=== PATIENT | female | born 1960 | race Caucasian/White ===

== ENCOUNTER → 2016-07-03 | Outpatient (REF) | payer OTHER ==
[~2016-07-03] MED LIST: /ADVA50050; /ADVA50050 IN; /ESOM40CA; /ESOM40CA OR; /ESOM40CA PO; /IPRAINH IN; /LAMO10TA PO; /METO25TAB PO; /MOM400 PO; /TIOT18INH; /TIOT18INH INH; /TRAZ15TA PO; /WARF2TA PO; /WARF3TA PO; /WARF5TA PO; ACET65TA; ACET65TA OR; ADV250INH INH; ADV500INH INH; ALBU17IN INH; ALBU17IN2 INH; ALBU83IN IN; ALBUTEROL INHL INH; ALBUTEROL LIQ INH; ALDA25TA2 PO; ANTIBIOTIC PO; APRESOLINE PO; ASPI81CH PO; ASPI81TA7 PO; ASPI81TA85 PO; ATIV1TAB10 PO; ATIV1TAB2 OR; ATIV1TAB2 PO; ATIV1TAB7 PO; ATROVENT0.02% INH; BABY81CH OR; BACITAB PO; BACITAB3 PO; BISAC5TA PO; CALC12502 PO; CARA1TAB2 PO; CEFT500T; CHOLPOW39 PO; CLAR10CA3 PO; CLEO150C PO; CLON0.5T; CLON1TAB OR; CLONAZAPAM PO; COLA100C PO; COLA100C2; COLA100C2 OR; COMBVENT; CORTOTSO AS; COUM2.5T11 PO; CYCL10TA PO; DOCU10ELUD PO; DOXY100T IV; DOXY100T OR; DOXY150C PO; DOXY75CA3 PO; DRIS1CAP PO; DULC5TAB PO; DUONSOL IN; DUONSOL NEB; Drisdol PO; EFFE150C; EFFE150C OR; EFFEXOR PO; EYEDRO OU; FERR325T3 PO; FLEXERIL PO; FLOVENT INH; FLUO20CA8 PO; FOLI1TAB OR; FOLI1TAB PO; FOSI10TA2; FOSI10TA2 PO; FOSI20TA2 OR; FURO40TA2 PO; HYDR25TA6; HYDR25TA6 OR; INVA1INJ IV; LAMI1TAB7 PO; LAMI25TA PO; LAMO10TA PO; LASI40TA OR; LASI40TA PO; LASI80TA PO; LEVA12INH INH; LEVA750T PO; LISI40TA OR; LOPR50TA PO; LORA10TA2 PO; LORA1TAB PO; LORA2TA PO; LYRI75CA OR; MAALOX PO; MAG OX PO; MAGN64TASA PO; META28.35 PO; METAPKT PO; METO12TA PO; METO25TA2 PO; METO25TA74 PO; MICRO K EXTENCAPS PO; MIRA3350 PO; MOM30SS PO; MONOPRIL PO; MYCOSTATIN SS; MYLI40DR PO; Metoprolol PO; NEUR300C; NEUR300C OR; NICO21DI4; NICO21DI4 TD; NITR4TASL SL; NYST1000 MT; NYST1000 PO; NYST1000 SS; NYSTATIN ORAL; NYSTATIN ORAL PO; NYSTATIN ORAL SS; NYSTATIN S PO; OCEAN NASAL SPRAY; OCEASPR; OXYGEN; OXYGEN INH; Oxygen; PAME50CA OR; PAXI20TA OR; PAXI20TA3 PO; PERC5TAB6 PO; PERC5TAB8 OR; PERC7.5T12 PO; PERC7.5T8 OR; PERC7.5T8 PO; PERCOCET PO; POTA10CA32 PO; PRED10TA PO; PRED10TA2; PRED10TA2 OR; PRED10TA2 PO; PRED1TA; PRED1TAB32 PO; PRED20TA OR; PRED20TA PO; PRED20TAB PO; PRED50TA OR; PRED50TA PO; PRED5SOL2 PO; PRED5TAB PO; PRIL40CA PO; PRINZIDE PO; PROZ40CA PO; PULM0.5S INH; RYZOLT PO; SALMDISK INH; SENN8.6T5; SENO8.6T9 PO; SIME40DR2 PO; SIMV20TA2; SIMV20TA2 OR; SIMV20TA2 PO; SING10TA31; SING10TA31 OR; SOLUMEDROL IV; SPIR1CAP INH; SPIR25TA2 PO; SPIRIVA HANDIHALER INH; SYMB80AE IN; TESS100C OR; TESS100C PO; THEO300C; THEO300C OR; THEO300C PO; THEODUR; TIOT18INH INH; TOPI100T OR; TOPR25TA PO; TRAM50TA2; TRAM50TA2 OR; TRAZ100T OR; TRAZ150T OR; TRAZ150T14 PO; TRAZ50TA; TRAZADONE OR; TRILIPIX PO; TUMS1000 PO; TYLE325T5 PO; ULTRTA PO; VENL37.5 OR; VENTAER INH; VIBR100C PO; VIT D PO; VITA100T PO; VITA200015 PO; VITA200016 PO; VITA20008 PO; VITA25003 PO; VITAMIN D50000 UNT PO; WARF-23 PO; WARF05TA PO; XANA0.5T; XANA0.5T OR; XOPE0.632 IN; XOPE1.252; XOPE1.252 IN; XOPE1.252 INH; ZANT300T PO; ZEST20TA4 OR; ZITH250T PO; ZITH500T; ZITH500T OR; ZITHTAB OR; ZOCO20TA PO; ZOFR20TA PO; [UNRECOGNIZED DRUG - CODE] PO; [UNRECOGNIZED DRUG - OTHER] NEB; [UNRECOGNIZED DRUG - OTHER] PO; [UNRECOGNIZED DRUG - OTHER] PO; [UNRECOGNIZED DRUG - OTHER] PO; [UNRECOGNIZED DRUG - OTHER] PO; lisinopril/hctz; paxil PO; potassium PO; robitussin PO
[2016-07-03 16:17] LABS: CALCIUM LEVEL 9.7 MG/DL (8.5-10.1); CREATININE FOR GFR 1.14 MG/DL (0.55-1.02); GLOMERULAR FILTRATION RATE 52.1 (>51); POTASSIUM SERUM 3.8 MEQ/L (3.5-5.1)
== END ==
LOC: M SFHCPLAZ 13:53
PROVIDERS: ATTEND Family Medicine
DX: E55.9 Vitamin D deficiency, unspecified (principal); I50.30 Unspecified diastolic (congestive) heart failure

== ENCOUNTER 2016-07-04 13:38 | Emergency (ER) | payer OTHER ==
[2016-07-04] MEDS ORDERED: IPRATROPIUM 0.5MG/ALBUTEROL 2.5MG INH SOL UD 3ML (DUONEB)(J7620) As Ordered ONE (14:57)
[2016-07-04 15:19] LABS: ABG BASE EXCESS 7.5 (-2.0-2.0); ABG DEVICE NASAL CANN; ABG STANDARD HCO3 31.4 MEQ/L (22.0-26.0); ABG pH (ARTERIAL) 7.365 UNITS (7.350-7.450)
[2016-07-04 15:22] LABS: ABG PARTIAL PRESSURE O2 122.7 mmHg (75.0-100.0)
[2016-07-04 15:25] LABS: ABG PARTIAL PRESSURE CO2 55.4 mmHg (35.0-45.0)
[2016-07-04 15:35] LABS: CALCIUM LEVEL 9.8 MG/DL (8.5-10.1); CREATININE FOR GFR 1.05 MG/DL (0.55-1.02); GLOMERULAR FILTRATION RATE 57.3 (>51); POTASSIUM SERUM 3.8 MEQ/L (3.5-5.1)
[2016-07-04 15:36] LABS: BASO % 0.4 % (0.0-1.0); EOS # 0.2 K/mm3 (0.0-0.50); EOS % 3.4 % (0.0-3.0); LARGE UNSTAINED CELL # 0.1 K/mm3 (0.0-0.4); LARGE UNSTAINED CELL % 2.1 % (0.0-4.0); LYMPH # 1.2 K/mm3 (1.5-4.5); LYMPH % 23.4 % (24.0-44.0); MEAN CORPUSCULAR HGB CONC 33.7 g/dl (32.0-36.5); MEAN CORPUSCULAR VOLUME 91.9 fl (80.0-96.0); MONO # 0.3 K/mm3 (0.0-0.8); MONO % 6.6 % (0.0-5.0); NEUTROPHILS # 3.1 K/mm3 (1.8-7.7); NEUTROPHILS % 64.1 % (36.0-66.0); PLATELET COUNT, AUTOMATED 218 k/mm3 (150-450); RED CELL DISTRIBUTION WIDTH 12.5 % (11.5-14.5); WHITE BLOOD COUNT 4.9 K/mm3 (4.0-10.0)
--- NOTE | 2016-07-04 15:57 | REP ---
Chest x-ray: Two views. History: Shortness of breath. Comparison chest x-ray is June 14, 2016. Findings: The lungs are symmetrically aerated and clear. Pleural angles are sharp. Heart size is normal. Pulmonary vasculature is not increased. Oxygen tubing and EKG monitoring electrodes overlie the chest. There is moderate wedging in one of the mid-thoracic vertebrae consistent with an osteoporotic wedge compression fracture deformity. This is unchanged when compared with the December 22, 2014 prior chest x-ray. Impression: No active disease. Old wedge compression fracture deformity in the mid T-spine. Signed by Braden Garrett MD 07/04/2016 04:27 P
--- NOTE | 2016-07-04 19:23 | EDDOCDS ---
Nurse's Notes [facility] Name: Katrin Alfred Age: 56 yrs Sex: Female : 1960 Arrival Date: 07/04/2016 Time: 13:38 Bed 19 Private MD: Shailesh Chu Diagnosis: Chronic obstructive pulmonary disease with (acute) exacerbation-resolved Presentation: 07/04 13:56 Presenting complaint: Patient states: SOB since leaving doctors office yesterday, cough [facility] with yellow sputum, cold symptoms. Adult Sepsis Screening: The patient does not have new or worsening altered mentation. Patient has a respiratory rate of greater than or equal to 22 (1 point). Systolic blood pressure is greater than 100. Patient has a qSOFA score of 1- Negative Sepsis Screen. Suicide/Homicide risk assessment- the patient denies having any suicidal and/or homicidal ideations and does not present with any other emotional, behavioral or mental health complaints. 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 Transition of care: patient was not received from another setting of care. Care prior to arrival: Medications administered prior to arrival: Duoneb Saline lock initiated. 13:56 Acuity: TAMIA Level 3 [facility] 13:56 Method Of Arrival: Ambulance [facility] Triage Assessment: 14:00 General: Appears in no apparent distress, Behavior is cooperative. Pain: Denies pain. [facility] HIV screening NA for this visit Offered previously. The patient is triaged at the bedside. See Assessment in Nurses Notes section of ED record. Neurological: Level of Consciousness is awake, alert, Oriented to person, place, time. Respiratory: Onset: The symptoms/episode began/occurred yesterday, Airway is patent Respiratory effort is even, unlabored, Respiratory pattern is regular, Breath sounds are diminished Breath sounds with wheezes. Derm: Skin is pink, warm & dry. Historical: - Allergies: Cephalexin; CLAVULANIC ACID; Erythromycin; iopamidol; Methylprednisolone; Morphine; moxifloxacin; PENICILLINS; QUINOLONES; SULFA (SULFONAMIDES); Ciprofloxacin; Augmentin; - Home Meds: 1. Albuterol Inhl as needed 2. aspirin 81 mg Oral tab 1 tab once daily 3. benzonatate 100 mg oral cap 1 cap as needed 4. bisacodyl 5 mg Oral tab 2 tabs once daily 5. budesonide oral once daily 6. ferrous sulfate 325 mg (65 mg iron) Oral TbEC 7. fluoxetine 40 mg Oral cap 1 cap once daily 8. furosemide 40 mg Oral tab 1 tab 2 times per day 9. lamotrigine 100 mg Oral tab 1 tab once daily 10. loratadine 10 mg Oral TbDL 1 tab once daily 11. lorazepam 0.5 mg Oral tab as needed 12. Miralax 17 gram/dose Oral powd once daily 13. omeprazole 40 mg Oral cpDR 1 cap once daily 14. ondansetron HCl 4 mg Oral tab every 6 hours 15. Percocet 5-325 mg Oral tab as needed 16. simethicone 40 mg/0.6 mL Oral drps as needed 17. simvastatin 20 mg Oral tab 1 tab once daily 18. Spiriva with HandiHaler 18 mcg Inhl CpDv 1 cap once daily 19. spironolactone 25 mg Oral tab once daily 20. trazodone 150 mg Oral tab nightly 21. warfarin 2.5 mg Oral tab 1 tab once daily 22. O2 2L NC - PMHx: Anxiety; Asthma; CHF; COPD; Depression; DVT; GERD; Hypercholesterolemia; Hypertension; - PSHx: Bladder suspension; Cataract Surgery- Bilateral; Tonsillectomy; Hysterectomy; - The history from nurses notes was reviewed: and I agree with what is documented. - Social history: Smoking status: Patient states former smoker of tobacco. No barriers to communication noted. - Family history: Not pertinent. - : The pt / caregiver states he / she is on anticoagulants: coumadin. Home medication list is obtained from the patient. - Hospitalizations: : The patient was recently seen at [facility], and discharged 2 month(s) ago. - Exposure Risk Screening:: None identified. - Immunization history:: All immunizations up-to-date. - Social history:: the patient smokes cigarettes the patient does not drink alcohol. Screenin:40 Infection Control. lbd 14:20 Screening information is obtained from the patient. Fall risk: No risks identified. [facility] Assistance ADL's: requires no assistance with activities of daily living. Abuse/DV Screen: The patient / caregiver reports he/she is: not in a situation that causes fear, pain or injury. Nutritional screening: No deficits noted. Advance Directives: There is no active DNR order. home support is adequate. Assessment: 14:03 General: see bedside triage assessment. Cardiovascular: Chest pain is denied. [facility] Respiratory: Airway is patent Respiratory effort is even, unlabored, Breath sounds are diminished Breath sounds with wheezes. 15:30 General: appears comfortable, breathing easier after respiratory treatments, denies [facility] needs at present. 16:36 General: Appears in no apparent distress, comfortable, Behavior is appropriate for age, cjh cooperative, no changes from previous, appears comfortable, denies needs at present. 17:43 General: Appears in no apparent distress, comfortable, Behavior is cooperative, reports cj increased pain in neck and back due to chronic issues and requesting pain meds which she states she would normally take at home, provider informed. No other problems or complaints voiced, patient states "I want to go home". 18:28 General: no new problems or complaints, awaiting medicaid transportation, called and [facility] arranged. reviewed discharge instructions, denies problems or complaints. Vital Signs: 14:00 BP 125 / 71; Pulse 103; Resp 22; Temp 100.4(TE); Pulse Ox 99% 2 lpm ; Weight 104.3 kg; [facility] Height 5 ft. 2 in. (157.48 cm); Pain 0/10; 14:20 BP 139 / 94 (auto/); [facility] 14:20 Pulse 96 MON; Pulse Ox 100% ; [facility] 15:22 BP 131 / 77 (auto/); [facility] 15:24 Pulse 102 MON; Pulse Ox 91% ; [facility] 16:51 Pulse 116 MON; Pulse Ox 97% ; [facility] 16:51 BP 142 / 93 (auto/); [facility] 17:36 Pulse 102 MON; Pulse Ox 95% ; [facility] 17:36 BP 142 / 98 (auto/); [facility] 17:47 BP 142 / 98; Pulse 103; Resp 18; Temp 97.3; Pulse Ox 95% ; Pain 7/10; h 18:09 Temp 97.8(O); ar3 14:00 Body Mass Index 42.06 (104.30 kg, 157.48 cm) [facility] Vitals: 14:00 Log In Time N/A - ambulance arrival. [facility] ED Course: 13:39 Patient visited by Renata Camacho, Medical Chemist. lbd 13:39 Shailesh Chu DO is Private Physician. lbd 13:39 Patient moved to Waiting lbd 13:39 Patient moved to 19 lbd 13:55 Diego Ramos MD is Attending Physician. pc 13:58 Triage Initiated cjh 14:20 Patient visited by Radha Melara PCA. ct3 14:20 The patient / caregiver is instructed regarding the plan of care and ED course. cjh 14:20 Maintain field IV. Gauge & site: left hand 22 guage. No procedures done that require [facility] assistance. 14:44 Patient visited by Diego Ramos MD. pc 14:53 EKG done. (by ED staff). Reviewed by Diego Ramos MD. ar3 14:54 Patient visited by Deysi Garcia PCA. ar3 15:04 CBC with Diff Sent. kcs 15:04 Basic Metabolic Profile Sent. kcs 15:04 B-Type Natiuretic Peptide Sent. kcs 15:05 -Blood Culture Sent. kcs 15:10 -Arterial Blood Gas Sent. sd7 15:23 Assisted to bedside commode. ar3 15:24 Patient visited by Deysi Garcia PCA. ar3 15:59 [facility] Payment Agreement was scanned into De[employer] and attached to record. gjb 16:28 Patient visited by Radha Melara PCA. ct3 16:33 Chest, 2 View (pa\\E\\lat) Returned. EDMS 16:51 Patient visited by Maggie Cordova. dem1 16:51 Assisted to bedside commode. dem1 17:27 Chest, 2 View (pa\\E\\lat) Returned. EDMS 17:43 [facility] is Referral Physician. pc 18:10 Patient visited by Deysi Garcia PCA. ar3 18:28 Discontinued lock intact, bleeding controlled, pressure dressing applied, No [facility] redness/swelling at site. Administered Medications: 15:05 Drug: Albuterol-Ipratropium 1 neb [ipratropium-albuterol 0.5 mg-3 mg(2.5 mg base)/3 mL sd7 nebulization soln (1 neb)] Route: Nebulizer; 15:14 Follow up: Response: Nebulizer completed sd7 15:35 Drug: Albuterol-Ipratropium 1 neb [ipratropium-albuterol 0.5 mg-3 mg(2.5 mg base)/3 mL sd7 nebulization soln (1 neb)] Route: Nebulizer; 15:45 Follow up: Response: Nebulizer completed sd7 16:15 Drug: Albuterol-Ipratropium 1 neb [ipratropium-albuterol 0.5 mg-3 mg(2.5 mg base)/3 mL sd7 nebulization soln (1 neb)] Route: Nebulizer; 16:25 Follow up: Response: Nebulizer completed sd7 RT: 15:00 ABG's drawn from right radial artery allens test done and positive pressure held for 5 sd7 minutes no bleeding noted pressure bandage applied specimen sent pt. tolerated well. 15:05 Initial Med Neb Given as ordered Patient was instructed and evaluated on procedure sd7 Patient tolerated procedure well without adverse effect. Respiratory: Breath sounds are diminished bilaterally. 15:35 Subsequent Med Neb Given as ordered Patient tolerated procedure well without adverse sd7 effect. Respiratory: Breath sounds are diminished bilaterally. 16:15 Subsequent Med Neb Given as ordered Patient tolerated procedure well without adverse sd7 effect. Respiratory: Breath sounds are diminished bilaterally. Order Results: Lab Order: -Arterial Blood Gas; SPEC'M 07/04/16 14:59 Test: ABG pH (ARTERIAL); Value: 7.365; Range: 7.350-7.450; Units: UNITS; Status: F Test: ABG PARTIAL PRESSURE CO2; Value: 55.4; Range: 35.0-45.0; Abnormal: Above high normal; Units: mmHg; Status: F Test: ABG PARTIAL PRESSURE O2; Value: 122.7; Range: 75.0-100.0; Abnormal: Above high normal; Units: mmHg; Status: F Test: ABG TOTAL CO2; Value: 37.0; Range: 22.0-29.0; Abnormal: Above high normal; Units: MEQ/L; Status: F Test: ABG HCO3; Value: 35.0; Range: 22.0-26.0; Abnormal: Above high normal; Units: MEQ/L; Status: F Test: ABG BASE EXCESS; Value: 7.5; Range: -2.0-2.0; Abnormal: Above high normal; Status: F Test: ABG STANDARD HCO3; Value: 31.4; Range: 22.0-26.0; Abnormal: Above high normal; Units: MEQ/L; Status: F Test: ABG O2 SATURATION; Value: 98.8; Range: 95.0-99.0; Units: %; Status: F Test: ABG DEVICE; Value: NASAL PHANI; Status: F Lab Order: B-Type Natiuretic Peptide; SPEC'M 07/04/16 15:06 Test: BRAIN NATRIURETIC PEPTIDE; Value: < 5.0; Range: <100; Units: PG/ML; Status: F Lab Order: Basic Metabolic Profile; SPEC'07/04/16 15:06 Test: GLUCOSE, FASTING; Value: 98; Range: 70-105; Units: MG/DL; Status: F Test: BLOOD UREA NITROGEN; Value: 13; Range: 7-18; Units: MG/DL; Status: F Test: CREATININE FOR GFR; Value: 1.05; Range: 0.55-1.02; Abnormal: Above high normal; Units: MG/DL; Status: F Test: GLOMERULAR FILTRATION RATE; Value: 57.3; Range: >51; Status: F Test: SODIUM LEVEL; Value: 139; Range: 136-145; Units: MEQ/L; Status: F Test: POTASSIUM SERUM; Value: 3.8; Range: 3.5-5.1; Units: MEQ/L; Status: F Test: CHLORIDE LEVEL; Value: 97; Range: 98-107; Abnormal: Below low normal; Units: MEQ/L; Status: F Test: CARBON DIOXIDE LEVEL; Value: 35; Range: 21-32; Abnormal: Above high normal; Units: MEQ/L; Status: F Test: ANION GAP; Value: 7; Range: 8-16; Abnormal: Below low normal; Units: MEQ/L; Status: F Test: CALCIUM LEVEL; Value: 9.8; Range: 8.5-10.1; Units: MG/DL; Status: F Test Note: ; Units are mL/min/1.73 m2 Chronic Kidney Disease Staging per NKF: Stage I & II GFR >=60 Normal to Mildly Decreased Stage III GFR 30-59 Moderately Decreased Stage IV GFR 15-29 Severely Decreased Stage V GFR <15 Very Little GFR Left ESRD GFR <15 on SET UP OPERATOR TOOL Lab Order: CBC with Diff; SPEC'M 07/04/16 15:06 Test: WHITE BLOOD COUNT; Value: 4.9; Range: 4.0-10.0; Units: K/mm3; Status: F Test: RED BLOOD COUNT; Value: 4.31; Range: 4.00-5.40; Units: M/mm3; Status: F Test: HEMOGLOBIN; Value: 13.4; Range: 12.0-16.0; Units: g/dl; Status: F Test: HEMATOCRIT; Value: 39.6; Range: 36.0-47.0; Units: %; Status: F Test: MEAN CORPUSCULAR VOLUME; Value: 91.9; Range: 80.0-96.0; Units: fl; Status: F Test: MEAN CORPUSCULAR HEMOGLOBIN; Value: 31.0; Range: 27.0-33.0; Units: pg; Status: F Test: MEAN CORPUSCULAR HGB CONC; Value: 33.7; Range: 32.0-36.5; Units: g/dl; Status: F Test: RED CELL DISTRIBUTION WIDTH; Value: 12.5; Range: 11.5-14.5; Units: %; Status: F Test: PLATELET COUNT, AUTOMATED; Value: 218; Range: 150-450; Units: k/mm3; Status: F Test: NEUTROPHILS %; Value: 64.1; Range: 36.0-66.0; Units: %; Status: F Test: LYMPH %; Value: 23.4; Range: 24.0-44.0; Abnormal: Below low normal; Units: %; Status: F Test: MONO %; Value: 6.6; Range: 0.0-5.0; Abnormal: Above high normal; Units: %; Status: F Test: EOS %; Value: 3.4; Range: 0.0-3.0; Abnormal: Above high normal; Units: %; Status: F Test: BASO %; Value: 0.4; Range: 0.0-1.0; Units: %; Status: F Test: LARGE UNSTAINED CELL %; Value: 2.1; Range: 0.0-4.0; Units: %; Status: F Test: NEUTROPHILS #; Value: 3.1; Range: 1.8-7.7; Units: K/mm3; Status: F Test: LYMPH #; Value: 1.2; Range: 1.5-4.5; Abnormal: Below low normal; Units: K/mm3; Status: F Test: MONO #; Value: 0.3; Range: 0.0-0.8; Units: K/mm3; Status: F Test: EOS #; Value: 0.2; Range: 0.0-0.50; Units: K/mm3; Status: F Test: BASO #; Value: 0.0; Range: 0.0-0.2; Units: K/mm3; Status: F Test: LARGE UNSTAINED CELL #; Value: 0.1; Range: 0.0-0.4; Units: K/mm3; Status: F Radiology Order: Chest, 2 View (pa\\E\\lat) Test: Chest, 2 View (pa\\E\\lat) REASON FOR EXAMINATION: Shortness of Breath; Chest x-ray: Two views.; ; History: Shortness of breath.; ; Comparison chest x-ray is June 14, 2016.; ; Findings: The lungs are symmetrically aerated and clear. Pleural angles are; sharp. Heart size is normal. Pulmonary vasculature is not increased. Oxygen; tubing and EKG monitoring electrodes overlie the chest. There is moderate; wedging in one of the mid-thoracic vertebrae consistent with an osteoporotic; wedge compression fracture deformity. This is unchanged when compared with the; December 22, 2014 prior chest x-ray.; ; Impression:; ; No active disease. Old wedge compression fracture deformity in the mid T-spine.; ; ; Signed by; Braden Garrett MD 07/04/2016 04:27 P; Outcome: 17:43 Discharge ordered by Provider. 18:28 Discharge Assessment: Patient awake, alert and oriented x 3. No cognitive and/or h functional deficits noted. Patient verbalized understanding of disposition instructions. patient administered narcotics - no. The following High Risk Discharge criteria are identified: None. Discharged to home via [facility]. Condition: good Condition: stable Condition: improved. Discharge instructions given to patient, Instructed on discharge instructions, follow up and referral plans. medication usage, Demonstrated understanding of instructions, medications, Pt was receptive of discharge instructions/ teaching. Prescriptions given X 2. No special radiology studies were completed. Property :Personal belongings accompany Pt. 19:22 Patient left the ED. ar3 Signatures: [facility] Diego Ramos MD MD pc Sleeman, Kacey, RN RN Renata Silva, Medical Chemist Unit lbd Jose, Deysi, ARCHIVIST POLITICAL HISTORY ARCHIVIST POLITICAL HISTORY ar3 Melara, Radha, ARCHIVIST POLITICAL HISTORY ARCHIVIST POLITICAL HISTORY ct3 Art, Maggie dem1 Marianne Stevens RN RN [facility] Guille,Mariama,RT RT sd7 Leda Argueta MTDD
--- NOTE | 2016-07-04 19:23 | EDDOCDS ---
Physician Documentation [facility] Name: Katrin Alfred Age: 56 yrs Sex: Female : 1960 Arrival Date: 07/04/2016 Time: 13:38 Bed 19 Private MD: Shailesh Chu Disposition: 07/04 17:41 Critical Care: Critical care not applicable. pc Disposition: 07/04/16 17:43 Discharged to Home/Self Care. Impression: Chronic obstructive pulmonary disease with (acute) exacerbation - resolved. - Condition is Stable. - Discharge Instructions: Chronic Obstructive Pulmonary Disease. - Prescriptions for Doxycycline Monohydrate 100 mg Oral Tablet - take 1 tablet by ORAL route every 12 hours for 10 days; 20 tablet. Prednisone 20 mg Oral Tablet - take 1 tablet by ORAL route as directed Day 1-3: 3 po, day 4-7: 2 po, day 8-10: 1 po; 20 tablet. - Medication Reconciliation, Local Pharmacy Hours form. - [facility]; When: Call to arrange an appointment; Reason: Continuance of care. - Problem is an acute exacerbation. - Symptoms have improved. HPI: 15:29 This 56 yrs old Female presents to ER via Ambulance with complaints of pc Breathing Difficulty. 15:29 The history is obtained from the patient. The patient presents with shortness of pc breath, with a prior history of COPD, congestive heart failure. The symptoms began gradually yesterday, and became worse today. The symptoms are continuous. There were no precipitating events that led to the current complaints. The patient has shortness of breath at rest, with light activity. At their worst, the symptoms were moderate. In the emergency department, the symptoms are mild. The patient's shortness of breath is aggravated by exertion, coughing, is alleviated by nothing. The patient has experienced similar episodes in the past, chronically. The patient has been recently seen at the [facility]. Historical: - Allergies: Cephalexin; CLAVULANIC ACID; Erythromycin; iopamidol; Methylprednisolone; Morphine; moxifloxacin; PENICILLINS; QUINOLONES; SULFA (SULFONAMIDES); Ciprofloxacin; Augmentin; - Home Meds: 1. Albuterol Inhl as needed 2. aspirin 81 mg Oral tab 1 tab once daily 3. benzonatate 100 mg oral cap 1 cap as needed 4. bisacodyl 5 mg Oral tab 2 tabs once daily 5. budesonide oral once daily 6. ferrous sulfate 325 mg (65 mg iron) Oral TbEC 7. fluoxetine 40 mg Oral cap 1 cap once daily 8. furosemide 40 mg Oral tab 1 tab 2 times per day 9. lamotrigine 100 mg Oral tab 1 tab once daily 10. loratadine 10 mg Oral TbDL 1 tab once daily 11. lorazepam 0.5 mg Oral tab as needed 12. Miralax 17 gram/dose Oral powd once daily 13. omeprazole 40 mg Oral cpDR 1 cap once daily 14. ondansetron HCl 4 mg Oral tab every 6 hours 15. Percocet 5-325 mg Oral tab as needed 16. simethicone 40 mg/0.6 mL Oral drps as needed 17. simvastatin 20 mg Oral tab 1 tab once daily 18. Spiriva with HandiHaler 18 mcg Inhl CpDv 1 cap once daily 19. spironolactone 25 mg Oral tab once daily 20. trazodone 150 mg Oral tab nightly 21. warfarin 2.5 mg Oral tab 1 tab once daily 22. O2 2L NC - PMHx: Anxiety; Asthma; CHF; COPD; Depression; DVT; GERD; Hypercholesterolemia; Hypertension; - PSHx: Bladder suspension; Cataract Surgery- Bilateral; Tonsillectomy; Hysterectomy; - The history from nurses notes was reviewed: and I agree with what is documented. - Social history: Smoking status: Patient states former smoker of tobacco. No barriers to communication noted. - Family history: Not pertinent. - : The pt / caregiver states he / she is on anticoagulants: coumadin. Home medication list is obtained from the patient. - Hospitalizations: : The patient was recently seen at [facility], and discharged 2 month(s) ago. - Exposure Risk Screening:: None identified. - Immunization history:: All immunizations up-to-date. - Social history:: the patient smokes cigarettes the patient does not drink alcohol. ROS: 15:29 All systems are negative except as listed. The gastrointestinal and genitourinary pc components are also addressed in the HPI. Exam: 15:29 General Appearance: no acute distress, alert, anxious. pc 15:29 EENT: normal eye inspection, ears, nose and throat normal, pharynx normal, mucous membranes moist 15:29 Neck: normal inspection. 15:29 Respiratory: no respiratory distress, no pleuritic chest pain, speaks in full sentences, auscultation reveals wheezes, diffusely. 15:29 Cardiovascular: normal heart rate, normal rhythm, no jugular venous distension appreciated, no murmurs, no gallop, no friction rub, peripheral pulses full and equal bilaterally. 15:29 Abdomen: non-tender, non-distended, no organomegaly. 15:29 Skin: normal color, warm, dry. 15:29 Extremities: non-tender, normal range of motion of all joints. 15:29 Neuro: alert, oriented to person, place and time, cranial nerves normal as tested, no motor deficits, no sensory deficits. 15:29 Psych: normal mood, affect is appropriate. Vital Signs: 14:00 BP 125 / 71; Pulse 103; Resp 22; Temp 100.4(TE); Pulse Ox 99% 2 lpm ; Weight 104.3 kg / cjh 229.94 lbs; Height 5 ft. 2 in. (157.48 cm); Pain 0/10; 14:20 BP 139 / 94 (auto/); cjh 14:20 Pulse 96 MON; Pulse Ox 100% ; cjh 15:22 BP 131 / 77 (auto/); cjh 15:24 Pulse 102 MON; Pulse Ox 91% ; cjh 16:51 Pulse 116 MON; Pulse Ox 97% ; cjh 16:51 BP 142 / 93 (auto/); cjh 17:36 Pulse 102 MON; Pulse Ox 95% ; cjh 17:36 BP 142 / 98 (auto/); cjh 17:47 BP 142 / 98; Pulse 103; Resp 18; Temp 97.3; Pulse Ox 95% ; Pain 7/10; cjh 18:09 Temp 97.8(O); ar3 14:00 Body Mass Index 42.06 (104.30 kg, 157.48 cm) [facility] MDM: 14:45 -Blood Culture (Adults Only), peripheral from different site, or from device/port/PICC pc etc. if present ordered. 14:45 Paint Technician/Pulse Ox/q 15 min VS ordered. pc 14:45 IV Saline Lock ordered. pc 14:45 Rhythm Strip to chart ordered. pc 14:45 Albuterol-Ipratropium 1 neb Nebulizer every 20 minutes x3 ordered. pc 14:45 Call Respiratory ordered. pc 14:46 -Arterial Blood Gas Ordered. EDMS 14:46 B-Type Natiuretic Peptide Ordered. EDMS 14:46 Basic Metabolic Profile Ordered. EDMS 14:46 CBC with Diff Ordered. EDMS 14:46 -Blood Culture Ordered. EDMS 14:47 Call Respiratory complete. kcs 14:47 Chest, 2 View (pa\E\lat) Ordered. EDMS 14:48 ECG WITH READING ER PHYS+CARDIAG ordered. EDMS 14:54 -Blood Culture (Adults Only), peripheral from different site, or from device/port/PICC lbd etc. if present complete. 14:57 BLOOD CULTURES Ordered. EDMS 15:29 Differential diagnosis: CHF, Chronic Obstructive Pulmonary Disease pneumonia. Plan: pc labs, EKG, CXR, nebs. Test interpretation: EKG. 15:39 Financial registration complete. [facility] [place] 15:59 [facility] Payment Agreement was scanned into [employer] and attached to record. gjb 17:14 -Arterial Blood Gas Reviewed. pc 17:14 Basic Metabolic Profile Reviewed. pc 17:14 CBC with Diff Reviewed. pc 17:14 B-Type Natiuretic Peptide Reviewed. pc 17:14 Chest, 2 View (pa\E\lat) Reviewed. pc 17:16 Repeat Temperature - Oral: Inform provider of result ordered. pc 17:41 Antibiotic administration: Not indicated, the patient does not have an appreciated pc infiltrate. Data reviewed: old medical records, vital signs, nurses notes, lab test results, all radiology studies and available results. Data reviewed: EKG(s). Test interpretation: LAB - all labs as ordered have been reviewed, interpreted and considered in the overall management of the clinical presentation; X-RAY -. The patient has been re-examined and re-evaluated. The patient's symptoms have markedly improved after treatment. Disposition: The historical points, examination findings, and any diagnostic results supporting the provided diagnosis, were discussed with the patient or legal guardian. The need for outpatient follow up with the provider listed on their discharge instructions was discussed. They were encouraged to return to [facility], or the nearest ED, if symptoms worsen/persist, or for any other questions/concerns. EC:29 Rate is 90 beats/min. Rhythm is regular, Normal Sinus Rhythm. QRS [place] is Normal. [place] pc interval is normal. QRS interval is normal. QT interval is normal. No Q waves. T waves are Normal. No ST changes noted. Clinical impression: Normal Sinus Rhythm. Administered Medications: 15:05 Drug: Albuterol-Ipratropium 1 neb [ipratropium-albuterol 0.5 mg-3 mg(2.5 mg base)/3 mL sd7 nebulization soln (1 neb)] Route: Nebulizer; 15:14 Follow up: Response: Nebulizer completed 15:35 Drug: Albuterol-Ipratropium 1 neb [ipratropium-albuterol 0.5 mg-3 mg(2.5 mg base)/3 mL sd7 nebulization soln (1 neb)] Route: Nebulizer; 15:45 Follow up: Response: Nebulizer completed 16:15 Drug: Albuterol-Ipratropium 1 neb [ipratropium-albuterol 0.5 mg-3 mg(2.5 mg base)/3 mL sd7 nebulization soln (1 neb)] Route: Nebulizer; 16:25 Follow up: Response: Nebulizer completed Signatures: Dispatcher [employer] EDMS Diego Ramos MD MD pc Sleeman, Kacey RN RN Renata Silva, Financial Coordinator Unit lbd Deysi Garcia, FLOATLIGHT LOADING SUPERVISOR FLOATLIGHT LOADING SUPERVISOR ar3 Marianne Stevens RN RN cjh Beck, Gabriela gjb Woodhouse, Samantha RT 7 The chart was reviewed and I authenticate all verbal orders and agree with the evaluation and treatment provided.Corrections: (The following items were deleted from the chart) 17:18 17:16 Ambulate Patient wt Pulse Oximetry ordered. [facility] Attachments: 15:59 [facility] [place] Agreement gjkinga MTDD
--- NOTE | 2016-07-05 08:01 | ECGEPIP ---
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
--- NOTE | 2016-07-06 20:23 | EDDOCDS ---
Physician Documentation [facility] Name: Katrin Alfred Age: 56 yrs Sex: Female : 1960 Arrival Date: 07/04/2016 Time: 13:38 Bed 19 Private MD: Shailesh Chu Disposition: 07/04 17:41 Critical Care: Critical care not applicable. pc Disposition: 07/04/16 17:43 Discharged to Home/Self Care. Impression: Chronic obstructive pulmonary disease with (acute) exacerbation - resolved. - Condition is Stable. - Discharge Instructions: Chronic Obstructive Pulmonary Disease. - Prescriptions for Doxycycline Monohydrate 100 mg Oral Tablet - take 1 tablet by ORAL route every 12 hours for 10 days; 20 tablet. Prednisone 20 mg Oral Tablet - take 1 tablet by ORAL route as directed Day 1-3: 3 po, day 4-7: 2 po, day 8-10: 1 po; 20 tablet. - Medication Reconciliation, Local Pharmacy Hours form. - [facility]; When: Call to arrange an appointment; Reason: Continuance of care. - Problem is an acute exacerbation. - Symptoms have improved. HPI: 15:29 This 56 yrs old Female presents to ER via Ambulance with complaints of pc Breathing Difficulty. 15:29 The history is obtained from the patient. The patient presents with shortness of pc breath, with a prior history of COPD, congestive heart failure. The symptoms began gradually yesterday, and became worse today. The symptoms are continuous. There were no precipitating events that led to the current complaints. The patient has shortness of breath at rest, with light activity. At their worst, the symptoms were moderate. In the emergency department, the symptoms are mild. The patient's shortness of breath is aggravated by exertion, coughing, is alleviated by nothing. The patient has experienced similar episodes in the past, chronically. The patient has been recently seen at the [facility]. Historical: - Allergies: Cephalexin; CLAVULANIC ACID; Erythromycin; iopamidol; Methylprednisolone; Morphine; moxifloxacin; PENICILLINS; QUINOLONES; SULFA (SULFONAMIDES); Ciprofloxacin; Augmentin; - Home Meds: 1. Albuterol Inhl as needed 2. aspirin 81 mg Oral tab 1 tab once daily 3. benzonatate 100 mg oral cap 1 cap as needed 4. bisacodyl 5 mg Oral tab 2 tabs once daily 5. budesonide oral once daily 6. ferrous sulfate 325 mg (65 mg iron) Oral TbEC 7. fluoxetine 40 mg Oral cap 1 cap once daily 8. furosemide 40 mg Oral tab 1 tab 2 times per day 9. lamotrigine 100 mg Oral tab 1 tab once daily 10. loratadine 10 mg Oral TbDL 1 tab once daily 11. lorazepam 0.5 mg Oral tab as needed 12. Miralax 17 gram/dose Oral powd once daily 13. omeprazole 40 mg Oral cpDR 1 cap once daily 14. ondansetron HCl 4 mg Oral tab every 6 hours 15. Percocet 5-325 mg Oral tab as needed 16. simethicone 40 mg/0.6 mL Oral drps as needed 17. simvastatin 20 mg Oral tab 1 tab once daily 18. Spiriva with HandiHaler 18 mcg Inhl CpDv 1 cap once daily 19. spironolactone 25 mg Oral tab once daily 20. trazodone 150 mg Oral tab nightly 21. warfarin 2.5 mg Oral tab 1 tab once daily 22. O2 2L NC - PMHx: Anxiety; Asthma; CHF; COPD; Depression; DVT; GERD; Hypercholesterolemia; Hypertension; - PSHx: Bladder suspension; Cataract Surgery- Bilateral; Tonsillectomy; Hysterectomy; - The history from nurses notes was reviewed: and I agree with what is documented. - Social history: Smoking status: Patient states former smoker of tobacco. No barriers to communication noted. - Family history: Not pertinent. - : The pt / caregiver states he / she is on anticoagulants: coumadin. Home medication list is obtained from the patient. - Hospitalizations: : The patient was recently seen at [facility], and discharged 2 month(s) ago. - Exposure Risk Screening:: None identified. - Immunization history:: All immunizations up-to-date. - Social history:: the patient smokes cigarettes the patient does not drink alcohol. ROS: 15:29 All systems are negative except as listed. The gastrointestinal and genitourinary pc components are also addressed in the HPI. Exam: 15:29 General Appearance: no acute distress, alert, anxious. pc 15:29 EENT: normal eye inspection, ears, nose and throat normal, pharynx normal, mucous membranes moist 15:29 Neck: normal inspection. 15:29 Respiratory: no respiratory distress, no pleuritic chest pain, speaks in full sentences, auscultation reveals wheezes, diffusely. 15:29 Cardiovascular: normal heart rate, normal rhythm, no jugular venous distension appreciated, no murmurs, no gallop, no friction rub, peripheral pulses full and equal bilaterally. 15:29 Abdomen: non-tender, non-distended, no organomegaly. 15:29 Skin: normal color, warm, dry. 15:29 Extremities: non-tender, normal range of motion of all joints. 15:29 Neuro: alert, oriented to person, place and time, cranial nerves normal as tested, no motor deficits, no sensory deficits. 15:29 Psych: normal mood, affect is appropriate. Vital Signs: 14:00 BP 125 / 71; Pulse 103; Resp 22; Temp 100.4(TE); Pulse Ox 99% 2 lpm ; Weight 104.3 kg / cjh 229.94 lbs; Height 5 ft. 2 in. (157.48 cm); Pain 0/10; 14:20 BP 139 / 94 (auto/); cjh 14:20 Pulse 96 MON; Pulse Ox 100% ; cjh 15:22 BP 131 / 77 (auto/); cjh 15:24 Pulse 102 MON; Pulse Ox 91% ; cjh 16:51 Pulse 116 MON; Pulse Ox 97% ; cjh 16:51 BP 142 / 93 (auto/); cjh 17:36 Pulse 102 MON; Pulse Ox 95% ; cjh 17:36 BP 142 / 98 (auto/); cjh 17:47 BP 142 / 98; Pulse 103; Resp 18; Temp 97.3; Pulse Ox 95% ; Pain 7/10; cjh 18:09 Temp 97.8(O); ar3 14:00 Body Mass Index 42.06 (104.30 kg, 157.48 cm) [facility] MDM: 14:45 -Blood Culture (Adults Only), peripheral from different site, or from device/port/PICC pc etc. if present ordered. 14:45 Filling Technician/Pulse Ox/q 15 min VS ordered. pc 14:45 IV Saline Lock ordered. pc 14:45 Rhythm Strip to chart ordered. pc 14:45 Albuterol-Ipratropium 1 neb Nebulizer every 20 minutes x3 ordered. pc 14:45 Call Respiratory ordered. pc 14:46 -Arterial Blood Gas Ordered. EDMS 14:46 B-Type Natiuretic Peptide Ordered. EDMS 14:46 Basic Metabolic Profile Ordered. EDMS 14:46 CBC with Diff Ordered. EDMS 14:46 -Blood Culture Ordered. EDMS 14:47 Call Respiratory complete. kcs 14:47 Chest, 2 View (pa\E\lat) Ordered. EDMS 14:48 ECG WITH READING ER PHYS+CARDIAG ordered. EDMS 14:54 -Blood Culture (Adults Only), peripheral from different site, or from device/port/PICC lbd etc. if present complete. 14:57 BLOOD CULTURES Ordered. EDMS 15:29 Differential diagnosis: CHF, Chronic Obstructive Pulmonary Disease pneumonia. Plan: pc labs, EKG, CXR, nebs. Test interpretation: EKG. 15:39 Financial registration complete. [facility] 15:59 [facility] Payment Agreement was scanned into [employer] and attached to record. gjb 17:14 -Arterial Blood Gas Reviewed. pc 17:14 Basic Metabolic Profile Reviewed. pc 17:14 CBC with Diff Reviewed. pc 17:14 B-Type Natiuretic Peptide Reviewed. pc 17:14 Chest, 2 View (pa\E\lat) Reviewed. pc 17:16 Repeat Temperature - Oral: Inform provider of result ordered. pc 17:41 Antibiotic administration: Not indicated, the patient does not have an appreciated pc infiltrate. Data reviewed: old medical records, vital signs, nurses notes, lab test results, all radiology studies and available results. Data reviewed: EKG(s). Test interpretation: LAB - all labs as ordered have been reviewed, interpreted and considered in the overall management of the clinical presentation; X-RAY -. The patient has been re-examined and re-evaluated. The patient's symptoms have markedly improved after treatment. Disposition: The historical points, examination findings, and any diagnostic results supporting the provided diagnosis, were discussed with the patient or legal guardian. The need for outpatient follow up with the provider listed on their discharge instructions was discussed. They were encouraged to return to [facility], or the nearest ED, if symptoms worsen/persist, or for any other questions/concerns. 07/05 09:27 ECG/EKG was scanned into [employer] and attached to record. gb EC/17 15:29 Rate is 90 beats/min. Rhythm is regular, Normal Sinus Rhythm. QRS [place] is Normal. [place] pc interval is normal. QRS interval is normal. QT interval is normal. No Q waves. T waves are Normal. No ST changes noted. Clinical impression: Normal Sinus Rhythm. Administered Medications: 15:05 Drug: Albuterol-Ipratropium 1 neb [ipratropium-albuterol 0.5 mg-3 mg(2.5 mg base)/3 mL sd7 nebulization soln (1 neb)] Route: Nebulizer; 15:14 Follow up: Response: Nebulizer completed 15:35 Drug: Albuterol-Ipratropium 1 neb [ipratropium-albuterol 0.5 mg-3 mg(2.5 mg base)/3 mL sd7 nebulization soln (1 neb)] Route: Nebulizer; 15:45 Follow up: Response: Nebulizer completed 16:15 Drug: Albuterol-Ipratropium 1 neb [ipratropium-albuterol 0.5 mg-3 mg(2.5 mg base)/3 mL sd7 nebulization soln (1 neb)] Route: Nebulizer; 16:25 Follow up: Response: Nebulizer completed Signatures: Dispatcher [employer] EDMS Diego Ramos MD MD pc Sleeman, Kacey, RN RN Renata Silva, Environmental Field Technician Unit lbd Ankita Blackman, Reg Reg gb Deysi Garcia, MEDICAL OFFICER PSYCHIATRY MEDICAL OFFICER PSYCHIATRY ar3 Marianne Stevens RN RN [facility] Leda Argueta [facility] Mariama Han RT The chart was reviewed and I authenticate all verbal orders and agree with the evaluation and treatment provided.Corrections: (The following items were deleted from the chart) 17:18 17:16 Ambulate Patient [facility] Pulse Oximetry ordered. [facility] Attachments: 15:59 [facility] [place] Payment Agreement gj 07/05 09:27 ECG/EKG Chart Complete MTDD
--- NOTE | 2016-07-06 20:23 | EDDOCDS ---
Physician Documentation [facility] Name: Katrin Alfred Age: 56 yrs Sex: Female : 1960 Arrival Date: 07/04/2016 Time: 13:38 Bed 19 Private MD: Shailesh Chu Disposition: 07/04 17:41 Critical Care: Critical care not applicable. pc Disposition: 07/04/16 17:43 Discharged to Home/Self Care. Impression: Chronic obstructive pulmonary disease with (acute) exacerbation - resolved. - Condition is Stable. - Discharge Instructions: Chronic Obstructive Pulmonary Disease. - Prescriptions for Doxycycline Monohydrate 100 mg Oral Tablet - take 1 tablet by ORAL route every 12 hours for 10 days; 20 tablet. Prednisone 20 mg Oral Tablet - take 1 tablet by ORAL route as directed Day 1-3: 3 po, day 4-7: 2 po, day 8-10: 1 po; 20 tablet. - Medication Reconciliation, Local Pharmacy Hours form. - [facility]; When: Call to arrange an appointment; Reason: Continuance of care. - Problem is an acute exacerbation. - Symptoms have improved. HPI: 15:29 This 56 yrs old Female presents to ER via Ambulance with complaints of pc Breathing Difficulty. 15:29 The history is obtained from the patient. The patient presents with shortness of pc breath, with a prior history of COPD, congestive heart failure. The symptoms began gradually yesterday, and became worse today. The symptoms are continuous. There were no precipitating events that led to the current complaints. The patient has shortness of breath at rest, with light activity. At their worst, the symptoms were moderate. In the emergency department, the symptoms are mild. The patient's shortness of breath is aggravated by exertion, coughing, is alleviated by nothing. The patient has experienced similar episodes in the past, chronically. The patient has been recently seen at the [facility]. Historical: - Allergies: Cephalexin; CLAVULANIC ACID; Erythromycin; iopamidol; Methylprednisolone; Morphine; moxifloxacin; PENICILLINS; QUINOLONES; SULFA (SULFONAMIDES); Ciprofloxacin; Augmentin; - Home Meds: 1. Albuterol Inhl as needed 2. aspirin 81 mg Oral tab 1 tab once daily 3. benzonatate 100 mg oral cap 1 cap as needed 4. bisacodyl 5 mg Oral tab 2 tabs once daily 5. budesonide oral once daily 6. ferrous sulfate 325 mg (65 mg iron) Oral TbEC 7. fluoxetine 40 mg Oral cap 1 cap once daily 8. furosemide 40 mg Oral tab 1 tab 2 times per day 9. lamotrigine 100 mg Oral tab 1 tab once daily 10. loratadine 10 mg Oral TbDL 1 tab once daily 11. lorazepam 0.5 mg Oral tab as needed 12. Miralax 17 gram/dose Oral powd once daily 13. omeprazole 40 mg Oral cpDR 1 cap once daily 14. ondansetron HCl 4 mg Oral tab every 6 hours 15. Percocet 5-325 mg Oral tab as needed 16. simethicone 40 mg/0.6 mL Oral drps as needed 17. simvastatin 20 mg Oral tab 1 tab once daily 18. Spiriva with HandiHaler 18 mcg Inhl CpDv 1 cap once daily 19. spironolactone 25 mg Oral tab once daily 20. trazodone 150 mg Oral tab nightly 21. warfarin 2.5 mg Oral tab 1 tab once daily 22. O2 2L NC - PMHx: Anxiety; Asthma; CHF; COPD; Depression; DVT; GERD; Hypercholesterolemia; Hypertension; - PSHx: Bladder suspension; Cataract Surgery- Bilateral; Tonsillectomy; Hysterectomy; - The history from nurses notes was reviewed: and I agree with what is documented. - Social history: Smoking status: Patient states former smoker of tobacco. No barriers to communication noted. - Family history: Not pertinent. - : The pt / caregiver states he / she is on anticoagulants: coumadin. Home medication list is obtained from the patient. - Hospitalizations: : The patient was recently seen at [facility], and discharged 2 month(s) ago. - Exposure Risk Screening:: None identified. - Immunization history:: All immunizations up-to-date. - Social history:: the patient smokes cigarettes the patient does not drink alcohol. ROS: 15:29 All systems are negative except as listed. The gastrointestinal and genitourinary pc components are also addressed in the HPI. Exam: 15:29 General Appearance: no acute distress, alert, anxious. pc 15:29 EENT: normal eye inspection, ears, nose and throat normal, pharynx normal, mucous membranes moist 15:29 Neck: normal inspection. 15:29 Respiratory: no respiratory distress, no pleuritic chest pain, speaks in full sentences, auscultation reveals wheezes, diffusely. 15:29 Cardiovascular: normal heart rate, normal rhythm, no jugular venous distension appreciated, no murmurs, no gallop, no friction rub, peripheral pulses full and equal bilaterally. 15:29 Abdomen: non-tender, non-distended, no organomegaly. 15:29 Skin: normal color, warm, dry. 15:29 Extremities: non-tender, normal range of motion of all joints. 15:29 Neuro: alert, oriented to person, place and time, cranial nerves normal as tested, no motor deficits, no sensory deficits. 15:29 Psych: normal mood, affect is appropriate. Vital Signs: 14:00 BP 125 / 71; Pulse 103; Resp 22; Temp 100.4(TE); Pulse Ox 99% 2 lpm ; Weight 104.3 kg / cjh 229.94 lbs; Height 5 ft. 2 in. (157.48 cm); Pain 0/10; 14:20 BP 139 / 94 (auto/); cjh 14:20 Pulse 96 MON; Pulse Ox 100% ; cjh 15:22 BP 131 / 77 (auto/); cjh 15:24 Pulse 102 MON; Pulse Ox 91% ; cjh 16:51 Pulse 116 MON; Pulse Ox 97% ; cjh 16:51 BP 142 / 93 (auto/); cjh 17:36 Pulse 102 MON; Pulse Ox 95% ; cjh 17:36 BP 142 / 98 (auto/); cjh 17:47 BP 142 / 98; Pulse 103; Resp 18; Temp 97.3; Pulse Ox 95% ; Pain 7/10; cjh 18:09 Temp 97.8(O); ar3 14:00 Body Mass Index 42.06 (104.30 kg, 157.48 cm) [facility] MDM: 14:45 -Blood Culture (Adults Only), peripheral from different site, or from device/port/PICC pc etc. if present ordered. 14:45 New Business Clerk/Pulse Ox/q 15 min VS ordered. pc 14:45 IV Saline Lock ordered. pc 14:45 Rhythm Strip to chart ordered. pc 14:45 Albuterol-Ipratropium 1 neb Nebulizer every 20 minutes x3 ordered. pc 14:45 Call Respiratory ordered. pc 14:46 -Arterial Blood Gas Ordered. EDMS 14:46 B-Type Natiuretic Peptide Ordered. EDMS 14:46 Basic Metabolic Profile Ordered. EDMS 14:46 CBC with Diff Ordered. EDMS 14:46 -Blood Culture Ordered. EDMS 14:47 Call Respiratory complete. kcs 14:47 Chest, 2 View (pa\E\lat) Ordered. EDMS 14:48 ECG WITH READING ER PHYS+CARDIAG ordered. EDMS 14:54 -Blood Culture (Adults Only), peripheral from different site, or from device/port/PICC lbd etc. if present complete. 14:57 BLOOD CULTURES Ordered. EDMS 15:29 Differential diagnosis: CHF, Chronic Obstructive Pulmonary Disease pneumonia. Plan: pc labs, EKG, CXR, nebs. Test interpretation: EKG. 15:39 Financial registration complete. [facility] 15:59 [facility] Payment Agreement was scanned into Mimvi and attached to record. gjb 17:14 -Arterial Blood Gas Reviewed. pc 17:14 Basic Metabolic Profile Reviewed. pc 17:14 CBC with Diff Reviewed. pc 17:14 B-Type Natiuretic Peptide Reviewed. pc 17:14 Chest, 2 View (pa\E\lat) Reviewed. pc 17:16 Repeat Temperature - Oral: Inform provider of result ordered. pc 17:41 Antibiotic administration: Not indicated, the patient does not have an appreciated pc infiltrate. Data reviewed: old medical records, vital signs, nurses notes, lab test results, all radiology studies and available results. Data reviewed: EKG(s). Test interpretation: LAB - all labs as ordered have been reviewed, interpreted and considered in the overall management of the clinical presentation; X-RAY -. The patient has been re-examined and re-evaluated. The patient's symptoms have markedly improved after treatment. Disposition: The historical points, examination findings, and any diagnostic results supporting the provided diagnosis, were discussed with the patient or legal guardian. The need for outpatient follow up with the provider listed on their discharge instructions was discussed. They were encouraged to return to [facility], or the nearest ED, if symptoms worsen/persist, or for any other questions/concerns. 07/05 09:27 ECG/EKG was scanned into Mimvi and attached to record. gb EC/17 15:29 Rate is 90 beats/min. Rhythm is regular, Normal Sinus Rhythm. QRS [place] is Normal. [place] pc interval is normal. QRS interval is normal. QT interval is normal. No Q waves. T waves are Normal. No ST changes noted. Clinical impression: Normal Sinus Rhythm. Administered Medications: 15:05 Drug: Albuterol-Ipratropium 1 neb [ipratropium-albuterol 0.5 mg-3 mg(2.5 mg base)/3 mL sd7 nebulization soln (1 neb)] Route: Nebulizer; 15:14 Follow up: Response: Nebulizer completed 15:35 Drug: Albuterol-Ipratropium 1 neb [ipratropium-albuterol 0.5 mg-3 mg(2.5 mg base)/3 mL sd7 nebulization soln (1 neb)] Route: Nebulizer; 15:45 Follow up: Response: Nebulizer completed 16:15 Drug: Albuterol-Ipratropium 1 neb [ipratropium-albuterol 0.5 mg-3 mg(2.5 mg base)/3 mL sd7 nebulization soln (1 neb)] Route: Nebulizer; 16:25 Follow up: Response: Nebulizer completed Signatures: Dispatcher [employer] EDMS Diego Ramos MD MD pc Sleeman, Kacey, RN RN Renata Silva, Oncology Admin Unit lbd Ankita Blackman, Reg Reg gb Deysi Garcia, INVENTORY AUDIT CLERK INVENTORY AUDIT CLERK ar3 Marianne Stevens RN RN [facility] Leda Argueta [facility] Mariama Han RT The chart was reviewed and I authenticate all verbal orders and agree with the evaluation and treatment provided.Corrections: (The following items were deleted from the chart) 17:18 17:16 Ambulate Patient [facility] Pulse Oximetry ordered. [facility] Attachments: 15:59 [facility] Payment Agreement gj 07/05 09:27 ECG/EKG Chart Complete MTDD
--- NOTE | 2016-07-06 20:23 | EDDOCDS ---
Nurse's Notes [facility] Name: Katrin Alfred Age: 56 yrs Sex: Female : 1960 Arrival Date: 07/04/2016 Time: 13:38 Bed 19 Private MD: Shailesh Chu Diagnosis: Chronic obstructive pulmonary disease with (acute) exacerbation-resolved Presentation: 07/04 13:56 Presenting complaint: Patient states: SOB since leaving doctors office yesterday, cough [facility] with yellow sputum, cold symptoms. Adult Sepsis Screening: The patient does not have new or worsening altered mentation. Patient has a respiratory rate of greater than or equal to 22 (1 point). Systolic blood pressure is greater than 100. Patient has a qSOFA score of 1- Negative Sepsis Screen. Suicide/Homicide risk assessment- the patient denies having any suicidal and/or homicidal ideations and does not present with any other emotional, behavioral or mental health complaints. Status: Patient is not a services host or dependent. Transition of care: patient was not received from another setting of care. Care prior to arrival: Medications administered prior to arrival: Duoneb Saline lock initiated. 13:56 Acuity: TAMIA Level 3 [facility] 13:56 Method Of Arrival: Ambulance [facility] Triage Assessment: 14:00 General: Appears in no apparent distress, Behavior is cooperative. Pain: Denies pain. [facility] HIV screening NA for this visit Offered previously. The patient is triaged at the bedside. See Assessment in Nurses Notes section of ED record. Neurological: Level of Consciousness is awake, alert, Oriented to person, place, time. Respiratory: Onset: The symptoms/episode began/occurred yesterday, Airway is patent Respiratory effort is even, unlabored, Respiratory pattern is regular, Breath sounds are diminished Breath sounds with wheezes. Derm: Skin is pink, warm & dry. Historical: - Allergies: Cephalexin; CLAVULANIC ACID; Erythromycin; iopamidol; Methylprednisolone; Morphine; moxifloxacin; PENICILLINS; QUINOLONES; SULFA (SULFONAMIDES); Ciprofloxacin; Augmentin; - Home Meds: 1. Albuterol Inhl as needed 2. aspirin 81 mg Oral tab 1 tab once daily 3. benzonatate 100 mg oral cap 1 cap as needed 4. bisacodyl 5 mg Oral tab 2 tabs once daily 5. budesonide oral once daily 6. ferrous sulfate 325 mg (65 mg iron) Oral TbEC 7. fluoxetine 40 mg Oral cap 1 cap once daily 8. furosemide 40 mg Oral tab 1 tab 2 times per day 9. lamotrigine 100 mg Oral tab 1 tab once daily 10. loratadine 10 mg Oral TbDL 1 tab once daily 11. lorazepam 0.5 mg Oral tab as needed 12. Miralax 17 gram/dose Oral powd once daily 13. omeprazole 40 mg Oral cpDR 1 cap once daily 14. ondansetron HCl 4 mg Oral tab every 6 hours 15. Percocet 5-325 mg Oral tab as needed 16. simethicone 40 mg/0.6 mL Oral drps as needed 17. simvastatin 20 mg Oral tab 1 tab once daily 18. Spiriva with HandiHaler 18 mcg Inhl CpDv 1 cap once daily 19. spironolactone 25 mg Oral tab once daily 20. trazodone 150 mg Oral tab nightly 21. warfarin 2.5 mg Oral tab 1 tab once daily 22. O2 2L NC - PMHx: Anxiety; Asthma; CHF; COPD; Depression; DVT; GERD; Hypercholesterolemia; Hypertension; - PSHx: Bladder suspension; Cataract Surgery- Bilateral; Tonsillectomy; Hysterectomy; - The history from nurses notes was reviewed: and I agree with what is documented. - Social history: Smoking status: Patient states former smoker of tobacco. No barriers to communication noted. - Family history: Not pertinent. - : The pt / caregiver states he / she is on anticoagulants: coumadin. Home medication list is obtained from the patient. - Hospitalizations: : The patient was recently seen at [facility], and discharged 2 month(s) ago. - Exposure Risk Screening:: None identified. - Immunization history:: All immunizations up-to-date. - Social history:: the patient smokes cigarettes the patient does not drink alcohol. Screenin:40 Infection Control. lbd 14:20 Screening information is obtained from the patient. Fall risk: No risks identified. [facility] Assistance ADL's: requires no assistance with activities of daily living. Abuse/DV Screen: The patient / caregiver reports he/she is: not in a situation that causes fear, pain or injury. Nutritional screening: No deficits noted. Advance Directives: There is no active DNR order. home support is adequate. Assessment: 14:03 General: see bedside triage assessment. Cardiovascular: Chest pain is denied. [facility] Respiratory: Airway is patent Respiratory effort is even, unlabored, Breath sounds are diminished Breath sounds with wheezes. 15:30 General: appears comfortable, breathing easier after respiratory treatments, denies [facility] needs at present. 16:36 General: Appears in no apparent distress, comfortable, Behavior is appropriate for age, cjh cooperative, no changes from previous, appears comfortable, denies needs at present. 17:43 General: Appears in no apparent distress, comfortable, Behavior is cooperative, reports cj increased pain in neck and back due to chronic issues and requesting pain meds which she states she would normally take at home, provider informed. No other problems or complaints voiced, patient states "I want to go home". 18:28 General: no new problems or complaints, awaiting medicaid transportation, called and [facility] arranged. reviewed discharge instructions, denies problems or complaints. Vital Signs: 14:00 BP 125 / 71; Pulse 103; Resp 22; Temp 100.4(TE); Pulse Ox 99% 2 lpm ; Weight 104.3 kg; [facility] Height 5 ft. 2 in. (157.48 cm); Pain 0/10; 14:20 BP 139 / 94 (auto/); [facility] 14:20 Pulse 96 MON; Pulse Ox 100% ; [facility] 15:22 BP 131 / 77 (auto/); [facility] 15:24 Pulse 102 MON; Pulse Ox 91% ; [facility] 16:51 Pulse 116 MON; Pulse Ox 97% ; [facility] 16:51 BP 142 / 93 (auto/); [facility] 17:36 Pulse 102 MON; Pulse Ox 95% ; [facility] 17:36 BP 142 / 98 (auto/); [facility] 17:47 BP 142 / 98; Pulse 103; Resp 18; Temp 97.3; Pulse Ox 95% ; Pain 7/10; h 18:09 Temp 97.8(O); ar3 14:00 Body Mass Index 42.06 (104.30 kg, 157.48 cm) [facility] Vitals: 14:00 Log In Time N/A - ambulance arrival. [facility] ED Course: 13:39 Patient visited by Renata Camacho, Ranch Hand Supervisor. lbd 13:39 Shailesh Chu DO is Private Physician. lbd 13:39 Patient moved to Waiting lbd 13:39 Patient moved to 19 lbd 13:55 Diego Ramos MD is Attending Physician. pc 13:58 Triage Initiated cjh 14:20 Patient visited by Radha Melara PCA. ct3 14:20 The patient / caregiver is instructed regarding the plan of care and ED course. cjh 14:20 Maintain field IV. Gauge & site: left hand 22 guage. No procedures done that require [facility] assistance. 14:44 Patient visited by Diego Ramos MD. pc 14:53 EKG done. (by ED staff). Reviewed by Diego Ramos MD. ar3 14:54 Patient visited by Deysi Garcia PCA. ar3 15:04 CBC with Diff Sent. kcs 15:04 Basic Metabolic Profile Sent. kcs 15:04 B-Type Natiuretic Peptide Sent. kcs 15:05 -Blood Culture Sent. kcs 15:10 -Arterial Blood Gas Sent. sd7 15:23 Assisted to bedside commode. ar3 15:24 Patient visited by Deysi Garcia PCA. ar3 15:59 [facility] [facility] [place] was scanned into [employer] and attached to record. gjb 16:28 Patient visited by Radha Melara PCA. ct3 16:33 Chest, 2 View (pa\\E\\lat) Returned. EDMS 16:51 Patient visited by Maggie Cordova. dem1 16:51 Assisted to bedside commode. dem1 17:27 Chest, 2 View (pa\\E\\lat) Returned. EDMS 17:43 [facility] is Referral Physician. pc 18:10 Patient visited by Deysi Garcia PCA. ar3 18:28 Discontinued lock intact, bleeding controlled, pressure dressing applied, No [facility] redness/swelling at site. 07/05 08:22 EKG-ADULT Returned. EDMS 09:27 ECG/EKG was scanned into [employer] and attached to record. gb Administered Medications: 07/04 15:05 Drug: Albuterol-Ipratropium 1 neb [ipratropium-albuterol 0.5 mg-3 mg(2.5 mg base)/3 mL sd7 nebulization soln (1 neb)] Route: Nebulizer; 15:14 Follow up: Response: Nebulizer completed sd7 15:35 Drug: Albuterol-Ipratropium 1 neb [ipratropium-albuterol 0.5 mg-3 mg(2.5 mg base)/3 mL sd7 nebulization soln (1 neb)] Route: Nebulizer; 15:45 Follow up: Response: Nebulizer completed 7 16:15 Drug: Albuterol-Ipratropium 1 neb [ipratropium-albuterol 0.5 mg-3 mg(2.5 mg base)/3 mL sd7 nebulization soln (1 neb)] Route: Nebulizer; 16:25 Follow up: Response: Nebulizer completed 7 RT: 15:00 ABG's drawn from right radial artery allens test done and positive pressure held for 5 sd7 minutes no bleeding noted pressure bandage applied specimen sent pt. tolerated well. 15:05 Initial Med Neb Given as ordered Patient was instructed and evaluated on procedure sd7 Patient tolerated procedure well without adverse effect. Respiratory: Breath sounds are diminished bilaterally. 15:35 Subsequent Med Neb Given as ordered Patient tolerated procedure well without adverse sd7 effect. Respiratory: Breath sounds are diminished bilaterally. 16:15 Subsequent Med Neb Given as ordered Patient tolerated procedure well without adverse sd7 effect. Respiratory: Breath sounds are diminished bilaterally. Order Results: Lab Order: -Arterial Blood Gas; SPEC'M 07/04/16 14:59 Test: ABG pH (ARTERIAL); Value: 7.365; Range: 7.350-7.450; Units: UNITS; Status: F Test: ABG PARTIAL PRESSURE CO2; Value: 55.4; Range: 35.0-45.0; Abnormal: Above high normal; Units: mmHg; Status: F Test: ABG PARTIAL PRESSURE O2; Value: 122.7; Range: 75.0-100.0; Abnormal: Above high normal; Units: mmHg; Status: F Test: ABG TOTAL CO2; Value: 37.0; Range: 22.0-29.0; Abnormal: Above high normal; Units: MEQ/L; Status: F Test: ABG HCO3; Value: 35.0; Range: 22.0-26.0; Abnormal: Above high normal; Units: MEQ/L; Status: F Test: ABG BASE EXCESS; Value: 7.5; Range: -2.0-2.0; Abnormal: Above high normal; Status: F Test: ABG STANDARD HCO3; Value: 31.4; Range: 22.0-26.0; Abnormal: Above high normal; Units: MEQ/L; Status: F Test: ABG O2 SATURATION; Value: 98.8; Range: 95.0-99.0; Units: %; Status: F Test: ABG DEVICE; Value: NASAL PHANI; Status: F Lab Order: -Blood Culture; SPEC'M 07/04/16 15:06 Test: BLOOD CULTURE; Value: No growth after 24 hours . All specimens observed; Status: F Test: BLOOD CULTURE; Value: for 5 days. Results final at that time.; Status: F Test: BLOOD CULTURE; Value: No Growth after 48 hours. All Specimens observed; Status: F Test: BLOOD CULTURE; Value: for 7 days. Results final at that time.; Status: F Lab Order: B-Type Natiuretic Peptide; SPEC'M 07/04/16 15:06 Test: BRAIN NATRIURETIC PEPTIDE; Value: < 5.0; Range: <100; Units: PG/ML; Status: F Lab Order: Basic Metabolic Profile; SPEC'M 07/04/16 15:06 Test: GLUCOSE, FASTING; Value: 98; Range: 70-105; Units: MG/DL; Status: F Test: BLOOD UREA NITROGEN; Value: 13; Range: 7-18; Units: MG/DL; Status: F Test: CREATININE FOR GFR; Value: 1.05; Range: 0.55-1.02; Abnormal: Above high normal; Units: MG/DL; Status: F Test: GLOMERULAR FILTRATION RATE; Value: 57.3; Range: >51; Status: F Test: SODIUM LEVEL; Value: 139; Range: 136-145; Units: MEQ/L; Status: F Test: POTASSIUM SERUM; Value: 3.8; Range: 3.5-5.1; Units: MEQ/L; Status: F Test: CHLORIDE LEVEL; Value: 97; Range: 98-107; Abnormal: Below low normal; Units: MEQ/L; Status: F Test: CARBON DIOXIDE LEVEL; Value: 35; Range: 21-32; Abnormal: Above high normal; Units: MEQ/L; Status: F Test: ANION GAP; Value: 7; Range: 8-16; Abnormal: Below low normal; Units: MEQ/L; Status: F Test: CALCIUM LEVEL; Value: 9.8; Range: 8.5-10.1; Units: MG/DL; Status: F Test Note: ; Units are mL/min/1.73 m2 Chronic Kidney Disease Staging per NKF: Stage I & II GFR >=60 Normal to Mildly Decreased Stage III GFR 30-59 Moderately Decreased Stage IV GFR 15-29 Severely Decreased Stage V GFR <15 Very Little GFR Left ESRD GFR <15 on MACHINE III COREMAKER Lab Order: CBC with Diff; SPEC'M 07/04/16 15:06 Test: WHITE BLOOD COUNT; Value: 4.9; Range: 4.0-10.0; Units: K/mm3; Status: F Test: RED BLOOD COUNT; Value: 4.31; Range: 4.00-5.40; Units: M/mm3; Status: F Test: HEMOGLOBIN; Value: 13.4; Range: 12.0-16.0; Units: g/dl; Status: F Test: HEMATOCRIT; Value: 39.6; Range: 36.0-47.0; Units: %; Status: F Test: MEAN CORPUSCULAR VOLUME; Value: 91.9; Range: 80.0-96.0; Units: fl; Status: F Test: MEAN CORPUSCULAR HEMOGLOBIN; Value: 31.0; Range: 27.0-33.0; Units: pg; Status: F Test: MEAN CORPUSCULAR HGB CONC; Value: 33.7; Range: 32.0-36.5; Units: g/dl; Status: F Test: RED CELL DISTRIBUTION WIDTH; Value: 12.5; Range: 11.5-14.5; Units: %; Status: F Test: PLATELET COUNT, AUTOMATED; Value: 218; Range: 150-450; Units: k/mm3; Status: F Test: NEUTROPHILS %; Value: 64.1; Range: 36.0-66.0; Units: %; Status: F Test: LYMPH %; Value: 23.4; Range: 24.0-44.0; Abnormal: Below low normal; Units: %; Status: F Test: MONO %; Value: 6.6; Range: 0.0-5.0; Abnormal: Above high normal; Units: %; Status: F Test: EOS %; Value: 3.4; Range: 0.0-3.0; Abnormal: Above high normal; Units: %; Status: F Test: BASO %; Value: 0.4; Range: 0.0-1.0; Units: %; Status: F Test: LARGE UNSTAINED CELL %; Value: 2.1; Range: 0.0-4.0; Units: %; Status: F Test: NEUTROPHILS #; Value: 3.1; Range: 1.8-7.7; Units: K/mm3; Status: F Test: LYMPH #; Value: 1.2; Range: 1.5-4.5; Abnormal: Below low normal; Units: K/mm3; Status: F Test: MONO #; Value: 0.3; Range: 0.0-0.8; Units: K/mm3; Status: F Test: EOS #; Value: 0.2; Range: 0.0-0.50; Units: K/mm3; Status: F Test: BASO #; Value: 0.0; Range: 0.0-0.2; Units: K/mm3; Status: F Test: LARGE UNSTAINED CELL #; Value: 0.1; Range: 0.0-0.4; Units: K/mm3; Status: F Lab Order: BLOOD CULTURES; SPEC'M 07/04/16 16:13 Test: BLOOD CULTURE; Value: No growth after 24 hours . All specimens observed; Status: F Test: BLOOD CULTURE; Value: for 5 days. Results final at that time.; Status: F Test: BLOOD CULTURE; Value: No Growth after 48 hours. All Specimens observed; Status: F Test: BLOOD CULTURE; Value: for 7 days. Results final at that time.; Status: F Radiology Order: Chest, 2 View (pa\\E\\lat) Test: Chest, 2 View (pa\\E\\lat) REASON FOR EXAMINATION: Shortness of Breath; Chest x-ray: Two views.; ; History: Shortness of breath.; ; Comparison chest x-ray is June 14, 2016.; ; Findings: The lungs are symmetrically aerated and clear. Pleural angles are; sharp. Heart size is normal. Pulmonary vasculature is not increased. Oxygen; tubing and EKG monitoring electrodes overlie the chest. There is moderate; wedging in one of the mid-thoracic vertebrae consistent with an osteoporotic; wedge compression fracture deformity. This is unchanged when compared with the; December 22, 2014 prior chest x-ray.; ; Impression:; ; No active disease. Old wedge compression fracture deformity in the mid T-spine.; ; ; Signed by; Braden Garrett MD 07/04/2016 04:27 P; Radiology Order: EKG-ADULT Test: EKG-ADULT REASON FOR EXAMINATION: Shortness of Breath; Stationary ECG Study; [facility] - ED; ; Test Date: 2016-07-04; Pat Name: KATRIN ALFRED Department:; Room: -; Gender: F Kiln Packer: rani; : 1960 Requested By: Diego Marin; Order Number: [id number] Reading MD: Greta Aponte; Measurements; Intervals [facility]; Rate: 90 P: 47; MS: 184 QRS: 35; QRSD: 98 T: 43; QT: 358; QTc: 440; Interpretive Statements; SINUS RHYTHM; BASELINE ARTIFACT LIMITS INTERPRETATION; Electronically Signed On 07-05-2016 8:00:38 EST by Greta Aponte; Outcome: 17:43 Discharge ordered by Provider. pc 18:28 Discharge Assessment: Patient awake, alert and oriented x 3. No cognitive and/or [facility] functional deficits noted. Patient verbalized understanding of disposition instructions. patient administered narcotics - no. The following High Risk Discharge criteria are identified: None. Discharged to home via [facility]. Condition: good Condition: stable Condition: improved. Discharge instructions given to patient, Instructed on discharge instructions, follow up and referral plans. medication usage, Demonstrated understanding of instructions, medications, Pt was receptive of discharge instructions/ teaching. Prescriptions given X 2. No special radiology studies were completed. Property :Personal belongings accompany Pt. 19:22 Patient left the ED. ar3 Signatures: Dispatcher [employer] EDMS Diego Ramos MD MD pc Sleeman, Kacey, RN RN Renata Silva, Ranch Hand Supervisor Unit lbd Ankita Blackman, Reg Reg gb Jose, Deysi, MACHINE CEMENTER MACHINE CEMENTER ar3 Radha Melara, MACHINE CEMENTER MACHINE CEMENTER ct3 Maggie Cordova dem1 Marianne Stevens RN RN [facility] Mariama Han,RT RT sd7 Leda Arguetab Chart Complete MTDD
== END 2016-07-04 19:22 | disposition home or self-care (01) ==
LOC: M ED 13:38
DX: J44.1 Chronic obstructive pulmonary disease with (acute) exacerbation (principal); F41.9 Anxiety disorder, unspecified; J45.909 Unspecified asthma, uncomplicated; I50.9 Heart failure, unspecified; F32.9 Major depressive disorder, single episode, unspecified; K21.9 Gastro-esophageal reflux disease without esophagitis; E78.00 Pure hypercholesterolemia, unspecified; I10 Essential (primary) hypertension; I82.90 Acute embolism and thrombosis of unspecified vein; Z87.891 Personal history of nicotine dependence; Z79.01 Long term (current) use of anticoagulants; Z79.82 Long term (current) use of aspirin; Z79.899 Other long term (current) drug therapy; Z88.0 Allergy status to penicillin; Z88.2 Allergy status to sulfonamides; Z88.1 Allergy status to other antibiotic agents; Z88.5 Allergy status to narcotic agent; Z88.8 Allergy status to other drugs, medicaments and biological substances

== ENCOUNTER 2016-07-10 09:57 | Inpatient (IN) | payer OTHER ==
[~2016-07-10] VITALS: Ht 167.6 cm; Wt 104.8 kg
[2016-07-10] MEDS: predniSONE 10 MG TAB PO SCH (09:00)
[2016-07-10] MEDS ORDERED: methylPREDNISolone INJ 125 MG/2 ML VIAL (J2930) As Ordered ONE (10:24)
[2016-07-10] MEDS ORDERED: IPRATROPIUM 0.5MG/ALBUTEROL 2.5MG INH SOL UD 3ML (DUONEB)(J7620) As Ordered ONE (10:28)
[2016-07-10] MEDS ORDERED: ALBUTEROL SULFATE 2.5 MG/0.5 ML INH NEB SOLN As Ordered ONE (10:28)
--- NOTE | 2016-07-10 10:46 | REP ---
Portable chest x-ray: Sitting AP view. History: Shortness of breath. Comparison chest x-ray is from July 04, 2016. Findings: The left hemidiaphragm is slightly elevated. Heart is not enlarged. The lungs are well inflated and clear. Pulmonary vasculature is not increased. Impression: No active disease. Signed by Braden Garrett MD 07/10/2016 01:41 P
[2016-07-10 11:03] LABS: ABG BASE EXCESS 10.3 (-2.0-2.0); ABG DEVICE NASAL CANN; ABG HCO3 36.9 MEQ/L (22.0-26.0); ABG PARTIAL PRESSURE CO2 57.3 mmHg (35.0-45.0); ABG PARTIAL PRESSURE O2 234.3 mmHg (75.0-100.0); ABG STANDARD HCO3 34.1 MEQ/L (22.0-26.0); ABG TOTAL CO2 38.7 MEQ/L (22.0-29.0); ABG pH (ARTERIAL) 7.427 UNITS (7.350-7.450)
[2016-07-10 11:33] LABS: BASO % 0.3 % (0.0-1.0); EOS % 0.2 % (0.0-3.0); LARGE UNSTAINED CELL # 0.1 K/mm3 (0.0-0.4); LARGE UNSTAINED CELL % 1.1 % (0.0-4.0); LYMPH # 1.4 K/mm3 (1.5-4.5); LYMPH % 15.1 % (24.0-44.0); MEAN CORPUSCULAR HEMOGLOBIN 30.3 pg (27.0-33.0); MEAN CORPUSCULAR HGB CONC 33.2 g/dl (32.0-36.5); MEAN CORPUSCULAR VOLUME 91.3 fl (80.0-96.0); MONO # 0.2 K/mm3 (0.0-0.8); MONO % 2.6 % (0.0-5.0); NEUTROPHILS # 7.4 K/mm3 (1.8-7.7); NEUTROPHILS % 80.8 % (36.0-66.0); PLATELET COUNT, AUTOMATED 227 k/mm3 (150-450); RED CELL DISTRIBUTION WIDTH 12.6 % (11.5-14.5); WHITE BLOOD COUNT 9.1 K/mm3 (4.0-10.0)
[2016-07-10 11:40] LABS: INR 2.75
[2016-07-10 11:48] LABS: ANION GAP 7 MEQ/L (8-16); BLOOD UREA NITROGEN 20 MG/DL (7-18); CALCIUM LEVEL 9.6 MG/DL (8.5-10.1); CARBON DIOXIDE LEVEL 36 MEQ/L (21-32); CHLORIDE LEVEL 94 MEQ/L (98-107); CREATININE FOR GFR 1.27 MG/DL (0.55-1.02); GLUCOSE, FASTING 104 MG/DL (70-105); POTASSIUM SERUM 3.6 MEQ/L (3.5-5.1); SODIUM LEVEL 137 MEQ/L (136-145)
[2016-07-10] MEDS ORDERED: IPRASOL4 INH (12:34)
[2016-07-10] MEDS ORDERED: LAMO150T PO (12:34)
[2016-07-10] MEDS ORDERED: OMEP40CA2 PO (12:34)
[2016-07-10] MEDS ORDERED: POTA1TAB14 PO (12:34)
[2016-07-10] MEDS ORDERED: ALPR1TAB3 PO (12:34)
[2016-07-10] MEDS ORDERED: VITA200038 PO (12:34)
[2016-07-10] MEDS ORDERED: ASMA1AER3 INH (12:34)
[2016-07-10] MEDS ORDERED: SENN1TAB4 PO (12:34)
[2016-07-10] MEDS ORDERED: WARF4TAB51 PO (12:34)
[2016-07-10] MEDS ORDERED: NITR4TASL SL (12:34)
[2016-07-10] MEDS ORDERED: ALBU17IN INH (12:36)
[2016-07-10] MEDS ORDERED: ACETAMINOPHEN TAB 650MG DOSE (2X325MG) PO PRN (12:45)
[2016-07-10] MEDS ORDERED: NITROGLYCERIN 0.4 MG SUBL TABLET SL PRN (13:00)
[2016-07-10] MEDS ORDERED: MIRALAX *UNIT DOSE* 17GM PACKET PO PRN (13:00)
[2016-07-10] MEDS ORDERED: DOXY100C PO (13:13)
[2016-07-10] MEDS ORDERED: PRED20TA PO (13:13)
--- NOTE | 2016-07-10 14:36 | EDDOCDS ---
Physician Documentation [facility] Name: Katrin Alfred Age: 56 yrs Sex: Female : 1960 Arrival Date: 07/10/2016 Time: 09:57 Bed 15 Private MD: Disposition: 07/10 12:11 Critical Care:. ml Disposition: 07/10/16 12:10 Hospitalization ordered by Armida Crane for Inpatient Admission. Preliminary diagnosis are Chronic obstructive pulmonary disease with (acute) exacerbation, Chronic obstructive pulmonary disease with acute lower respiratory infection, Dyspnea. - Bed requested for 4 [place]. - Status is Inpatient Admission. ms18 - Condition is Stable. - Problem is new. - Symptoms are unchanged. Historical: - Allergies: Augmentin; Cephalexin; Ciprofloxacin; CLAVULANIC ACID; Erythromycin; iopamidol; Methylprednisolone; Morphine; moxifloxacin; PENICILLINS; QUINOLONES; SULFA (SULFONAMIDES); Doxycycline; - Home Meds: 1. Albuterol Inhl as needed 2. aspirin 81 mg Oral tab 1 tab once daily 3. benzonatate 100 mg oral cap 1 cap as needed 4. bisacodyl 5 mg Oral tab 2 tabs once daily 5. budesonide oral once daily 6. ferrous sulfate 325 mg (65 mg iron) Oral TbEC 7. fluoxetine 40 mg Oral cap 1 cap once daily 8. furosemide 40 mg Oral tab 1 tab 2 times per day 9. lamotrigine 100 mg Oral tab 1 tab once daily 10. loratadine 10 mg Oral TbDL 1 tab once daily 11. lorazepam 0.5 mg Oral tab as needed 12. Miralax 17 gram/dose Oral powd once daily 13. O2 2L NC 14. omeprazole 40 mg Oral cpDR 1 cap once daily 15. ondansetron HCl 4 mg Oral tab every 6 hours 16. Percocet 5-325 mg Oral tab as needed 17. simethicone 40 mg/0.6 mL Oral drps as needed 18. simvastatin 20 mg Oral tab 1 tab once daily 19. Spiriva with HandiHaler 18 mcg Inhl CpDv 1 cap once daily 20. spironolactone 25 mg Oral tab once daily 21. trazodone 150 mg Oral tab nightly 22. warfarin 2.5 mg Oral tab 1 tab once daily 23. doxycycline hyclate 100 mg Oral cap 1 cap every 12 hours 24. prednisone 20 mg oral tab taper ing dose - started 07/04 - PMHx: Anxiety; Asthma; CHF; COPD; Depression; DVT; GERD; Hypercholesterolemia; Hypertension; - PSHx: Bladder suspension; Cataract Surgery- Bilateral; Tonsillectomy; Hysterectomy; - Social history: Smoking status: Patient states former smoker of tobacco. No barriers to communication noted, The patient speaks fluent Turkmen. - Family history: Not pertinent. - : The pt / caregiver states he / she is on anticoagulants: coumadin. Home medication list is obtained from [employer] import data. - Exposure Risk Screening:: None identified. Vital Signs: 10:14 BP 115 / 79; Pulse 99; Resp 22; Temp 98.6(TE); Pulse Ox 93% on 2 lpm NC; Pain 0/10; kcs 10:14 Weight 105.69 kg / 233.01 lbs (R); Height 67 in. (170.18 cm) (R); kcs 10:40 BP 132 / 73 (auto/); js13 10:40 Pulse 72 MON; Resp 20; Pulse Ox 94% on 2 lpm NC; js13 11:40 BP 131 / 90 (auto/); ms18 11:43 Pulse 74 MON; Pulse Ox 96% ; ms18 13:33 Pulse 84 MON; Pulse Ox 95% ; ms18 13:40 BP 122 / 91 (auto/); ms18 14:09 BP 161 / 56; Pulse 100; Resp 18; Temp 98; Pulse Ox 97% on 2 lpm NC; Pain 0/10; ms18 10:14 Body Mass Index 36.49 (105.69 kg, 170.18 cm) kcs MDM: 10:16 IV Saline Lock ordered. ml 10:16 Map Drafter/Pulse Ox/q 15 min VS ordered. ml 10:16 Rhythm Strip to chart ordered. ml 10:16 Call Respiratory ordered. ml 10:16 -Blood Culture (Adults Only), peripheral from different site, or from device/port/PICC ml etc. if present ordered. 10:17 ECG WITH READING ER PHYS+CARDIAG ordered. EDMS 10:18 CBC with Diff Ordered. EDMS 10:18 MED Profile Ordered. EDMS 10:18 CIP Ordered. EDMS 10:18 Troponin Ordered. EDMS 10:18 BNP Ordered. EDMS 10:18 -Arterial Blood Gas Ordered. EDMS 10:18 Lactic Acid (Cochran tube on ice) Ordered. EDMS 10:18 PT/INR Ordered. EDMS 10:18 PTT Ordered. EDMS 10:18 -Blood Culture Ordered. EDMS 10:18 Chest, 1 View Ordered. EDMS 10:19 -Blood Culture (Adults Only), peripheral from different site, or from device/port/PICC deg etc. if present complete. 10:20 Albuterol 5 mg Nebulizer once ordered. ml 10:20 Albuterol-Ipratropium 3 ml Inhalation once ordered. ml 10:20 Call Respiratory ordered. ml 10:20 Solu-MEDROL 125 mg IVP once ordered. ml 10:21 BLOOD CULTURES Ordered. EDMS 10:21 Call Respiratory complete. ml6 10:22 Call Respiratory complete. deg 11:15 BED REQUEST+ADM ordered. EDMS 11:26 Obtain sample by nasopharyngeal swab ordered. ml 11:27 -Influenza A&B Rapid Antigen - Nose Ordered. EDMS 11:57 [facility] Payment Agreement was scanned into [employer] and attached to record. lg 11:57 Financial registration complete. lg 12:10 CBC with Diff Reviewed. ml 12:10 MED Profile Reviewed. ml 12:10 -Arterial Blood Gas Reviewed. ml 12:10 PT/INR Reviewed. ml 12:10 CIP Reviewed. ml 12:10 Troponin Reviewed. ml 12:10 Lactic Acid (Cochran tube on ice) Reviewed. ml 12:10 PTT Reviewed. ml 12:10 Chest, 1 View Reviewed. ml 12:34 BNP Reviewed. ml 12:34 -Influenza A&B Rapid Antigen - Nose Reviewed. ml 12:48 Admission / Observation Status ordered. EDMS 12:48 2 GRAM SODIUM DIET ordered. EDMS Administered Medications: 10:45 Drug: Albuterol 5 mg [albuterol sulfate 2.5 mg/0.5 mL solution for nebulization (1 mL)] cs15 Route: Nebulizer; 14:14 Follow up: Response: No Adverse Reaction ms18 10:45 Drug: Albuterol-Ipratropium 3 ml [ipratropium-albuterol 0.5 mg-3 mg(2.5 mg base)/3 mL cs15 nebulization soln (3 mL)] Route: Inhalation; 11:14 Not Given (Patient Refused): Solu-MEDROL 125 mg IVP once js13 Critical Care Time: 12:11 Critical care time: Bedside Care: 90 minutes, Consultation: 10 minutes. Total time: 100 ml minutes Signatures: Dispatcher [employer] EDMS Burton Chopra MD MD ml Teresa Urbina, RN RN kcs Rosa Lan, Automotive Vehicle Inspector Unit deg Norma Haque, Reg Reg lg Amaury Brasher RN RN ml6 Ashwini CastellanosRN RN js13 Lilly Cruz RN RN ms18 Kishore Sylvester RN RN [place] Ant Gomez RT cs15 The chart was reviewed and I authenticate all verbal orders and agree with the evaluation and treatment provided.Attachments: 11:57 [facility] Payment Agreement lg MTDD
--- NOTE | 2016-07-10 14:36 | EDDOCDS ---
Nurse's Notes [facility] Name: Katrin Alfred Age: 56 yrs Sex: Female : 1960 Arrival Date: 07/10/2016 Time: 09:57 Bed 15 Private MD: Diagnosis: Chronic obstructive pulmonary disease with (acute) exacerbation;Chronic obstructive pulmonary disease with acute lower respiratory infection;Dyspnea Presentation: 07/10 10:01 Presenting complaint: Patient states: here for shortness of breath - seen here a few kcs days ago for the same. Adult Sepsis Screening: The patient does not have new or worsening altered mentation. Patient's respiratory rate is less than 22. Systolic blood pressure is greater than 100. Patient has a qSOFA score of 0- Negative Sepsis Screen. Suicide/Homicide risk assessment- the patient denies having any suicidal and/or homicidal ideations and does not present with any other emotional, behavioral or mental health complaints. Status: Patient is not a therapeutic activities services worker or dependent. Transition of care: patient was not received from another setting of care. 10:01 Acuity: TAMIA Level 3 kcs 10:01 Method Of Arrival: Ambulance kcs Triage Assessment: 10:14 General: Appears comfortable, well developed, well nourished, well groomed, Behavior is kcs cooperative, pleasant. Pain: Denies pain. HIV screening NA for this visit Offered previously. The patient is triaged at the bedside. See Assessment in Nurses Notes section of ED record. Neurological: Level of Consciousness is awake, alert. Respiratory: Airway is patent Respiratory effort is even, labored, Respiratory pattern is regular, symmetrical, harsh, congested cough. Derm: Skin is intact, is healthy with good turgor, Skin is dry, Skin is normal. 14:29 Respiratory: Onset: The symptoms/episode began/occurred . ms18 Historical: - Allergies: Augmentin; Cephalexin; Ciprofloxacin; CLAVULANIC ACID; Erythromycin; iopamidol; Methylprednisolone; Morphine; moxifloxacin; PENICILLINS; QUINOLONES; SULFA (SULFONAMIDES); Doxycycline; - Home Meds: 1. Albuterol Inhl as needed 2. aspirin 81 mg Oral tab 1 tab once daily 3. benzonatate 100 mg oral cap 1 cap as needed 4. bisacodyl 5 mg Oral tab 2 tabs once daily 5. budesonide oral once daily 6. ferrous sulfate 325 mg (65 mg iron) Oral TbEC 7. fluoxetine 40 mg Oral cap 1 cap once daily 8. furosemide 40 mg Oral tab 1 tab 2 times per day 9. lamotrigine 100 mg Oral tab 1 tab once daily 10. loratadine 10 mg Oral TbDL 1 tab once daily 11. lorazepam 0.5 mg Oral tab as needed 12. Miralax 17 gram/dose Oral powd once daily 13. O2 2L NC 14. omeprazole 40 mg Oral cpDR 1 cap once daily 15. ondansetron HCl 4 mg Oral tab every 6 hours 16. Percocet 5-325 mg Oral tab as needed 17. simethicone 40 mg/0.6 mL Oral drps as needed 18. simvastatin 20 mg Oral tab 1 tab once daily 19. Spiriva with HandiHaler 18 mcg Inhl CpDv 1 cap once daily 20. spironolactone 25 mg Oral tab once daily 21. trazodone 150 mg Oral tab nightly 22. warfarin 2.5 mg Oral tab 1 tab once daily 23. doxycycline hyclate 100 mg Oral cap 1 cap every 12 hours 24. prednisone 20 mg oral tab taper ing dose - started 07/04 - PMHx: Anxiety; Asthma; CHF; COPD; Depression; DVT; GERD; Hypercholesterolemia; Hypertension; - PSHx: Bladder suspension; Cataract Surgery- Bilateral; Tonsillectomy; Hysterectomy; - Social history: Smoking status: Patient states former smoker of tobacco. No barriers to communication noted, The patient speaks fluent Romanian. - Family history: Not pertinent. - : The pt / caregiver states he / she is on anticoagulants: coumadin. Home medication list is obtained from [employer] import data. - Exposure Risk Screening:: None identified. Screenin:43 Screening information is obtained from the patient. Fall risk: At risk due to age. ms18 Assistance ADL's: requires no assistance with activities of daily living. Abuse/DV Screen: The patient / caregiver reports he/she is: not in a situation that causes fear, pain or injury. Nutritional screening: No deficits noted. Advance Directives: There is no living will. home support is adequate. Assessment: 10:44 General: Appears in no apparent distress, Behavior is appropriate for age, cooperative. js13 Pain: Denies pain. Neurological: Level of Consciousness is awake, alert. Cardiovascular: Rhythm is sinus rhythm Chest pain is denied. Respiratory: Airway is patent Respiratory effort is even, unlabored, Respiratory pattern is regular, symmetrical, Breath sounds are diminished Breath sounds with wheezes. Respiratory: Reports cough that is non-productive, persistent. Derm: Skin is pink, warm & dry. 11:47 General: Appears in no apparent distress, comfortable, obese, Behavior is appropriate ms18 for age, cooperative, pleasant. Pain: Denies pain. Neurological: Level of Consciousness is awake, alert, obeys commands, Oriented to person, place, time. Respiratory: Airway is patent Respiratory effort is even, unlabored, Respiratory pattern is regular, symmetrical. Derm: Skin is pink, warm & dry. 12:54 General: Appears in no apparent distress, comfortable, Behavior is appropriate for age, ms18 cooperative. General: Pt in no acute distress. Will continue to monitor pt. Neurological: No deficits noted. Respiratory: Airway is patent Respiratory effort is even, unlabored. Derm: Skin is pink, warm & dry. 13:48 General: Appears in no apparent distress, comfortable, Behavior is appropriate for age, ms18 cooperative. Pain: Denies pain. Neurological: No deficits noted. Respiratory: Airway is patent Respiratory effort is even, unlabored, Respiratory pattern is regular, symmetrical. Derm: Skin is pink, warm & dry. 14:27 General: Appears in no apparent distress, comfortable, Behavior is appropriate for age, ms18 cooperative. Pain: Denies pain. Neurological: No deficits noted. Respiratory: Airway is patent Respiratory effort is even, unlabored, Respiratory pattern is regular, symmetrical. GI: Abdomen is non- distended. Derm: Skin is pink, warm & dry. Vital Signs: 10:14 BP 115 / 79; Pulse 99; Resp 22; Temp 98.6(TE); Pulse Ox 93% on 2 lpm NC; Pain 0/10; kcs 10:14 Weight 105.69 kg (R); Height 67 in. (170.18 cm) (R); kcs 10:40 BP 132 / 73 (auto/); js13 10:40 Pulse 72 MON; Resp 20; Pulse Ox 94% on 2 lpm NC; js13 11:40 BP 131 / 90 (auto/); ms18 11:43 Pulse 74 MON; Pulse Ox 96% ; ms18 13:33 Pulse 84 MON; Pulse Ox 95% ; ms18 13:40 BP 122 / 91 (auto/); ms18 14:09 BP 161 / 56; Pulse 100; Resp 18; Temp 98; Pulse Ox 97% on 2 lpm NC; Pain 0/10; ms18 10:14 Body Mass Index 36.49 (105.69 kg, 170.18 cm) [facility] Vitals: 10:14 Log In Time N/A - ambulance arrival. [facility] ED Course: 09:58 Patient visited by Rosa Lan, Husbandry Technician. deg 09:58 Patient moved to Waiting deg 09:58 Patient moved to 15 deg 10:03 Triage Initiated kcs 10:10 Burton Chopra MD is Attending Physician. ml 10:10 Patient visited by Burton Chopra MD. ml 10:28 EKG done. (by ED staff). Reviewed by Burton Chopra MD. ct3 10:33 Patient visited by Radha Melara PCA. ct3 10:47 Chest, 1 View Returned. EDMS 10:56 Patient visited by Best Morrison PCA. jlf 11:00 -Arterial Blood Gas Sent. cs15 11:39 Patient visited by Best Morrison PCA. jlf 11:43 The patient / caregiver is instructed regarding the plan of care and ED course. Patient ms18 has correct armband on for positive identification. Placed in gown. desk monitor on. Pulse ox on. NIBP on. Property :Personal belongings accompany Pt. 11:43 Inserted saline lock: 20 gauge in right forearm The patient tolerated the procedure ms18 well. Pt was a hard stick and was stuck several times by EMS and ED staff. 11:47 Patient visited by Lilly Cruz RN. ms18 11:56 Patient name changed from Katrin\S\Ema\S\Crosbie\S\ to Katrin\S\M\S\Crosbie. EDMS 11:57 [facility] Payment Agreement was scanned into [employer] and attached to record. lg 12:10 Armida Crane is Hospitalizing Provider. ml 12:59 Lilly Cruz,RN is Primary Nurse. ms18 13:48 Patient visited by Lilly Cruz RN. ms18 14:07 Chest, 1 View Returned. EDMS 14:27 Patient visited by Lilly Cruz RN. ms18 14:27 No procedures done that require assistance. ms18 Administered Medications: 10:45 Drug: Albuterol 5 mg [albuterol sulfate 2.5 mg/0.5 mL solution for nebulization (1 mL)] cs15 Route: Nebulizer; 14:14 Follow up: Response: No Adverse Reaction ms18 10:45 Drug: Albuterol-Ipratropium 3 ml [ipratropium-albuterol 0.5 mg-3 mg(2.5 mg base)/3 mL cs15 nebulization soln (3 mL)] Route: Inhalation; 11:14 Not Given (Patient Refused): Solu-MEDROL 125 mg IVP once js13 RT: 11:00 ABG's drawn from left radial artery allens test done and positive pressure held for 5 cs15 minutes no bleeding noted pressure bandage applied specimen sent pt. tolerated well. Initial Med Neb Given as ordered. O2 via nasal cannula \T\ 2L/min. Respiratory: Respiratory effort is labored, Respiratory pattern is regular Breath sounds with crackles bilaterally. Breath sounds with wheezes bilaterally. at expiration Order Results: Lab Order: CBC with Diff; SPEC'M 07/10/16 11:09 Test: WHITE BLOOD COUNT; Value: 9.1; Range: 4.0-10.0; Units: K/mm3; Status: F Test: RED BLOOD COUNT; Value: 4.53; Range: 4.00-5.40; Units: M/mm3; Status: F Test: HEMOGLOBIN; Value: 13.7; Range: 12.0-16.0; Units: g/dl; Status: F Test: HEMATOCRIT; Value: 41.4; Range: 36.0-47.0; Units: %; Status: F Test: MEAN CORPUSCULAR VOLUME; Value: 91.3; Range: 80.0-96.0; Units: fl; Status: F Test: MEAN CORPUSCULAR HEMOGLOBIN; Value: 30.3; Range: 27.0-33.0; Units: pg; Status: F Test: MEAN CORPUSCULAR HGB CONC; Value: 33.2; Range: 32.0-36.5; Units: g/dl; Status: F Test: RED CELL DISTRIBUTION WIDTH; Value: 12.6; Range: 11.5-14.5; Units: %; Status: F Test: PLATELET COUNT, AUTOMATED; Value: 227; Range: 150-450; Units: k/mm3; Status: F Test: NEUTROPHILS %; Value: 80.8; Range: 36.0-66.0; Abnormal: Above high normal; Units: %; Status: F Test: LYMPH %; Value: 15.1; Range: 24.0-44.0; Abnormal: Below low normal; Units: %; Status: F Test: MONO %; Value: 2.6; Range: 0.0-5.0; Units: %; Status: F Test: EOS %; Value: 0.2; Range: 0.0-3.0; Units: %; Status: F Test: BASO %; Value: 0.3; Range: 0.0-1.0; Units: %; Status: F Test: LARGE UNSTAINED CELL %; Value: 1.1; Range: 0.0-4.0; Units: %; Status: F Test: NEUTROPHILS #; Value: 7.4; Range: 1.8-7.7; Units: K/mm3; Status: F Test: LYMPH #; Value: 1.4; Range: 1.5-4.5; Abnormal: Below low normal; Units: K/mm3; Status: F Test: MONO #; Value: 0.2; Range: 0.0-0.8; Units: K/mm3; Status: F Test: EOS #; Value: 0.0; Range: 0.0-0.50; Units: K/mm3; Status: F Test: BASO #; Value: 0.0; Range: 0.0-0.2; Units: K/mm3; Status: F Test: LARGE UNSTAINED CELL #; Value: 0.1; Range: 0.0-0.4; Units: K/mm3; Status: F Lab Order: MED Profile; SPEC'M 07/10/16 11:09 Test: GLUCOSE, FASTING; Value: 104; Range: 70-105; Units: MG/DL; Status: F Test: BLOOD UREA NITROGEN; Value: 20; Range: 7-18; Abnormal: Above high normal; Units: MG/DL; Status: F Test: CREATININE FOR GFR; Value: 1.27; Range: 0.55-1.02; Abnormal: Above high normal; Units: MG/DL; Status: F Test: GLOMERULAR FILTRATION RATE; Value: 46.0; Range: >51; Abnormal: Below low normal; Status: F Test: SODIUM LEVEL; Value: 137; Range: 136-145; Units: MEQ/L; Status: F Test: POTASSIUM SERUM; Value: 3.6; Range: 3.5-5.1; Units: MEQ/L; Status: F Test: CHLORIDE LEVEL; Value: 94; Range: 98-107; Abnormal: Below low normal; Units: MEQ/L; Status: F Test: CARBON DIOXIDE LEVEL; Value: 36; Range: 21-32; Abnormal: Above high normal; Units: MEQ/L; Status: F Test: ANION GAP; Value: 7; Range: 8-16; Abnormal: Below low normal; Units: MEQ/L; Status: F Test: CALCIUM LEVEL; Value: 9.6; Range: 8.5-10.1; Units: MG/DL; Status: F Test Note: ; Units are mL/min/1.73 m2 Chronic Kidney Disease Staging per NKF: Stage I & II GFR >=60 Normal to Mildly Decreased Stage III GFR 30-59 Moderately Decreased Stage IV GFR 15-29 Severely Decreased Stage V GFR <15 Very Little GFR Left ESRD GFR <15 on VP TREASURER Lab Order: CIP; SPEC'M 07/10/16 11:09 Test: CPK CREATINE PHOSPHOKINASE; Value: 42; Range: 26-192; Units: U/L; Status: F Test: CK-MB VALUE MASS; Value: 1.0; Range: 0.0-3.6; Units: NG/ML; Status: F Test: MB/CK RELATIVE INDEX; Value: 2.38; Range: < OR =4; Status: F Test Note: ; DIAGNOSIS CRITERIA MMB ng/ml Relative Index (RI) NON-AMI < or = 5 N/A COCHRAN ZONE > 5 < or = 4 AMI > 5 > 4 Lab Order: Troponin; SPEC'M 07/10/16 11:09 Test: TROPONIN I; Value: < 0.02; Range: < 0.10; Units: NG/ML; Status: F Test Note: ; Troponin I Reference Interval for CDB [employer] LOCI: 99th Percentile= 0.00-0.045 ng/ml Risk Stratification: <= 0.10 ng/ml Decreased Risk for Adverse Clinical Events. 0.10-1.50 ng/ml Increased Risk for Adverse Clinical Events. Evaluation of additional criterion and/or repeat testing in 2-6 hours is suggested to rule out myocardial damage. >= 1.50 ng/ml Indicative of Myocardial Injury. Lab Order: BNP; SPEC07/10/16 11:09 Test: BRAIN NATRIURETIC PEPTIDE; Value: 10.3; Range: <100; Units: PG/ML; Status: F Lab Order: -Arterial Blood Gas; 07/10/16 10:58 Test: ABG pH (ARTERIAL); Value: 7.427; Range: 7.350-7.450; Units: UNITS; Status: F Test: ABG PARTIAL PRESSURE CO2; Value: 57.3; Range: 35.0-45.0; Abnormal: Above high normal; Units: mmHg; Status: F Test: ABG PARTIAL PRESSURE O2; Value: 234.3; Range: 75.0-100.0; Abnormal: Above high normal; Units: mmHg; Status: F Test: ABG TOTAL CO2; Value: 38.7; Range: 22.0-29.0; Abnormal: Above high normal; Units: MEQ/L; Status: F Test: ABG HCO3; Value: 36.9; Range: 22.0-26.0; Abnormal: Above high normal; Units: MEQ/L; Status: F Test: ABG BASE EXCESS; Value: 10.3; Range: -2.0-2.0; Abnormal: Above high normal; Status: F Test: ABG STANDARD HCO3; Value: 34.1; Range: 22.0-26.0; Abnormal: Above high normal; Units: MEQ/L; Status: F Test: ABG O2 SATURATION; Value: 99.8; Range: 95.0-99.0; Abnormal: Above high normal; Units: %; Status: F Test: ABG DEVICE; Value: NASAL PHANI; Status: F Lab Order: Lactic Acid (Cochran tube on ice); 07/10/16 11:09 Test: LACTIC ACID LEVEL, LACTATE; Value: 1.5; Range: 0.4-2.0; Units: MMOL/L; Status: F Lab Order: PT/INR; 07/10/16 11:09 Test: PROTHROMBIN TIME; Value: 29.1; Range: 12.3-14.5; Abnormal: Above high normal; Units: SECONDS; Status: F Test: INR; Value: 2.75; Status: F Test Note: ; THERAPUTIC HUMAN INR VALUES INDICATIONS NORMAL RANGES PROPHYLAXIS/TREATMENT OF: VENOUS THROMBOSIS 2.0-3.0 PULMONARY EMBOLISM 2.0-3.0 PREVENTION OF SYSTEMIC EMBOLISM FROM: TISSUE HEART VALVES 2.0-3.0 ACUTE MYOCARDIAL INFARCTION 2.0-3.0 VALVULAR HEART DISEASE 2.0-3.0 ATRIAL FIBRILLATION 2.0-3.0 MECHANICAL VALVES(HIGH RISK) 2.5-3.5 RECURRENT MYOCARDIAL INFARCTION 2.5-3.5 Lab Order: PTT; SPEC'M 07/10/16 11:09 Test: PARTIAL THROMBOPLASTIN TIME; Value: 36.8; Range: 26.6-37.1; Units: SECONDS; Status: F Lab Order: -Influenza A&B Rapid Antigen - Nose; SPEC'M 07/10/16 11:56 Test: INFLUENZA A RAPID SCR by ICA; Value: INFLUENZA A RESULTS NEGATIVE; Status: F Test: INFLUENZA A RAPID SCR by ICA; Value: Comments:; Status: F Test: INFLUENZA B RAPID SCR by ICA; Value: INFLUENZA B RESULTS NEGATIVE; Status: F Test Note: ; The Influenza test is a direct rapid immunoassay for the qualitative detection of Influenza viral antigen. Cell culture (Viral Culture) testing should be considered to confirm NEGATIVE results and to assist in detecting other viruses that can provide similar clinical symptoms. Please contact the lab within 24 hours ([phone]) if confirmatory testing is desired. Radiology Order: Chest, 1 View Test: Chest, 1 View REASON FOR EXAMINATION: sob; Portable chest x-ray: Sitting AP view.; ; History: Shortness of breath.; ; Comparison chest x-ray is from July 04, 2016.; ; Findings: The left hemidiaphragm is slightly elevated. Heart is not enlarged.; The lungs are well inflated and clear. Pulmonary vasculature is not increased.; ; Impression:; ; No active disease.; ; ; Signed by; Braden Garrett MD 07/10/2016 01:41 P; Outcome: 12:10 Decision to Hospitalize by Provider. 14:27 Discharge Assessment: Patient awake, alert and oriented x 3. No cognitive and/or ms18 functional deficits noted. Patient verbalized understanding of disposition instructions. patient administered narcotics - no. The following High Risk Discharge criteria are identified: None. Admitted to Med/Surg accompanied by tech, via stretcher, with oxygen, with chart. Condition: good Condition: stable. No special radiology studies were completed. 14:34 Patient left the ED. ms18 Signatures: Dispatcher [employer] EDMS Burton Chopra MD MD ml Sleeman, Kacey, RN RN kcs Rosa Lan, Husbandry Technician Unit deg Norma Haque, Reg Reg lg Radha Melara, [employer] CAKE DESIGNER [employer] CAKE DESIGNER ct3 Ashwini Castellanos,RN RN js13 Best Morrison, [employer] DESIGNER [employer] DESIGNER linf Lilly Cruz,BRYNN RN ms18 Ant Gomez,RT RT cs15 MTDD
[2016-07-10 14:40] VITALS: BP 138/83
[2016-07-10] MEDS: IPRATROPIUM 0.5MG/ALBUTEROL 2.5MG INH SOL UD 3ML (DUONEB)(J7620) NEB PRN ×2 (15:24→23:29)
[2016-07-10] MEDS: WARFARIN SOD 2 MG TAB PO SCH (15:25)
[2016-07-10] MEDS: VITAMIN D 1,000 INTERNATIONAL UNITS TABLET PO SCH (15:25)
[2016-07-10] MEDS: ASPIRIN 81 MG CHEW TABLET PO SCH (15:25)
[2016-07-10] MEDS: OMEPRAZOLE 20 MG CAP PO SCH (15:25)
[2016-07-10] MEDS: FUROSEMIDE 40 MG TAB PO SCH (15:26)
[2016-07-10] MEDS: SPIRONOLACTONE 25 MG TAB PO SCH (15:26)
[2016-07-10] MEDS: PERCOCET 5MG/325MG TAB PO PRN (15:26)
[2016-07-10] MEDS: POTASSIUM CHLORIDE 10 MEQ SR TABLET PO SCH (15:26)
--- NOTE | 2016-07-10 15:58 | HPE ---
DATE OF ADMISSION: 07/10/2016 REASON FOR ADMISSION: Shortness of breath, chronic obstructive pulmonary disease (COPD) exacerbation. HISTORY OF PRESENT ILLNESS: The patient is a 56-year-old female with a past medical history significant for chronic obstructive pulmonary disease (COPD), normally on two liters of oxygen continuously, who presented to the emergency room stating that she has been feeling short of breath since last Sunday. She presented to the emergency room at that time where she was given doxycycline and prednisone. She felt better shortly after discharge from the emergency room and then two days ago started to get short of breath again. She presented to the emergency room today with similar symptoms. She denies any fevers or chills. Denies any chest pain. She stated she has been having a cough and shortness of breath. No nausea or vomiting. She has had increased wheezes. In the emergency room, the patient was found to be saturating 93% on two liters but had diffuse wheezes. She was given one breathing treatment and stated it make her feel better. The hospitalist was called for the admission. REVIEW OF SYSTEMS: 12-point review of systems was obtained. All which was negative except for those mentioned above. PAST MEDICAL HISTORY: Significant for: 1. Chronic obstructive pulmonary disease (COPD), on oxygen. 2. Congestive heart failure. 3. Asthma. 4. Anxiety. 5. Depression. 6. History of deep vein thrombosis (DVT). 7. Gastroesophageal reflux disease (GERD). 8. Hyperlipidemia. PAST SURGICAL HISTORY: Significant for: 1. Bladder suspension. 2. Bilateral cataract. 3. Tonsillectomy. 4. Hysterectomy. 5. Right hip replacement. ALLERGIES: AUGMENTIN, CEPHALEXIN, CIPROFLOXACIN, LEVULINIC ACID, ERYTHROMYCIN, SOLU-MEDROL, MORPHINE, MOXIFLOXACIN, PENICILLIN, and SULFA. HOME MEDICATIONS: Include: - Ventolin two puffs inhaled every four hours as needed for shortness of breath - albuterol ipratropium inhaled every four hours as need for shortness of breath - alprazolam 1 mg by mouth twice a day - aspirin 81 mg by mouth daily - vitamin D3 2000 units by mouth daily - doxycycline 100 mg by mouth twice a day - Lasix 40 mg by mouth twice a day - lamotrigine 150 mg by mouth daily - nitroglycerin 0.4 mg sublingually every five minutes as needed for chest pain - omeprazole 40 mg by mouth daily - Percocet 5/325 mg every six hours as needed for 6 pain - MiraLax as needed for constipation - potassium chloride 40 mEq by mouth daily - prednisone 20 mg by mouth daily - senna two tablets by mouth at bedtime - Zocor 20 mg at bedtime - spironolactone 25 mg by mouth twice a day - trazodone 150 mg by mouth at bedtime - Coumadin 2 mg by mouth daily SOCIAL HISTORY: The patient had history of tobacco use, quit six years ago, used to smoke two packs per day for 40 years. No alcohol use. Lives at home alone. Walks with a walker. FAMILY HISTORY: Noncontributory. PHYSICAL EXAMINATION: VITAL SIGNS: Blood pressure 115/79, pulse 99, respiratory rate 22, temperature 98.6, pulse oximetry 93% on two liters. HEENT: Pupils are equal, round, and react to light and accommodation. NECK: Supple. No jugular venous distention (JVD). LUNGS: Diffuse wheezes in all lung white. ABDOMEN: Soft, nontender, nondistended. EXTREMITIES: No clubbing, cyanosis or edema. NEUROLOGIC: Cranial nerves II-XII grossly intact. LABORATORY FINDINGS: WBC is 9.1, hemoglobin 13.7, hematocrit 41.4, platelet count 227. Sodium 137, potassium 3.6, chloride 94, BUN 20, creatinine 1.27, lactic acid 1.5, troponin less than 0.02, BNP 10.3. INR 2.75. Chest x-ray shows no active disease. ASSESSMENT AND PLAN: 1. Chronic obstructive pulmonary disease (COPD) exacerbation. We will continue the patient on DuoNebs. We will start the patient on prednisone 30 mg by mouth daily. Continue to monitor. Continue oxygen to keep saturation between 88% and 92%. We will admit the patient for observation overnight. If symptoms improve by tomorrow, the patient will likely be able to be discharged home. 2. History of congestive heart failure. We will continue the patient's home medications, Lasix and spironolactone. 3. History of deep vein thrombosis (DVT). We will continue Coumadin home dose. International normalized ratio (INR) is current therapeutic. We will repeat in the morning. 4. History of gastroesophageal reflux disease (GERD). Continue the patient's home omeprazole 40 mg daily. 5. Hyperlipidemia. Continue the patient's simvastatin 20 mg by mouth daily. 6. DVT prophylaxis. The patient is currently on Coumadin.
--- NOTE | 2016-07-10 17:32 | ECGEPIP ---
Stationary ECG Study [facility] - ED Test Date: 2016-07-10 Pat Name: JULITO PUENTE Department: Room: - Gender: F [employer] Former: ct : 1960 Requested By: Burton Chopra Order Number: [id number] Reading MD: Diego Ramos Measurements Intervals [place] Rate: 99 P: 78 SC: 179 QRS: 49 QRSD: 98 T: 80 QT: 339 QTc: 436 Interpretive Statements SINUS RHYTHM NONSPECIFIC T-WAVE ABNORMALITY BASELINE ARTIFACT AFFECTS INTERPRETATION Electronically Signed On 07-10-2016 17:32:20 EST by Diego Ramos
[2016-07-10] MEDS: IPRATROPIUM 0.5MG/ALBUTEROL 2.5MG INH SOL UD 3ML (DUONEB)(J7620) NEB SCH (19:13)
[2016-07-10] MEDS: SENNA 8.6 MG TAB (SENOKOT) PO SCH (20:44)
[2016-07-10] MEDS: SIMVASTATIN 20 MG TAB PO SCH (20:44)
[2016-07-10] MEDS: ALPRAZolam 0.5 MG TAB PO SCH (20:44)
[2016-07-10] MEDS ORDERED: FUROSEMIDE 40 MG TAB PO SCH (21:00)
[2016-07-10] MEDS ORDERED: SPIRONOLACTONE 25 MG TAB PO SCH (21:00)
[2016-07-10 22:00] VITALS: BP 121/73
[2016-07-10] MEDS: traZODone 50 MG TAB PO SCH (22:13)
[2016-07-11] MEDS: PERCOCET 5MG/325MG TAB PO PRN ×4 (00:30→21:56)
[2016-07-11] MEDS: IPRATROPIUM 0.5MG/ALBUTEROL 2.5MG INH SOL UD 3ML (DUONEB)(J7620) NEB SCH ×4 (02:00→19:52)
[2016-07-11] MEDS: IPRATROPIUM 0.5MG/ALBUTEROL 2.5MG INH SOL UD 3ML (DUONEB)(J7620) NEB PRN ×2 (03:19→17:21)
[2016-07-11 06:00] VITALS: BP 130/79
[2016-07-11 07:01] LABS: BASO % 0.2 % (0.0-1.0); EOS % 0.1 % (0.0-3.0); LARGE UNSTAINED CELL # 0.1 K/mm3 (0.0-0.4); LARGE UNSTAINED CELL % 1.2 % (0.0-4.0); LYMPH # 1.3 K/mm3 (1.5-4.5); LYMPH % 18.2 % (24.0-44.0); MEAN CORPUSCULAR HEMOGLOBIN 30.5 pg (27.0-33.0); MEAN CORPUSCULAR HGB CONC 33.5 g/dl (32.0-36.5); MEAN CORPUSCULAR VOLUME 91.2 fl (80.0-96.0); MONO # 0.3 K/mm3 (0.0-0.8); MONO % 4.7 % (0.0-5.0); NEUTROPHILS # 5.2 K/mm3 (1.8-7.7); NEUTROPHILS % 75.7 % (36.0-66.0); PLATELET COUNT, AUTOMATED 243 k/mm3 (150-450); RED CELL DISTRIBUTION WIDTH 12.7 % (11.5-14.5); WHITE BLOOD COUNT 6.9 K/mm3 (4.0-10.0)
[2016-07-11 07:07] LABS: INR 2.83
[2016-07-11 07:30] LABS: ALBUMIN 3.4 GM/DL (3.2-5.2); ALBUMIN/GLOBULIN RATIO 0.77 (1.00-1.93); BILIRUBIN,TOTAL 0.2 MG/DL (0.2-1.0); CALCIUM LEVEL 9.6 MG/DL (8.5-10.1); CREATININE FOR GFR 1.25 MG/DL (0.55-1.02); GLOMERULAR FILTRATION RATE 46.9 (>51); MAGNESIUM LEVEL 2.4 MG/DL (1.8-2.4); TOTAL PROTEIN 7.8 GM/DL (6.4-8.2)
[2016-07-11] MEDS: BUDESONIDE 0.5 MG/2 ML INHALATION SUSPENSION INH SCH ×2 (08:00→19:52)
[2016-07-11] MEDS: OMEPRAZOLE 20 MG CAP PO SCH (08:35)
[2016-07-11] MEDS: VITAMIN D 1,000 INTERNATIONAL UNITS TABLET PO SCH (08:35)
[2016-07-11] MEDS: POTASSIUM CHLORIDE 10 MEQ SR TABLET PO SCH (08:35)
[2016-07-11] MEDS: SPIRONOLACTONE 25 MG TAB PO SCH ×2 (08:36→16:41)
[2016-07-11] MEDS: ALPRAZolam 0.5 MG TAB PO SCH ×2 (08:36→21:55)
[2016-07-11] MEDS: ASPIRIN 81 MG CHEW TABLET PO SCH (08:36)
[2016-07-11] MEDS: FUROSEMIDE 40 MG TAB PO SCH ×2 (08:36→16:41)
[2016-07-11] MEDS: predniSONE 10 MG TAB PO SCH (08:36)
[2016-07-11 08:37] VITALS: BP 134/71
--- NOTE | 2016-07-11 11:07 | IPNPDOC ---
Assessment/Plan Date Seen The patient was seen on 07/11/16. Problems Problems: (1) COPD exacerbation Onset Date: 01/11/2014 Status: Acute Problem Text: will continue with nebulizations and prednisone. will add budesonide nebulizations. (2) Chronic respiratory failure with hypoxia and hypercapnia Status: Acute Problem Text: acute on chronic respiratory failure now improved. (3) Diastolic CHF, chronic Status: Chronic Response to Treatment: Stable Problem Text: continue lasix and spironolactone. (4) DVT (deep venous thrombosis) Status: Chronic Problem Text: continue coumadin , inr therapeutic. (5) HTN (hypertension) Status: Chronic (6) Morbid obesity with BMI of 45.0-49.9, adult Status: Chronic (7) GERD (gastroesophageal reflux disease) Status: Chronic (8) Anxiety Status: Chronic (9) Lung nodule Status: Chronic (10) Hypercholesteremia Status: Chronic Plan / VTE VTE Prophylaxis Ordered?: Yes Subjective Review of Systems CC/HPI The patient is a 56-year-old female admitted with a reason for visit of Copd Exacerbation. Events since last encounter breathing a little better but still not back to baseline, still feels very tight , cough better today. no fever or chills, no abdominal pain nausea or vomiting or diarrhea. Objective Physical Examination General Exam: Positive: Alert, No Acute Distress Eye Exam: Positive: Conjunctiva & lids normal, EOMI, PERRLA, Negative: Sclera icteric ENT Exam: Positive: Atraumatic, Mucous membr. moist/pink, Pharynx Normal Neck Exam: Positive: Supple, Negative: JVD, thyromegaly Chest Exam: Positive: Diminished, Rhonchi, Wheezing Heart Exam: Positive: Normal S1, Normal S2, Rate Normal, Regular Rhythm, Negative: Murmurs, Rubs Abdomen Exam: Positive: Normal bowel sounds, Soft, Negative: Hepatospenomegaly, Tenderness Extremity Exam: Positive: Normal pulses, Negative: Clubbing, Cyanosis, Edema Vital Signs/I&O Vital Signs Date Time Temp Pulse Resp B/P Pulse Ox O2 Delivery O2 Flow Rate FiO2 07/11/16 08:37 87 134/71 07/11/16 07:07 18 07/11/16 06:00 96.4 98 Nasal Cannula 2.0 I&O- Last 24 Hours up to 6 AM 07/11/16 05:59 Intake Total 720 ml Output Total 500 ml Balance 220 ml Laboratory Data Labs 24H Laboratory Tests 2 07/10/16 11:09: Activated Partial Thromboplast Time 36.8, Anion Gap 7L, B-Type Natriuretic Peptide 10.3, White Blood Count 9.1, Red Blood Count 4.53, Hemoglobin 13.7, Hematocrit 41.4, Mean Corpuscular Volume 91.3, Mean Corpuscular Hemoglobin 30.3 , Mean Corpuscular Hemoglobin Concent 33.2, Red Cell Distribution Width 12.6, Platelet Count 227, Neutrophils (%) (Auto) 80.8H, Lymphocytes (%) (Auto) 15.1L, Monocytes (%) (Auto) 2.6, Eosinophils (%) (Auto) 0.2, Basophils (%) (Auto) 0.3, Neutrophils # (Auto) 7.4, Lymphocytes # (Auto) 1.4L, Monocytes # (Auto) 0.2, Eosinophils # (Auto) 0.0, Basophils # (Auto) 0.0, Blood Urea Nitrogen 20H, Creatinine 1.27H, Sodium Level 137, Potassium Level 3.6, Chloride Level 94L, Carbon Dioxide Level 36H, Calcium Level 9.6, Total Creatine Kinase 42, Creatine Kinase MB 1.0, Creatine Kinase MB Relative Index 2.38, Glomerular Filtration Rate 46.0L, Lactic Acid Level 1.5, Large Unclassified Cells # 0.1, Large Unclassified Cells % 1.1, Prothromb Time International Ratio 2.75, Prothrombin Time 29.1H, Troponin I < 0.02 07/11/16 06:38: Anion Gap 10, White Blood Count 6.9, Red Blood Count 4.48, Hemoglobin 13.7, Hematocrit 40.8, Mean Corpuscular Volume 91.2, Mean Corpuscular Hemoglobin 30.5 , Mean Corpuscular Hemoglobin Concent 33.5, Red Cell Distribution Width 12.7, Platelet Count 243, Neutrophils (%) (Auto) 75.7H, Lymphocytes (%) (Auto) 18.2L, Monocytes (%) (Auto) 4.7, Eosinophils (%) (Auto) 0.1, Basophils (%) (Auto) 0.2, Neutrophils # (Auto) 5.2, Lymphocytes # (Auto) 1.3L, Monocytes # (Auto) 0.3, Eosinophils # (Auto) 0.0, Basophils # (Auto) 0.0, Blood Urea Nitrogen 23H, Creatinine 1.25H, Sodium Level 137, Potassium Level 4.0, Chloride Level 97L, Carbon Dioxide Level 30, Calcium Level 9.6, Glomerular Filtration Rate 46.9L, Large Unclassified Cells # 0.1, Large Unclassified Cells % 1.2, Prothromb Time International Ratio 2.83, Prothrombin Time 29.8H, Aspartate Amino Transf (AST/ SGOT) 16, Alanine Aminotransferase (ALT/SGPT) 22, Alkaline Phosphatase 103, Total Bilirubin 0.2, Total Protein 7.8, Albumin 3.4, Albumin/Globulin Ratio 0.77L, Magnesium Level 2.4 CBC/BMP Laboratory Tests 07/10/16 11:09 Calcium Level 9.6, Total Creatine Kinase 42, Red Blood Count 4.53, Mean Corpuscular Volume 91.3, Mean Corpuscular Hemoglobin 30.3, Mean Corpuscular Hemoglobin Concent 33.2, Red Cell Distribution Width 12.6, Neutrophils (%) (Auto ) 80.8 H, Lymphocytes (%) (Auto) 15.1 L, Monocytes (%) (Auto) 2.6, Eosinophils ( %) (Auto) 0.2, Basophils (%) (Auto) 0.3, Neutrophils # (Auto) 7.4, Lymphocytes # (Auto) 1.4 L, Monocytes # (Auto) 0.2, Eosinophils # (Auto) 0.0, Basophils # ( Auto) 0.0 07/11/16 06:38 Calcium Level 9.6, Red Blood Count 4.48, Mean Corpuscular Volume 91.2, Mean Corpuscular Hemoglobin 30.5, Mean Corpuscular Hemoglobin Concent 33.5, Red Cell Distribution Width 12.7, Neutrophils (%) (Auto) 75.7 H, Lymphocytes (%) (Auto) 18.2 L, Monocytes (%) (Auto) 4.7, Eosinophils (%) (Auto) 0.1, Basophils (%) ( Auto) 0.2, Neutrophils # (Auto) 5.2, Lymphocytes # (Auto) 1.3 L, Monocytes # ( Auto) 0.3, Eosinophils # (Auto) 0.0, Basophils # (Auto) 0.0, Aspartate Amino Transf (AST/SGOT) 16, Alanine Aminotransferase (ALT/SGPT) 22, Alkaline Phosphatase 103, Total Bilirubin 0.2, Total Protein 7.8, Albumin 3.4 Microbiology Microbiology 07/10/16 Blood Culture, Received Pending 07/10/16 Blood Culture, Received Pending 07/10/16 Influenza Virus Type A Antigen - Final, Complete 07/10/16 Influenza Virus Type B Antigen - Final, Complete EILEEN DONOVAN MD Jul 11, 2016 11:07
[2016-07-11 14:00] VITALS: BP 131/56
[2016-07-11] MEDS: WARFARIN SOD 2 MG TAB PO SCH (16:41)
[2016-07-11] MEDS: SENNA 8.6 MG TAB (SENOKOT) PO SCH (21:55)
[2016-07-11] MEDS: traZODone 50 MG TAB PO SCH (21:55)
[2016-07-11] MEDS: SIMVASTATIN 20 MG TAB PO SCH (21:55)
[2016-07-11 22:00] VITALS: BP 116/68
[2016-07-12] MEDS: IPRATROPIUM 0.5MG/ALBUTEROL 2.5MG INH SOL UD 3ML (DUONEB)(J7620) NEB SCH ×4 (02:03→19:45)
[2016-07-12] MEDS: PERCOCET 5MG/325MG TAB PO PRN ×3 (04:39→17:39)
[2016-07-12 06:00] VITALS: BP 140/79
[2016-07-12 07:04] LABS: BASO % 0.1 % (0.0-1.0); EOS % 0.2 % (0.0-3.0); LARGE UNSTAINED CELL # 0.2 K/mm3 (0.0-0.4); LARGE UNSTAINED CELL % 1.7 % (0.0-4.0); LYMPH % 31.4 % (24.0-44.0); MEAN CORPUSCULAR HEMOGLOBIN 29.6 pg (27.0-33.0); MEAN CORPUSCULAR HGB CONC 32.3 g/dl (32.0-36.5); MEAN CORPUSCULAR VOLUME 91.6 fl (80.0-96.0); MONO # 0.6 K/mm3 (0.0-0.8); MONO % 5.9 % (0.0-5.0); NEUTROPHILS # 5.8 K/mm3 (1.8-7.7); NEUTROPHILS % 60.7 % (36.0-66.0); PLATELET COUNT, AUTOMATED 241 k/mm3 (150-450); RED CELL DISTRIBUTION WIDTH 12.6 % (11.5-14.5); WHITE BLOOD COUNT 9.6 K/mm3 (4.0-10.0)
[2016-07-12 07:25] LABS: ALBUMIN 3.4 GM/DL (3.2-5.2); ALBUMIN/GLOBULIN RATIO 0.83 (1.00-1.93); BILIRUBIN,TOTAL 0.2 MG/DL (0.2-1.0); CALCIUM LEVEL 9.5 MG/DL (8.5-10.1); CREATININE FOR GFR 1.29 MG/DL (0.55-1.02); GLOMERULAR FILTRATION RATE 45.2 (>51); MAGNESIUM LEVEL 2.3 MG/DL (1.8-2.4); POTASSIUM SERUM 3.9 MEQ/L (3.5-5.1); TOTAL PROTEIN 7.5 GM/DL (6.4-8.2)
[2016-07-12 07:29] LABS: INR 3.39
[2016-07-12] MEDS: predniSONE 10 MG TAB PO SCH (08:08)
[2016-07-12] MEDS: ALPRAZolam 0.5 MG TAB PO SCH ×2 (08:08→20:28)
[2016-07-12] MEDS: OMEPRAZOLE 20 MG CAP PO SCH (08:08)
[2016-07-12] MEDS: VITAMIN D 1,000 INTERNATIONAL UNITS TABLET PO SCH (08:08)
[2016-07-12] MEDS: ASPIRIN 81 MG CHEW TABLET PO SCH (08:08)
[2016-07-12] MEDS: POTASSIUM CHLORIDE 10 MEQ SR TABLET PO SCH (08:08)
[2016-07-12 08:09] VITALS: BP 136/81
[2016-07-12] MEDS: FUROSEMIDE 40 MG TAB PO SCH ×2 (08:09→17:38)
[2016-07-12] MEDS: SPIRONOLACTONE 25 MG TAB PO SCH ×2 (08:09→17:38)
[2016-07-12] MEDS: BUDESONIDE 0.5 MG/2 ML INHALATION SUSPENSION INH SCH ×2 (08:37→19:45)
--- NOTE | 2016-07-12 08:49 | IPNPDOC ---
Assessment/Plan Date Seen The patient was seen on 07/12/16. Problems Problems: (1) COPD exacerbation Onset Date: 01/11/2014 Status: Acute Problem Text: will continue with nebulizations and prednisone. will add budesonide nebulizations. (2) Chronic respiratory failure with hypoxia and hypercapnia Status: Acute Problem Text: acute on chronic respiratory failure now improving (3) Diastolic CHF, chronic Status: Chronic Response to Treatment: Stable Problem Text: continue lasix and spironolactone. (4) DVT (deep venous thrombosis) Status: Chronic Problem Text: continue coumadin (5) HTN (hypertension) Status: Chronic (6) Morbid obesity with BMI of 45.0-49.9, adult Status: Chronic (7) GERD (gastroesophageal reflux disease) Status: Chronic (8) Anxiety Status: Chronic (9) Lung nodule Status: Chronic (10) Hypercholesteremia Status: Chronic Plan / VTE VTE Prophylaxis Ordered?: Yes Subjective Review of Systems CC/HPI The patient is a 56-year-old female admitted with a reason for visit of Copd Exacerbation. Events since last encounter continues to have severe bouts of coughing , still feels tight and sob not back to baseline yet, no fever or chills, no abdominal pain , nausea or vomiting. Objective Physical Examination General Exam: Positive: Alert, No Acute Distress Eye Exam: Positive: Conjunctiva & lids normal, EOMI, PERRLA, Negative: Sclera icteric ENT Exam: Positive: Atraumatic, Mucous membr. moist/pink, Pharynx Normal Neck Exam: Positive: Supple, Negative: JVD, thyromegaly Chest Exam: Positive: Diminished, Rhonchi, Wheezing Heart Exam: Positive: Normal S1, Normal S2, Rate Normal, Regular Rhythm, Negative: Murmurs, Rubs Abdomen Exam: Positive: Normal bowel sounds, Soft, Negative: Hepatospenomegaly, Tenderness Extremity Exam: Positive: Normal pulses, Negative: Clubbing, Cyanosis, Edema Vital Signs/I&O Vital Signs Date Time Temp Pulse Resp B/P Pulse Ox O2 Delivery O2 Flow Rate FiO2 07/12/16 08:09 89 136/81 07/12/16 06:00 97.0 20 98 Nasal Cannula 2.0 I&O- Last 24 Hours up to 6 AM 07/12/16 06:00 Intake Total 2200 ml Output Total 1450 ml Balance 750 ml Laboratory Data Labs 24H Laboratory Tests 2 07/12/16 06:47: Blood Urea Nitrogen 25H, Creatinine 1.29H, Sodium Level 136, Potassium Level 3.9 , Chloride Level 95L, Carbon Dioxide Level 36H, Calcium Level 9.5, Aspartate Amino Transf (AST/SGOT) 18, Alanine Aminotransferase (ALT/SGPT) 22, Alkaline Phosphatase 94, Total Bilirubin 0.2, Total Protein 7.5, Albumin 3.4, Albumin/ Globulin Ratio 0.83L, Anion Gap 5L, White Blood Count 9.6, Red Blood Count 4.48 , Hemoglobin 13.3, Hematocrit 41.1, Mean Corpuscular Volume 91.6, Mean Corpuscular Hemoglobin 29.6, Mean Corpuscular Hemoglobin Concent 32.3, Red Cell Distribution Width 12.6, Platelet Count 241, Neutrophils (%) (Auto) 60.7, Lymphocytes (%) (Auto) 31.4, Monocytes (%) (Auto) 5.9H, Eosinophils (%) (Auto) 0.2, Basophils (%) (Auto) 0.1, Neutrophils # (Auto) 5.8, Lymphocytes # (Auto) 3.0, Monocytes # (Auto) 0.6, Eosinophils # (Auto) 0.0, Basophils # (Auto) 0.0, Glomerular Filtration Rate 45.2L, Large Unclassified Cells # 0.2, Large Unclassified Cells % 1.7, Magnesium Level 2.3, Prothromb Time International Ratio 3.39, Prothrombin Time 34.3H CBC/BMP Laboratory Tests 07/12/16 06:47 Calcium Level 9.5, Aspartate Amino Transf (AST/SGOT) 18, Alanine Aminotransferase (ALT/SGPT) 22, Alkaline Phosphatase 94, Total Bilirubin 0.2, Total Protein 7.5, Albumin 3.4, Red Blood Count 4.48, Mean Corpuscular Volume 91.6, Mean Corpuscular Hemoglobin 29.6, Mean Corpuscular Hemoglobin Concent 32.3 , Red Cell Distribution Width 12.6, Neutrophils (%) (Auto) 60.7, Lymphocytes (% ) (Auto) 31.4, Monocytes (%) (Auto) 5.9 H, Eosinophils (%) (Auto) 0.2, Basophils (%) (Auto) 0.1, Neutrophils # (Auto) 5.8, Lymphocytes # (Auto) 3.0, Monocytes # (Auto) 0.6, Eosinophils # (Auto) 0.0, Basophils # (Auto) 0.0 Microbiology Microbiology 07/10/16 Blood Culture - Preliminary, Resulted No growth after 24 hours . All specim... 07/10/16 Blood Culture - Preliminary, Resulted No growth after 24 hours . All specim... 07/10/16 Influenza Virus Type A Antigen - Final, Complete 07/10/16 Influenza Virus Type B Antigen - Final, Complete EILEEN DONOVAN MD Jul 12, 2016 08:49
[2016-07-12] MEDS: FORMOTEROL FUMARATE 20 MCG/2 ML INHALATION SOLUTION (PERFOROMIST) INH SCH ×2 (10:06→19:45)
[2016-07-12] MEDS: guaiFENesin ER 600 MG TAB PO SCH ×2 (10:30→20:28)
[2016-07-12 14:00] VITALS: BP 116/68
[2016-07-12] MEDS: IPRATROPIUM 0.5MG/ALBUTEROL 2.5MG INH SOL UD 3ML (DUONEB)(J7620) NEB PRN ×2 (14:26→17:06)
--- NOTE | 2016-07-12 15:35 | EDDOCDS ---
Physician Documentation [facility] Name: Katrin Alfred Age: 56 yrs Sex: Female : 1960 Arrival Date: 07/10/2016 Time: 09:57 Bed 15 Private MD: Disposition: 07/10 12:11 Critical Care:. ml Disposition: 07/10/16 12:10 Hospitalization ordered by Armida Crane for Inpatient Admission. Preliminary diagnosis are Chronic obstructive pulmonary disease with (acute) exacerbation, Chronic obstructive pulmonary disease with acute lower respiratory infection, Dyspnea. - Bed requested for 4 [place]. - Status is Inpatient Admission. ms18 - Condition is Stable. - Problem is new. - Symptoms are unchanged. Historical: - Allergies: Augmentin; Cephalexin; Ciprofloxacin; CLAVULANIC ACID; Erythromycin; iopamidol; Methylprednisolone; Morphine; moxifloxacin; PENICILLINS; QUINOLONES; SULFA (SULFONAMIDES); Doxycycline; - Home Meds: 1. Albuterol Inhl as needed 2. aspirin 81 mg Oral tab 1 tab once daily 3. benzonatate 100 mg oral cap 1 cap as needed 4. bisacodyl 5 mg Oral tab 2 tabs once daily 5. budesonide oral once daily 6. ferrous sulfate 325 mg (65 mg iron) Oral TbEC 7. fluoxetine 40 mg Oral cap 1 cap once daily 8. furosemide 40 mg Oral tab 1 tab 2 times per day 9. lamotrigine 100 mg Oral tab 1 tab once daily 10. loratadine 10 mg Oral TbDL 1 tab once daily 11. lorazepam 0.5 mg Oral tab as needed 12. Miralax 17 gram/dose Oral powd once daily 13. O2 2L NC 14. omeprazole 40 mg Oral cpDR 1 cap once daily 15. ondansetron HCl 4 mg Oral tab every 6 hours 16. Percocet 5-325 mg Oral tab as needed 17. simethicone 40 mg/0.6 mL Oral drps as needed 18. simvastatin 20 mg Oral tab 1 tab once daily 19. Spiriva with HandiHaler 18 mcg Inhl CpDv 1 cap once daily 20. spironolactone 25 mg Oral tab once daily 21. trazodone 150 mg Oral tab nightly 22. warfarin 2.5 mg Oral tab 1 tab once daily 23. doxycycline hyclate 100 mg Oral cap 1 cap every 12 hours 24. prednisone 20 mg oral tab taper ing dose - started 07/04 - PMHx: Anxiety; Asthma; CHF; COPD; Depression; DVT; GERD; Hypercholesterolemia; Hypertension; - PSHx: Bladder suspension; Cataract Surgery- Bilateral; Tonsillectomy; Hysterectomy; - Social history: Smoking status: Patient states former smoker of tobacco. No barriers to communication noted, The patient speaks fluent Chinese. - Family history: Not pertinent. - : The pt / caregiver states he / she is on anticoagulants: coumadin. Home medication list is obtained from [employer] import data. - Exposure Risk Screening:: None identified. Vital Signs: 10:14 BP 115 / 79; Pulse 99; Resp 22; Temp 98.6(TE); Pulse Ox 93% on 2 lpm NC; Pain 0/10; kcs 10:14 Weight 105.69 kg / 233.01 lbs (R); Height 67 in. (170.18 cm) (R); kcs 10:40 BP 132 / 73 (auto/); js13 10:40 Pulse 72 MON; Resp 20; Pulse Ox 94% on 2 lpm NC; js13 11:40 BP 131 / 90 (auto/); ms18 11:43 Pulse 74 MON; Pulse Ox 96% ; ms18 13:33 Pulse 84 MON; Pulse Ox 95% ; ms18 13:40 BP 122 / 91 (auto/); ms18 14:09 BP 161 / 56; Pulse 100; Resp 18; Temp 98; Pulse Ox 97% on 2 lpm NC; Pain 0/10; ms18 10:14 Body Mass Index 36.49 (105.69 kg, 170.18 cm) kcs MDM: 10:16 IV Saline Lock ordered. ml 10:16 Skin Drier/Pulse Ox/q 15 min VS ordered. ml 10:16 Rhythm Strip to chart ordered. ml 10:16 Call Respiratory ordered. ml 10:16 -Blood Culture (Adults Only), peripheral from different site, or from device/port/PICC ml etc. if present ordered. 10:17 ECG WITH READING ER PHYS+CARDIAG ordered. EDMS 10:18 CBC with Diff Ordered. EDMS 10:18 MED Profile Ordered. EDMS 10:18 CIP Ordered. EDMS 10:18 Troponin Ordered. EDMS 10:18 BNP Ordered. EDMS 10:18 -Arterial Blood Gas Ordered. EDMS 10:18 Lactic Acid (Cochran tube on ice) Ordered. EDMS 10:18 PT/INR Ordered. EDMS 10:18 PTT Ordered. EDMS 10:18 -Blood Culture Ordered. EDMS 10:18 Chest, 1 View Ordered. EDMS 10:19 -Blood Culture (Adults Only), peripheral from different site, or from device/port/PICC deg etc. if present complete. 10:20 Albuterol 5 mg Nebulizer once ordered. ml 10:20 Albuterol-Ipratropium 3 ml Inhalation once ordered. ml 10:20 Call Respiratory ordered. ml 10:20 Solu-MEDROL 125 mg IVP once ordered. ml 10:21 BLOOD CULTURES Ordered. EDMS 10:21 Call Respiratory complete. ml6 10:22 Call Respiratory complete. deg 11:15 BED REQUEST+ADM ordered. EDMS 11:26 Obtain sample by nasopharyngeal swab ordered. ml 11:27 -Influenza A&B Rapid Antigen - Nose Ordered. EDMS 11:57 [facility] Payment Agreement was scanned into [employer] and attached to record. lg 11:57 Financial registration complete. lg 12:10 CBC with Diff Reviewed. ml 12:10 MED Profile Reviewed. ml 12:10 -Arterial Blood Gas Reviewed. ml 12:10 PT/INR Reviewed. ml 12:10 CIP Reviewed. ml 12:10 Troponin Reviewed. ml 12:10 Lactic Acid (Cochran tube on ice) Reviewed. ml 12:10 PTT Reviewed. ml 12:10 Chest, 1 View Reviewed. ml 12:34 BNP Reviewed. ml 12:34 -Influenza A&B Rapid Antigen - Nose Reviewed. ml 12:48 Admission / Observation Status ordered. EDMS 12:48 2 GRAM SODIUM DIET ordered. EDMS 07/11 10:00 T-Sheet-- Draft Copy was scanned into [employer] and attached to record. gb 10:00 ECG/EKG was scanned into [employer] and attached to record. gb 10:00 Radiology Report was scanned into [employer] and attached to record. gb Administered Medications: 07/10 10:45 Drug: Albuterol 5 mg [albuterol sulfate 2.5 mg/0.5 mL solution for nebulization (1 mL)] cs15 Route: Nebulizer; 14:14 Follow up: Response: No Adverse Reaction ms18 10:45 Drug: Albuterol-Ipratropium 3 ml [ipratropium-albuterol 0.5 mg-3 mg(2.5 mg base)/3 mL cs15 nebulization soln (3 mL)] Route: Inhalation; 11:14 Not Given (Patient Refused): Solu-MEDROL 125 mg IVP once js13 Critical Care Time: 12:11 Critical care time: Bedside Care: 90 minutes, Consultation: 10 minutes. Total time: 100 ml minutes Signatures: Dispatcher [employer] EDMS Burton Chopra MD MD ml Teresa Urbina, RN RN kcs Rosa Lan, Search Analyst Unit deg Hiral, Ankita, Reg Reg gb Norma Haque, Reg Reg lg Amaury Brasher, RN RN ml6 Ashwini CastellanosRN RN js13 Lilly CruzRN RN ms18 Kishore Sylvester, RN RN [facility] Ant Gomez RT cs15 The chart was reviewed and I authenticate all verbal orders and agree with the evaluation and treatment provided.Attachments: 11:57 [facility] Payment Agreement 07/11 10:00 T-Sheet-- Draft Copy gb 10:00 ECG/EKG Chart Complete MTDD
--- NOTE | 2016-07-12 15:35 | EDDOCDS ---
Nurse's Notes [facility] Name: Katrin Alfred Age: 56 yrs Sex: Female : 1960 Arrival Date: 07/10/2016 Time: 09:57 Bed 15 Private MD: Diagnosis: Chronic obstructive pulmonary disease with (acute) exacerbation;Chronic obstructive pulmonary disease with acute lower respiratory infection;Dyspnea Presentation: 07/10 10:01 Presenting complaint: Patient states: here for shortness of breath - seen here a few kcs days ago for the same. Adult Sepsis Screening: The patient does not have new or worsening altered mentation. Patient's respiratory rate is less than 22. Systolic blood pressure is greater than 100. Patient has a qSOFA score of 0- Negative Sepsis Screen. Suicide/Homicide risk assessment- the patient denies having any suicidal and/or homicidal ideations and does not present with any other emotional, behavioral or mental health complaints. Status: Patient is not a veterans service officer or dependent. Transition of care: patient was not received from another setting of care. 10:01 Acuity: TAMIA Level 3 kcs 10:01 Method Of Arrival: Ambulance kcs Triage Assessment: 10:14 General: Appears comfortable, well developed, well nourished, well groomed, Behavior is kcs cooperative, pleasant. Pain: Denies pain. HIV screening NA for this visit Offered previously. The patient is triaged at the bedside. See Assessment in Nurses Notes section of ED record. Neurological: Level of Consciousness is awake, alert. Respiratory: Airway is patent Respiratory effort is even, labored, Respiratory pattern is regular, symmetrical, harsh, congested cough. Derm: Skin is intact, is healthy with good turgor, Skin is dry, Skin is normal. 14:29 Respiratory: Onset: The symptoms/episode began/occurred . ms18 Historical: - Allergies: Augmentin; Cephalexin; Ciprofloxacin; CLAVULANIC ACID; Erythromycin; iopamidol; Methylprednisolone; Morphine; moxifloxacin; PENICILLINS; QUINOLONES; SULFA (SULFONAMIDES); Doxycycline; - Home Meds: 1. Albuterol Inhl as needed 2. aspirin 81 mg Oral tab 1 tab once daily 3. benzonatate 100 mg oral cap 1 cap as needed 4. bisacodyl 5 mg Oral tab 2 tabs once daily 5. budesonide oral once daily 6. ferrous sulfate 325 mg (65 mg iron) Oral TbEC 7. fluoxetine 40 mg Oral cap 1 cap once daily 8. furosemide 40 mg Oral tab 1 tab 2 times per day 9. lamotrigine 100 mg Oral tab 1 tab once daily 10. loratadine 10 mg Oral TbDL 1 tab once daily 11. lorazepam 0.5 mg Oral tab as needed 12. Miralax 17 gram/dose Oral powd once daily 13. O2 2L NC 14. omeprazole 40 mg Oral cpDR 1 cap once daily 15. ondansetron HCl 4 mg Oral tab every 6 hours 16. Percocet 5-325 mg Oral tab as needed 17. simethicone 40 mg/0.6 mL Oral drps as needed 18. simvastatin 20 mg Oral tab 1 tab once daily 19. Spiriva with HandiHaler 18 mcg Inhl CpDv 1 cap once daily 20. spironolactone 25 mg Oral tab once daily 21. trazodone 150 mg Oral tab nightly 22. warfarin 2.5 mg Oral tab 1 tab once daily 23. doxycycline hyclate 100 mg Oral cap 1 cap every 12 hours 24. prednisone 20 mg oral tab taper ing dose - started 07/04 - PMHx: Anxiety; Asthma; CHF; COPD; Depression; DVT; GERD; Hypercholesterolemia; Hypertension; - PSHx: Bladder suspension; Cataract Surgery- Bilateral; Tonsillectomy; Hysterectomy; - Social history: Smoking status: Patient states former smoker of tobacco. No barriers to communication noted, The patient speaks fluent Irish. - Family history: Not pertinent. - : The pt / caregiver states he / she is on anticoagulants: coumadin. Home medication list is obtained from [employer] import data. - Exposure Risk Screening:: None identified. Screenin:43 Screening information is obtained from the patient. Fall risk: At risk due to age. ms18 Assistance ADL's: requires no assistance with activities of daily living. Abuse/DV Screen: The patient / caregiver reports he/she is: not in a situation that causes fear, pain or injury. Nutritional screening: No deficits noted. Advance Directives: There is no living will. home support is adequate. Assessment: 10:44 General: Appears in no apparent distress, Behavior is appropriate for age, cooperative. js13 Pain: Denies pain. Neurological: Level of Consciousness is awake, alert. Cardiovascular: Rhythm is sinus rhythm Chest pain is denied. Respiratory: Airway is patent Respiratory effort is even, unlabored, Respiratory pattern is regular, symmetrical, Breath sounds are diminished Breath sounds with wheezes. Respiratory: Reports cough that is non-productive, persistent. Derm: Skin is pink, warm & dry. 11:47 General: Appears in no apparent distress, comfortable, obese, Behavior is appropriate ms18 for age, cooperative, pleasant. Pain: Denies pain. Neurological: Level of Consciousness is awake, alert, obeys commands, Oriented to person, place, time. Respiratory: Airway is patent Respiratory effort is even, unlabored, Respiratory pattern is regular, symmetrical. Derm: Skin is pink, warm & dry. 12:54 General: Appears in no apparent distress, comfortable, Behavior is appropriate for age, ms18 cooperative. General: Pt in no acute distress. Will continue to monitor pt. Neurological: No deficits noted. Respiratory: Airway is patent Respiratory effort is even, unlabored. Derm: Skin is pink, warm & dry. 13:48 General: Appears in no apparent distress, comfortable, Behavior is appropriate for age, ms18 cooperative. Pain: Denies pain. Neurological: No deficits noted. Respiratory: Airway is patent Respiratory effort is even, unlabored, Respiratory pattern is regular, symmetrical. Derm: Skin is pink, warm & dry. 14:27 General: Appears in no apparent distress, comfortable, Behavior is appropriate for age, ms18 cooperative. Pain: Denies pain. Neurological: No deficits noted. Respiratory: Airway is patent Respiratory effort is even, unlabored, Respiratory pattern is regular, symmetrical. GI: Abdomen is non- distended. Derm: Skin is pink, warm & dry. Vital Signs: 10:14 BP 115 / 79; Pulse 99; Resp 22; Temp 98.6(TE); Pulse Ox 93% on 2 lpm NC; Pain 0/10; kcs 10:14 Weight 105.69 kg (R); Height 67 in. (170.18 cm) (R); kcs 10:40 BP 132 / 73 (auto/); js13 10:40 Pulse 72 MON; Resp 20; Pulse Ox 94% on 2 lpm NC; js13 11:40 BP 131 / 90 (auto/); ms18 11:43 Pulse 74 MON; Pulse Ox 96% ; ms18 13:33 Pulse 84 MON; Pulse Ox 95% ; ms18 13:40 BP 122 / 91 (auto/); ms18 14:09 BP 161 / 56; Pulse 100; Resp 18; Temp 98; Pulse Ox 97% on 2 lpm NC; Pain 0/10; ms18 10:14 Body Mass Index 36.49 (105.69 kg, 170.18 cm) [facility] Vitals: 10:14 Log In Time N/A - ambulance arrival. [facility] ED Course: 09:58 Patient visited by Rosa Lan, Eddy Current Inspector. deg 09:58 Patient moved to Waiting deg 09:58 Patient moved to 15 deg 10:03 Triage Initiated kcs 10:10 Burton Chopra MD is Attending Physician. ml 10:10 Patient visited by Burton Chopra MD. ml 10:28 EKG done. (by ED staff). Reviewed by Burton Chopra MD. ct3 10:33 Patient visited by Radha Melara PCA. ct3 10:47 Chest, 1 View Returned. EDMS 10:56 Patient visited by Best Morrison PCA. jlf 11:00 -Arterial Blood Gas Sent. cs15 11:39 Patient visited by Best Morrison PCA. jlf 11:43 The patient / caregiver is instructed regarding the plan of care and ED course. Patient ms18 has correct armband on for positive identification. Placed in gown. tire man on. Pulse ox on. NIBP on. Property :Personal belongings accompany Pt. 11:43 Inserted saline lock: 20 gauge in right forearm The patient tolerated the procedure ms18 well. Pt was a hard stick and was stuck several times by EMS and ED staff. 11:47 Patient visited by Lilly Cruz RN. ms18 11:56 Patient name changed from Katrin\S\Ema\S\Crosbie\S\ to Katrin\S\M\S\Crosbie. EDMS 11:57 [facility] Payment Agreement was scanned into [employer] and attached to record. lg 12:10 Armida Crane is Hospitalizing Provider. ml 12:59 Lilly Cruz,RN is Primary Nurse. ms18 13:48 Patient visited by Lilly Cruz RN. ms18 14:07 Chest, 1 View Returned. EDMS 14:27 Patient visited by Lilly Cruz RN. ms18 14:27 No procedures done that require assistance. ms18 01/24 10:00 T-Sheet-- Draft Copy was scanned into [employer] and attached to record. gb 10:00 ECG/EKG was scanned into [employer] and attached to record. gb 10:00 Radiology Report was scanned into [employer] and attached to record. gb Administered Medications: 07/10 10:45 Drug: Albuterol 5 mg [albuterol sulfate 2.5 mg/0.5 mL solution for nebulization (1 mL)] cs15 Route: Nebulizer; 14:14 Follow up: Response: No Adverse Reaction ms18 10:45 Drug: Albuterol-Ipratropium 3 ml [ipratropium-albuterol 0.5 mg-3 mg(2.5 mg base)/3 mL cs15 nebulization soln (3 mL)] Route: Inhalation; 11:14 Not Given (Patient Refused): Solu-MEDROL 125 mg IVP once js13 RT: 11:00 ABG's drawn from left radial artery allens test done and positive pressure held for 5 cs15 minutes no bleeding noted pressure bandage applied specimen sent pt. tolerated well. Initial Med Neb Given as ordered. O2 via nasal cannula \T\ 2L/min. Respiratory: Respiratory effort is labored, Respiratory pattern is regular Breath sounds with crackles bilaterally. Breath sounds with wheezes bilaterally. at expiration Order Results: Lab Order: CBC with Diff; SPEC'M 07/10/16 11:09 Test: WHITE BLOOD COUNT; Value: 9.1; Range: 4.0-10.0; Units: K/mm3; Status: F Test: RED BLOOD COUNT; Value: 4.53; Range: 4.00-5.40; Units: M/mm3; Status: F Test: HEMOGLOBIN; Value: 13.7; Range: 12.0-16.0; Units: g/dl; Status: F Test: HEMATOCRIT; Value: 41.4; Range: 36.0-47.0; Units: %; Status: F Test: MEAN CORPUSCULAR VOLUME; Value: 91.3; Range: 80.0-96.0; Units: fl; Status: F Test: MEAN CORPUSCULAR HEMOGLOBIN; Value: 30.3; Range: 27.0-33.0; Units: pg; Status: F Test: MEAN CORPUSCULAR HGB CONC; Value: 33.2; Range: 32.0-36.5; Units: g/dl; Status: F Test: RED CELL DISTRIBUTION WIDTH; Value: 12.6; Range: 11.5-14.5; Units: %; Status: F Test: PLATELET COUNT, AUTOMATED; Value: 227; Range: 150-450; Units: k/mm3; Status: F Test: NEUTROPHILS %; Value: 80.8; Range: 36.0-66.0; Abnormal: Above high normal; Units: %; Status: F Test: LYMPH %; Value: 15.1; Range: 24.0-44.0; Abnormal: Below low normal; Units: %; Status: F Test: MONO %; Value: 2.6; Range: 0.0-5.0; Units: %; Status: F Test: EOS %; Value: 0.2; Range: 0.0-3.0; Units: %; Status: F Test: BASO %; Value: 0.3; Range: 0.0-1.0; Units: %; Status: F Test: LARGE UNSTAINED CELL %; Value: 1.1; Range: 0.0-4.0; Units: %; Status: F Test: NEUTROPHILS #; Value: 7.4; Range: 1.8-7.7; Units: K/mm3; Status: F Test: LYMPH #; Value: 1.4; Range: 1.5-4.5; Abnormal: Below low normal; Units: K/mm3; Status: F Test: MONO #; Value: 0.2; Range: 0.0-0.8; Units: K/mm3; Status: F Test: EOS #; Value: 0.0; Range: 0.0-0.50; Units: K/mm3; Status: F Test: BASO #; Value: 0.0; Range: 0.0-0.2; Units: K/mm3; Status: F Test: LARGE UNSTAINED CELL #; Value: 0.1; Range: 0.0-0.4; Units: K/mm3; Status: F Lab Order: MED Profile; SPEC'M 07/10/16 11:09 Test: GLUCOSE, FASTING; Value: 104; Range: 70-105; Units: MG/DL; Status: F Test: BLOOD UREA NITROGEN; Value: 20; Range: 7-18; Abnormal: Above high normal; Units: MG/DL; Status: F Test: CREATININE FOR GFR; Value: 1.27; Range: 0.55-1.02; Abnormal: Above high normal; Units: MG/DL; Status: F Test: GLOMERULAR FILTRATION RATE; Value: 46.0; Range: >51; Abnormal: Below low normal; Status: F Test: SODIUM LEVEL; Value: 137; Range: 136-145; Units: MEQ/L; Status: F Test: POTASSIUM SERUM; Value: 3.6; Range: 3.5-5.1; Units: MEQ/L; Status: F Test: CHLORIDE LEVEL; Value: 94; Range: 98-107; Abnormal: Below low normal; Units: MEQ/L; Status: F Test: CARBON DIOXIDE LEVEL; Value: 36; Range: 21-32; Abnormal: Above high normal; Units: MEQ/L; Status: F Test: ANION GAP; Value: 7; Range: 8-16; Abnormal: Below low normal; Units: MEQ/L; Status: F Test: CALCIUM LEVEL; Value: 9.6; Range: 8.5-10.1; Units: MG/DL; Status: F Test Note: ; Units are mL/min/1.73 m2 Chronic Kidney Disease Staging per NKF: Stage I & II GFR >=60 Normal to Mildly Decreased Stage III GFR 30-59 Moderately Decreased Stage IV GFR 15-29 Severely Decreased Stage V GFR <15 Very Little GFR Left ESRD GFR <15 on TELEVISION CABLE INSTALLER Lab Order: CIP; SPEC'M 07/10/16 11:09 Test: CPK CREATINE PHOSPHOKINASE; Value: 42; Range: 26-192; Units: U/L; Status: F Test: CK-MB VALUE MASS; Value: 1.0; Range: 0.0-3.6; Units: NG/ML; Status: F Test: MB/CK RELATIVE INDEX; Value: 2.38; Range: < OR =4; Status: F Test Note: ; DIAGNOSIS CRITERIA MMB ng/ml Relative Index (RI) NON-AMI < or = 5 N/A [place]AN ZONE > 5 < or = 4 AMI > 5 > 4 Lab Order: Troponin; SPEC'M 07/10/16 11:09 Test: TROPONIN I; Value: < 0.02; Range: < 0.10; Units: NG/ML; Status: F Test Note: ; Troponin I Reference Interval for Siemens [place] LOCI: 99th Percentile= 0.00-0.045 ng/ml Risk Stratification: <= 0.10 ng/ml Decreased Risk for Adverse Clinical Events. 0.10-1.50 ng/ml Increased Risk for Adverse Clinical Events. Evaluation of additional criterion and/or repeat testing in 2-6 hours is suggested to rule out myocardial damage. >= 1.50 ng/ml Indicative of Myocardial Injury. Lab Order: BNP; SPEC'M 07/10/16 11:09 Test: BRAIN NATRIURETIC PEPTIDE; Value: 10.3; Range: <100; Units: PG/ML; Status: F Lab Order: -Arterial Blood Gas; [facility]' 07/10/16 10:58 Test: ABG pH (ARTERIAL); Value: 7.427; Range: 7.350-7.450; Units: UNITS; Status: F Test: ABG PARTIAL PRESSURE CO2; Value: 57.3; Range: 35.0-45.0; Abnormal: Above high normal; Units: mmHg; Status: F Test: ABG PARTIAL PRESSURE O2; Value: 234.3; Range: 75.0-100.0; Abnormal: Above high normal; Units: mmHg; Status: F Test: ABG TOTAL CO2; Value: 38.7; Range: 22.0-29.0; Abnormal: Above high normal; Units: MEQ/L; Status: F Test: ABG HCO3; Value: 36.9; Range: 22.0-26.0; Abnormal: Above high normal; Units: MEQ/L; Status: F Test: ABG BASE EXCESS; Value: 10.3; Range: -2.0-2.0; Abnormal: Above high normal; Status: F Test: ABG STANDARD HCO3; Value: 34.1; Range: 22.0-26.0; Abnormal: Above high normal; Units: MEQ/L; Status: F Test: ABG O2 SATURATION; Value: 99.8; Range: 95.0-99.0; Abnormal: Above high normal; Units: %; Status: F Test: ABG DEVICE; Value: NASAL PHANI; Status: F Lab Order: Lactic Acid (Cochran tube on ice); SPEC'M 07/10/16 11:09 Test: LACTIC ACID LEVEL, LACTATE; Value: 1.5; Range: 0.4-2.0; Units: MMOL/L; Status: F Lab Order: PT/INR; SPEC'M 07/10/16 11:09 Test: PROTHROMBIN TIME; Value: 29.1; Range: 12.3-14.5; Abnormal: Above high normal; Units: SECONDS; Status: F Test: INR; Value: 2.75; Status: F Test Note: ; THERAPUTIC HUMAN INR VALUES INDICATIONS NORMAL RANGES PROPHYLAXIS/TREATMENT OF: VENOUS THROMBOSIS 2.0-3.0 PULMONARY EMBOLISM 2.0-3.0 PREVENTION OF SYSTEMIC EMBOLISM FROM: TISSUE HEART VALVES 2.0-3.0 ACUTE MYOCARDIAL INFARCTION 2.0-3.0 VALVULAR HEART DISEASE 2.0-3.0 ATRIAL FIBRILLATION 2.0-3.0 MECHANICAL VALVES(HIGH RISK) 2.5-3.5 RECURRENT MYOCARDIAL INFARCTION 2.5-3.5 Lab Order: PTT; SPEC'M 07/10/16 11:09 Test: PARTIAL THROMBOPLASTIN TIME; Value: 36.8; Range: 26.6-37.1; Units: SECONDS; Status: F Lab Order: -Influenza A&B Rapid Antigen - Nose; SPEC'M 07/10/16 11:56 Test: INFLUENZA A RAPID SCR by ICA; Value: INFLUENZA A RESULTS NEGATIVE; Status: F Test: INFLUENZA A RAPID SCR by ICA; Value: Comments:; Status: F Test: INFLUENZA B RAPID SCR by ICA; Value: INFLUENZA B RESULTS NEGATIVE; Status: F Test Note: ; The Influenza test is a direct rapid immunoassay for the qualitative detection of Influenza viral antigen. Cell culture (Viral Culture) testing should be considered to confirm NEGATIVE results and to assist in detecting other viruses that can provide similar clinical symptoms. Please contact the lab within 24 hours ([phone]) if confirmatory testing is desired. Radiology Order: Chest, 1 View Test: Chest, 1 View REASON FOR EXAMINATION: sob; Portable chest x-ray: Sitting AP view.; ; History: Shortness of breath.; ; Comparison chest x-ray is from July 04, 2016.; ; Findings: The left hemidiaphragm is slightly elevated. Heart is not enlarged.; The lungs are well inflated and clear. Pulmonary vasculature is not increased.; ; Impression:; ; No active disease.; ; ; Signed by; Braden Garrett MD 07/10/2016 01:41 P; Outcome: 12:10 Decision to Hospitalize by Provider. 14:27 Discharge Assessment: Patient awake, alert and oriented x 3. No cognitive and/or ms18 functional deficits noted. Patient verbalized understanding of disposition instructions. patient administered narcotics - no. The following High Risk Discharge criteria are identified: None. Admitted to Med/Surg accompanied by tech, via stretcher, with oxygen, with chart. Condition: good Condition: stable. No special radiology studies were completed. 14:34 Patient left the ED. ms18 Signatures: Dispatcher [employer] EDMS Burton Chopra MD MD ml Sleeman, Kacey, RN RN kcs Rosa Lan, Eddy Current Inspector Unit deg Hiral, Ankita, Reg Reg gb Ganter, LoriLee, Reg Reg lg Melara, Radha, TEACHER TUTOR TEACHER TUTOR ct3 Ashwini Castellanos,RN RN js13 Best Morrison, TEACHER TUTOR TEACHER TUTOR jlf Lilly Cruz,BRYNN RN ms18 Ant Gomez,RT RT cs15 Chart Complete MTDD
--- NOTE | 2016-07-12 15:35 | EDDOCDS ---
Physician Documentation [facility] Name: Katrin Alfred Age: 56 yrs Sex: Female : 1960 Arrival Date: 07/10/2016 Time: 09:57 Bed 15 Private MD: Disposition: 07/10 12:11 Critical Care:. ml Disposition: 07/10/16 12:10 Hospitalization ordered by Armida Crane for Inpatient Admission. Preliminary diagnosis are Chronic obstructive pulmonary disease with (acute) exacerbation, Chronic obstructive pulmonary disease with acute lower respiratory infection, Dyspnea. - Bed requested for 4 Flynn. - Status is Inpatient Admission. ms18 - Condition is Stable. - Problem is new. - Symptoms are unchanged. Historical: - Allergies: Augmentin; Cephalexin; Ciprofloxacin; CLAVULANIC ACID; Erythromycin; iopamidol; Methylprednisolone; Morphine; moxifloxacin; PENICILLINS; QUINOLONES; SULFA (SULFONAMIDES); Doxycycline; - Home Meds: 1. Albuterol Inhl as needed 2. aspirin 81 mg Oral tab 1 tab once daily 3. benzonatate 100 mg oral cap 1 cap as needed 4. bisacodyl 5 mg Oral tab 2 tabs once daily 5. budesonide oral once daily 6. ferrous sulfate 325 mg (65 mg iron) Oral TbEC 7. fluoxetine 40 mg Oral cap 1 cap once daily 8. furosemide 40 mg Oral tab 1 tab 2 times per day 9. lamotrigine 100 mg Oral tab 1 tab once daily 10. loratadine 10 mg Oral TbDL 1 tab once daily 11. lorazepam 0.5 mg Oral tab as needed 12. Miralax 17 gram/dose Oral powd once daily 13. O2 2L NC 14. omeprazole 40 mg Oral cpDR 1 cap once daily 15. ondansetron HCl 4 mg Oral tab every 6 hours 16. Percocet 5-325 mg Oral tab as needed 17. simethicone 40 mg/0.6 mL Oral drps as needed 18. simvastatin 20 mg Oral tab 1 tab once daily 19. Spiriva with HandiHaler 18 mcg Inhl CpDv 1 cap once daily 20. spironolactone 25 mg Oral tab once daily 21. trazodone 150 mg Oral tab nightly 22. warfarin 2.5 mg Oral tab 1 tab once daily 23. doxycycline hyclate 100 mg Oral cap 1 cap every 12 hours 24. prednisone 20 mg oral tab taper ing dose - started 07/04 - PMHx: Anxiety; Asthma; CHF; COPD; Depression; DVT; GERD; Hypercholesterolemia; Hypertension; - PSHx: Bladder suspension; Cataract Surgery- Bilateral; Tonsillectomy; Hysterectomy; - Social history: Smoking status: Patient states former smoker of tobacco. No barriers to communication noted, The patient speaks fluent Irish. - Family history: Not pertinent. - : The pt / caregiver states he / she is on anticoagulants: coumadin. Home medication list is obtained from [employer] import data. - Exposure Risk Screening:: None identified. Vital Signs: 10:14 BP 115 / 79; Pulse 99; Resp 22; Temp 98.6(TE); Pulse Ox 93% on 2 lpm NC; Pain 0/10; kcs 10:14 Weight 105.69 kg / 233.01 lbs (R); Height 67 in. (170.18 cm) (R); kcs 10:40 BP 132 / 73 (auto/); js13 10:40 Pulse 72 MON; Resp 20; Pulse Ox 94% on 2 lpm NC; js13 11:40 BP 131 / 90 (auto/); ms18 11:43 Pulse 74 MON; Pulse Ox 96% ; ms18 13:33 Pulse 84 MON; Pulse Ox 95% ; ms18 13:40 BP 122 / 91 (auto/); ms18 14:09 BP 161 / 56; Pulse 100; Resp 18; Temp 98; Pulse Ox 97% on 2 lpm NC; Pain 0/10; ms18 10:14 Body Mass Index 36.49 (105.69 kg, 170.18 cm) kcs MDM: 10:16 IV Saline Lock ordered. ml 10:16 Screwdown Operator/Pulse Ox/q 15 min VS ordered. ml 10:16 Rhythm Strip to chart ordered. ml 10:16 Call Respiratory ordered. ml 10:16 -Blood Culture (Adults Only), peripheral from different site, or from device/port/PICC ml etc. if present ordered. 10:17 ECG WITH READING ER PHYS+CARDIAG ordered. EDMS 10:18 CBC with Diff Ordered. EDMS 10:18 MED Profile Ordered. EDMS 10:18 CIP Ordered. EDMS 10:18 Troponin Ordered. EDMS 10:18 BNP Ordered. EDMS 10:18 -Arterial Blood Gas Ordered. EDMS 10:18 Lactic Acid (Cochran tube on ice) Ordered. EDMS 10:18 PT/INR Ordered. EDMS 10:18 PTT Ordered. EDMS 10:18 -Blood Culture Ordered. EDMS 10:18 Chest, 1 View Ordered. EDMS 10:19 -Blood Culture (Adults Only), peripheral from different site, or from device/port/PICC deg etc. if present complete. 10:20 Albuterol 5 mg Nebulizer once ordered. ml 10:20 Albuterol-Ipratropium 3 ml Inhalation once ordered. ml 10:20 Call Respiratory ordered. ml 10:20 Solu-MEDROL 125 mg IVP once ordered. ml 10:21 BLOOD CULTURES Ordered. EDMS 10:21 Call Respiratory complete. ml6 10:22 Call Respiratory complete. deg 11:15 BED REQUEST+ADM ordered. EDMS 11:26 Obtain sample by nasopharyngeal swab ordered. ml 11:27 -Influenza A&B Rapid Antigen - Nose Ordered. EDMS 11:57 [facility] Payment Agreement was scanned into [employer] and attached to record. lg 11:57 Financial registration complete. lg 12:10 CBC with Diff Reviewed. ml 12:10 MED Profile Reviewed. ml 12:10 -Arterial Blood Gas Reviewed. ml 12:10 PT/INR Reviewed. ml 12:10 CIP Reviewed. ml 12:10 Troponin Reviewed. ml 12:10 Lactic Acid (Cochran tube on ice) Reviewed. ml 12:10 PTT Reviewed. ml 12:10 Chest, 1 View Reviewed. ml 12:34 BNP Reviewed. ml 12:34 -Influenza A&B Rapid Antigen - Nose Reviewed. ml 12:48 Admission / Observation Status ordered. EDMS 12:48 2 GRAM SODIUM DIET ordered. EDMS 07/11 10:00 T-Sheet-- Draft Copy was scanned into [employer] and attached to record. gb 10:00 ECG/EKG was scanned into [employer] and attached to record. gb 10:00 Radiology Report was scanned into [employer] and attached to record. gb Administered Medications: 07/10 10:45 Drug: Albuterol 5 mg [albuterol sulfate 2.5 mg/0.5 mL solution for nebulization (1 mL)] cs15 Route: Nebulizer; 14:14 Follow up: Response: No Adverse Reaction ms18 10:45 Drug: Albuterol-Ipratropium 3 ml [ipratropium-albuterol 0.5 mg-3 mg(2.5 mg base)/3 mL cs15 nebulization soln (3 mL)] Route: Inhalation; 11:14 Not Given (Patient Refused): Solu-MEDROL 125 mg IVP once js13 Critical Care Time: 12:11 Critical care time: Bedside Care: 90 minutes, Consultation: 10 minutes. Total time: 100 ml minutes Signatures: Dispatcher [employer] EDMS Burton Chopra MD MD ml Teresa Urbina, RN RN kcs Rosa Lan, Computer Network Specialist Unit deg Hiral, Ankita, Reg Reg gb Norma Haque, Reg Reg lg Amaury Brasher, RN RN ml6 Ashwini CastellanosRN RN js13 Lilly CruzRN RN ms18 Kishore Sylvester, RN RN [facility] Ant Gomez RT cs15 The chart was reviewed and I authenticate all verbal orders and agree with the evaluation and treatment provided.Attachments: 11:57 [facility] Payment Agreement 07/11 10:00 T-Sheet-- Draft Copy gb 10:00 ECG/EKG Chart Complete MTDD
[2016-07-12] MEDS: SENNA 8.6 MG TAB (SENOKOT) PO SCH (20:28)
[2016-07-12] MEDS: SIMVASTATIN 20 MG TAB PO SCH (20:28)
[2016-07-12 22:00] VITALS: BP_SYST 112; BP_SYST 113; BP_DIAS 60; BP_DIAS 61
[2016-07-12] MEDS: traZODone 50 MG TAB PO SCH (22:07)
[2016-07-13] MEDS: IPRATROPIUM 0.5MG/ALBUTEROL 2.5MG INH SOL UD 3ML (DUONEB)(J7620) NEB SCH ×4 (00:20→19:53)
[2016-07-13] MEDS: PERCOCET 5MG/325MG TAB PO PRN ×4 (04:26→23:02)
[2016-07-13 06:00] VITALS: BP 120/76
[2016-07-13 06:36] LABS: BASO # 0.1 K/mm3 (0.0-0.2); BASO % 1.2 % (0.0-1.0); EOS % 0.3 % (0.0-3.0); LARGE UNSTAINED CELL # 0.1 K/mm3 (0.0-0.4); LARGE UNSTAINED CELL % 1.2 % (0.0-4.0); LYMPH # 3.7 K/mm3 (1.5-4.5); LYMPH % 33.5 % (24.0-44.0); MEAN CORPUSCULAR HEMOGLOBIN 29.8 pg (27.0-33.0); MEAN CORPUSCULAR HGB CONC 31.9 g/dl (32.0-36.5); MEAN CORPUSCULAR VOLUME 93.3 fl (80.0-96.0); MONO # 0.7 K/mm3 (0.0-0.8); MONO % 6.5 % (0.0-5.0); NEUTROPHILS # 6.2 K/mm3 (1.8-7.7); NEUTROPHILS % 57.2 % (36.0-66.0); PLATELET COUNT, AUTOMATED 226 k/mm3 (150-450); RED CELL DISTRIBUTION WIDTH 13.6 % (11.5-14.5); WHITE BLOOD COUNT 10.8 K/mm3 (4.0-10.0)
[2016-07-13 06:37] LABS: INR 2.78
[2016-07-13 06:49] LABS: ALBUMIN 3.4 GM/DL (3.2-5.2); ALBUMIN/GLOBULIN RATIO 0.83 (1.00-1.93); BILIRUBIN,TOTAL 0.4 MG/DL (0.2-1.0); CALCIUM LEVEL 9.2 MG/DL (8.5-10.1); CREATININE FOR GFR 1.2 MG/DL (0.55-1.02); GLOMERULAR FILTRATION RATE 49.1 (>51); MAGNESIUM LEVEL 2.3 MG/DL (1.8-2.4); POTASSIUM SERUM 3.6 MEQ/L (3.5-5.1); TOTAL PROTEIN 7.5 GM/DL (6.4-8.2)
[2016-07-13] MEDS: BUDESONIDE 0.5 MG/2 ML INHALATION SUSPENSION INH SCH ×2 (07:19→19:53)
[2016-07-13] MEDS: FORMOTEROL FUMARATE 20 MCG/2 ML INHALATION SOLUTION (PERFOROMIST) INH SCH ×2 (07:19→19:53)
[2016-07-13] MEDS: POTASSIUM CHLORIDE 10 MEQ SR TABLET PO SCH (09:40)
[2016-07-13] MEDS: FUROSEMIDE 40 MG TAB PO SCH ×2 (09:40→16:59)
[2016-07-13] MEDS: ALPRAZolam 0.5 MG TAB PO SCH ×2 (09:41→21:30)
[2016-07-13] MEDS: VITAMIN D 1,000 INTERNATIONAL UNITS TABLET PO SCH (09:41)
[2016-07-13] MEDS: SPIRONOLACTONE 25 MG TAB PO SCH ×2 (09:41→16:59)
[2016-07-13] MEDS: predniSONE 10 MG TAB PO SCH (09:41)
[2016-07-13] MEDS: guaiFENesin ER 600 MG TAB PO SCH ×2 (09:41→21:30)
[2016-07-13] MEDS: ASPIRIN 81 MG CHEW TABLET PO SCH (09:41)
[2016-07-13] MEDS: OMEPRAZOLE 20 MG CAP PO SCH (09:41)
--- NOTE | 2016-07-13 10:19 | IPNPDOC ---
Assessment/Plan Date Seen The patient was seen on 07/13/16. Problems Problems: (1) COPD exacerbation Onset Date: 01/11/2014 Status: Acute Problem Text: will continue with nebulizations and prednisone. will add budesonide nebulizations. (2) Chronic respiratory failure with hypoxia and hypercapnia Status: Chronic Problem Text: chronic respiratory failure with hypoxia and hypercarbia. continue home oxygen (3) Diastolic CHF, chronic Status: Chronic Response to Treatment: Stable Problem Text: continue lasix and spironolactone. (4) DVT (deep venous thrombosis) Status: Chronic Problem Text: continue coumadin (5) HTN (hypertension) Status: Chronic (6) Morbid obesity with BMI of 45.0-49.9, adult Status: Chronic (7) GERD (gastroesophageal reflux disease) Status: Chronic (8) Anxiety Status: Chronic (9) Lung nodule Status: Chronic (10) Hypercholesteremia Status: Chronic Plan / VTE VTE Prophylaxis Ordered?: Yes Subjective Review of Systems CC/HPI The patient is a 56-year-old female admitted with a reason for visit of Copd Exacerbation. Events since last encounter feeling better, cough is improving, chest tightness and sob getting better, no nausea or vomiting or diarrhea. Objective Physical Examination General Exam: Positive: Alert, No Acute Distress Eye Exam: Positive: Conjunctiva & lids normal, EOMI, PERRLA, Negative: Sclera icteric ENT Exam: Positive: Atraumatic, Mucous membr. moist/pink, Pharynx Normal Neck Exam: Positive: Supple, Negative: JVD, thyromegaly Chest Exam: Positive: Diminished, Rhonchi, Wheezing Heart Exam: Positive: Normal S1, Normal S2, Rate Normal, Regular Rhythm, Negative: Murmurs, Rubs Abdomen Exam: Positive: Normal bowel sounds, Soft, Negative: Hepatospenomegaly, Tenderness Extremity Exam: Positive: Normal pulses, Negative: Clubbing, Cyanosis, Edema Vital Signs/I&O Vital Signs Date Time Temp Pulse Resp B/P Pulse Ox O2 Delivery O2 Flow Rate FiO2 07/13/16 06:00 97.2 86 20 120/76 98 Nasal Cannula 2.0 I&O- Last 24 Hours up to 6 AM 07/13/16 06:00 Intake Total 1660 ml Output Total 1100 ml Balance 560 ml Laboratory Data Labs 24H Laboratory Tests 2 07/13/16 06:00: Blood Urea Nitrogen 25H, Creatinine 1.20H, Sodium Level 135L, Potassium Level 3.6, Chloride Level 93L, Carbon Dioxide Level 35H, Calcium Level 9.2, Aspartate Amino Transf (AST/SGOT) 19, Alanine Aminotransferase (ALT/SGPT) 23, Alkaline Phosphatase 85, Total Bilirubin 0.4#, Total Protein 7.5, Albumin 3.4, Albumin/ Globulin Ratio 0.83L, Anion Gap 7L, White Blood Count 10.8H, Red Blood Count 4.50, Hemoglobin 13.4, Hematocrit 42.0, Mean Corpuscular Volume 93.3, Mean Corpuscular Hemoglobin 29.8, Mean Corpuscular Hemoglobin Concent 31.9L, Red Cell Distribution Width 13.6, Platelet Count 226, Neutrophils (%) (Auto) 57.2, Lymphocytes (%) (Auto) 33.5, Monocytes (%) (Auto) 6.5H, Eosinophils (%) (Auto) 0.3, Basophils (%) (Auto) 1.2H, Neutrophils # (Auto) 6.2, Lymphocytes # (Auto) 3.7, Monocytes # (Auto) 0.7, Eosinophils # (Auto) 0.0, Basophils # (Auto) 0.1, Glomerular Filtration Rate 49.1L, Large Unclassified Cells # 0.1, Large Unclassified Cells % 1.2, Magnesium Level 2.3, Prothromb Time International Ratio 2.78, Prothrombin Time 29.4H CBC/BMP Laboratory Tests 07/13/16 06:00 Calcium Level 9.2, Aspartate Amino Transf (AST/SGOT) 19, Alanine Aminotransferase (ALT/SGPT) 23, Alkaline Phosphatase 85, Total Bilirubin 0.4 #, Total Protein 7.5, Albumin 3.4, Red Blood Count 4.50, Mean Corpuscular Volume 93.3, Mean Corpuscular Hemoglobin 29.8, Mean Corpuscular Hemoglobin Concent 31.9 L, Red Cell Distribution Width 13.6, Neutrophils (%) (Auto) 57.2, Lymphocytes (%) (Auto) 33.5, Monocytes (%) (Auto) 6.5 H, Eosinophils (%) (Auto) 0.3, Basophils (%) (Auto) 1.2 H, Neutrophils # (Auto) 6.2, Lymphocytes # (Auto) 3.7, Monocytes # (Auto) 0.7, Eosinophils # (Auto) 0.0, Basophils # (Auto) 0.1 Microbiology Microbiology 07/10/16 Blood Culture - Preliminary, Resulted No Growth after 48 hours. All Specime... 07/10/16 Blood Culture - Preliminary, Resulted No Growth after 48 hours. All Specime... 07/10/16 Influenza Virus Type A Antigen - Final, Complete 07/10/16 Influenza Virus Type B Antigen - Final, Complete EILEEN DONOVAN MD Jul 13, 2016 10:19
[2016-07-13] MEDS: IPRATROPIUM 0.5MG/ALBUTEROL 2.5MG INH SOL UD 3ML (DUONEB)(J7620) NEB PRN ×2 (10:30→17:28)
[2016-07-13 14:00] VITALS: BP 133/58
[2016-07-13] MEDS: SENNA 8.6 MG TAB (SENOKOT) PO SCH (21:30)
[2016-07-13] MEDS: traZODone 50 MG TAB PO SCH (21:30)
[2016-07-13] MEDS: SIMVASTATIN 20 MG TAB PO SCH (21:30)
[2016-07-13 22:00] VITALS: BP 129/80
[2016-07-14] MEDS: IPRATROPIUM 0.5MG/ALBUTEROL 2.5MG INH SOL UD 3ML (DUONEB)(J7620) NEB SCH ×2 (01:48→08:00)
[2016-07-14] MEDS: PERCOCET 5MG/325MG TAB PO PRN ×2 (05:43→11:22)
[2016-07-14 06:00] VITALS: BP 155/71
[2016-07-14 06:40] LABS: BASO # 0.1 K/mm3 (0.0-0.2); BASO % 0.7 % (0.0-1.0); EOS % 0.5 % (0.0-3.0); LARGE UNSTAINED CELL # 0.2 K/mm3 (0.0-0.4); LARGE UNSTAINED CELL % 1.6 % (0.0-4.0); LYMPH # 3.3 K/mm3 (1.5-4.5); LYMPH % 27.3 % (24.0-44.0); MEAN CORPUSCULAR HEMOGLOBIN 30.1 pg (27.0-33.0); MEAN CORPUSCULAR HGB CONC 33.4 g/dl (32.0-36.5); MEAN CORPUSCULAR VOLUME 90.1 fl (80.0-96.0); MONO # 0.8 K/mm3 (0.0-0.8); MONO % 6.6 % (0.0-5.0); NEUTROPHILS # 7.2 K/mm3 (1.8-7.7); NEUTROPHILS % 63.3 % (36.0-66.0); PLATELET COUNT, AUTOMATED 256 k/mm3 (150-450); RED CELL DISTRIBUTION WIDTH 13.6 % (11.5-14.5); WHITE BLOOD COUNT 11.4 K/mm3 (4.0-10.0)
[2016-07-14 07:01] LABS: ALBUMIN 3.4 GM/DL (3.2-5.2); ALBUMIN/GLOBULIN RATIO 0.83 (1.00-1.93); BILIRUBIN,TOTAL 0.4 MG/DL (0.2-1.0); CALCIUM LEVEL 9.2 MG/DL (8.5-10.1); CREATININE FOR GFR 1.15 MG/DL (0.55-1.02); GLOMERULAR FILTRATION RATE 51.6 (>51); MAGNESIUM LEVEL 2.4 MG/DL (1.8-2.4); POTASSIUM SERUM 3.9 MEQ/L (3.5-5.1); TOTAL PROTEIN 7.5 GM/DL (6.4-8.2)
[2016-07-14] MEDS: BUDESONIDE 0.5 MG/2 ML INHALATION SUSPENSION INH SCH (08:11)
[2016-07-14] MEDS: FORMOTEROL FUMARATE 20 MCG/2 ML INHALATION SOLUTION (PERFOROMIST) INH SCH (08:11)
[2016-07-14] MEDS: predniSONE 10 MG TAB PO SCH (08:55)
[2016-07-14] MEDS: FUROSEMIDE 40 MG TAB PO SCH (08:55)
[2016-07-14] MEDS: VITAMIN D 1,000 INTERNATIONAL UNITS TABLET PO SCH (08:55)
[2016-07-14] MEDS: guaiFENesin ER 600 MG TAB PO SCH (08:55)
[2016-07-14] MEDS: SPIRONOLACTONE 25 MG TAB PO SCH (08:55)
[2016-07-14] MEDS: OMEPRAZOLE 20 MG CAP PO SCH (08:55)
[2016-07-14] MEDS: ASPIRIN 81 MG CHEW TABLET PO SCH (08:55)
[2016-07-14] MEDS: ALPRAZolam 0.5 MG TAB PO SCH (08:55)
[2016-07-14] MEDS: POTASSIUM CHLORIDE 10 MEQ SR TABLET PO SCH (08:55)
[2016-07-14] MEDS ORDERED: PRED10TA FT (10:14)
[2016-07-14] MEDS ORDERED: MUCI600T34 PO (10:14)
--- NOTE | 2016-07-14 16:38 | DSES ---
DATE OF ADMISSION: 07/10/2016 DATE OF DISCHARGE: 07/14/2016 PRIMARY CARE PROVIDER: Dr. Chu DISCHARGE DIAGNOSES: 1. Chronic obstructive pulmonary disease exacerbation. 2. Chronic respiratory failure with hypoxia and hypercapnia. 3. Chronic diastolic congestive heart failure. 4. History of deep vein thrombosis, on Coumadin. 5. Hypertension. 6. Morbid obesity. 7. Gastroesophageal reflux disease. 8. Anxiety. 9. Hypercholesterolemia. 10. Lung nodule, being followed up as an outpatient. DISCHARGE MEDICATIONS: - Mucinex 600 mg tablet by mouth twice a day - prednisone 10 mg tablet tapering course - albuterol sulfate two puff inhalation every 4 hours as needed shortness of breath - albuterol ipratropium nebulizer solution, one solution four times a day - alprazolam 1 mg by mouth twice a day - aspirin 81 mg daily - cholecalciferol 2000 units by mouth daily - Lasix 40 mg by mouth twice a day - Lamotrigine 150 mg by mouth daily - mometasone inhaler 200 mcg inhalation at bedtime - nitroglycerine 0.4 mg sublingual as needed - omeprazole 40 mg by mouth daily - oxycodone/acetaminophen 5/325 mg one tablet by mouth every 6 hours as needed pain - MiraLax one such as needed daily - potassium chloride 40 mEq by mouth daily - senna two tablets by mouth at bedtime - simvastatin 20 mg at bedtime - spironolactone 25 mg by mouth twice a day - trazodone 150 mg at bedtime - Coumadin 2 mg at bedtime HOSPITAL COURSE: This is a 56-year-old female who presented to the hospital with 1-week history of increasing shortness of breath. During that time, he had come to the emergency room and was given doxycycline and prednisone. She felt a little better after that, however, 2 days ago again started having shortness of breath, hacking cough with severe bouts, and she would become extremely short of breath. She was found to have chronic obstructive pulmonary disease (COPD) exacerbation and was admitted for that. Patient was treated with nebulizers, high-dose IV prednisone, followed by oral prednisone. She was also started on cough syrup and Mucinex for persistent cough. She was also put on budesonide and Perforomist nebulizer solution, which seem to have helped. Patient's symptoms improved, and on the day of discharge patient was functioning at her baseline, stable vital signs. PHYSICAL EXAMINATION: VITAL SIGNS: Temperature 96.4, pulse 85, respiratory rate 18, blood pressure 155/71, pulse oximetry 98% with 2 liters nasal cannula. GENERAL: Patient awake, alert, oriented times three. Lying down in bed in no acute distress. HEENT: Normocephalic, atraumatic. Moist mucous membranes. Anicteric eyes. CHEST: There is diffuse mild wheezing present. Good air entry. CARDIOVASCULAR: S1, S2, regular. No rub, murmur, or gallop. ABDOMEN: Obese, soft, nontender. Bowel sounds present. EXTREMITIES: No edema. LABORATORY DATA: WBC 11.4, hemoglobin 13.5, platelets 256. Sodium 136, potassium 3.9, chloride 94, bicarbonate 34, BUN 27, creatinine 1.1. Liver function tests are normal. Blood gas was 7.42 pH, pCO2 of 57, pO2 of 34. INR was 2.78. DISPOSITION: Patient is discharged home is a stable condition. DISCHARGE INSTRUCTIONS: Patient to followup with primary care provider in 1 week. Regular diet. Activity as tolerated.
== END 2016-07-14 11:25 | disposition home health service (06) | DRG 140 ==
LOC: M ED 09:57 → OBSVTOIN 12:41 → M ED INP 12:41 → M MSPAV 14:41 → OBSVTOIN 07-12 09:34 → INTOOBSV 07-12 09:34
PROVIDERS: ADMIT Internal Medicine; ATTEND Internal Medicine Nephrology
DX: J44.1 Chronic obstructive pulmonary disease with (acute) exacerbation (principal); J96.21 Acute and chronic respiratory failure with hypoxia; I50.32 Chronic diastolic (congestive) heart failure; J96.22 Acute and chronic respiratory failure with hypercapnia; Z99.81 Dependence on supplemental oxygen; E66.01 Morbid (severe) obesity due to excess calories; Z68.42 Body mass index [BMI] 45.0-49.9, adult; R91.1 Solitary pulmonary nodule; F41.9 Anxiety disorder, unspecified; E78.00 Pure hypercholesterolemia, unspecified; F32.9 Major depressive disorder, single episode, unspecified; K21.9 Gastro-esophageal reflux disease without esophagitis; E78.5 Hyperlipidemia, unspecified; Z96.641 Presence of right artificial hip joint; Z90.710 Acquired absence of both cervix and uterus; Z88.0 Allergy status to penicillin; Z88.1 Allergy status to other antibiotic agents; Z88.6 Allergy status to analgesic agent; Z88.2 Allergy status to sulfonamides; Z88.8 Allergy status to other drugs, medicaments and biological substances; Z79.82 Long term (current) use of aspirin; Z79.52 Long term (current) use of systemic steroids; Z79.899 Other long term (current) drug therapy; Z79.01 Long term (current) use of anticoagulants

== ENCOUNTER → 2016-07-28 | Outpatient (REF) | payer OTHER ==
[~2016-07-28] MED LIST changes: +ALPR1TAB3 PO; +ASMA1AER3 INH; +DOXY100C PO; +IPRASOL4 INH; +LAMO150T PO; +MUCI600T34 PO; +OMEP40CA2 PO; +POTA1TAB14 PO; +PRED10TA FT; +SENN1TAB4 PO; +VITA200038 PO; +WARF4TAB51 PO
== END ==
LOC: M LAB REF 12:03
PROVIDERS: ATTEND Internal Medicine Cardiovascular Disease
DX: R06.2 Wheezing (principal)

== ENCOUNTER 2016-08-11 15:23 | Emergency (ER) | payer MEDICAID, OTHER ==
[2016-08-11] MEDS ORDERED: IPRATROPIUM 0.5MG/ALBUTEROL 2.5MG INH SOL UD 3ML (DUONEB)(J7620) As Ordered ONE (15:43)
[2016-08-11 15:58] LABS: ABG BASE EXCESS 5.1 (-2.0-2.0); ABG DEVICE NASAL CANN; ABG HCO3 30.7 MEQ/L (22.0-26.0); ABG PARTIAL PRESSURE CO2 49.9 mmHg (35.0-45.0); ABG TOTAL CO2 32.2 MEQ/L (22.0-29.0); ABG pH (ARTERIAL) 7.407 UNITS (7.350-7.450)
[2016-08-11 16:39] LABS: BASO % 0.7 % (0.0-1.0); EOS # 0.2 K/mm3 (0.0-0.50); EOS % 3.1 % (0.0-3.0); LARGE UNSTAINED CELL # 0.1 K/mm3 (0.0-0.4); LYMPH # 1.9 K/mm3 (1.5-4.5); LYMPH % 26.7 % (24.0-44.0); MEAN CORPUSCULAR HEMOGLOBIN 29.8 pg (27.0-33.0); MEAN CORPUSCULAR HGB CONC 31.5 g/dl (32.0-36.5); MEAN CORPUSCULAR VOLUME 94.8 fl (80.0-96.0); MONO # 0.3 K/mm3 (0.0-0.8); MONO % 4.5 % (0.0-5.0); NEUTROPHILS # 4.3 K/mm3 (1.8-7.7); NEUTROPHILS % 64.1 % (36.0-66.0); PLATELET COUNT, AUTOMATED 387 k/mm3 (150-450); RED CELL DISTRIBUTION WIDTH 13.2 % (11.5-14.5); WHITE BLOOD COUNT 6.8 K/mm3 (4.0-10.0)
[2016-08-11 17:01] LABS: ANION GAP 7 MEQ/L (8-16); BLOOD UREA NITROGEN 8 MG/DL (7-18); CALCIUM LEVEL 7.9 MG/DL (8.5-10.1); CARBON DIOXIDE LEVEL 29 MEQ/L (21-32); CHLORIDE LEVEL 107 MEQ/L (98-107); GLOMERULAR FILTRATION RATE > 60.0 (>51); GLUCOSE, FASTING 90 MG/DL (70-105); POTASSIUM SERUM 3.9 MEQ/L (3.5-5.1); SODIUM LEVEL 143 MEQ/L (136-145)
--- NOTE | 2016-08-11 17:06 | REP ---
Clinical: Cough. Technique: AP and lateral views. Comparison: 07/10/2016. Findings: Mediastinum and cardiac silhouette are normal. Lateral chest x-ray demonstrates blunting to the left posterior costophrenic angle suggesting small left lower lobe atelectasis/pleural reaction. No pneumothorax. Skeletal structures intact. Impression: Small left lower lobe atelectasis/pleural reaction. Signed by Lee Wolf MD 08/11/2016 04:51 P
--- NOTE | 2016-08-11 18:02 | EDDOCDS ---
Physician Documentation [facility] Name: Katrin Alfred Age: 56 yrs Sex: Female : 1960 Arrival Date: 08/11/2016 Time: 15:23 Bed 17 Private MD: Shailesh Chu Disposition: 08/11 17:20 Critical Care: Critical care not applicable. pc Disposition: 08/11/16 17:22 Discharged to Home/Self Care. Impression: Chronic obstructive pulmonary disease with (acute) exacerbation. - Condition is Stable. - Discharge Instructions: Chronic Obstructive Pulmonary Disease. - Medication Reconciliation, Local Pharmacy Hours form. - [facility]; When: Call to arrange an appointment; Reason: Continuance of care. - Problem is an acute exacerbation. - Symptoms have improved. HPI: 15:39 This 56 yrs old Female presents to ER via Ambulance with complaints of pc Breathing Difficulty. 15:39 The history is obtained from the patient, EMS providers. The patient presents with pc shortness of breath, with a prior history of COPD. The symptoms began gradually yesterday. The symptoms are continuous, and are unchanged since they started. There were no precipitating events that led to the current complaints. The patient has shortness of breath at rest, with light activity. At their worst, the symptoms were moderate. In the emergency department, the symptoms are mild. The patient's shortness of breath is aggravated by coughing, is alleviated by nebulizer treatment. The patient's dyspnea was accompanied with cough, productive, of yellow sputum. The patient has experienced similar episodes in the past, chronically. The patient has been recently been admitted at [facility], was discharged last month, for similar complaints. Historical: - Allergies: Augmentin (Hives); Cephalexin (Hives); Ciprofloxacin (Hives); CLAVULANIC ACID (Hives); Erythromycin (Hives); iopamidol (Hives); Methylprednisolone (Hives); Morphine (Hives); moxifloxacin (Hives); PENICILLINS (Hives); QUINOLONES (Hives); SULFA (SULFONAMIDES) (Hives); - Home Meds: 1. Albuterol Inhl 2 puffs as needed (Last dose: 08/11/2016 07:00) 2. aspirin 81 mg Oral tab 1 tab once daily (Last dose: 08/11/2016 07:00) 3. fluoxetine 40 mg Oral cap 1 cap once daily HOLDING FOR FIVE DAYS (Last dose: 08/09/2016) 4. furosemide 40 mg Oral tab 1 tab 2 times per day being held for five days (Last dose: 08/09/2016 07:00) 5. lamotrigine 100 mg Oral tab 1 tab once daily (Last dose: 08/11/2016 07:00) 6. loratadine 10 mg Oral TbDL 1 tab once daily (Last dose: 08/11/2016 07:00) 7. O2 2L NC (Last dose: 08/11/2016 15:00) 8. omeprazole 40 mg Oral cpDR 1 cap once daily (Last dose: 08/11/2016 07:00) 9. Percocet 5-325 mg Oral tab as needed (Last dose: 08/11/2016 12:00) 10. simvastatin 20 mg Oral tab 1 tab once daily (Last dose: 08/11/2016 07:00) 11. spironolactone 25 mg Oral tab once daily (Last dose: 08/11/2016 07:00) 12. trazodone 150 mg Oral tab nightly (Last dose: 08/10/2016 21:00) 13. warfarin 2 mg oral tab (Last dose: 08/11/2016 15:00) - PMHx: Anxiety; Asthma; CHF; COPD; Depression; DVT; GERD; Hypercholesterolemia; - PSHx: Bladder suspension; Cataract Surgery- Bilateral; Tonsillectomy; Hysterectomy; Hip Arthroplasty, Right; right foot blood clot removal; - The history from nurses notes was reviewed: but there are no nursing notes, or only partial notes available at the time of my charting. - Social history: Smoking status: Patient states former smoker of tobacco. No barriers to communication noted, The patient speaks fluent Vietnamese. - Hospitalizations: : The patient was recently seen at [facility], and discharged 4 week(s) ago. - : The pt / caregiver states he / she is on anticoagulants: coumadin. Home medication list is obtained from the patient. - Immunization history:: All immunizations up-to-date. - Exposure Risk Screening:: None identified. - Family history: Not pertinent. - Social history:: the patient is a former smoker, the patient does not drink alcohol. ROS: 15:39 All systems are negative except as listed. The gastrointestinal and genitourinary pc components are also addressed in the HPI. Exam: 15:39 General Appearance: alert, the patient is in mild distress, anxious. pc 15:39 EENT: normal eye inspection, ears, nose and throat normal, pharynx normal, mucous membranes moist 15:39 Neck: normal inspection. 15:39 Respiratory: no pleuritic chest pain, speaks in full sentences, the patient is in mild respiratory distress, auscultation reveals wheezes, diffusely, decreased air entry noted left posterior lower lobe and right posterior lower lobe. 15:39 Cardiovascular: normal heart rate, normal rhythm, no jugular venous distension appreciated, no murmurs, no gallop, no friction rub, peripheral pulses full and equal bilaterally. 15:39 Abdomen: non-tender, non-distended, no organomegaly. 15:39 Skin: normal color, warm, dry. 15:39 Extremities: non-tender, normal range of motion of all joints, no pedal edema. 15:39 Neuro: alert, oriented to person, place and time, cranial nerves normal as tested, no motor deficits, no sensory deficits. 15:39 Psych: normal mood. Vital Signs: 15:36 BP 106 / 70; Pulse 100; Resp 20; Temp 99.3(TE); Pulse Ox 98% on 2 lpm NC; Weight 104.78 ja5 kg / 231 lbs; Height 5 ft. 6 in. (167.64 cm); Pain 0/10; 16:15 Pulse 96 MON; Pulse Ox 96% ; ja5 16:38 Pulse 92 MON; Pulse Ox 98% ; ja5 16:40 Pulse 92 MON; Pulse Ox 96% ; ja5 17:20 Pulse 90 MON; Pulse Ox 99% ; ja5 17:45 BP 110 / 66; Pulse 86; Resp 16 S; Temp 97.6(A); Pulse Ox 96% on 2 lpm NC; Pain 0/10; ja5 15:36 Body Mass Index 37.28 (104.78 kg, 167.64 cm) ja5 MDM: 15:36 -Blood Culture (Adults Only), peripheral from different site, or from device/port/PICC pc etc. if present ordered. 15:36 Call Respiratory ordered. pc 15:36 Electrical And Instrument Engineer/Pulse Ox/q 15 min VS ordered. pc 15:36 IV Saline Lock ordered. pc 15:36 Rhythm Strip to chart ordered. pc 15:36 Oxygen (enter rate/delivery method/parameters) ordered. pc 15:37 -Arterial Blood Gas Ordered. EDMS 15:37 B-Type Natiuretic Peptide Ordered. EDMS 15:38 Basic Metabolic Profile Ordered. EDMS 15:38 CBC with Diff Ordered. EDMS 15:38 -Blood Culture Ordered. EDMS 15:38 Chest, 2 View (pa\E\lat) Ordered. EDMS 15:38 ECG WITH READING ER PHYS+CARDIAG ordered. EDMS 15:39 Differential diagnosis: Chronic Obstructive Pulmonary Disease pneumonia. Plan: labs, pc meds, nebs, CXR, EKG. 15:40 Call Respiratory complete. [id number] 15:42 -Blood Culture (Adults Only), peripheral from different site, or from device/port/PICC lbd etc. if present complete. 15:43 BLOOD CULTURES Ordered. EDMS 16:08 -Arterial Blood Gas Reviewed. pc 16:14 Test interpretation: EKG. pc 16:33 Financial registration complete. kf3 17:19 [facility] Payment Agreement was scanned into [employer] and attached to record. kf3 17:19 Basic Metabolic Profile Reviewed. pc 17:19 CBC with Diff Reviewed. pc 17:19 B-Type Natiuretic Peptide Reviewed. pc 17:20 Antibiotic administration: Not indicated, the patient does not have an appreciated pc infiltrate. Data reviewed: old medical records, vital signs, nurses notes, EKG(s), lab test results, all radiology studies and available results. Test interpretation: LAB - all labs as ordered have been reviewed, interpreted and considered in the overall management of the clinical presentation; X-RAY - interpreted by Radiologist and personally reviewed, 2 view chest, LLL atelectasis. The patient has been re-examined and re-evaluated. The patient's symptoms have mildly improved after treatment, but she has refused all nebs and meds. Physician consultation: Dr. Shailesh Chu DO regarding patient's condition, and will see patient in ED. Disposition: The historical points, examination findings, and any diagnostic results supporting the provided diagnosis, were discussed with the patient or legal guardian. The need for outpatient follow up with the provider listed on their discharge instructions was discussed. They were encouraged to return to [facility], or the nearest ED, if symptoms worsen/persist, or for any other questions/concerns. EC:14 Rate is 97 beats/min. Rhythm is regular, Normal Sinus Rhythm. QRS [place] is Normal. [place] pc interval is normal. QRS interval is normal. QT interval is normal. No Q waves. T waves are Normal. No ST changes noted. Clinical impression: Normal Sinus Rhythm. Administered Medications: 15:48 CANCELLED (Patient Refused): Solu-MEDROL 125 mg IVP once pc 16:34 CANCELLED (Patient Refused): Albuterol-Ipratropium 1 neb Nebulizer every 20 minutes x3 pc Signatures: Dispatcher [employer] EDMS Diego Ramos MD MD pc Daly, Linda, Paralegal Legal Secretary Unit lbd Sumit Hernandez, Reg Reg kf3 Ashwini Reyes RN RN [id number] Lisha Lopez RN RN ja5 The chart was reviewed and I authenticate all verbal orders and agree with the evaluation and treatment provided.Corrections: (The following items were deleted from the chart) 15:48 15:36 Solu-MEDROL 125 mg IVP once ordered. pc pc 16:34 15:36 Albuterol-Ipratropium 1 neb Nebulizer every 20 minutes x3 ordered. pc pc Attachments: 17:19 [facility] Payment Agreement [email or web address]
--- NOTE | 2016-08-11 18:02 | EDDOCDS ---
Nurse's Notes [facility] Name: Katrin Alfred Age: 56 yrs Sex: Female : 1960 Arrival Date: 08/11/2016 Time: 15:23 Bed 17 Private MD: Shailesh Chu Diagnosis: Chronic obstructive pulmonary disease with (acute) exacerbation Presentation: 08/11 15:29 Presenting complaint: EMS states: Patient having difficulty breathing upon arrival, ja5 wheezing, edema to lower extremities. Patient states nausea and feeling lightheaded for three days. 20g left hand. Adult Sepsis Screening: The patient does not have new or worsening altered mentation. Patient's respiratory rate is less than 22. Systolic blood pressure is greater than 100. Patient has a qSOFA score of 0- Negative Sepsis Screen. Suicide/Homicide risk assessment- the patient denies having any suicidal and/or homicidal ideations and does not present with any other emotional, behavioral or mental health complaints. Status: Patient is not a auto service representative or dependent. Transition of care: patient was not received from another setting of care. 15:29 Acuity: TAMIA Level 3 ja5 15:29 Method Of Arrival: Ambulance ja5 Triage Assessment: 15:49 General: Appears uncomfortable. Pain: Denies pain. HIV screening NA for this visit ja5 Offered previously. Respiratory: Onset: The symptoms/episode began/occurred always short of breath. Historical: - Allergies: Augmentin (Hives); Cephalexin (Hives); Ciprofloxacin (Hives); CLAVULANIC ACID (Hives); Erythromycin (Hives); iopamidol (Hives); Methylprednisolone (Hives); Morphine (Hives); moxifloxacin (Hives); PENICILLINS (Hives); QUINOLONES (Hives); SULFA (SULFONAMIDES) (Hives); - Home Meds: 1. Albuterol Inhl 2 puffs as needed (Last dose: 08/11/2016 07:00) 2. aspirin 81 mg Oral tab 1 tab once daily (Last dose: 08/11/2016 07:00) 3. fluoxetine 40 mg Oral cap 1 cap once daily HOLDING FOR FIVE DAYS (Last dose: 08/09/2016) 4. furosemide 40 mg Oral tab 1 tab 2 times per day being held for five days (Last dose: 08/09/2016 07:00) 5. lamotrigine 100 mg Oral tab 1 tab once daily (Last dose: 08/11/2016 07:00) 6. loratadine 10 mg Oral TbDL 1 tab once daily (Last dose: 08/11/2016 07:00) 7. O2 2L NC (Last dose: 08/11/2016 15:00) 8. omeprazole 40 mg Oral cpDR 1 cap once daily (Last dose: 08/11/2016 07:00) 9. Percocet 5-325 mg Oral tab as needed (Last dose: 08/11/2016 12:00) 10. simvastatin 20 mg Oral tab 1 tab once daily (Last dose: 08/11/2016 07:00) 11. spironolactone 25 mg Oral tab once daily (Last dose: 08/11/2016 07:00) 12. trazodone 150 mg Oral tab nightly (Last dose: 08/10/2016 21:00) 13. warfarin 2 mg oral tab (Last dose: 08/11/2016 15:00) - PMHx: Anxiety; Asthma; CHF; COPD; Depression; DVT; GERD; Hypercholesterolemia; - PSHx: Bladder suspension; Cataract Surgery- Bilateral; Tonsillectomy; Hysterectomy; Hip Arthroplasty, Right; right foot blood clot removal; - The history from nurses notes was reviewed: but there are no nursing notes, or only partial notes available at the time of my charting. - Social history: Smoking status: Patient states former smoker of tobacco. No barriers to communication noted, The patient speaks fluent Upper Sorbian. - Hospitalizations: : The patient was recently seen at [facility], and discharged 4 week(s) ago. - : The pt / caregiver states he / she is on anticoagulants: coumadin. Home medication list is obtained from the patient. - Immunization history:: All immunizations up-to-date. - Exposure Risk Screening:: None identified. - Family history: Not pertinent. - Social history:: the patient is a former smoker, the patient does not drink alcohol. Screenin:26 Infection Control. lbd 15:52 Screening information is obtained from the patient. Fall risk: At risk due to prior ja5 history of falls. Assistance ADL's: Requires assistance with meal preparation, this assistance is provided by Home Health Aides, bathing, assistance is provided by Home Health Aides, housework, assistance is provided by Home Health Aides. Abuse/DV Screen: The patient / caregiver reports he/she is: not in a situation that causes fear, pain or injury. Nutritional screening: On no prescribed diet. Advance Directives: Currently, there is no health care proxy. There is no active DNR order. There is no living will. There is no Power of Senior Controls Analyst. home support is adequate. Assessment: 15:54 General: Appears uncomfortable, Behavior is appropriate for age, cooperative. ja5 Neurological: Level of Consciousness is awake, alert, Oriented to person, place, time. Cardiovascular: Capillary refill < 3 seconds Heart tones S1 S2 present. Respiratory: Airway is patent Respiratory effort is even, unlabored, Breath sounds are diminished in right posterior upper lobe, right posterior middle lobe and right posterior lower lobe Breath sounds with wheezes expiratory in left posterior upper lobe and left posterior lower lobe. Derm: Skin is pink, warm & dry. 17:41 General: Appears in no apparent distress, Behavior is appropriate for age, cooperative. ja5 Neurological: Level of Consciousness is awake, alert, Oriented to person, place, time. Cardiovascular: Capillary refill < 3 seconds. Cardiovascular: Denies lightheadedness. Respiratory: Airway is patent Respiratory effort is even, unlabored. Respiratory: Denies shortness of breath at rest. Derm: Skin is pink, warm & dry. Vital Signs: 15:36 BP 106 / 70; Pulse 100; Resp 20; Temp 99.3(TE); Pulse Ox 98% on 2 lpm NC; Weight 104.78 ja5 kg; Height 5 ft. 6 in. (167.64 cm); Pain 0/10; 16:15 Pulse 96 MON; Pulse Ox 96% ; ja5 16:38 Pulse 92 MON; Pulse Ox 98% ; ja5 16:40 Pulse 92 MON; Pulse Ox 96% ; ja5 17:20 Pulse 90 MON; Pulse Ox 99% ; ja5 17:45 BP 110 / 66; Pulse 86; Resp 16 S; Temp 97.6(A); Pulse Ox 96% on 2 lpm NC; Pain 0/10; ja5 15:36 Body Mass Index 37.28 (104.78 kg, 167.64 cm) 5 Vitals: 15:49 Log In Time: August 11, 2016 at 15:36. 5 ED Course: 15:24 Patient visited by Renata Camacho, Wiring Inspector. lbd 15:24 Patient moved to Waiting lbd 15:24 The patient / caregiver is instructed regarding the plan of care and ED course. ja5 15:25 Shailesh Chu DO is Private Physician. lbd 15:26 Ashwini Reyes, RN is Primary Nurse. lbd 15:26 Lisha Lopez,BRYNN is Primary Nurse. lbd 15:26 Diego Ramos MD is Attending Physician. pc 15:26 Patient moved to 17 lbd 15:35 Patient visited by Diego Ramos MD. pc 15:36 Triage Initiated ja5 15:56 EKG done. (by ED staff). Reviewed by Diego Ramos MD. jrd 16:30 -Blood Culture Sent. jo3 16:30 B-Type Natiuretic Peptide Sent. jo3 16:30 Basic Metabolic Profile Sent. jo3 16:30 CBC with Diff Sent. jo3 16:48 Patient visited by Lisha Lopez RN. ja5 16:48 Maintain field IV. Dressing intact. Good blood return noted. Site clean & dry. Gauge & ja5 site: 20g left hand. 17:13 Patient name changed from Katrin\S\M\S\Crosbie\S\ to Katrin\S\Ema\S\Crosbie. EDMS 17:19 COUNTS INCLUDE 234 BEDS AT THE [facility] Payment Agreement was scanned into [employer] and attached to record. kf3 17:21 [facility] is Referral Physician. pc 17:43 Discontinued lock intact, bleeding controlled, pressure dressing applied, No ja5 redness/swelling at site. 18:00 Chest, 2 View (pa\E\lat) Returned. EDMS 18:00 No procedures done that require assistance. ja5 Administered Medications: 15:48 CANCELLED (Patient Refused): Solu-MEDROL 125 mg IVP once pc 16:34 CANCELLED (Patient Refused): Albuterol-Ipratropium 1 neb Nebulizer every 20 minutes x3 pc Order Results: Lab Order: -Arterial Blood Gas; SPEC'M 08/11/16 15:45 Test: ABG pH (ARTERIAL); Value: 7.407; Range: 7.350-7.450; Units: UNITS; Status: F Test: ABG PARTIAL PRESSURE CO2; Value: 49.9; Range: 35.0-45.0; Abnormal: Above high normal; Units: mmHg; Status: F Test: ABG PARTIAL PRESSURE O2; Value: 80.0; Range: 75.0-100.0; Units: mmHg; Status: F Test: ABG TOTAL CO2; Value: 32.2; Range: 22.0-29.0; Abnormal: Above high normal; Units: MEQ/L; Status: F Test: ABG HCO3; Value: 30.7; Range: 22.0-26.0; Abnormal: Above high normal; Units: MEQ/L; Status: F Test: ABG BASE EXCESS; Value: 5.1; Range: -2.0-2.0; Abnormal: Above high normal; Status: F Test: ABG STANDARD HCO3; Value: 29.0; Range: 22.0-26.0; Abnormal: Above high normal; Units: MEQ/L; Status: F Test: ABG O2 SATURATION; Value: 96.9; Range: 95.0-99.0; Units: %; Status: F Test: ABG DEVICE; Value: NASAL PHANI; Status: F Lab Order: B-Type Natiuretic Peptide; SPEC' 08/11/16 16:27 Test: BRAIN NATRIURETIC PEPTIDE; Value: 32.0; Range: <100; Units: PG/ML; Status: F Lab Order: Basic Metabolic Profile; [facility]' 08/11/16 16:27 Test: GLUCOSE, FASTING; Value: 90; Range: 70-105; Units: MG/DL; Status: F Test: BLOOD UREA NITROGEN; Value: 8; Range: 7-18; Units: MG/DL; Status: F Test: CREATININE FOR GFR; Value: 0.90; Range: 0.55-1.02; Units: MG/DL; Status: F Test: GLOMERULAR FILTRATION RATE; Value: > 60.0; Range: >51; Status: F Test: SODIUM LEVEL; Value: 143; Range: 136-145; Units: MEQ/L; Status: F Test: POTASSIUM SERUM; Value: 3.9; Range: 3.5-5.1; Units: MEQ/L; Status: F Test: CHLORIDE LEVEL; Value: 107; Range: 98-107; Units: MEQ/L; Status: F Test: CARBON DIOXIDE LEVEL; Value: 29; Range: 21-32; Units: MEQ/L; Status: F Test: ANION GAP; Value: 7; Range: 8-16; Abnormal: Below low normal; Units: MEQ/L; Status: F Test: CALCIUM LEVEL; Value: 7.9; Range: 8.5-10.1; Abnormal: Below low normal; Units: MG/DL; Status: F Test Note: ; Units are mL/min/1.73 m2 Chronic Kidney Disease Staging per NKF: Stage I & II GFR >=60 Normal to Mildly Decreased Stage III GFR 30-59 Moderately Decreased Stage IV GFR 15-29 Severely Decreased Stage V GFR <15 Very Little GFR Left ESRD GFR <15 on PLAY WRITER Lab Order: CBC with Diff; SPEC'M 08/11/16 16:27 Test: WHITE BLOOD COUNT; Value: 6.8; Range: 4.0-10.0; Units: K/mm3; Status: F Test: RED BLOOD COUNT; Value: 3.81; Range: 4.00-5.40; Abnormal: Below low normal; Units: M/mm3; Status: F Test: HEMOGLOBIN; Value: 11.4; Range: 12.0-16.0; Abnormal: Below low normal; Units: g/dl; Status: F Test: HEMATOCRIT; Value: 36.1; Range: 36.0-47.0; Units: %; Status: F Test: MEAN CORPUSCULAR VOLUME; Value: 94.8; Range: 80.0-96.0; Units: fl; Status: F Test: MEAN CORPUSCULAR HEMOGLOBIN; Value: 29.8; Range: 27.0-33.0; Units: pg; Status: F Test: MEAN CORPUSCULAR HGB CONC; Value: 31.5; Range: 32.0-36.5; Abnormal: Below low normal; Units: g/dl; Status: F Test: RED CELL DISTRIBUTION WIDTH; Value: 13.2; Range: 11.5-14.5; Units: %; Status: F Test: PLATELET COUNT, AUTOMATED; Value: 387; Range: 150-450; Units: k/mm3; Status: F Test: NEUTROPHILS %; Value: 64.1; Range: 36.0-66.0; Units: %; Status: F Test: LYMPH %; Value: 26.7; Range: 24.0-44.0; Units: %; Status: F Test: MONO %; Value: 4.5; Range: 0.0-5.0; Units: %; Status: F Test: EOS %; Value: 3.1; Range: 0.0-3.0; Abnormal: Above high normal; Units: %; Status: F Test: BASO %; Value: 0.7; Range: 0.0-1.0; Units: %; Status: F Test: LARGE UNSTAINED CELL %; Value: 1.0; Range: 0.0-4.0; Units: %; Status: F Test: NEUTROPHILS #; Value: 4.3; Range: 1.8-7.7; Units: K/mm3; Status: F Test: LYMPH #; Value: 1.9; Range: 1.5-4.5; Units: K/mm3; Status: F Test: MONO #; Value: 0.3; Range: 0.0-0.8; Units: K/mm3; Status: F Test: EOS #; Value: 0.2; Range: 0.0-0.50; Units: K/mm3; Status: F Test: BASO #; Value: 0.0; Range: 0.0-0.2; Units: K/mm3; Status: F Test: LARGE UNSTAINED CELL #; Value: 0.1; Range: 0.0-0.4; Units: K/mm3; Status: F Radiology Order: Chest, 2 View (pa\E\lat) Test: Chest, 2 View (pa\E\lat) REASON FOR EXAMINATION: Cough; Clinical: Cough.; ; Technique: AP and lateral views.; ; Comparison: 07/10/2016.; ; Findings:; Mediastinum and cardiac silhouette are normal. Lateral chest x-ray demonstrates; blunting to the left posterior costophrenic angle suggesting small left lower; lobe atelectasis/pleural reaction. No pneumothorax. Skeletal structures; intact.; ; Impression:; Small left lower lobe atelectasis/pleural reaction.; ; ; Signed by; Lee Wolf MD 08/11/2016 04:51 P; Outcome: 17:22 Discharge ordered by Provider. 17:58 Discharge Assessment: Patient awake, alert and oriented x 3. No cognitive and/or ja5 functional deficits noted. Patient verbalized understanding of disposition instructions. Discharge Assessment:. 17:59 Discharge Assessment: patient administered narcotics - no. The following High Risk ja5 Discharge criteria are identified: None. Discharged to home via ambulance. Condition: stable. Discharge instructions given to patient, Instructed on discharge instructions, follow up and referral plans. Demonstrated understanding of instructions, Pt was receptive of discharge instructions/ teaching. No special radiology studies were completed. Property :Personal belongings accompany Pt. 18:01 Patient left the ED. [email or web address] Signatures: Dispatcher [employer] EDMS Diego Ramos MD MD pc Daly, Linda, Wiring Inspector Unit lbd Ashwini SantiagoRN RN jo3 Sumit Hernandez, Reg Reg kf3 Albert Beard, DEVEN SPA CONSULTANT Lisha Miller,RN RN yudi5 MTDD
--- NOTE | 2016-08-12 07:23 | ECGEPIP ---
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
--- NOTE | 2016-08-13 19:02 | EDDOCDS ---
Nurse's Notes [facility] Name: Katrin Alfred Age: 56 yrs Sex: Female : 1960 Arrival Date: 08/11/2016 Time: 15:23 Bed 17 Private MD: Shailesh Chu Diagnosis: Chronic obstructive pulmonary disease with (acute) exacerbation Presentation: 08/11 15:29 Presenting complaint: EMS states: Patient having difficulty breathing upon arrival, ja5 wheezing, edema to lower extremities. Patient states nausea and feeling lightheaded for three days. 20g left hand. Adult Sepsis Screening: The patient does not have new or worsening altered mentation. Patient's respiratory rate is less than 22. Systolic blood pressure is greater than 100. Patient has a qSOFA score of 0- Negative Sepsis Screen. Suicide/Homicide risk assessment- the patient denies having any suicidal and/or homicidal ideations and does not present with any other emotional, behavioral or mental health complaints. Status: Patient is not a financial services professional or dependent. Transition of care: patient was not received from another setting of care. 15:29 Acuity: TAMIA Level 3 ja5 15:29 Method Of Arrival: Ambulance ja5 Triage Assessment: 15:49 General: Appears uncomfortable. Pain: Denies pain. HIV screening NA for this visit ja5 Offered previously. Respiratory: Onset: The symptoms/episode began/occurred always short of breath. Historical: - Allergies: Augmentin (Hives); Cephalexin (Hives); Ciprofloxacin (Hives); CLAVULANIC ACID (Hives); Erythromycin (Hives); iopamidol (Hives); Methylprednisolone (Hives); Morphine (Hives); moxifloxacin (Hives); PENICILLINS (Hives); QUINOLONES (Hives); SULFA (SULFONAMIDES) (Hives); - Home Meds: 1. Albuterol Inhl 2 puffs as needed (Last dose: 08/11/2016 07:00) 2. aspirin 81 mg Oral tab 1 tab once daily (Last dose: 08/11/2016 07:00) 3. fluoxetine 40 mg Oral cap 1 cap once daily HOLDING FOR FIVE DAYS (Last dose: 08/09/2016) 4. furosemide 40 mg Oral tab 1 tab 2 times per day being held for five days (Last dose: 08/09/2016 07:00) 5. lamotrigine 100 mg Oral tab 1 tab once daily (Last dose: 08/11/2016 07:00) 6. loratadine 10 mg Oral TbDL 1 tab once daily (Last dose: 08/11/2016 07:00) 7. O2 2L NC (Last dose: 08/11/2016 15:00) 8. omeprazole 40 mg Oral cpDR 1 cap once daily (Last dose: 08/11/2016 07:00) 9. Percocet 5-325 mg Oral tab as needed (Last dose: 08/11/2016 12:00) 10. simvastatin 20 mg Oral tab 1 tab once daily (Last dose: 08/11/2016 07:00) 11. spironolactone 25 mg Oral tab once daily (Last dose: 08/11/2016 07:00) 12. trazodone 150 mg Oral tab nightly (Last dose: 08/10/2016 21:00) 13. warfarin 2 mg oral tab (Last dose: 08/11/2016 15:00) - PMHx: Anxiety; Asthma; CHF; COPD; Depression; DVT; GERD; Hypercholesterolemia; - PSHx: Bladder suspension; Cataract Surgery- Bilateral; Tonsillectomy; Hysterectomy; Hip Arthroplasty, Right; right foot blood clot removal; - The history from nurses notes was reviewed: but there are no nursing notes, or only partial notes available at the time of my charting. - Social history: Smoking status: Patient states former smoker of tobacco. No barriers to communication noted, The patient speaks fluent Nepali. - Hospitalizations: : The patient was recently seen at [facility], and discharged 4 week(s) ago. - : The pt / caregiver states he / she is on anticoagulants: coumadin. Home medication list is obtained from the patient. - Immunization history:: All immunizations up-to-date. - Exposure Risk Screening:: None identified. - Family history: Not pertinent. - Social history:: the patient is a former smoker, the patient does not drink alcohol. Screenin:26 Infection Control. lbd 15:52 Screening information is obtained from the patient. Fall risk: At risk due to prior ja5 history of falls. Assistance ADL's: Requires assistance with meal preparation, this assistance is provided by Home Health Aides, bathing, assistance is provided by Home Health Aides, housework, assistance is provided by Home Health Aides. Abuse/DV Screen: The patient / caregiver reports he/she is: not in a situation that causes fear, pain or injury. Nutritional screening: On no prescribed diet. Advance Directives: Currently, there is no health care proxy. There is no active DNR order. There is no living will. There is no Power of Ear Machine Operator. home support is adequate. Assessment: 15:54 General: Appears uncomfortable, Behavior is appropriate for age, cooperative. ja5 Neurological: Level of Consciousness is awake, alert, Oriented to person, place, time. Cardiovascular: Capillary refill < 3 seconds Heart tones S1 S2 present. Respiratory: Airway is patent Respiratory effort is even, unlabored, Breath sounds are diminished in right posterior upper lobe, right posterior middle lobe and right posterior lower lobe Breath sounds with wheezes expiratory in left posterior upper lobe and left posterior lower lobe. Derm: Skin is pink, warm & dry. 17:41 General: Appears in no apparent distress, Behavior is appropriate for age, cooperative. ja5 Neurological: Level of Consciousness is awake, alert, Oriented to person, place, time. Cardiovascular: Capillary refill < 3 seconds. Cardiovascular: Denies lightheadedness. Respiratory: Airway is patent Respiratory effort is even, unlabored. Respiratory: Denies shortness of breath at rest. Derm: Skin is pink, warm & dry. Vital Signs: 15:36 BP 106 / 70; Pulse 100; Resp 20; Temp 99.3(TE); Pulse Ox 98% on 2 lpm NC; Weight 104.78 ja5 kg; Height 5 ft. 6 in. (167.64 cm); Pain 0/10; 16:15 Pulse 96 MON; Pulse Ox 96% ; ja5 16:38 Pulse 92 MON; Pulse Ox 98% ; ja5 16:40 Pulse 92 MON; Pulse Ox 96% ; ja5 17:20 Pulse 90 MON; Pulse Ox 99% ; ja5 17:45 BP 110 / 66; Pulse 86; Resp 16 S; Temp 97.6(A); Pulse Ox 96% on 2 lpm NC; Pain 0/10; ja5 15:36 Body Mass Index 37.28 (104.78 kg, 167.64 cm) 5 Vitals: 15:49 Log In Time: August 11, 2016 at 15:36. 5 ED Course: 15:24 Patient visited by Renata Camacho, Senior Engineering Specialist. lbd 15:24 Patient moved to Waiting lbd 15:24 The patient / caregiver is instructed regarding the plan of care and ED course. ja5 15:25 Shailesh Chu DO is Private Physician. lbd 15:26 Ashwini Reyes, RN is Primary Nurse. lbd 15:26 Lisha Lopez,BRYNN is Primary Nurse. lbd 15:26 Diego Ramos MD is Attending Physician. pc 15:26 Patient moved to 17 lbd 15:35 Patient visited by Diego Ramos MD. pc 15:36 Triage Initiated ja5 15:56 EKG done. (by ED staff). Reviewed by Diego Ramos MD. jrd 16:30 -Blood Culture Sent. jo3 16:30 B-Type Natiuretic Peptide Sent. jo3 16:30 Basic Metabolic Profile Sent. jo3 16:30 CBC with Diff Sent. jo3 16:48 Patient visited by Lisha Lopez RN. ja5 16:48 Maintain field IV. Dressing intact. Good blood return noted. Site clean & dry. Gauge & ja5 site: 20g left hand. 17:13 Patient name changed from Katrin\S\M\S\Crosbie\S\ to Katrin\S\Ema\S\Crosbie. EDMS 17:19 ON LICENSE OF [facility] Payment Agreement was scanned into [employer] and attached to record. kf3 17:21 [facility] is Referral Physician. pc 17:43 Discontinued lock intact, bleeding controlled, pressure dressing applied, No ja5 redness/swelling at site. 18:00 Chest, 2 View (pa\E\lat) Returned. EDMS 18:00 No procedures done that require assistance. ja5 08/12 07:31 EKG-ADULT Returned. EDMS Administered Medications: 08/11 15:48 CANCELLED (Patient Refused): Solu-MEDROL 125 mg IVP once pc 16:34 CANCELLED (Patient Refused): Albuterol-Ipratropium 1 neb Nebulizer every 20 minutes x3 pc Order Results: Lab Order: -Arterial Blood Gas; SPEC'M 08/11/16 15:45 Test: ABG pH (ARTERIAL); Value: 7.407; Range: 7.350-7.450; Units: UNITS; Status: F Test: ABG PARTIAL PRESSURE CO2; Value: 49.9; Range: 35.0-45.0; Abnormal: Above high normal; Units: mmHg; Status: F Test: ABG PARTIAL PRESSURE O2; Value: 80.0; Range: 75.0-100.0; Units: mmHg; Status: F Test: ABG TOTAL CO2; Value: 32.2; Range: 22.0-29.0; Abnormal: Above high normal; Units: MEQ/L; Status: F Test: ABG HCO3; Value: 30.7; Range: 22.0-26.0; Abnormal: Above high normal; Units: MEQ/L; Status: F Test: ABG BASE EXCESS; Value: 5.1; Range: -2.0-2.0; Abnormal: Above high normal; Status: F Test: ABG STANDARD HCO3; Value: 29.0; Range: 22.0-26.0; Abnormal: Above high normal; Units: MEQ/L; Status: F Test: ABG O2 SATURATION; Value: 96.9; Range: 95.0-99.0; Units: %; Status: F Test: ABG DEVICE; Value: NASAL PHANI; Status: F Lab Order: -Blood Culture; SPEC 08/11/16 16: Test: BLOOD CULTURE; Value: No growth after 24 hours . All specimens observed; Status: F Test: BLOOD CULTURE; Value: for 5 days. Results final at that time.; Status: F Test: BLOOD CULTURE; Value: No Growth after 48 hours. All Specimens observed; Status: F Test: BLOOD CULTURE; Value: for 7 days. Results final at that time.; Status: F Lab Order: B-Type Natiuretic Peptide; SPEC' 08/11/16 16: Test: BRAIN NATRIURETIC PEPTIDE; Value: 32.0; Range: <100; Units: PG/ML; Status: F Lab Order: Basic Metabolic Profile; [facility] 08/11/16 16: Test: GLUCOSE, FASTING; Value: 90; Range: 70-105; Units: MG/DL; Status: F Test: BLOOD UREA NITROGEN; Value: 8; Range: 7-18; Units: MG/DL; Status: F Test: CREATININE FOR GFR; Value: 0.90; Range: 0.55-1.02; Units: MG/DL; Status: F Test: GLOMERULAR FILTRATION RATE; Value: > 60.0; Range: >51; Status: F Test: SODIUM LEVEL; Value: 143; Range: 136-145; Units: MEQ/L; Status: F Test: POTASSIUM SERUM; Value: 3.9; Range: 3.5-5.1; Units: MEQ/L; Status: F Test: CHLORIDE LEVEL; Value: 107; Range: 98-107; Units: MEQ/L; Status: F Test: CARBON DIOXIDE LEVEL; Value: 29; Range: 21-32; Units: MEQ/L; Status: F Test: ANION GAP; Value: 7; Range: 8-16; Abnormal: Below low normal; Units: MEQ/L; Status: F Test: CALCIUM LEVEL; Value: 7.9; Range: 8.5-10.1; Abnormal: Below low normal; Units: MG/DL; Status: F Test Note: ; Units are mL/min/1.73 m2 Chronic Kidney Disease Staging per NKF: Stage I & II GFR >=60 Normal to Mildly Decreased Stage III GFR 30-59 Moderately Decreased Stage IV GFR 15-29 Severely Decreased Stage V GFR <15 Very Little GFR Left ESRD GFR <15 on INSURANCE PREMIUM AUDITOR Lab Order: CBC with Diff; SPEC'M 08/11/16 16:27 Test: WHITE BLOOD COUNT; Value: 6.8; Range: 4.0-10.0; Units: K/mm3; Status: F Test: RED BLOOD COUNT; Value: 3.81; Range: 4.00-5.40; Abnormal: Below low normal; Units: M/mm3; Status: F Test: HEMOGLOBIN; Value: 11.4; Range: 12.0-16.0; Abnormal: Below low normal; Units: g/dl; Status: F Test: HEMATOCRIT; Value: 36.1; Range: 36.0-47.0; Units: %; Status: F Test: MEAN CORPUSCULAR VOLUME; Value: 94.8; Range: 80.0-96.0; Units: fl; Status: F Test: MEAN CORPUSCULAR HEMOGLOBIN; Value: 29.8; Range: 27.0-33.0; Units: pg; Status: F Test: MEAN CORPUSCULAR HGB CONC; Value: 31.5; Range: 32.0-36.5; Abnormal: Below low normal; Units: g/dl; Status: F Test: RED CELL DISTRIBUTION WIDTH; Value: 13.2; Range: 11.5-14.5; Units: %; Status: F Test: PLATELET COUNT, AUTOMATED; Value: 387; Range: 150-450; Units: k/mm3; Status: F Test: NEUTROPHILS %; Value: 64.1; Range: 36.0-66.0; Units: %; Status: F Test: LYMPH %; Value: 26.7; Range: 24.0-44.0; Units: %; Status: F Test: MONO %; Value: 4.5; Range: 0.0-5.0; Units: %; Status: F Test: EOS %; Value: 3.1; Range: 0.0-3.0; Abnormal: Above high normal; Units: %; Status: F Test: BASO %; Value: 0.7; Range: 0.0-1.0; Units: %; Status: F Test: LARGE UNSTAINED CELL %; Value: 1.0; Range: 0.0-4.0; Units: %; Status: F Test: NEUTROPHILS #; Value: 4.3; Range: 1.8-7.7; Units: K/mm3; Status: F Test: LYMPH #; Value: 1.9; Range: 1.5-4.5; Units: K/mm3; Status: F Test: MONO #; Value: 0.3; Range: 0.0-0.8; Units: K/mm3; Status: F Test: EOS #; Value: 0.2; Range: 0.0-0.50; Units: K/mm3; Status: F Test: BASO #; Value: 0.0; Range: 0.0-0.2; Units: K/mm3; Status: F Test: LARGE UNSTAINED CELL #; Value: 0.1; Range: 0.0-0.4; Units: K/mm3; Status: F Lab Order: BLOOD CULTURES; SPEC'M 08/11/16 16:53 Test: BLOOD CULTURE; Value: No growth after 24 hours . All specimens observed; Status: F Test: BLOOD CULTURE; Value: for 5 days. Results final at that time.; Status: F Test: BLOOD CULTURE; Value: No Growth after 48 hours. All Specimens observed; Status: F Test: BLOOD CULTURE; Value: for 7 days. Results final at that time.; Status: F Radiology Order: Chest, 2 View (pa\E\lat) Test: Chest, 2 View (pa\E\lat) REASON FOR EXAMINATION: Cough; Clinical: Cough.; ; Technique: AP and lateral views.; ; Comparison: 07/10/2016.; ; Findings:; Mediastinum and cardiac silhouette are normal. Lateral chest x-ray demonstrates; blunting to the left posterior costophrenic angle suggesting small left lower; lobe atelectasis/pleural reaction. No pneumothorax. Skeletal structures; intact.; ; Impression:; Small left lower lobe atelectasis/pleural reaction.; ; ; Signed by; Lee Wolf MD 08/11/2016 04:51 P; Radiology Order: EKG-ADULT Test: EKG-ADULT REASON FOR EXAMINATION: Shortness of Breath; Stationary ECG Study; [facility] - ED; ; Test Date: 2016-08-11; Pat Name: KATRIN ALFRED Department:; Room: -; Gender: F Scrub Technician: mitchell; : 1960 Requested By: Diego Marin; Order Number: [id number] Reading MD: Diego Ramos; Measurements; Intervals Mathews; Rate: 97 P: 58; WA: 186 QRS: 41; QRSD: 93 T: 43; QT: 325; QTc: 413; Interpretive Statements; SINUS RHYTHM; ; Electronically Signed On 08-12-2016 7:23:11 EST by Diego Ramos; Outcome: 17:22 Discharge ordered by Provider. pc 17:58 Discharge Assessment: Patient awake, alert and oriented x 3. No cognitive and/or ja5 functional deficits noted. Patient verbalized understanding of disposition instructions. Discharge Assessment:. 17:59 Discharge Assessment: patient administered narcotics - no. The following High Risk ja5 Discharge criteria are identified: None. Discharged to home via ambulance. Condition: stable. Discharge instructions given to patient, Instructed on discharge instructions, follow up and referral plans. Demonstrated understanding of instructions, Pt was receptive of discharge instructions/ teaching. No special radiology studies were completed. Property :Personal belongings accompany Pt. 18:01 Patient left the ED. ja5 Signatures: Dispatcher [employer] EDMS Diego Ramos MD MD pc Daly, Linda, Senior Engineering Specialist Unit lbd Ashwini Santiago,RN RN harvey3 Sumit Hernandez, Reg Reg kf3 Albert Beard, INSTRUMENT AND CONTROL TECHNICIAN INSTRUMENT AND CONTROL TECHNICIAN jrd Lisha Lopez,BRYNN SWAIN ja5 Chart Complete MTDD
--- NOTE | 2016-08-13 19:02 | EDDOCDS ---
Physician Documentation [facility] Name: Katrin Alfred Age: 56 yrs Sex: Female : 1960 Arrival Date: 08/11/2016 Time: 15:23 Bed 17 Private MD: Shailesh Chu Disposition: 08/11 17:20 Critical Care: Critical care not applicable. pc Disposition: 08/11/16 17:22 Discharged to Home/Self Care. Impression: Chronic obstructive pulmonary disease with (acute) exacerbation. - Condition is Stable. - Discharge Instructions: Chronic Obstructive Pulmonary Disease. - Medication Reconciliation, Local Pharmacy Hours form. - [facility] up: [facility]; When: Call to arrange an appointment; Reason: Continuance of care. - Problem is an acute exacerbation. - Symptoms have improved. HPI: 15:39 This 56 yrs old Female presents to ER via Ambulance with complaints of pc Breathing Difficulty. 15:39 The history is obtained from the patient, EMS providers. The patient presents with pc shortness of breath, with a prior history of COPD. The symptoms began gradually yesterday. The symptoms are continuous, and are unchanged since they started. There were no precipitating events that led to the current complaints. The patient has shortness of breath at rest, with light activity. At their worst, the symptoms were moderate. In the emergency department, the symptoms are mild. The patient's shortness of breath is aggravated by coughing, is alleviated by nebulizer treatment. The patient's dyspnea was accompanied with cough, productive, of yellow sputum. The patient has experienced similar episodes in the past, chronically. The patient has been recently been admitted at [facility], was discharged last month, for similar complaints. Historical: - Allergies: Augmentin (Hives); Cephalexin (Hives); Ciprofloxacin (Hives); CLAVULANIC ACID (Hives); Erythromycin (Hives); iopamidol (Hives); Methylprednisolone (Hives); Morphine (Hives); moxifloxacin (Hives); PENICILLINS (Hives); QUINOLONES (Hives); SULFA (SULFONAMIDES) (Hives); - Home Meds: 1. Albuterol Inhl 2 puffs as needed (Last dose: 08/11/2016 07:00) 2. aspirin 81 mg Oral tab 1 tab once daily (Last dose: 08/11/2016 07:00) 3. fluoxetine 40 mg Oral cap 1 cap once daily HOLDING FOR FIVE DAYS (Last dose: 08/09/2016) 4. furosemide 40 mg Oral tab 1 tab 2 times per day being held for five days (Last dose: 08/09/2016 07:00) 5. lamotrigine 100 mg Oral tab 1 tab once daily (Last dose: 08/11/2016 07:00) 6. loratadine 10 mg Oral TbDL 1 tab once daily (Last dose: 08/11/2016 07:00) 7. O2 2L NC (Last dose: 08/11/2016 15:00) 8. omeprazole 40 mg Oral cpDR 1 cap once daily (Last dose: 08/11/2016 07:00) 9. Percocet 5-325 mg Oral tab as needed (Last dose: 08/11/2016 12:00) 10. simvastatin 20 mg Oral tab 1 tab once daily (Last dose: 08/11/2016 07:00) 11. spironolactone 25 mg Oral tab once daily (Last dose: 08/11/2016 07:00) 12. trazodone 150 mg Oral tab nightly (Last dose: 08/10/2016 21:00) 13. warfarin 2 mg oral tab (Last dose: 08/11/2016 15:00) - PMHx: Anxiety; Asthma; CHF; COPD; Depression; DVT; GERD; Hypercholesterolemia; - PSHx: Bladder suspension; Cataract Surgery- Bilateral; Tonsillectomy; Hysterectomy; Hip Arthroplasty, Right; right foot blood clot removal; - The history from nurses notes was reviewed: but there are no nursing notes, or only partial notes available at the time of my charting. - Social history: Smoking status: Patient states former smoker of tobacco. No barriers to communication noted, The patient speaks fluent Kyrgyz. - Hospitalizations: : The patient was recently seen at [facility], and discharged 4 week(s) ago. - : The pt / caregiver states he / she is on anticoagulants: coumadin. Home medication list is obtained from the patient. - Immunization history:: All immunizations up-to-date. - Exposure Risk Screening:: None identified. - Family history: Not pertinent. - Social history:: the patient is a former smoker, the patient does not drink alcohol. ROS: 15:39 All systems are negative except as listed. The gastrointestinal and genitourinary pc components are also addressed in the HPI. Exam: 15:39 General Appearance: alert, the patient is in mild distress, anxious. pc 15:39 EENT: normal eye inspection, ears, nose and throat normal, pharynx normal, mucous membranes moist 15:39 Neck: normal inspection. 15:39 Respiratory: no pleuritic chest pain, speaks in full sentences, the patient is in mild respiratory distress, auscultation reveals wheezes, diffusely, decreased air entry noted left posterior lower lobe and right posterior lower lobe. 15:39 Cardiovascular: normal heart rate, normal rhythm, no jugular venous distension appreciated, no murmurs, no gallop, no friction rub, peripheral pulses full and equal bilaterally. 15:39 Abdomen: non-tender, non-distended, no organomegaly. 15:39 Skin: normal color, warm, dry. 15:39 Extremities: non-tender, normal range of motion of all joints, no pedal edema. 15:39 Neuro: alert, oriented to person, place and time, cranial nerves normal as tested, no motor deficits, no sensory deficits. 15:39 Psych: normal mood. Vital Signs: 15:36 BP 106 / 70; Pulse 100; Resp 20; Temp 99.3(TE); Pulse Ox 98% on 2 lpm NC; Weight 104.78 ja5 kg / 231 lbs; Height 5 ft. 6 in. (167.64 cm); Pain 0/10; 16:15 Pulse 96 MON; Pulse Ox 96% ; ja5 16:38 Pulse 92 MON; Pulse Ox 98% ; ja5 16:40 Pulse 92 MON; Pulse Ox 96% ; ja5 17:20 Pulse 90 MON; Pulse Ox 99% ; ja5 17:45 BP 110 / 66; Pulse 86; Resp 16 S; Temp 97.6(A); Pulse Ox 96% on 2 lpm NC; Pain 0/10; ja5 15:36 Body Mass Index 37.28 (104.78 kg, 167.64 cm) ja5 MDM: 15:36 -Blood Culture (Adults Only), peripheral from different site, or from device/port/PICC pc etc. if present ordered. 15:36 Call Respiratory ordered. pc 15:36 Student Loan Counselor/Pulse Ox/q 15 min VS ordered. pc 15:36 IV Saline Lock ordered. pc 15:36 Rhythm Strip to chart ordered. pc 15:36 Oxygen (enter rate/delivery method/parameters) ordered. pc 15:37 -Arterial Blood Gas Ordered. EDMS 15:37 B-Type Natiuretic Peptide Ordered. EDMS 15:38 Basic Metabolic Profile Ordered. EDMS 15:38 CBC with Diff Ordered. EDMS 15:38 -Blood Culture Ordered. EDMS 15:38 Chest, 2 View (pa\E\lat) Ordered. EDMS 15:38 ECG WITH READING ER PHYS+CARDIAG ordered. EDMS 15:39 Differential diagnosis: Chronic Obstructive Pulmonary Disease pneumonia. Plan: labs, pc meds, nebs, CXR, EKG. 15:40 Call Respiratory complete. jc4 15:42 -Blood Culture (Adults Only), peripheral from different site, or from device/port/PICC lbd etc. if present complete. 15:43 BLOOD CULTURES Ordered. EDMS 16:08 -Arterial Blood Gas Reviewed. pc 16:14 Test interpretation: EKG. pc 16:33 Financial registration complete. kf3 17:19 [facility] Payment Agreement was scanned into [employer] and attached to record. kf3 17:19 Basic Metabolic Profile Reviewed. pc 17:19 CBC with Diff Reviewed. pc 17:19 B-Type Natiuretic Peptide Reviewed. pc 17:20 Antibiotic administration: Not indicated, the patient does not have an appreciated pc infiltrate. Data reviewed: old medical records, vital signs, nurses notes, EKG(s), lab test results, all radiology studies and available results. Test interpretation: LAB - all labs as ordered have been reviewed, interpreted and considered in the overall management of the clinical presentation; X-RAY - interpreted by Radiologist and personally reviewed, 2 view chest, LLL atelectasis. The patient has been re-examined and re-evaluated. The patient's symptoms have mildly improved after treatment, but she has refused all nebs and meds. Physician consultation: Dr. Shailesh Chu DO regarding patient's condition, and will see patient in ED. Disposition: The historical points, examination findings, and any diagnostic results supporting the provided diagnosis, were discussed with the patient or legal guardian. The need for outpatient follow up with the provider listed on their discharge instructions was discussed. They were encouraged to return to [facility], or the nearest ED, if symptoms worsen/persist, or for any other questions/concerns. EC:14 Rate is 97 beats/min. Rhythm is regular, Normal Sinus Rhythm. QRS Vilas is Normal. LA pc interval is normal. QRS interval is normal. QT interval is normal. No Q waves. T waves are Normal. No ST changes noted. Clinical impression: Normal Sinus Rhythm. Administered Medications: 15:48 CANCELLED (Patient Refused): Solu-MEDROL 125 mg IVP once pc 16:34 CANCELLED (Patient Refused): Albuterol-Ipratropium 1 neb Nebulizer every 20 minutes x3 pc Signatures: Dispatcher [employer] EDMS Diego Ramos MD MD pc Daly, Linda, Art Instructor Unit lbd Sumit Hernandez, Reg Reg kf3 sAhwini Reyes RN RN jc4 Lisha Lopez RN RN ja5 The chart was reviewed and I authenticate all verbal orders and agree with the evaluation and treatment provided.Corrections: (The following items were deleted from the chart) 15:48 15:36 Solu-MEDROL 125 mg IVP once ordered. pc pc 16:34 15:36 Albuterol-Ipratropium 1 neb Nebulizer every 20 minutes x3 ordered. pc pc Attachments: 17:19 [facility] Payment Agreement kf3 Chart Complete MTDD
--- NOTE | 2016-08-13 19:02 | EDDOCDS ---
Physician Documentation [facility] Name: Katrin Alfred Age: 56 yrs Sex: Female : 1960 Arrival Date: 08/11/2016 Time: 15:23 Bed 17 Private MD: Shailesh Chu Disposition: 08/11 17:20 Critical Care: Critical care not applicable. pc Disposition: 08/11/16 17:22 Discharged to Home/Self Care. Impression: Chronic obstructive pulmonary disease with (acute) exacerbation. - Condition is Stable. - Discharge Instructions: Chronic Obstructive Pulmonary Disease. - Medication Reconciliation, Local Pharmacy Hours form. - Follow up: [facility]; When: Call to arrange an appointment; Reason: Continuance of care. - Problem is an acute exacerbation. - Symptoms have improved. HPI: 15:39 This 56 yrs old Female presents to ER via Ambulance with complaints of pc Breathing Difficulty. 15:39 The history is obtained from the patient, EMS providers. The patient presents with pc shortness of breath, with a prior history of COPD. The symptoms began gradually yesterday. The symptoms are continuous, and are unchanged since they started. There were no precipitating events that led to the current complaints. The patient has shortness of breath at rest, with light activity. At their worst, the symptoms were moderate. In the emergency department, the symptoms are mild. The patient's shortness of breath is aggravated by coughing, is alleviated by nebulizer treatment. The patient's dyspnea was accompanied with cough, productive, of yellow sputum. The patient has experienced similar episodes in the past, chronically. The patient has been recently been admitted at [facility], was discharged last month, for similar complaints. Historical: - Allergies: Augmentin (Hives); Cephalexin (Hives); Ciprofloxacin (Hives); CLAVULANIC ACID (Hives); Erythromycin (Hives); iopamidol (Hives); Methylprednisolone (Hives); Morphine (Hives); moxifloxacin (Hives); PENICILLINS (Hives); QUINOLONES (Hives); SULFA (SULFONAMIDES) (Hives); - Home Meds: 1. Albuterol Inhl 2 puffs as needed (Last dose: 08/11/2016 07:00) 2. aspirin 81 mg Oral tab 1 tab once daily (Last dose: 08/11/2016 07:00) 3. fluoxetine 40 mg Oral cap 1 cap once daily HOLDING FOR FIVE DAYS (Last dose: 08/09/2016) 4. furosemide 40 mg Oral tab 1 tab 2 times per day being held for five days (Last dose: 08/09/2016 07:00) 5. lamotrigine 100 mg Oral tab 1 tab once daily (Last dose: 08/11/2016 07:00) 6. loratadine 10 mg Oral TbDL 1 tab once daily (Last dose: 08/11/2016 07:00) 7. O2 2L NC (Last dose: 08/11/2016 15:00) 8. omeprazole 40 mg Oral cpDR 1 cap once daily (Last dose: 08/11/2016 07:00) 9. Percocet 5-325 mg Oral tab as needed (Last dose: 08/11/2016 12:00) 10. simvastatin 20 mg Oral tab 1 tab once daily (Last dose: 08/11/2016 07:00) 11. spironolactone 25 mg Oral tab once daily (Last dose: 08/11/2016 07:00) 12. trazodone 150 mg Oral tab nightly (Last dose: 08/10/2016 21:00) 13. warfarin 2 mg oral tab (Last dose: 08/11/2016 15:00) - PMHx: Anxiety; Asthma; CHF; COPD; Depression; DVT; GERD; Hypercholesterolemia; - PSHx: Bladder suspension; Cataract Surgery- Bilateral; Tonsillectomy; Hysterectomy; Hip Arthroplasty, Right; right foot blood clot removal; - The history from nurses notes was reviewed: but there are no nursing notes, or only partial notes available at the time of my charting. - Social history: Smoking status: Patient states former smoker of tobacco. No barriers to communication noted, The patient speaks fluent Wolof. - Hospitalizations: : The patient was recently seen at [facility], and discharged 4 week(s) ago. - : The pt / caregiver states he / she is on anticoagulants: coumadin. Home medication list is obtained from the patient. - Immunization history:: All immunizations up-to-date. - Exposure Risk Screening:: None identified. - Family history: Not pertinent. - Social history:: the patient is a former smoker, the patient does not drink alcohol. ROS: 15:39 All systems are negative except as listed. The gastrointestinal and genitourinary pc components are also addressed in the HPI. Exam: 15:39 General Appearance: alert, the patient is in mild distress, anxious. pc 15:39 EENT: normal eye inspection, ears, nose and throat normal, pharynx normal, mucous membranes moist 15:39 Neck: normal inspection. 15:39 Respiratory: no pleuritic chest pain, speaks in full sentences, the patient is in mild respiratory distress, auscultation reveals wheezes, diffusely, decreased air entry noted left posterior lower lobe and right posterior lower lobe. 15:39 Cardiovascular: normal heart rate, normal rhythm, no jugular venous distension appreciated, no murmurs, no gallop, no friction rub, peripheral pulses full and equal bilaterally. 15:39 Abdomen: non-tender, non-distended, no organomegaly. 15:39 Skin: normal color, warm, dry. 15:39 Extremities: non-tender, normal range of motion of all joints, no pedal edema. 15:39 Neuro: alert, oriented to person, place and time, cranial nerves normal as tested, no motor deficits, no sensory deficits. 15:39 Psych: normal mood. Vital Signs: 15:36 BP 106 / 70; Pulse 100; Resp 20; Temp 99.3(TE); Pulse Ox 98% on 2 lpm NC; Weight 104.78 ja5 kg / 231 lbs; Height 5 ft. 6 in. (167.64 cm); Pain 0/10; 16:15 Pulse 96 MON; Pulse Ox 96% ; ja5 16:38 Pulse 92 MON; Pulse Ox 98% ; ja5 16:40 Pulse 92 MON; Pulse Ox 96% ; ja5 17:20 Pulse 90 MON; Pulse Ox 99% ; ja5 17:45 BP 110 / 66; Pulse 86; Resp 16 S; Temp 97.6(A); Pulse Ox 96% on 2 lpm NC; Pain 0/10; ja5 15:36 Body Mass Index 37.28 (104.78 kg, 167.64 cm) ja5 MDM: 15:36 -Blood Culture (Adults Only), peripheral from different site, or from device/port/PICC pc etc. if present ordered. 15:36 Call Respiratory ordered. pc 15:36 Veneer Manufacturer/Pulse Ox/q 15 min VS ordered. pc 15:36 IV Saline Lock ordered. pc 15:36 Rhythm Strip to chart ordered. pc 15:36 Oxygen (enter rate/delivery method/parameters) ordered. pc 15:37 -Arterial Blood Gas Ordered. EDMS 15:37 B-Type Natiuretic Peptide Ordered. EDMS 15:38 Basic Metabolic Profile Ordered. EDMS 15:38 CBC with Diff Ordered. EDMS 15:38 -Blood Culture Ordered. EDMS 15:38 Chest, 2 View (pa\E\lat) Ordered. EDMS 15:38 ECG WITH READING ER PHYS+CARDIAG ordered. EDMS 15:39 Differential diagnosis: Chronic Obstructive Pulmonary Disease pneumonia. Plan: labs, pc meds, nebs, CXR, EKG. 15:40 Call Respiratory complete. jc4 15:42 -Blood Culture (Adults Only), peripheral from different site, or from device/port/PICC lbd etc. if present complete. 15:43 BLOOD CULTURES Ordered. EDMS 16:08 -Arterial Blood Gas Reviewed. pc 16:14 Test interpretation: EKG. pc 16:33 Financial registration complete. kf3 17:19 [facility] Payment Agreement was scanned into [employer] and attached to record. kf3 17:19 Basic Metabolic Profile Reviewed. pc 17:19 CBC with Diff Reviewed. pc 17:19 B-Type Natiuretic Peptide Reviewed. pc 17:20 Antibiotic administration: Not indicated, the patient does not have an appreciated pc infiltrate. Data reviewed: old medical records, vital signs, nurses notes, EKG(s), lab test results, all radiology studies and available results. Test interpretation: LAB - all labs as ordered have been reviewed, interpreted and considered in the overall management of the clinical presentation; X-RAY - interpreted by Radiologist and personally reviewed, 2 view chest, LLL atelectasis. The patient has been re-examined and re-evaluated. The patient's symptoms have mildly improved after treatment, but she has refused all nebs and meds. Physician consultation: Dr. Shailesh Chu DO regarding patient's condition, and will see patient in ED. Disposition: The historical points, examination findings, and any diagnostic results supporting the provided diagnosis, were discussed with the patient or legal guardian. The need for outpatient follow up with the provider listed on their discharge instructions was discussed. They were encouraged to return to [facility], or the nearest ED, if symptoms worsen/persist, or for any other questions/concerns. EC:14 Rate is 97 beats/min. Rhythm is regular, Normal Sinus Rhythm. QRS [place] is Normal. [place] pc interval is normal. QRS interval is normal. QT interval is normal. No Q waves. T waves are Normal. No ST changes noted. Clinical impression: Normal Sinus Rhythm. Administered Medications: 15:48 CANCELLED (Patient Refused): Solu-MEDROL 125 mg IVP once pc 16:34 CANCELLED (Patient Refused): Albuterol-Ipratropium 1 neb Nebulizer every 20 minutes x3 pc Signatures: Dispatcher [employer] EDMS Diego Ramos MD MD pc Daly, Linda, Wall Covering Installer Unit lbd Sumit Hernandez, Reg Reg kf3 Ashwini Reyes RN RN jc4 Lisha Lopez RN RN ja5 The chart was reviewed and I authenticate all verbal orders and agree with the evaluation and treatment provided.Corrections: (The following items were deleted from the chart) 15:48 15:36 Solu-MEDROL 125 mg IVP once ordered. pc pc 16:34 15:36 Albuterol-Ipratropium 1 neb Nebulizer every 20 minutes x3 ordered. pc pc Attachments: 17:19 [facility] Payment Agreement kf3 Chart Complete MTDD
== END 2016-08-11 18:01 | disposition home or self-care (01) ==
LOC: M ED 15:23
DX: J44.1 Chronic obstructive pulmonary disease with (acute) exacerbation (principal); I50.9 Heart failure, unspecified; F41.9 Anxiety disorder, unspecified; F32.9 Major depressive disorder, single episode, unspecified; K21.9 Gastro-esophageal reflux disease without esophagitis; E78.00 Pure hypercholesterolemia, unspecified; Z86.718 Personal history of other venous thrombosis and embolism; Z79.899 Other long term (current) drug therapy; Z79.01 Long term (current) use of anticoagulants; Z79.82 Long term (current) use of aspirin; Z99.81 Dependence on supplemental oxygen; Z88.0 Allergy status to penicillin; Z88.1 Allergy status to other antibiotic agents; Z88.2 Allergy status to sulfonamides; Z88.5 Allergy status to narcotic agent; Z88.8 Allergy status to other drugs, medicaments and biological substances; Z87.891 Personal history of nicotine dependence

== ENCOUNTER → 2016-09-13 | Outpatient (REF) | payer OTHER ==
[~2016-09-13] MED LIST changes: -COLA100C PO; +COLA100C3 PO
== END ==
LOC: M SFHCPLAZ 11:33
PROVIDERS: ATTEND Family Medicine
DX: I50.32 Chronic diastolic (congestive) heart failure (principal); Z53.8 Procedure and treatment not carried out for other reasons

== ENCOUNTER → 2016-09-21 | Outpatient (REF) | payer OTHER ==
[2016-09-21 11:26] LABS: ANION GAP 6 MEQ/L (8-16); BLOOD UREA NITROGEN 13 MG/DL (7-18); CALCIUM LEVEL 9.2 MG/DL (8.5-10.1); CARBON DIOXIDE LEVEL 33 MEQ/L (21-32); CHLORIDE LEVEL 101 MEQ/L (98-107); CREATININE FOR GFR 0.98 MG/DL (0.55-1.02); GLOMERULAR FILTRATION RATE > 60.0 (>51); GLUCOSE, FASTING 95 MG/DL (70-105); SODIUM LEVEL 140 MEQ/L (136-145)
== END ==
LOC: M LAB REF 11:11
PROVIDERS: ATTEND Family Medicine
DX: I50.32 Chronic diastolic (congestive) heart failure (principal)

== ENCOUNTER → 2016-10-24 | Outpatient (REF) | payer OTHER ==
[2016-10-24 18:02] LABS: INR 3.98
== END ==
LOC: M SFHCPLAZ 16:29
PROVIDERS: ATTEND Family Medicine
DX: Z79.01 Long term (current) use of anticoagulants (principal)

== ENCOUNTER → 2016-10-29 | Outpatient (REF) | payer OTHER | LOC: M SFHCADAM 16:28 | PROVIDERS: ATTEND Family Medicine | DX: Z79.01 Long term (current) use of anticoagulants (principal); Z53.9 Procedure and treatment not carried out, unspecified reason ==

== ENCOUNTER 2016-11-23 10:11 | Inpatient (IN) | payer OTHER ==
[~2016-11-23] VITALS: Ht 157.5 cm; Wt 104.2 kg
[2016-11-23] MEDS ORDERED: IPRATROPIUM 0.5MG/ALBUTEROL 2.5MG INH SOL UD 3ML (DUONEB)(J7620) NEB ONE (10:30)
[2016-11-23] MEDS ORDERED: oxygen (10:53)
[2016-11-23] MEDS ORDERED: TORS20TA2 PO (10:53)
[2016-11-23 10:54] LABS: BASO # 0.1 K/mm3 (0.0-0.2); EOS # 0.3 K/mm3 (0.0-0.50); LARGE UNSTAINED CELL # 0.1 K/mm3 (0.0-0.4); LARGE UNSTAINED CELL % 1.1 % (0.0-4.0); LYMPH # 1.7 K/mm3 (1.5-4.5); LYMPH % 24.3 % (24.0-44.0); MEAN CORPUSCULAR HEMOGLOBIN 30.1 pg (27.0-33.0); MEAN CORPUSCULAR HGB CONC 31.8 g/dl (32.0-36.5); MEAN CORPUSCULAR VOLUME 94.7 fl (80.0-96.0); MONO # 0.3 K/mm3 (0.0-0.8); MONO % 4.8 % (0.0-5.0); NEUTROPHILS # 4.4 K/mm3 (1.8-7.7); NEUTROPHILS % 64.8 % (36.0-66.0); PLATELET COUNT, AUTOMATED 245 k/mm3 (150-450); RED CELL DISTRIBUTION WIDTH 13.3 % (11.5-14.5); WHITE BLOOD COUNT 6.7 K/mm3 (4.0-10.0)
[2016-11-23] MEDS ORDERED: predniSONE 20 MG TAB PO ONE (11:30)
[2016-11-23 11:33] LABS: ANION GAP 1 MEQ/L (8-16); BLOOD UREA NITROGEN 14 MG/DL (7-18); CALCIUM LEVEL 9.8 MG/DL (8.5-10.1); CARBON DIOXIDE LEVEL 39 MEQ/L (21-32); CHLORIDE LEVEL 97 MEQ/L (98-107); CREATININE FOR GFR 1.06 MG/DL (0.55-1.02); GLOMERULAR FILTRATION RATE 56.7 (>51); GLUCOSE, FASTING 109 MG/DL (70-105); SODIUM LEVEL 137 MEQ/L (136-145)
[2016-11-23] MEDS ORDERED: ALBUTEROL SULFATE 2.5 MG/0.5 ML INH NEB SOLN NEB ONE ×2 (11:45→14:15)
--- NOTE | 2016-11-23 11:45 | REP ---
Chest x-ray: Two views. History: Dyspnea and cough. Comparison study August 11, 2016. Findings: Oxygen delivery tubing and EKG monitoring electrodes overlie the chest. The lungs are well inflated and free of infiltrate. The pleural angles are sharp. Heart size is normal. Pulmonary vasculature is not increased. No significant bony abnormality is seen. Impression: No active disease. Signed by Braden Garrett MD 11/23/2016 12:48 P
[2016-11-23] MEDS ORDERED: TORSEMIDE 20 MG TAB PO ONE (12:30)
[2016-11-23] MEDS ORDERED: SPIRONOLACTONE 25 MG TAB PO ONE (12:30)
[2016-11-23] MEDS ORDERED: PERCOCET 5MG/325MG TAB PO ONE (13:00)
[2016-11-23 14:37] LABS: INR 1.8
[2016-11-23] MEDS ORDERED: ACETAMINOPHEN TAB 650MG DOSE (2X325MG) PO PRN (15:00)
[2016-11-23] MEDS ORDERED: BISACODYL 5 MG TAB PO PRN (15:00)
[2016-11-23] MEDS ORDERED: ASPI81TA7 PO (15:17)
[2016-11-23] MEDS ORDERED: WARF4TAB52 PO (15:17)
[2016-11-23] MEDS ORDERED: WARF4TAB51 PO (15:17)
[2016-11-23] MEDS ORDERED: IPRATROPIUM 0.5MG/ALBUTEROL 2.5MG INH SOL UD 3ML (DUONEB)(J7620) INH PRN (15:30)
[2016-11-23] MEDS ORDERED: NITROGLYCERIN 0.4 MG SUBL TABLET SL PRN (15:30)
[2016-11-23] MEDS ORDERED: ALBUTEROL 90 MCG/ACT 8GM HFA INHALER INH PRN (15:30)
[2016-11-23] MEDS: IPRATROPIUM 0.5MG/ALBUTEROL 2.5MG INH SOL UD 3ML (DUONEB)(J7620) NEB PRN (16:28)
[2016-11-23 17:00] VITALS: BP 122/70
[2016-11-23] MEDS ORDERED: FUROSEMIDE 20 MG/2 ML VIAL (J1940) IV SCH (17:00)
[2016-11-23] MEDS: POTASSIUM CHLORIDE 10 MEQ SR TABLET PO SCH (17:58)
[2016-11-23] MEDS: WARFARIN SOD 2 MG TAB PO SCH (17:59)
[2016-11-23] MEDS: VITAMIN D 1,000 INTERNATIONAL UNITS TABLET PO SCH (17:59)
[2016-11-23] MEDS: ASPIRIN 81 MG ENTERIC TAB PO SCH (17:59)
[2016-11-23] MEDS ORDERED: ENOXAPARIN 30 MG/0.3 ML SYR (J1650) SC SCH (18:00)
[2016-11-23] MEDS: IPRATROPIUM 0.5MG/ALBUTEROL 2.5MG INH SOL UD 3ML (DUONEB)(J7620) NEB SCH (19:41)
[2016-11-23] MEDS: PERCOCET 5MG/325MG TAB PO PRN (20:34)
[2016-11-23] MEDS: SIMVASTATIN 20 MG TAB PO SCH (20:34)
[2016-11-23] MEDS: SENNA 8.6 MG TAB (SENOKOT) PO SCH (20:34)
[2016-11-23] MEDS: OMEPRAZOLE 20 MG CAP PO SCH (20:35)
[2016-11-23] MEDS: ALPRAZolam 0.5 MG TAB PO SCH (20:35)
[2016-11-23] MEDS: traZODone 50 MG TAB PO SCH (21:51)
[2016-11-23 22:00] VITALS: BP 118/77
--- NOTE | 2016-11-23 22:46 | HPE ---
DATE OF ADMISSION: 11/23/2016 PRIMARY CARE PHYSICIAN: Dr. Chu PROTEOMICS SCIENTIST: Dr. Apple PRETZEL COOKER: Patient sees cabin man in [place]; however, patient cannot remember the name. CODE STATUS: Patient expressed that she would like to speak with her daughter before making a decision about her code status. CHIEF COMPLAINT: Shortness of breath and increase of coughing with more production of sputum. HISTORY OF PRESENT ILLNESS: Ms. Alfred is a 56-year-old female with multiple past medical history who presented to emergency room (ER) due to experiencing shortness of breath exacerbation. Patient expressed that patient has been diagnosed with chronic obstructive pulmonary disease (COPD) and is on 2 liters of oxygen 24/7 days a week; however, last afternoon she started noticing to be more out of breath. Patient did not increase the oxygenation; however, patient increased use of breathing treatment; however, her shortness of breath did not discharge. Patient went to see her primary care physician, who, according to her, told her that this is a viral infection, and patient was sent home and was told to come back to the office if she does not get better in one week. Patient expressed that her symptoms became worse, and she started producing cough with dark yellow sputum as well as yellow. Patient has orthopnea; however, patient reported that her orthopnea has increased. Also patient reported multiple episodes of paroxysmal nocturnal dyspnea (PND). Patient is not sure if she has experienced fever; however, patient has chills and night sweats. Last night patient expressed that she woke up with shortness of breath, and the inhaler did not help her. Patient was very scared, and therefore she came to the ER. Patient denies sick contacts. Patient also expressed that she feels fatigued since Sunday, and she also experienced lightheadedness and dizziness. Patient also expressed that she uses a walker, and her ambulation distance has decreased due to the weakness and being out of breath. ALLERGIES: 1. KEFLEX causes rash. 2. MORPHINE SULFATE causes dyspnea. 3. AVELOX causes hives. 4. AUGMENTIN causes hives. 5. ERYTHROMYCIN causes hives. 6. SULFASALAZINE causes hives. 7. NEURONTIN causes gastrointestinal (GI) disturbance. 8. AZITHROMYCIN causes belly pain. PAST MEDICAL HISTORY: 1. COPD. Spirometry in May 2013 indicated FEV1 of 24%. 2. Bilateral deep vein thrombosis (DVT) with pulmonary embolism (PE) March 2013. 3. Pulmonary hypertension. 4. Grade 1 diastolic heart failure, echo recently done by Dr. Apple on 08/01/2016. 5. Hypertension. 6. Hypercholesterolemia, controlled since December 2012. 7. Negative nuclear stress test (NST) April 2012, [facility] . 8. Depression. 9. Anxiety. 10. Esophageal reflux. 11. Degenerative disc disease (DDD) of the neck. 12. Cataracts. 13. Mechanical fall. 14. A 6 mm lung nodule on CT of June 2013. 15. History of blood transfusion secondary to anemia. 16. Glossitis. 17. Closed fracture of unspecified part of forearm. SURGICAL HISTORY: 1. Partial hysterectomy. 2. Hip replacement, right. 3. Bladder surgery due to urinary incontinence. 4. Tonsillectomy. 5. Adenoidectomy. 6. Cardiac catheterization. 7. Debridement to muscle in foot secondary to hematoma. 8. Incision and drainage (I and D) with a wound vacuum-assisted closure (VAC) in October 2013 in the left lower extremity. HOME MEDICATIONS: - Ventolin HFA two puffs inhaled every 4 hours as needed shortness of breath - ipratropium bromide albuterol one solution inhaler every 4 hours as needed shortness of breath - alprazolam 1 mg by mouth twice a day - aspirin 81 mg by mouth daily - vitamin D3 at 2000 units by mouth daily - Lamotrigine 150 mg by mouth daily - Asmanex HFA 200 mcg inhaler at bedtime - Nitrostat 0.4 mg sublingual every 5 minutes as needed for chest pain - omeprazole 4 mg by mouth twice a day - Percocet one tablet by mouth every 6 as needed - potassium chloride 40 mEq by mouth daily - senna Lax two tablets by mouth at bedtime - Zocor 20 mg by mouth at bedtime - Aldactone 50 mg by mouth daily - torsemide 40 mg by mouth daily - trazodone 150 mg by mouth at bedtime - warfarin 1 mg on Mondays and Fridays and 2 mg on Sundays, Tuesdays, Wednesdays, , and Saturdays REVIEW OF SYSTEMS: GENERAL: Patient does not know if she has fever; however, patient has chills and night sweats. Patient, however, believes that she has gained some weight. HEENT: Patient experiences headache, lightheadedness, and dizziness during her dyspnea. Patient denies acute vision or hearing changes. Patient also denies problem with chewing food or sinusitis. NECK: Patient denies lumps, bumps, or decreased range of motion of her neck. HEART: Patient denies palpitations, racing or skipping heartbeat, or chest pain; however, patient expressed that she had mild pressure on her chest in the middle of her chest, mostly during coughing. PULMONARY: Patient expressed that her cough has been increased since Sunday with production of dark green and yellow sputum. Patient also has dyspnea exacerbation. ABDOMEN: Patient denies abdominal pain, nausea, vomiting, diarrhea, constipation, melena, hematochezia, hemoptysis. NEUROLOGIC: Patient denies history of transient ischemic attack (TIA), cerebrovascular accident (CVA), or seizure-type activities. PHYSICAL EXAMINATION: VITAL SIGNS: Temperature 100.6, pulse 108, respiratory rate 22, blood pressure 154/64, pulse oximetry 98 on 2 liters nasal cannula. GENERAL APPEARANCE: Patient was lying in bed in no acute distress. Patient was awake, alert, and oriented to time, place, and person. HEENT: Normocephalic, atraumatic. Pupils are equal and reactive to light. Oral mucosa is moist. NECK: Soft, supple. No lymphadenopathy. No thyromegaly; however, jugular venous distention (JVD) cannot be obtained due to patient's extended neck. HEART: Regular rate and rhythm. Normal S1, S2. ABDOMEN: Soft, nontender. Positive bowel sounds in all quadrants and obese. LUNGS: Patient has scattered rhonchi at the base of the lungs. Patient also has mild wheezing on both inhale and exhale. NEUROLOGIC: Cranial nerves II-XII were intact. No focal deficiencies. EXTREMITIES: Patient has tenderness to palpation in both lower extremities, possibly secondary to history of deep vein thrombosis (DVT). Patient has pitting edema in both lower extremities. Patient has decreased range of motion on the left lower extremity compared to the right lower extremity secondary to pain; however, patient has normal sensation in both upper and lower extremities. LABORATORY DATA: White blood cells 6.7, red blood cells 4.19, hemoglobin 12.6, hematocrit 39.7, MCV 94.7, MCH 30.1, MCHC 31.8, RDW 13.3, platelet count 245, neutrophil percentage 64.8, lymphocyte percentage 24.3, monocyte percentage 4.8, eosinophil percentage 4, basophil percentage 1, leukocyte percentage 1.1. PT 21, INR 1.8, APTT 35.6. D-dimer 270. Sodium 137, potassium 4, chloride 97, carbon dioxide 39, anion gap 1, BUN 14, creatinine 1.06, glomerular filtration rate 56.7, fasting glucose 109, lactic acid 1.3, calcium 9.8, total creatine kinase 70, CK-MB 1.8, CK-MB relative index 2.57. Troponin I less than 0.02. BNP 6.5. Blood culture pending. IMAGING: Chest x-ray shows no acute disease. ASSESSMENT AND PLAN: 1. Dyspnea. This is multifactorial possibly secondary to diastolic congestive heart failure versus chronic obstructive pulmonary disease (COPD) exacerbation. At this time, we have started patient on breathing treatment. Also I have started patient on prednisone 40 mg daily, since patient has allergy to methylprednisolone. Will continue patient on breathing treatment. Also I have ordered a sputum culture and Gram statin as well as respiratory panel, and the result is pending at this time. Also, we will continue patient on the home dosage of medication, and I add Lasix 20 mg twice a day intravenous (IV) with holding parameters. Patient's last echo as done by Dr. Apple on 08/01/2016, which indicated left ventricular ejection fraction (LVEF) of 65-70%. Also we will continue patient on oxygen. At this time is on baseline, which is 2 liters 24 hours. Also, due to the previous medical history of deep vein thrombosis (DVT), we have ordered D-dimer, which was negative; therefore, CT angiogram was not performed. 2. COPD exacerbation. We will continue patient on breathing treatment and prednisone. Sputum culture and Gram as well as respiratory panel is pending. Also we will continue patient on oxygen with the saturation of 88-92%; however, patient at this time is on her baseline. 3. Congestive heart failure. We will continue patient on torsemide, spironolactone. Also I have added Lasix 20 mg IV twice a day with holding parameters. Patient is not on beta karri. 4. Hypertension. We will continue patient on the home dosage of torsemide and spironolactone. I have started patient on Lasix IV. 5. Anxiety. We will continue patient on home dosage of Xanax 1 mg by mouth twice a day. 6. Depression. Patient is stable at this time. We will continue to monitor patient for any abnormal symptoms. 7. History of DVT. Patient had a history of lower extremity DVT twice. Patient is on warfarin. We will continue patient with the home dosage, and we will check the PT, INR; however, today patient's INR is not therapeutic. We will continue to monitor tomorrow. Patient is on warfarin; however, patient's INR level is not therapeutic; therefore, I have started patient on Lovenox, and after patient's warfarin becomes therapeutic, we will stop the Lovenox. 8. History of insomnia. We will continue patient on trazodone 150 mg by mouth at bedtime. My preceptor for this patient encounter was Dr. Alexander Knowles. The preceptor was physically present in the building during the encounter and was fully available as needed. All aspects of the patient interview, examination, medical decision making process, and medical care plan development were reviewed and approved by the preceptor. The preceptor is aware and concurs with the plan as stated in the body of this note and will attest to such by his/her co-signature.
[2016-11-24] MEDS: IPRATROPIUM 0.5MG/ALBUTEROL 2.5MG INH SOL UD 3ML (DUONEB)(J7620) NEB SCH ×4 (01:20→19:43)
[2016-11-24] MEDS: PERCOCET 5MG/325MG TAB PO PRN ×4 (04:58→23:04)
[2016-11-24] MEDS: IPRATROPIUM 0.5MG/ALBUTEROL 2.5MG INH SOL UD 3ML (DUONEB)(J7620) NEB PRN ×3 (05:09→15:29)
[2016-11-24 06:00] VITALS: BP 115/78
[2016-11-24 07:04] LABS: BASO % 0.2 % (0.0-1.0); EOS % 0.2 % (0.0-3.0); LARGE UNSTAINED CELL % 0.9 % (0.0-4.0); LYMPH # 0.8 K/mm3 (1.5-4.5); MEAN CORPUSCULAR HEMOGLOBIN 29.9 pg (27.0-33.0); MEAN CORPUSCULAR HGB CONC 31.7 g/dl (32.0-36.5); MEAN CORPUSCULAR VOLUME 94.2 fl (80.0-96.0); MONO # 0.2 K/mm3 (0.0-0.8); MONO % 5.3 % (0.0-5.0); NEUTROPHILS # 3.6 K/mm3 (1.8-7.7); NEUTROPHILS % 77.5 % (36.0-66.0); PLATELET COUNT, AUTOMATED 219 k/mm3 (150-450); RED CELL DISTRIBUTION WIDTH 13.3 % (11.5-14.5); WHITE BLOOD COUNT 4.6 K/mm3 (4.0-10.0)
[2016-11-24 07:13] LABS: INR 1.6
[2016-11-24 07:18] LABS: ALBUMIN 3.2 GM/DL (3.2-5.2); ALBUMIN/GLOBULIN RATIO 0.78 (1.00-1.93); BILIRUBIN,TOTAL 0.3 MG/DL (0.2-1.0); CREATININE FOR GFR 1.07 MG/DL (0.55-1.02); GLOMERULAR FILTRATION RATE 56.1 (>51); MAGNESIUM LEVEL 2.3 MG/DL (1.8-2.4); POTASSIUM SERUM 4.5 MEQ/L (3.5-5.1); TOTAL PROTEIN 7.3 GM/DL (6.4-8.2)
[2016-11-24] MEDS: ALPRAZolam 0.5 MG TAB PO SCH ×2 (08:43→20:24)
[2016-11-24] MEDS: predniSONE 20 MG TAB PO SCH (08:43)
[2016-11-24] MEDS: ASPIRIN 81 MG ENTERIC TAB PO SCH (08:43)
[2016-11-24] MEDS: POTASSIUM CHLORIDE 10 MEQ SR TABLET PO SCH (08:43)
[2016-11-24] MEDS: SPIRONOLACTONE 50 MG TAB PO SCH (08:44)
[2016-11-24] MEDS: VITAMIN D 1,000 INTERNATIONAL UNITS TABLET PO SCH (08:44)
[2016-11-24] MEDS: TORSEMIDE 20 MG TAB PO SCH (08:44)
[2016-11-24] MEDS: OMEPRAZOLE 20 MG CAP PO SCH ×2 (08:44→20:23)
[2016-11-24 14:00] VITALS: BP 98/97
--- NOTE | 2016-11-24 14:56 | IPNPDOC ---
Subjective Date Seen The patient was seen on 11/24/16. Subjective Chief Complaint/HPI The patient is a 56-year-old female admitted with a reason for visit of Copd W/ Acute Exacerbation. Events since last encounter Has cough, sputum production has tapered off, still feels as though there is more sputum to produce, tolerating diet, no chest pain, did not sleep well last night Constitutional: Denies: Chills, Fever Pulmonary: Reports: Dyspnea, Cough Cardiovascular: Denies: Chest Pain, Palpitations Gastrointestinal: Denies: Nausea, Vomiting, Abdominal Pain Objective Physical Examination General Exam: Positive: Alert, Cooperative, No Acute Distress Eye Exam: Negative: Sclera icteric ENT Exam: Positive: Mucous membr. moist/pink Chest Exam: Positive: Wheezing (diffuse polyphonic), Diminished (I:E 1:4) Heart Exam: Positive: Rate Normal, Normal S1, Normal S2, Negative: Murmurs Abdomen Exam: Positive: Normal bowel sounds, Soft, Negative: Tenderness Extremity Exam: Negative: Edema Assessment /Plan Problems (1) COPD (chronic obstructive pulmonary disease) Status: Acute Problem Specific Plan: Monitor Clinically Problem Text: Steroids, aggressive pulmonary toilet Malclearance of secretions- acapella ordered Case discussed with respiratory therapy at bedside (2) Diastolic CHF, chronic Status: Chronic Problem Text: Appears compensated on my exam (3) Lung nodule Status: Chronic (4) HTN (hypertension) Status: Chronic Problem Specific Plan: Monitor Clinically (5) GERD (gastroesophageal reflux disease) Status: Chronic (6) Anxiety Status: Chronic Plan/VTE VTE Prophylaxis Ordered?: Yes VS, I&O, [facility] Vital Signs/I&O Vital Signs Date Time Temp Pulse Resp B/P (MAP) Pulse Ox O2 Delivery O2 Flow Rate FiO2 11/24/16 11:35 20 11/24/16 06:00 98.2 103 115/78 (90) 98 Nasal Cannula 2.0 11/23/16 10:20 96 I&O- Last 24 Hours up to 6 AM 11/24/16 06:00 Intake Total 0 ml Output Total 750 ml Balance -750 ml Laboratory Data 24H LABS Laboratory Tests 2 11/23/16 16:29: Total Creatine Kinase 63, Creatine Kinase MB 1.4, Creatine Kinase MB Relative Index 2.22, Troponin I < 0.02 11/23/16 18:51: 11/23/16 22:42: Total Creatine Kinase 64, Creatine Kinase MB 1.3, Creatine Kinase MB Relative Index 2.03, Troponin I < 0.02 11/24/16 06:24: White Blood Count 4.6, Red Blood Count 4.02, Hemoglobin 12.0, Hematocrit 37.9, Mean Corpuscular Volume 94.2, Mean Corpuscular Hemoglobin 29.9, Mean Corpuscular Hemoglobin Concent 31.7L, Red Cell Distribution Width 13.3, Platelet Count 219, Neutrophils (%) (Auto) 77.5H, Lymphocytes (%) (Auto) 16.0L, Monocytes (%) (Auto) 5.3H, Eosinophils (%) (Auto) 0.2, Basophils (%) (Auto) 0.2 , Neutrophils # (Auto) 3.6, Lymphocytes # (Auto) 0.8L, Monocytes # (Auto) 0.2, Eosinophils # (Auto) 0.0, Basophils # (Auto) 0.0, Large Unclassified Cells % 0.9 , Large Unclassified Cells # 0.0, Prothrombin Time 19.1H, Prothromb Time International Ratio 1.60, Anion Gap 5L, Glomerular Filtration Rate 56.1, Blood Urea Nitrogen 19H, Creatinine 1.07H, Sodium Level 136, Potassium Level 4.5, Chloride Level 98, Carbon Dioxide Level 33H, Calcium Level 9.0, Aspartate Amino Transf (AST/SGOT) 28, Alanine Aminotransferase (ALT/SGPT) 18, Alkaline Phosphatase 89, Total Bilirubin 0.3, Total Protein 7.3, Albumin 3.2, Magnesium Level 2.3, Albumin/Globulin Ratio 0.78L CBC/BMP Laboratory Tests 11/24/16 06:24 Red Blood Count 4.02, Mean Corpuscular Volume 94.2, Mean Corpuscular Hemoglobin 29.9, Mean Corpuscular Hemoglobin Concent 31.7 L, Red Cell Distribution Width 13.3, Neutrophils (%) (Auto) 77.5 H, Lymphocytes (%) (Auto) 16.0 L, Monocytes (% ) (Auto) 5.3 H, Eosinophils (%) (Auto) 0.2, Basophils (%) (Auto) 0.2, Neutrophils # (Auto) 3.6, Lymphocytes # (Auto) 0.8 L, Monocytes # (Auto) 0.2, Eosinophils # (Auto) 0.0, Basophils # (Auto) 0.0, Calcium Level 9.0, Aspartate Amino Transf (AST/SGOT) 28, Alanine Aminotransferase (ALT/SGPT) 18, Alkaline Phosphatase 89, Total Bilirubin 0.3, Total Protein 7.3, Albumin 3.2 Microbiology Microbiology 11/23/16 Blood Culture - Preliminary, Resulted No growth after 24 hours . All specim... 11/23/16 Blood Culture - Preliminary, Resulted No growth after 24 hours . All specim... 11/24/16 Gram Stain - Final, Resulted 11/24/16 Sputum Culture, Resulted Pending 11/23/16 Influenza Virus Type A Antigen - Final, Complete 11/23/16 Influenza Virus Type B Antigen - Final, Complete 11/23/16 Respiratory Virus Panel (PCR) (JAMES) - Final, Complete JANINA BA MD Nov 24, 2016 14:56
[2016-11-24] MEDS: WARFARIN SOD 1 MG TAB PO SCH (17:03)
[2016-11-24 19:38] VITALS: O2SAT 98
[2016-11-24] MEDS: SIMVASTATIN 20 MG TAB PO SCH (20:24)
[2016-11-24] MEDS: SENNA 8.6 MG TAB (SENOKOT) PO SCH (20:24)
[2016-11-24] MEDS: traZODone 50 MG TAB PO SCH (23:05)
[2016-11-25 01:24] VITALS: O2SAT 99
[2016-11-25] MEDS: IPRATROPIUM 0.5MG/ALBUTEROL 2.5MG INH SOL UD 3ML (DUONEB)(J7620) NEB SCH ×5 (01:32→20:18)
[2016-11-25] MEDS: PERCOCET 5MG/325MG TAB PO PRN ×4 (05:06→23:36)
[2016-11-25 06:59] LABS: BASO % 0.3 % (0.0-1.0); EOS % 0.6 % (0.0-3.0); LARGE UNSTAINED CELL # 0.1 K/mm3 (0.0-0.4); LARGE UNSTAINED CELL % 1.4 % (0.0-4.0); LYMPH # 1.9 K/mm3 (1.5-4.5); MEAN CORPUSCULAR HEMOGLOBIN 29.9 pg (27.0-33.0); MEAN CORPUSCULAR HGB CONC 31.3 g/dl (32.0-36.5); MEAN CORPUSCULAR VOLUME 95.4 fl (80.0-96.0); MONO # 0.4 K/mm3 (0.0-0.8); MONO % 5.3 % (0.0-5.0); NEUTROPHILS # 5.3 K/mm3 (1.8-7.7); NEUTROPHILS % 69.3 % (36.0-66.0); PLATELET COUNT, AUTOMATED 224 k/mm3 (150-450); RED CELL DISTRIBUTION WIDTH 13.5 % (11.5-14.5); WHITE BLOOD COUNT 7.6 K/mm3 (4.0-10.0)
[2016-11-25 07:09] LABS: ALBUMIN 3.2 GM/DL (3.2-5.2); ALBUMIN/GLOBULIN RATIO 1.03 (1.00-1.93); ALKALINE PHOSPHATASE 84 U/L (45-117); ALT/SGPT 15 U/L (12-78); ANION GAP 7 MEQ/L (8-16); AST/SGOT 24 U/L (15-37); BILIRUBIN,TOTAL 0.2 MG/DL (0.2-1.0); BLOOD UREA NITROGEN 22 MG/DL (7-18); CARBON DIOXIDE LEVEL 33 MEQ/L (21-32); CHLORIDE LEVEL 99 MEQ/L (98-107); CREATININE FOR GFR 0.95 MG/DL (0.55-1.02); GLOMERULAR FILTRATION RATE > 60.0 (>51); GLUCOSE, FASTING 86 MG/DL (70-105); MAGNESIUM LEVEL 2.3 MG/DL (1.8-2.4); POTASSIUM SERUM 4.4 MEQ/L (3.5-5.1); SODIUM LEVEL 139 MEQ/L (136-145); TOTAL PROTEIN 6.3 GM/DL (6.4-8.2)
[2016-11-25 07:17] LABS: INR 1.68
[2016-11-25] MEDS: SPIRONOLACTONE 50 MG TAB PO SCH (08:53)
[2016-11-25] MEDS: VITAMIN D 1,000 INTERNATIONAL UNITS TABLET PO SCH (08:53)
[2016-11-25] MEDS: OMEPRAZOLE 20 MG CAP PO SCH ×2 (08:53→20:07)
[2016-11-25] MEDS: ASPIRIN 81 MG ENTERIC TAB PO SCH (08:53)
[2016-11-25] MEDS: predniSONE 20 MG TAB PO SCH (08:53)
[2016-11-25] MEDS: TORSEMIDE 20 MG TAB PO SCH (08:53)
[2016-11-25] MEDS: ALPRAZolam 0.5 MG TAB PO SCH ×2 (08:54→20:08)
[2016-11-25] MEDS: POTASSIUM CHLORIDE 10 MEQ SR TABLET PO SCH (08:54)
[2016-11-25] MEDS: IPRATROPIUM 0.5MG/ALBUTEROL 2.5MG INH SOL UD 3ML (DUONEB)(J7620) NEB PRN ×2 (10:03→16:52)
--- NOTE | 2016-11-25 13:47 | IPNPDOC ---
Subjective Date Seen The patient was seen on 11/25/16. Subjective Chief Complaint/HPI The patient is a 56-year-old female admitted with a reason for visit of Copd W/ Acute Exacerbation. Events since last encounter Feels better, tolerating diet, less sob today, not to baseline, slept well last night, using acapella Constitutional: Denies: Chills, Fever Pulmonary: Reports: Dyspnea, Cough Cardiovascular: Denies: Chest Pain, Palpitations Gastrointestinal: Denies: Nausea, Vomiting Objective Physical Examination General Exam: Positive: Alert, Cooperative, No Acute Distress Eye Exam: Negative: Sclera icteric ENT Exam: Positive: Mucous membr. moist/pink Chest Exam: Positive: Wheezing (improved polyphonic), Diminished (I:E 1:4), Negative: Rhonchi Heart Exam: Positive: Rate Normal, Normal S1, Normal S2, Negative: Murmurs Abdomen Exam: Positive: Normal bowel sounds, Soft, Negative: Tenderness Extremity Exam: Negative: Edema Assessment /Plan Problems (1) COPD (chronic obstructive pulmonary disease) Status: Acute Problem Specific Plan: Monitor Clinically Problem Text: Steroids, aggressive pulmonary toilet Malclearance of secretions- acapella ordered, is helpful (2) Diastolic CHF, chronic Status: Chronic Problem Text: Still appears compensated on my exam (3) Lung nodule Status: Chronic (4) HTN (hypertension) Status: Chronic Problem Specific Plan: Monitor Clinically (5) GERD (gastroesophageal reflux disease) Status: Chronic (6) Anxiety Status: Chronic Plan/VTE VTE Prophylaxis Ordered?: Yes VS, I&O, 24H, Fishbone Vital Signs/I&O Vital Signs Date Time Temp Pulse Resp B/P (MAP) Pulse Ox O2 Delivery O2 Flow Rate FiO2 11/25/16 11:49 14 11/25/16 11:18 Nasal Cannula 2.0 11/25/16 01:24 99 11/24/16 14:00 98.7 78 98/97 (97) 11/23/16 10:20 96 I&O- Last 24 Hours up to 6 AM 11/25/16 06:00 Intake Total 2040 ml Output Total 700 ml Balance 1340 ml Laboratory Data 24H LABS Laboratory Tests 2 11/25/16 06:23: White Blood Count 7.6, Red Blood Count 3.79L, Hemoglobin 11.3L, Hematocrit 36.2 , Mean Corpuscular Volume 95.4, Mean Corpuscular Hemoglobin 29.9, Mean Corpuscular Hemoglobin Concent 31.3L, Red Cell Distribution Width 13.5, Platelet Count 224, Neutrophils (%) (Auto) 69.3H, Lymphocytes (%) (Auto) 23.0L, Monocytes (%) (Auto) 5.3H, Eosinophils (%) (Auto) 0.6, Basophils (%) (Auto) 0.3 , Neutrophils # (Auto) 5.3, Lymphocytes # (Auto) 1.9, Monocytes # (Auto) 0.4, Eosinophils # (Auto) 0.0, Basophils # (Auto) 0.0, Large Unclassified Cells % 1.4 , Large Unclassified Cells # 0.1, Prothrombin Time 19.9H, Prothromb Time International Ratio 1.68, Anion Gap 7L, Glomerular Filtration Rate > 60.0, Blood Urea Nitrogen 22H, Creatinine 0.95, Sodium Level 139, Potassium Level 4.4 , Chloride Level 99, Carbon Dioxide Level 33H, Calcium Level 9.0, Aspartate Amino Transf (AST/SGOT) 24, Alanine Aminotransferase (ALT/SGPT) 15, Alkaline Phosphatase 84, Total Bilirubin 0.2, Total Protein 6.3L, Albumin 3.2, Magnesium Level 2.3, Albumin/Globulin Ratio 1.03 CBC/BMP Laboratory Tests 11/25/16 06:23 Red Blood Count 3.79 L, Mean Corpuscular Volume 95.4, Mean Corpuscular Hemoglobin 29.9, Mean Corpuscular Hemoglobin Concent 31.3 L, Red Cell Distribution Width 13.5, Neutrophils (%) (Auto) 69.3 H, Lymphocytes (%) (Auto) 23.0 L, Monocytes (%) (Auto) 5.3 H, Eosinophils (%) (Auto) 0.6, Basophils (%) ( Auto) 0.3, Neutrophils # (Auto) 5.3, Lymphocytes # (Auto) 1.9, Monocytes # (Auto ) 0.4, Eosinophils # (Auto) 0.0, Basophils # (Auto) 0.0, Calcium Level 9.0, Aspartate Amino Transf (AST/SGOT) 24, Alanine Aminotransferase (ALT/SGPT) 15, Alkaline Phosphatase 84, Total Bilirubin 0.2, Total Protein 6.3 L, Albumin 3.2 Microbiology Microbiology 11/23/16 Blood Culture - Preliminary, Resulted No growth after 24 hours . All specim... 11/23/16 Blood Culture - Preliminary, Resulted No Growth after 48 hours. All Specime... 11/24/16 Gram Stain - Final, Resulted 11/24/16 Sputum Culture, Resulted Pending 11/23/16 Influenza Virus Type A Antigen - Final, Complete 11/23/16 Influenza Virus Type B Antigen - Final, Complete 11/23/16 Respiratory Virus Panel (PCR) (JAMES) - Final, Complete JANINA BA MD Nov 25, 2016 13:47
[2016-11-25] MEDS: ONDANSETRON 4MG/2ML VIAL (J2405) IV PRN (13:56)
[2016-11-25 14:00] VITALS: BP 129/82
[2016-11-25] MEDS: WARFARIN SOD 2 MG TAB PO SCH (16:42)
[2016-11-25] MEDS: SIMVASTATIN 20 MG TAB PO SCH (20:07)
[2016-11-25] MEDS: SENNA 8.6 MG TAB (SENOKOT) PO SCH (20:08)
[2016-11-25 20:10] VITALS: O2SAT 98
[2016-11-25 22:00] VITALS: BP 120/65
[2016-11-25] MEDS: traZODone 50 MG TAB PO SCH (22:05)
[2016-11-26 01:30] VITALS: O2SAT 99
[2016-11-26] MEDS: IPRATROPIUM 0.5MG/ALBUTEROL 2.5MG INH SOL UD 3ML (DUONEB)(J7620) NEB SCH ×4 (01:35→20:19)
[2016-11-26 03:30] VITALS: O2SAT 99
[2016-11-26] MEDS: IPRATROPIUM 0.5MG/ALBUTEROL 2.5MG INH SOL UD 3ML (DUONEB)(J7620) NEB PRN ×2 (03:39→11:23)
[2016-11-26 06:00] VITALS: BP 120/65
[2016-11-26] MEDS: PERCOCET 5MG/325MG TAB PO PRN ×3 (06:06→20:19)
[2016-11-26 06:52] LABS: BASO % 0.2 % (0.0-1.0); EOS % 0.2 % (0.0-3.0); LARGE UNSTAINED CELL # 0.1 K/mm3 (0.0-0.4); LARGE UNSTAINED CELL % 1.3 % (0.0-4.0); LYMPH # 2.4 K/mm3 (1.5-4.5); LYMPH % 30.8 % (24.0-44.0); MEAN CORPUSCULAR HEMOGLOBIN 30.6 pg (27.0-33.0); MEAN CORPUSCULAR HGB CONC 32.6 g/dl (32.0-36.5); MEAN CORPUSCULAR VOLUME 93.9 fl (80.0-96.0); MONO # 0.4 K/mm3 (0.0-0.8); MONO % 5.5 % (0.0-5.0); NEUTROPHILS # 4.6 K/mm3 (1.8-7.7); NEUTROPHILS % 61.9 % (36.0-66.0); PLATELET COUNT, AUTOMATED 211 k/mm3 (150-450); RED CELL DISTRIBUTION WIDTH 13.4 % (11.5-14.5); WHITE BLOOD COUNT 7.4 K/mm3 (4.0-10.0)
[2016-11-26] MEDS ORDERED: CEFDINIR 300 MG CAP (OMNICEF) PO ONE (07:00)
[2016-11-26 07:18] LABS: ALBUMIN 3.2 GM/DL (3.2-5.2); ALBUMIN/GLOBULIN RATIO 0.78 (1.00-1.93); BILIRUBIN,TOTAL 0.1 MG/DL (0.2-1.0); CALCIUM LEVEL 9.2 MG/DL (8.5-10.1); CREATININE FOR GFR 1.09 MG/DL (0.55-1.02); GLOMERULAR FILTRATION RATE 54.9 (>51); MAGNESIUM LEVEL 2.3 MG/DL (1.8-2.4); POTASSIUM SERUM 3.9 MEQ/L (3.5-5.1); TOTAL PROTEIN 7.3 GM/DL (6.4-8.2)
[2016-11-26 07:21] LABS: INR 1.74
[2016-11-26] MEDS: ALPRAZolam 0.5 MG TAB PO SCH ×2 (09:14→20:57)
[2016-11-26] MEDS: ASPIRIN 81 MG ENTERIC TAB PO SCH (09:15)
[2016-11-26] MEDS: OMEPRAZOLE 20 MG CAP PO SCH ×2 (09:15→20:57)
[2016-11-26] MEDS: predniSONE 20 MG TAB PO SCH (09:15)
[2016-11-26] MEDS: TORSEMIDE 20 MG TAB PO SCH (09:15)
[2016-11-26] MEDS: VITAMIN D 1,000 INTERNATIONAL UNITS TABLET PO SCH (09:15)
[2016-11-26] MEDS: SPIRONOLACTONE 50 MG TAB PO SCH (09:15)
[2016-11-26] MEDS: POTASSIUM CHLORIDE 10 MEQ SR TABLET PO SCH (09:16)
--- NOTE | 2016-11-26 09:32 | IPNPDOC ---
Subjective Date Seen The patient was seen on 11/26/16. Subjective Chief Complaint/HPI The patient is a 56-year-old female admitted with a reason for visit of Copd W/ Acute Exacerbation. Events since last encounter Improving shortness of breath, still producing sputum, using acapella, tolerating diet, no chest pain, has been oob, encouraged ambulation Constitutional: Denies: Chills, Fever Pulmonary: Reports: Dyspnea, Cough Cardiovascular: Denies: Chest Pain, Palpitations Gastrointestinal: Denies: Nausea, Vomiting, Abdominal Pain Objective Physical Examination General Exam: Positive: Alert, Cooperative, No Acute Distress Eye Exam: Negative: Sclera icteric ENT Exam: Positive: Mucous membr. moist/pink Chest Exam: Positive: Wheezing (improved polyphonic, mainly posterior), Diminished (I:E 1:4), Negative: Rales, Rhonchi Heart Exam: Positive: Rate Normal, Normal S1, Normal S2, Negative: Murmurs Abdomen Exam: Positive: Normal bowel sounds, Soft, Negative: Tenderness Extremity Exam: Negative: Edema Neuro Exam: Positive: Normal Speech Psych Exam: Positive: Mental status NL, Negative: Anxiety Assessment /Plan Problems (1) COPD (chronic obstructive pulmonary disease) Status: Acute Problem Specific Plan: Monitor Clinically Problem Text: Steroids, aggressive pulmonary toilet Malclearance of secretions- acapella ordered, is helpful Still producing good amounts of thick sputum- has grown e.coli previously tolerated cefdinir on my service- will give a trial dose and continue if she tolerates (2) Diastolic CHF, chronic Status: Chronic Problem Text: Still appears compensated on my exam- no significant edema, and respiratory improvement as of 11/26/16 (3) Lung nodule Status: Chronic (4) HTN (hypertension) Status: Chronic Problem Specific Plan: Monitor Clinically (5) GERD (gastroesophageal reflux disease) Status: Chronic (6) Anxiety Status: Chronic Plan/VTE VTE Prophylaxis Ordered?: Yes VS, I&O, 24H, Fishbone Vital Signs/I&O Vital Signs Date Time Temp Pulse Resp B/P (MAP) Pulse Ox O2 Delivery O2 Flow Rate FiO2 11/26/16 06:36 18 Nasal Cannula 2.0 11/26/16 06:00 97.6 101 120/65 (83) 96 11/23/16 10:20 96 I&O- Last 24 Hours up to 6 AM 11/26/16 06:00 Intake Total 2760 ml Output Total 2750 ml Balance 10 ml Laboratory Data 24H LABS Laboratory Tests 2 11/26/16 06:30: White Blood Count 7.4, Red Blood Count 3.80L, Hemoglobin 11.6L, Hematocrit 35.6L , Mean Corpuscular Volume 93.9, Mean Corpuscular Hemoglobin 30.6, Mean Corpuscular Hemoglobin Concent 32.6, Red Cell Distribution Width 13.4, Platelet Count 211, Neutrophils (%) (Auto) 61.9, Lymphocytes (%) (Auto) 30.8, Monocytes ( %) (Auto) 5.5H, Eosinophils (%) (Auto) 0.2, Basophils (%) (Auto) 0.2, Neutrophils # (Auto) 4.6, Lymphocytes # (Auto) 2.4, Monocytes # (Auto) 0.4, Eosinophils # (Auto) 0.0, Basophils # (Auto) 0.0, Large Unclassified Cells % 1.3 , Large Unclassified Cells # 0.1, Prothrombin Time 20.4H, Prothromb Time International Ratio 1.74, Anion Gap 6L, Glomerular Filtration Rate 54.9, Blood Urea Nitrogen 22H, Creatinine 1.09H, Sodium Level 138, Potassium Level 3.9, Chloride Level 96L, Carbon Dioxide Level 36H, Calcium Level 9.2, Aspartate Amino Transf (AST/SGOT) 27, Alanine Aminotransferase (ALT/SGPT) 20, Alkaline Phosphatase 80, Total Bilirubin 0.1L, Total Protein 7.3, Albumin 3.2, Magnesium Level 2.3, Albumin/Globulin Ratio 0.78L CBC/BMP Laboratory Tests 11/26/16 06:30 Red Blood Count 3.80 L, Mean Corpuscular Volume 93.9, Mean Corpuscular Hemoglobin 30.6, Mean Corpuscular Hemoglobin Concent 32.6, Red Cell Distribution Width 13.4, Neutrophils (%) (Auto) 61.9, Lymphocytes (%) (Auto) 30.8, Monocytes (%) (Auto) 5.5 H, Eosinophils (%) (Auto) 0.2, Basophils (%) ( Auto) 0.2, Neutrophils # (Auto) 4.6, Lymphocytes # (Auto) 2.4, Monocytes # (Auto ) 0.4, Eosinophils # (Auto) 0.0, Basophils # (Auto) 0.0, Calcium Level 9.2, Aspartate Amino Transf (AST/SGOT) 27, Alanine Aminotransferase (ALT/SGPT) 20, Alkaline Phosphatase 80, Total Bilirubin 0.1 L, Total Protein 7.3, Albumin 3.2 Microbiology Microbiology 11/23/16 Blood Culture - Preliminary, Resulted No Growth after 48 hours. All Specime... 11/23/16 Blood Culture - Preliminary, Resulted No Growth after 48 hours. All Specime... 11/24/16 Gram Stain - Final, Complete 11/24/16 Sputum Culture - Final, Complete Escherichia Coli 11/23/16 Influenza Virus Type A Antigen - Final, Complete 11/23/16 Influenza Virus Type B Antigen - Final, Complete 11/23/16 Respiratory Virus Panel (PCR) (JAMES) - Final, Complete JANINA BA MD Nov 26, 2016 09:32
[2016-11-26 11:24] VITALS: O2SAT 97
[2016-11-26 14:00] VITALS: BP 121/66
[2016-11-26] MEDS: WARFARIN SOD 2 MG TAB PO SCH (16:25)
[2016-11-26] MEDS: ONDANSETRON 4MG/2ML VIAL (J2405) IV PRN (16:53)
[2016-11-26] MEDS: SIMVASTATIN 20 MG TAB PO SCH (20:56)
[2016-11-26] MEDS: CEFDINIR 300 MG CAP (OMNICEF) PO SCH (20:57)
[2016-11-26] MEDS: SENNA 8.6 MG TAB (SENOKOT) PO SCH (20:57)
[2016-11-26 22:00] VITALS: BP 115/87
[2016-11-26] MEDS: traZODone 50 MG TAB PO SCH (22:07)
[2016-11-27 03:00] VITALS: O2SAT 100
[2016-11-27] MEDS: IPRATROPIUM 0.5MG/ALBUTEROL 2.5MG INH SOL UD 3ML (DUONEB)(J7620) NEB SCH ×4 (03:09→18:17)
[2016-11-27] MEDS: PERCOCET 5MG/325MG TAB PO PRN ×4 (03:14→21:54)
[2016-11-27 06:00] VITALS: BP 115/80
[2016-11-27 06:36] LABS: BASO % 0.2 % (0.0-1.0); EOS % 0.2 % (0.0-3.0); LARGE UNSTAINED CELL # 0.1 K/mm3 (0.0-0.4); LARGE UNSTAINED CELL % 1.3 % (0.0-4.0); LYMPH % 25.9 % (24.0-44.0); MEAN CORPUSCULAR HEMOGLOBIN 30.3 pg (27.0-33.0); MEAN CORPUSCULAR HGB CONC 32.2 g/dl (32.0-36.5); MEAN CORPUSCULAR VOLUME 94.1 fl (80.0-96.0); MONO # 0.5 K/mm3 (0.0-0.8); MONO % 6.9 % (0.0-5.0); NEUTROPHILS % 65.5 % (36.0-66.0); PLATELET COUNT, AUTOMATED 216 k/mm3 (150-450); RED CELL DISTRIBUTION WIDTH 13.3 % (11.5-14.5); WHITE BLOOD COUNT 7.6 K/mm3 (4.0-10.0)
[2016-11-27 06:39] LABS: INR 1.69
[2016-11-27 06:51] LABS: BILIRUBIN,TOTAL 0.2 MG/DL (0.2-1.0); CALCIUM LEVEL 9.2 MG/DL (8.5-10.1); CREATININE FOR GFR 1.09 MG/DL (0.55-1.02); GLOMERULAR FILTRATION RATE 54.9 (>51)
[2016-11-27 06:52] LABS: ALBUMIN 3.1 GM/DL (3.2-5.2); ALBUMIN/GLOBULIN RATIO 0.78 (1.00-1.93); MAGNESIUM LEVEL 2.4 MG/DL (1.8-2.4); TOTAL PROTEIN 7.1 GM/DL (6.4-8.2)
--- NOTE | 2016-11-27 07:53 | IPNPDOC ---
Subjective Date Seen The patient was seen on 11/27/16. Subjective Chief Complaint/HPI The patient is a 56-year-old female admitted with a reason for visit of Copd W/ Acute Exacerbation. Events since last encounter Feeling better than at presentation, tolerating diet, no reaction to antibiotic , still producing thick sputum, clear, no blood Constitutional: Denies: Chills, Fever Pulmonary: Reports: Dyspnea, Cough Cardiovascular: Denies: Chest Pain, Palpitations Gastrointestinal: Denies: Nausea, Vomiting, Abdominal Pain Objective Physical Examination General Exam: Positive: Alert, Cooperative, No Acute Distress Eye Exam: Negative: Sclera icteric ENT Exam: Positive: Mucous membr. moist/pink Chest Exam: Positive: Wheezing (improved polyphonic, mainly posterior), Diminished (I:E 1:4), Negative: Clear to auscultation, Normal air movement, Rales, Rhonchi Heart Exam: Positive: Rate Normal, Normal S1, Normal S2, Negative: Murmurs Abdomen Exam: Positive: Normal bowel sounds, Soft, Negative: Tenderness Extremity Exam: Negative: Edema Neuro Exam: Positive: Normal Speech Psych Exam: Positive: Mental status NL, Mood NL, Negative: Anxiety Assessment /Plan Problems (1) COPD (chronic obstructive pulmonary disease) Status: Acute Problem Specific Plan: Monitor Clinically Problem Text: Steroids, aggressive pulmonary toilet Malclearance of secretions- acapella ordered, is still helpful in producing sputum Still producing good amounts of thick sputum- has grown e.coli previously tolerated cefdinir on my service- and is tolerating it again (2) Diastolic CHF, chronic Status: Chronic Problem Text: Appears compensated on my exam- no significant edema, and respiratory improvement as of 11/27/16 (3) Lung nodule Status: Chronic (4) HTN (hypertension) Status: Chronic Problem Specific Plan: Monitor Clinically (5) GERD (gastroesophageal reflux disease) Status: Chronic (6) Anxiety Status: Chronic Plan/VTE VTE Prophylaxis Ordered?: Yes VS, I&O, 24H, Fishbone Vital Signs/I&O Vital Signs Date Time Temp Pulse Resp B/P (MAP) Pulse Ox O2 Delivery O2 Flow Rate FiO2 11/27/16 06:00 98.1 82 18 115/80 (92) 100 Nasal Cannula 2.0 11/23/16 10:20 96 I&O- Last 24 Hours up to 6 AM 11/27/16 06:00 Intake Total 1080 ml Output Total 1350 ml Balance -270 ml Laboratory Data 24H LABS Laboratory Tests 2 11/27/16 06:15: White Blood Count 7.6, Red Blood Count 3.87L, Hemoglobin 11.7L, Hematocrit 36.4 , Mean Corpuscular Volume 94.1, Mean Corpuscular Hemoglobin 30.3, Mean Corpuscular Hemoglobin Concent 32.2, Red Cell Distribution Width 13.3, Platelet Count 216, Neutrophils (%) (Auto) 65.5, Lymphocytes (%) (Auto) 25.9, Monocytes ( %) (Auto) 6.9H, Eosinophils (%) (Auto) 0.2, Basophils (%) (Auto) 0.2, Neutrophils # (Auto) 5.0, Lymphocytes # (Auto) 2.0, Monocytes # (Auto) 0.5, Eosinophils # (Auto) 0.0, Basophils # (Auto) 0.0, Large Unclassified Cells % 1.3 , Large Unclassified Cells # 0.1, Prothrombin Time 20.0H, Prothromb Time International Ratio 1.69, Anion Gap 4L, Glomerular Filtration Rate 54.9, Blood Urea Nitrogen 25H, Creatinine 1.09H, Sodium Level 137, Potassium Level 4.0, Chloride Level 95L, Carbon Dioxide Level 38H, Calcium Level 9.2, Aspartate Amino Transf (AST/SGOT) 30, Alanine Aminotransferase (ALT/SGPT) 21, Alkaline Phosphatase 82, Total Bilirubin 0.2#, Total Protein 7.1, Albumin 3.1L, Magnesium Level 2.4, Albumin/Globulin Ratio 0.78L CBC/BMP Laboratory Tests 11/27/16 06:15 Red Blood Count 3.87 L, Mean Corpuscular Volume 94.1, Mean Corpuscular Hemoglobin 30.3, Mean Corpuscular Hemoglobin Concent 32.2, Red Cell Distribution Width 13.3, Neutrophils (%) (Auto) 65.5, Lymphocytes (%) (Auto) 25.9, Monocytes (%) (Auto) 6.9 H, Eosinophils (%) (Auto) 0.2, Basophils (%) ( Auto) 0.2, Neutrophils # (Auto) 5.0, Lymphocytes # (Auto) 2.0, Monocytes # (Auto ) 0.5, Eosinophils # (Auto) 0.0, Basophils # (Auto) 0.0, Calcium Level 9.2, Aspartate Amino Transf (AST/SGOT) 30, Alanine Aminotransferase (ALT/SGPT) 21, Alkaline Phosphatase 82, Total Bilirubin 0.2 #, Total Protein 7.1, Albumin 3.1 L Microbiology Microbiology 11/23/16 Blood Culture - Preliminary, Resulted No Growth after 72 hours. All specime... 11/23/16 Blood Culture - Preliminary, Resulted No Growth after 72 hours. All specime... 11/24/16 Gram Stain - Final, Complete 11/24/16 Sputum Culture - Final, Complete Escherichia Coli 11/23/16 Influenza Virus Type A Antigen - Final, Complete 11/23/16 Influenza Virus Type B Antigen - Final, Complete 11/23/16 Respiratory Virus Panel (PCR) (JAMES) - Final, Complete JANINA BA MD Nov 27, 2016 07:53
--- NOTE | 2016-11-27 08:13 | ECGEPIP ---
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
[2016-11-27] MEDS: SPIRONOLACTONE 50 MG TAB PO SCH (08:28)
[2016-11-27] MEDS: ASPIRIN 81 MG ENTERIC TAB PO SCH (08:28)
[2016-11-27] MEDS: CEFDINIR 300 MG CAP (OMNICEF) PO SCH ×2 (08:28→21:03)
[2016-11-27] MEDS: VITAMIN D 1,000 INTERNATIONAL UNITS TABLET PO SCH (08:28)
[2016-11-27] MEDS: TORSEMIDE 20 MG TAB PO SCH (08:28)
[2016-11-27] MEDS: ALPRAZolam 0.5 MG TAB PO SCH ×2 (08:29→21:03)
[2016-11-27] MEDS: OMEPRAZOLE 20 MG CAP PO SCH ×2 (08:29→21:03)
[2016-11-27] MEDS: POTASSIUM CHLORIDE 10 MEQ SR TABLET PO SCH (08:29)
[2016-11-27] MEDS: predniSONE 20 MG TAB PO SCH (08:29)
[2016-11-27] MEDS: ONDANSETRON 4MG/2ML VIAL (J2405) IV PRN (11:42)
[2016-11-27] MEDS: IPRATROPIUM 0.5MG/ALBUTEROL 2.5MG INH SOL UD 3ML (DUONEB)(J7620) NEB PRN ×2 (11:44→15:25)
[2016-11-27 14:00] VITALS: BP 145/74
[2016-11-27] MEDS: WARFARIN SOD 1 MG TAB PO SCH (16:49)
[2016-11-27 18:10] VITALS: O2SAT 99
[2016-11-27] MEDS: SENNA 8.6 MG TAB (SENOKOT) PO SCH (21:03)
[2016-11-27] MEDS: SIMVASTATIN 20 MG TAB PO SCH (21:04)
[2016-11-27] MEDS: traZODone 50 MG TAB PO SCH (21:54)
[2016-11-27 22:00] VITALS: BP 169/63
[2016-11-28 00:06] LABS: ORGANISM ID Not indicated. (.); SPECIMEN SOURCE Urine (.)
[2016-11-28 00:20] VITALS: O2SAT 100
[2016-11-28] MEDS: IPRATROPIUM 0.5MG/ALBUTEROL 2.5MG INH SOL UD 3ML (DUONEB)(J7620) NEB SCH ×2 (00:26→07:06)
[2016-11-28] MEDS: IPRATROPIUM 0.5MG/ALBUTEROL 2.5MG INH SOL UD 3ML (DUONEB)(J7620) NEB PRN ×2 (04:08→10:56)
[2016-11-28] MEDS: PERCOCET 5MG/325MG TAB PO PRN ×2 (04:08→08:56)
[2016-11-28 06:00] VITALS: BP 127/68
[2016-11-28 07:17] LABS: INR 1.57
[2016-11-28 07:30] LABS: ALBUMIN 3.2 GM/DL (3.2-5.2); ALBUMIN/GLOBULIN RATIO 0.82 (1.00-1.93); ALKALINE PHOSPHATASE 80 U/L (45-117); ALT/SGPT 22 U/L (12-78); ANION GAP 4 MEQ/L (8-16); AST/SGOT 31 U/L (15-37); BILIRUBIN,TOTAL 0.2 MG/DL (0.2-1.0); BLOOD UREA NITROGEN 26 MG/DL (7-18); CALCIUM LEVEL 9.3 MG/DL (8.5-10.1); CARBON DIOXIDE LEVEL 38 MEQ/L (21-32); CHLORIDE LEVEL 92 MEQ/L (98-107); GLOMERULAR FILTRATION RATE > 60.0 (>51); GLUCOSE, FASTING 85 MG/DL (70-105); MAGNESIUM LEVEL 2.3 MG/DL (1.8-2.4); POTASSIUM SERUM 3.7 MEQ/L (3.5-5.1); SODIUM LEVEL 134 MEQ/L (136-145); TOTAL PROTEIN 7.1 GM/DL (6.4-8.2)
[2016-11-28] MEDS ORDERED: CEFD1CAP8 PO (07:31)
[2016-11-28 07:32] LABS: BASO % 0.3 % (0.0-1.0); EOS % 0.5 % (0.0-3.0); LARGE UNSTAINED CELL # 0.2 K/mm3 (0.0-0.4); LARGE UNSTAINED CELL % 2.1 % (0.0-4.0); LYMPH # 2.9 K/mm3 (1.5-4.5); LYMPH % 31.9 % (24.0-44.0); MEAN CORPUSCULAR HEMOGLOBIN 30.1 pg (27.0-33.0); MEAN CORPUSCULAR HGB CONC 31.5 g/dl (32.0-36.5); MEAN CORPUSCULAR VOLUME 95.4 fl (80.0-96.0); MONO # 0.6 K/mm3 (0.0-0.8); MONO % 6.8 % (0.0-5.0); NEUTROPHILS # 5.3 K/mm3 (1.8-7.7); NEUTROPHILS % 58.5 % (36.0-66.0); PLATELET COUNT, AUTOMATED 224 k/mm3 (150-450); RED CELL DISTRIBUTION WIDTH 13.2 % (11.5-14.5); WHITE BLOOD COUNT 9.1 K/mm3 (4.0-10.0)
[2016-11-28] MEDS: POTASSIUM CHLORIDE 10 MEQ SR TABLET PO SCH (08:54)
[2016-11-28] MEDS: VITAMIN D 1,000 INTERNATIONAL UNITS TABLET PO SCH (08:54)
[2016-11-28] MEDS: CEFDINIR 300 MG CAP (OMNICEF) PO SCH (08:55)
[2016-11-28] MEDS: OMEPRAZOLE 20 MG CAP PO SCH (08:55)
[2016-11-28] MEDS: TORSEMIDE 20 MG TAB PO SCH (08:55)
[2016-11-28] MEDS: ASPIRIN 81 MG ENTERIC TAB PO SCH (08:55)
[2016-11-28] MEDS: ALPRAZolam 0.5 MG TAB PO SCH (08:55)
[2016-11-28] MEDS: SPIRONOLACTONE 50 MG TAB PO SCH (08:55)
[2016-11-28] MEDS: predniSONE 20 MG TAB PO SCH (08:55)
[2016-11-28] MEDS: ONDANSETRON 4MG/2ML VIAL (J2405) IV PRN (09:41)
[2016-11-28] MEDS ORDERED: PRED10TA PO (13:10)
--- NOTE | 2016-11-28 16:37 | DS.PDOC ---
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 ADMITTING DIAGNOSES: 1. Dyspnea 2. COPD exacerbation 3. History of CHF DISCHARGE DIAGNOSES: 1. COPD exacerbation 2. History of COPD 3. History of CHF COMPLICATIONS/CHIEF COMPLAINT: Shortness of breath and increase of coughing with more production of sputum. HISTORY OF PRESENT ILLNESS: Patient is a 56 year old female with past medical history of COPD, diastolic heart failure, hypertension, and other medical problems presents with shortness of breath. Patient has a diagnosis of COPD and is on 2 liters of oxygen at home. prior to admission noticing more short of breath. Used same amount of oxygen and tried breathing treatment with no change. Went to see her primary care physician, was told a viral infection and to return in one week if does not get better. Symptoms got worse, productive cough began with yellow sputum and orthopnea with paraoxysmal nocturnal dyspnea. Night prior to admission woke up with dyspnea and inhaler did not help. Therefore she came to the ER. Ambulation distance reported shortened due to shortness of breath. HOSPITAL COURSE: While in the hospital patient was treated for COPD exacerbation. Patient was treated with Prednisone oral 60 mg first day and 40 oral subsequently. Work up with blood cultures and respiratory panel were both negative. Influenza was also negative. Sputum culture grew E. Coli. Patient was started on Cefdinir and had that for 3 days BID. E coli is sensitive to Cefdinir and this was continued, will prescribe on discharge. Chest radiograph was performed and showed no acute disease. Patient was continued on home warfarin for history of DVT, however patient is subtherapeutic and therefore was on Lovenox for DVT prophylaxis. Patient was also started on IV Lasix for patient's history of CHF. DISCHARGE MEDICATIONS: Please see below. ALLERGIES: Please see below. PHYSICAL EXAMINATION ON DISCHARGE: VITAL SIGNS: Please see below. GENERAL: Cooperative and comfortable. No distress. HEENT: No signs of injury. NECK: No enlarged lymph nodes. CARDIOVASCULAR EXAMINATION: Normal s1 and s2. No clicks, rubs, gallops, or murmurs. RESPIRATORY EXAMINATION: Clear to auscultation. ABDOMINAL EXAMINATION: Soft, nontender. Bowel sounds present. EXTREMITIES: Pitting edema. SKIN: No new rashes or lesions. NEUROLOGICAL EXAMINATION: No focal deficits. PSYCHIATRIC EXAMINATION: Normal affect. LABORATORY DATA: Please see below. IMAGING: Chest radiograph showed no active disease. PROGNOSIS: Stable ACTIVITY: As tolerated. DIET:As tolerated. DISCHARGE PLAN: Stable. Discharge home. DISPOSITION: Patient is a 56 year old female with past medical history of COPD, diastolic heart failure, hypertension, and other medical problems presents with shortness of breath. Patient is currently stable. Being sent home on a 7 day course of Cefdinir 300 mg PO BID and Prednisone taper. Patient is to follow up with PCP in 1-3 days. DISCHARGE INSTRUCTIONS: 1. Follow up with PCP Dr. Marcano in next 1-3 days. DISCHARGE CONDITION: Stable. TIME SPENT ON DISCHARGE: Greater than 30 minutes. Vital Signs/I&Os Vital Signs Date Time Temp Pulse Resp B/P (MAP) Pulse Ox O2 Delivery O2 Flow Rate FiO2 11/28/16 09:26 18 11/28/16 06:00 97.2 86 127/68 (87) 99 Nasal Cannula 2.0 11/23/16 10:20 96 I&O- Last 24 Hours up to 6 AM 11/28/16 06:00 Intake Total 1560 ml Output Total 1750 ml Balance -190 ml Laboratory Data Labs 24H Laboratory Tests 2 11/28/16 06:50: White Blood Count 9.1, Red Blood Count 3.97L, Hemoglobin 11.9L, Hematocrit 37.9 , Mean Corpuscular Volume 95.4, Mean Corpuscular Hemoglobin 30.1, Mean Corpuscular Hemoglobin Concent 31.5L, Red Cell Distribution Width 13.2, Platelet Count 224, Neutrophils (%) (Auto) 58.5, Lymphocytes (%) (Auto) 31.9, Monocytes (%) (Auto) 6.8H, Eosinophils (%) (Auto) 0.5, Basophils (%) (Auto) 0.3 , Neutrophils # (Auto) 5.3, Lymphocytes # (Auto) 2.9, Monocytes # (Auto) 0.6, Eosinophils # (Auto) 0.0, Basophils # (Auto) 0.0, Large Unclassified Cells % 2.1 , Large Unclassified Cells # 0.2, Prothrombin Time 18.9H, Prothromb Time International Ratio 1.57, Anion Gap 4L, Glomerular Filtration Rate > 60.0, Blood Urea Nitrogen 26H, Creatinine 1.00, Sodium Level 134L, Potassium Level 3.7 , Chloride Level 92L, Carbon Dioxide Level 38H, Calcium Level 9.3, Aspartate Amino Transf (AST/SGOT) 31, Alanine Aminotransferase (ALT/SGPT) 22, Alkaline Phosphatase 80, Total Bilirubin 0.2, Total Protein 7.1, Albumin 3.2, Magnesium Level 2.3, Albumin/Globulin Ratio 0.82L CBC/BMP Laboratory Tests 11/28/16 06:50 Red Blood Count 3.97 L, Mean Corpuscular Volume 95.4, Mean Corpuscular Hemoglobin 30.1, Mean Corpuscular Hemoglobin Concent 31.5 L, Red Cell Distribution Width 13.2, Neutrophils (%) (Auto) 58.5, Lymphocytes (%) (Auto) 31.9, Monocytes (%) (Auto) 6.8 H, Eosinophils (%) (Auto) 0.5, Basophils (%) ( Auto) 0.3, Neutrophils # (Auto) 5.3, Lymphocytes # (Auto) 2.9, Monocytes # (Auto ) 0.6, Eosinophils # (Auto) 0.0, Basophils # (Auto) 0.0, Calcium Level 9.3, Aspartate Amino Transf (AST/SGOT) 31, Alanine Aminotransferase (ALT/SGPT) 22, Alkaline Phosphatase 80, Total Bilirubin 0.2, Total Protein 7.1, Albumin 3.2 Microbiology Microbiology 11/23/16 Blood Culture - Preliminary, Resulted No Growth after 72 hours. All specime... 11/23/16 Blood Culture - Preliminary, Resulted No Growth after 72 hours. All specime... 11/24/16 Gram Stain - Final, Complete 11/24/16 Sputum Culture - Final, Complete Escherichia Coli 11/23/16 Influenza Virus Type A Antigen - Final, Complete 11/23/16 Influenza Virus Type B Antigen - Final, Complete 11/23/16 Respiratory Virus Panel (PCR) (JAMES) - Final, Complete Discharge Medications Scheduled Alprazolam (Alprazolam) 1 Mg Tab, 1 MG PO BID, (Reported) Aspirin (Aspirin) 81 Mg Tab, 81 MG PO DAILY, (Reported) Cefdinir (Cefdinir) 300 Mg Cap, 300 MG PO Q12H Cholecalciferol (Vitamin D-3) 2,000 Unit Tab, 2,000 UNIT PO DAILY, (Reported) Lamotrigine (Lamotrigine) 150 Mg Tab, 150 MG PO DAILY, (Reported) Mometasone Furoate (Asmanex Hfa) 200 Mcg/Act Aer, 200 MCG INH QHS, (Reported) Omeprazole (Omeprazole) 40 Mg Cap, 40 MG PO BID, (Reported) Potassium Chloride (Potassium Chloride ER) 20 Meq Tab, 40 MEQ PO DAILY, ( Reported) Prednisone (Prednisone) 10 Mg Tab, 10 MG PO TAPER Take 4 tabs daily x 3 days, then 3 tabs daily x 3 days, then 2 tabs daily x 3 days, then 1 tab daily x 3 days and stop Senna (Senna-Lax) 8.6 Mg Tab, 2 TAB PO QHS, (Reported) Simvastatin (Zocor) 20 Mg Tab, 20 MG PO QHS, (Reported) Spironolactone (Aldactone) 25 Mg Tab, 50 MG PO DAILY, (Reported) Torsemide (Torsemide) 20 Mg Tab, 40 MG PO DAILY, (Reported) Trazodone HCl (Trazodone HCl) 150 Mg Tab, 150 MG PO QHS, (Reported) Warfarin Sod (Warfarin Sodium) 1 Mg Tab, 1 MG PO 2XW, (Reported) SUNDAY AND SUNDAY Warfarin Sod (Warfarin Sodium) 2 Mg Tab, 2 MG PO 5XW, (Reported) SUN, , WED, TH, SAT Scheduled PRN Albuterol Sulfate (Ventolin Hfa) 200 Puff/8 Gm Aers, 2 PUFF INH Q4H PRN for SHORTNESS OF BREATH, (Reported) Albuterol/Ipratropium (Ipratropium Sunray/Albut 0.5-2.5 (3) mg/3Ml) 1 Juan Carlos Juan Carlos, 1 JUAN CARLOS INH Q4H PRN for SHORTNESS OF BREATH, (Reported) Nitroglycerin (Nitrostat) 0.4 Mg Subl, 0.4 MG SL Q5MP PRN for CHEST PAIN, ( Reported) Oxycodone/Acetaminophen (Percocet 5-325 mg) 1 Tab Tab, 1 TAB PO Q6H PRN for PAIN , (Reported) Allergies Coded Allergies: Morphine (Verified Allergy, Severe, SOB,RASH,ITCHING, 11/23/16) Cephalexin (Verified Allergy, Intermediate, HIVES, 11/23/16) Clavulanic Acid (Verified Allergy, Intermediate, HIVES, 11/23/16) Replaces AUGMENTIN Erythromycin (Verified Allergy, Intermediate, HIVES (ZITHROMAX OK), 11/23/16 ) ALLERGY WAS NOTED WITH ERYTH-SMZ COMBU...POSSIBLE SULFA CONTENT ALREADY NOTED Methylprednisolone (Verified Allergy, Intermediate, RASH WITH IV DOSING, ) Moxifloxacin (Verified Allergy, Intermediate, hives, 11/23/16) Penicillins (Verified Allergy, Intermediate, HIVES, 11/23/16) Replaces AUGMENTIN Quinolones (Verified Allergy, Intermediate, GENERALIZED ITCHING & HIVES, ) Sulfa Drugs (Verified Allergy, Intermediate, HIVES, 11/23/16) Iodine (Verified Adverse Reaction, Intermediate, ACUTE RENAL INSUFFICIENCY , 11/23/16) Iopamidol (Verified Adverse Reaction, Intermediate, ACUTE RENAL INSUFFICIENCY, 11/23/16) Gabapentin (Verified Adverse Reaction, Mild, upset stomach, 11/23/16) GME ATTESTATION GME ATTESTATION My preceptor for this patient encounter was Dr. Le and he was physically present in the building during the encounter and was fully available. As needed , all aspects of the patient interview, examination, medical decision making process, and medical care plan development were reviewed and approved by the preceptor. Preceptor is aware and concurs with the plan as stated in the body of this note and will attest to such by his/her co-signature. PATRICK ELLINGTON DO Nov 28, 2016 10:46
== END 2016-11-28 12:20 | disposition home health service (06) | DRG 140 ==
LOC: M ED 11:01 → M ED INP 15:12 → M MS5PR 17:00 → OBSVTOIN 11-27 07:29
PROVIDERS: ADMIT Internal Medicine; ATTEND Internal Medicine
DX: J44.1 Chronic obstructive pulmonary disease with (acute) exacerbation (principal); I11.0 Hypertensive heart disease with heart failure; I27.2 Other secondary pulmonary hypertension; I50.32 Chronic diastolic (congestive) heart failure; Z99.81 Dependence on supplemental oxygen; E78.00 Pure hypercholesterolemia, unspecified; F32.9 Major depressive disorder, single episode, unspecified; F41.9 Anxiety disorder, unspecified; K21.9 Gastro-esophageal reflux disease without esophagitis; R91.1 Solitary pulmonary nodule; G47.00 Insomnia, unspecified; B96.20 Unspecified Escherichia coli [E. coli] as the cause of diseases classified elsewhere; M50.30 Other cervical disc degeneration, unspecified cervical region; Z96.641 Presence of right artificial hip joint; Z79.82 Long term (current) use of aspirin; Z79.01 Long term (current) use of anticoagulants; Z79.899 Other long term (current) drug therapy; Z79.891 Long term (current) use of opiate analgesic; Z88.5 Allergy status to narcotic agent; Z88.1 Allergy status to other antibiotic agents; Z88.8 Allergy status to other drugs, medicaments and biological substances; Z86.718 Personal history of other venous thrombosis and embolism

== ENCOUNTER → 2016-11-29 | Outpatient (REF) | payer OTHER ==
[~2016-11-29] MED LIST changes: +CEFD1CAP8 PO; +TORS20TA2 PO; +WARF4TAB52 PO; +oxygen
== END ==
LOC: M SFHCPLAZ 17:45
PROVIDERS: ATTEND Family Medicine
DX: Z79.01 Long term (current) use of anticoagulants (principal); I82.409 Acute embolism and thrombosis of unspecified deep veins of unspecified lower extremity

== ENCOUNTER → 2017-03-14 | Outpatient (CLI) | payer OTHER ==
[~2017-03-14] MED LIST changes: +ASPI1TAB15 PO; -BACITAB3 PO; -CARA1TAB2 PO; +CARA1TAB6 PO; -COLA100C3 PO; +COLA100C5 PO; -COUM2.5T11 PO; +COUM2.5T17 PO; -LEVA750T PO; +LEVA750T7 PO; +METO1TAB32 PO; -METO25TA74 PO; -MUCI600T34 PO; +MUCI600T37 PO; +PERC5TAB12 PO; -PERC5TAB6 PO; -PRED10TA FT; +PRED10TA2 FT; +SENN18TA PO; -SENN1TAB4 PO; -TRAZ150T14 PO; +TRAZ1TAB14 PO
[2017-03-14 11:21] LABS: ANION GAP 4 MEQ/L (8-16); BLOOD UREA NITROGEN 17 MG/DL (7-18); CALCIUM LEVEL 9.5 MG/DL (8.5-10.1); CARBON DIOXIDE LEVEL 34 MEQ/L (21-32); CHLORIDE LEVEL 98 MEQ/L (98-107); CREATININE FOR GFR 0.97 MG/DL (0.55-1.02); GLOMERULAR FILTRATION RATE > 60.0 (>51); GLUCOSE, FASTING 78 MG/DL (70-105); POTASSIUM SERUM 4.3 MEQ/L (3.5-5.1); SODIUM LEVEL 136 MEQ/L (136-145)
[2017-03-14 14:59] LABS: INR 1.59
== END ==
LOC: M LAB 09:58
PROVIDERS: ATTEND Family Medicine
DX: Z79.01 Long term (current) use of anticoagulants (principal); I50.32 Chronic diastolic (congestive) heart failure

== ENCOUNTER → 2017-03-27 | Outpatient (REF) | payer OTHER ==
[2017-03-27 13:33] LABS: CALCIUM LEVEL 9.7 MG/DL (8.5-10.1); CREATININE FOR GFR 1.04 MG/DL (0.55-1.02); GLOMERULAR FILTRATION RATE 57.7 (>51); POTASSIUM SERUM 4.2 MEQ/L (3.5-5.1)
== END ==
LOC: M SFHCPLAZ 10:30
PROVIDERS: ATTEND Internal Medicine
DX: Z51.81 Encounter for therapeutic drug level monitoring (principal); Z79.899 Other long term (current) drug therapy

== ENCOUNTER → 2017-04-11 | Outpatient (REF) | payer OTHER ==
[2017-04-11 19:04] LABS: CALCIUM LEVEL 8.9 MG/DL (8.5-10.1); CREATININE FOR GFR 1.19 MG/DL (0.55-1.02); GLOMERULAR FILTRATION RATE 49.4 (>51); POTASSIUM SERUM 4.6 MEQ/L (3.5-5.1)
== END ==
LOC: M LAB REF 16:19
PROVIDERS: ATTEND Family Medicine
DX: I50.32 Chronic diastolic (congestive) heart failure (principal)

== ENCOUNTER → 2017-04-30 | Outpatient (REF) | payer OTHER ==
[2017-04-30 17:30] LABS: INR 2.24
== END ==
LOC: M LAB REF 16:37
PROVIDERS: ATTEND Family Medicine
DX: Z79.01 Long term (current) use of anticoagulants (principal)

== ENCOUNTER → 2017-05-14 | Outpatient (REF) | payer OTHER ==
[2017-05-14 15:31] LABS: CALCIUM LEVEL 9.1 MG/DL (8.5-10.1); CREATININE FOR GFR 1.06 MG/DL (0.55-1.02); GLOMERULAR FILTRATION RATE 56.5 (>51); POTASSIUM SERUM 4.6 MEQ/L (3.5-5.1)
== END ==
LOC: M LAB REF 13:34
PROVIDERS: ATTEND Family Medicine
DX: R79.89 Other specified abnormal findings of blood chemistry (principal)

== ENCOUNTER → 2017-06-06 | Outpatient (CLI) | payer OTHER ==
--- NOTE | 2017-06-06 20:18 | REP ---
Clinical: Abnormal renal function tests. Technique: Real time warren scale ultrasound examination using curved array transducer. Findings: Bilateral kidneys are normal in contour, size, and echogenicity without hydronephrosis, nephrolithiasis, or cystic lesions. No perinephric fluid collections are identified. Mildly increased central sinus fat is consistent with medical renal disease. Bladder is grossly unremarkable. Right kidney measures 9.8 x 3.4 x 4.4 cm. Left kidney measures 9.0 x 4.6 x 3.8 cm. 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 Signed by Lee Wolf MD 06/06/2017 05:10 P
== END ==
LOC: M RAD 09:56
PROVIDERS: ATTEND Family Medicine
DX: R79.89 Other specified abnormal findings of blood chemistry (principal)

== ENCOUNTER → 2017-06-18 | Outpatient (REF) | payer OTHER, MEDICAID ==
[2017-06-18 12:51] LABS: INR 1.48; PROTHROMBIN TIME 18.3 SECONDS (12.4-14.5)
== END ==
LOC: M LAB REF 11:00
DX: J44.9 Chronic obstructive pulmonary disease, unspecified (principal); Z79.01 Long term (current) use of anticoagulants

== ENCOUNTER → 2017-06-25 | Outpatient (REF) | payer OTHER ==
[2017-06-25 17:06] LABS: BASO % 0.6 % (0.0-1.0); EOS # 0.2 10^3/uL (0.0-0.50); EOS % 3.8 % (0.0-3.0); HEMATOCRIT 36.9 % (36.0-47.0); HEMOGLOBIN 11.8 g/dl (12.0-16.0); IMMATURE GRANULOCYTE % 0.2 % (0-0); LYMPH # 1.6 10^3/uL (1.5-4.5); LYMPH % 25.2 % (24.0-44.0); MEAN CORPUSCULAR HEMOGLOBIN 30.2 pg (27.0-33.0); MEAN CORPUSCULAR VOLUME 94.4 fl (80.0-96.0); MONO # 0.5 10^3/uL (0.0-0.8); MONO % 8.3 % (0.0-5.0); NEUTROPHILS # 3.9 10^3/uL (1.8-7.7); NEUTROPHILS % 61.9 % (36.0-66.0); PLATELET COUNT, AUTOMATED 260 10^3/uL (150-450); RED BLOOD COUNT 3.91 10^6/uL (4.00-5.40); RED CELL DISTRIBUTION WIDTH 14.3 % (11.5-14.5); WHITE BLOOD COUNT 6.4 10^3/uL (4.0-10.0)
[2017-06-25 18:42] LABS: ALBUMIN 3.4 GM/DL (3.2-5.2); ALBUMIN/GLOBULIN RATIO 0.89 (1.00-1.93); ALKALINE PHOSPHATASE 86 U/L (45-117); ALT/SGPT 21 U/L (12-78); ANION GAP 7 MEQ/L (8-16); AST/SGOT 31 U/L (7-37); BILIRUBIN,TOTAL 0.2 MG/DL (0.2-1.0); BLOOD UREA NITROGEN 18 MG/DL (7-18); CALCIUM LEVEL 9.4 MG/DL (8.5-10.1); CARBON DIOXIDE LEVEL 31 MEQ/L (21-32); CHLORIDE LEVEL 96 MEQ/L (98-107); CREATININE FOR GFR 1.22 MG/DL (0.55-1.02); GLUCOSE, FASTING 85 MG/DL (70-105); SODIUM LEVEL 134 MEQ/L (136-145); TOTAL PROTEIN 7.2 GM/DL (6.4-8.2)
[2017-06-25 18:48] LABS: POTASSIUM SERUM 5.6 MEQ/L (3.5-5.1)
== END ==
LOC: M LAB REF 16:17
DX: J44.9 Chronic obstructive pulmonary disease, unspecified (principal)

== ENCOUNTER → 2017-07-05 | Outpatient (REF) | payer OTHER ==
[2017-07-05 15:48] LABS: ANION GAP 5 MEQ/L (8-16); BLOOD UREA NITROGEN 18 MG/DL (7-18); CALCIUM LEVEL 9.6 MG/DL (8.5-10.1); CARBON DIOXIDE LEVEL 33 MEQ/L (21-32); CHLORIDE LEVEL 97 MEQ/L (98-107); CREATININE FOR GFR 1.57 MG/DL (0.55-1.02); GLOMERULAR FILTRATION RATE 35.9 (>51); GLUCOSE, FASTING 88 MG/DL (70-105); SODIUM LEVEL 135 MEQ/L (136-145)
[2017-07-05 15:51] LABS: POTASSIUM SERUM 5.6 MEQ/L (3.5-5.1)
== END ==
LOC: M LAB REF 14:46
DX: E87.5 Hyperkalemia (principal)

== ENCOUNTER 2017-07-14 01:49 | Inpatient (IN) | payer OTHER ==
[2017-07-14] MEDS: PERCOCET 5MG/325MG TAB PO ×4 (02:45→20:35)
[2017-07-14] MEDS: ONDANSETRON 4MG/2ML VIAL (J2405) IV ×2 (03:00→11:22)
[2017-07-14] MEDS ORDERED: BUPIVACAINE HCL 0.5% 10 ML VIAL As Ordered (03:06)
[2017-07-14] MEDS ORDERED: LIDOCAINE W/EPINEPHRINE 1% 20ML VIAL As Ordered (03:06)
[2017-07-14 04:02] LABS: BASO # 0.1 10^3/uL (0.0-0.2); BASO % 0.3 % (0.0-1.0); EOS # 0.1 10^3/uL (0.0-0.50); EOS % 0.8 % (0.0-3.0); HEMATOCRIT 38.5 % (36.0-47.0); HEMOGLOBIN 12.3 g/dl (12.0-16.0); IMMATURE GRANULOCYTE # 0.1 10^3/uL (0-0); IMMATURE GRANULOCYTE % 0.3 % (0-0); LYMPH # 1.8 10^3/uL (1.5-4.5); LYMPH % 10.7 % (24.0-44.0); MEAN CORPUSCULAR HEMOGLOBIN 30.4 pg (27.0-33.0); MEAN CORPUSCULAR HGB CONC 31.9 g/dl (32.0-36.5); MEAN CORPUSCULAR VOLUME 95.3 fl (80.0-96.0); MONO % 5.9 % (0.0-5.0); NEUTROPHILS # 13.9 10^3/uL (1.8-7.7); PLATELET COUNT, AUTOMATED 248 10^3/uL (150-450); RED BLOOD COUNT 4.04 10^6/uL (4.00-5.40); RED CELL DISTRIBUTION WIDTH 14.4 % (11.5-14.5)
[2017-07-14 04:13] LABS: BEDSIDE GLUCOSE 101 MG/DL (70-105)
[2017-07-14 04:21] LABS: INR 2.55; PARTIAL THROMBOPLASTIN TIME 42.7 SECONDS (26.8-37.9); PROTHROMBIN TIME 28.5 SECONDS (12.4-14.5)
[2017-07-14 04:29] LABS: ALBUMIN 3.8 GM/DL (3.2-5.2); ALBUMIN/GLOBULIN RATIO 0.84 (1.00-1.93); ALKALINE PHOSPHATASE 95 U/L (45-117); ALT/SGPT 22 U/L (12-78); ANION GAP 5 MEQ/L (8-16); AST/SGOT 32 U/L (7-37); BILIRUBIN,DIRECT < 0.1 MG/DL (0.0-0.2); BILIRUBIN,TOTAL 0.3 MG/DL (0.2-1.0); BLOOD UREA NITROGEN 29 MG/DL (7-18); CALCIUM LEVEL 9.8 MG/DL (8.5-10.1); CARBON DIOXIDE LEVEL 29 MEQ/L (21-32); CHLORIDE LEVEL 97 MEQ/L (98-107); CREATININE FOR GFR 1.78 MG/DL (0.55-1.02); GLOMERULAR FILTRATION RATE 31.1 (>51); GLUCOSE, FASTING 102 MG/DL (70-100); LIPASE 147 U/L (73-393); SODIUM LEVEL 131 MEQ/L (136-145); TOTAL PROTEIN 8.3 GM/DL (6.4-8.2)
[2017-07-14 04:29] LABS: LACTIC ACID SEPSIS PROTOCOL 1.6 MMOL/L (0.4-2.0)
[2017-07-14 04:30] LABS: POTASSIUM SERUM 5.5 MEQ/L (3.5-5.1)
[2017-07-14] MEDS: NS 500 ML IV (05:15)
[2017-07-14] MEDS ORDERED: PERCOCET 5MG/325MG TAB PO (05:45)
[2017-07-14] MEDS ORDERED: ACETAMINOPHEN TAB 650MG DOSE (2X325MG) PO (05:45)
[2017-07-14] MEDS: IPRATROPIUM 0.5MG/ALBUTEROL 2.5MG INH SOL UD 3ML (DUONEB)(J7620) NEB (06:27)
[2017-07-14] MEDS ORDERED: FLEET ENEMA PR (07:00)
[2017-07-14] MEDS ORDERED: ALBUTEROL 90 MCG/ACT 8GM HFA INHALER INH (07:00)
[2017-07-14 08:08] LABS: HEMATOCRIT 37.4 % (36.0-47.0); HEMOGLOBIN 12.1 g/dl (12.0-16.0); MEAN CORPUSCULAR HEMOGLOBIN 30.6 pg (27.0-33.0); MEAN CORPUSCULAR HGB CONC 32.4 g/dl (32.0-36.5); MEAN CORPUSCULAR VOLUME 94.7 fl (80.0-96.0); PLATELET COUNT, AUTOMATED 210 10^3/uL (150-450); RED BLOOD COUNT 3.95 10^6/uL (4.00-5.40); RED CELL DISTRIBUTION WIDTH 14.2 % (11.5-14.5); WHITE BLOOD COUNT 12.4 10^3/uL (4.0-10.0)
[2017-07-14 08:26] LABS: ANION GAP 7 MEQ/L (8-16); BLOOD UREA NITROGEN 30 MG/DL (7-18); CALCIUM LEVEL 9.2 MG/DL (8.5-10.1); CARBON DIOXIDE LEVEL 26 MEQ/L (21-32); CHLORIDE LEVEL 99 MEQ/L (98-107); CREATININE FOR GFR 1.75 MG/DL (0.55-1.02); GLOMERULAR FILTRATION RATE 31.7 (>51); GLUCOSE, FASTING 106 MG/DL (70-100); SODIUM LEVEL 132 MEQ/L (136-145)
[2017-07-14 08:29] LABS: POTASSIUM SERUM 5.4 MEQ/L (3.5-5.1)
[2017-07-14] MEDS: DOXYCYCLINE HYCLATE 100 MG TAB PO (09:00)
[2017-07-14] MEDS ORDERED: ALPRAZolam 0.25 MG TAB PO (09:00)
[2017-07-14] MEDS: MIRALAX *UNIT DOSE* 17GM PACKET PO ×2 (10:29→20:37)
[2017-07-14] MEDS: ASPIRIN 81 MG ENTERIC TAB PO (10:30)
[2017-07-14] MEDS: VITAMIN D 1,000 INTERNATIONAL UNITS TABLET PO (10:30)
[2017-07-14] MEDS: OMEPRAZOLE 20 MG CAP PO (10:30)
[2017-07-14] MEDS: ALPRAZolam 0.5 MG TAB PO ×2 (10:30→20:33)
[2017-07-14] MEDS: BISACODYL 5 MG TAB PO (10:31)
[2017-07-14] MEDS: SOD POLYSTYRENE SULFONATE SUSP 15 GM/60 ML UD PO (10:40)
[2017-07-14] MEDS: DOXYCYCLINE HYCLATE 100 MG in D5W MINI-BAG PLUS 100 ML IV ×2 (11:20→22:45)
[2017-07-14] MEDS: NS 1,000 ML IV ×4 (11:22→22:45)
[2017-07-14] MEDS: FLEET ENEMA PR (11:24)
[2017-07-14 16:48] LABS: ANION GAP 5 MEQ/L (8-16); BLOOD UREA NITROGEN 28 MG/DL (7-18); CALCIUM LEVEL 8.6 MG/DL (8.5-10.1); CARBON DIOXIDE LEVEL 26 MEQ/L (21-32); CHLORIDE LEVEL 104 MEQ/L (98-107); CREATININE FOR GFR 1.45 MG/DL (0.55-1.02); GLOMERULAR FILTRATION RATE 39.3 (>51); GLUCOSE, FASTING 113 MG/DL (70-100); POTASSIUM SERUM 5.1 MEQ/L (3.5-5.1); SODIUM LEVEL 135 MEQ/L (136-145)
[2017-07-14 17:05] LABS: BEDSIDE GLUCOSE 114 MG/DL (70-105)
[2017-07-14] MEDS: WARFARIN SOD 2 MG TAB PO (18:15)
[2017-07-14] MEDS: traZODone 50 MG TAB PO (20:33)
[2017-07-14] MEDS: lamoTRIgine 100MG TAB PO (20:33)
[2017-07-14] MEDS: lamoTRIgine 25 MG TAB PO (20:33)
[2017-07-14] MEDS: SIMVASTATIN 20 MG TAB PO (20:33)
[2017-07-15] MEDS: PERCOCET 5MG/325MG TAB PO ×4 (04:50→18:23)
[2017-07-15] MEDS: IPRATROPIUM 0.5MG/ALBUTEROL 2.5MG INH SOL UD 3ML (DUONEB)(J7620) INH ×2 (04:54→20:32)
[2017-07-15 07:24] LABS: HEMATOCRIT 31.3 % (36.0-47.0); MEAN CORPUSCULAR VOLUME 96.9 fl (80.0-96.0); PLATELET COUNT, AUTOMATED 183 10^3/uL (150-450); RED BLOOD COUNT 3.23 10^6/uL (4.00-5.40); RED CELL DISTRIBUTION WIDTH 14.4 % (11.5-14.5); WHITE BLOOD COUNT 7.9 10^3/uL (4.0-10.0)
[2017-07-15 07:32] LABS: HEMOGLOBIN 9.7 g/dl (12.0-16.0)
[2017-07-15 07:44] LABS: ANION GAP 5 MEQ/L (8-16); BLOOD UREA NITROGEN 21 MG/DL (7-18); CALCIUM LEVEL 8.1 MG/DL (8.5-10.1); CARBON DIOXIDE LEVEL 26 MEQ/L (21-32); CHLORIDE LEVEL 106 MEQ/L (98-107); CREATININE FOR GFR 1.26 MG/DL (0.55-1.02); GLOMERULAR FILTRATION RATE 46.3 (>51); GLUCOSE, FASTING 99 MG/DL (70-100); POTASSIUM SERUM 4.4 MEQ/L (3.5-5.1); SODIUM LEVEL 137 MEQ/L (136-145)
[2017-07-15] MEDS: VITAMIN D 1,000 INTERNATIONAL UNITS TABLET PO (08:51)
[2017-07-15] MEDS: ALPRAZolam 0.5 MG TAB PO ×2 (08:51→20:21)
[2017-07-15] MEDS: ASPIRIN 81 MG ENTERIC TAB PO (08:52)
[2017-07-15] MEDS: OMEPRAZOLE 20 MG CAP PO (08:52)
[2017-07-15] MEDS: MIRALAX *UNIT DOSE* 17GM PACKET PO ×2 (08:53→20:21)
[2017-07-15] MEDS: DOXYCYCLINE HYCLATE 100 MG in D5W MINI-BAG PLUS 100 ML IV ×2 (11:43→23:02)
[2017-07-15] MEDS: WARFARIN SOD 2 MG TAB PO (17:05)
[2017-07-15] MEDS: lamoTRIgine 25 MG TAB PO (20:21)
[2017-07-15] MEDS: SIMVASTATIN 20 MG TAB PO (20:21)
[2017-07-15] MEDS: lamoTRIgine 100MG TAB PO (20:21)
[2017-07-15] MEDS: traZODone 50 MG TAB PO (20:21)
[2017-07-15] MEDS: NYSTATIN 100,000 UNITS/GM TOPICAL PWD 15 GM TOP (23:02)
[2017-07-16] MEDS: PERCOCET 5MG/325MG TAB PO ×5 (03:01→22:21)
[2017-07-16 08:37] LABS: HEMATOCRIT 29.7 % (36.0-47.0); HEMOGLOBIN 9.4 g/dl (12.0-16.0); MEAN CORPUSCULAR HEMOGLOBIN 30.7 pg (27.0-33.0); MEAN CORPUSCULAR HGB CONC 31.6 g/dl (32.0-36.5); MEAN CORPUSCULAR VOLUME 97.1 fl (80.0-96.0); PLATELET COUNT, AUTOMATED 180 10^3/uL (150-450); RED BLOOD COUNT 3.06 10^6/uL (4.00-5.40); RED CELL DISTRIBUTION WIDTH 14.3 % (11.5-14.5); WHITE BLOOD COUNT 6.8 10^3/uL (4.0-10.0)
[2017-07-16 08:48] LABS: INR 4.19; PROTHROMBIN TIME 42.6 SECONDS (12.4-14.5)
[2017-07-16 08:54] LABS: ANION GAP 7 MEQ/L (8-16); BLOOD UREA NITROGEN 14 MG/DL (7-18); CALCIUM LEVEL 8.5 MG/DL (8.5-10.1); CARBON DIOXIDE LEVEL 25 MEQ/L (21-32); CHLORIDE LEVEL 104 MEQ/L (98-107); CREATININE FOR GFR 0.97 MG/DL (0.55-1.30); GLOMERULAR FILTRATION RATE > 60.0 (>51); GLUCOSE, FASTING 83 MG/DL (70-100); POTASSIUM SERUM 4.1 MEQ/L (3.5-5.1); SODIUM LEVEL 136 MEQ/L (136-145)
[2017-07-16] MEDS: OMEPRAZOLE 20 MG CAP PO (09:03)
[2017-07-16] MEDS: VITAMIN D 1,000 INTERNATIONAL UNITS TABLET PO (09:03)
[2017-07-16] MEDS: ALPRAZolam 0.5 MG TAB PO ×2 (09:04→22:19)
[2017-07-16] MEDS: DOXYCYCLINE HYCLATE 100 MG TAB PO ×2 (09:04→22:22)
[2017-07-16] MEDS: ASPIRIN 81 MG ENTERIC TAB PO (09:04)
[2017-07-16] MEDS: MIRALAX *UNIT DOSE* 17GM PACKET PO ×2 (09:07→22:22)
[2017-07-16] MEDS ORDERED: WARFARIN SOD 1 MG TAB PO (17:00)
[2017-07-16] MEDS: traZODone 50 MG TAB PO (22:18)
[2017-07-16] MEDS: lamoTRIgine 25 MG TAB PO (22:18)
[2017-07-16] MEDS: lamoTRIgine 100MG TAB PO (22:19)
[2017-07-16] MEDS: SIMVASTATIN 20 MG TAB PO (22:22)
[2017-07-16] MEDS: IPRATROPIUM 0.5MG/ALBUTEROL 2.5MG INH SOL UD 3ML (DUONEB)(J7620) INH (23:06)
[2017-07-17] MEDS: PERCOCET 5MG/325MG TAB PO ×4 (06:59→19:12)
[2017-07-17 07:04] LABS: HEMOGLOBIN 8.8 g/dl (12.0-16.0); MEAN CORPUSCULAR HEMOGLOBIN 30.1 pg (27.0-33.0); MEAN CORPUSCULAR HGB CONC 31.4 g/dl (32.0-36.5); MEAN CORPUSCULAR VOLUME 95.9 fl (80.0-96.0); PLATELET COUNT, AUTOMATED 212 10^3/uL (150-450); RED BLOOD COUNT 2.92 10^6/uL (4.00-5.40); RED CELL DISTRIBUTION WIDTH 14.6 % (11.5-14.5); WHITE BLOOD COUNT 5.5 10^3/uL (4.0-10.0)
[2017-07-17 07:12] LABS: INR 2.89; PROTHROMBIN TIME 31.5 SECONDS (12.4-14.5)
[2017-07-17 07:15] LABS: ANION GAP 5 MEQ/L (8-16); BLOOD UREA NITROGEN 11 MG/DL (7-18); CALCIUM LEVEL 8.4 MG/DL (8.5-10.1); CARBON DIOXIDE LEVEL 30 MEQ/L (21-32); CHLORIDE LEVEL 104 MEQ/L (98-107); CREATININE FOR GFR 1.05 MG/DL (0.55-1.30); GLOMERULAR FILTRATION RATE 57.1 (>51); GLUCOSE, FASTING 93 MG/DL (70-100); POTASSIUM SERUM 4.3 MEQ/L (3.5-5.1); SODIUM LEVEL 139 MEQ/L (136-145)
[2017-07-17] MEDS: OMEPRAZOLE 20 MG CAP PO (08:29)
[2017-07-17] MEDS: MIRALAX *UNIT DOSE* 17GM PACKET PO ×2 (08:29→20:59)
[2017-07-17] MEDS: VITAMIN D 1,000 INTERNATIONAL UNITS TABLET PO (08:29)
[2017-07-17] MEDS: ALPRAZolam 0.5 MG TAB PO ×2 (08:29→20:57)
[2017-07-17] MEDS: DOXYCYCLINE HYCLATE 100 MG TAB PO ×2 (08:29→20:56)
[2017-07-17] MEDS: ASPIRIN 81 MG ENTERIC TAB PO (08:29)
[2017-07-17] MEDS: IPRATROPIUM 0.5MG/ALBUTEROL 2.5MG INH SOL UD 3ML (DUONEB)(J7620) INH ×2 (11:17→15:36)
[2017-07-17] MEDS: ONDANSETRON 4 MG TAB (S0181) PO (12:08)
[2017-07-17 12:28] LABS: HEMATOCRIT 29.2 % (36.0-47.0); HEMOGLOBIN 9.4 g/dl (12.0-16.0)
[2017-07-17] MEDS: lamoTRIgine 100MG TAB PO (20:56)
[2017-07-17] MEDS: SIMVASTATIN 20 MG TAB PO (20:56)
[2017-07-17] MEDS: traZODone 50 MG TAB PO (20:56)
[2017-07-17] MEDS: lamoTRIgine 25 MG TAB PO (20:56)
[2017-07-18] MEDS: PERCOCET 5MG/325MG TAB PO ×5 (04:36→22:49)
[2017-07-18 06:49] LABS: HEMOGLOBIN 8.3 g/dl (12.0-16.0); MEAN CORPUSCULAR HEMOGLOBIN 30.6 pg (27.0-33.0); MEAN CORPUSCULAR HGB CONC 31.9 g/dl (32.0-36.5); MEAN CORPUSCULAR VOLUME 95.9 fl (80.0-96.0); PLATELET COUNT, AUTOMATED 217 10^3/uL (150-450); RED BLOOD COUNT 2.71 10^6/uL (4.00-5.40); RED CELL DISTRIBUTION WIDTH 14.6 % (11.5-14.5); WHITE BLOOD COUNT 6.6 10^3/uL (4.0-10.0)
[2017-07-18 06:58] LABS: INR 2.09; PROTHROMBIN TIME 24.2 SECONDS (12.4-14.5)
[2017-07-18] MEDS: IPRATROPIUM 0.5MG/ALBUTEROL 2.5MG INH SOL UD 3ML (DUONEB)(J7620) INH (07:07)
[2017-07-18 07:14] LABS: ANION GAP 4 MEQ/L (8-16); BLOOD UREA NITROGEN 12 MG/DL (7-18); CALCIUM LEVEL 8.8 MG/DL (8.5-10.1); CARBON DIOXIDE LEVEL 31 MEQ/L (21-32); CHLORIDE LEVEL 102 MEQ/L (98-107); CREATININE FOR GFR 0.85 MG/DL (0.55-1.30); GLOMERULAR FILTRATION RATE > 60.0 (>51); GLUCOSE, FASTING 105 MG/DL (70-100); SODIUM LEVEL 137 MEQ/L (136-145)
[2017-07-18] MEDS: VITAMIN D 1,000 INTERNATIONAL UNITS TABLET PO (08:17)
[2017-07-18] MEDS: OMEPRAZOLE 20 MG CAP PO (08:18)
[2017-07-18] MEDS: MIRALAX *UNIT DOSE* 17GM PACKET PO ×2 (08:18→22:08)
[2017-07-18] MEDS: ONDANSETRON 4 MG TAB (S0181) PO (08:18)
[2017-07-18] MEDS: DOXYCYCLINE HYCLATE 100 MG TAB PO ×2 (08:18→22:03)
[2017-07-18] MEDS: ASPIRIN 81 MG ENTERIC TAB PO (08:18)
[2017-07-18] MEDS: ALPRAZolam 0.5 MG TAB PO ×2 (08:18→22:03)
[2017-07-18 13:51] LABS: RETIC HEMOGLOBIN EQUIVALENT 35.2 pg (24-36); RETICULOCYTE # 38.4 10^9/L (17-77); RETICULOCYTE % 1.4 % (0.5-1.5)
[2017-07-18 14:09] LABS: SLIDE REVIEW Report; SOURCE PERIPHERAL SMEAR
[2017-07-18 14:10] LABS: REASON FOR REVIEW OTHER
[2017-07-18 14:22] LABS: FERRITIN 158 NG/ML (8-252); IRON (FE) 64 UG/DL (50-170); PERCENT SATURATION 23.3 % (13.2-45.0); TOTAL IRON BINDING CAPACITY 275 UG/DL (250-450)
[2017-07-18 14:31] LABS: FOLATE 1.6 NG/ML (>5.4); VITAMIN B12 LEVEL 363 PG/ML (247-911)
[2017-07-18] MEDS ORDERED: WARFARIN SOD 2 MG TAB PO (17:00)
[2017-07-18] MEDS: lamoTRIgine 25 MG TAB PO (22:02)
[2017-07-18] MEDS: traZODone 50 MG TAB PO (22:03)
[2017-07-18] MEDS: lamoTRIgine 100MG TAB PO (22:03)
[2017-07-18] MEDS: SIMVASTATIN 20 MG TAB PO (22:03)
[2017-07-19] MEDS: PERCOCET 5MG/325MG TAB PO ×2 (04:26→09:12)
[2017-07-19] MEDS: IPRATROPIUM 0.5MG/ALBUTEROL 2.5MG INH SOL UD 3ML (DUONEB)(J7620) INH (04:56)
[2017-07-19 06:40] LABS: HEMOGLOBIN 8.5 g/dl (12.0-16.0); MEAN CORPUSCULAR HEMOGLOBIN 30.8 pg (27.0-33.0); MEAN CORPUSCULAR HGB CONC 31.5 g/dl (32.0-36.5); MEAN CORPUSCULAR VOLUME 97.8 fl (80.0-96.0); PLATELET COUNT, AUTOMATED 228 10^3/uL (150-450); RED BLOOD COUNT 2.76 10^6/uL (4.00-5.40); WHITE BLOOD COUNT 6.3 10^3/uL (4.0-10.0)
[2017-07-19 06:51] LABS: PROTHROMBIN TIME 19.5 SECONDS (12.4-14.5)
[2017-07-19 07:06] LABS: ANION GAP 6 MEQ/L (8-16); BLOOD UREA NITROGEN 12 MG/DL (7-18); CALCIUM LEVEL 8.7 MG/DL (8.5-10.1); CARBON DIOXIDE LEVEL 31 MEQ/L (21-32); CHLORIDE LEVEL 101 MEQ/L (98-107); CREATININE FOR GFR 0.89 MG/DL (0.55-1.30); GLOMERULAR FILTRATION RATE > 60.0 (>51); GLUCOSE, FASTING 92 MG/DL (70-100); POTASSIUM SERUM 4.2 MEQ/L (3.5-5.1); SODIUM LEVEL 138 MEQ/L (136-145)
[2017-07-19 08:06] LABS: TRANSFERRIN 200 mg/dL (200-370)
[2017-07-19] MEDS: ASPIRIN 81 MG ENTERIC TAB PO (10:15)
[2017-07-19] MEDS: OMEPRAZOLE 20 MG CAP PO (10:16)
[2017-07-19] MEDS: DOXYCYCLINE HYCLATE 100 MG TAB PO (10:16)
[2017-07-19] MEDS: VITAMIN D 1,000 INTERNATIONAL UNITS TABLET PO (10:16)
[2017-07-19] MEDS: ALPRAZolam 0.5 MG TAB PO (10:17)
[2017-07-19] MEDS: MIRALAX *UNIT DOSE* 17GM PACKET PO (10:20)
[2017-07-20] MEDS ORDERED: WARFARIN SOD 1 MG TAB PO (17:00)
== END 2017-07-19 12:45 | disposition home health service (06) | DRG 422 ==
LOC: M ED 01:49 → M ED INP 05:41 → M MS5PR 09:06
DX: E86.0 Dehydration (principal); J96.11 Chronic respiratory failure with hypoxia; N17.9 Acute kidney failure, unspecified; I11.0 Hypertensive heart disease with heart failure; I27.20 Pulmonary hypertension, unspecified; E55.9 Vitamin D deficiency, unspecified; Z68.41 Body mass index [BMI] 40.0-44.9, adult; I50.32 Chronic diastolic (congestive) heart failure; J44.9 Chronic obstructive pulmonary disease, unspecified; D52.9 Folate deficiency anemia, unspecified; E78.00 Pure hypercholesterolemia, unspecified; F32.9 Major depressive disorder, single episode, unspecified; E87.5 Hyperkalemia; M50.30 Other cervical disc degeneration, unspecified cervical region; E66.9 Obesity, unspecified; E87.1 Hypo-osmolality and hyponatremia; G47.00 Insomnia, unspecified; K59.00 Constipation, unspecified; F41.9 Anxiety disorder, unspecified; K21.9 Gastro-esophageal reflux disease without esophagitis; Z86.711 Personal history of pulmonary embolism; Z86.718 Personal history of other venous thrombosis and embolism; Z79.01 Long term (current) use of anticoagulants; Z79.899 Other long term (current) drug therapy; Z96.641 Presence of right artificial hip joint; Z79.82 Long term (current) use of aspirin; Z87.891 Personal history of nicotine dependence; Z88.1 Allergy status to other antibiotic agents; Z88.5 Allergy status to narcotic agent; Z88.8 Allergy status to other drugs, medicaments and biological substances; S81.012A Laceration without foreign body, left knee, initial encounter; W18.12XA Fall from or off toilet with subsequent striking against object, initial encounter; Y92.002 Bathroom of unspecified non-institutional (private) residence as the place of occurrence of the external cause

== ENCOUNTER → 2017-07-24 | Outpatient (REF) | payer OTHER ==
[2017-07-24 16:20] LABS: ANION GAP 6 MEQ/L (8-16); BLOOD UREA NITROGEN 9 MG/DL (7-18); CALCIUM LEVEL 9.2 MG/DL (8.5-10.1); CARBON DIOXIDE LEVEL 34 MEQ/L (21-32); CHLORIDE LEVEL 99 MEQ/L (98-107); CREATININE FOR GFR 1.18 MG/DL (0.55-1.30); GLOMERULAR FILTRATION RATE 49.9 (>51); GLUCOSE, FASTING 81 MG/DL (70-100); POTASSIUM SERUM 4.6 MEQ/L (3.5-5.1); SODIUM LEVEL 139 MEQ/L (136-145)
== END ==
LOC: M SFHCPLAZ 15:27
DX: I50.32 Chronic diastolic (congestive) heart failure (principal)

== ENCOUNTER → 2017-07-31 | Outpatient (REF) | payer OTHER ==
[2017-07-31 13:44] LABS: ANION GAP 6 MEQ/L (8-16); BLOOD UREA NITROGEN 10 MG/DL (7-18); CARBON DIOXIDE LEVEL 36 MEQ/L (21-32); CHLORIDE LEVEL 96 MEQ/L (98-107); GLOMERULAR FILTRATION RATE > 60.0 (>51); GLUCOSE, FASTING 89 MG/DL (70-100); SODIUM LEVEL 138 MEQ/L (136-145)
[2017-08-01 11:44] LABS: HIV SCREEN CENTAUR SOURCE NEGATIVE (NEGATIVE)
== END ==
LOC: M SFHCPLAZ 11:38
DX: I50.32 Chronic diastolic (congestive) heart failure (principal); Z51.81 Encounter for therapeutic drug level monitoring; Z79.01 Long term (current) use of anticoagulants; Z11.4 Encounter for screening for human immunodeficiency virus [HIV]
CPT/HCPCS: 86803

== ENCOUNTER 2017-08-13 16:10 | Inpatient (IN) | payer OTHER ==
[2017-08-13] MEDS ORDERED: IPRATROPIUM 0.5MG/ALBUTEROL 2.5MG INH SOL UD 3ML (DUONEB)(J7620) As Ordered (16:36)
[2017-08-13] MEDS: IPRATROPIUM 0.5MG/ALBUTEROL 2.5MG INH SOL UD 3ML (DUONEB)(J7620) NEB ×2 (16:47→21:44)
[2017-08-13] MEDS: ALBUTEROL SULFATE 2.5 MG/0.5 ML INH NEB SOLN NEB ×3 (17:00→23:36)
[2017-08-13 17:33] LABS: BASO # 0.1 10^3/uL (0.0-0.2); BASO % 0.7 % (0.0-1.0); EOS # 0.4 10^3/uL (0.0-0.50); EOS % 4.8 % (0.0-3.0); HEMATOCRIT 35.2 % (36.0-47.0); HEMOGLOBIN 10.9 g/dl (12.0-16.0); IMMATURE GRANULOCYTE % 0.2 % (0-3.0); LYMPH # 2.6 10^3/uL (1.5-4.5); MONO # 0.8 10^3/uL (0.0-0.8); MONO % 9.2 % (0.0-5.0); NEUTROPHILS # 4.6 10^3/uL (1.8-7.7); NEUTROPHILS % 54.1 % (36.0-66.0); PLATELET COUNT, AUTOMATED 271 10^3/uL (150-450); RED BLOOD COUNT 3.52 10^6/uL (4.00-5.40); RED CELL DISTRIBUTION WIDTH 14.5 % (11.5-14.5); WHITE BLOOD COUNT 8.5 10^3/uL (4.0-10.0)
[2017-08-13 18:05] LABS: ALBUMIN 3.2 GM/DL (3.2-5.2); ALBUMIN/GLOBULIN RATIO 0.91 (1.00-1.93); ALKALINE PHOSPHATASE 82 U/L (45-117); ALT/SGPT 18 U/L (12-78); ANION GAP 5 MEQ/L (8-16); AST/SGOT 26 U/L (7-37); BILIRUBIN,DIRECT < 0.1 MG/DL (0.0-0.2); BILIRUBIN,TOTAL 0.3 MG/DL (0.2-1.0); BLOOD UREA NITROGEN 13 MG/DL (7-18); CALCIUM LEVEL 9.1 MG/DL (8.5-10.1); CARBON DIOXIDE LEVEL 33 MEQ/L (21-32); CHLORIDE LEVEL 100 MEQ/L (98-107); CREATININE FOR GFR 1.17 MG/DL (0.55-1.30); GLOMERULAR FILTRATION RATE 50.4 (>51); GLUCOSE, FASTING 94 MG/DL (70-100); NT-PRO BNP 89 PG/ML (<125); POTASSIUM SERUM 4.4 MEQ/L (3.5-5.1); SODIUM LEVEL 138 MEQ/L (136-145); TOTAL PROTEIN 6.7 GM/DL (6.4-8.2)
[2017-08-13] MEDS: PERCOCET 5MG/325MG TAB PO (18:38)
[2017-08-13] MEDS ORDERED: NITROGLYCERIN 0.4 MG SUBL TABLET SL (20:00)
[2017-08-13] MEDS ORDERED: predniSONE 20 MG TAB PO (21:00)
[2017-08-13] MEDS: traZODone 50 MG TAB PO (21:12)
[2017-08-13] MEDS: OMEPRAZOLE 20 MG CAP PO (21:12)
[2017-08-13] MEDS: SIMVASTATIN 20 MG TAB PO (21:13)
[2017-08-13] MEDS: DOXYCYCLINE HYCLATE 100 MG in D5W MINI-BAG PLUS 100 ML IV (21:13)
[2017-08-13] MEDS ORDERED: HEPARIN SOD (PORCINE) 5000 UNITS/ML VIAL SC (22:00)
[2017-08-13 23:07] LABS: PARTIAL THROMBOPLASTIN TIME 41.4 SECONDS (26.8-37.9)
[2017-08-13 23:08] LABS: INR 1.77
[2017-08-13 23:09] LABS: PROTHROMBIN TIME 21.2 SECONDS (12.4-14.5)
[2017-08-13 23:42] LABS: ABG BASE EXCESS 6.8 (-2.0-2.0); ABG HCO3 33.6 MEQ/L (22.0-26.0); ABG PARTIAL PRESSURE CO2 59.5 mmHg (35.0-45.0); ABG PARTIAL PRESSURE O2 130.9 mmHg (75.0-100.0); ABG STANDARD HCO3 30.7 MEQ/L (22.0-26.0); ABG TOTAL CO2 35.5 MEQ/L (22.0-29.0)
[2017-08-14] MEDS: PERCOCET 5MG/325MG TAB PO ×4 (01:29→21:50)
[2017-08-14] MEDS: IPRATROPIUM 0.5MG/ALBUTEROL 2.5MG INH SOL UD 3ML (DUONEB)(J7620) NEB ×4 (01:39→21:15)
[2017-08-14] MEDS: ALBUTEROL SULFATE 2.5 MG/0.5 ML INH NEB SOLN NEB ×3 (04:42→16:31)
[2017-08-14 07:05] LABS: HEMATOCRIT 34.3 % (36.0-47.0); HEMOGLOBIN 10.6 g/dl (12.0-16.0); MEAN CORPUSCULAR HEMOGLOBIN 30.5 pg (27.0-33.0); MEAN CORPUSCULAR HGB CONC 30.9 g/dl (32.0-36.5); MEAN CORPUSCULAR VOLUME 98.8 fl (80.0-96.0); PLATELET COUNT, AUTOMATED 266 10^3/uL (150-450); RED BLOOD COUNT 3.47 10^6/uL (4.00-5.40); RED CELL DISTRIBUTION WIDTH 14.3 % (11.5-14.5); WHITE BLOOD COUNT 9.1 10^3/uL (4.0-10.0)
[2017-08-14 07:22] LABS: ANION GAP 5 MEQ/L (8-16); BLOOD UREA NITROGEN 14 MG/DL (7-18); CALCIUM LEVEL 9.4 MG/DL (8.5-10.1); CARBON DIOXIDE LEVEL 32 MEQ/L (21-32); CHLORIDE LEVEL 101 MEQ/L (98-107); CREATININE FOR GFR 1.13 MG/DL (0.55-1.30); GLOMERULAR FILTRATION RATE 52.5 (>51); GLUCOSE, FASTING 98 MG/DL (70-100); POTASSIUM SERUM 4.3 MEQ/L (3.5-5.1); SODIUM LEVEL 138 MEQ/L (136-145)
[2017-08-14] MEDS: lamoTRIgine 100MG TAB PO (08:43)
[2017-08-14] MEDS: OMEPRAZOLE 20 MG CAP PO ×2 (08:44→21:49)
[2017-08-14] MEDS: predniSONE 20 MG TAB PO (08:44)
[2017-08-14] MEDS: VITAMIN D 1,000 INTERNATIONAL UNITS TABLET PO (08:44)
[2017-08-14] MEDS: ASPIRIN 81 MG ENTERIC TAB PO (08:45)
[2017-08-14] MEDS: FOLIC ACID 1 MG TAB PO (08:45)
[2017-08-14] MEDS: ALPRAZolam 0.25 MG TAB PO ×2 (08:45→21:49)
[2017-08-14] MEDS: RIVAROXABAN 10 MG TAB (XARELTO) PO (08:45)
[2017-08-14] MEDS: DOXYCYCLINE HYCLATE 100 MG in D5W MINI-BAG PLUS 100 ML IV ×2 (08:56→21:51)
[2017-08-14] MEDS ORDERED: ALPRAZolam 0.5 MG TAB PO (09:00)
[2017-08-14] MEDS ORDERED: SPIRONOLACTONE 25 MG TAB PO (09:00)
[2017-08-14] MEDS ORDERED: TORSEMIDE 20 MG TAB PO (09:00)
[2017-08-14] MEDS: SIMVASTATIN 20 MG TAB PO (21:50)
[2017-08-14] MEDS: traZODone 50 MG TAB PO (21:50)
[2017-08-15] MEDS: IPRATROPIUM 0.5MG/ALBUTEROL 2.5MG INH SOL UD 3ML (DUONEB)(J7620) NEB ×5 (01:37→23:29)
[2017-08-15] MEDS: PERCOCET 5MG/325MG TAB PO ×3 (05:56→18:22)
[2017-08-15 07:17] LABS: ANION GAP 6 MEQ/L (8-16); BLOOD UREA NITROGEN 15 MG/DL (7-18); CALCIUM LEVEL 9.3 MG/DL (8.5-10.1); CARBON DIOXIDE LEVEL 30 MEQ/L (21-32); CHLORIDE LEVEL 102 MEQ/L (98-107); CREATININE FOR GFR 1.04 MG/DL (0.55-1.30); GLOMERULAR FILTRATION RATE 57.7 (>51); GLUCOSE, FASTING 103 MG/DL (70-100); POTASSIUM SERUM 3.9 MEQ/L (3.5-5.1); SODIUM LEVEL 138 MEQ/L (136-145)
[2017-08-15] MEDS: ALPRAZolam 0.25 MG TAB PO ×2 (08:28→22:19)
[2017-08-15] MEDS: OMEPRAZOLE 20 MG CAP PO ×2 (08:28→22:18)
[2017-08-15] MEDS: lamoTRIgine 100MG TAB PO (08:28)
[2017-08-15] MEDS: FOLIC ACID 1 MG TAB PO (08:28)
[2017-08-15] MEDS: RIVAROXABAN 10 MG TAB (XARELTO) PO (08:28)
[2017-08-15] MEDS: DOXYCYCLINE HYCLATE 100 MG in D5W MINI-BAG PLUS 100 ML IV ×2 (08:28→22:19)
[2017-08-15] MEDS: VITAMIN D 1,000 INTERNATIONAL UNITS TABLET PO (08:29)
[2017-08-15] MEDS: predniSONE 20 MG TAB PO ×2 (08:29→22:19)
[2017-08-15] MEDS: ASPIRIN 81 MG ENTERIC TAB PO (08:29)
[2017-08-15 08:56] LABS: HEMATOCRIT 32.8 % (36.0-47.0); HEMOGLOBIN 10.3 g/dl (12.0-16.0); MEAN CORPUSCULAR HEMOGLOBIN 30.8 pg (27.0-33.0); MEAN CORPUSCULAR HGB CONC 31.4 g/dl (32.0-36.5); MEAN CORPUSCULAR VOLUME 98.2 fl (80.0-96.0); PLATELET COUNT, AUTOMATED 288 10^3/uL (150-450); RED BLOOD COUNT 3.34 10^6/uL (4.00-5.40); RED CELL DISTRIBUTION WIDTH 14.2 % (11.5-14.5); WHITE BLOOD COUNT 11.3 10^3/uL (4.0-10.0)
[2017-08-15] MEDS: ALBUTEROL SULFATE 2.5 MG/0.5 ML INH NEB SOLN NEB (16:08)
[2017-08-15] MEDS: ADVAIR HFA 230/21MCG INHALER INH (20:45)
[2017-08-15] MEDS: SIMVASTATIN 20 MG TAB PO (22:18)
[2017-08-15] MEDS: traZODone 50 MG TAB PO (22:19)
[2017-08-16] MEDS: PERCOCET 5MG/325MG TAB PO ×4 (00:37→18:44)
[2017-08-16 06:49] LABS: HEMATOCRIT 29.8 % (36.0-47.0); HEMOGLOBIN 9.4 g/dl (12.0-16.0); MEAN CORPUSCULAR HEMOGLOBIN 30.4 pg (27.0-33.0); MEAN CORPUSCULAR HGB CONC 31.5 g/dl (32.0-36.5); MEAN CORPUSCULAR VOLUME 96.4 fl (80.0-96.0); PLATELET COUNT, AUTOMATED 264 10^3/uL (150-450); RED BLOOD COUNT 3.09 10^6/uL (4.00-5.40); RED CELL DISTRIBUTION WIDTH 14.5 % (11.5-14.5)
[2017-08-16 07:18] LABS: ANION GAP 6 MEQ/L (8-16); BLOOD UREA NITROGEN 17 MG/DL (7-18); CALCIUM LEVEL 9.3 MG/DL (8.5-10.1); CARBON DIOXIDE LEVEL 28 MEQ/L (21-32); CHLORIDE LEVEL 102 MEQ/L (98-107); CREATININE FOR GFR 0.87 MG/DL (0.55-1.30); GLOMERULAR FILTRATION RATE > 60.0 (>51); GLUCOSE, FASTING 127 MG/DL (70-100); POTASSIUM SERUM 4.6 MEQ/L (3.5-5.1); SODIUM LEVEL 136 MEQ/L (136-145)
[2017-08-16] MEDS: IPRATROPIUM 0.5MG/ALBUTEROL 2.5MG INH SOL UD 3ML (DUONEB)(J7620) NEB ×3 (08:00→17:55)
[2017-08-16] MEDS: ADVAIR HFA 230/21MCG INHALER INH ×2 (08:18→20:00)
[2017-08-16] MEDS: DOXYCYCLINE HYCLATE 100 MG in D5W MINI-BAG PLUS 100 ML IV ×2 (08:45→21:15)
[2017-08-16] MEDS: predniSONE 20 MG TAB PO ×3 (08:46→21:15)
[2017-08-16] MEDS: lamoTRIgine 100MG TAB PO (08:46)
[2017-08-16] MEDS: ASPIRIN 81 MG ENTERIC TAB PO (08:46)
[2017-08-16] MEDS: RIVAROXABAN 10 MG TAB (XARELTO) PO (08:47)
[2017-08-16] MEDS: FOLIC ACID 1 MG TAB PO (08:47)
[2017-08-16] MEDS: OMEPRAZOLE 20 MG CAP PO ×2 (08:47→21:16)
[2017-08-16] MEDS: ALPRAZolam 0.25 MG TAB PO ×2 (08:47→21:15)
[2017-08-16] MEDS: VITAMIN D 1,000 INTERNATIONAL UNITS TABLET PO (08:48)
[2017-08-16 14:44] LABS: ABG BASE EXCESS 0.2 (-2.0-2.0); ABG HCO3 24.9 MEQ/L (22.0-26.0); ABG O2 SATURATION 98.7 % (95.0-99.0); ABG PARTIAL PRESSURE CO2 40.5 mmHg (35.0-45.0); ABG PARTIAL PRESSURE O2 107.4 mmHg (75.0-100.0); ABG STANDARD HCO3 24.7 MEQ/L (22.0-26.0); ABG TOTAL CO2 26.2 MEQ/L (22.0-29.0); ABG pH (ARTERIAL) 7.407 UNITS (7.350-7.450)
[2017-08-16] MEDS: traZODone 50 MG TAB PO (21:15)
[2017-08-16] MEDS: SIMVASTATIN 20 MG TAB PO (21:16)
[2017-08-16] MEDS: ALBUTEROL SULFATE 2.5 MG/0.5 ML INH NEB SOLN NEB (21:28)
[2017-08-17] MEDS: IPRATROPIUM 0.5MG/ALBUTEROL 2.5MG INH SOL UD 3ML (DUONEB)(J7620) NEB ×4 (02:10→20:00)
[2017-08-17] MEDS: PERCOCET 5MG/325MG TAB PO ×4 (02:12→20:23)
[2017-08-17 05:56] LABS: HEMATOCRIT 29.3 % (36.0-47.0); HEMOGLOBIN 9.2 g/dl (12.0-16.0); MEAN CORPUSCULAR HEMOGLOBIN 30.3 pg (27.0-33.0); MEAN CORPUSCULAR HGB CONC 31.4 g/dl (32.0-36.5); MEAN CORPUSCULAR VOLUME 96.4 fl (80.0-96.0); PLATELET COUNT, AUTOMATED 248 10^3/uL (150-450); RED BLOOD COUNT 3.04 10^6/uL (4.00-5.40); RED CELL DISTRIBUTION WIDTH 14.2 % (11.5-14.5); WHITE BLOOD COUNT 9.2 10^3/uL (4.0-10.0)
[2017-08-17 06:16] LABS: ANION GAP 5 MEQ/L (8-16); BLOOD UREA NITROGEN 21 MG/DL (7-18); CALCIUM LEVEL 9.2 MG/DL (8.5-10.1); CARBON DIOXIDE LEVEL 29 MEQ/L (21-32); CHLORIDE LEVEL 102 MEQ/L (98-107); CREATININE FOR GFR 0.93 MG/DL (0.55-1.30); GLOMERULAR FILTRATION RATE > 60.0 (>51); GLUCOSE, FASTING 127 MG/DL (70-100); POTASSIUM SERUM 4.6 MEQ/L (3.5-5.1); SODIUM LEVEL 136 MEQ/L (136-145)
[2017-08-17] MEDS: OMEPRAZOLE 20 MG CAP PO ×2 (08:03→20:22)
[2017-08-17] MEDS: DOXYCYCLINE HYCLATE 100 MG in D5W MINI-BAG PLUS 100 ML IV ×2 (08:03→20:22)
[2017-08-17] MEDS: predniSONE 20 MG TAB PO ×2 (08:04→20:22)
[2017-08-17] MEDS: ASPIRIN 81 MG ENTERIC TAB PO (08:04)
[2017-08-17] MEDS: ALPRAZolam 0.25 MG TAB PO ×2 (08:04→20:22)
[2017-08-17] MEDS: VITAMIN D 1,000 INTERNATIONAL UNITS TABLET PO (08:04)
[2017-08-17] MEDS: lamoTRIgine 100MG TAB PO (08:04)
[2017-08-17] MEDS: RIVAROXABAN 10 MG TAB (XARELTO) PO (08:04)
[2017-08-17] MEDS: FOLIC ACID 1 MG TAB PO (08:04)
[2017-08-17] MEDS: ADVAIR HFA 230/21MCG INHALER INH ×2 (08:12→21:10)
[2017-08-17] MEDS: ALBUTEROL SULFATE 2.5 MG/0.5 ML INH NEB SOLN NEB ×2 (11:17→23:48)
[2017-08-17] MEDS: SIMVASTATIN 20 MG TAB PO (20:22)
[2017-08-17] MEDS: traZODone 50 MG TAB PO (22:14)
[2017-08-17] MEDS: DOXYCYCLINE HYCLATE 100 MG TAB PO (22:30)
[2017-08-17] MEDS: SENOKOT S TAB PO (22:31)
[2017-08-18] MEDS: PERCOCET 5MG/325MG TAB PO ×4 (02:20→20:57)
[2017-08-18] MEDS: IPRATROPIUM 0.5MG/ALBUTEROL 2.5MG INH SOL UD 3ML (DUONEB)(J7620) NEB ×5 (03:16→23:27)
[2017-08-18 07:19] LABS: HEMATOCRIT 30.8 % (36.0-47.0); HEMOGLOBIN 9.7 g/dl (12.0-16.0); MEAN CORPUSCULAR HEMOGLOBIN 30.3 pg (27.0-33.0); MEAN CORPUSCULAR HGB CONC 31.5 g/dl (32.0-36.5); MEAN CORPUSCULAR VOLUME 96.3 fl (80.0-96.0); PLATELET COUNT, AUTOMATED 252 10^3/uL (150-450); RED CELL DISTRIBUTION WIDTH 14.1 % (11.5-14.5); WHITE BLOOD COUNT 9.2 10^3/uL (4.0-10.0)
[2017-08-18 07:43] LABS: ANION GAP 6 MEQ/L (8-16); BLOOD UREA NITROGEN 26 MG/DL (7-18); CALCIUM LEVEL 9.3 MG/DL (8.5-10.1); CARBON DIOXIDE LEVEL 28 MEQ/L (21-32); CHLORIDE LEVEL 103 MEQ/L (98-107); CREATININE FOR GFR 0.79 MG/DL (0.55-1.30); GLOMERULAR FILTRATION RATE > 60.0 (>51); GLUCOSE, FASTING 125 MG/DL (70-100); POTASSIUM SERUM 4.4 MEQ/L (3.5-5.1); SODIUM LEVEL 137 MEQ/L (136-145)
[2017-08-18] MEDS: ADVAIR HFA 230/21MCG INHALER INH ×2 (08:03→20:47)
[2017-08-18] MEDS: ASPIRIN 81 MG ENTERIC TAB PO (08:26)
[2017-08-18] MEDS: predniSONE 20 MG TAB PO ×2 (08:26→20:56)
[2017-08-18] MEDS: RIVAROXABAN 10 MG TAB (XARELTO) PO (08:26)
[2017-08-18] MEDS: FOLIC ACID 1 MG TAB PO (08:26)
[2017-08-18] MEDS: VITAMIN D 1,000 INTERNATIONAL UNITS TABLET PO (08:27)
[2017-08-18] MEDS: SENOKOT S TAB PO ×2 (08:27→20:56)
[2017-08-18] MEDS: OMEPRAZOLE 20 MG CAP PO ×2 (08:27→20:56)
[2017-08-18] MEDS: lamoTRIgine 100MG TAB PO (08:27)
[2017-08-18] MEDS: DOXYCYCLINE HYCLATE 100 MG TAB PO ×2 (08:27→20:56)
[2017-08-18] MEDS: ALPRAZolam 0.25 MG TAB PO ×2 (08:27→20:55)
[2017-08-18] MEDS: MOM 30ML SUSPENSION UDC PO (10:20)
[2017-08-18] MEDS: SIMVASTATIN 20 MG TAB PO (20:56)
[2017-08-18] MEDS: traZODone 50 MG TAB PO (22:27)
[2017-08-19] MEDS: PERCOCET 5MG/325MG TAB PO ×4 (03:08→21:13)
[2017-08-19] MEDS: ALBUTEROL SULFATE 2.5 MG/0.5 ML INH NEB SOLN NEB (03:29)
[2017-08-19] MEDS: LACTULOSE 20 GM/30 ML SYRUP UD PO ×3 (03:56→17:51)
[2017-08-19 07:20] LABS: HEMATOCRIT 31.1 % (36.0-47.0); HEMOGLOBIN 9.8 g/dl (12.0-16.0); MEAN CORPUSCULAR HEMOGLOBIN 30.4 pg (27.0-33.0); MEAN CORPUSCULAR HGB CONC 31.5 g/dl (32.0-36.5); MEAN CORPUSCULAR VOLUME 96.6 fl (80.0-96.0); PLATELET COUNT, AUTOMATED 263 10^3/uL (150-450); RED BLOOD COUNT 3.22 10^6/uL (4.00-5.40); RED CELL DISTRIBUTION WIDTH 14.1 % (11.5-14.5); WHITE BLOOD COUNT 8.6 10^3/uL (4.0-10.0)
[2017-08-19] MEDS: ADVAIR HFA 230/21MCG INHALER INH ×2 (07:27→20:00)
[2017-08-19] MEDS: IPRATROPIUM 0.5MG/ALBUTEROL 2.5MG INH SOL UD 3ML (DUONEB)(J7620) NEB ×3 (07:27→20:47)
[2017-08-19 07:49] LABS: ANION GAP 4 MEQ/L (8-16); BLOOD UREA NITROGEN 27 MG/DL (7-18); CALCIUM LEVEL 9.2 MG/DL (8.5-10.1); CARBON DIOXIDE LEVEL 31 MEQ/L (21-32); CHLORIDE LEVEL 102 MEQ/L (98-107); CREATININE FOR GFR 0.87 MG/DL (0.55-1.30); GLOMERULAR FILTRATION RATE > 60.0 (>51); GLUCOSE, FASTING 123 MG/DL (70-100); POTASSIUM SERUM 4.7 MEQ/L (3.5-5.1); SODIUM LEVEL 137 MEQ/L (136-145)
[2017-08-19] MEDS: DOXYCYCLINE HYCLATE 100 MG TAB PO ×2 (08:17→21:13)
[2017-08-19] MEDS: ASPIRIN 81 MG ENTERIC TAB PO (08:17)
[2017-08-19] MEDS: VITAMIN D 1,000 INTERNATIONAL UNITS TABLET PO (08:17)
[2017-08-19] MEDS: MOM 30ML SUSPENSION UDC PO (08:17)
[2017-08-19] MEDS: OMEPRAZOLE 20 MG CAP PO ×2 (08:18→21:14)
[2017-08-19] MEDS: lamoTRIgine 100MG TAB PO (08:18)
[2017-08-19] MEDS: RIVAROXABAN 10 MG TAB (XARELTO) PO (08:18)
[2017-08-19] MEDS: predniSONE 20 MG TAB PO ×2 (08:18→21:13)
[2017-08-19] MEDS: ALPRAZolam 0.25 MG TAB PO ×2 (08:19→21:12)
[2017-08-19] MEDS: FOLIC ACID 1 MG TAB PO (08:19)
[2017-08-19] MEDS: SENOKOT S TAB PO (08:20)
[2017-08-19] MEDS: TORSEMIDE 20 MG TAB PO (12:24)
[2017-08-19] MEDS: SPIRONOLACTONE 50 MG TAB PO (12:24)
[2017-08-19] MEDS: SIMVASTATIN 20 MG TAB PO (21:13)
[2017-08-19] MEDS: traZODone 50 MG TAB PO (22:32)
[2017-08-20] MEDS: IPRATROPIUM 0.5MG/ALBUTEROL 2.5MG INH SOL UD 3ML (DUONEB)(J7620) NEB ×4 (00:57→20:00)
[2017-08-20] MEDS: LACTULOSE 20 GM/30 ML SYRUP UD PO ×5 (01:12→23:09)
[2017-08-20] MEDS: PERCOCET 5MG/325MG TAB PO ×4 (04:35→22:58)
[2017-08-20 06:31] LABS: HEMATOCRIT 31.6 % (36.0-47.0); MEAN CORPUSCULAR HEMOGLOBIN 30.5 pg (27.0-33.0); MEAN CORPUSCULAR HGB CONC 31.6 g/dl (32.0-36.5); MEAN CORPUSCULAR VOLUME 96.3 fl (80.0-96.0); PLATELET COUNT, AUTOMATED 233 10^3/uL (150-450); RED BLOOD COUNT 3.28 10^6/uL (4.00-5.40); RED CELL DISTRIBUTION WIDTH 14.2 % (11.5-14.5); WHITE BLOOD COUNT 9.2 10^3/uL (4.0-10.0)
[2017-08-20 06:46] LABS: ANION GAP 3 MEQ/L (8-16); BLOOD UREA NITROGEN 29 MG/DL (7-18); CALCIUM LEVEL 8.8 MG/DL (8.5-10.1); CARBON DIOXIDE LEVEL 31 MEQ/L (21-32); CHLORIDE LEVEL 101 MEQ/L (98-107); CREATININE FOR GFR 0.97 MG/DL (0.55-1.30); GLOMERULAR FILTRATION RATE > 60.0 (>51); GLUCOSE, FASTING 127 MG/DL (70-100); POTASSIUM SERUM 4.9 MEQ/L (3.5-5.1); SODIUM LEVEL 135 MEQ/L (136-145)
[2017-08-20] MEDS: ADVAIR HFA 230/21MCG INHALER INH ×2 (08:30→21:32)
[2017-08-20] MEDS: ALPRAZolam 0.25 MG TAB PO ×2 (09:27→20:37)
[2017-08-20] MEDS: TORSEMIDE 20 MG TAB PO (09:31)
[2017-08-20] MEDS: RIVAROXABAN 10 MG TAB (XARELTO) PO (09:32)
[2017-08-20] MEDS: SPIRONOLACTONE 50 MG TAB PO (09:32)
[2017-08-20] MEDS: FOLIC ACID 1 MG TAB PO (09:32)
[2017-08-20] MEDS: ASPIRIN 81 MG ENTERIC TAB PO (09:32)
[2017-08-20] MEDS: predniSONE 20 MG TAB PO ×2 (09:32→20:37)
[2017-08-20] MEDS: DOXYCYCLINE HYCLATE 100 MG TAB PO ×2 (09:32→20:38)
[2017-08-20] MEDS: lamoTRIgine 100MG TAB PO (09:33)
[2017-08-20] MEDS: VITAMIN D 1,000 INTERNATIONAL UNITS TABLET PO (09:34)
[2017-08-20] MEDS: OMEPRAZOLE 20 MG CAP PO ×2 (09:34→20:37)
[2017-08-20] MEDS: SIMVASTATIN 20 MG TAB PO (20:37)
[2017-08-20] MEDS: traZODone 50 MG TAB PO (20:38)
[2017-08-21] MEDS: IPRATROPIUM 0.5MG/ALBUTEROL 2.5MG INH SOL UD 3ML (DUONEB)(J7620) NEB ×4 (02:26→20:00)
[2017-08-21] MEDS: LACTULOSE 20 GM/30 ML SYRUP UD PO ×4 (05:01→23:04)
[2017-08-21] MEDS: PERCOCET 5MG/325MG TAB PO ×3 (05:44→18:28)
[2017-08-21] MEDS: ADVAIR HFA 230/21MCG INHALER INH ×2 (08:00→21:29)
[2017-08-21] MEDS: ALPRAZolam 0.25 MG TAB PO ×2 (08:40→20:08)
[2017-08-21] MEDS: lamoTRIgine 100MG TAB PO (08:41)
[2017-08-21] MEDS: FOLIC ACID 1 MG TAB PO (08:41)
[2017-08-21] MEDS: SPIRONOLACTONE 50 MG TAB PO (08:42)
[2017-08-21] MEDS: DOXYCYCLINE HYCLATE 100 MG TAB PO (08:42)
[2017-08-21] MEDS: OMEPRAZOLE 20 MG CAP PO ×2 (08:42→20:08)
[2017-08-21] MEDS: VITAMIN D 1,000 INTERNATIONAL UNITS TABLET PO (08:42)
[2017-08-21] MEDS: RIVAROXABAN 10 MG TAB (XARELTO) PO (08:42)
[2017-08-21] MEDS: TORSEMIDE 20 MG TAB PO (08:42)
[2017-08-21] MEDS: ASPIRIN 81 MG ENTERIC TAB PO (08:42)
[2017-08-21] MEDS: predniSONE 20 MG TAB PO (08:43)
[2017-08-21] MEDS: traZODone 50 MG TAB PO (20:07)
[2017-08-21] MEDS: SIMVASTATIN 20 MG TAB PO (20:08)
[2017-08-22] MEDS: PERCOCET 5MG/325MG TAB PO ×2 (01:00→07:03)
[2017-08-22] MEDS: IPRATROPIUM 0.5MG/ALBUTEROL 2.5MG INH SOL UD 3ML (DUONEB)(J7620) NEB ×2 (01:47→07:18)
[2017-08-22] MEDS: LACTULOSE 20 GM/30 ML SYRUP UD PO ×2 (05:16→11:47)
[2017-08-22] MEDS: ADVAIR HFA 230/21MCG INHALER INH (07:18)
[2017-08-22] MEDS: ALPRAZolam 0.25 MG TAB PO (08:03)
[2017-08-22] MEDS: VITAMIN D 1,000 INTERNATIONAL UNITS TABLET PO (08:03)
[2017-08-22] MEDS: ASPIRIN 81 MG ENTERIC TAB PO (08:04)
[2017-08-22] MEDS: SPIRONOLACTONE 50 MG TAB PO (08:04)
[2017-08-22] MEDS: RIVAROXABAN 10 MG TAB (XARELTO) PO (08:04)
[2017-08-22] MEDS: FOLIC ACID 1 MG TAB PO (08:04)
[2017-08-22] MEDS: OMEPRAZOLE 20 MG CAP PO (08:04)
[2017-08-22] MEDS: lamoTRIgine 100MG TAB PO (08:04)
[2017-08-22] MEDS: TORSEMIDE 20 MG TAB PO (08:05)
[2017-08-22] MEDS: predniSONE 20 MG TAB PO (08:05)
== END 2017-08-22 12:20 | disposition home health service (06) | DRG 140 ==
LOC: M MSPAV 08-14 13:05 → M ED 16:10 → M ED INP 21:20
DX: J44.1 Chronic obstructive pulmonary disease with (acute) exacerbation (principal); I50.32 Chronic diastolic (congestive) heart failure; I27.20 Pulmonary hypertension, unspecified; Z99.81 Dependence on supplemental oxygen; E78.5 Hyperlipidemia, unspecified; K21.9 Gastro-esophageal reflux disease without esophagitis; F32.9 Major depressive disorder, single episode, unspecified; K59.00 Constipation, unspecified; F41.9 Anxiety disorder, unspecified; Z86.718 Personal history of other venous thrombosis and embolism; Z79.01 Long term (current) use of anticoagulants; Z79.82 Long term (current) use of aspirin; Z79.899 Other long term (current) drug therapy; Z88.2 Allergy status to sulfonamides; Z88.0 Allergy status to penicillin; Z88.5 Allergy status to narcotic agent; Z88.8 Allergy status to other drugs, medicaments and biological substances; Z96.641 Presence of right artificial hip joint; Z87.891 Personal history of nicotine dependence

== ENCOUNTER 2017-08-25 13:00 | Inpatient (IN) | payer OTHER ==
[2017-08-25] MEDS: dexameTHASONE 20 MG/5 ML VIAL (J1100) IV (13:36)
[2017-08-25] MEDS: IPRATROPIUM 0.5MG/ALBUTEROL 2.5MG INH SOL UD 3ML (DUONEB)(J7620) NEB ×2 (13:43→16:04)
[2017-08-25 13:49] LABS: BASO % 0.1 % (0.0-1.0); HEMATOCRIT 37.1 % (36.0-47.0); HEMOGLOBIN 11.7 g/dl (12.0-16.0); IMMATURE GRANULOCYTE % 1.1 % (0-3.0); LYMPH # 0.7 10^3/uL (1.5-4.5); LYMPH % 4.7 % (24.0-44.0); MEAN CORPUSCULAR HEMOGLOBIN 30.5 pg (27.0-33.0); MEAN CORPUSCULAR HGB CONC 31.5 g/dl (32.0-36.5); MEAN CORPUSCULAR VOLUME 96.9 fl (80.0-96.0); MONO # 0.4 10^3/uL (0.0-0.8); MONO % 3.1 % (0.0-5.0); NEUTROPHILS # 12.7 10^3/uL (1.8-7.7); PLATELET COUNT, AUTOMATED 231 10^3/uL (150-450); RED BLOOD COUNT 3.83 10^6/uL (4.00-5.40); RED CELL DISTRIBUTION WIDTH 14.3 % (11.5-14.5)
[2017-08-25 14:00] LABS: INR 1.47; PROTHROMBIN TIME 18.2 SECONDS (12.4-14.5)
[2017-08-25 14:13] LABS: ABG BASE EXCESS 1.1 (-2.0-2.0); ABG HCO3 26.4 MEQ/L (22.0-26.0); ABG O2 SATURATION 96.9 % (95.0-99.0); ABG PARTIAL PRESSURE CO2 44.6 mmHg (35.0-45.0); ABG PARTIAL PRESSURE O2 80.7 mmHg (75.0-100.0); ABG STANDARD HCO3 25.4 MEQ/L (22.0-26.0); ABG TOTAL CO2 27.8 MEQ/L (22.0-29.0)
[2017-08-25 14:13] LABS: LACTIC ACID SEPSIS PROTOCOL 1.6 MMOL/L (0.4-2.0)
[2017-08-25 14:15] LABS: ALBUMIN 3.3 GM/DL (3.2-5.2); ALKALINE PHOSPHATASE 69 U/L (45-117); ALT/SGPT 44 U/L (12-78); ANION GAP 6 MEQ/L (8-16); AST/SGOT 26 U/L (7-37); BILIRUBIN,DIRECT 0.1 MG/DL (0.0-0.2); BILIRUBIN,TOTAL 0.3 MG/DL (0.2-1.0); BLOOD UREA NITROGEN 17 MG/DL (7-18); C REACTIVE PROTEIN QUANTITATIV 3.49 MG/DL (0.00-0.30); CALCIUM LEVEL 8.5 MG/DL (8.5-10.1); CARBON DIOXIDE LEVEL 30 MEQ/L (21-32); CHLORIDE LEVEL 99 MEQ/L (98-107); CPK CREATINE PHOSPHOKINASE 31 U/L (26-192); CREATININE FOR GFR 0.86 MG/DL (0.55-1.30); GLOMERULAR FILTRATION RATE > 60.0 (>51); GLUCOSE, FASTING 129 MG/DL (70-100); POTASSIUM SERUM 4.7 MEQ/L (3.5-5.1); SODIUM LEVEL 135 MEQ/L (136-145); TOTAL PROTEIN 6.6 GM/DL (6.4-8.2); TROPONIN I < 0.02 NG/ML (< 0.10)
[2017-08-25 14:21] LABS: MB/CK RELATIVE INDEX 3.22 (< OR =4); NT-PRO BNP 429 PG/ML (<125); THYROID STIMULATING HORMONE 0.377 uIU/ML (0.358-3.740)
[2017-08-25] MEDS: MEROPENEM INJ 1 GM in APPROPRIATE DILUENT 1 EA IV (14:48)
[2017-08-25] MEDS: predniSONE 20 MG TAB PO ×2 (16:00→20:42)
[2017-08-25] MEDS: LEVALBUTEROL 1.25 MG/0.5 ML CONCENTRATE NEB NEB ×3 (16:22→23:41)
[2017-08-25] MEDS: DOXYCYCLINE HYCLATE 100 MG TAB PO (18:03)
[2017-08-25] MEDS: PERCOCET 5MG/325MG TAB PO (18:35)
[2017-08-25] MEDS: OMEPRAZOLE 20 MG CAP PO (20:42)
[2017-08-25] MEDS: ALPRAZolam 0.5 MG TAB PO (20:42)
[2017-08-25] MEDS: SIMVASTATIN 20 MG TAB PO (20:42)
[2017-08-25] MEDS: traZODone 50 MG TAB PO (20:42)
[2017-08-26] MEDS: PERCOCET 5MG/325MG TAB PO ×4 (00:47→19:21)
[2017-08-26] MEDS: LEVALBUTEROL 1.25 MG/0.5 ML CONCENTRATE NEB NEB ×6 (04:44→22:40)
[2017-08-26] MEDS: DOXYCYCLINE HYCLATE 100 MG TAB PO ×2 (05:40→16:54)
[2017-08-26 05:51] LABS: HEMATOCRIT 33.8 % (36.0-47.0); HEMOGLOBIN 10.6 g/dl (12.0-16.0); MEAN CORPUSCULAR HEMOGLOBIN 29.9 pg (27.0-33.0); MEAN CORPUSCULAR HGB CONC 31.4 g/dl (32.0-36.5); MEAN CORPUSCULAR VOLUME 95.5 fl (80.0-96.0); PLATELET COUNT, AUTOMATED 214 10^3/uL (150-450); RED BLOOD COUNT 3.54 10^6/uL (4.00-5.40); WHITE BLOOD COUNT 7.2 10^3/uL (4.0-10.0)
[2017-08-26 06:07] LABS: ANION GAP 5 MEQ/L (8-16); BLOOD UREA NITROGEN 22 MG/DL (7-18); CALCIUM LEVEL 8.5 MG/DL (8.5-10.1); CARBON DIOXIDE LEVEL 30 MEQ/L (21-32); CHLORIDE LEVEL 103 MEQ/L (98-107); CREATININE FOR GFR 0.89 MG/DL (0.55-1.30); GLOMERULAR FILTRATION RATE > 60.0 (>51); GLUCOSE, FASTING 153 MG/DL (70-100); POTASSIUM SERUM 4.5 MEQ/L (3.5-5.1); SODIUM LEVEL 138 MEQ/L (136-145)
[2017-08-26] MEDS: OMEPRAZOLE 20 MG CAP PO ×2 (08:34→20:54)
[2017-08-26] MEDS: ASPIRIN 81 MG ENTERIC TAB PO (08:34)
[2017-08-26] MEDS: TORSEMIDE 20 MG TAB PO (08:34)
[2017-08-26] MEDS: FOLIC ACID 1 MG TAB PO (08:34)
[2017-08-26] MEDS: VITAMIN D 1,000 INTERNATIONAL UNITS TABLET PO (08:34)
[2017-08-26] MEDS: predniSONE 20 MG TAB PO ×3 (08:34→20:54)
[2017-08-26] MEDS: RIVAROXABAN 10 MG TAB (XARELTO) PO (08:34)
[2017-08-26] MEDS: ALPRAZolam 0.5 MG TAB PO ×2 (08:34→20:54)
[2017-08-26] MEDS: SPIRONOLACTONE 50 MG TAB PO (08:34)
[2017-08-26] MEDS: OSELTAMIVIR PHOSPHATE 75 MG CAP (TAMIFLU) PO ×2 (11:14→20:54)
[2017-08-26] MEDS: SIMVASTATIN 20 MG TAB PO (20:54)
[2017-08-26] MEDS: traZODone 50 MG TAB PO (20:54)
[2017-08-27] MEDS: PERCOCET 5MG/325MG TAB PO ×4 (01:47→20:23)
[2017-08-27] MEDS: LEVALBUTEROL 1.25 MG/0.5 ML CONCENTRATE NEB NEB ×6 (04:59→23:26)
[2017-08-27] MEDS: DOXYCYCLINE HYCLATE 100 MG TAB PO (05:51)
[2017-08-27] MEDS: ONDANSETRON 4MG/2ML VIAL (J2405) IV ×2 (05:51→20:22)
[2017-08-27 06:15] LABS: HEMATOCRIT 35.2 % (36.0-47.0); MEAN CORPUSCULAR HEMOGLOBIN 30.2 pg (27.0-33.0); MEAN CORPUSCULAR HGB CONC 31.3 g/dl (32.0-36.5); MEAN CORPUSCULAR VOLUME 96.7 fl (80.0-96.0); PLATELET COUNT, AUTOMATED 242 10^3/uL (150-450); RED BLOOD COUNT 3.64 10^6/uL (4.00-5.40); RED CELL DISTRIBUTION WIDTH 14.2 % (11.5-14.5); WHITE BLOOD COUNT 11.8 10^3/uL (4.0-10.0)
[2017-08-27 06:31] LABS: ANION GAP 5 MEQ/L (8-16); BLOOD UREA NITROGEN 27 MG/DL (7-18); C REACTIVE PROTEIN QUANTITATIV 1.54 MG/DL (0.00-0.30); CALCIUM LEVEL 8.7 MG/DL (8.5-10.1); CARBON DIOXIDE LEVEL 32 MEQ/L (21-32); CHLORIDE LEVEL 102 MEQ/L (98-107); CREATININE FOR GFR 0.91 MG/DL (0.55-1.30); GLOMERULAR FILTRATION RATE > 60.0 (>51); GLUCOSE, FASTING 134 MG/DL (70-100); POTASSIUM SERUM 4.2 MEQ/L (3.5-5.1); SODIUM LEVEL 139 MEQ/L (136-145)
[2017-08-27] MEDS: predniSONE 20 MG TAB PO ×2 (08:01→21:11)
[2017-08-27] MEDS: ALPRAZolam 0.5 MG TAB PO ×2 (08:01→21:11)
[2017-08-27] MEDS: OMEPRAZOLE 20 MG CAP PO ×2 (08:01→21:10)
[2017-08-27] MEDS: VITAMIN D 1,000 INTERNATIONAL UNITS TABLET PO (08:02)
[2017-08-27] MEDS: RIVAROXABAN 10 MG TAB (XARELTO) PO (08:02)
[2017-08-27] MEDS: OSELTAMIVIR PHOSPHATE 75 MG CAP (TAMIFLU) PO ×2 (08:02→21:11)
[2017-08-27] MEDS: ASPIRIN 81 MG ENTERIC TAB PO (08:02)
[2017-08-27] MEDS: SPIRONOLACTONE 50 MG TAB PO (08:02)
[2017-08-27] MEDS: FOLIC ACID 1 MG TAB PO (08:02)
[2017-08-27] MEDS: TORSEMIDE 20 MG TAB PO (08:02)
[2017-08-27] MEDS: BENZONATATE 100 MG CAP PO ×2 (11:20→21:11)
[2017-08-27] MEDS: SENOKOT S TAB PO (21:11)
[2017-08-27] MEDS: SIMVASTATIN 20 MG TAB PO (21:11)
[2017-08-27] MEDS: traZODone 50 MG TAB PO (21:11)
[2017-08-28] MEDS: LEVALBUTEROL 1.25 MG/0.5 ML CONCENTRATE NEB NEB ×6 (03:34→23:14)
[2017-08-28] MEDS: PERCOCET 5MG/325MG TAB PO ×4 (03:52→22:21)
[2017-08-28 06:08] LABS: HEMOGLOBIN 10.9 g/dl (12.0-16.0); MEAN CORPUSCULAR HEMOGLOBIN 29.7 pg (27.0-33.0); MEAN CORPUSCULAR HGB CONC 31.1 g/dl (32.0-36.5); MEAN CORPUSCULAR VOLUME 95.4 fl (80.0-96.0); PLATELET COUNT, AUTOMATED 253 10^3/uL (150-450); RED BLOOD COUNT 3.67 10^6/uL (4.00-5.40); RED CELL DISTRIBUTION WIDTH 14.2 % (11.5-14.5); WHITE BLOOD COUNT 9.7 10^3/uL (4.0-10.0)
[2017-08-28] MEDS: ONDANSETRON 4 MG ORAL DISINTEGRATING TAB (S0181) SL (06:16)
[2017-08-28 06:26] LABS: ANION GAP 5 MEQ/L (8-16); BLOOD UREA NITROGEN 32 MG/DL (7-18); C REACTIVE PROTEIN QUANTITATIV 0.82 MG/DL (0.00-0.30); CALCIUM LEVEL 8.5 MG/DL (8.5-10.1); CARBON DIOXIDE LEVEL 32 MEQ/L (21-32); CHLORIDE LEVEL 101 MEQ/L (98-107); CREATININE FOR GFR 0.83 MG/DL (0.55-1.30); GLOMERULAR FILTRATION RATE > 60.0 (>51); GLUCOSE, FASTING 139 MG/DL (70-100); POTASSIUM SERUM 4.4 MEQ/L (3.5-5.1); SODIUM LEVEL 138 MEQ/L (136-145)
[2017-08-28] MEDS: VITAMIN D 1,000 INTERNATIONAL UNITS TABLET PO (08:07)
[2017-08-28] MEDS: predniSONE 20 MG TAB PO ×2 (08:08→22:19)
[2017-08-28] MEDS: OSELTAMIVIR PHOSPHATE 75 MG CAP (TAMIFLU) PO ×2 (08:08→22:20)
[2017-08-28] MEDS: BENZONATATE 100 MG CAP PO ×3 (08:08→22:19)
[2017-08-28] MEDS: OMEPRAZOLE 20 MG CAP PO ×2 (08:08→22:19)
[2017-08-28] MEDS: TORSEMIDE 20 MG TAB PO (08:08)
[2017-08-28] MEDS: RIVAROXABAN 10 MG TAB (XARELTO) PO (08:09)
[2017-08-28] MEDS: SPIRONOLACTONE 50 MG TAB PO (08:09)
[2017-08-28] MEDS: ASPIRIN 81 MG ENTERIC TAB PO (08:09)
[2017-08-28] MEDS: ALPRAZolam 0.5 MG TAB PO ×2 (08:09→22:20)
[2017-08-28] MEDS: FOLIC ACID 1 MG TAB PO (08:09)
[2017-08-28] MEDS: SENOKOT S TAB PO (22:18)
[2017-08-28] MEDS: SIMVASTATIN 20 MG TAB PO (22:20)
[2017-08-28] MEDS: traZODone 50 MG TAB PO (22:20)
[2017-08-29] MEDS: LEVALBUTEROL 1.25 MG/0.5 ML CONCENTRATE NEB NEB ×6 (03:17→23:26)
[2017-08-29] MEDS: BENZONATATE 100 MG CAP PO (04:31)
[2017-08-29] MEDS: PERCOCET 5MG/325MG TAB PO ×3 (04:32→17:57)
[2017-08-29 06:40] LABS: HEMATOCRIT 34.7 % (36.0-47.0); MEAN CORPUSCULAR HEMOGLOBIN 29.6 pg (27.0-33.0); MEAN CORPUSCULAR HGB CONC 31.7 g/dl (32.0-36.5); MEAN CORPUSCULAR VOLUME 93.3 fl (80.0-96.0); PLATELET COUNT, AUTOMATED 260 10^3/uL (150-450); RED BLOOD COUNT 3.72 10^6/uL (4.00-5.40); RED CELL DISTRIBUTION WIDTH 13.9 % (11.5-14.5); WHITE BLOOD COUNT 8.2 10^3/uL (4.0-10.0)
[2017-08-29 07:04] LABS: ANION GAP 6 MEQ/L (8-16); BLOOD UREA NITROGEN 27 MG/DL (7-18); C REACTIVE PROTEIN QUANTITATIV 0.39 MG/DL (0.00-0.30); CALCIUM LEVEL 8.9 MG/DL (8.5-10.1); CARBON DIOXIDE LEVEL 33 MEQ/L (21-32); CHLORIDE LEVEL 97 MEQ/L (98-107); CREATININE FOR GFR 0.82 MG/DL (0.55-1.30); GLOMERULAR FILTRATION RATE > 60.0 (>51); GLUCOSE, FASTING 129 MG/DL (70-100); POTASSIUM SERUM 4.3 MEQ/L (3.5-5.1); SODIUM LEVEL 136 MEQ/L (136-145)
[2017-08-29] MEDS: OMEPRAZOLE 20 MG CAP PO ×2 (08:44→20:32)
[2017-08-29] MEDS: ALPRAZolam 0.5 MG TAB PO ×2 (08:44→20:32)
[2017-08-29] MEDS: SPIRONOLACTONE 50 MG TAB PO (08:44)
[2017-08-29] MEDS: VITAMIN D 1,000 INTERNATIONAL UNITS TABLET PO (08:44)
[2017-08-29] MEDS: RIVAROXABAN 10 MG TAB (XARELTO) PO (08:44)
[2017-08-29] MEDS: predniSONE 20 MG TAB PO ×2 (08:44→20:32)
[2017-08-29] MEDS: TORSEMIDE 20 MG TAB PO (08:44)
[2017-08-29] MEDS: OSELTAMIVIR PHOSPHATE 75 MG CAP (TAMIFLU) PO ×2 (08:45→20:32)
[2017-08-29] MEDS: FOLIC ACID 1 MG TAB PO (08:45)
[2017-08-29] MEDS: ASPIRIN 81 MG ENTERIC TAB PO (08:45)
[2017-08-29] MEDS: SENOKOT S TAB PO (20:32)
[2017-08-29] MEDS: SIMVASTATIN 20 MG TAB PO (20:32)
[2017-08-29] MEDS: traZODone 50 MG TAB PO (21:56)
[2017-08-30] MEDS: PERCOCET 5MG/325MG TAB PO ×4 (00:06→18:33)
[2017-08-30] MEDS: LEVALBUTEROL 1.25 MG/0.5 ML CONCENTRATE NEB NEB ×6 (02:58→23:04)
[2017-08-30 06:13] LABS: HEMATOCRIT 35.8 % (36.0-47.0); HEMOGLOBIN 11.6 g/dl (12.0-16.0); MEAN CORPUSCULAR HEMOGLOBIN 29.8 pg (27.0-33.0); MEAN CORPUSCULAR HGB CONC 32.4 g/dl (32.0-36.5); PLATELET COUNT, AUTOMATED 258 10^3/uL (150-450); RED BLOOD COUNT 3.89 10^6/uL (4.00-5.40); RED CELL DISTRIBUTION WIDTH 13.9 % (11.5-14.5); WHITE BLOOD COUNT 8.8 10^3/uL (4.0-10.0)
[2017-08-30] MEDS: FLEET ENEMA PR (06:18)
[2017-08-30 06:31] LABS: ANION GAP 5 MEQ/L (8-16); BLOOD UREA NITROGEN 29 MG/DL (7-18); C REACTIVE PROTEIN QUANTITATIV < 0.30 MG/DL (0.00-0.30); CALCIUM LEVEL 8.9 MG/DL (8.5-10.1); CARBON DIOXIDE LEVEL 34 MEQ/L (21-32); CHLORIDE LEVEL 98 MEQ/L (98-107); GLOMERULAR FILTRATION RATE > 60.0 (>51); GLUCOSE, FASTING 126 MG/DL (70-100); POTASSIUM SERUM 4.1 MEQ/L (3.5-5.1); SODIUM LEVEL 137 MEQ/L (136-145)
[2017-08-30] MEDS: predniSONE 20 MG TAB PO ×2 (08:56→21:16)
[2017-08-30] MEDS: VITAMIN D 1,000 INTERNATIONAL UNITS TABLET PO (08:56)
[2017-08-30] MEDS: OSELTAMIVIR PHOSPHATE 75 MG CAP (TAMIFLU) PO ×2 (08:56→21:16)
[2017-08-30] MEDS: ASPIRIN 81 MG ENTERIC TAB PO (08:56)
[2017-08-30] MEDS: OMEPRAZOLE 20 MG CAP PO ×2 (08:56→21:16)
[2017-08-30] MEDS: TORSEMIDE 20 MG TAB PO (08:56)
[2017-08-30] MEDS: FOLIC ACID 1 MG TAB PO (08:57)
[2017-08-30] MEDS: SPIRONOLACTONE 50 MG TAB PO (08:57)
[2017-08-30] MEDS: RIVAROXABAN 10 MG TAB (XARELTO) PO (08:57)
[2017-08-30] MEDS: ALPRAZolam 0.5 MG TAB PO ×2 (08:57→21:16)
[2017-08-30] MEDS: ESCITALOPRAM OXALATE 10 MG TAB (LEXAPRO) PO (12:20)
[2017-08-30] MEDS: SIMVASTATIN 20 MG TAB PO (21:16)
[2017-08-30] MEDS: traZODone 50 MG TAB PO (21:16)
[2017-08-30] MEDS: SENOKOT S TAB PO (21:16)
[2017-08-31] MEDS: PERCOCET 5MG/325MG TAB PO ×4 (00:41→18:56)
[2017-08-31] MEDS: LEVALBUTEROL 1.25 MG/0.5 ML CONCENTRATE NEB NEB ×6 (03:52→23:18)
[2017-08-31 06:26] LABS: C REACTIVE PROTEIN QUANTITATIV < 0.30 MG/DL (0.00-0.30)
[2017-08-31 07:36] LABS: BASO % 0.2 % (0.0-1.0); HEMATOCRIT 39.3 % (36.0-47.0); HEMOGLOBIN 12.7 g/dl (12.0-16.0); IMMATURE GRANULOCYTE % 1.8 % (0-3.0); LYMPH # 1.1 10^3/uL (1.5-4.5); LYMPH % 10.3 % (24.0-44.0); MEAN CORPUSCULAR HGB CONC 32.3 g/dl (32.0-36.5); MEAN CORPUSCULAR VOLUME 92.9 fl (80.0-96.0); MONO # 0.4 10^3/uL (0.0-0.8); MONO % 4.1 % (0.0-5.0); NEUTROPHILS % 83.6 % (36.0-66.0); PLATELET COUNT, AUTOMATED 311 10^3/uL (150-450); RED BLOOD COUNT 4.23 10^6/uL (4.00-5.40); WHITE BLOOD COUNT 10.7 10^3/uL (4.0-10.0)
[2017-08-31 07:46] LABS: ANION GAP 10 MEQ/L (8-16); BLOOD UREA NITROGEN 27 MG/DL (7-18); CARBON DIOXIDE LEVEL 30 MEQ/L (21-32); CHLORIDE LEVEL 98 MEQ/L (98-107); CREATININE FOR GFR 1.09 MG/DL (0.55-1.30); GLOMERULAR FILTRATION RATE 54.7 (>51); GLUCOSE, FASTING 129 MG/DL (70-100); MAGNESIUM LEVEL 2.3 MG/DL (1.8-2.4); POTASSIUM SERUM 4.2 MEQ/L (3.5-5.1); SODIUM LEVEL 138 MEQ/L (136-145)
[2017-08-31] MEDS: predniSONE 20 MG TAB PO (09:11)
[2017-08-31] MEDS: ALPRAZolam 0.5 MG TAB PO ×2 (09:11→20:00)
[2017-08-31] MEDS: SPIRONOLACTONE 50 MG TAB PO (09:11)
[2017-08-31] MEDS: FOLIC ACID 1 MG TAB PO (09:11)
[2017-08-31] MEDS: RIVAROXABAN 10 MG TAB (XARELTO) PO (09:11)
[2017-08-31] MEDS: ESCITALOPRAM OXALATE 10 MG TAB (LEXAPRO) PO (09:11)
[2017-08-31] MEDS: ASPIRIN 81 MG ENTERIC TAB PO (09:11)
[2017-08-31] MEDS: VITAMIN D 1,000 INTERNATIONAL UNITS TABLET PO (09:11)
[2017-08-31] MEDS: OMEPRAZOLE 20 MG CAP PO ×2 (09:12→20:00)
[2017-08-31] MEDS: TORSEMIDE 20 MG TAB PO (09:12)
[2017-08-31] MEDS: SIMVASTATIN 20 MG TAB PO (20:00)
[2017-08-31] MEDS: traZODone 50 MG TAB PO (22:02)
[2017-09-01] MEDS: PERCOCET 5MG/325MG TAB PO ×4 (01:32→20:30)
[2017-09-01] MEDS: LEVALBUTEROL 1.25 MG/0.5 ML CONCENTRATE NEB NEB ×4 (03:39→21:35)
[2017-09-01 06:16] LABS: BASO % 0.3 % (0.0-1.0); EOS % 0.3 % (0.0-3.0); HEMATOCRIT 38.9 % (36.0-47.0); HEMOGLOBIN 12.7 g/dl (12.0-16.0); LYMPH # 3.4 10^3/uL (1.5-4.5); LYMPH % 28.1 % (24.0-44.0); MEAN CORPUSCULAR HEMOGLOBIN 30.2 pg (27.0-33.0); MEAN CORPUSCULAR HGB CONC 32.6 g/dl (32.0-36.5); MEAN CORPUSCULAR VOLUME 92.6 fl (80.0-96.0); MONO # 0.8 10^3/uL (0.0-0.8); MONO % 6.5 % (0.0-5.0); NEUTROPHILS # 7.7 10^3/uL (1.8-7.7); NEUTROPHILS % 62.8 % (36.0-66.0); PLATELET COUNT, AUTOMATED 268 10^3/uL (150-450); WHITE BLOOD COUNT 12.2 10^3/uL (4.0-10.0)
[2017-09-01 06:39] LABS: ANION GAP 9 MEQ/L (8-16); BLOOD UREA NITROGEN 32 MG/DL (7-18); C REACTIVE PROTEIN QUANTITATIV < 0.30 MG/DL (0.00-0.30); CARBON DIOXIDE LEVEL 33 MEQ/L (21-32); CHLORIDE LEVEL 96 MEQ/L (98-107); CREATININE FOR GFR 1.02 MG/DL (0.55-1.30); GLUCOSE, FASTING 93 MG/DL (70-100); MAGNESIUM LEVEL 2.4 MG/DL (1.8-2.4); POTASSIUM SERUM 3.4 MEQ/L (3.5-5.1); SODIUM LEVEL 138 MEQ/L (136-145)
[2017-09-01] MEDS: RIVAROXABAN 10 MG TAB (XARELTO) PO (07:57)
[2017-09-01] MEDS: FOLIC ACID 1 MG TAB PO (07:58)
[2017-09-01] MEDS: VITAMIN D 1,000 INTERNATIONAL UNITS TABLET PO (07:58)
[2017-09-01] MEDS: ESCITALOPRAM OXALATE 10 MG TAB (LEXAPRO) PO (07:58)
[2017-09-01] MEDS: OMEPRAZOLE 20 MG CAP PO ×2 (07:58→20:29)
[2017-09-01] MEDS: ALPRAZolam 0.5 MG TAB PO ×3 (07:58→20:29)
[2017-09-01] MEDS: ASPIRIN 81 MG ENTERIC TAB PO (07:59)
[2017-09-01] MEDS: predniSONE 20 MG TAB PO ×2 (08:00→11:23)
[2017-09-01] MEDS: POTASSIUM CHLORIDE 10 MEQ SR TABLET PO (11:23)
[2017-09-01 15:41] LABS: AMORPHOUS SEDIMENT SMALL (NEGATIVE); APPEARANCE, URINE CLOUDY (CLEAR); BACTERIA, URINE AUTO 1+ (NEGATIVE); BILIRUBIN, URINE AUTO NEGATIVE (NEGATIVE); BLOOD, URINE BLOOD NEGATIVE (NEGATIVE); COLOR, URINE AMBER (YELLOW); GLUCOSE, URINE (UA) AUTO NEGATIVE (NEGATIVE); KETONE, URINE AUTO NEGATIVE (NEGATIVE); LEUKOCYTE ESTERASE, URINE AUTO 3+ (NEGATIVE); MUCUS, URINE SMALL (NEGATIVE); NITRITE, URINE AUTO NEGATIVE (NEGATIVE); PROTEIN, URINE AUTO 1+ mg/dL (NEGATIVE); RBC, URINE AUTO 5 /HPF (0-3); SPECIFIC GRAVITY URINE AUTO 1.031 (1.002-1.035); SQUAMOUS EPITHELIAL CELL UR AU 20 /HPF (0-6); TRANSITIONAL EPITHELIAL AUTO 2 /HPF; WBC, URINE AUTO 39 /HPF (0-3)
[2017-09-01] MEDS: SENOKOT S TAB PO (18:40)
[2017-09-01] MEDS: SIMVASTATIN 20 MG TAB PO (20:29)
[2017-09-01] MEDS: traZODone 50 MG TAB PO (23:19)
[2017-09-02] MEDS: LEVALBUTEROL 1.25 MG/0.5 ML CONCENTRATE NEB NEB ×4 (02:35→23:25)
[2017-09-02] MEDS: PERCOCET 5MG/325MG TAB PO ×4 (02:41→23:19)
[2017-09-02 06:02] LABS: BASO % 0.2 % (0.0-1.0); EOS # 0.1 10^3/uL (0.0-0.50); EOS % 0.5 % (0.0-3.0); HEMATOCRIT 39.8 % (36.0-47.0); HEMOGLOBIN 12.9 g/dl (12.0-16.0); IMMATURE GRANULOCYTE % 1.7 % (0-3.0); LYMPH # 3.5 10^3/uL (1.5-4.5); LYMPH % 27.9 % (24.0-44.0); MEAN CORPUSCULAR HEMOGLOBIN 29.8 pg (27.0-33.0); MEAN CORPUSCULAR HGB CONC 32.4 g/dl (32.0-36.5); MEAN CORPUSCULAR VOLUME 91.9 fl (80.0-96.0); MONO # 0.6 10^3/uL (0.0-0.8); MONO % 4.6 % (0.0-5.0); NEUTROPHILS # 8.2 10^3/uL (1.8-7.7); NEUTROPHILS % 65.1 % (36.0-66.0); PLATELET COUNT, AUTOMATED 264 10^3/uL (150-450); RED BLOOD COUNT 4.33 10^6/uL (4.00-5.40); RED CELL DISTRIBUTION WIDTH 13.6 % (11.5-14.5); WHITE BLOOD COUNT 12.5 10^3/uL (4.0-10.0)
[2017-09-02 06:35] LABS: ANION GAP 7 MEQ/L (8-16); BLOOD UREA NITROGEN 25 MG/DL (7-18); C REACTIVE PROTEIN QUANTITATIV 0.37 MG/DL (0.00-0.30); CARBON DIOXIDE LEVEL 31 MEQ/L (21-32); CHLORIDE LEVEL 98 MEQ/L (98-107); CREATININE FOR GFR 0.91 MG/DL (0.55-1.30); GLOMERULAR FILTRATION RATE > 60.0 (>51); GLUCOSE, FASTING 91 MG/DL (70-100); MAGNESIUM LEVEL 2.4 MG/DL (1.8-2.4); POTASSIUM SERUM 3.4 MEQ/L (3.5-5.1); SODIUM LEVEL 136 MEQ/L (136-145)
[2017-09-02] MEDS: ALPRAZolam 0.5 MG TAB PO ×3 (09:07→20:18)
[2017-09-02] MEDS: POTASSIUM CHLORIDE 10 MEQ SR TABLET PO (09:07)
[2017-09-02] MEDS: OMEPRAZOLE 20 MG CAP PO ×2 (09:07→20:18)
[2017-09-02] MEDS: predniSONE 20 MG TAB PO (09:08)
[2017-09-02] MEDS: FOLIC ACID 1 MG TAB PO (09:08)
[2017-09-02] MEDS: ASPIRIN 81 MG ENTERIC TAB PO (09:08)
[2017-09-02] MEDS: VITAMIN D 1,000 INTERNATIONAL UNITS TABLET PO (09:08)
[2017-09-02] MEDS: ESCITALOPRAM OXALATE 10 MG TAB (LEXAPRO) PO (09:08)
[2017-09-02] MEDS: RIVAROXABAN 10 MG TAB (XARELTO) PO (11:49)
[2017-09-02] MEDS: LACTULOSE 20 GM/30 ML SYRUP UD PO ×3 (11:49→23:40)
[2017-09-02] MEDS ORDERED: PILL CUTTER/CRUSHER XX (14:45)
[2017-09-02] MEDS: lamoTRIgine 100MG TAB PO (15:49)
[2017-09-02] MEDS: SIMVASTATIN 20 MG TAB PO (20:17)
[2017-09-02] MEDS: ONDANSETRON 4 MG ORAL DISINTEGRATING TAB (S0181) SL (20:18)
[2017-09-02] MEDS: traZODone 50 MG TAB PO (21:59)
[2017-09-03] MEDS: LACTULOSE 20 GM/30 ML SYRUP UD PO ×4 (06:00→23:25)
[2017-09-03] MEDS: PERCOCET 5MG/325MG TAB PO ×3 (06:06→18:45)
[2017-09-03 06:14] LABS: BASO % 0.2 % (0.0-1.0); EOS # 0.1 10^3/uL (0.0-0.50); EOS % 0.8 % (0.0-3.0); HEMATOCRIT 38.7 % (36.0-47.0); HEMOGLOBIN 12.5 g/dl (12.0-16.0); IMMATURE GRANULOCYTE % 1.3 % (0-3.0); LYMPH % 25.8 % (24.0-44.0); MEAN CORPUSCULAR HEMOGLOBIN 30.1 pg (27.0-33.0); MEAN CORPUSCULAR HGB CONC 32.3 g/dl (32.0-36.5); MEAN CORPUSCULAR VOLUME 93.3 fl (80.0-96.0); MONO # 0.6 10^3/uL (0.0-0.8); MONO % 5.6 % (0.0-5.0); NEUTROPHILS # 7.6 10^3/uL (1.8-7.7); NEUTROPHILS % 66.3 % (36.0-66.0); PLATELET COUNT, AUTOMATED 239 10^3/uL (150-450); RED BLOOD COUNT 4.15 10^6/uL (4.00-5.40); RED CELL DISTRIBUTION WIDTH 13.7 % (11.5-14.5); WHITE BLOOD COUNT 11.5 10^3/uL (4.0-10.0)
[2017-09-03 06:28] LABS: ANION GAP 8 MEQ/L (8-16); BLOOD UREA NITROGEN 20 MG/DL (7-18); CARBON DIOXIDE LEVEL 30 MEQ/L (21-32); CHLORIDE LEVEL 100 MEQ/L (98-107); CREATININE FOR GFR 1.07 MG/DL (0.55-1.30); GLOMERULAR FILTRATION RATE 55.9 (>51); GLUCOSE, FASTING 88 MG/DL (70-100); MAGNESIUM LEVEL 2.6 MG/DL (1.8-2.4); POTASSIUM SERUM 3.6 MEQ/L (3.5-5.1); SODIUM LEVEL 138 MEQ/L (136-145)
[2017-09-03] MEDS: LEVALBUTEROL 1.25 MG/0.5 ML CONCENTRATE NEB NEB ×3 (08:01→20:26)
[2017-09-03] MEDS: TORSEMIDE 20 MG TAB PO (08:45)
[2017-09-03] MEDS: FOLIC ACID 1 MG TAB PO (08:45)
[2017-09-03] MEDS: predniSONE 20 MG TAB PO (08:45)
[2017-09-03] MEDS: OMEPRAZOLE 20 MG CAP PO ×2 (08:45→21:31)
[2017-09-03] MEDS: lamoTRIgine 100MG TAB PO (08:45)
[2017-09-03] MEDS: VITAMIN D 1,000 INTERNATIONAL UNITS TABLET PO (08:45)
[2017-09-03] MEDS: ESCITALOPRAM OXALATE 10 MG TAB (LEXAPRO) PO (08:45)
[2017-09-03] MEDS: ASPIRIN 81 MG ENTERIC TAB PO (08:45)
[2017-09-03] MEDS: RIVAROXABAN 10 MG TAB (XARELTO) PO (08:46)
[2017-09-03] MEDS: SPIRONOLACTONE 50 MG TAB PO (08:46)
[2017-09-03] MEDS: ALPRAZolam 0.5 MG TAB PO ×3 (08:46→21:32)
[2017-09-03] MEDS: ONDANSETRON 4 MG ORAL DISINTEGRATING TAB (S0181) SL (11:24)
[2017-09-03] MEDS: SIMVASTATIN 20 MG TAB PO (21:31)
[2017-09-03] MEDS: traZODone 50 MG TAB PO (21:31)
[2017-09-04] MEDS: LEVALBUTEROL 1.25 MG/0.5 ML CONCENTRATE NEB NEB ×4 (01:27→20:00)
[2017-09-04] MEDS: PERCOCET 5MG/325MG TAB PO ×4 (04:39→23:32)
[2017-09-04] MEDS: LACTULOSE 20 GM/30 ML SYRUP UD PO ×4 (05:07→23:14)
[2017-09-04 06:22] LABS: BASO % 0.1 % (0.0-1.0); EOS # 0.1 10^3/uL (0.0-0.50); EOS % 0.8 % (0.0-3.0); HEMATOCRIT 36.6 % (36.0-47.0); HEMOGLOBIN 11.6 g/dl (12.0-16.0); IMMATURE GRANULOCYTE % 1.4 % (0-3.0); LYMPH % 27.8 % (24.0-44.0); MEAN CORPUSCULAR HEMOGLOBIN 29.5 pg (27.0-33.0); MEAN CORPUSCULAR HGB CONC 31.7 g/dl (32.0-36.5); MEAN CORPUSCULAR VOLUME 93.1 fl (80.0-96.0); MONO # 0.6 10^3/uL (0.0-0.8); MONO % 5.5 % (0.0-5.0); NEUTROPHILS % 64.4 % (36.0-66.0); PLATELET COUNT, AUTOMATED 222 10^3/uL (150-450); RED BLOOD COUNT 3.93 10^6/uL (4.00-5.40); RED CELL DISTRIBUTION WIDTH 13.5 % (11.5-14.5); WHITE BLOOD COUNT 10.8 10^3/uL (4.0-10.0)
[2017-09-04 06:37] LABS: ANION GAP 6 MEQ/L (8-16); BLOOD UREA NITROGEN 25 MG/DL (7-18); CALCIUM LEVEL 8.5 MG/DL (8.5-10.1); CARBON DIOXIDE LEVEL 30 MEQ/L (21-32); CHLORIDE LEVEL 102 MEQ/L (98-107); CREATININE FOR GFR 1.16 MG/DL (0.55-1.30); GLOMERULAR FILTRATION RATE 50.9 (>51); GLUCOSE, FASTING 99 MG/DL (70-100); MAGNESIUM LEVEL 2.6 MG/DL (1.8-2.4); POTASSIUM SERUM 3.5 MEQ/L (3.5-5.1); SODIUM LEVEL 138 MEQ/L (136-145)
[2017-09-04] MEDS: ALPRAZolam 0.5 MG TAB PO ×3 (09:29→20:45)
[2017-09-04] MEDS: ASPIRIN 81 MG ENTERIC TAB PO (09:29)
[2017-09-04] MEDS: predniSONE 20 MG TAB PO (09:29)
[2017-09-04] MEDS: SPIRONOLACTONE 50 MG TAB PO (09:29)
[2017-09-04] MEDS: TORSEMIDE 20 MG TAB PO (09:29)
[2017-09-04] MEDS: ESCITALOPRAM OXALATE 10 MG TAB (LEXAPRO) PO (09:30)
[2017-09-04] MEDS: FOLIC ACID 1 MG TAB PO (09:30)
[2017-09-04] MEDS: RIVAROXABAN 10 MG TAB (XARELTO) PO (09:30)
[2017-09-04] MEDS: VITAMIN D 1,000 INTERNATIONAL UNITS TABLET PO (09:30)
[2017-09-04] MEDS: OMEPRAZOLE 20 MG CAP PO ×2 (09:30→20:45)
[2017-09-04] MEDS: lamoTRIgine 100MG TAB PO (09:31)
[2017-09-04] MEDS: ONDANSETRON 4 MG ORAL DISINTEGRATING TAB (S0181) SL (09:31)
[2017-09-04] MEDS: traZODone 50 MG TAB PO (20:45)
[2017-09-04] MEDS: SIMVASTATIN 20 MG TAB PO (20:45)
[2017-09-04] MEDS: SENOKOT S TAB PO (20:51)
[2017-09-05] MEDS: LEVALBUTEROL 1.25 MG/0.5 ML CONCENTRATE NEB NEB ×5 (01:14→20:43)
[2017-09-05] MEDS: LACTULOSE 20 GM/30 ML SYRUP UD PO ×4 (05:16→23:58)
[2017-09-05 06:04] LABS: BASO % 0.1 % (0.0-1.0); EOS # 0.1 10^3/uL (0.0-0.50); EOS % 0.9 % (0.0-3.0); HEMATOCRIT 34.2 % (36.0-47.0); IMMATURE GRANULOCYTE % 1.1 % (0-3.0); LYMPH % 30.4 % (24.0-44.0); MEAN CORPUSCULAR HEMOGLOBIN 30.1 pg (27.0-33.0); MEAN CORPUSCULAR HGB CONC 32.2 g/dl (32.0-36.5); MEAN CORPUSCULAR VOLUME 93.7 fl (80.0-96.0); MONO # 0.7 10^3/uL (0.0-0.8); MONO % 6.9 % (0.0-5.0); NEUTROPHILS # 5.9 10^3/uL (1.8-7.7); NEUTROPHILS % 60.6 % (36.0-66.0); PLATELET COUNT, AUTOMATED 180 10^3/uL (150-450); RED BLOOD COUNT 3.65 10^6/uL (4.00-5.40); RED CELL DISTRIBUTION WIDTH 13.6 % (11.5-14.5); WHITE BLOOD COUNT 9.7 10^3/uL (4.0-10.0)
[2017-09-05] MEDS: PERCOCET 5MG/325MG TAB PO ×3 (06:11→18:29)
[2017-09-05 06:30] LABS: ANION GAP 6 MEQ/L (8-16); BLOOD UREA NITROGEN 27 MG/DL (7-18); CALCIUM LEVEL 8.4 MG/DL (8.5-10.1); CARBON DIOXIDE LEVEL 31 MEQ/L (21-32); CHLORIDE LEVEL 102 MEQ/L (98-107); CREATININE FOR GFR 1.07 MG/DL (0.55-1.30); GLOMERULAR FILTRATION RATE 55.9 (>51); GLUCOSE, FASTING 87 MG/DL (70-100); MAGNESIUM LEVEL 2.6 MG/DL (1.8-2.4); POTASSIUM SERUM 3.6 MEQ/L (3.5-5.1); SODIUM LEVEL 139 MEQ/L (136-145)
[2017-09-05] MEDS: SPIRONOLACTONE 50 MG TAB PO (09:47)
[2017-09-05] MEDS: ASPIRIN 81 MG ENTERIC TAB PO (09:47)
[2017-09-05] MEDS: TORSEMIDE 20 MG TAB PO (09:47)
[2017-09-05] MEDS: predniSONE 10 MG TAB PO (09:47)
[2017-09-05] MEDS: FOLIC ACID 1 MG TAB PO (09:48)
[2017-09-05] MEDS: OMEPRAZOLE 20 MG CAP PO ×2 (09:49→20:58)
[2017-09-05] MEDS: ESCITALOPRAM OXALATE 10 MG TAB (LEXAPRO) PO (09:49)
[2017-09-05] MEDS: lamoTRIgine 100MG TAB PO (09:49)
[2017-09-05] MEDS: ALPRAZolam 0.5 MG TAB PO ×3 (09:49→20:58)
[2017-09-05] MEDS: RIVAROXABAN 10 MG TAB (XARELTO) PO (09:49)
[2017-09-05] MEDS: VITAMIN D 1,000 INTERNATIONAL UNITS TABLET PO (09:49)
[2017-09-05] MEDS: ONDANSETRON 4 MG ORAL DISINTEGRATING TAB (S0181) SL (09:51)
[2017-09-05] MEDS: MOM 30ML SUSPENSION UDC PO (15:45)
[2017-09-05] MEDS: traZODone 50 MG TAB PO (20:58)
[2017-09-05] MEDS: SIMVASTATIN 20 MG TAB PO (20:58)
[2017-09-05] MEDS: NYSTATIN 100,000 UNITS/GM TOPICAL PWD 15 GM TOP (20:59)
[2017-09-06] MEDS: LEVALBUTEROL 1.25 MG/0.5 ML CONCENTRATE NEB NEB ×3 (01:37→15:05)
[2017-09-06] MEDS: PERCOCET 5MG/325MG TAB PO ×2 (04:13→10:34)
[2017-09-06] MEDS: LACTULOSE 20 GM/30 ML SYRUP UD PO ×2 (05:36→11:06)
[2017-09-06 06:13] LABS: BASO % 0.1 % (0.0-1.0); EOS # 0.1 10^3/uL (0.0-0.50); EOS % 1.1 % (0.0-3.0); HEMATOCRIT 33.9 % (36.0-47.0); HEMOGLOBIN 10.6 g/dl (12.0-16.0); IMMATURE GRANULOCYTE % 0.9 % (0-3.0); LYMPH # 2.5 10^3/uL (1.5-4.5); LYMPH % 26.9 % (24.0-44.0); MEAN CORPUSCULAR HEMOGLOBIN 29.4 pg (27.0-33.0); MEAN CORPUSCULAR HGB CONC 31.3 g/dl (32.0-36.5); MEAN CORPUSCULAR VOLUME 94.2 fl (80.0-96.0); MONO # 0.6 10^3/uL (0.0-0.8); MONO % 6.8 % (0.0-5.0); NEUTROPHILS % 64.2 % (36.0-66.0); PLATELET COUNT, AUTOMATED 189 10^3/uL (150-450); RED CELL DISTRIBUTION WIDTH 13.9 % (11.5-14.5); WHITE BLOOD COUNT 9.4 10^3/uL (4.0-10.0)
[2017-09-06 06:25] LABS: MAGNESIUM LEVEL 2.5 MG/DL (1.8-2.4)
[2017-09-06] MEDS: SPIRONOLACTONE 50 MG TAB PO (08:39)
[2017-09-06] MEDS: predniSONE 10 MG TAB PO (08:39)
[2017-09-06] MEDS: TORSEMIDE 20 MG TAB PO (08:39)
[2017-09-06] MEDS: ASPIRIN 81 MG ENTERIC TAB PO (08:39)
[2017-09-06] MEDS: VITAMIN D 1,000 INTERNATIONAL UNITS TABLET PO (08:39)
[2017-09-06] MEDS: RIVAROXABAN 10 MG TAB (XARELTO) PO (08:39)
[2017-09-06] MEDS: ALPRAZolam 0.5 MG TAB PO ×2 (08:39→15:00)
[2017-09-06] MEDS: ESCITALOPRAM OXALATE 10 MG TAB (LEXAPRO) PO (08:39)
[2017-09-06] MEDS: lamoTRIgine 100MG TAB PO (08:39)
[2017-09-06] MEDS: FOLIC ACID 1 MG TAB PO (08:39)
[2017-09-06] MEDS: OMEPRAZOLE 20 MG CAP PO (08:40)
[2017-09-06] MEDS: NYSTATIN 100,000 UNITS/GM TOPICAL PWD 15 GM TOP (08:40)
== END 2017-09-06 16:28 | disposition home health service (06) | DRG 113 ==
LOC: M ED 13:00 → M ED INP 14:39 → M MSPAV 16:18
DX: J10.1 Influenza due to other identified influenza virus with other respiratory manifestations (principal); J96.11 Chronic respiratory failure with hypoxia; I50.32 Chronic diastolic (congestive) heart failure; I27.20 Pulmonary hypertension, unspecified; Z99.81 Dependence on supplemental oxygen; J44.1 Chronic obstructive pulmonary disease with (acute) exacerbation; K21.9 Gastro-esophageal reflux disease without esophagitis; F41.9 Anxiety disorder, unspecified; F32.9 Major depressive disorder, single episode, unspecified; Z79.82 Long term (current) use of aspirin; Z88.5 Allergy status to narcotic agent; Z87.891 Personal history of nicotine dependence; Z96.641 Presence of right artificial hip joint; Z86.718 Personal history of other venous thrombosis and embolism; Z88.1 Allergy status to other antibiotic agents; Z79.01 Long term (current) use of anticoagulants; Z88.0 Allergy status to penicillin; Z88.2 Allergy status to sulfonamides; Z88.8 Allergy status to other drugs, medicaments and biological substances

== ENCOUNTER 2017-10-02 13:19 | Inpatient (IN) | payer OTHER ==
[2017-10-02] MEDS: TORSEMIDE 20 MG TAB PO (09:00)
[2017-10-02] MEDS ORDERED: HYDROmorphone HCL 1 MG/ML SYRINGE (J1170) IV (14:00)
[2017-10-02 14:01] LABS: BASO # 0.1 10^3/uL (0.0-0.2); BASO % 0.4 % (0.0-1.0); EOS # 0.2 10^3/uL (0.0-0.50); EOS % 1.1 % (0.0-3.0); HEMATOCRIT 41.4 % (36.0-47.0); HEMOGLOBIN 13.1 g/dl (12.0-15.5); IMMATURE GRANULOCYTE % 2.7 % (0-3.0); LYMPH # 2.1 10^3/uL (1.5-4.5); LYMPH % 14.1 % (24.0-44.0); MEAN CORPUSCULAR HEMOGLOBIN 28.4 pg (27.0-33.0); MEAN CORPUSCULAR HGB CONC 31.6 g/dl (32.0-36.5); MEAN CORPUSCULAR VOLUME 89.8 fl (80.0-96.0); MONO # 1.7 10^3/uL (0.0-0.8); MONO % 11.3 % (0.0-5.0); NEUTROPHILS # 10.3 10^3/uL (1.8-7.7); NEUTROPHILS % 70.4 % (36.0-66.0); PLATELET COUNT, AUTOMATED 310 10^3/uL (150-450); RED BLOOD COUNT 4.61 10^6/uL (4.00-5.40); RED CELL DISTRIBUTION WIDTH 14.8 % (11.5-14.5); WHITE BLOOD COUNT 14.7 10^3/uL (4.0-10.0)
[2017-10-02] MEDS: NS 500 ML IV (14:01)
[2017-10-02] MEDS: ONDANSETRON 4MG/2ML VIAL (J2405) IV (14:02)
[2017-10-02 14:23] LABS: LACTIC ACID SEPSIS PROTOCOL 1.4 MMOL/L (0.4-2.0)
[2017-10-02 14:24] LABS: ALBUMIN 3.1 GM/DL (3.2-5.2); ALBUMIN/GLOBULIN RATIO 0.66 (1.00-1.93); ALKALINE PHOSPHATASE 99 U/L (45-117); ALT/SGPT 35 U/L (12-78); ANION GAP 8 MEQ/L (8-16); AST/SGOT 26 U/L (7-37); BILIRUBIN,DIRECT < 0.1 MG/DL (0.0-0.2); BILIRUBIN,TOTAL 0.4 MG/DL (0.2-1.0); BLOOD UREA NITROGEN 20 MG/DL (7-18); CARBON DIOXIDE LEVEL 26 MEQ/L (21-32); CHLORIDE LEVEL 101 MEQ/L (98-107); CPK CREATINE PHOSPHOKINASE 31 U/L (26-192); CREATININE FOR GFR 1.29 MG/DL (0.55-1.30); GLUCOSE, FASTING 98 MG/DL (70-100); LIPASE 128 U/L (73-393); POTASSIUM SERUM 4.2 MEQ/L (3.5-5.1); SODIUM LEVEL 135 MEQ/L (136-145); TOTAL PROTEIN 7.8 GM/DL (6.4-8.2); TROPONIN I < 0.02 NG/ML (< 0.10)
[2017-10-02 14:25] LABS: CK-MB VALUE MASS < 1.0 NG/ML (<3.6); MB/CK RELATIVE INDEX 3.22 (< OR =4)
[2017-10-02] MEDS: IPRATROPIUM 0.5MG/ALBUTEROL 2.5MG INH SOL UD 3ML (DUONEB)(J7620) NEB (17:23)
[2017-10-02] MEDS ORDERED: ONDANSETRON 4 MG TAB (S0181) PO (17:45)
[2017-10-02] MEDS ORDERED: HEPARIN SOD (PORCINE) 5000 UNITS/ML VIAL SC (17:45)
[2017-10-02] MEDS ORDERED: NITROGLYCERIN 0.4 MG SUBL TABLET SL (17:45)
[2017-10-02] MEDS ORDERED: ALBUTEROL 90 MCG/ACT 8GM HFA INHALER INH (17:45)
[2017-10-02] MEDS ORDERED: ACETAMINOPHEN TAB 650MG DOSE (2X325MG) PO (18:00)
[2017-10-02] MEDS: ASPIRIN 81 MG ENTERIC TAB PO (18:12)
[2017-10-02] MEDS: FOLIC ACID 1 MG TAB PO (18:12)
[2017-10-02] MEDS: FAMOTIDINE 20 MG TAB PO (18:13)
[2017-10-02] MEDS: VANCOMYCIN ORAL SOL 250MG/5ML ORAL SYRINGE PO (18:13)
[2017-10-02] MEDS: PERCOCET 5MG/325MG TAB PO ×2 (18:18→22:12)
[2017-10-02] MEDS: GASTROGRAFIN SOLUTION 30ML PO ×2 (18:20→18:30)
[2017-10-02] MEDS: lamoTRIgine 100MG TAB PO (18:27)
[2017-10-02] MEDS: metroNIDAZOLE 500 MG in APPROPRIATE DILUENT 1 EA IV ×2 (18:47→23:00)
[2017-10-02] MEDS: NS 1,000 ML IV (20:06)
[2017-10-02] MEDS: LACTOBACILLUS ACIDOPHILUS CAP (BACID) PO (20:53)
[2017-10-02] MEDS: SPIRONOLACTONE 50 MG TAB PO (20:53)
[2017-10-02] MEDS: SIMVASTATIN 20 MG TAB PO (20:53)
[2017-10-02] MEDS: OMEPRAZOLE 20 MG CAP PO (20:53)
[2017-10-02] MEDS: traZODone 50 MG TAB PO (20:53)
[2017-10-02] MEDS: ALPRAZolam 0.5 MG TAB PO (20:53)
[2017-10-02] MEDS: VITAMIN D 1,000 INTERNATIONAL UNITS TABLET PO (21:30)
[2017-10-02] MEDS: READI-CAT 2 PO ×2 (21:55→22:39)
[2017-10-03] MEDS: PERCOCET 5MG/325MG TAB PO ×5 (03:54→22:36)
[2017-10-03] MEDS: metroNIDAZOLE 500 MG in APPROPRIATE DILUENT 1 EA IV (05:14)
[2017-10-03] MEDS: IPRATROPIUM 0.5MG/ALBUTEROL 2.5MG INH SOL UD 3ML (DUONEB)(J7620) INH ×3 (05:46→17:58)
[2017-10-03 07:34] LABS: ANION GAP 6 MEQ/L (8-16); BLOOD UREA NITROGEN 15 MG/DL (7-18); CALCIUM LEVEL 8.1 MG/DL (8.5-10.1); CARBON DIOXIDE LEVEL 23 MEQ/L (21-32); CHLORIDE LEVEL 106 MEQ/L (98-107); CREATININE FOR GFR 0.88 MG/DL (0.55-1.30); GLOMERULAR FILTRATION RATE > 60.0 (>51); GLUCOSE, FASTING 100 MG/DL (70-100); POTASSIUM SERUM 4.3 MEQ/L (3.5-5.1); SODIUM LEVEL 135 MEQ/L (136-145)
[2017-10-03 07:52] LABS: BASO % 0.2 % (0.0-1.0); EOS # 0.2 10^3/uL (0.0-0.50); EOS % 2.2 % (0.0-3.0); IMMATURE GRANULOCYTE % 2.2 % (0-3.0); LYMPH # 1.5 10^3/uL (1.5-4.5); LYMPH % 14.1 % (24.0-44.0); MEAN CORPUSCULAR HEMOGLOBIN 28.5 pg (27.0-33.0); MEAN CORPUSCULAR HGB CONC 31.1 g/dl (32.0-36.5); MEAN CORPUSCULAR VOLUME 91.6 fl (80.0-96.0); MONO # 1.7 10^3/uL (0.0-0.8); MONO % 15.9 % (0.0-5.0); NEUTROPHILS % 65.4 % (36.0-66.0); PLATELET COUNT, AUTOMATED 249 10^3/uL (150-450); RED BLOOD COUNT 3.82 10^6/uL (4.00-5.40); RED CELL DISTRIBUTION WIDTH 14.7 % (11.5-14.5); WHITE BLOOD COUNT 10.6 10^3/uL (4.0-10.0)
[2017-10-03 08:00] LABS: HEMOGLOBIN 10.9 g/dl (12.0-15.5)
[2017-10-03] MEDS ORDERED: ENTER DRUG NAME HERE (PATIENT'S OWN MED) INH (09:00)
[2017-10-03] MEDS: ASPIRIN 81 MG ENTERIC TAB PO (09:20)
[2017-10-03] MEDS: LACTOBACILLUS ACIDOPHILUS CAP (BACID) PO (09:20)
[2017-10-03] MEDS: SPIRONOLACTONE 50 MG TAB PO ×3 (09:20→21:43)
[2017-10-03] MEDS: ALPRAZolam 0.5 MG TAB PO ×2 (09:20→21:43)
[2017-10-03] MEDS: RIVAROXABAN 10 MG TAB (XARELTO) PO (09:21)
[2017-10-03] MEDS: FAMOTIDINE 20 MG TAB PO (09:21)
[2017-10-03] MEDS: VITAMIN D 1,000 INTERNATIONAL UNITS TABLET PO (09:21)
[2017-10-03] MEDS: OMEPRAZOLE 20 MG CAP PO ×2 (09:21→21:43)
[2017-10-03] MEDS: FOLIC ACID 1 MG TAB PO (09:21)
[2017-10-03] MEDS: lamoTRIgine 100MG TAB PO (09:23)
[2017-10-03] MEDS: TORSEMIDE 20 MG TAB PO (11:53)
[2017-10-03] MEDS: SIMVASTATIN 20 MG TAB PO (21:43)
[2017-10-03] MEDS: traZODone 50 MG TAB PO (21:44)
[2017-10-04] MEDS: IPRATROPIUM 0.5MG/ALBUTEROL 2.5MG INH SOL UD 3ML (DUONEB)(J7620) INH ×2 (00:21→04:41)
[2017-10-04] MEDS: PERCOCET 5MG/325MG TAB PO ×2 (05:02→10:21)
[2017-10-04 06:47] LABS: BASO % 0.3 % (0.0-1.0); EOS # 0.3 10^3/uL (0.0-0.50); EOS % 2.8 % (0.0-3.0); HEMATOCRIT 36.7 % (36.0-47.0); HEMOGLOBIN 11.6 g/dl (12.0-15.5); IMMATURE GRANULOCYTE % 1.3 % (0-3.0); LYMPH # 1.3 10^3/uL (1.5-4.5); LYMPH % 12.3 % (24.0-44.0); MEAN CORPUSCULAR HEMOGLOBIN 28.2 pg (27.0-33.0); MEAN CORPUSCULAR HGB CONC 31.6 g/dl (32.0-36.5); MEAN CORPUSCULAR VOLUME 89.3 fl (80.0-96.0); MONO # 1.3 10^3/uL (0.0-0.8); MONO % 12.6 % (0.0-5.0); NEUTROPHILS # 7.2 10^3/uL (1.8-7.7); NEUTROPHILS % 70.7 % (36.0-66.0); PLATELET COUNT, AUTOMATED 230 10^3/uL (150-450); RED BLOOD COUNT 4.11 10^6/uL (4.00-5.40); RED CELL DISTRIBUTION WIDTH 14.6 % (11.5-14.5); WHITE BLOOD COUNT 10.1 10^3/uL (4.0-10.0)
[2017-10-04 07:11] LABS: ANION GAP 7 MEQ/L (8-16); BLOOD UREA NITROGEN 10 MG/DL (7-18); CALCIUM LEVEL 8.8 MG/DL (8.5-10.1); CARBON DIOXIDE LEVEL 26 MEQ/L (21-32); CHLORIDE LEVEL 100 MEQ/L (98-107); CREATININE FOR GFR 1.17 MG/DL (0.55-1.30); GLOMERULAR FILTRATION RATE 50.4 (>51); GLUCOSE, FASTING 112 MG/DL (70-100); POTASSIUM SERUM 3.9 MEQ/L (3.5-5.1); SODIUM LEVEL 133 MEQ/L (136-145)
[2017-10-04] MEDS: VITAMIN D 1,000 INTERNATIONAL UNITS TABLET PO (08:16)
[2017-10-04] MEDS: OMEPRAZOLE 20 MG CAP PO (08:16)
[2017-10-04] MEDS: lamoTRIgine 100MG TAB PO (08:17)
[2017-10-04] MEDS: SPIRONOLACTONE 50 MG TAB PO (08:17)
[2017-10-04] MEDS: RIVAROXABAN 10 MG TAB (XARELTO) PO (08:17)
[2017-10-04] MEDS: FAMOTIDINE 20 MG TAB PO (08:18)
[2017-10-04] MEDS: predniSONE 20 MG TAB PO (08:18)
[2017-10-04] MEDS: ASPIRIN 81 MG ENTERIC TAB PO (08:18)
[2017-10-04] MEDS: ALPRAZolam 0.5 MG TAB PO (08:18)
[2017-10-04] MEDS: FOLIC ACID 1 MG TAB PO (08:22)
[2017-10-04] MEDS: TORSEMIDE 20 MG TAB PO (08:22)
[2017-10-04] MEDS: LEVALBUTEROL 1.25 MG/0.5 ML CONCENTRATE NEB NEB (09:13)
== END 2017-10-04 11:55 | disposition home health service (06) | DRG 249 ==
LOC: M ED 13:19 → M ED INP 18:39 → M MSPAV 19:58
DX: R19.7 Diarrhea, unspecified (principal); I11.0 Hypertensive heart disease with heart failure; I27.20 Pulmonary hypertension, unspecified; I50.30 Unspecified diastolic (congestive) heart failure; Z99.81 Dependence on supplemental oxygen; J44.9 Chronic obstructive pulmonary disease, unspecified; E78.00 Pure hypercholesterolemia, unspecified; F32.9 Major depressive disorder, single episode, unspecified; F41.9 Anxiety disorder, unspecified; K21.9 Gastro-esophageal reflux disease without esophagitis; M50.30 Other cervical disc degeneration, unspecified cervical region; R53.1 Weakness; I25.10 Atherosclerotic heart disease of native coronary artery without angina pectoris; R10.30 Lower abdominal pain, unspecified; R63.4 Abnormal weight loss; Z79.82 Long term (current) use of aspirin; Z79.899 Other long term (current) drug therapy; Z86.711 Personal history of pulmonary embolism; Z86.718 Personal history of other venous thrombosis and embolism; Z88.0 Allergy status to penicillin; Z88.1 Allergy status to other antibiotic agents; Z88.2 Allergy status to sulfonamides; Z88.5 Allergy status to narcotic agent; Z88.8 Allergy status to other drugs, medicaments and biological substances; Z96.641 Presence of right artificial hip joint

== ENCOUNTER 2017-10-07 04:41 | Inpatient (IN) | payer OTHER ==
[2017-10-07 05:23] LABS: BASO % 0.2 % (0.0-1.0); EOS # 0.1 10^3/uL (0.0-0.50); EOS % 0.6 % (0.0-3.0); HEMATOCRIT 38.3 % (36.0-47.0); HEMOGLOBIN 11.8 g/dl (12.0-15.5); IMMATURE GRANULOCYTE % 0.7 % (0-3.0); LYMPH % 4.9 % (24.0-44.0); MEAN CORPUSCULAR HEMOGLOBIN 28.1 pg (27.0-33.0); MEAN CORPUSCULAR HGB CONC 30.8 g/dl (32.0-36.5); MEAN CORPUSCULAR VOLUME 91.2 fl (80.0-96.0); MONO # 0.5 10^3/uL (0.0-0.8); MONO % 2.7 % (0.0-5.0); NEUTROPHILS # 18.2 10^3/uL (1.8-7.7); NEUTROPHILS % 90.9 % (36.0-66.0); PLATELET COUNT, AUTOMATED 239 10^3/uL (150-450); RED CELL DISTRIBUTION WIDTH 14.8 % (11.5-14.5); WHITE BLOOD COUNT 19.9 10^3/uL (4.0-10.0)
[2017-10-07] MEDS: ACETAMINOPHEN TAB 650MG DOSE (2X325MG) PO (05:45)
[2017-10-07] MEDS ORDERED: IPRATROPIUM 0.5MG/ALBUTEROL 2.5MG INH SOL UD 3ML (DUONEB)(J7620) NEB (05:45)
[2017-10-07] MEDS ORDERED: HEPARIN SOD (PORCINE) 5000 UNITS/ML VIAL SC (06:00)
[2017-10-07 06:02] LABS: LACTIC ACID SEPSIS PROTOCOL 2.4 MMOL/L (0.4-2.0)
[2017-10-07] MEDS: IPRATROPIUM 0.5MG/ALBUTEROL 2.5MG INH SOL UD 3ML (DUONEB)(J7620) NEB ×4 (06:02→08:00)
[2017-10-07 06:03] LABS: ABG BASE EXCESS 3.5 (-2.0-2.0); ABG HCO3 26.5 MEQ/L (22.0-26.0); ABG O2 SATURATION 97.4 % (95.0-99.0); ABG PARTIAL PRESSURE CO2 34.6 mmHg (35.0-45.0); ABG PARTIAL PRESSURE O2 84.8 mmHg (75.0-100.0); ABG STANDARD HCO3 27.6 MEQ/L (22.0-26.0); ABG TOTAL CO2 27.6 MEQ/L (22.0-29.0); ABG pH (ARTERIAL) 7.502 UNITS (7.350-7.450)
[2017-10-07 06:12] LABS: ANION GAP 7 MEQ/L (8-16); BLOOD UREA NITROGEN 20 MG/DL (7-18); CALCIUM LEVEL 8.9 MG/DL (8.5-10.1); CARBON DIOXIDE LEVEL 28 MEQ/L (21-32); CHLORIDE LEVEL 104 MEQ/L (98-107); CPK CREATINE PHOSPHOKINASE 78 U/L (26-192); CREATININE FOR GFR 1.11 MG/DL (0.55-1.30); GLOMERULAR FILTRATION RATE 53.6 (>51); GLUCOSE, FASTING 100 MG/DL (70-100); POTASSIUM SERUM 4.9 MEQ/L (3.5-5.1); SODIUM LEVEL 139 MEQ/L (136-145); TROPONIN I < 0.02 NG/ML (< 0.10)
[2017-10-07 06:14] LABS: CK-MB VALUE MASS < 1.0 NG/ML (<3.6); MB/CK RELATIVE INDEX 1.28 (< OR =4)
[2017-10-07 06:18] LABS: NT-PRO BNP 262 PG/ML (<125); THYROID STIMULATING HORMONE 0.622 uIU/ML (0.358-3.740)
[2017-10-07] MEDS: LORazepam 2 MG/ML VIAL (J2060) IV (07:25)
[2017-10-07] MEDS: DOXYCYCLINE HYCLATE 100 MG in D5W MINI-BAG PLUS 100 ML IV ×2 (07:37→20:30)
[2017-10-07] MEDS ORDERED: ACETAMINOPHEN TAB 650MG DOSE (2X325MG) PO (07:45)
[2017-10-07] MEDS ORDERED: ONDANSETRON 4MG/2ML VIAL (J2405) IV (07:45)
[2017-10-07 08:39] LABS: ERYTHROCYTE SEDIMENTATION RATE 58 mm/hr (0-30)
[2017-10-07] MEDS ORDERED: LEVALBUTEROL 1.25 MG/0.5 ML CONCENTRATE NEB INH (10:15)
[2017-10-07] MEDS ORDERED: ALBUTEROL 90 MCG/ACT 8GM HFA INHALER INH (10:15)
[2017-10-07] MEDS ORDERED: methylPREDNISolone INJ 125 MG/2 ML VIAL (J2930) IV (10:15)
[2017-10-07] MEDS: ASPIRIN 81 MG ENTERIC TAB PO (10:42)
[2017-10-07] MEDS: VITAMIN D 1,000 INTERNATIONAL UNITS TABLET PO (10:42)
[2017-10-07] MEDS: OMEPRAZOLE 20 MG CAP PO ×2 (10:43→20:28)
[2017-10-07] MEDS: FAMOTIDINE 20 MG TAB PO (10:43)
[2017-10-07] MEDS: FOLIC ACID 1 MG TAB PO (10:43)
[2017-10-07] MEDS: SPIRONOLACTONE 50 MG TAB PO (10:43)
[2017-10-07] MEDS: TORSEMIDE 20 MG TAB PO (10:43)
[2017-10-07] MEDS: PERCOCET 5MG/325MG TAB PO ×4 (10:44→23:37)
[2017-10-07] MEDS: NS 1,000 ML IV (10:46)
[2017-10-07] MEDS: LEVALBUTEROL 1.25 MG/0.5 ML CONCENTRATE NEB INH ×4 (11:07→23:32)
[2017-10-07] MEDS ORDERED: NS 1,000 ML IV (11:15)
[2017-10-07] MEDS: DEXTROMETHORPHAN 60MG/10ML SUSP 90ML BTL(DELSYM) PO ×2 (12:45→20:29)
[2017-10-07] MEDS: predniSONE 20 MG TAB PO ×3 (12:46→23:36)
[2017-10-07 13:37] LABS: CK-MB VALUE MASS < 1.0 NG/ML (<3.6); CPK CREATINE PHOSPHOKINASE 17 U/L (26-192); MB/CK RELATIVE INDEX 5.88 (< OR =4); TROPONIN I < 0.02 NG/ML (< 0.10)
[2017-10-07] MEDS: RIVAROXABAN 10 MG TAB (XARELTO) PO (18:03)
[2017-10-07 18:27] LABS: CPK CREATINE PHOSPHOKINASE 17 U/L (26-192); TROPONIN I < 0.02 NG/ML (< 0.10)
[2017-10-07 18:28] LABS: CK-MB VALUE MASS < 1.0 NG/ML (<3.6); MB/CK RELATIVE INDEX 5.88 (< OR =4)
[2017-10-07] MEDS: ALPRAZolam 0.5 MG TAB PO (20:29)
[2017-10-07] MEDS: SIMVASTATIN 20 MG TAB PO (20:29)
[2017-10-07] MEDS: traZODone 50 MG TAB PO (20:31)
[2017-10-08 01:22] LABS: CK-MB VALUE MASS < 1.0 NG/ML (<3.6); CPK CREATINE PHOSPHOKINASE 14 U/L (26-192); MB/CK RELATIVE INDEX 7.14 (< OR =4); TROPONIN I < 0.02 NG/ML (< 0.10)
[2017-10-08] MEDS: LEVALBUTEROL 1.25 MG/0.5 ML CONCENTRATE NEB INH ×6 (02:08→23:40)
[2017-10-08] MEDS: predniSONE 20 MG TAB PO ×3 (05:39→18:03)
[2017-10-08] MEDS: PERCOCET 5MG/325MG TAB PO ×4 (05:40→20:39)
[2017-10-08 06:04] LABS: AMORPHOUS SEDIMENT SMALL (NEGATIVE); APPEARANCE, URINE HAZY (CLEAR); BACTERIA, URINE AUTO 2+ (NEGATIVE); BILIRUBIN, URINE AUTO NEGATIVE (NEGATIVE); BLOOD, URINE BLOOD NEGATIVE (NEGATIVE); COLOR, URINE YELLOW (YELLOW); GLUCOSE, URINE (UA) AUTO NEGATIVE (NEGATIVE); KETONE, URINE AUTO NEGATIVE (NEGATIVE); LEUKOCYTE ESTERASE, URINE AUTO 1+ (NEGATIVE); MUCUS, URINE SMALL (NEGATIVE); NITRITE, URINE AUTO POSITIVE (NEGATIVE); PROTEIN, URINE AUTO NEGATIVE (NEGATIVE); RBC, URINE AUTO 3 /HPF (0-3); SPECIFIC GRAVITY URINE AUTO 1.027 (1.002-1.035); SQUAMOUS EPITHELIAL CELL UR AU 4 /HPF (0-6); UROBILINOGEN, URINE AUTO 0.2 mg/dL (0.0-2.0); WBC, URINE AUTO 3 /HPF (0-3)
[2017-10-08 06:40] LABS: BASO % 0.1 % (0.0-1.0); HEMATOCRIT 31.6 % (36.0-47.0); HEMOGLOBIN 9.9 g/dl (12.0-15.5); IMMATURE GRANULOCYTE % 0.6 % (0-3.0); LYMPH # 0.5 10^3/uL (1.5-4.5); LYMPH % 4.2 % (24.0-44.0); MEAN CORPUSCULAR HEMOGLOBIN 28.1 pg (27.0-33.0); MEAN CORPUSCULAR HGB CONC 31.3 g/dl (32.0-36.5); MEAN CORPUSCULAR VOLUME 89.8 fl (80.0-96.0); MONO # 0.1 10^3/uL (0.0-0.8); MONO % 0.8 % (0.0-5.0); NEUTROPHILS # 10.4 10^3/uL (1.8-7.7); NEUTROPHILS % 94.3 % (36.0-66.0); PLATELET COUNT, AUTOMATED 211 10^3/uL (150-450); RED BLOOD COUNT 3.52 10^6/uL (4.00-5.40); RED CELL DISTRIBUTION WIDTH 14.6 % (11.5-14.5); WHITE BLOOD COUNT 11.1 10^3/uL (4.0-10.0)
[2017-10-08 07:12] LABS: ANION GAP 8 MEQ/L (8-16); BLOOD UREA NITROGEN 20 MG/DL (7-18); CALCIUM LEVEL 8.9 MG/DL (8.5-10.1); CARBON DIOXIDE LEVEL 28 MEQ/L (21-32); CHLORIDE LEVEL 104 MEQ/L (98-107); CREATININE FOR GFR 1.01 MG/DL (0.55-1.30); GLOMERULAR FILTRATION RATE 59.7 (>51); GLUCOSE, FASTING 151 MG/DL (70-100); POTASSIUM SERUM 3.8 MEQ/L (3.5-5.1); SODIUM LEVEL 140 MEQ/L (136-145)
[2017-10-08 08:42] LABS: LACTIC ACID SEPSIS PROTOCOL 1.8 MMOL/L (0.4-2.0)
[2017-10-08] MEDS: DOXYCYCLINE HYCLATE 100 MG in D5W MINI-BAG PLUS 100 ML IV ×2 (09:06→22:21)
[2017-10-08] MEDS: ALPRAZolam 0.5 MG TAB PO ×2 (09:07→20:38)
[2017-10-08] MEDS: VITAMIN D 1,000 INTERNATIONAL UNITS TABLET PO (09:07)
[2017-10-08] MEDS: FAMOTIDINE 20 MG TAB PO (09:07)
[2017-10-08] MEDS: DEXTROMETHORPHAN 60MG/10ML SUSP 90ML BTL(DELSYM) PO ×2 (09:07→22:21)
[2017-10-08] MEDS: ASPIRIN 81 MG ENTERIC TAB PO (09:08)
[2017-10-08] MEDS: FOLIC ACID 1 MG TAB PO (09:08)
[2017-10-08] MEDS: OMEPRAZOLE 20 MG CAP PO ×2 (09:08→20:38)
[2017-10-08] MEDS: VANCOMYCIN HCL 1,000 MG in D5W 250 ML IV (18:02)
[2017-10-08] MEDS: RIVAROXABAN 10 MG TAB (XARELTO) PO (18:02)
[2017-10-08] MEDS: SIMVASTATIN 20 MG TAB PO (20:38)
[2017-10-08] MEDS: traZODone 50 MG TAB PO (20:38)
[2017-10-09] MEDS: predniSONE 20 MG TAB PO ×2 (01:03→06:10)
[2017-10-09] MEDS: PERCOCET 5MG/325MG TAB PO ×3 (01:04→10:28)
[2017-10-09] MEDS: LEVALBUTEROL 1.25 MG/0.5 ML CONCENTRATE NEB INH ×3 (02:43→11:42)
[2017-10-09 06:54] LABS: BASO % 0.1 % (0.0-1.0); HEMATOCRIT 33.4 % (36.0-47.0); HEMOGLOBIN 10.3 g/dl (12.0-15.5); IMMATURE GRANULOCYTE % 0.6 % (0-3.0); LYMPH # 0.4 10^3/uL (1.5-4.5); LYMPH % 3.4 % (24.0-44.0); MEAN CORPUSCULAR HEMOGLOBIN 27.7 pg (27.0-33.0); MEAN CORPUSCULAR HGB CONC 30.8 g/dl (32.0-36.5); MEAN CORPUSCULAR VOLUME 89.8 fl (80.0-96.0); MONO # 0.2 10^3/uL (0.0-0.8); MONO % 1.6 % (0.0-5.0); NEUTROPHILS # 11.9 10^3/uL (1.8-7.7); NEUTROPHILS % 94.3 % (36.0-66.0); PLATELET COUNT, AUTOMATED 241 10^3/uL (150-450); RED BLOOD COUNT 3.72 10^6/uL (4.00-5.40); RED CELL DISTRIBUTION WIDTH 14.4 % (11.5-14.5); WHITE BLOOD COUNT 12.6 10^3/uL (4.0-10.0)
[2017-10-09 07:11] LABS: ANION GAP 5 MEQ/L (8-16); BLOOD UREA NITROGEN 22 MG/DL (7-18); CARBON DIOXIDE LEVEL 29 MEQ/L (21-32); CHLORIDE LEVEL 105 MEQ/L (98-107); CREATININE FOR GFR 0.84 MG/DL (0.55-1.30); GLOMERULAR FILTRATION RATE > 60.0 (>51); GLUCOSE, FASTING 132 MG/DL (70-100); POTASSIUM SERUM 4.2 MEQ/L (3.5-5.1); SODIUM LEVEL 139 MEQ/L (136-145)
[2017-10-09] MEDS: DOXYCYCLINE HYCLATE 100 MG in D5W MINI-BAG PLUS 100 ML IV (08:42)
[2017-10-09] MEDS: FOLIC ACID 1 MG TAB PO (08:43)
[2017-10-09] MEDS: OMEPRAZOLE 20 MG CAP PO (08:43)
[2017-10-09] MEDS: VITAMIN D 1,000 INTERNATIONAL UNITS TABLET PO (08:43)
[2017-10-09] MEDS: ALPRAZolam 0.5 MG TAB PO (08:43)
[2017-10-09] MEDS: FAMOTIDINE 20 MG TAB PO (08:43)
[2017-10-09] MEDS: DEXTROMETHORPHAN 60MG/10ML SUSP 90ML BTL(DELSYM) PO (08:43)
[2017-10-09] MEDS: ASPIRIN 81 MG ENTERIC TAB PO (08:44)
[2017-10-10] MEDS ORDERED: predniSONE 20 MG TAB PO (09:00)
== END 2017-10-09 14:30 | disposition home health service (06) | DRG 720 ==
LOC: M ED 04:41 → M ED INP 07:40 → M MS5PR 09:20
DX: A41.9 Sepsis, unspecified organism (principal); J96.11 Chronic respiratory failure with hypoxia; E87.2 Acidosis; J44.0 Chronic obstructive pulmonary disease with (acute) lower respiratory infection; I50.32 Chronic diastolic (congestive) heart failure; Z99.81 Dependence on supplemental oxygen; J44.1 Chronic obstructive pulmonary disease with (acute) exacerbation; F41.9 Anxiety disorder, unspecified; R51 Headache; F32.9 Major depressive disorder, single episode, unspecified; K21.9 Gastro-esophageal reflux disease without esophagitis; Z86.718 Personal history of other venous thrombosis and embolism; Z90.711 Acquired absence of uterus with remaining cervical stump; Z96.641 Presence of right artificial hip joint; Z87.891 Personal history of nicotine dependence; Z79.82 Long term (current) use of aspirin; Z88.1 Allergy status to other antibiotic agents; Z88.8 Allergy status to other drugs, medicaments and biological substances; Z88.2 Allergy status to sulfonamides; Z88.5 Allergy status to narcotic agent

== ENCOUNTER 2017-10-22 08:47 | Inpatient (IN) | payer OTHER ==
[2017-10-22] MEDS: NS 500 ML IV (09:15)
[2017-10-22 09:51] LABS: BASO % 0.3 % (0.0-1.0); EOS # 0.3 10^3/uL (0.0-0.50); EOS % 3.1 % (0.0-3.0); HEMATOCRIT 38.7 % (36.0-47.0); IMMATURE GRANULOCYTE % 1.2 % (0-3.0); LYMPH # 1.2 10^3/uL (1.5-4.5); LYMPH % 11.9 % (24.0-44.0); MEAN CORPUSCULAR HEMOGLOBIN 27.2 pg (27.0-33.0); MEAN CORPUSCULAR VOLUME 87.8 fl (80.0-96.0); MONO % 9.3 % (0.0-5.0); NEUTROPHILS # 7.6 10^3/uL (1.8-7.7); NEUTROPHILS % 74.2 % (36.0-66.0); PLATELET COUNT, AUTOMATED 254 10^3/uL (150-450); RED BLOOD COUNT 4.41 10^6/uL (4.00-5.40); RED CELL DISTRIBUTION WIDTH 15.2 % (11.5-14.5); WHITE BLOOD COUNT 10.2 10^3/uL (4.0-10.0)
[2017-10-22] MEDS: IPRATROPIUM 0.5MG/ALBUTEROL 2.5MG INH SOL UD 3ML (DUONEB)(J7620) NEB ×4 (09:59→19:28)
[2017-10-22] MEDS: ALBUTEROL SULFATE 2.5 MG/0.5 ML INH NEB SOLN INH (09:59)
[2017-10-22 10:08] LABS: ABG BASE EXCESS 4.6 (-2.0-2.0); ABG HCO3 28.8 MEQ/L (22.0-26.0); ABG O2 SATURATION 98.5 % (95.0-99.0); ABG PARTIAL PRESSURE CO2 41.4 mmHg (35.0-45.0); ABG PARTIAL PRESSURE O2 104.4 mmHg (75.0-100.0); ABG STANDARD HCO3 28.7 MEQ/L (22.0-26.0); ABG TOTAL CO2 30.1 MEQ/L (22.0-29.0); ABG pH (ARTERIAL) 7.461 UNITS (7.350-7.450)
[2017-10-22 10:29] LABS: INFLUENZA A AMPLIFICATION NEGATIVE (NEGATIVE); INFLUENZA B AMPLIFICATION NEGATIVE (NEGATIVE)
[2017-10-22 10:45] LABS: INR 1.24; PROTHROMBIN TIME 15.9 SECONDS (12.4-14.5)
[2017-10-22 11:13] LABS: ALBUMIN 2.9 GM/DL (3.2-5.2); ALBUMIN/GLOBULIN RATIO 0.76 (1.00-1.93); ALKALINE PHOSPHATASE 105 U/L (45-117); ALT/SGPT 31 U/L (12-78); ANION GAP 6 MEQ/L (8-16); AST/SGOT 19 U/L (7-37); BILIRUBIN,DIRECT 0.2 MG/DL (0.0-0.2); BILIRUBIN,TOTAL 0.4 MG/DL (0.2-1.0); BLOOD UREA NITROGEN 18 MG/DL (7-18); CALCIUM LEVEL 8.4 MG/DL (8.5-10.1); CARBON DIOXIDE LEVEL 32 MEQ/L (21-32); CHLORIDE LEVEL 100 MEQ/L (98-107); CPK CREATINE PHOSPHOKINASE 24 U/L (26-192); CREATININE FOR GFR 1.08 MG/DL (0.55-1.30); GLOMERULAR FILTRATION RATE 55.3 (>51); GLUCOSE, FASTING 98 MG/DL (70-100); POTASSIUM SERUM 3.9 MEQ/L (3.5-5.1); SODIUM LEVEL 138 MEQ/L (136-145); TOTAL PROTEIN 6.7 GM/DL (6.4-8.2); TROPONIN I < 0.02 NG/ML (< 0.10)
[2017-10-22 11:18] LABS: CK-MB VALUE MASS < 1.0 NG/ML (<3.6); MB/CK RELATIVE INDEX 4.16 (< OR =4); NT-PRO BNP 317 PG/ML (<125)
[2017-10-22 11:20] LABS: LACTIC ACID SEPSIS PROTOCOL 0.8 MMOL/L (0.4-2.0)
[2017-10-22] MEDS: PERCOCET 5MG/325MG TAB PO ×2 (12:46→17:30)
[2017-10-22] MEDS: CEFTAROLINE FOSAMIL 600 MG in D5W MINI-BAG PLUS 50 ML IV (14:59)
[2017-10-22] MEDS: predniSONE 20 MG TAB PO (15:10)
[2017-10-22] MEDS ORDERED: PILL CRUSHER/CUTTER 1 EACH XX (18:15)
[2017-10-22 18:22] LABS: CK-MB VALUE MASS 1.1 NG/ML (<3.6); CPK CREATINE PHOSPHOKINASE 37 U/L (26-192); MB/CK RELATIVE INDEX 2.97 (< OR =4); TROPONIN I < 0.02 NG/ML (< 0.10)
[2017-10-22] MEDS: SIMVASTATIN 20 MG TAB PO (20:49)
[2017-10-22] MEDS: OMEPRAZOLE 20 MG CAP PO (20:49)
[2017-10-22] MEDS: SPIRONOLACTONE 50 MG TAB PO (20:49)
[2017-10-22] MEDS: traZODone 50 MG TAB PO ×2 (20:50→21:00)
[2017-10-22] MEDS: ALPRAZolam 0.5 MG TAB PO (20:50)
[2017-10-23] MEDS: PERCOCET 5MG/325MG TAB PO ×6 (00:21→22:49)
[2017-10-23] MEDS: predniSONE 20 MG TAB PO ×3 (00:22→20:53)
[2017-10-23] MEDS: CEFTAROLINE FOSAMIL 600 MG in D5W MINI-BAG PLUS 50 ML IV ×2 (02:00→13:40)
[2017-10-23 03:03] LABS: BASO % 0.2 % (0.0-1.0); HEMATOCRIT 34.6 % (36.0-47.0); HEMOGLOBIN 10.8 g/dl (12.0-15.5); IMMATURE GRANULOCYTE % 0.9 % (0-3.0); LYMPH # 0.5 10^3/uL (1.5-4.5); LYMPH % 9.8 % (24.0-44.0); MEAN CORPUSCULAR HEMOGLOBIN 27.4 pg (27.0-33.0); MEAN CORPUSCULAR HGB CONC 31.2 g/dl (32.0-36.5); MEAN CORPUSCULAR VOLUME 87.8 fl (80.0-96.0); MONO # 0.1 10^3/uL (0.0-0.8); MONO % 2.6 % (0.0-5.0); NEUTROPHILS # 4.1 10^3/uL (1.8-7.7); NEUTROPHILS % 86.5 % (36.0-66.0); PLATELET COUNT, AUTOMATED 220 10^3/uL (150-450); RED BLOOD COUNT 3.94 10^6/uL (4.00-5.40); RED CELL DISTRIBUTION WIDTH 14.5 % (11.5-14.5); WHITE BLOOD COUNT 4.7 10^3/uL (4.0-10.0)
[2017-10-23 03:29] LABS: ALBUMIN 2.6 GM/DL (3.2-5.2); ALBUMIN/GLOBULIN RATIO 0.59 (1.00-1.93); ALKALINE PHOSPHATASE 90 U/L (45-117); ALT/SGPT 28 U/L (12-78); ANION GAP 2 MEQ/L (8-16); AST/SGOT 17 U/L (7-37); BILIRUBIN,TOTAL 0.2 MG/DL (0.2-1.0); BLOOD UREA NITROGEN 19 MG/DL (7-18); CARBON DIOXIDE LEVEL 31 MEQ/L (21-32); CHLORIDE LEVEL 104 MEQ/L (98-107); CPK CREATINE PHOSPHOKINASE 19 U/L (26-192); CREATININE FOR GFR 0.78 MG/DL (0.55-1.30); GLOMERULAR FILTRATION RATE > 60.0 (>51); GLUCOSE, FASTING 147 MG/DL (70-100); POTASSIUM SERUM 4.2 MEQ/L (3.5-5.1); SODIUM LEVEL 137 MEQ/L (136-145); TROPONIN I < 0.02 NG/ML (< 0.10)
[2017-10-23 03:30] LABS: CK-MB VALUE MASS < 1.0 NG/ML (<3.6); MB/CK RELATIVE INDEX 5.26 (< OR =4)
[2017-10-23] MEDS: IPRATROPIUM 0.5MG/ALBUTEROL 2.5MG INH SOL UD 3ML (DUONEB)(J7620) NEB ×7 (03:42→23:45)
[2017-10-23] MEDS: FAMOTIDINE 20 MG TAB PO (09:08)
[2017-10-23] MEDS: OMEPRAZOLE 20 MG CAP PO ×2 (09:08→20:53)
[2017-10-23] MEDS: SPIRONOLACTONE 50 MG TAB PO ×2 (09:08→20:52)
[2017-10-23] MEDS: ALPRAZolam 0.5 MG TAB PO ×2 (09:08→20:53)
[2017-10-23] MEDS: ASPIRIN 81 MG ENTERIC TAB PO (09:09)
[2017-10-23] MEDS: VITAMIN D 1,000 INTERNATIONAL UNITS TABLET PO (09:09)
[2017-10-23] MEDS: TORSEMIDE 20 MG TAB PO (09:09)
[2017-10-23] MEDS: lamoTRIgine 100MG TAB PO (09:09)
[2017-10-23] MEDS: FOLIC ACID 1 MG TAB PO (09:09)
[2017-10-23] MEDS: ESCITALOPRAM OXALATE 10 MG TAB (LEXAPRO) PO (09:10)
[2017-10-23 10:48] LABS: CK-MB VALUE MASS < 1.0 NG/ML (<3.6); CPK CREATINE PHOSPHOKINASE 18 U/L (26-192); MB/CK RELATIVE INDEX 5.55 (< OR =4); TROPONIN I < 0.02 NG/ML (< 0.10)
[2017-10-23] MEDS: traZODone 50 MG TAB PO (20:52)
[2017-10-23] MEDS: RIVAROXABAN 10 MG TAB (XARELTO) PO (20:53)
[2017-10-23] MEDS: SIMVASTATIN 20 MG TAB PO (20:53)
[2017-10-24] MEDS: CEFTAROLINE FOSAMIL 600 MG in D5W MINI-BAG PLUS 50 ML IV ×2 (01:44→13:42)
[2017-10-24] MEDS: IPRATROPIUM 0.5MG/ALBUTEROL 2.5MG INH SOL UD 3ML (DUONEB)(J7620) NEB ×6 (03:59→23:25)
[2017-10-24] MEDS: PERCOCET 5MG/325MG TAB PO ×5 (05:03→21:51)
[2017-10-24 05:25] LABS: HEMATOCRIT 32.7 % (36.0-47.0); IMMATURE GRANULOCYTE % 0.7 % (0-3.0); LYMPH # 0.5 10^3/uL (1.5-4.5); LYMPH % 5.9 % (24.0-44.0); MEAN CORPUSCULAR HGB CONC 30.6 g/dl (32.0-36.5); MEAN CORPUSCULAR VOLUME 88.1 fl (80.0-96.0); MONO # 0.3 10^3/uL (0.0-0.8); MONO % 3.5 % (0.0-5.0); NEUTROPHILS # 8.3 10^3/uL (1.8-7.7); NEUTROPHILS % 89.9 % (36.0-66.0); PLATELET COUNT, AUTOMATED 218 10^3/uL (150-450); RED BLOOD COUNT 3.71 10^6/uL (4.00-5.40); RED CELL DISTRIBUTION WIDTH 14.6 % (11.5-14.5); WHITE BLOOD COUNT 9.2 10^3/uL (4.0-10.0)
[2017-10-24 05:44] LABS: ALBUMIN 2.6 GM/DL (3.2-5.2); ALKALINE PHOSPHATASE 81 U/L (45-117); ALT/SGPT 33 U/L (12-78); ANION GAP 4 MEQ/L (8-16); AST/SGOT 24 U/L (7-37); BILIRUBIN,TOTAL 0.1 MG/DL (0.2-1.0); BLOOD UREA NITROGEN 25 MG/DL (7-18); CALCIUM LEVEL 9.1 MG/DL (8.5-10.1); CARBON DIOXIDE LEVEL 30 MEQ/L (21-32); CHLORIDE LEVEL 109 MEQ/L (98-107); CREATININE FOR GFR 1.01 MG/DL (0.55-1.30); GLOMERULAR FILTRATION RATE 59.7 (>51); GLUCOSE, FASTING 149 MG/DL (70-100); POTASSIUM SERUM 4.2 MEQ/L (3.5-5.1); SODIUM LEVEL 143 MEQ/L (136-145); TOTAL PROTEIN 6.9 GM/DL (6.4-8.2)
[2017-10-24] MEDS: SPIRONOLACTONE 50 MG TAB PO ×2 (09:19→20:37)
[2017-10-24] MEDS: FAMOTIDINE 20 MG TAB PO (09:19)
[2017-10-24] MEDS: ALPRAZolam 0.5 MG TAB PO ×2 (09:19→20:38)
[2017-10-24] MEDS: lamoTRIgine 100MG TAB PO (09:20)
[2017-10-24] MEDS: ASPIRIN 81 MG ENTERIC TAB PO (09:21)
[2017-10-24] MEDS: ESCITALOPRAM OXALATE 10 MG TAB (LEXAPRO) PO (09:21)
[2017-10-24] MEDS: VITAMIN D 1,000 INTERNATIONAL UNITS TABLET PO (09:21)
[2017-10-24] MEDS: predniSONE 20 MG TAB PO ×2 (09:22→20:38)
[2017-10-24] MEDS: OMEPRAZOLE 20 MG CAP PO ×2 (09:22→20:38)
[2017-10-24] MEDS: FOLIC ACID 1 MG TAB PO (09:22)
[2017-10-24] MEDS: TORSEMIDE 20 MG TAB PO (09:22)
[2017-10-24] MEDS: MOM 30ML SUSPENSION UDC PO (17:47)
[2017-10-24] MEDS: RIVAROXABAN 10 MG TAB (XARELTO) PO (17:47)
[2017-10-24] MEDS: DOXYCYCLINE HYCLATE 100 MG TAB PO (20:37)
[2017-10-24] MEDS: SIMVASTATIN 20 MG TAB PO (20:37)
[2017-10-24] MEDS: SENOKOT S TAB PO ×2 (20:38→20:41)
[2017-10-24] MEDS: traZODone 50 MG TAB PO (21:51)
[2017-10-25] MEDS: PERCOCET 5MG/325MG TAB PO ×5 (01:52→19:42)
[2017-10-25] MEDS: IPRATROPIUM 0.5MG/ALBUTEROL 2.5MG INH SOL UD 3ML (DUONEB)(J7620) NEB ×8 (02:00→23:31)
[2017-10-25 05:36] LABS: HEMATOCRIT 31.7 % (36.0-47.0); HEMOGLOBIN 9.5 g/dl (12.0-15.5); IMMATURE GRANULOCYTE % 0.7 % (0-3.0); LYMPH # 0.4 10^3/uL (1.5-4.5); LYMPH % 5.1 % (24.0-44.0); MEAN CORPUSCULAR HEMOGLOBIN 26.6 pg (27.0-33.0); MEAN CORPUSCULAR VOLUME 88.8 fl (80.0-96.0); MONO # 0.3 10^3/uL (0.0-0.8); MONO % 3.9 % (0.0-5.0); NEUTROPHILS # 7.7 10^3/uL (1.8-7.7); NEUTROPHILS % 90.3 % (36.0-66.0); PLATELET COUNT, AUTOMATED 238 10^3/uL (150-450); RED BLOOD COUNT 3.57 10^6/uL (4.00-5.40); RED CELL DISTRIBUTION WIDTH 14.7 % (11.5-14.5); WHITE BLOOD COUNT 8.5 10^3/uL (4.0-10.0)
[2017-10-25 05:57] LABS: ALBUMIN 2.4 GM/DL (3.2-5.2); ALKALINE PHOSPHATASE 70 U/L (45-117); ALT/SGPT 39 U/L (12-78); ANION GAP 4 MEQ/L (8-16); AST/SGOT 24 U/L (7-37); BILIRUBIN,TOTAL 0.2 MG/DL (0.2-1.0); BLOOD UREA NITROGEN 28 MG/DL (7-18); CALCIUM LEVEL 9.1 MG/DL (8.5-10.1); CARBON DIOXIDE LEVEL 32 MEQ/L (21-32); CHLORIDE LEVEL 105 MEQ/L (98-107); CREATININE FOR GFR 0.85 MG/DL (0.55-1.30); GLOMERULAR FILTRATION RATE > 60.0 (>51); GLUCOSE, FASTING 144 MG/DL (70-100); POTASSIUM SERUM 4.3 MEQ/L (3.5-5.1); SODIUM LEVEL 141 MEQ/L (136-145); TOTAL PROTEIN 6.4 GM/DL (6.4-8.2)
[2017-10-25] MEDS: MOM 30ML SUSPENSION UDC PO (08:35)
[2017-10-25] MEDS: ESCITALOPRAM OXALATE 10 MG TAB (LEXAPRO) PO (08:35)
[2017-10-25] MEDS: ALPRAZolam 0.5 MG TAB PO ×2 (08:36→20:19)
[2017-10-25] MEDS: TORSEMIDE 20 MG TAB PO (08:36)
[2017-10-25] MEDS: OMEPRAZOLE 20 MG CAP PO ×2 (08:36→20:19)
[2017-10-25] MEDS: FAMOTIDINE 20 MG TAB PO (08:37)
[2017-10-25] MEDS: DOXYCYCLINE HYCLATE 100 MG TAB PO ×2 (08:37→20:18)
[2017-10-25] MEDS: FOLIC ACID 1 MG TAB PO (08:37)
[2017-10-25] MEDS: lamoTRIgine 100MG TAB PO (08:37)
[2017-10-25] MEDS: predniSONE 20 MG TAB PO ×2 (08:37→20:18)
[2017-10-25] MEDS: SPIRONOLACTONE 50 MG TAB PO ×2 (08:38→20:19)
[2017-10-25] MEDS: VITAMIN D 1,000 INTERNATIONAL UNITS TABLET PO (08:38)
[2017-10-25] MEDS: ASPIRIN 81 MG ENTERIC TAB PO (08:38)
[2017-10-25] MEDS: SENOKOT S TAB PO ×2 (08:39→20:19)
[2017-10-25] MEDS: RIVAROXABAN 10 MG TAB (XARELTO) PO (17:19)
[2017-10-25] MEDS: SIMVASTATIN 20 MG TAB PO (20:19)
[2017-10-25] MEDS: traZODone 50 MG TAB PO (21:50)
[2017-10-26] MEDS: IPRATROPIUM 0.5MG/ALBUTEROL 2.5MG INH SOL UD 3ML (DUONEB)(J7620) NEB ×6 (03:58→23:58)
[2017-10-26] MEDS: PERCOCET 5MG/325MG TAB PO ×6 (04:31→21:40)
[2017-10-26 05:57] LABS: BASO % 0.1 % (0.0-1.0); HEMATOCRIT 32.1 % (36.0-47.0); HEMOGLOBIN 9.7 g/dl (12.0-15.5); LYMPH # 0.4 10^3/uL (1.5-4.5); LYMPH % 4.8 % (24.0-44.0); MEAN CORPUSCULAR HEMOGLOBIN 27.2 pg (27.0-33.0); MEAN CORPUSCULAR HGB CONC 30.2 g/dl (32.0-36.5); MEAN CORPUSCULAR VOLUME 89.9 fl (80.0-96.0); MONO # 0.4 10^3/uL (0.0-0.8); MONO % 4.8 % (0.0-5.0); NEUTROPHILS # 7.1 10^3/uL (1.8-7.7); NEUTROPHILS % 88.3 % (36.0-66.0); PLATELET COUNT, AUTOMATED 226 10^3/uL (150-450); RED BLOOD COUNT 3.57 10^6/uL (4.00-5.40); RED CELL DISTRIBUTION WIDTH 14.7 % (11.5-14.5)
[2017-10-26 06:28] LABS: ALBUMIN 2.6 GM/DL (3.2-5.2); ALBUMIN/GLOBULIN RATIO 0.67 (1.00-1.93); ALKALINE PHOSPHATASE 74 U/L (45-117); ALT/SGPT 42 U/L (12-78); ANION GAP 2 MEQ/L (8-16); AST/SGOT 23 U/L (7-37); BILIRUBIN,TOTAL 0.2 MG/DL (0.2-1.0); BLOOD UREA NITROGEN 30 MG/DL (7-18); CALCIUM LEVEL 8.7 MG/DL (8.5-10.1); CARBON DIOXIDE LEVEL 33 MEQ/L (21-32); CHLORIDE LEVEL 106 MEQ/L (98-107); CREATININE FOR GFR 1.03 MG/DL (0.55-1.30); GLOMERULAR FILTRATION RATE 58.4 (>51); GLUCOSE, FASTING 139 MG/DL (70-100); POTASSIUM SERUM 4.9 MEQ/L (3.5-5.1); SODIUM LEVEL 141 MEQ/L (136-145); TOTAL PROTEIN 6.5 GM/DL (6.4-8.2)
[2017-10-26] MEDS: OMEPRAZOLE 20 MG CAP PO ×2 (08:41→21:40)
[2017-10-26] MEDS: SENOKOT S TAB PO ×2 (08:41→21:40)
[2017-10-26] MEDS: FOLIC ACID 1 MG TAB PO (08:41)
[2017-10-26] MEDS: ESCITALOPRAM OXALATE 10 MG TAB (LEXAPRO) PO (08:41)
[2017-10-26] MEDS: DOXYCYCLINE HYCLATE 100 MG TAB PO ×2 (08:42→21:40)
[2017-10-26] MEDS: FAMOTIDINE 20 MG TAB PO (08:42)
[2017-10-26] MEDS: TORSEMIDE 20 MG TAB PO (08:42)
[2017-10-26] MEDS: ASPIRIN 81 MG ENTERIC TAB PO (08:42)
[2017-10-26] MEDS: SPIRONOLACTONE 50 MG TAB PO ×2 (08:42→21:39)
[2017-10-26] MEDS: predniSONE 20 MG TAB PO ×2 (08:42→21:40)
[2017-10-26] MEDS: lamoTRIgine 100MG TAB PO (08:43)
[2017-10-26] MEDS: VITAMIN D 1,000 INTERNATIONAL UNITS TABLET PO (08:43)
[2017-10-26] MEDS: ALPRAZolam 0.5 MG TAB PO ×2 (08:43→21:40)
[2017-10-26] MEDS: RIVAROXABAN 10 MG TAB (XARELTO) PO (17:23)
[2017-10-26] MEDS: ADVAIR HFA 230/21MCG INHALER INH ×2 (20:04→21:00)
[2017-10-26] MEDS: traZODone 50 MG TAB PO (21:39)
[2017-10-26] MEDS: SIMVASTATIN 20 MG TAB PO (21:40)
[2017-10-27] MEDS: IPRATROPIUM 0.5MG/ALBUTEROL 2.5MG INH SOL UD 3ML (DUONEB)(J7620) NEB ×5 (04:03→23:33)
[2017-10-27] MEDS: PERCOCET 5MG/325MG TAB PO ×5 (04:03→22:06)
[2017-10-27 06:16] LABS: BASO % 0.1 % (0.0-1.0); HEMATOCRIT 32.3 % (36.0-47.0); HEMOGLOBIN 9.9 g/dl (12.0-15.5); IMMATURE GRANULOCYTE % 1.9 % (0-3.0); LYMPH # 0.4 10^3/uL (1.5-4.5); LYMPH % 5.7 % (24.0-44.0); MEAN CORPUSCULAR HEMOGLOBIN 27.2 pg (27.0-33.0); MEAN CORPUSCULAR HGB CONC 30.7 g/dl (32.0-36.5); MEAN CORPUSCULAR VOLUME 88.7 fl (80.0-96.0); MONO # 0.3 10^3/uL (0.0-0.8); MONO % 3.6 % (0.0-5.0); NEUTROPHILS # 6.8 10^3/uL (1.8-7.7); NEUTROPHILS % 88.7 % (36.0-66.0); PLATELET COUNT, AUTOMATED 222 10^3/uL (150-450); RED BLOOD COUNT 3.64 10^6/uL (4.00-5.40); RED CELL DISTRIBUTION WIDTH 14.7 % (11.5-14.5); WHITE BLOOD COUNT 7.7 10^3/uL (4.0-10.0)
[2017-10-27 06:39] LABS: ALBUMIN 2.6 GM/DL (3.2-5.2); ALKALINE PHOSPHATASE 64 U/L (45-117); ALT/SGPT 39 U/L (12-78); ANION GAP 2 MEQ/L (8-16); AST/SGOT 19 U/L (7-37); BILIRUBIN,TOTAL 0.2 MG/DL (0.2-1.0); BLOOD UREA NITROGEN 32 MG/DL (7-18); CALCIUM LEVEL 9.1 MG/DL (8.5-10.1); CARBON DIOXIDE LEVEL 33 MEQ/L (21-32); CHLORIDE LEVEL 102 MEQ/L (98-107); CREATININE FOR GFR 0.85 MG/DL (0.55-1.30); GLOMERULAR FILTRATION RATE > 60.0 (>51); GLUCOSE, FASTING 139 MG/DL (70-100); MAGNESIUM LEVEL 2.7 MG/DL (1.8-2.4); POTASSIUM SERUM 4.8 MEQ/L (3.5-5.1); SODIUM LEVEL 137 MEQ/L (136-145); TOTAL PROTEIN 6.3 GM/DL (6.4-8.2)
[2017-10-27] MEDS: ADVAIR HFA 230/21MCG INHALER INH (07:56)
[2017-10-27] MEDS: OMEPRAZOLE 20 MG CAP PO ×2 (08:43→20:31)
[2017-10-27] MEDS: SPIRONOLACTONE 50 MG TAB PO ×2 (08:43→20:31)
[2017-10-27] MEDS: ALPRAZolam 0.5 MG TAB PO ×2 (08:43→20:31)
[2017-10-27] MEDS: SENOKOT S TAB PO ×2 (08:43→20:31)
[2017-10-27] MEDS: VITAMIN D 1,000 INTERNATIONAL UNITS TABLET PO (08:43)
[2017-10-27] MEDS: FOLIC ACID 1 MG TAB PO (08:43)
[2017-10-27] MEDS: FAMOTIDINE 20 MG TAB PO (08:44)
[2017-10-27] MEDS: lamoTRIgine 100MG TAB PO (08:44)
[2017-10-27] MEDS: ASPIRIN 81 MG ENTERIC TAB PO (08:44)
[2017-10-27] MEDS: ESCITALOPRAM OXALATE 10 MG TAB (LEXAPRO) PO (08:44)
[2017-10-27] MEDS: TORSEMIDE 20 MG TAB PO (08:44)
[2017-10-27] MEDS: predniSONE 20 MG TAB PO ×2 (08:44→20:32)
[2017-10-27] MEDS: DOXYCYCLINE HYCLATE 100 MG TAB PO ×2 (08:45→20:31)
[2017-10-27] MEDS: BUDESONIDE 0.5 MG/2 ML INHALATION SUSPENSION INH ×2 (11:20→19:28)
[2017-10-27] MEDS: FORMOTEROL FUMARATE 20 MCG/2 ML INHALATION SOLUTION (PERFOROMIST) INH ×2 (11:21→19:28)
[2017-10-27] MEDS: RIVAROXABAN 10 MG TAB (XARELTO) PO (18:01)
[2017-10-27] MEDS: SIMVASTATIN 20 MG TAB PO (20:31)
[2017-10-27] MEDS: traZODone 50 MG TAB PO (22:06)
[2017-10-28] MEDS: PERCOCET 5MG/325MG TAB PO ×6 (02:08→22:31)
[2017-10-28] MEDS: IPRATROPIUM 0.5MG/ALBUTEROL 2.5MG INH SOL UD 3ML (DUONEB)(J7620) NEB ×5 (04:39→23:38)
[2017-10-28 05:49] LABS: BASO % 0.1 % (0.0-1.0); HEMATOCRIT 31.9 % (36.0-47.0); HEMOGLOBIN 9.8 g/dl (12.0-15.5); IMMATURE GRANULOCYTE % 1.9 % (0-3.0); LYMPH # 0.6 10^3/uL (1.5-4.5); LYMPH % 6.6 % (24.0-44.0); MEAN CORPUSCULAR HGB CONC 30.7 g/dl (32.0-36.5); MEAN CORPUSCULAR VOLUME 87.9 fl (80.0-96.0); MONO # 0.3 10^3/uL (0.0-0.8); NEUTROPHILS # 7.3 10^3/uL (1.8-7.7); NEUTROPHILS % 88.4 % (36.0-66.0); PLATELET COUNT, AUTOMATED 219 10^3/uL (150-450); RED BLOOD COUNT 3.63 10^6/uL (4.00-5.40); RED CELL DISTRIBUTION WIDTH 14.6 % (11.5-14.5); WHITE BLOOD COUNT 8.3 10^3/uL (4.0-10.0)
[2017-10-28 06:09] LABS: ALBUMIN 2.7 GM/DL (3.2-5.2); ALBUMIN/GLOBULIN RATIO 0.75 (1.00-1.93); ALKALINE PHOSPHATASE 61 U/L (45-117); ALT/SGPT 39 U/L (12-78); ANION GAP 2 MEQ/L (8-16); AST/SGOT 17 U/L (7-37); BILIRUBIN,TOTAL 0.3 MG/DL (0.2-1.0); BLOOD UREA NITROGEN 30 MG/DL (7-18); CALCIUM LEVEL 9.2 MG/DL (8.5-10.1); CARBON DIOXIDE LEVEL 35 MEQ/L (21-32); CHLORIDE LEVEL 100 MEQ/L (98-107); CREATININE FOR GFR 0.77 MG/DL (0.55-1.30); GLOMERULAR FILTRATION RATE > 60.0 (>51); GLUCOSE, FASTING 123 MG/DL (70-100); MAGNESIUM LEVEL 2.5 MG/DL (1.8-2.4); POTASSIUM SERUM 4.6 MEQ/L (3.5-5.1); SODIUM LEVEL 137 MEQ/L (136-145); TOTAL PROTEIN 6.3 GM/DL (6.4-8.2)
[2017-10-28] MEDS: BUDESONIDE 0.5 MG/2 ML INHALATION SUSPENSION INH ×2 (07:24→20:27)
[2017-10-28] MEDS: FORMOTEROL FUMARATE 20 MCG/2 ML INHALATION SOLUTION (PERFOROMIST) INH ×2 (07:24→20:27)
[2017-10-28] MEDS: DOXYCYCLINE HYCLATE 100 MG TAB PO ×2 (08:48→21:11)
[2017-10-28] MEDS: OMEPRAZOLE 20 MG CAP PO ×2 (08:49→21:11)
[2017-10-28] MEDS: TORSEMIDE 20 MG TAB PO (08:49)
[2017-10-28] MEDS: FOLIC ACID 1 MG TAB PO (08:49)
[2017-10-28] MEDS: predniSONE 20 MG TAB PO ×2 (08:49→21:10)
[2017-10-28] MEDS: SENOKOT S TAB PO ×2 (08:49→21:11)
[2017-10-28] MEDS: ASPIRIN 81 MG ENTERIC TAB PO (08:49)
[2017-10-28] MEDS: ALPRAZolam 0.5 MG TAB PO ×2 (08:49→21:11)
[2017-10-28] MEDS: SPIRONOLACTONE 50 MG TAB PO ×2 (08:50→21:10)
[2017-10-28] MEDS: FAMOTIDINE 20 MG TAB PO (08:50)
[2017-10-28] MEDS: ESCITALOPRAM OXALATE 10 MG TAB (LEXAPRO) PO (08:50)
[2017-10-28] MEDS: VITAMIN D 1,000 INTERNATIONAL UNITS TABLET PO (08:50)
[2017-10-28] MEDS: lamoTRIgine 100MG TAB PO (08:50)
[2017-10-28] MEDS: RIVAROXABAN 10 MG TAB (XARELTO) PO (18:20)
[2017-10-28] MEDS: SIMVASTATIN 20 MG TAB PO (21:11)
[2017-10-28] MEDS: traZODone 50 MG TAB PO (21:11)
[2017-10-29] MEDS: PERCOCET 5MG/325MG TAB PO ×5 (02:53→20:11)
[2017-10-29] MEDS: IPRATROPIUM 0.5MG/ALBUTEROL 2.5MG INH SOL UD 3ML (DUONEB)(J7620) NEB ×5 (03:05→20:00)
[2017-10-29 05:55] LABS: BASO % 0.1 % (0.0-1.0); HEMATOCRIT 33.4 % (36.0-47.0); HEMOGLOBIN 10.3 g/dl (12.0-15.5); IMMATURE GRANULOCYTE % 1.5 % (0-3.0); LYMPH # 0.5 10^3/uL (1.5-4.5); LYMPH % 4.6 % (24.0-44.0); MEAN CORPUSCULAR HEMOGLOBIN 26.7 pg (27.0-33.0); MEAN CORPUSCULAR HGB CONC 30.8 g/dl (32.0-36.5); MEAN CORPUSCULAR VOLUME 86.5 fl (80.0-96.0); MONO # 0.3 10^3/uL (0.0-0.8); MONO % 3.5 % (0.0-5.0); NEUTROPHILS # 8.9 10^3/uL (1.8-7.7); NEUTROPHILS % 90.3 % (36.0-66.0); PLATELET COUNT, AUTOMATED 259 10^3/uL (150-450); RED BLOOD COUNT 3.86 10^6/uL (4.00-5.40); RED CELL DISTRIBUTION WIDTH 14.6 % (11.5-14.5); WHITE BLOOD COUNT 9.8 10^3/uL (4.0-10.0)
[2017-10-29 06:15] LABS: ALBUMIN 2.7 GM/DL (3.2-5.2); ALBUMIN/GLOBULIN RATIO 0.75 (1.00-1.93); ALKALINE PHOSPHATASE 60 U/L (45-117); ALT/SGPT 41 U/L (12-78); ANION GAP 4 MEQ/L (8-16); AST/SGOT 16 U/L (7-37); BILIRUBIN,TOTAL 0.2 MG/DL (0.2-1.0); BLOOD UREA NITROGEN 29 MG/DL (7-18); CARBON DIOXIDE LEVEL 34 MEQ/L (21-32); CHLORIDE LEVEL 100 MEQ/L (98-107); CREATININE FOR GFR 0.81 MG/DL (0.55-1.30); GLOMERULAR FILTRATION RATE > 60.0 (>51); GLUCOSE, FASTING 135 MG/DL (70-100); POTASSIUM SERUM 4.6 MEQ/L (3.5-5.1); SODIUM LEVEL 138 MEQ/L (136-145); TOTAL PROTEIN 6.3 GM/DL (6.4-8.2)
[2017-10-29] MEDS: FORMOTEROL FUMARATE 20 MCG/2 ML INHALATION SOLUTION (PERFOROMIST) INH ×2 (07:14→20:16)
[2017-10-29] MEDS: BUDESONIDE 0.5 MG/2 ML INHALATION SUSPENSION INH ×2 (07:14→20:16)
[2017-10-29] MEDS: VITAMIN D 1,000 INTERNATIONAL UNITS TABLET PO (10:08)
[2017-10-29] MEDS: lamoTRIgine 100MG TAB PO (10:09)
[2017-10-29] MEDS: OMEPRAZOLE 20 MG CAP PO ×2 (10:09→20:10)
[2017-10-29] MEDS: predniSONE 20 MG TAB PO ×2 (10:09→20:09)
[2017-10-29] MEDS: ASPIRIN 81 MG ENTERIC TAB PO (10:10)
[2017-10-29] MEDS: ALPRAZolam 0.5 MG TAB PO ×2 (10:10→20:09)
[2017-10-29] MEDS: FAMOTIDINE 20 MG TAB PO (10:10)
[2017-10-29] MEDS: DOXYCYCLINE HYCLATE 100 MG TAB PO ×2 (10:10→20:09)
[2017-10-29] MEDS: TORSEMIDE 20 MG TAB PO (10:10)
[2017-10-29] MEDS: ESCITALOPRAM OXALATE 10 MG TAB (LEXAPRO) PO (10:11)
[2017-10-29] MEDS: FOLIC ACID 1 MG TAB PO (10:11)
[2017-10-29] MEDS: SENOKOT S TAB PO ×2 (10:11→20:09)
[2017-10-29] MEDS: SPIRONOLACTONE 50 MG TAB PO ×2 (10:11→20:09)
[2017-10-29] MEDS: ONDANSETRON 4 MG TAB (S0181) PO (17:43)
[2017-10-29] MEDS: RIVAROXABAN 10 MG TAB (XARELTO) PO (17:43)
[2017-10-29] MEDS: SIMVASTATIN 20 MG TAB PO (20:09)
[2017-10-29] MEDS: traZODone 50 MG TAB PO (20:10)
[2017-10-30] MEDS: IPRATROPIUM 0.5MG/ALBUTEROL 2.5MG INH SOL UD 3ML (DUONEB)(J7620) NEB ×8 (00:03→23:23)
[2017-10-30] MEDS: PERCOCET 5MG/325MG TAB PO ×4 (02:54→18:28)
[2017-10-30 06:10] LABS: BASO % 0.1 % (0.0-1.0); HEMATOCRIT 34.7 % (36.0-47.0); HEMOGLOBIN 10.9 g/dl (12.0-15.5); IMMATURE GRANULOCYTE % 1.5 % (0-3.0); LYMPH # 0.4 10^3/uL (1.5-4.5); LYMPH % 4.6 % (24.0-44.0); MEAN CORPUSCULAR HGB CONC 31.4 g/dl (32.0-36.5); MEAN CORPUSCULAR VOLUME 86.1 fl (80.0-96.0); MONO # 0.4 10^3/uL (0.0-0.8); MONO % 4.3 % (0.0-5.0); NEUTROPHILS % 89.5 % (36.0-66.0); PLATELET COUNT, AUTOMATED 272 10^3/uL (150-450); RED BLOOD COUNT 4.03 10^6/uL (4.00-5.40); RED CELL DISTRIBUTION WIDTH 14.6 % (11.5-14.5); WHITE BLOOD COUNT 8.9 10^3/uL (4.0-10.0)
[2017-10-30 06:34] LABS: ANION GAP 3 MEQ/L (8-16); BLOOD UREA NITROGEN 31 MG/DL (7-18); CARBON DIOXIDE LEVEL 34 MEQ/L (21-32); CHLORIDE LEVEL 100 MEQ/L (98-107); CREATININE FOR GFR 0.81 MG/DL (0.55-1.30); GLOMERULAR FILTRATION RATE > 60.0 (>51); GLUCOSE, FASTING 134 MG/DL (70-100); POTASSIUM SERUM 4.7 MEQ/L (3.5-5.1); SODIUM LEVEL 137 MEQ/L (136-145)
[2017-10-30 06:35] LABS: CALCIUM LEVEL 9.3 MG/DL (8.5-10.1); MAGNESIUM LEVEL 2.4 MG/DL (1.8-2.4)
[2017-10-30] MEDS: OMEPRAZOLE 20 MG CAP PO ×2 (08:29→21:26)
[2017-10-30] MEDS: ESCITALOPRAM OXALATE 10 MG TAB (LEXAPRO) PO (08:29)
[2017-10-30] MEDS: ALPRAZolam 0.5 MG TAB PO ×2 (08:29→21:25)
[2017-10-30] MEDS: DOXYCYCLINE HYCLATE 100 MG TAB PO ×2 (08:29→21:26)
[2017-10-30] MEDS: FOLIC ACID 1 MG TAB PO (08:30)
[2017-10-30] MEDS: ASPIRIN 81 MG ENTERIC TAB PO (08:30)
[2017-10-30] MEDS: lamoTRIgine 100MG TAB PO (08:30)
[2017-10-30] MEDS: TORSEMIDE 20 MG TAB PO (08:31)
[2017-10-30] MEDS: FAMOTIDINE 20 MG TAB PO (08:31)
[2017-10-30] MEDS: SENOKOT S TAB PO ×2 (08:31→21:25)
[2017-10-30] MEDS: SPIRONOLACTONE 50 MG TAB PO ×2 (08:31→21:25)
[2017-10-30] MEDS: predniSONE 20 MG TAB PO ×2 (08:31→21:25)
[2017-10-30] MEDS: VITAMIN D 1,000 INTERNATIONAL UNITS TABLET PO (08:31)
[2017-10-30] MEDS: FORMOTEROL FUMARATE 20 MCG/2 ML INHALATION SOLUTION (PERFOROMIST) INH ×2 (08:35→20:21)
[2017-10-30] MEDS: BUDESONIDE 0.5 MG/2 ML INHALATION SUSPENSION INH ×2 (08:35→20:21)
[2017-10-30] MEDS: MOM 30ML SUSPENSION UDC PO (15:31)
[2017-10-30] MEDS: ONDANSETRON 4 MG TAB (S0181) PO (15:31)
[2017-10-30] MEDS: RIVAROXABAN 10 MG TAB (XARELTO) PO (18:28)
[2017-10-30] MEDS: SIMVASTATIN 20 MG TAB PO (21:25)
[2017-10-30] MEDS: traZODone 50 MG TAB PO (21:26)
[2017-10-31] MEDS: IPRATROPIUM 0.5MG/ALBUTEROL 2.5MG INH SOL UD 3ML (DUONEB)(J7620) NEB ×4 (01:09→13:08)
[2017-10-31] MEDS: PERCOCET 5MG/325MG TAB PO ×3 (02:33→10:58)
[2017-10-31 06:01] LABS: BASO % 0.1 % (0.0-1.0); HEMATOCRIT 36.4 % (36.0-47.0); HEMOGLOBIN 11.2 g/dl (12.0-15.5); IMMATURE GRANULOCYTE % 1.5 % (0-3.0); LYMPH # 0.3 10^3/uL (1.5-4.5); LYMPH % 3.1 % (24.0-44.0); MEAN CORPUSCULAR HEMOGLOBIN 26.7 pg (27.0-33.0); MEAN CORPUSCULAR HGB CONC 30.8 g/dl (32.0-36.5); MEAN CORPUSCULAR VOLUME 86.7 fl (80.0-96.0); MONO # 0.6 10^3/uL (0.0-0.8); MONO % 5.6 % (0.0-5.0); NEUTROPHILS # 9.1 10^3/uL (1.8-7.7); NEUTROPHILS % 89.7 % (36.0-66.0); PLATELET COUNT, AUTOMATED 292 10^3/uL (150-450); RED CELL DISTRIBUTION WIDTH 14.7 % (11.5-14.5); WHITE BLOOD COUNT 10.1 10^3/uL (4.0-10.0)
[2017-10-31 06:39] LABS: ANION GAP 4 MEQ/L (8-16); BLOOD UREA NITROGEN 35 MG/DL (7-18); CALCIUM LEVEL 9.1 MG/DL (8.5-10.1); CARBON DIOXIDE LEVEL 33 MEQ/L (21-32); CHLORIDE LEVEL 102 MEQ/L (98-107); CREATININE FOR GFR 1.14 MG/DL (0.55-1.30); GLOMERULAR FILTRATION RATE 51.9 (>51); GLUCOSE, FASTING 153 MG/DL (70-100); MAGNESIUM LEVEL 3.4 MG/DL (1.8-2.4); POTASSIUM SERUM 5.1 MEQ/L (3.5-5.1); SODIUM LEVEL 139 MEQ/L (136-145)
[2017-10-31] MEDS: FORMOTEROL FUMARATE 20 MCG/2 ML INHALATION SOLUTION (PERFOROMIST) INH (07:22)
[2017-10-31] MEDS: BUDESONIDE 0.5 MG/2 ML INHALATION SUSPENSION INH (07:22)
[2017-10-31] MEDS: DOXYCYCLINE HYCLATE 100 MG TAB PO (09:00)
[2017-10-31] MEDS: ALPRAZolam 0.5 MG TAB PO (10:29)
[2017-10-31] MEDS: lamoTRIgine 100MG TAB PO (10:31)
[2017-10-31] MEDS: SENOKOT S TAB PO (10:31)
[2017-10-31] MEDS: OMEPRAZOLE 20 MG CAP PO (10:31)
[2017-10-31] MEDS: FOLIC ACID 1 MG TAB PO (10:32)
[2017-10-31] MEDS: SPIRONOLACTONE 25 MG TAB PO (10:32)
[2017-10-31] MEDS: ASPIRIN 81 MG ENTERIC TAB PO (10:32)
[2017-10-31] MEDS: predniSONE 20 MG TAB PO (10:32)
[2017-10-31] MEDS: VITAMIN D 1,000 INTERNATIONAL UNITS TABLET PO (10:32)
[2017-10-31] MEDS: ESCITALOPRAM OXALATE 10 MG TAB (LEXAPRO) PO (10:32)
[2017-10-31] MEDS: TORSEMIDE 20 MG TAB PO (10:32)
[2017-10-31] MEDS: FAMOTIDINE 20 MG TAB PO (10:33)
== END 2017-10-31 14:11 | disposition home or self-care (01) | DRG 140 ==
LOC: M MSPAV 10-25 12:14 → M ED 08:47 → M ED INP 13:59 → M PCU 15:52
DX: J44.1 Chronic obstructive pulmonary disease with (acute) exacerbation (principal); J18.9 Pneumonia, unspecified organism; J96.11 Chronic respiratory failure with hypoxia; I27.20 Pulmonary hypertension, unspecified; I50.32 Chronic diastolic (congestive) heart failure; Z99.81 Dependence on supplemental oxygen; K21.9 Gastro-esophageal reflux disease without esophagitis; M54.9 Dorsalgia, unspecified; F32.9 Major depressive disorder, single episode, unspecified; F41.9 Anxiety disorder, unspecified; Z86.718 Personal history of other venous thrombosis and embolism; Z90.711 Acquired absence of uterus with remaining cervical stump; Z96.641 Presence of right artificial hip joint; Z87.891 Personal history of nicotine dependence; W01.0XXA Fall on same level from slipping, tripping and stumbling without subsequent striking against object, initial encounter; Y92.019 Unspecified place in single-family (private) house as the place of occurrence of the external cause; Z79.82 Long term (current) use of aspirin; Z79.01 Long term (current) use of anticoagulants; Z79.899 Other long term (current) drug therapy; Z88.0 Allergy status to penicillin; Z88.2 Allergy status to sulfonamides; Z88.8 Allergy status to other drugs, medicaments and biological substances; Z88.5 Allergy status to narcotic agent; Z88.1 Allergy status to other antibiotic agents; Y95 Nosocomial condition; J44.0 Chronic obstructive pulmonary disease with (acute) lower respiratory infection

== ENCOUNTER → 2017-11-13 | Outpatient (REF) | payer OTHER ==
[2017-11-13 16:20] LABS: ANION GAP 5 MEQ/L (8-16); BLOOD UREA NITROGEN 23 MG/DL (7-18); CALCIUM LEVEL 8.8 MG/DL (8.5-10.1); CARBON DIOXIDE LEVEL 33 MEQ/L (21-32); CHLORIDE LEVEL 106 MEQ/L (98-107); CREATININE FOR GFR 1.07 MG/DL (0.55-1.30); GLOMERULAR FILTRATION RATE 55.9 (>51); GLUCOSE, FASTING 138 MG/DL (70-100); POTASSIUM SERUM 3.8 MEQ/L (3.5-5.1); SODIUM LEVEL 144 MEQ/L (136-145)
== END ==
LOC: M LAB REF 15:45
DX: I50.32 Chronic diastolic (congestive) heart failure (principal)
CPT/HCPCS: 80048

== ENCOUNTER 2017-12-25 17:41 | Inpatient (IN) | payer OTHER ==
[2017-12-25] MEDS: NORCO, ANEXSIA 5/325MG TABLET (HYDROcodone/ACETAMINOPHEN) PO (20:00)
[2017-12-25 20:30] LABS: BASO % 0.4 % (0.0-1.0); EOS # 0.2 10^3/uL (0.0-0.50); EOS % 1.9 % (0.0-3.0); HEMATOCRIT 38.4 % (36.0-47.0); HEMOGLOBIN 10.9 g/dl (12.0-15.5); IMMATURE GRANULOCYTE % 0.4 % (0-3.0); LYMPH # 2.2 10^3/uL (1.5-4.5); MEAN CORPUSCULAR HEMOGLOBIN 25.3 pg (27.0-33.0); MEAN CORPUSCULAR HGB CONC 28.4 g/dl (32.0-36.5); MEAN CORPUSCULAR VOLUME 89.3 fl (80.0-96.0); MONO # 1.1 10^3/uL (0.0-0.8); MONO % 11.1 % (0.0-5.0); NEUTROPHILS # 6.5 10^3/uL (1.8-7.7); NEUTROPHILS % 64.2 % (36.0-66.0); PLATELET COUNT, AUTOMATED 257 10^3/uL (150-450); RED CELL DISTRIBUTION WIDTH 15.9 % (11.5-14.5); WHITE BLOOD COUNT 10.1 10^3/uL (4.0-10.0)
[2017-12-25 20:42] LABS: INR 1.17; PARTIAL THROMBOPLASTIN TIME 32.8 SECONDS (25.4-37.6); PROTHROMBIN TIME 15.1 SECONDS (12.1-14.4)
[2017-12-25 20:53] LABS: LACTIC ACID SEPSIS PROTOCOL 1.1 MMOL/L (0.4-2.0)
[2017-12-25] MEDS: IPRATROPIUM 0.5MG/ALBUTEROL 2.5MG INH SOL UD 3ML (DUONEB)(J7620) NEB (20:53)
[2017-12-25 20:54] LABS: ALBUMIN 3.2 GM/DL (3.2-5.2); ALBUMIN/GLOBULIN RATIO 0.86 (1.00-1.93); ALKALINE PHOSPHATASE 88 U/L (45-117); ALT/SGPT 23 U/L (12-78); ANION GAP 2 MEQ/L (8-16); AST/SGOT 52 U/L (7-37); BILIRUBIN,DIRECT < 0.1 MG/DL (0.0-0.2); BILIRUBIN,TOTAL 0.3 MG/DL (0.2-1.0); BLOOD UREA NITROGEN 10 MG/DL (7-18); CALCIUM LEVEL 8.9 MG/DL (8.5-10.1); CARBON DIOXIDE LEVEL 37 MEQ/L (21-32); CHLORIDE LEVEL 103 MEQ/L (98-107); CREATININE FOR GFR 0.97 MG/DL (0.55-1.30); GLOMERULAR FILTRATION RATE > 60.0 (>51); GLUCOSE, FASTING 105 MG/DL (70-100); POTASSIUM SERUM 4.9 MEQ/L (3.5-5.1); SODIUM LEVEL 142 MEQ/L (136-145); TOTAL PROTEIN 6.9 GM/DL (6.4-8.2)
[2017-12-25] MEDS: NS 500 ML IV (21:00)
[2017-12-25 23:29] LABS: APPEARANCE, URINE HAZY (CLEAR); BACTERIA, URINE AUTO 1+ (NEGATIVE); BILIRUBIN, URINE AUTO NEGATIVE (NEGATIVE); BLOOD, URINE BLOOD 1+ (NEGATIVE); COLOR, URINE AMBER (YELLOW); GLUCOSE, URINE (UA) AUTO NEGATIVE (NEGATIVE); KETONE, URINE AUTO NEGATIVE (NEGATIVE); LEUKOCYTE ESTERASE, URINE AUTO NEGATIVE (NEGATIVE); MUCUS, URINE SMALL (NEGATIVE); NITRITE, URINE AUTO POSITIVE (NEGATIVE); PROTEIN, URINE AUTO NEGATIVE (NEGATIVE); RBC, URINE AUTO 2 /HPF (0-3); SPECIFIC GRAVITY URINE AUTO 1.027 (1.002-1.035); SQUAMOUS EPITHELIAL CELL UR AU 1 /HPF (0-6); UROBILINOGEN, URINE AUTO 0.2 mg/dL (0.0-2.0); WBC, URINE AUTO 9 /HPF (0-3)
[2017-12-26] MEDS ORDERED: ALBUTEROL 90 MCG/ACT 8GM HFA INHALER INH (04:00)
[2017-12-26] MEDS ORDERED: NITROGLYCERIN 0.4 MG SUBL TABLET SL (04:00)
[2017-12-26] MEDS: PERCOCET 5MG/325MG TAB PO ×5 (04:26→23:25)
[2017-12-26] MEDS: NITROFURANTOIN (MACROBID) 100 MG CAP PO ×2 (08:35→20:47)
[2017-12-26] MEDS: SPIRONOLACTONE 50 MG TAB PO ×2 (08:35→20:47)
[2017-12-26] MEDS: FOLIC ACID 1 MG TAB PO (08:35)
[2017-12-26] MEDS: ASPIRIN 81 MG ENTERIC TAB PO (08:35)
[2017-12-26] MEDS: ALPRAZolam 0.5 MG TAB PO ×2 (08:35→20:47)
[2017-12-26] MEDS: ESCITALOPRAM OXALATE 10 MG TAB (LEXAPRO) PO (08:36)
[2017-12-26] MEDS: TORSEMIDE 20 MG TAB PO (08:36)
[2017-12-26] MEDS: VITAMIN D 1,000 INTERNATIONAL UNITS TABLET PO (08:36)
[2017-12-26] MEDS: FAMOTIDINE 20 MG TAB PO (08:36)
[2017-12-26] MEDS: OMEPRAZOLE 20 MG CAP PO ×2 (08:36→20:47)
[2017-12-26] MEDS: FORMOTEROL FUMARATE 20 MCG/2 ML INHALATION SOLUTION (PERFOROMIST) INH ×2 (09:05→19:16)
[2017-12-26 09:18] LABS: HEMATOCRIT 34.9 % (36.0-47.0); HEMOGLOBIN 9.9 g/dl (12.0-15.5); MEAN CORPUSCULAR HEMOGLOBIN 25.3 pg (27.0-33.0); MEAN CORPUSCULAR HGB CONC 28.4 g/dl (32.0-36.5); PLATELET COUNT, AUTOMATED 235 10^3/uL (150-450); RED BLOOD COUNT 3.92 10^6/uL (4.00-5.40); WHITE BLOOD COUNT 7.4 10^3/uL (4.0-10.0)
[2017-12-26] MEDS: RIVAROXABAN 10 MG TAB (XARELTO) PO (09:46)
[2017-12-26 09:59] LABS: ANION GAP 4 MEQ/L (8-16); BLOOD UREA NITROGEN 10 MG/DL (7-18); CALCIUM LEVEL 8.8 MG/DL (8.5-10.1); CARBON DIOXIDE LEVEL 37 MEQ/L (21-32); CHLORIDE LEVEL 103 MEQ/L (98-107); CREATININE FOR GFR 0.84 MG/DL (0.55-1.30); GLOMERULAR FILTRATION RATE > 60.0 (>51); GLUCOSE, FASTING 109 MG/DL (70-100); POTASSIUM SERUM 3.5 MEQ/L (3.5-5.1); SODIUM LEVEL 144 MEQ/L (136-145)
[2017-12-26] MEDS: SIMVASTATIN 20 MG TAB PO (20:47)
[2017-12-26] MEDS: ONDANSETRON 4 MG TAB (S0181) PO (23:25)
[2017-12-27] MEDS: traZODone 50 MG TAB PO ×2 (01:18→20:36)
[2017-12-27] MEDS: PERCOCET 5MG/325MG TAB PO ×4 (03:23→19:03)
[2017-12-27 06:55] LABS: HEMATOCRIT 32.3 % (36.0-47.0); HEMOGLOBIN 9.4 g/dl (12.0-15.5); MEAN CORPUSCULAR HEMOGLOBIN 25.7 pg (27.0-33.0); MEAN CORPUSCULAR HGB CONC 29.1 g/dl (32.0-36.5); MEAN CORPUSCULAR VOLUME 88.3 fl (80.0-96.0); PLATELET COUNT, AUTOMATED 209 10^3/uL (150-450); RED BLOOD COUNT 3.66 10^6/uL (4.00-5.40); RED CELL DISTRIBUTION WIDTH 15.8 % (11.5-14.5); WHITE BLOOD COUNT 6.8 10^3/uL (4.0-10.0)
[2017-12-27] MEDS: FORMOTEROL FUMARATE 20 MCG/2 ML INHALATION SOLUTION (PERFOROMIST) INH ×2 (07:09→21:14)
[2017-12-27 07:21] LABS: ANION GAP 4 MEQ/L (8-16); BLOOD UREA NITROGEN 8 MG/DL (7-18); CALCIUM LEVEL 8.9 MG/DL (8.5-10.1); CARBON DIOXIDE LEVEL 40 MEQ/L (21-32); CHLORIDE LEVEL 97 MEQ/L (98-107); CREATININE FOR GFR 0.81 MG/DL (0.55-1.30); GLOMERULAR FILTRATION RATE > 60.0 (>51); GLUCOSE, FASTING 81 MG/DL (70-100); SODIUM LEVEL 141 MEQ/L (136-145)
[2017-12-27] MEDS: ASPIRIN 81 MG ENTERIC TAB PO (09:00)
[2017-12-27] MEDS: FAMOTIDINE 20 MG TAB PO (09:18)
[2017-12-27] MEDS: ESCITALOPRAM OXALATE 10 MG TAB (LEXAPRO) PO (09:19)
[2017-12-27] MEDS: FOLIC ACID 1 MG TAB PO (09:19)
[2017-12-27] MEDS: NITROFURANTOIN (MACROBID) 100 MG CAP PO ×2 (09:19→20:37)
[2017-12-27] MEDS: OMEPRAZOLE 20 MG CAP PO ×2 (09:19→20:37)
[2017-12-27] MEDS: RIVAROXABAN 10 MG TAB (XARELTO) PO (09:19)
[2017-12-27] MEDS: ALPRAZolam 0.5 MG TAB PO ×2 (09:19→20:36)
[2017-12-27] MEDS: POTASSIUM CHLORIDE 10 MEQ SR TABLET PO ×2 (09:20→11:52)
[2017-12-27] MEDS: VITAMIN D 1,000 INTERNATIONAL UNITS TABLET PO (09:20)
[2017-12-27] MEDS: SIMVASTATIN 20 MG TAB PO (20:37)
[2017-12-28] MEDS: PERCOCET 5MG/325MG TAB PO ×5 (01:27→22:14)
[2017-12-28] MEDS: IPRATROPIUM 0.5MG/ALBUTEROL 2.5MG INH SOL UD 3ML (DUONEB)(J7620) INH ×2 (01:27→18:15)
[2017-12-28 07:36] LABS: HEMATOCRIT 31.2 % (36.0-47.0); HEMOGLOBIN 9.1 g/dl (12.0-15.5); MEAN CORPUSCULAR HEMOGLOBIN 25.3 pg (27.0-33.0); MEAN CORPUSCULAR HGB CONC 29.2 g/dl (32.0-36.5); MEAN CORPUSCULAR VOLUME 86.9 fl (80.0-96.0); PLATELET COUNT, AUTOMATED 210 10^3/uL (150-450); RED BLOOD COUNT 3.59 10^6/uL (4.00-5.40); RED CELL DISTRIBUTION WIDTH 15.9 % (11.5-14.5); WHITE BLOOD COUNT 6.2 10^3/uL (4.0-10.0)
[2017-12-28] MEDS: FORMOTEROL FUMARATE 20 MCG/2 ML INHALATION SOLUTION (PERFOROMIST) INH ×2 (07:40→20:34)
[2017-12-28 07:45] LABS: ANION GAP 5 MEQ/L (8-16); BLOOD UREA NITROGEN 8 MG/DL (7-18); CALCIUM LEVEL 8.5 MG/DL (8.5-10.1); CARBON DIOXIDE LEVEL 35 MEQ/L (21-32); CHLORIDE LEVEL 100 MEQ/L (98-107); CREATININE FOR GFR 0.85 MG/DL (0.55-1.30); GLOMERULAR FILTRATION RATE > 60.0 (>51); GLUCOSE, FASTING 91 MG/DL (70-100); POTASSIUM SERUM 3.9 MEQ/L (3.5-5.1); SODIUM LEVEL 140 MEQ/L (136-145)
[2017-12-28] MEDS: ESCITALOPRAM OXALATE 10 MG TAB (LEXAPRO) PO (09:00)
[2017-12-28] MEDS: NITROFURANTOIN (MACROBID) 100 MG CAP PO ×2 (09:00→20:00)
[2017-12-28] MEDS: OMEPRAZOLE 20 MG CAP PO ×2 (09:34→20:00)
[2017-12-28] MEDS: FOLIC ACID 1 MG TAB PO (09:34)
[2017-12-28] MEDS: VITAMIN D 1,000 INTERNATIONAL UNITS TABLET PO (09:34)
[2017-12-28] MEDS: ASPIRIN 81 MG ENTERIC TAB PO (09:34)
[2017-12-28] MEDS: FAMOTIDINE 20 MG TAB PO (09:34)
[2017-12-28] MEDS: ALPRAZolam 0.5 MG TAB PO ×2 (10:07→20:00)
[2017-12-28] MEDS: CLINDAMYCIN 600 MG/50 ML PREMIX BAG As Ordered (12:26)
[2017-12-28] MEDS ORDERED: MIDAZOLAM INJ 2 MG/2 ML VIAL (J2250) As Ordered (12:37)
[2017-12-28] MEDS ORDERED: PROPOFOL 200 MG/20 ML VIAL As Ordered (12:37)
[2017-12-28] MEDS ORDERED: LIDOCAINE 2% INJ 100 MG/5 ML SDV (FOR ANES.) As Ordered (12:37)
[2017-12-28] MEDS ORDERED: fentaNYL 100 MCG/2 ML INJECTION (J3010) As Ordered (12:37)
[2017-12-28] MEDS: LIDOCAINE 1% SDV INJ 30 ML VIAL As Ordered (12:58)
[2017-12-28] MEDS: BUPIVACAINE HCL 0.25% 30 ML VIAL As Ordered (12:58)
[2017-12-28] MEDS ORDERED: PERCOCET 5MG/325MG TAB PO (13:30)
[2017-12-28] MEDS ORDERED: fentaNYL 100 MCG/2 ML INJECTION (J3010) IV (13:30)
[2017-12-28] MEDS ORDERED: ONDANSETRON 4MG/2ML VIAL (J2405) IV (13:30)
[2017-12-28] MEDS: CLINDAMYCIN 600 MG in APPROPRIATE DILUENT 1 EA IV ×2 (14:11→19:58)
[2017-12-28] MEDS: SIMVASTATIN 20 MG TAB PO (20:00)
[2017-12-28] MEDS: traZODone 50 MG TAB PO (20:00)
[2017-12-29] MEDS: CLINDAMYCIN 600 MG in APPROPRIATE DILUENT 1 EA IV ×4 (01:21→18:43)
[2017-12-29] MEDS: PERCOCET 5MG/325MG TAB PO ×5 (04:04→20:14)
[2017-12-29 06:44] LABS: HEMATOCRIT 30.9 % (36.0-47.0); HEMOGLOBIN 8.9 g/dl (12.0-15.5); MEAN CORPUSCULAR HEMOGLOBIN 25.4 pg (27.0-33.0); MEAN CORPUSCULAR HGB CONC 28.8 g/dl (32.0-36.5); PLATELET COUNT, AUTOMATED 200 10^3/uL (150-450); RED BLOOD COUNT 3.51 10^6/uL (4.00-5.40); RED CELL DISTRIBUTION WIDTH 15.9 % (11.5-14.5); WHITE BLOOD COUNT 6.1 10^3/uL (4.0-10.0)
[2017-12-29 07:08] LABS: ANION GAP 6 MEQ/L (8-16); BLOOD UREA NITROGEN 10 MG/DL (7-18); CALCIUM LEVEL 8.8 MG/DL (8.5-10.1); CARBON DIOXIDE LEVEL 36 MEQ/L (21-32); CHLORIDE LEVEL 100 MEQ/L (98-107); GLOMERULAR FILTRATION RATE > 60.0 (>51); GLUCOSE, FASTING 91 MG/DL (70-100); POTASSIUM SERUM 3.7 MEQ/L (3.5-5.1); SODIUM LEVEL 142 MEQ/L (136-145)
[2017-12-29] MEDS: FORMOTEROL FUMARATE 20 MCG/2 ML INHALATION SOLUTION (PERFOROMIST) INH ×2 (07:33→21:17)
[2017-12-29] MEDS: ALPRAZolam 0.5 MG TAB PO ×2 (08:00→20:13)
[2017-12-29] MEDS: ASPIRIN 81 MG ENTERIC TAB PO (09:58)
[2017-12-29] MEDS: NITROFURANTOIN (MACROBID) 100 MG CAP PO ×2 (09:58→20:12)
[2017-12-29] MEDS: FOLIC ACID 1 MG TAB PO (09:58)
[2017-12-29] MEDS: FAMOTIDINE 20 MG TAB PO (09:59)
[2017-12-29] MEDS: OMEPRAZOLE 20 MG CAP PO ×2 (09:59→20:13)
[2017-12-29] MEDS: VITAMIN D 1,000 INTERNATIONAL UNITS TABLET PO (09:59)
[2017-12-29] MEDS: ESCITALOPRAM OXALATE 10 MG TAB (LEXAPRO) PO (09:59)
[2017-12-29] MEDS: IPRATROPIUM 0.5MG/ALBUTEROL 2.5MG INH SOL UD 3ML (DUONEB)(J7620) INH (17:57)
[2017-12-29] MEDS: ONDANSETRON 4 MG TAB (S0181) PO (18:43)
[2017-12-29] MEDS: traZODone 50 MG TAB PO (20:13)
[2017-12-29] MEDS: SIMVASTATIN 20 MG TAB PO (20:13)
[2017-12-30] MEDS: CLINDAMYCIN 600 MG in APPROPRIATE DILUENT 1 EA IV ×4 (02:23→20:12)
[2017-12-30] MEDS: PERCOCET 5MG/325MG TAB PO ×5 (02:25→21:53)
[2017-12-30 06:56] LABS: HEMOGLOBIN 8.9 g/dl (12.0-15.5); MEAN CORPUSCULAR HGB CONC 28.7 g/dl (32.0-36.5); MEAN CORPUSCULAR VOLUME 87.1 fl (80.0-96.0); PLATELET COUNT, AUTOMATED 203 10^3/uL (150-450); RED BLOOD COUNT 3.56 10^6/uL (4.00-5.40); RED CELL DISTRIBUTION WIDTH 15.9 % (11.5-14.5); WHITE BLOOD COUNT 5.6 10^3/uL (4.0-10.0)
[2017-12-30 07:15] LABS: ANION GAP 6 MEQ/L (8-16); BLOOD UREA NITROGEN 9 MG/DL (7-18); CALCIUM LEVEL 8.8 MG/DL (8.5-10.1); CARBON DIOXIDE LEVEL 33 MEQ/L (21-32); CHLORIDE LEVEL 101 MEQ/L (98-107); CREATININE FOR GFR 0.81 MG/DL (0.55-1.30); GLOMERULAR FILTRATION RATE > 60.0 (>51); GLUCOSE, FASTING 92 MG/DL (70-100); POTASSIUM SERUM 3.6 MEQ/L (3.5-5.1); SODIUM LEVEL 140 MEQ/L (136-145)
[2017-12-30] MEDS: FORMOTEROL FUMARATE 20 MCG/2 ML INHALATION SOLUTION (PERFOROMIST) INH ×2 (07:25→21:34)
[2017-12-30] MEDS: NITROFURANTOIN (MACROBID) 100 MG CAP PO (08:36)
[2017-12-30] MEDS: FAMOTIDINE 20 MG TAB PO (08:36)
[2017-12-30] MEDS: OMEPRAZOLE 20 MG CAP PO ×2 (08:36→20:12)
[2017-12-30] MEDS: VITAMIN D 1,000 INTERNATIONAL UNITS TABLET PO (08:36)
[2017-12-30] MEDS: ASPIRIN 81 MG ENTERIC TAB PO (08:37)
[2017-12-30] MEDS: ALPRAZolam 0.5 MG TAB PO ×2 (08:37→20:12)
[2017-12-30] MEDS: FOLIC ACID 1 MG TAB PO (08:37)
[2017-12-30] MEDS: ESCITALOPRAM OXALATE 10 MG TAB (LEXAPRO) PO (08:37)
[2017-12-30] MEDS: TORSEMIDE 20 MG TAB PO (13:16)
[2017-12-30] MEDS: SPIRONOLACTONE 50 MG TAB PO ×2 (13:16→17:27)
[2017-12-30] MEDS: RIVAROXABAN 10 MG TAB (XARELTO) PO (17:27)
[2017-12-30] MEDS: traZODone 50 MG TAB PO (20:12)
[2017-12-30] MEDS: SIMVASTATIN 20 MG TAB PO (20:12)
[2017-12-30] MEDS: ONDANSETRON 4 MG TAB (S0181) PO (20:12)
[2017-12-30] MEDS: IPRATROPIUM 0.5MG/ALBUTEROL 2.5MG INH SOL UD 3ML (DUONEB)(J7620) INH (21:34)
[2017-12-31] MEDS: CLINDAMYCIN 600 MG in APPROPRIATE DILUENT 1 EA IV ×4 (02:18→20:49)
[2017-12-31] MEDS: PERCOCET 5MG/325MG TAB PO ×4 (02:19→19:07)
[2017-12-31 07:42] LABS: HEMATOCRIT 30.6 % (36.0-47.0); HEMOGLOBIN 8.9 g/dl (12.0-15.5); MEAN CORPUSCULAR HEMOGLOBIN 25.1 pg (27.0-33.0); MEAN CORPUSCULAR HGB CONC 29.1 g/dl (32.0-36.5); MEAN CORPUSCULAR VOLUME 86.4 fl (80.0-96.0); PLATELET COUNT, AUTOMATED 214 10^3/uL (150-450); RED BLOOD COUNT 3.54 10^6/uL (4.00-5.40); RED CELL DISTRIBUTION WIDTH 15.9 % (11.5-14.5); WHITE BLOOD COUNT 5.8 10^3/uL (4.0-10.0)
[2017-12-31] MEDS: FORMOTEROL FUMARATE 20 MCG/2 ML INHALATION SOLUTION (PERFOROMIST) INH ×2 (07:53→19:29)
[2017-12-31] MEDS: SPIRONOLACTONE 50 MG TAB PO ×2 (08:03→19:06)
[2017-12-31] MEDS: ESCITALOPRAM OXALATE 10 MG TAB (LEXAPRO) PO (08:04)
[2017-12-31] MEDS: OMEPRAZOLE 20 MG CAP PO ×2 (08:04→20:49)
[2017-12-31] MEDS: TORSEMIDE 20 MG TAB PO (08:04)
[2017-12-31] MEDS: VITAMIN D 1,000 INTERNATIONAL UNITS TABLET PO (08:04)
[2017-12-31] MEDS: ALPRAZolam 0.5 MG TAB PO ×2 (08:04→20:50)
[2017-12-31] MEDS: ASPIRIN 81 MG ENTERIC TAB PO (08:07)
[2017-12-31] MEDS: FOLIC ACID 1 MG TAB PO (08:07)
[2017-12-31] MEDS: FAMOTIDINE 20 MG TAB PO (08:07)
[2017-12-31 08:11] LABS: ANION GAP 5 MEQ/L (8-16); BLOOD UREA NITROGEN 10 MG/DL (7-18); CALCIUM LEVEL 8.5 MG/DL (8.5-10.1); CARBON DIOXIDE LEVEL 35 MEQ/L (21-32); CHLORIDE LEVEL 100 MEQ/L (98-107); CREATININE FOR GFR 0.86 MG/DL (0.55-1.30); GLOMERULAR FILTRATION RATE > 60.0 (>51); GLUCOSE, FASTING 81 MG/DL (70-100); POTASSIUM SERUM 3.7 MEQ/L (3.5-5.1); SODIUM LEVEL 140 MEQ/L (136-145)
[2017-12-31] MEDS: IPRATROPIUM 0.5MG/ALBUTEROL 2.5MG INH SOL UD 3ML (DUONEB)(J7620) INH ×2 (12:04→15:10)
[2017-12-31] MEDS: RIVAROXABAN 10 MG TAB (XARELTO) PO (19:06)
[2017-12-31] MEDS: traZODone 50 MG TAB PO (20:49)
[2017-12-31] MEDS: SIMVASTATIN 20 MG TAB PO (20:49)
[2018-01-01] MEDS: PERCOCET 5MG/325MG TAB PO ×4 (00:15→18:11)
[2018-01-01] MEDS: IPRATROPIUM 0.5MG/ALBUTEROL 2.5MG INH SOL UD 3ML (DUONEB)(J7620) INH ×2 (00:34→03:50)
[2018-01-01] MEDS: CLINDAMYCIN 600 MG in APPROPRIATE DILUENT 1 EA IV ×4 (02:31→20:40)
[2018-01-01 07:25] LABS: ANION GAP 7 MEQ/L (8-16); BLOOD UREA NITROGEN 9 MG/DL (7-18); CALCIUM LEVEL 8.5 MG/DL (8.5-10.1); CARBON DIOXIDE LEVEL 35 MEQ/L (21-32); CHLORIDE LEVEL 99 MEQ/L (98-107); CREATININE FOR GFR 0.96 MG/DL (0.55-1.30); GLOMERULAR FILTRATION RATE > 60.0 (>51); GLUCOSE, FASTING 82 MG/DL (70-100); POTASSIUM SERUM 3.5 MEQ/L (3.5-5.1); SODIUM LEVEL 141 MEQ/L (136-145)
[2018-01-01] MEDS: FORMOTEROL FUMARATE 20 MCG/2 ML INHALATION SOLUTION (PERFOROMIST) INH ×2 (07:50→21:56)
[2018-01-01] MEDS: ALPRAZolam 0.5 MG TAB PO ×2 (07:53→20:36)
[2018-01-01] MEDS: TORSEMIDE 20 MG TAB PO (07:54)
[2018-01-01] MEDS: VITAMIN D 1,000 INTERNATIONAL UNITS TABLET PO (07:54)
[2018-01-01] MEDS: OMEPRAZOLE 20 MG CAP PO ×2 (07:54→20:35)
[2018-01-01] MEDS: SPIRONOLACTONE 50 MG TAB PO (07:55)
[2018-01-01] MEDS: ASPIRIN 81 MG ENTERIC TAB PO (07:55)
[2018-01-01] MEDS: FOLIC ACID 1 MG TAB PO (07:55)
[2018-01-01] MEDS: ESCITALOPRAM OXALATE 10 MG TAB (LEXAPRO) PO (07:55)
[2018-01-01] MEDS: FAMOTIDINE 20 MG TAB PO (07:55)
[2018-01-01 09:24] LABS: HEMATOCRIT 28.8 % (36.0-47.0); HEMOGLOBIN 8.6 g/dl (12.0-15.5); MEAN CORPUSCULAR HEMOGLOBIN 25.4 pg (27.0-33.0); MEAN CORPUSCULAR HGB CONC 29.9 g/dl (32.0-36.5); MEAN CORPUSCULAR VOLUME 85.2 fl (80.0-96.0); PLATELET COUNT, AUTOMATED 232 10^3/uL (150-450); RED BLOOD COUNT 3.38 10^6/uL (4.00-5.40); RED CELL DISTRIBUTION WIDTH 16.2 % (11.5-14.5); WHITE BLOOD COUNT 5.1 10^3/uL (4.0-10.0)
[2018-01-01] MEDS: FOSFOMYCIN TROMETHAMINE 3 GM POWDER PACKET (MONUROL) PO (11:30)
[2018-01-01] MEDS: NS 500 ML IV (15:00)
[2018-01-01] MEDS: RIVAROXABAN 10 MG TAB (XARELTO) PO (18:10)
[2018-01-01] MEDS: SIMVASTATIN 20 MG TAB PO (20:35)
[2018-01-01] MEDS: traZODone 50 MG TAB PO (21:48)
[2018-01-02] MEDS: IPRATROPIUM 0.5MG/ALBUTEROL 2.5MG INH SOL UD 3ML (DUONEB)(J7620) INH ×3 (00:28→18:59)
[2018-01-02] MEDS: PERCOCET 5MG/325MG TAB PO ×5 (01:27→20:14)
[2018-01-02] MEDS: CLINDAMYCIN 600 MG in APPROPRIATE DILUENT 1 EA IV ×3 (01:28→14:11)
[2018-01-02 07:00] LABS: ANION GAP 7 MEQ/L (8-16); BLOOD UREA NITROGEN 8 MG/DL (7-18); C REACTIVE PROTEIN QUANTITATIV 3.45 MG/DL (0.00-0.30); CALCIUM LEVEL 8.3 MG/DL (8.5-10.1); CARBON DIOXIDE LEVEL 34 MEQ/L (21-32); CHLORIDE LEVEL 102 MEQ/L (98-107); CREATININE FOR GFR 0.84 MG/DL (0.55-1.30); GLOMERULAR FILTRATION RATE > 60.0 (>51); GLUCOSE, FASTING 80 MG/DL (70-100); POTASSIUM SERUM 3.4 MEQ/L (3.5-5.1); SODIUM LEVEL 143 MEQ/L (136-145)
[2018-01-02 07:01] LABS: HEMATOCRIT 28.9 % (36.0-47.0); HEMOGLOBIN 8.4 g/dl (12.0-15.5); MEAN CORPUSCULAR HEMOGLOBIN 25.5 pg (27.0-33.0); MEAN CORPUSCULAR HGB CONC 29.1 g/dl (32.0-36.5); MEAN CORPUSCULAR VOLUME 87.6 fl (80.0-96.0); PLATELET COUNT, AUTOMATED 251 10^3/uL (150-450); RED CELL DISTRIBUTION WIDTH 16.2 % (11.5-14.5); WHITE BLOOD COUNT 5.1 10^3/uL (4.0-10.0)
[2018-01-02] MEDS: FORMOTEROL FUMARATE 20 MCG/2 ML INHALATION SOLUTION (PERFOROMIST) INH ×2 (08:00→20:00)
[2018-01-02] MEDS: OMEPRAZOLE 20 MG CAP PO ×2 (09:10→20:13)
[2018-01-02] MEDS: VITAMIN D 1,000 INTERNATIONAL UNITS TABLET PO (09:10)
[2018-01-02] MEDS: ASPIRIN 81 MG ENTERIC TAB PO (09:10)
[2018-01-02] MEDS: ALPRAZolam 0.5 MG TAB PO ×2 (09:10→22:21)
[2018-01-02] MEDS: POTASSIUM CHLORIDE 10 MEQ SR TABLET PO (09:10)
[2018-01-02] MEDS: TORSEMIDE 20 MG TAB PO (09:11)
[2018-01-02] MEDS: FOLIC ACID 1 MG TAB PO (09:11)
[2018-01-02] MEDS: ESCITALOPRAM OXALATE 10 MG TAB (LEXAPRO) PO (09:11)
[2018-01-02] MEDS: FAMOTIDINE 20 MG TAB PO (09:11)
[2018-01-02] MEDS: SPIRONOLACTONE 50 MG TAB PO ×2 (09:16→18:01)
[2018-01-02] MEDS: ONDANSETRON 4 MG TAB (S0181) PO (15:46)
[2018-01-02] MEDS: RIVAROXABAN 10 MG TAB (XARELTO) PO (18:01)
[2018-01-02] MEDS: SIMVASTATIN 20 MG TAB PO (20:14)
[2018-01-02] MEDS: traZODone 50 MG TAB PO (22:21)
[2018-01-03] MEDS: PERCOCET 5MG/325MG TAB PO ×4 (04:35→21:24)
[2018-01-03] MEDS: IPRATROPIUM 0.5MG/ALBUTEROL 2.5MG INH SOL UD 3ML (DUONEB)(J7620) INH ×2 (04:55→23:27)
[2018-01-03 08:07] LABS: HEMOGLOBIN 8.7 g/dl (12.0-15.5); MEAN CORPUSCULAR HEMOGLOBIN 25.4 pg (27.0-33.0); MEAN CORPUSCULAR VOLUME 87.7 fl (80.0-96.0); PLATELET COUNT, AUTOMATED 283 10^3/uL (150-450); RED BLOOD COUNT 3.42 10^6/uL (4.00-5.40); RED CELL DISTRIBUTION WIDTH 16.5 % (11.5-14.5); WHITE BLOOD COUNT 4.2 10^3/uL (4.0-10.0)
[2018-01-03] MEDS: FORMOTEROL FUMARATE 20 MCG/2 ML INHALATION SOLUTION (PERFOROMIST) INH ×2 (08:31→20:33)
[2018-01-03 08:34] LABS: ANION GAP 4 MEQ/L (8-16); BLOOD UREA NITROGEN 7 MG/DL (7-18); CALCIUM LEVEL 8.3 MG/DL (8.5-10.1); CARBON DIOXIDE LEVEL 36 MEQ/L (21-32); CHLORIDE LEVEL 102 MEQ/L (98-107); CREATININE FOR GFR 0.93 MG/DL (0.55-1.30); GLOMERULAR FILTRATION RATE > 60.0 (>51); GLUCOSE, FASTING 89 MG/DL (70-100); POTASSIUM SERUM 3.9 MEQ/L (3.5-5.1); SODIUM LEVEL 142 MEQ/L (136-145)
[2018-01-03] MEDS: SPIRONOLACTONE 25 MG TAB PO ×2 (09:00→16:08)
[2018-01-03] MEDS: FAMOTIDINE 20 MG TAB PO (09:42)
[2018-01-03] MEDS: ASPIRIN 81 MG ENTERIC TAB PO (09:42)
[2018-01-03] MEDS: ESCITALOPRAM OXALATE 10 MG TAB (LEXAPRO) PO (09:42)
[2018-01-03] MEDS: FOLIC ACID 1 MG TAB PO (09:42)
[2018-01-03] MEDS: ALPRAZolam 0.5 MG TAB PO ×2 (09:43→22:15)
[2018-01-03] MEDS: OMEPRAZOLE 20 MG CAP PO ×2 (09:43→21:24)
[2018-01-03] MEDS: VITAMIN D 1,000 INTERNATIONAL UNITS TABLET PO (09:43)
[2018-01-03] MEDS: ONDANSETRON 4 MG TAB (S0181) PO ×2 (10:31→16:01)
[2018-01-03] MEDS ORDERED: traMADol 50 MG TAB PO ×2 (10:45)
[2018-01-03 13:56] LABS: HEMATOCRIT 28.9 % (36.0-47.0); HEMOGLOBIN 8.5 g/dl (12.0-15.5)
[2018-01-03] MEDS ORDERED: SODIUM CHLORIDE 0.9% INJ 10 ML SYR IV (16:30)
[2018-01-03] MEDS: RIVAROXABAN 10 MG TAB (XARELTO) PO (17:40)
[2018-01-03] MEDS: SODIUM CHLORIDE 0.9% INJ 10 ML SYR IV (18:00)
[2018-01-03] MEDS: FUROSEMIDE 40 MG/4 ML VIAL (J1940) IV (18:51)
[2018-01-03 21:12] LABS: IMMEDIATE SPIN CROSSMATCH 1 2
[2018-01-03] MEDS: SIMVASTATIN 20 MG TAB PO (21:23)
[2018-01-03] MEDS: traZODone 50 MG TAB PO (22:15)
[2018-01-04] MEDS: IPRATROPIUM 0.5MG/ALBUTEROL 2.5MG INH SOL UD 3ML (DUONEB)(J7620) INH ×3 (02:46→23:28)
[2018-01-04] MEDS: PERCOCET 5MG/325MG TAB PO ×4 (03:02→20:33)
[2018-01-04] MEDS: SODIUM CHLORIDE 0.9% INJ 10 ML SYR IV ×2 (05:33→18:17)
[2018-01-04 05:45] LABS: HEMATOCRIT 32.5 % (36.0-47.0); HEMOGLOBIN 9.8 g/dl (12.0-15.5); MEAN CORPUSCULAR HEMOGLOBIN 26.5 pg (27.0-33.0); MEAN CORPUSCULAR HGB CONC 30.2 g/dl (32.0-36.5); MEAN CORPUSCULAR VOLUME 87.8 fl (80.0-96.0); PLATELET COUNT, AUTOMATED 279 10^3/uL (150-450)
[2018-01-04 06:15] LABS: ANION GAP 6 MEQ/L (8-16); BLOOD UREA NITROGEN 8 MG/DL (7-18); CALCIUM LEVEL 8.4 MG/DL (8.5-10.1); CARBON DIOXIDE LEVEL 35 MEQ/L (21-32); CHLORIDE LEVEL 102 MEQ/L (98-107); CREATININE FOR GFR 0.85 MG/DL (0.55-1.30); GLOMERULAR FILTRATION RATE > 60.0 (>51); GLUCOSE, FASTING 84 MG/DL (70-100); POTASSIUM SERUM 3.6 MEQ/L (3.5-5.1); SODIUM LEVEL 143 MEQ/L (136-145)
[2018-01-04] MEDS: FORMOTEROL FUMARATE 20 MCG/2 ML INHALATION SOLUTION (PERFOROMIST) INH ×2 (07:24→18:25)
[2018-01-04] MEDS: FAMOTIDINE 20 MG TAB PO (08:16)
[2018-01-04] MEDS: FOLIC ACID 1 MG TAB PO (08:16)
[2018-01-04] MEDS: ALPRAZolam 0.5 MG TAB PO ×2 (08:16→21:33)
[2018-01-04] MEDS: OMEPRAZOLE 20 MG CAP PO ×2 (08:16→20:33)
[2018-01-04] MEDS: VITAMIN D 1,000 INTERNATIONAL UNITS TABLET PO (08:16)
[2018-01-04] MEDS: ASPIRIN 81 MG ENTERIC TAB PO (08:16)
[2018-01-04] MEDS: ESCITALOPRAM OXALATE 10 MG TAB (LEXAPRO) PO (08:17)
[2018-01-04] MEDS: SPIRONOLACTONE 25 MG TAB PO ×2 (09:00→17:00)
[2018-01-04] MEDS: NS 500 ML IV (13:40)
[2018-01-04 13:51] LABS: HEMATOCRIT 33.8 % (36.0-47.0); HEMOGLOBIN 10.3 g/dl (12.0-15.5)
[2018-01-04 13:52] LABS: RETIC HEMOGLOBIN EQUIVALENT 26.7 pg (24-36); RETICULOCYTE # 37.7 10^9/L (17-77)
[2018-01-04 14:20] LABS: FERRITIN 44 NG/ML (8-252); IRON (FE) 94 UG/DL (50-170); PERCENT SATURATION 31.3 % (13.2-45.0); TOTAL IRON BINDING CAPACITY 300 UG/DL (250-450)
[2018-01-04 14:24] LABS: FOLATE > 24.0 NG/ML (>5.4); VITAMIN B12 LEVEL 620 PG/ML (247-911)
[2018-01-04] MEDS: RIVAROXABAN 10 MG TAB (XARELTO) PO (18:17)
[2018-01-04] MEDS: SIMVASTATIN 20 MG TAB PO (20:33)
[2018-01-04] MEDS: traZODone 50 MG TAB PO (21:33)
[2018-01-05] MEDS: PERCOCET 5MG/325MG TAB PO ×5 (05:43→22:28)
[2018-01-05] MEDS: SODIUM CHLORIDE 0.9% INJ 10 ML SYR IV ×2 (05:43→18:27)
[2018-01-05 06:00] LABS: HEMATOCRIT 32.9 % (36.0-47.0); HEMOGLOBIN 9.9 g/dl (12.0-15.5); MEAN CORPUSCULAR HEMOGLOBIN 26.5 pg (27.0-33.0); MEAN CORPUSCULAR HGB CONC 30.1 g/dl (32.0-36.5); PLATELET COUNT, AUTOMATED 286 10^3/uL (150-450); RED BLOOD COUNT 3.74 10^6/uL (4.00-5.40); RED CELL DISTRIBUTION WIDTH 16.4 % (11.5-14.5); WHITE BLOOD COUNT 6.3 10^3/uL (4.0-10.0)
[2018-01-05 06:34] LABS: ANION GAP 4 MEQ/L (8-16); BLOOD UREA NITROGEN 8 MG/DL (7-18); CALCIUM LEVEL 8.5 MG/DL (8.5-10.1); CARBON DIOXIDE LEVEL 36 MEQ/L (21-32); CHLORIDE LEVEL 102 MEQ/L (98-107); CREATININE FOR GFR 0.77 MG/DL (0.55-1.30); GLOMERULAR FILTRATION RATE > 60.0 (>51); GLUCOSE, FASTING 82 MG/DL (70-100); POTASSIUM SERUM 3.6 MEQ/L (3.5-5.1); SODIUM LEVEL 142 MEQ/L (136-145)
[2018-01-05] MEDS: FORMOTEROL FUMARATE 20 MCG/2 ML INHALATION SOLUTION (PERFOROMIST) INH ×2 (07:07→20:54)
[2018-01-05 08:05] LABS: TRANSFERRIN 232 mg/dL (200-370)
[2018-01-05] MEDS: FOLIC ACID 1 MG TAB PO (08:19)
[2018-01-05] MEDS: ASPIRIN 81 MG ENTERIC TAB PO (08:19)
[2018-01-05] MEDS: FAMOTIDINE 20 MG TAB PO (08:19)
[2018-01-05] MEDS: OMEPRAZOLE 20 MG CAP PO ×2 (08:19→22:04)
[2018-01-05] MEDS: VITAMIN D 1,000 INTERNATIONAL UNITS TABLET PO (08:19)
[2018-01-05] MEDS: ESCITALOPRAM OXALATE 10 MG TAB (LEXAPRO) PO (08:19)
[2018-01-05] MEDS: ALPRAZolam 0.5 MG TAB PO ×2 (08:19→22:04)
[2018-01-05] MEDS: ONDANSETRON 4 MG TAB (S0181) PO (12:23)
[2018-01-05] MEDS: IPRATROPIUM 0.5MG/ALBUTEROL 2.5MG INH SOL UD 3ML (DUONEB)(J7620) INH (12:38)
[2018-01-05] MEDS: RIVAROXABAN 10 MG TAB (XARELTO) PO (18:28)
[2018-01-05] MEDS: traZODone 50 MG TAB PO (22:03)
[2018-01-05] MEDS: SIMVASTATIN 20 MG TAB PO (22:04)
[2018-01-06] MEDS: PERCOCET 5MG/325MG TAB PO ×5 (04:52→21:32)
[2018-01-06] MEDS: SODIUM CHLORIDE 0.9% INJ 10 ML SYR IV ×2 (05:14→17:17)
[2018-01-06 05:18] LABS: HEMATOCRIT 33.9 % (36.0-47.0); HEMOGLOBIN 10.1 g/dl (12.0-15.5); MEAN CORPUSCULAR HEMOGLOBIN 26.6 pg (27.0-33.0); MEAN CORPUSCULAR HGB CONC 29.8 g/dl (32.0-36.5); MEAN CORPUSCULAR VOLUME 89.2 fl (80.0-96.0); PLATELET COUNT, AUTOMATED 300 10^3/uL (150-450); RED CELL DISTRIBUTION WIDTH 16.6 % (11.5-14.5); WHITE BLOOD COUNT 4.6 10^3/uL (4.0-10.0)
[2018-01-06] MEDS: IPRATROPIUM 0.5MG/ALBUTEROL 2.5MG INH SOL UD 3ML (DUONEB)(J7620) INH ×4 (05:23→23:02)
[2018-01-06 05:41] LABS: ANION GAP 4 MEQ/L (8-16); BLOOD UREA NITROGEN 9 MG/DL (7-18); CALCIUM LEVEL 8.5 MG/DL (8.5-10.1); CARBON DIOXIDE LEVEL 36 MEQ/L (21-32); CHLORIDE LEVEL 102 MEQ/L (98-107); CREATININE FOR GFR 0.71 MG/DL (0.55-1.30); GLOMERULAR FILTRATION RATE > 60.0 (>51); GLUCOSE, FASTING 81 MG/DL (70-100); POTASSIUM SERUM 3.8 MEQ/L (3.5-5.1); SODIUM LEVEL 142 MEQ/L (136-145)
[2018-01-06] MEDS: FORMOTEROL FUMARATE 20 MCG/2 ML INHALATION SOLUTION (PERFOROMIST) INH ×2 (07:22→20:37)
[2018-01-06] MEDS: OMEPRAZOLE 20 MG CAP PO ×2 (08:32→21:36)
[2018-01-06] MEDS: FAMOTIDINE 20 MG TAB PO (08:33)
[2018-01-06] MEDS: ESCITALOPRAM OXALATE 10 MG TAB (LEXAPRO) PO (08:33)
[2018-01-06] MEDS: VITAMIN D 1,000 INTERNATIONAL UNITS TABLET PO (08:33)
[2018-01-06] MEDS: ALPRAZolam 0.5 MG TAB PO ×2 (08:33→21:32)
[2018-01-06] MEDS: ASPIRIN 81 MG ENTERIC TAB PO (08:33)
[2018-01-06] MEDS: FOLIC ACID 1 MG TAB PO (08:33)
[2018-01-06] MEDS: RIVAROXABAN 10 MG TAB (XARELTO) PO (17:17)
[2018-01-06] MEDS: SPIRONOLACTONE 25 MG TAB PO (18:14)
[2018-01-06] MEDS: traZODone 50 MG TAB PO (21:30)
[2018-01-06] MEDS: SIMVASTATIN 20 MG TAB PO (21:32)
[2018-01-07] MEDS: IPRATROPIUM 0.5MG/ALBUTEROL 2.5MG INH SOL UD 3ML (DUONEB)(J7620) INH ×4 (03:10→23:38)
[2018-01-07] MEDS: PERCOCET 5MG/325MG TAB PO ×5 (03:26→22:14)
[2018-01-07] MEDS: SODIUM CHLORIDE 0.9% INJ 10 ML SYR IV ×2 (05:15→17:06)
[2018-01-07 05:23] LABS: HEMATOCRIT 31.9 % (36.0-47.0); HEMOGLOBIN 9.5 g/dl (12.0-15.5); MEAN CORPUSCULAR HEMOGLOBIN 26.3 pg (27.0-33.0); MEAN CORPUSCULAR HGB CONC 29.8 g/dl (32.0-36.5); MEAN CORPUSCULAR VOLUME 88.4 fl (80.0-96.0); PLATELET COUNT, AUTOMATED 306 10^3/uL (150-450); RED BLOOD COUNT 3.61 10^6/uL (4.00-5.40); RED CELL DISTRIBUTION WIDTH 16.7 % (11.5-14.5); WHITE BLOOD COUNT 5.7 10^3/uL (4.0-10.0)
[2018-01-07 05:42] LABS: ANION GAP 4 MEQ/L (8-16); BLOOD UREA NITROGEN 12 MG/DL (7-18); CALCIUM LEVEL 8.6 MG/DL (8.5-10.1); CARBON DIOXIDE LEVEL 37 MEQ/L (21-32); CHLORIDE LEVEL 103 MEQ/L (98-107); CREATININE FOR GFR 0.82 MG/DL (0.55-1.30); GLOMERULAR FILTRATION RATE > 60.0 (>51); GLUCOSE, FASTING 87 MG/DL (70-100); POTASSIUM SERUM 4.2 MEQ/L (3.5-5.1); SODIUM LEVEL 144 MEQ/L (136-145)
[2018-01-07] MEDS: FORMOTEROL FUMARATE 20 MCG/2 ML INHALATION SOLUTION (PERFOROMIST) INH ×2 (07:22→20:01)
[2018-01-07] MEDS: VITAMIN D 1,000 INTERNATIONAL UNITS TABLET PO (08:38)
[2018-01-07] MEDS: FAMOTIDINE 20 MG TAB PO (08:38)
[2018-01-07] MEDS: FOLIC ACID 1 MG TAB PO (08:38)
[2018-01-07] MEDS: OMEPRAZOLE 20 MG CAP PO ×2 (08:39→22:14)
[2018-01-07] MEDS: SPIRONOLACTONE 25 MG TAB PO ×2 (08:39→17:04)
[2018-01-07] MEDS: ALPRAZolam 0.5 MG TAB PO ×2 (08:39→22:14)
[2018-01-07] MEDS: ESCITALOPRAM OXALATE 10 MG TAB (LEXAPRO) PO (08:39)
[2018-01-07] MEDS: ASPIRIN 81 MG ENTERIC TAB PO (08:39)
[2018-01-07] MEDS: ONDANSETRON 4 MG TAB (S0181) PO (17:04)
[2018-01-07] MEDS: RIVAROXABAN 10 MG TAB (XARELTO) PO (17:05)
[2018-01-07] MEDS: NYSTATIN 100,000 UNITS/GM TOPICAL PWD 15 GM TOP (22:14)
[2018-01-07] MEDS: traZODone 50 MG TAB PO (22:14)
[2018-01-07] MEDS: SIMVASTATIN 20 MG TAB PO (22:14)
[2018-01-08] MEDS: IPRATROPIUM 0.5MG/ALBUTEROL 2.5MG INH SOL UD 3ML (DUONEB)(J7620) INH ×3 (03:33→23:23)
[2018-01-08] MEDS: PERCOCET 5MG/325MG TAB PO ×5 (03:45→22:54)
[2018-01-08] MEDS: SODIUM CHLORIDE 0.9% INJ 10 ML SYR IV ×2 (05:26→18:15)
[2018-01-08 05:49] LABS: HEMATOCRIT 31.4 % (36.0-47.0); HEMOGLOBIN 9.3 g/dl (12.0-15.5); MEAN CORPUSCULAR HEMOGLOBIN 26.6 pg (27.0-33.0); MEAN CORPUSCULAR HGB CONC 29.6 g/dl (32.0-36.5); MEAN CORPUSCULAR VOLUME 89.7 fl (80.0-96.0); PLATELET COUNT, AUTOMATED 283 10^3/uL (150-450); RED CELL DISTRIBUTION WIDTH 16.8 % (11.5-14.5); WHITE BLOOD COUNT 5.3 10^3/uL (4.0-10.0)
[2018-01-08 06:36] LABS: ANION GAP 4 MEQ/L (8-16); BLOOD UREA NITROGEN 12 MG/DL (7-18); CALCIUM LEVEL 8.6 MG/DL (8.5-10.1); CARBON DIOXIDE LEVEL 34 MEQ/L (21-32); CHLORIDE LEVEL 104 MEQ/L (98-107); GLOMERULAR FILTRATION RATE > 60.0 (>51); GLUCOSE, FASTING 89 MG/DL (70-100); POTASSIUM SERUM 4.3 MEQ/L (3.5-5.1); SODIUM LEVEL 142 MEQ/L (136-145)
[2018-01-08] MEDS: FORMOTEROL FUMARATE 20 MCG/2 ML INHALATION SOLUTION (PERFOROMIST) INH ×2 (07:40→19:54)
[2018-01-08] MEDS: ASPIRIN 81 MG ENTERIC TAB PO (09:54)
[2018-01-08] MEDS: FOLIC ACID 1 MG TAB PO (09:54)
[2018-01-08] MEDS: ESCITALOPRAM OXALATE 10 MG TAB (LEXAPRO) PO (09:54)
[2018-01-08] MEDS: ALPRAZolam 0.5 MG TAB PO ×2 (09:54→22:16)
[2018-01-08] MEDS: SPIRONOLACTONE 25 MG TAB PO ×2 (09:54→17:25)
[2018-01-08] MEDS: OMEPRAZOLE 20 MG CAP PO ×2 (09:54→22:16)
[2018-01-08] MEDS: VITAMIN D 1,000 INTERNATIONAL UNITS TABLET PO (09:54)
[2018-01-08] MEDS: FAMOTIDINE 20 MG TAB PO (09:55)
[2018-01-08] MEDS: NYSTATIN 100,000 UNITS/GM TOPICAL PWD 15 GM TOP ×2 (09:55→22:17)
[2018-01-08] MEDS: RIVAROXABAN 10 MG TAB (XARELTO) PO (17:25)
[2018-01-08] MEDS: ONDANSETRON 4 MG TAB (S0181) PO (18:34)
[2018-01-08] MEDS: SIMVASTATIN 20 MG TAB PO (22:15)
[2018-01-08] MEDS: traZODone 50 MG TAB PO (22:16)
[2018-01-09] MEDS: IPRATROPIUM 0.5MG/ALBUTEROL 2.5MG INH SOL UD 3ML (DUONEB)(J7620) INH ×4 (03:40→23:37)
[2018-01-09] MEDS: PERCOCET 5MG/325MG TAB PO ×5 (03:58→21:47)
[2018-01-09] MEDS: SODIUM CHLORIDE 0.9% INJ 10 ML SYR IV ×2 (05:22→17:23)
[2018-01-09 05:34] LABS: HEMATOCRIT 31.6 % (36.0-47.0); HEMOGLOBIN 9.3 g/dl (12.0-15.5); MEAN CORPUSCULAR HEMOGLOBIN 26.1 pg (27.0-33.0); MEAN CORPUSCULAR HGB CONC 29.4 g/dl (32.0-36.5); MEAN CORPUSCULAR VOLUME 88.8 fl (80.0-96.0); PLATELET COUNT, AUTOMATED 288 10^3/uL (150-450); RED BLOOD COUNT 3.56 10^6/uL (4.00-5.40); RED CELL DISTRIBUTION WIDTH 16.7 % (11.5-14.5)
[2018-01-09 06:40] LABS: ANION GAP 7 MEQ/L (8-16); BLOOD UREA NITROGEN 12 MG/DL (7-18); CALCIUM LEVEL 8.5 MG/DL (8.5-10.1); CARBON DIOXIDE LEVEL 33 MEQ/L (21-32); CHLORIDE LEVEL 104 MEQ/L (98-107); CREATININE FOR GFR 0.73 MG/DL (0.55-1.30); GLOMERULAR FILTRATION RATE > 60.0 (>51); GLUCOSE, FASTING 86 MG/DL (70-100); POTASSIUM SERUM 4.2 MEQ/L (3.5-5.1); SODIUM LEVEL 144 MEQ/L (136-145)
[2018-01-09] MEDS: FORMOTEROL FUMARATE 20 MCG/2 ML INHALATION SOLUTION (PERFOROMIST) INH ×2 (07:58→19:40)
[2018-01-09] MEDS: FOLIC ACID 1 MG TAB PO (09:02)
[2018-01-09] MEDS: ESCITALOPRAM OXALATE 10 MG TAB (LEXAPRO) PO (09:02)
[2018-01-09] MEDS: OMEPRAZOLE 20 MG CAP PO ×2 (09:02→20:36)
[2018-01-09] MEDS: SPIRONOLACTONE 25 MG TAB PO ×2 (09:02→17:22)
[2018-01-09] MEDS: ASPIRIN 81 MG ENTERIC TAB PO (09:02)
[2018-01-09] MEDS: VITAMIN D 1,000 INTERNATIONAL UNITS TABLET PO (09:03)
[2018-01-09] MEDS: FAMOTIDINE 20 MG TAB PO (09:03)
[2018-01-09] MEDS: NYSTATIN 100,000 UNITS/GM TOPICAL PWD 15 GM TOP ×2 (09:03→20:36)
[2018-01-09] MEDS: ALPRAZolam 0.5 MG TAB PO ×2 (09:03→20:35)
[2018-01-09] MEDS: lamoTRIgine 100MG TAB PO (15:15)
[2018-01-09] MEDS: lamoTRIgine 25 MG TAB PO (15:15)
[2018-01-09] MEDS ORDERED: lamoTRIgine 25 MG TAB PO (15:15)
[2018-01-09] MEDS: TORSEMIDE 20 MG TAB PO (15:16)
[2018-01-09] MEDS: RIVAROXABAN 10 MG TAB (XARELTO) PO (17:22)
[2018-01-09] MEDS: SIMVASTATIN 20 MG TAB PO (20:35)
[2018-01-09] MEDS: ONDANSETRON 4 MG TAB (S0181) PO (20:40)
[2018-01-09] MEDS: traZODone 50 MG TAB PO (21:46)
[2018-01-10] MEDS: IPRATROPIUM 0.5MG/ALBUTEROL 2.5MG INH SOL UD 3ML (DUONEB)(J7620) INH ×3 (03:27→16:56)
[2018-01-10] MEDS: PERCOCET 5MG/325MG TAB PO ×5 (03:38→22:18)
[2018-01-10] MEDS: SODIUM CHLORIDE 0.9% INJ 10 ML SYR IV ×2 (05:16→17:12)
[2018-01-10 05:24] LABS: HEMOGLOBIN 9.4 g/dl (12.0-15.5); MEAN CORPUSCULAR HEMOGLOBIN 26.3 pg (27.0-33.0); MEAN CORPUSCULAR HGB CONC 29.4 g/dl (32.0-36.5); MEAN CORPUSCULAR VOLUME 89.4 fl (80.0-96.0); PLATELET COUNT, AUTOMATED 260 10^3/uL (150-450); RED BLOOD COUNT 3.58 10^6/uL (4.00-5.40); RED CELL DISTRIBUTION WIDTH 16.7 % (11.5-14.5); WHITE BLOOD COUNT 6.6 10^3/uL (4.0-10.0)
[2018-01-10 05:57] LABS: ANION GAP 5 MEQ/L (8-16); BLOOD UREA NITROGEN 12 MG/DL (7-18); CALCIUM LEVEL 8.5 MG/DL (8.5-10.1); CARBON DIOXIDE LEVEL 35 MEQ/L (21-32); CHLORIDE LEVEL 101 MEQ/L (98-107); GLOMERULAR FILTRATION RATE > 60.0 (>51); GLUCOSE, FASTING 95 MG/DL (70-100); POTASSIUM SERUM 3.9 MEQ/L (3.5-5.1); SODIUM LEVEL 141 MEQ/L (136-145)
[2018-01-10] MEDS: FORMOTEROL FUMARATE 20 MCG/2 ML INHALATION SOLUTION (PERFOROMIST) INH ×2 (08:18→20:52)
[2018-01-10] MEDS: lamoTRIgine 25 MG TAB PO (09:14)
[2018-01-10] MEDS: OMEPRAZOLE 20 MG CAP PO ×2 (09:14→21:25)
[2018-01-10] MEDS: lamoTRIgine 100MG TAB PO (09:15)
[2018-01-10] MEDS: ALPRAZolam 0.5 MG TAB PO ×2 (09:15→21:25)
[2018-01-10] MEDS: FAMOTIDINE 20 MG TAB PO (09:15)
[2018-01-10] MEDS: ASPIRIN 81 MG ENTERIC TAB PO (09:16)
[2018-01-10] MEDS: ESCITALOPRAM OXALATE 10 MG TAB (LEXAPRO) PO (09:16)
[2018-01-10] MEDS: VITAMIN D 1,000 INTERNATIONAL UNITS TABLET PO (09:16)
[2018-01-10] MEDS: FOLIC ACID 1 MG TAB PO (09:16)
[2018-01-10] MEDS: TORSEMIDE 20 MG TAB PO (09:24)
[2018-01-10] MEDS: NYSTATIN 100,000 UNITS/GM TOPICAL PWD 15 GM TOP ×2 (09:24→21:00)
[2018-01-10] MEDS: SPIRONOLACTONE 25 MG TAB PO ×2 (09:24→17:11)
[2018-01-10] MEDS: RIVAROXABAN 10 MG TAB (XARELTO) PO (17:11)
[2018-01-10] MEDS: traZODone 50 MG TAB PO (21:25)
[2018-01-10] MEDS: SIMVASTATIN 20 MG TAB PO (21:25)
[2018-01-11] MEDS: IPRATROPIUM 0.5MG/ALBUTEROL 2.5MG INH SOL UD 3ML (DUONEB)(J7620) INH ×5 (00:09→22:43)
[2018-01-11] MEDS: PERCOCET 5MG/325MG TAB PO ×5 (04:26→22:25)
[2018-01-11] MEDS: SODIUM CHLORIDE 0.9% INJ 10 ML SYR IV ×2 (05:38→17:29)
[2018-01-11] MEDS: FORMOTEROL FUMARATE 20 MCG/2 ML INHALATION SOLUTION (PERFOROMIST) INH ×2 (07:44→20:03)
[2018-01-11] MEDS: OMEPRAZOLE 20 MG CAP PO ×2 (09:22→22:21)
[2018-01-11] MEDS: VITAMIN D 1,000 INTERNATIONAL UNITS TABLET PO (09:22)
[2018-01-11] MEDS: lamoTRIgine 100MG TAB PO (09:22)
[2018-01-11] MEDS: ESCITALOPRAM OXALATE 10 MG TAB (LEXAPRO) PO (09:22)
[2018-01-11] MEDS: ASPIRIN 81 MG ENTERIC TAB PO (09:22)
[2018-01-11] MEDS: FAMOTIDINE 20 MG TAB PO (09:23)
[2018-01-11] MEDS: lamoTRIgine 25 MG TAB PO (09:23)
[2018-01-11] MEDS: FOLIC ACID 1 MG TAB PO (09:23)
[2018-01-11] MEDS: ALPRAZolam 0.5 MG TAB PO ×2 (09:23→22:21)
[2018-01-11] MEDS: SPIRONOLACTONE 25 MG TAB PO ×2 (09:25→17:28)
[2018-01-11] MEDS: TORSEMIDE 20 MG TAB PO (09:25)
[2018-01-11] MEDS: NYSTATIN 100,000 UNITS/GM TOPICAL PWD 15 GM TOP ×2 (09:31→22:22)
[2018-01-11] MEDS: RIVAROXABAN 10 MG TAB (XARELTO) PO (17:27)
[2018-01-11] MEDS: traZODone 50 MG TAB PO (22:20)
[2018-01-11] MEDS: SIMVASTATIN 20 MG TAB PO (22:21)
[2018-01-12] MEDS: PERCOCET 5MG/325MG TAB PO ×5 (03:13→21:23)
[2018-01-12] MEDS: IPRATROPIUM 0.5MG/ALBUTEROL 2.5MG INH SOL UD 3ML (DUONEB)(J7620) INH ×3 (03:56→23:14)
[2018-01-12] MEDS: SODIUM CHLORIDE 0.9% INJ 10 ML SYR IV ×2 (05:43→17:14)
[2018-01-12] MEDS: FORMOTEROL FUMARATE 20 MCG/2 ML INHALATION SOLUTION (PERFOROMIST) INH ×2 (07:13→19:45)
[2018-01-12] MEDS: ASPIRIN 81 MG ENTERIC TAB PO (09:18)
[2018-01-12] MEDS: VITAMIN D 1,000 INTERNATIONAL UNITS TABLET PO (09:18)
[2018-01-12] MEDS: OMEPRAZOLE 20 MG CAP PO ×2 (09:18→21:19)
[2018-01-12] MEDS: ESCITALOPRAM OXALATE 10 MG TAB (LEXAPRO) PO (09:18)
[2018-01-12] MEDS: FOLIC ACID 1 MG TAB PO (09:19)
[2018-01-12] MEDS: FAMOTIDINE 20 MG TAB PO (09:19)
[2018-01-12] MEDS: lamoTRIgine 25 MG TAB PO (09:19)
[2018-01-12] MEDS: TORSEMIDE 20 MG TAB PO (09:20)
[2018-01-12] MEDS: ALPRAZolam 0.5 MG TAB PO ×2 (09:20→21:18)
[2018-01-12] MEDS: SENNA 8.6 MG TAB (SENOKOT) PO (09:21)
[2018-01-12] MEDS: SPIRONOLACTONE 25 MG TAB PO ×2 (09:21→17:00)
[2018-01-12] MEDS: lamoTRIgine 100MG TAB PO (09:21)
[2018-01-12] MEDS: NYSTATIN 100,000 UNITS/GM TOPICAL PWD 15 GM TOP ×2 (09:23→21:20)
[2018-01-12] MEDS: RIVAROXABAN 10 MG TAB (XARELTO) PO (17:13)
[2018-01-12] MEDS: SIMVASTATIN 20 MG TAB PO (21:19)
[2018-01-12] MEDS: traZODone 50 MG TAB PO (21:19)
[2018-01-13] MEDS: IPRATROPIUM 0.5MG/ALBUTEROL 2.5MG INH SOL UD 3ML (DUONEB)(J7620) INH ×4 (03:31→23:26)
[2018-01-13] MEDS: PERCOCET 5MG/325MG TAB PO ×4 (03:47→19:09)
[2018-01-13] MEDS: SODIUM CHLORIDE 0.9% INJ 10 ML SYR IV ×2 (06:00→17:53)
[2018-01-13] MEDS: FORMOTEROL FUMARATE 20 MCG/2 ML INHALATION SOLUTION (PERFOROMIST) INH ×2 (07:04→19:23)
[2018-01-13] MEDS: NYSTATIN 100,000 UNITS/GM TOPICAL PWD 15 GM TOP ×2 (09:00→20:32)
[2018-01-13] MEDS: FUROSEMIDE 40 MG/4 ML VIAL (J1940) IV ×2 (09:00→17:53)
[2018-01-13] MEDS: FOLIC ACID 1 MG TAB PO (10:24)
[2018-01-13] MEDS: ALPRAZolam 0.5 MG TAB PO ×2 (10:24→20:32)
[2018-01-13] MEDS: VITAMIN D 1,000 INTERNATIONAL UNITS TABLET PO (10:25)
[2018-01-13] MEDS: ESCITALOPRAM OXALATE 10 MG TAB (LEXAPRO) PO (10:25)
[2018-01-13] MEDS: lamoTRIgine 100MG TAB PO (10:25)
[2018-01-13] MEDS: FAMOTIDINE 20 MG TAB PO (10:25)
[2018-01-13] MEDS: OMEPRAZOLE 20 MG CAP PO ×2 (10:25→20:32)
[2018-01-13] MEDS: ASPIRIN 81 MG ENTERIC TAB PO (10:25)
[2018-01-13] MEDS: lamoTRIgine 25 MG TAB PO (10:25)
[2018-01-13] MEDS: TORSEMIDE 20 MG TAB PO (10:26)
[2018-01-13] MEDS: SPIRONOLACTONE 25 MG TAB PO ×2 (10:30→17:52)
[2018-01-13 11:13] LABS: HEMATOCRIT 35.1 % (36.0-47.0); HEMOGLOBIN 10.4 g/dl (12.0-15.5); MEAN CORPUSCULAR HEMOGLOBIN 26.5 pg (27.0-33.0); MEAN CORPUSCULAR HGB CONC 29.6 g/dl (32.0-36.5); MEAN CORPUSCULAR VOLUME 89.5 fl (80.0-96.0); PLATELET COUNT, AUTOMATED 305 10^3/uL (150-450); RED BLOOD COUNT 3.92 10^6/uL (4.00-5.40); RED CELL DISTRIBUTION WIDTH 16.7 % (11.5-14.5); WHITE BLOOD COUNT 5.3 10^3/uL (4.0-10.0)
[2018-01-13 12:55] LABS: ANION GAP 7 MEQ/L (8-16); BLOOD UREA NITROGEN 9 MG/DL (7-18); CARBON DIOXIDE LEVEL 35 MEQ/L (21-32); CHLORIDE LEVEL 101 MEQ/L (98-107); CREATININE FOR GFR 1.02 MG/DL (0.55-1.30); GLUCOSE, FASTING 90 MG/DL (70-100); POTASSIUM SERUM 4.4 MEQ/L (3.5-5.1); SODIUM LEVEL 143 MEQ/L (136-145)
[2018-01-13] MEDS: RIVAROXABAN 10 MG TAB (XARELTO) PO (17:53)
[2018-01-13] MEDS: SIMVASTATIN 20 MG TAB PO (20:32)
[2018-01-13] MEDS: traZODone 50 MG TAB PO (20:32)
[2018-01-14] MEDS: PERCOCET 5MG/325MG TAB PO ×3 (02:28→11:02)
[2018-01-14] MEDS: IPRATROPIUM 0.5MG/ALBUTEROL 2.5MG INH SOL UD 3ML (DUONEB)(J7620) INH (03:56)
[2018-01-14] MEDS: SODIUM CHLORIDE 0.9% INJ 10 ML SYR IV (06:34)
[2018-01-14] MEDS: FORMOTEROL FUMARATE 20 MCG/2 ML INHALATION SOLUTION (PERFOROMIST) INH (07:55)
[2018-01-14] MEDS: OMEPRAZOLE 20 MG CAP PO (08:53)
[2018-01-14] MEDS: ALPRAZolam 0.5 MG TAB PO (08:54)
[2018-01-14] MEDS: lamoTRIgine 100MG TAB PO (08:54)
[2018-01-14] MEDS: SPIRONOLACTONE 25 MG TAB PO (08:54)
[2018-01-14] MEDS: ESCITALOPRAM OXALATE 10 MG TAB (LEXAPRO) PO (08:54)
[2018-01-14] MEDS: VITAMIN D 1,000 INTERNATIONAL UNITS TABLET PO (08:54)
[2018-01-14] MEDS: FAMOTIDINE 20 MG TAB PO (08:54)
[2018-01-14] MEDS: TORSEMIDE 20 MG TAB PO (08:54)
[2018-01-14] MEDS: lamoTRIgine 25 MG TAB PO (08:54)
[2018-01-14] MEDS: FOLIC ACID 1 MG TAB PO (08:55)
[2018-01-14] MEDS: NYSTATIN 100,000 UNITS/GM TOPICAL PWD 15 GM TOP (08:55)
[2018-01-14] MEDS: ASPIRIN 81 MG ENTERIC TAB PO (08:55)
== END 2018-01-14 14:40 | disposition home health service (06) | DRG 384 ==
LOC: M ED INP 12-26 03:50 → M MS5PR 12-26 15:16 → M ED 17:41
PROC: 0JCN0ZZ Extirpation of Matter from Right Lower Leg Subcutaneous Tissue and Fascia, Open Approach (ICD-10-PCS; principal; 2017-12-28 12:00)
PROC: 0JBN0ZZ Excision of Right Lower Leg Subcutaneous Tissue and Fascia, Open Approach (ICD-10-PCS; 2017-12-28 12:00)
PROC: 30233N1 Transfusion of Nonautologous Red Blood Cells into Peripheral Vein, Percutaneous Approach (ICD-10-PCS; 2017-12-28 12:11)
DX: S80.11XA Contusion of right lower leg, initial encounter (principal); I27.20 Pulmonary hypertension, unspecified; I11.0 Hypertensive heart disease with heart failure; N39.0 Urinary tract infection, site not specified; D62 Acute posthemorrhagic anemia; I50.32 Chronic diastolic (congestive) heart failure; R55 Syncope and collapse; E66.01 Morbid (severe) obesity due to excess calories; J44.9 Chronic obstructive pulmonary disease, unspecified; K21.9 Gastro-esophageal reflux disease without esophagitis; G43.909 Migraine, unspecified, not intractable, without status migrainosus; E78.5 Hyperlipidemia, unspecified; B96.20 Unspecified Escherichia coli [E. coli] as the cause of diseases classified elsewhere; M54.2 Cervicalgia; R26.89 Other abnormalities of gait and mobility; F39 Unspecified mood [affective] disorder; Z88.0 Allergy status to penicillin; Z88.1 Allergy status to other antibiotic agents; Z88.2 Allergy status to sulfonamides; Z88.5 Allergy status to narcotic agent; Z88.8 Allergy status to other drugs, medicaments and biological substances; Z79.891 Long term (current) use of opiate analgesic; Z79.82 Long term (current) use of aspirin; Z79.01 Long term (current) use of anticoagulants; Z79.899 Other long term (current) drug therapy; Z86.718 Personal history of other venous thrombosis and embolism; W18.39XA Other fall on same level, initial encounter; Y92.009 Unspecified place in unspecified non-institutional (private) residence as the place of occurrence of the external cause; Z68.37 Body mass index [BMI] 37.0-37.9, adult

== ENCOUNTER 2018-01-15 16:32 | Emergency (ER) | payer OTHER ==
[2018-01-15] MEDS: IPRATROPIUM 0.5MG/ALBUTEROL 2.5MG INH SOL UD 3ML (DUONEB)(J7620) NEB (17:10)
[2018-01-15 17:15] LABS: ABG BASE EXCESS 10.2 (-2.0-2.0); ABG HCO3 37.3 MEQ/L (22.0-26.0); ABG O2 SATURATION 96.3 % (95.0-99.0); ABG PARTIAL PRESSURE O2 83.1 mmHg (75.0-100.0); ABG STANDARD HCO3 33.9 MEQ/L (22.0-26.0); ABG TOTAL CO2 39.2 MEQ/L (22.0-29.0); ABG pH (ARTERIAL) 7.386 UNITS (7.350-7.450)
[2018-01-15 17:16] LABS: ABG PARTIAL PRESSURE CO2 63.6 mmHg (35.0-45.0)
[2018-01-15] MEDS: PERCOCET 5MG/325MG TAB PO (17:49)
== END 2018-01-15 19:15 | disposition home or self-care (01) ==
LOC: M ED 16:32
DX: J44.9 Chronic obstructive pulmonary disease, unspecified (principal); I51.9 Heart disease, unspecified; I10 Essential (primary) hypertension; Z87.891 Personal history of nicotine dependence; Z79.82 Long term (current) use of aspirin; Z79.899 Other long term (current) drug therapy; Z88.5 Allergy status to narcotic agent; Z88.8 Allergy status to other drugs, medicaments and biological substances; Z88.1 Allergy status to other antibiotic agents; Z88.0 Allergy status to penicillin; Z88.2 Allergy status to sulfonamides; Z91.89 Other specified personal risk factors, not elsewhere classified
CPT/HCPCS: 71101

== ENCOUNTER 2018-01-18 18:36 | Emergency (ER) | payer OTHER ==
[2018-01-18] MEDS: PERCOCET 5MG/325MG TAB PO (20:55)
== END 2018-01-18 22:59 | disposition home or self-care (01) ==
LOC: M ED 18:36
DX: S20.219A Contusion of unspecified front wall of thorax, initial encounter (principal); S09.90XA Unspecified injury of head, initial encounter; S96.912A Strain of unspecified muscle and tendon at ankle and foot level, left foot, initial encounter; W01.198A Fall on same level from slipping, tripping and stumbling with subsequent striking against other object, initial encounter; Y92.098 Other place in other non-institutional residence as the place of occurrence of the external cause; I11.9 Hypertensive heart disease without heart failure; E11.9 Type 2 diabetes mellitus without complications; Z87.891 Personal history of nicotine dependence; Z88.1 Allergy status to other antibiotic agents; Z88.8 Allergy status to other drugs, medicaments and biological substances; Z88.0 Allergy status to penicillin; Z88.2 Allergy status to sulfonamides; Z79.899 Other long term (current) drug therapy; Z79.01 Long term (current) use of anticoagulants; Z79.82 Long term (current) use of aspirin
CPT/HCPCS: 71101

== ENCOUNTER 2018-01-20 17:44 | Emergency (ER) | payer OTHER ==
[2018-01-20 18:42] LABS: BASO # 0.1 10^3/uL (0.0-0.2); BASO % 0.7 % (0.0-1.0); EOS # 0.4 10^3/uL (0.0-0.50); EOS % 5.2 % (0.0-3.0); HEMATOCRIT 33.9 % (36.0-47.0); HEMOGLOBIN 9.9 g/dl (12.0-15.5); IMMATURE GRANULOCYTE % 0.3 % (0-3.0); LYMPH # 1.2 10^3/uL (1.5-4.5); LYMPH % 18.4 % (24.0-44.0); MEAN CORPUSCULAR HEMOGLOBIN 26.8 pg (27.0-33.0); MEAN CORPUSCULAR HGB CONC 29.2 g/dl (32.0-36.5); MEAN CORPUSCULAR VOLUME 91.6 fl (80.0-96.0); MONO # 0.6 10^3/uL (0.0-0.8); MONO % 9.5 % (0.0-5.0); NEUTROPHILS # 4.4 10^3/uL (1.8-7.7); NEUTROPHILS % 65.9 % (36.0-66.0); PLATELET COUNT, AUTOMATED 226 10^3/uL (150-450); RED CELL DISTRIBUTION WIDTH 16.7 % (11.5-14.5); WHITE BLOOD COUNT 6.7 10^3/uL (4.0-10.0)
[2018-01-20] MEDS: NS 1,000 ML IV (18:55)
[2018-01-20] MEDS: ONDANSETRON 4MG/2ML VIAL (J2405) IV (18:55)
[2018-01-20] MEDS: IPRATROPIUM 0.5MG/ALBUTEROL 2.5MG INH SOL UD 3ML (DUONEB)(J7620) NEB (19:05)
[2018-01-20 19:11] LABS: ALBUMIN 2.4 GM/DL (3.2-5.2); ALBUMIN/GLOBULIN RATIO 0.55 (1.00-1.93); ALKALINE PHOSPHATASE 60 U/L (45-117); ALT/SGPT 14 U/L (12-78); ANION GAP 6 MEQ/L (8-16); AST/SGOT 24 U/L (7-37); BILIRUBIN,DIRECT < 0.1 MG/DL (0.0-0.2); BILIRUBIN,TOTAL 0.3 MG/DL (0.2-1.0); BLOOD UREA NITROGEN 5 MG/DL (7-18); CALCIUM LEVEL 8.8 MG/DL (8.5-10.1); CARBON DIOXIDE LEVEL 34 MEQ/L (21-32); CHLORIDE LEVEL 101 MEQ/L (98-107); CK-MB VALUE MASS < 1.0 NG/ML (<3.6); CPK CREATINE PHOSPHOKINASE 45 U/L (26-192); CREATININE FOR GFR 0.81 MG/DL (0.55-1.30); GLOMERULAR FILTRATION RATE > 60.0 (>51); GLUCOSE, FASTING 89 MG/DL (70-100); LIPASE 75 U/L (73-393); MB/CK RELATIVE INDEX 2.22 (< OR =4); POTASSIUM SERUM 3.7 MEQ/L (3.5-5.1); SODIUM LEVEL 141 MEQ/L (136-145); TOTAL PROTEIN 6.8 GM/DL (6.4-8.2); TROPONIN I < 0.02 NG/ML (< 0.10)
[2018-01-20] MEDS: fentaNYL 100 MCG/2 ML INJECTION (J3010) IV (19:47)
[2018-01-20] MEDS: FAMOTIDINE IV BAG 20 MG in APPROPRIATE DILUENT 1 EA IV (19:47)
[2018-01-20 20:13] LABS: ABG BASE EXCESS 7.7 (-2.0-2.0); ABG HCO3 33.2 MEQ/L (22.0-26.0); ABG O2 SATURATION 96.6 % (95.0-99.0); ABG PARTIAL PRESSURE CO2 51.6 mmHg (35.0-45.0); ABG PARTIAL PRESSURE O2 81.3 mmHg (75.0-100.0); ABG STANDARD HCO3 31.5 MEQ/L (22.0-26.0); ABG TOTAL CO2 34.8 MEQ/L (22.0-29.0); ABG pH (ARTERIAL) 7.426 UNITS (7.350-7.450)
== END 2018-01-20 21:35 | disposition home or self-care (01) ==
LOC: M ED 17:44
DX: T14.8XXA Other injury of unspecified body region, initial encounter (principal); W19.XXXA Unspecified fall, initial encounter; Y92.098 Other place in other non-institutional residence as the place of occurrence of the external cause; R11.2 Nausea with vomiting, unspecified; E11.9 Type 2 diabetes mellitus without complications; I10 Essential (primary) hypertension; J44.9 Chronic obstructive pulmonary disease, unspecified; Z88.8 Allergy status to other drugs, medicaments and biological substances; Z88.1 Allergy status to other antibiotic agents; Z88.5 Allergy status to narcotic agent; Z88.0 Allergy status to penicillin; Z88.2 Allergy status to sulfonamides; Z79.899 Other long term (current) drug therapy; Z79.01 Long term (current) use of anticoagulants; Z79.82 Long term (current) use of aspirin
CPT/HCPCS: J2405

== ENCOUNTER 2018-02-22 22:56 | Inpatient (IN) | payer OTHER ==
[2018-02-23 00:43] LABS: BASO % 0.5 % (0.0-1.0); EOS # 0.4 10^3/uL (0.0-0.50); EOS % 6.1 % (0.0-3.0); HEMATOCRIT 40.5 % (36.0-47.0); HEMOGLOBIN 11.7 g/dl (12.0-15.5); IMMATURE GRANULOCYTE % 0.3 % (0-3.0); LYMPH # 1.7 10^3/uL (1.5-4.5); LYMPH % 25.8 % (24.0-44.0); MEAN CORPUSCULAR HEMOGLOBIN 26.7 pg (27.0-33.0); MEAN CORPUSCULAR HGB CONC 28.9 g/dl (32.0-36.5); MEAN CORPUSCULAR VOLUME 92.3 fl (80.0-96.0); MONO # 0.5 10^3/uL (0.0-0.8); MONO % 7.8 % (0.0-5.0); NEUTROPHILS # 3.9 10^3/uL (1.8-7.7); NEUTROPHILS % 59.5 % (36.0-66.0); PLATELET COUNT, AUTOMATED 225 10^3/uL (150-450); RED BLOOD COUNT 4.39 10^6/uL (4.00-5.40); RED CELL DISTRIBUTION WIDTH 15.6 % (11.5-14.5); WHITE BLOOD COUNT 6.5 10^3/uL (4.0-10.0)
[2018-02-23] MEDS ORDERED: OXYCODONE/APAP 5MG/325MG(BULK FOR ED) 1 TABLET PO (00:45)
[2018-02-23] MEDS: PERCOCET 5MG/325MG TAB PO ×4 (01:09→18:37)
[2018-02-23 01:20] LABS: ANION GAP 1 MEQ/L (8-16); BLOOD UREA NITROGEN 10 MG/DL (7-18); CALCIUM LEVEL 9.5 MG/DL (8.5-10.1); CARBON DIOXIDE LEVEL 40 MEQ/L (21-32); CHLORIDE LEVEL 101 MEQ/L (98-107); GLOMERULAR FILTRATION RATE > 60.0 (>51); GLUCOSE, FASTING 89 MG/DL (70-100); NT-PRO BNP 83 PG/ML (<125); POTASSIUM SERUM 3.5 MEQ/L (3.5-5.1); SODIUM LEVEL 142 MEQ/L (136-145)
[2018-02-23] MEDS ORDERED: NITROGLYCERIN 0.4 MG SUBL TABLET SL (03:30)
[2018-02-23] MEDS ORDERED: SENNA 8.6 MG TAB (SENOKOT) PO (03:30)
[2018-02-23] MEDS ORDERED: ALBUTEROL 90 MCG/ACT 8GM HFA INHALER INH (03:30)
[2018-02-23] MEDS: NS 1,000 ML IV (04:40)
[2018-02-23] MEDS ORDERED: PILL CRUSHER/CUTTER 1 EACH XX (05:00)
[2018-02-23] MEDS: FORMOTEROL FUMARATE 20 MCG/2 ML INHALATION SOLUTION (PERFOROMIST) INH (08:00)
[2018-02-23] MEDS: SYMBICORT 160/4.5MCG INHALER 6GM INH ×2 (08:39→21:43)
[2018-02-23] MEDS: CLOTRIMAZOLE 1% TOPICAL CREAM 30GM TOP ×2 (09:00→21:31)
[2018-02-23] MEDS: VITAMIN D 1,000 INTERNATIONAL UNITS TABLET PO (09:06)
[2018-02-23] MEDS: lamoTRIgine 100MG TAB PO (09:06)
[2018-02-23] MEDS: FAMOTIDINE 20 MG TAB PO (09:07)
[2018-02-23] MEDS: ESCITALOPRAM OXALATE 10 MG TAB (LEXAPRO) PO (09:07)
[2018-02-23] MEDS: OMEPRAZOLE 20 MG CAP PO ×2 (09:08→21:30)
[2018-02-23] MEDS: ALPRAZolam 0.5 MG TAB PO ×2 (09:08→21:31)
[2018-02-23] MEDS: FOLIC ACID 1 MG TAB PO (09:08)
[2018-02-23] MEDS: ASPIRIN 81 MG ENTERIC TAB PO (09:08)
[2018-02-23] MEDS: RIVAROXABAN 10 MG TAB (XARELTO) PO (09:09)
[2018-02-23] MEDS: traZODone 50 MG TAB PO (21:30)
[2018-02-23] MEDS: SIMVASTATIN 20 MG TAB PO (21:30)
[2018-02-23] MEDS: IPRATROPIUM 0.5MG/ALBUTEROL 2.5MG INH SOL UD 3ML (DUONEB)(J7620) INH (21:43)
[2018-02-24] MEDS: PERCOCET 5MG/325MG TAB PO ×5 (01:48→20:13)
[2018-02-24 05:48] LABS: HEMATOCRIT 34.5 % (36.0-47.0); HEMOGLOBIN 10.2 g/dl (12.0-15.5); MEAN CORPUSCULAR HEMOGLOBIN 26.9 pg (27.0-33.0); MEAN CORPUSCULAR HGB CONC 29.6 g/dl (32.0-36.5); PLATELET COUNT, AUTOMATED 196 10^3/uL (150-450); RED BLOOD COUNT 3.79 10^6/uL (4.00-5.40); RED CELL DISTRIBUTION WIDTH 15.4 % (11.5-14.5); WHITE BLOOD COUNT 5.9 10^3/uL (4.0-10.0)
[2018-02-24 06:04] LABS: ANION GAP 5 MEQ/L (8-16); BLOOD UREA NITROGEN 10 MG/DL (7-18); CALCIUM LEVEL 9.1 MG/DL (8.5-10.1); CARBON DIOXIDE LEVEL 34 MEQ/L (21-32); CHLORIDE LEVEL 101 MEQ/L (98-107); CREATININE FOR GFR 0.82 MG/DL (0.55-1.30); GLOMERULAR FILTRATION RATE > 60.0 (>51); GLUCOSE, FASTING 81 MG/DL (70-100); POTASSIUM SERUM 3.9 MEQ/L (3.5-5.1); SODIUM LEVEL 140 MEQ/L (136-145)
[2018-02-24] MEDS: SYMBICORT 160/4.5MCG INHALER 6GM INH ×2 (08:43→20:18)
[2018-02-24] MEDS: TORSEMIDE 20 MG TAB PO (09:00)
[2018-02-24] MEDS: VITAMIN D 1,000 INTERNATIONAL UNITS TABLET PO (10:24)
[2018-02-24] MEDS: ALPRAZolam 0.5 MG TAB PO ×2 (10:26→20:12)
[2018-02-24] MEDS: ESCITALOPRAM OXALATE 10 MG TAB (LEXAPRO) PO (10:26)
[2018-02-24] MEDS: lamoTRIgine 100MG TAB PO (10:26)
[2018-02-24] MEDS: FAMOTIDINE 20 MG TAB PO (10:26)
[2018-02-24] MEDS: CLOTRIMAZOLE 1% TOPICAL CREAM 30GM TOP ×2 (10:27→20:13)
[2018-02-24] MEDS: OMEPRAZOLE 20 MG CAP PO ×2 (10:27→20:12)
[2018-02-24] MEDS: ASPIRIN 81 MG ENTERIC TAB PO (10:27)
[2018-02-24] MEDS: RIVAROXABAN 10 MG TAB (XARELTO) PO (10:27)
[2018-02-24] MEDS: FOLIC ACID 1 MG TAB PO (10:27)
[2018-02-24] MEDS: IPRATROPIUM 0.5MG/ALBUTEROL 2.5MG INH SOL UD 3ML (DUONEB)(J7620) INH (13:50)
[2018-02-24] MEDS: ONDANSETRON 4 MG TAB (S0181) PO (18:30)
[2018-02-24] MEDS: SIMVASTATIN 20 MG TAB PO (20:12)
[2018-02-24] MEDS: traZODone 50 MG TAB PO (20:13)
[2018-02-24] MEDS ORDERED: SPIRONOLACTONE 25 MG TAB PO (21:00)
[2018-02-25] MEDS: PERCOCET 5MG/325MG TAB PO ×5 (01:13→18:42)
[2018-02-25] MEDS: VITAMIN D 1,000 INTERNATIONAL UNITS TABLET PO (07:45)
[2018-02-25] MEDS: OMEPRAZOLE 20 MG CAP PO ×2 (07:45→20:59)
[2018-02-25] MEDS: ALPRAZolam 0.5 MG TAB PO ×2 (07:46→20:59)
[2018-02-25] MEDS: lamoTRIgine 100MG TAB PO (07:46)
[2018-02-25] MEDS: FAMOTIDINE 20 MG TAB PO (07:47)
[2018-02-25] MEDS: ESCITALOPRAM OXALATE 10 MG TAB (LEXAPRO) PO (07:47)
[2018-02-25] MEDS: ASPIRIN 81 MG ENTERIC TAB PO (07:48)
[2018-02-25] MEDS: FOLIC ACID 1 MG TAB PO (07:48)
[2018-02-25] MEDS: RIVAROXABAN 10 MG TAB (XARELTO) PO (07:48)
[2018-02-25] MEDS: TORSEMIDE 20 MG TAB PO (07:48)
[2018-02-25] MEDS: CLOTRIMAZOLE 1% TOPICAL CREAM 30GM TOP ×2 (07:49→21:00)
[2018-02-25] MEDS: SYMBICORT 160/4.5MCG INHALER 6GM INH ×2 (08:55→19:43)
[2018-02-25] MEDS: IPRATROPIUM 0.5MG/ALBUTEROL 2.5MG INH SOL UD 3ML (DUONEB)(J7620) INH (15:43)
[2018-02-25] MEDS: traZODone 50 MG TAB PO (20:59)
[2018-02-25] MEDS: SIMVASTATIN 20 MG TAB PO (20:59)
[2018-02-26] MEDS: PERCOCET 5MG/325MG TAB PO ×5 (02:12→23:34)
[2018-02-26] MEDS: SYMBICORT 160/4.5MCG INHALER 6GM INH ×2 (08:00→19:18)
[2018-02-26 08:11] LABS: HEMATOCRIT 32.1 % (36.0-47.0); HEMOGLOBIN 9.5 g/dl (12.0-15.5); MEAN CORPUSCULAR HEMOGLOBIN 26.5 pg (27.0-33.0); MEAN CORPUSCULAR HGB CONC 29.6 g/dl (32.0-36.5); MEAN CORPUSCULAR VOLUME 89.4 fl (80.0-96.0); PLATELET COUNT, AUTOMATED 181 10^3/uL (150-450); RED BLOOD COUNT 3.59 10^6/uL (4.00-5.40); RED CELL DISTRIBUTION WIDTH 15.4 % (11.5-14.5); WHITE BLOOD COUNT 8.2 10^3/uL (4.0-10.0)
[2018-02-26 08:44] LABS: ANION GAP 6 MEQ/L (8-16); BLOOD UREA NITROGEN 10 MG/DL (7-18); CARBON DIOXIDE LEVEL 35 MEQ/L (21-32); CHLORIDE LEVEL 101 MEQ/L (98-107); CREATININE FOR GFR 0.86 MG/DL (0.55-1.30); GLOMERULAR FILTRATION RATE > 60.0 (>45); GLUCOSE, FASTING 92 MG/DL (70-100); POTASSIUM SERUM 3.6 MEQ/L (3.5-5.1); SODIUM LEVEL 142 MEQ/L (136-145)
[2018-02-26] MEDS: ASPIRIN 81 MG ENTERIC TAB PO (08:50)
[2018-02-26] MEDS: VITAMIN D 1,000 INTERNATIONAL UNITS TABLET PO (08:50)
[2018-02-26] MEDS: TORSEMIDE 20 MG TAB PO (08:50)
[2018-02-26] MEDS: ALPRAZolam 0.5 MG TAB PO ×2 (08:50→20:08)
[2018-02-26] MEDS: RIVAROXABAN 10 MG TAB (XARELTO) PO (08:50)
[2018-02-26] MEDS: FOLIC ACID 1 MG TAB PO (08:50)
[2018-02-26] MEDS: FAMOTIDINE 20 MG TAB PO (08:51)
[2018-02-26] MEDS: ESCITALOPRAM OXALATE 10 MG TAB (LEXAPRO) PO (08:51)
[2018-02-26] MEDS: lamoTRIgine 100MG TAB PO (08:51)
[2018-02-26] MEDS: OMEPRAZOLE 20 MG CAP PO ×2 (08:51→20:08)
[2018-02-26] MEDS: CLOTRIMAZOLE 1% TOPICAL CREAM 30GM TOP ×2 (08:51→20:08)
[2018-02-26] MEDS: SIMVASTATIN 20 MG TAB PO (20:08)
[2018-02-26] MEDS: traZODone 50 MG TAB PO (20:08)
[2018-02-27] MEDS: PERCOCET 5MG/325MG TAB PO ×2 (03:40→09:02)
[2018-02-27] MEDS: SYMBICORT 160/4.5MCG INHALER 6GM INH ×3 (08:10→21:00)
[2018-02-27] MEDS: IPRATROPIUM 0.5MG/ALBUTEROL 2.5MG INH SOL UD 3ML (DUONEB)(J7620) INH ×3 (08:42→15:32)
[2018-02-27] MEDS: VITAMIN D 1,000 INTERNATIONAL UNITS TABLET PO (09:30)
[2018-02-27] MEDS: lamoTRIgine 100MG TAB PO (09:30)
[2018-02-27] MEDS: ESCITALOPRAM OXALATE 10 MG TAB (LEXAPRO) PO (09:31)
[2018-02-27] MEDS: TORSEMIDE 20 MG TAB PO (09:31)
[2018-02-27] MEDS: FAMOTIDINE 20 MG TAB PO (09:31)
[2018-02-27] MEDS: ASPIRIN 81 MG ENTERIC TAB PO (09:31)
[2018-02-27] MEDS: FOLIC ACID 1 MG TAB PO (09:31)
[2018-02-27] MEDS: RIVAROXABAN 10 MG TAB (XARELTO) PO (09:32)
[2018-02-27] MEDS: OMEPRAZOLE 20 MG CAP PO ×2 (09:32→20:26)
[2018-02-27] MEDS: CLOTRIMAZOLE 1% TOPICAL CREAM 30GM TOP ×2 (09:33→20:26)
[2018-02-27] MEDS: ALPRAZolam 0.5 MG TAB PO (10:13)
[2018-02-27 12:11] LABS: HEMATOCRIT 34.3 % (36.0-47.0); HEMOGLOBIN 10.3 g/dl (12.0-15.5); MEAN CORPUSCULAR HEMOGLOBIN 27.2 pg (27.0-33.0); MEAN CORPUSCULAR VOLUME 90.5 fl (80.0-96.0); PLATELET COUNT, AUTOMATED 178 10^3/uL (150-450); RED BLOOD COUNT 3.79 10^6/uL (4.00-5.40); RED CELL DISTRIBUTION WIDTH 15.4 % (11.5-14.5); WHITE BLOOD COUNT 7.7 10^3/uL (4.0-10.0)
[2018-02-27] MEDS: ONDANSETRON 4 MG TAB (S0181) PO (12:46)
[2018-02-27 12:52] LABS: ANION GAP 4 MEQ/L (8-16); BLOOD UREA NITROGEN 13 MG/DL (7-18); CALCIUM LEVEL 9.2 MG/DL (8.8-10.2); CARBON DIOXIDE LEVEL 38 MEQ/L (21-32); CHLORIDE LEVEL 97 MEQ/L (98-107); CREATININE FOR GFR 0.95 MG/DL (0.55-1.30); GLOMERULAR FILTRATION RATE > 60.0 (>45); GLUCOSE, FASTING 92 MG/DL (70-100); POTASSIUM SERUM 3.8 MEQ/L (3.5-5.1); SODIUM LEVEL 139 MEQ/L (136-145)
[2018-02-27] MEDS: ACETAMINOPHEN TAB 650MG DOSE (2X325MG) PO (18:59)
[2018-02-27] MEDS: traZODone 50 MG TAB PO (20:26)
[2018-02-27] MEDS: SIMVASTATIN 20 MG TAB PO (20:26)
[2018-02-28] MEDS: SYMBICORT 160/4.5MCG INHALER 6GM INH ×2 (07:22→20:27)
[2018-02-28] MEDS: IPRATROPIUM 0.5MG/ALBUTEROL 2.5MG INH SOL UD 3ML (DUONEB)(J7620) INH ×4 (07:22→20:29)
[2018-02-28 07:50] LABS: HEMATOCRIT 36.1 % (36.0-47.0); HEMOGLOBIN 10.6 g/dl (12.0-15.5); MEAN CORPUSCULAR HEMOGLOBIN 26.8 pg (27.0-33.0); MEAN CORPUSCULAR HGB CONC 29.4 g/dl (32.0-36.5); MEAN CORPUSCULAR VOLUME 91.4 fl (80.0-96.0); PLATELET COUNT, AUTOMATED 198 10^3/uL (150-450); RED BLOOD COUNT 3.95 10^6/uL (4.00-5.40); RED CELL DISTRIBUTION WIDTH 15.5 % (11.5-14.5)
[2018-02-28] MEDS: FAMOTIDINE 20 MG TAB PO (08:00)
[2018-02-28] MEDS: FOLIC ACID 1 MG TAB PO (08:00)
[2018-02-28] MEDS: ASPIRIN 81 MG ENTERIC TAB PO (08:00)
[2018-02-28] MEDS: RIVAROXABAN 10 MG TAB (XARELTO) PO (08:00)
[2018-02-28] MEDS: ESCITALOPRAM OXALATE 10 MG TAB (LEXAPRO) PO (08:00)
[2018-02-28] MEDS: lamoTRIgine 100MG TAB PO (08:01)
[2018-02-28] MEDS: CLOTRIMAZOLE 1% TOPICAL CREAM 30GM TOP ×2 (08:01→21:31)
[2018-02-28] MEDS: OMEPRAZOLE 20 MG CAP PO ×2 (08:01→21:31)
[2018-02-28] MEDS: VITAMIN D 1,000 INTERNATIONAL UNITS TABLET PO (08:01)
[2018-02-28 08:03] LABS: ANION GAP 5 MEQ/L (8-16); BLOOD UREA NITROGEN 13 MG/DL (7-18); CALCIUM LEVEL 9.3 MG/DL (8.8-10.2); CARBON DIOXIDE LEVEL 39 MEQ/L (21-32); CHLORIDE LEVEL 99 MEQ/L (98-107); CREATININE FOR GFR 0.95 MG/DL (0.55-1.30); GLOMERULAR FILTRATION RATE > 60.0 (>45); GLUCOSE, FASTING 81 MG/DL (70-100); POTASSIUM SERUM 4.1 MEQ/L (3.5-5.1); SODIUM LEVEL 143 MEQ/L (136-145)
[2018-02-28] MEDS: traMADol 50 MG TAB PO (09:21)
[2018-02-28] MEDS: PERCOCET 5MG/325MG TAB PO ×2 (13:53→21:31)
[2018-02-28] MEDS: MIDODRINE 2.5 MG TAB PO (16:25)
[2018-02-28] MEDS: traZODone 50 MG TAB PO (21:00)
[2018-02-28] MEDS: SIMVASTATIN 20 MG TAB PO (21:31)
[2018-02-28 23:34] LABS: KETONE, URINE AUTO RFX NEGATIVE (NEGATIVE); MUCUS, URINE RFX SMALL (NEGATIVE); RBC, URINE AUTO RFX 89 /HPF (0-3); SPECIFIC GRAVITY UR AUTO RFX 1.027 (1.002-1.035); SQUAM EPITHELIAL CELL UR AURFX 9 /HPF (0-6); TRANSITIONAL EPITHELIAL AU RFX 4 /HPF
[2018-02-28 23:35] LABS: LEUKOCYTE ESTERASE UR AUTO RFX 3+ (NEGATIVE); NITRITE, URINE AUTO RFX POSITIVE (NEGATIVE); WBC, URINE AUTO RFX TNTC /HPF (0-3)
[2018-03-01] MEDS: PERCOCET 5MG/325MG TAB PO ×3 (06:19→18:37)
[2018-03-01 07:19] LABS: HEMATOCRIT 33.2 % (36.0-47.0); HEMOGLOBIN 9.9 g/dl (12.0-15.5); MEAN CORPUSCULAR HEMOGLOBIN 26.7 pg (27.0-33.0); MEAN CORPUSCULAR HGB CONC 29.8 g/dl (32.0-36.5); MEAN CORPUSCULAR VOLUME 89.5 fl (80.0-96.0); PLATELET COUNT, AUTOMATED 188 10^3/uL (150-450); RED BLOOD COUNT 3.71 10^6/uL (4.00-5.40); RED CELL DISTRIBUTION WIDTH 15.5 % (11.5-14.5); WHITE BLOOD COUNT 4.4 10^3/uL (4.0-10.0)
[2018-03-01] MEDS: SYMBICORT 160/4.5MCG INHALER 6GM INH ×2 (07:20→20:02)
[2018-03-01 07:31] LABS: ANION GAP 5 MEQ/L (8-16); BLOOD UREA NITROGEN 13 MG/DL (7-18); CALCIUM LEVEL 9.2 MG/DL (8.8-10.2); CARBON DIOXIDE LEVEL 36 MEQ/L (21-32); CHLORIDE LEVEL 99 MEQ/L (98-107); CREATININE FOR GFR 0.91 MG/DL (0.55-1.30); GLOMERULAR FILTRATION RATE > 60.0 (>45); GLUCOSE, FASTING 86 MG/DL (70-100); POTASSIUM SERUM 4.1 MEQ/L (3.5-5.1); SODIUM LEVEL 140 MEQ/L (136-145)
[2018-03-01] MEDS: ESCITALOPRAM OXALATE 10 MG TAB (LEXAPRO) PO (08:00)
[2018-03-01] MEDS: RIVAROXABAN 10 MG TAB (XARELTO) PO (08:00)
[2018-03-01] MEDS: ASPIRIN 81 MG ENTERIC TAB PO (08:01)
[2018-03-01] MEDS: OMEPRAZOLE 20 MG CAP PO ×2 (08:01→22:15)
[2018-03-01] MEDS: FOLIC ACID 1 MG TAB PO (08:01)
[2018-03-01] MEDS: VITAMIN D 1,000 INTERNATIONAL UNITS TABLET PO (08:02)
[2018-03-01] MEDS: lamoTRIgine 100MG TAB PO (08:02)
[2018-03-01] MEDS: FAMOTIDINE 20 MG TAB PO (08:04)
[2018-03-01] MEDS: MIDODRINE 2.5 MG TAB PO ×2 (08:04→16:57)
[2018-03-01] MEDS: CLOTRIMAZOLE 1% TOPICAL CREAM 30GM TOP ×2 (08:05→22:16)
[2018-03-01] MEDS: FOSFOMYCIN TROMETHAMINE 3 GM POWDER PACKET (MONUROL) PO (10:04)
[2018-03-01] MEDS: ONDANSETRON 4 MG TAB (S0181) PO (18:10)
[2018-03-01] MEDS: IPRATROPIUM 0.5MG/ALBUTEROL 2.5MG INH SOL UD 3ML (DUONEB)(J7620) INH (20:03)
[2018-03-01] MEDS: SIMVASTATIN 20 MG TAB PO (22:16)
[2018-03-01] MEDS: traZODone 50 MG TAB PO (22:16)
[2018-03-02] MEDS: PERCOCET 5MG/325MG TAB PO ×4 (02:02→21:43)
[2018-03-02 06:52] LABS: HEMATOCRIT 33.8 % (36.0-47.0); HEMOGLOBIN 9.8 g/dl (12.0-15.5); MEAN CORPUSCULAR HEMOGLOBIN 26.6 pg (27.0-33.0); MEAN CORPUSCULAR VOLUME 91.6 fl (80.0-96.0); PLATELET COUNT, AUTOMATED 201 10^3/uL (150-450); RED BLOOD COUNT 3.69 10^6/uL (4.00-5.40); RED CELL DISTRIBUTION WIDTH 15.2 % (11.5-14.5)
[2018-03-02 07:12] LABS: ANION GAP 4 MEQ/L (8-16); BLOOD UREA NITROGEN 12 MG/DL (7-18); CALCIUM LEVEL 9.1 MG/DL (8.8-10.2); CARBON DIOXIDE LEVEL 35 MEQ/L (21-32); CHLORIDE LEVEL 100 MEQ/L (98-107); CREATININE FOR GFR 0.83 MG/DL (0.55-1.30); GLOMERULAR FILTRATION RATE > 60.0 (>45); GLUCOSE, FASTING 81 MG/DL (70-100); POTASSIUM SERUM 4.2 MEQ/L (3.5-5.1); SODIUM LEVEL 139 MEQ/L (136-145)
[2018-03-02] MEDS: IPRATROPIUM 0.5MG/ALBUTEROL 2.5MG INH SOL UD 3ML (DUONEB)(J7620) INH ×4 (07:37→20:38)
[2018-03-02] MEDS: SYMBICORT 160/4.5MCG INHALER 6GM INH ×2 (07:37→20:38)
[2018-03-02] MEDS: FOLIC ACID 1 MG TAB PO (09:45)
[2018-03-02] MEDS: ASPIRIN 81 MG ENTERIC TAB PO (09:45)
[2018-03-02] MEDS: OMEPRAZOLE 20 MG CAP PO ×2 (09:45→21:43)
[2018-03-02] MEDS: ESCITALOPRAM OXALATE 10 MG TAB (LEXAPRO) PO (09:45)
[2018-03-02] MEDS: RIVAROXABAN 10 MG TAB (XARELTO) PO (09:45)
[2018-03-02] MEDS: FAMOTIDINE 20 MG TAB PO (09:45)
[2018-03-02] MEDS: VITAMIN D 1,000 INTERNATIONAL UNITS TABLET PO (09:46)
[2018-03-02] MEDS: lamoTRIgine 100MG TAB PO (09:46)
[2018-03-02] MEDS: MIDODRINE 2.5 MG TAB PO (09:47)
[2018-03-02] MEDS: CLOTRIMAZOLE 1% TOPICAL CREAM 30GM TOP ×2 (09:48→21:44)
[2018-03-02] MEDS: MIDODRINE 5 MG TAB PO (15:54)
[2018-03-02] MEDS: SIMVASTATIN 20 MG TAB PO (21:42)
[2018-03-02] MEDS: traZODone 50 MG TAB PO (21:43)
[2018-03-03] MEDS: PERCOCET 5MG/325MG TAB PO ×3 (04:30→17:56)
[2018-03-03 06:55] LABS: HEMOGLOBIN 9.1 g/dl (12.0-15.5); MEAN CORPUSCULAR HEMOGLOBIN 26.6 pg (27.0-33.0); MEAN CORPUSCULAR HGB CONC 29.4 g/dl (32.0-36.5); MEAN CORPUSCULAR VOLUME 90.6 fl (80.0-96.0); PLATELET COUNT, AUTOMATED 204 10^3/uL (150-450); RED BLOOD COUNT 3.42 10^6/uL (4.00-5.40); RED CELL DISTRIBUTION WIDTH 15.4 % (11.5-14.5); WHITE BLOOD COUNT 4.1 10^3/uL (4.0-10.0)
[2018-03-03 07:08] LABS: ANION GAP 4 MEQ/L (8-16); BLOOD UREA NITROGEN 11 MG/DL (7-18); CALCIUM LEVEL 9.2 MG/DL (8.8-10.2); CARBON DIOXIDE LEVEL 35 MEQ/L (21-32); CHLORIDE LEVEL 100 MEQ/L (98-107); CREATININE FOR GFR 0.74 MG/DL (0.55-1.30); GLOMERULAR FILTRATION RATE > 60.0 (>45); GLUCOSE, FASTING 86 MG/DL (70-100); POTASSIUM SERUM 4.1 MEQ/L (3.5-5.1); SODIUM LEVEL 139 MEQ/L (136-145)
[2018-03-03] MEDS: IPRATROPIUM 0.5MG/ALBUTEROL 2.5MG INH SOL UD 3ML (DUONEB)(J7620) INH ×4 (07:39→20:01)
[2018-03-03] MEDS: SYMBICORT 160/4.5MCG INHALER 6GM INH ×2 (07:39→20:01)
[2018-03-03] MEDS: OMEPRAZOLE 20 MG CAP PO ×2 (09:30→22:07)
[2018-03-03] MEDS: lamoTRIgine 100MG TAB PO (09:30)
[2018-03-03] MEDS: ACETAMINOPHEN TAB 650MG DOSE (2X325MG) PO ×2 (09:31→18:00)
[2018-03-03] MEDS: RIVAROXABAN 10 MG TAB (XARELTO) PO (09:32)
[2018-03-03] MEDS: FOLIC ACID 1 MG TAB PO (09:32)
[2018-03-03] MEDS: VITAMIN D 1,000 INTERNATIONAL UNITS TABLET PO (09:32)
[2018-03-03] MEDS: FAMOTIDINE 20 MG TAB PO (09:32)
[2018-03-03] MEDS: ESCITALOPRAM OXALATE 10 MG TAB (LEXAPRO) PO ×2 (09:32→15:51)
[2018-03-03] MEDS: ASPIRIN 81 MG ENTERIC TAB PO (09:32)
[2018-03-03] MEDS: CLOTRIMAZOLE 1% TOPICAL CREAM 30GM TOP ×2 (09:33→22:07)
[2018-03-03] MEDS: MIDODRINE 5 MG TAB PO ×2 (09:33→15:51)
[2018-03-03] MEDS: ONDANSETRON 4 MG TAB (S0181) PO (18:01)
[2018-03-03] MEDS: traZODone 50 MG TAB PO (22:07)
[2018-03-03] MEDS: SIMVASTATIN 20 MG TAB PO (22:07)
[2018-03-04] MEDS: PERCOCET 5MG/325MG TAB PO ×4 (00:08→21:58)
[2018-03-04] MEDS: IPRATROPIUM 0.5MG/ALBUTEROL 2.5MG INH SOL UD 3ML (DUONEB)(J7620) INH ×4 (02:53→14:44)
[2018-03-04] MEDS: SYMBICORT 160/4.5MCG INHALER 6GM INH (07:17)
[2018-03-04] MEDS: FOLIC ACID 1 MG TAB PO (07:34)
[2018-03-04] MEDS: ASPIRIN 81 MG ENTERIC TAB PO (07:34)
[2018-03-04] MEDS: MIDODRINE 5 MG TAB PO ×2 (07:34→18:30)
[2018-03-04] MEDS: OMEPRAZOLE 20 MG CAP PO ×2 (07:35→21:57)
[2018-03-04] MEDS: lamoTRIgine 100MG TAB PO (07:35)
[2018-03-04] MEDS: ESCITALOPRAM OXALATE 10 MG TAB (LEXAPRO) PO (07:35)
[2018-03-04] MEDS: FAMOTIDINE 20 MG TAB PO (07:35)
[2018-03-04] MEDS: VITAMIN D 1,000 INTERNATIONAL UNITS TABLET PO (07:36)
[2018-03-04] MEDS: ONDANSETRON 4 MG TAB (S0181) PO ×2 (07:37→21:58)
[2018-03-04] MEDS: RIVAROXABAN 10 MG TAB (XARELTO) PO (07:37)
[2018-03-04] MEDS: CLOTRIMAZOLE 1% TOPICAL CREAM 30GM TOP ×2 (07:37→21:58)
[2018-03-04 08:17] LABS: HEMATOCRIT 33.4 % (36.0-47.0); HEMOGLOBIN 9.9 g/dl (12.0-15.5); MEAN CORPUSCULAR HEMOGLOBIN 26.6 pg (27.0-33.0); MEAN CORPUSCULAR HGB CONC 29.6 g/dl (32.0-36.5); MEAN CORPUSCULAR VOLUME 89.8 fl (80.0-96.0); PLATELET COUNT, AUTOMATED 226 10^3/uL (150-450); RED BLOOD COUNT 3.72 10^6/uL (4.00-5.40); RED CELL DISTRIBUTION WIDTH 15.3 % (11.5-14.5); WHITE BLOOD COUNT 4.7 10^3/uL (4.0-10.0)
[2018-03-04 08:47] LABS: ANION GAP 7 MEQ/L (8-16); BLOOD UREA NITROGEN 9 MG/DL (7-18); CALCIUM LEVEL 9.3 MG/DL (8.8-10.2); CARBON DIOXIDE LEVEL 33 MEQ/L (21-32); CHLORIDE LEVEL 101 MEQ/L (98-107); CREATININE FOR GFR 0.76 MG/DL (0.55-1.30); GLOMERULAR FILTRATION RATE > 60.0 (>45); GLUCOSE, FASTING 92 MG/DL (70-100); SODIUM LEVEL 141 MEQ/L (136-145)
[2018-03-04] MEDS: SIMVASTATIN 20 MG TAB PO (21:57)
[2018-03-04] MEDS: traZODone 50 MG TAB PO (21:57)
[2018-03-05] MEDS: IPRATROPIUM 0.5MG/ALBUTEROL 2.5MG INH SOL UD 3ML (DUONEB)(J7620) INH ×5 (02:39→21:52)
[2018-03-05] MEDS: SYMBICORT 160/4.5MCG INHALER 6GM INH ×3 (02:40→21:48)
[2018-03-05] MEDS: ONDANSETRON 4 MG TAB (S0181) PO ×2 (05:26→19:42)
[2018-03-05] MEDS: PERCOCET 5MG/325MG TAB PO ×4 (05:26→23:55)
[2018-03-05] MEDS: CLOTRIMAZOLE 1% TOPICAL CREAM 30GM TOP ×2 (09:00→21:03)
[2018-03-05] MEDS: MIDODRINE 5 MG TAB PO ×2 (09:19→16:24)
[2018-03-05] MEDS: FAMOTIDINE 20 MG TAB PO (09:19)
[2018-03-05] MEDS: VITAMIN D 1,000 INTERNATIONAL UNITS TABLET PO (09:19)
[2018-03-05] MEDS: FOLIC ACID 1 MG TAB PO (09:19)
[2018-03-05] MEDS: ESCITALOPRAM OXALATE 10 MG TAB (LEXAPRO) PO (09:19)
[2018-03-05] MEDS: ASPIRIN 81 MG ENTERIC TAB PO (09:19)
[2018-03-05] MEDS: RIVAROXABAN 10 MG TAB (XARELTO) PO (09:19)
[2018-03-05] MEDS: OMEPRAZOLE 20 MG CAP PO ×2 (09:19→21:02)
[2018-03-05] MEDS: lamoTRIgine 100MG TAB PO (09:20)
[2018-03-05 10:45] LABS: HEMOGLOBIN 9.6 g/dl (12.0-15.5); MEAN CORPUSCULAR HEMOGLOBIN 26.7 pg (27.0-33.0); MEAN CORPUSCULAR VOLUME 88.9 fl (80.0-96.0); PLATELET COUNT, AUTOMATED 235 10^3/uL (150-450); RED CELL DISTRIBUTION WIDTH 15.1 % (11.5-14.5); WHITE BLOOD COUNT 6.3 10^3/uL (4.0-10.0)
[2018-03-05 11:11] LABS: ANION GAP 5 MEQ/L (8-16); BLOOD UREA NITROGEN 9 MG/DL (7-18); CALCIUM LEVEL 8.9 MG/DL (8.8-10.2); CARBON DIOXIDE LEVEL 35 MEQ/L (21-32); CHLORIDE LEVEL 101 MEQ/L (98-107); CREATININE FOR GFR 0.78 MG/DL (0.55-1.30); GLOMERULAR FILTRATION RATE > 60.0 (>45); GLUCOSE, FASTING 86 MG/DL (70-100); POTASSIUM SERUM 4.3 MEQ/L (3.5-5.1); SODIUM LEVEL 141 MEQ/L (136-145)
[2018-03-05] MEDS: traZODone 50 MG TAB PO (21:02)
[2018-03-05] MEDS: SIMVASTATIN 20 MG TAB PO (21:02)
[2018-03-06] MEDS: ONDANSETRON 4 MG TAB (S0181) PO ×3 (06:48→22:18)
[2018-03-06] MEDS: PERCOCET 5MG/325MG TAB PO ×3 (06:48→22:19)
[2018-03-06 07:19] LABS: HEMATOCRIT 30.5 % (36.0-47.0); HEMOGLOBIN 9.2 g/dl (12.0-15.5); MEAN CORPUSCULAR HEMOGLOBIN 26.9 pg (27.0-33.0); MEAN CORPUSCULAR HGB CONC 30.2 g/dl (32.0-36.5); MEAN CORPUSCULAR VOLUME 89.2 fl (80.0-96.0); PLATELET COUNT, AUTOMATED 242 10^3/uL (150-450); RED BLOOD COUNT 3.42 10^6/uL (4.00-5.40); RED CELL DISTRIBUTION WIDTH 15.2 % (11.5-14.5); WHITE BLOOD COUNT 4.7 10^3/uL (4.0-10.0)
[2018-03-06 07:25] LABS: ANION GAP 5 MEQ/L (8-16); BLOOD UREA NITROGEN 8 MG/DL (7-18); CALCIUM LEVEL 9.3 MG/DL (8.8-10.2); CARBON DIOXIDE LEVEL 33 MEQ/L (21-32); CHLORIDE LEVEL 102 MEQ/L (98-107); CREATININE FOR GFR 0.74 MG/DL (0.55-1.30); GLOMERULAR FILTRATION RATE > 60.0 (>45); GLUCOSE, FASTING 83 MG/DL (70-100); POTASSIUM SERUM 4.1 MEQ/L (3.5-5.1); SODIUM LEVEL 140 MEQ/L (136-145)
[2018-03-06] MEDS: IPRATROPIUM 0.5MG/ALBUTEROL 2.5MG INH SOL UD 3ML (DUONEB)(J7620) INH ×3 (08:34→21:33)
[2018-03-06] MEDS: SYMBICORT 160/4.5MCG INHALER 6GM INH ×2 (08:35→21:33)
[2018-03-06] MEDS: MIDODRINE 5 MG TAB PO ×2 (08:42→16:51)
[2018-03-06] MEDS: FAMOTIDINE 20 MG TAB PO (09:04)
[2018-03-06] MEDS: OMEPRAZOLE 20 MG CAP PO ×2 (09:05→22:19)
[2018-03-06] MEDS: FOLIC ACID 1 MG TAB PO (09:05)
[2018-03-06] MEDS: VITAMIN D 1,000 INTERNATIONAL UNITS TABLET PO (09:05)
[2018-03-06] MEDS: ASPIRIN 81 MG ENTERIC TAB PO (09:05)
[2018-03-06] MEDS: RIVAROXABAN 10 MG TAB (XARELTO) PO (09:06)
[2018-03-06] MEDS: lamoTRIgine 100MG TAB PO (09:06)
[2018-03-06] MEDS: ESCITALOPRAM OXALATE 10 MG TAB (LEXAPRO) PO (09:06)
[2018-03-06] MEDS: CLOTRIMAZOLE 1% TOPICAL CREAM 30GM TOP ×2 (09:07→22:20)
[2018-03-06] MEDS: SIMVASTATIN 20 MG TAB PO (22:19)
[2018-03-06] MEDS: traZODone 50 MG TAB PO (22:20)
[2018-03-07] MEDS: PERCOCET 5MG/325MG TAB PO ×3 (05:49→18:15)
[2018-03-07] MEDS: ONDANSETRON 4 MG TAB (S0181) PO ×3 (05:51→18:14)
[2018-03-07] MEDS: SYMBICORT 160/4.5MCG INHALER 6GM INH ×2 (08:13→20:27)
[2018-03-07] MEDS: ESCITALOPRAM OXALATE 10 MG TAB (LEXAPRO) PO (08:39)
[2018-03-07] MEDS: FOLIC ACID 1 MG TAB PO (08:39)
[2018-03-07] MEDS: CLOTRIMAZOLE 1% TOPICAL CREAM 30GM TOP ×2 (08:39→22:29)
[2018-03-07] MEDS: OMEPRAZOLE 20 MG CAP PO ×2 (08:40→22:29)
[2018-03-07] MEDS: RIVAROXABAN 10 MG TAB (XARELTO) PO (08:40)
[2018-03-07] MEDS: MIDODRINE 5 MG TAB PO ×2 (08:40→16:45)
[2018-03-07] MEDS: FAMOTIDINE 20 MG TAB PO (08:41)
[2018-03-07] MEDS: VITAMIN D 1,000 INTERNATIONAL UNITS TABLET PO (08:41)
[2018-03-07] MEDS: ASPIRIN 81 MG ENTERIC TAB PO (08:41)
[2018-03-07] MEDS: lamoTRIgine 100MG TAB PO (08:42)
[2018-03-07] MEDS: IPRATROPIUM 0.5MG/ALBUTEROL 2.5MG INH SOL UD 3ML (DUONEB)(J7620) INH ×2 (15:31→20:27)
[2018-03-07] MEDS: traZODone 50 MG TAB PO (22:29)
[2018-03-07] MEDS: SIMVASTATIN 20 MG TAB PO (22:29)
[2018-03-08] MEDS: ONDANSETRON 4 MG TAB (S0181) PO ×3 (00:23→16:48)
[2018-03-08] MEDS: PERCOCET 5MG/325MG TAB PO ×4 (00:24→19:01)
[2018-03-08] MEDS: SYMBICORT 160/4.5MCG INHALER 6GM INH ×2 (07:52→19:53)
[2018-03-08] MEDS: VITAMIN D 1,000 INTERNATIONAL UNITS TABLET PO (08:21)
[2018-03-08] MEDS: FAMOTIDINE 20 MG TAB PO (08:21)
[2018-03-08] MEDS: CLOTRIMAZOLE 1% TOPICAL CREAM 30GM TOP ×2 (08:21→21:56)
[2018-03-08] MEDS: ESCITALOPRAM OXALATE 10 MG TAB (LEXAPRO) PO (08:22)
[2018-03-08] MEDS: MIDODRINE 5 MG TAB PO ×2 (08:22→15:28)
[2018-03-08] MEDS: OMEPRAZOLE 20 MG CAP PO ×2 (08:23→21:56)
[2018-03-08] MEDS: lamoTRIgine 100MG TAB PO (08:23)
[2018-03-08] MEDS: FOLIC ACID 1 MG TAB PO (08:24)
[2018-03-08] MEDS: RIVAROXABAN 10 MG TAB (XARELTO) PO (08:24)
[2018-03-08] MEDS: ASPIRIN 81 MG ENTERIC TAB PO (08:24)
[2018-03-08] MEDS: IPRATROPIUM 0.5MG/ALBUTEROL 2.5MG INH SOL UD 3ML (DUONEB)(J7620) INH ×2 (17:24→23:22)
[2018-03-08] MEDS: SIMETHICONE 80 MG CHEW TAB PO (19:00)
[2018-03-08] MEDS: SIMVASTATIN 20 MG TAB PO (21:56)
[2018-03-08] MEDS: traZODone 50 MG TAB PO (21:56)
[2018-03-09] MEDS: PERCOCET 5MG/325MG TAB PO ×4 (01:31→20:55)
[2018-03-09] MEDS: SYMBICORT 160/4.5MCG INHALER 6GM INH ×2 (07:44→20:04)
[2018-03-09] MEDS: IPRATROPIUM 0.5MG/ALBUTEROL 2.5MG INH SOL UD 3ML (DUONEB)(J7620) INH ×4 (07:44→23:15)
[2018-03-09] MEDS: OMEPRAZOLE 20 MG CAP PO ×2 (07:58→20:56)
[2018-03-09] MEDS: ESCITALOPRAM OXALATE 10 MG TAB (LEXAPRO) PO (07:58)
[2018-03-09] MEDS: ASPIRIN 81 MG ENTERIC TAB PO (07:58)
[2018-03-09] MEDS: FAMOTIDINE 20 MG TAB PO (07:59)
[2018-03-09] MEDS: FOLIC ACID 1 MG TAB PO (07:59)
[2018-03-09] MEDS: VITAMIN D 1,000 INTERNATIONAL UNITS TABLET PO (07:59)
[2018-03-09] MEDS: lamoTRIgine 100MG TAB PO (07:59)
[2018-03-09] MEDS: MIDODRINE 5 MG TAB PO ×2 (07:59→15:20)
[2018-03-09] MEDS: RIVAROXABAN 10 MG TAB (XARELTO) PO (07:59)
[2018-03-09] MEDS: CLOTRIMAZOLE 1% TOPICAL CREAM 30GM TOP ×2 (08:01→20:57)
[2018-03-09] MEDS: ONDANSETRON 4 MG TAB (S0181) PO (11:51)
[2018-03-09] MEDS: ALPRAZolam 0.5 MG TAB PO (12:20)
[2018-03-09] MEDS: SIMVASTATIN 20 MG TAB PO (20:56)
[2018-03-09] MEDS: traZODone 50 MG TAB PO (20:56)
[2018-03-10] MEDS: PERCOCET 5MG/325MG TAB PO ×4 (03:15→22:31)
[2018-03-10] MEDS: IPRATROPIUM 0.5MG/ALBUTEROL 2.5MG INH SOL UD 3ML (DUONEB)(J7620) INH (03:49)
[2018-03-10] MEDS: SYMBICORT 160/4.5MCG INHALER 6GM INH ×2 (07:33→19:40)
[2018-03-10 08:08] LABS: HEMATOCRIT 30.4 % (36.0-47.0); MEAN CORPUSCULAR HEMOGLOBIN 26.9 pg (27.0-33.0); MEAN CORPUSCULAR HGB CONC 29.6 g/dl (32.0-36.5); MEAN CORPUSCULAR VOLUME 90.7 fl (80.0-96.0); PLATELET COUNT, AUTOMATED 234 10^3/uL (150-450); RED BLOOD COUNT 3.35 10^6/uL (4.00-5.40); RED CELL DISTRIBUTION WIDTH 15.5 % (11.5-14.5); WHITE BLOOD COUNT 6.1 10^3/uL (4.0-10.0)
[2018-03-10 08:29] LABS: ANION GAP 7 MEQ/L (8-16); BLOOD UREA NITROGEN 11 MG/DL (7-18); CALCIUM LEVEL 8.2 MG/DL (8.8-10.2); CARBON DIOXIDE LEVEL 33 MEQ/L (21-32); CHLORIDE LEVEL 102 MEQ/L (98-107); CREATININE FOR GFR 0.87 MG/DL (0.55-1.30); GLOMERULAR FILTRATION RATE > 60.0 (>45); GLUCOSE, FASTING 81 MG/DL (70-100); SODIUM LEVEL 142 MEQ/L (136-145)
[2018-03-10] MEDS: ONDANSETRON 4 MG TAB (S0181) PO ×2 (10:14→16:23)
[2018-03-10] MEDS: ESCITALOPRAM OXALATE 10 MG TAB (LEXAPRO) PO (10:14)
[2018-03-10] MEDS: SIMETHICONE 80 MG CHEW TAB PO ×2 (10:15→16:22)
[2018-03-10] MEDS: ASPIRIN 81 MG ENTERIC TAB PO (10:15)
[2018-03-10] MEDS: MIDODRINE 5 MG TAB PO ×2 (10:15→16:23)
[2018-03-10] MEDS: FOLIC ACID 1 MG TAB PO (10:16)
[2018-03-10] MEDS: lamoTRIgine 100MG TAB PO (10:16)
[2018-03-10] MEDS: FAMOTIDINE 20 MG TAB PO (10:16)
[2018-03-10] MEDS: OMEPRAZOLE 20 MG CAP PO ×2 (10:16→21:10)
[2018-03-10] MEDS: CLOTRIMAZOLE 1% TOPICAL CREAM 30GM TOP ×2 (10:17→21:10)
[2018-03-10] MEDS: VITAMIN D 1,000 INTERNATIONAL UNITS TABLET PO (10:17)
[2018-03-10] MEDS: RIVAROXABAN 10 MG TAB (XARELTO) PO (10:17)
[2018-03-10] MEDS: ALPRAZolam 0.5 MG TAB PO (12:21)
[2018-03-10] MEDS: SIMVASTATIN 20 MG TAB PO (21:10)
[2018-03-10] MEDS: traZODone 50 MG TAB PO (21:10)
[2018-03-11] MEDS: PERCOCET 5MG/325MG TAB PO ×4 (04:51→23:20)
[2018-03-11] MEDS: SYMBICORT 160/4.5MCG INHALER 6GM INH ×2 (09:36→19:55)
[2018-03-11] MEDS: MIDODRINE 5 MG TAB PO ×2 (09:46→17:08)
[2018-03-11] MEDS: ASPIRIN 81 MG ENTERIC TAB PO (09:46)
[2018-03-11] MEDS: ESCITALOPRAM OXALATE 10 MG TAB (LEXAPRO) PO (09:47)
[2018-03-11] MEDS: OMEPRAZOLE 20 MG CAP PO ×2 (09:47→21:34)
[2018-03-11] MEDS: VITAMIN D 1,000 INTERNATIONAL UNITS TABLET PO (09:47)
[2018-03-11] MEDS: FAMOTIDINE 20 MG TAB PO (09:47)
[2018-03-11] MEDS: lamoTRIgine 100MG TAB PO (09:47)
[2018-03-11] MEDS: RIVAROXABAN 10 MG TAB (XARELTO) PO (09:47)
[2018-03-11] MEDS: FOLIC ACID 1 MG TAB PO (09:48)
[2018-03-11] MEDS: CLOTRIMAZOLE 1% TOPICAL CREAM 30GM TOP ×2 (09:48→21:35)
[2018-03-11] MEDS: ALPRAZolam 0.5 MG TAB PO (11:02)
[2018-03-11] MEDS: IPRATROPIUM 0.5MG/ALBUTEROL 2.5MG INH SOL UD 3ML (DUONEB)(J7620) INH (12:58)
[2018-03-11] MEDS: ONDANSETRON 4 MG TAB (S0181) PO (17:08)
[2018-03-11] MEDS: SIMVASTATIN 20 MG TAB PO (21:34)
[2018-03-11] MEDS: traZODone 50 MG TAB PO (21:34)
[2018-03-12] MEDS: IPRATROPIUM 0.5MG/ALBUTEROL 2.5MG INH SOL UD 3ML (DUONEB)(J7620) INH ×4 (05:02→22:57)
[2018-03-12] MEDS: PERCOCET 5MG/325MG TAB PO ×4 (05:20→23:23)
[2018-03-12] MEDS: ESCITALOPRAM OXALATE 10 MG TAB (LEXAPRO) PO (08:38)
[2018-03-12] MEDS: OMEPRAZOLE 20 MG CAP PO ×2 (08:38→20:43)
[2018-03-12] MEDS: RIVAROXABAN 10 MG TAB (XARELTO) PO (08:39)
[2018-03-12] MEDS: FOLIC ACID 1 MG TAB PO (08:39)
[2018-03-12] MEDS: FAMOTIDINE 20 MG TAB PO (08:39)
[2018-03-12] MEDS: MIDODRINE 5 MG TAB PO ×2 (08:39→15:12)
[2018-03-12] MEDS: ASPIRIN 81 MG ENTERIC TAB PO (08:39)
[2018-03-12] MEDS: VITAMIN D 1,000 INTERNATIONAL UNITS TABLET PO (08:39)
[2018-03-12] MEDS: lamoTRIgine 100MG TAB PO (08:39)
[2018-03-12] MEDS: CLOTRIMAZOLE 1% TOPICAL CREAM 30GM TOP ×2 (08:40→20:44)
[2018-03-12] MEDS: SYMBICORT 160/4.5MCG INHALER 6GM INH ×2 (09:00→19:34)
[2018-03-12] MEDS: ALPRAZolam 0.5 MG TAB PO (11:10)
[2018-03-12] MEDS: traZODone 50 MG TAB PO (20:43)
[2018-03-12] MEDS: SIMVASTATIN 20 MG TAB PO (20:43)
[2018-03-13] MEDS: IPRATROPIUM 0.5MG/ALBUTEROL 2.5MG INH SOL UD 3ML (DUONEB)(J7620) INH ×6 (03:03→23:48)
[2018-03-13] MEDS: PERCOCET 5MG/325MG TAB PO ×4 (05:32→23:50)
[2018-03-13] MEDS: SYMBICORT 160/4.5MCG INHALER 6GM INH ×2 (07:13→20:19)
[2018-03-13] MEDS: MIDODRINE 5 MG TAB PO ×2 (09:46→15:35)
[2018-03-13] MEDS: ASPIRIN 81 MG ENTERIC TAB PO (09:47)
[2018-03-13] MEDS: lamoTRIgine 100MG TAB PO (09:47)
[2018-03-13] MEDS: ESCITALOPRAM OXALATE 10 MG TAB (LEXAPRO) PO (09:47)
[2018-03-13] MEDS: FOLIC ACID 1 MG TAB PO (09:47)
[2018-03-13] MEDS: RIVAROXABAN 10 MG TAB (XARELTO) PO (09:47)
[2018-03-13] MEDS: VITAMIN D 1,000 INTERNATIONAL UNITS TABLET PO (09:48)
[2018-03-13] MEDS: FAMOTIDINE 20 MG TAB PO (09:48)
[2018-03-13] MEDS: CLOTRIMAZOLE 1% TOPICAL CREAM 30GM TOP ×2 (09:48→20:32)
[2018-03-13] MEDS: OMEPRAZOLE 20 MG CAP PO ×2 (09:48→20:11)
[2018-03-13] MEDS: ALPRAZolam 0.5 MG TAB PO (11:28)
[2018-03-13] MEDS: traZODone 50 MG TAB PO (20:11)
[2018-03-13] MEDS: SIMVASTATIN 20 MG TAB PO (20:11)
[2018-03-14] MEDS: IPRATROPIUM 0.5MG/ALBUTEROL 2.5MG INH SOL UD 3ML (DUONEB)(J7620) INH ×3 (05:00→11:18)
[2018-03-14] MEDS: PERCOCET 5MG/325MG TAB PO ×2 (05:50→11:57)
[2018-03-14] MEDS: SYMBICORT 160/4.5MCG INHALER 6GM INH (07:08)
[2018-03-14] MEDS: FAMOTIDINE 20 MG TAB PO (08:42)
[2018-03-14] MEDS: VITAMIN D 1,000 INTERNATIONAL UNITS TABLET PO (08:43)
[2018-03-14] MEDS: FOLIC ACID 1 MG TAB PO (08:43)
[2018-03-14] MEDS: ASPIRIN 81 MG ENTERIC TAB PO (08:43)
[2018-03-14] MEDS: lamoTRIgine 100MG TAB PO (08:44)
[2018-03-14] MEDS: ESCITALOPRAM OXALATE 10 MG TAB (LEXAPRO) PO (08:44)
[2018-03-14] MEDS: OMEPRAZOLE 20 MG CAP PO (08:45)
[2018-03-14] MEDS: RIVAROXABAN 10 MG TAB (XARELTO) PO (08:45)
[2018-03-14] MEDS: MIDODRINE 5 MG TAB PO (08:46)
[2018-03-14] MEDS: CLOTRIMAZOLE 1% TOPICAL CREAM 30GM TOP (08:46)
[2018-03-14] MEDS: ALPRAZolam 0.5 MG TAB PO (11:57)
== END 2018-03-14 12:50 | disposition home health service (06) | DRG 342 ==
LOC: M ED 22:56 → M ED INP 02-23 02:43 → M MS5PR 02-23 13:40
DX: S92.324A Nondisplaced fracture of second metatarsal bone, right foot, initial encounter for closed fracture (principal); I11.0 Hypertensive heart disease with heart failure; I50.32 Chronic diastolic (congestive) heart failure; I95.9 Hypotension, unspecified; I27.20 Pulmonary hypertension, unspecified; J44.9 Chronic obstructive pulmonary disease, unspecified; E78.00 Pure hypercholesterolemia, unspecified; F32.9 Major depressive disorder, single episode, unspecified; R53.1 Weakness; F41.9 Anxiety disorder, unspecified; R26.89 Other abnormalities of gait and mobility; R29.6 Repeated falls; K21.9 Gastro-esophageal reflux disease without esophagitis; M50.30 Other cervical disc degeneration, unspecified cervical region; Z79.82 Long term (current) use of aspirin; Z79.01 Long term (current) use of anticoagulants; Z79.899 Other long term (current) drug therapy; Z96.641 Presence of right artificial hip joint; Z86.711 Personal history of pulmonary embolism; Z79.891 Long term (current) use of opiate analgesic; Z86.718 Personal history of other venous thrombosis and embolism; E86.0 Dehydration; S93.401A Sprain of unspecified ligament of right ankle, initial encounter; W18.09XA Striking against other object with subsequent fall, initial encounter; Y92.009 Unspecified place in unspecified non-institutional (private) residence as the place of occurrence of the external cause; G89.4 Chronic pain syndrome; F45.8 Other somatoform disorders; S92.334A Nondisplaced fracture of third metatarsal bone, right foot, initial encounter for closed fracture; S92.344A Nondisplaced fracture of fourth metatarsal bone, right foot, initial encounter for closed fracture

== ENCOUNTER 2018-04-11 10:07 | Inpatient (IN) | payer OTHER ==
[2018-04-11 10:41] LABS: BASO % 0.1 % (0.0-1.0); EOS # 0.3 10^3/uL (0.0-0.50); EOS % 1.8 % (0.0-3.0); HEMATOCRIT 32.9 % (36.0-47.0); HEMOGLOBIN 9.8 g/dl (12.0-15.5); IMMATURE GRANULOCYTE % 0.4 % (0-3.0); LYMPH # 1.7 10^3/uL (1.5-4.5); LYMPH % 10.8 % (24.0-44.0); MEAN CORPUSCULAR HEMOGLOBIN 26.4 pg (27.0-33.0); MEAN CORPUSCULAR HGB CONC 29.8 g/dl (32.0-36.5); MEAN CORPUSCULAR VOLUME 88.7 fl (80.0-96.0); MONO # 0.9 10^3/uL (0.0-0.8); MONO % 5.9 % (0.0-5.0); NEUTROPHILS # 12.7 10^3/uL (1.8-7.7); PLATELET COUNT, AUTOMATED 261 10^3/uL (150-450); RED BLOOD COUNT 3.71 10^6/uL (4.00-5.40); RED CELL DISTRIBUTION WIDTH 14.2 % (11.5-14.5); WHITE BLOOD COUNT 15.7 10^3/uL (4.0-10.0)
[2018-04-11 10:55] LABS: PARTIAL THROMBOPLASTIN TIME 34.3 SECONDS (25.4-37.6); PROTHROMBIN TIME 14.3 SECONDS (12.1-14.4)
[2018-04-11 11:18] LABS: ALBUMIN/GLOBULIN RATIO 0.79 (1.00-1.93); ALKALINE PHOSPHATASE 100 U/L (45-117); ALT/SGPT 13 U/L (12-78); ANION GAP 3 MEQ/L (8-16); AST/SGOT 16 U/L (7-37); BILIRUBIN,DIRECT 0.1 MG/DL (0.0-0.2); BILIRUBIN,TOTAL 0.4 MG/DL (0.2-1.0); BLOOD UREA NITROGEN 11 MG/DL (7-18); CALCIUM LEVEL 9.4 MG/DL (8.8-10.2); CARBON DIOXIDE LEVEL 37 MEQ/L (21-32); CHLORIDE LEVEL 98 MEQ/L (98-107); CK-MB VALUE MASS < 1.0 NG/ML (<3.6); CPK CREATINE PHOSPHOKINASE 37 U/L (26-192); CREATININE FOR GFR 0.81 MG/DL (0.55-1.30); FREE T4 1.16 NG/DL (0.76-1.46); GLOMERULAR FILTRATION RATE > 60.0 (>45); GLUCOSE, FASTING 107 MG/DL (70-100); LIPASE 60 U/L (73-393); NT-PRO BNP 261 PG/ML (<125); POTASSIUM SERUM 4.2 MEQ/L (3.5-5.1); SODIUM LEVEL 138 MEQ/L (136-145); THYROID STIMULATING HORMONE 0.663 uIU/ML (0.358-3.740); TOTAL PROTEIN 6.8 GM/DL (6.4-8.2); TROPONIN I < 0.02 NG/ML (< 0.10)
[2018-04-11] MEDS ORDERED: ISOVUE-370 76% 100ML VIAL (Q9967) As Ordered (12:40)
[2018-04-11] MEDS ORDERED: methylPREDNISolone INJ 125 MG/2 ML VIAL (J2930) IV ×2 (12:45→14:15)
[2018-04-11] MEDS: ACETAMINOPHEN TAB 650MG DOSE (2X325MG) PO ×2 (12:45→13:10)
[2018-04-11 13:07] LABS: D-DIMER QUANT 436.5 ng/ml (<500)
[2018-04-11] MEDS: predniSONE 20 MG TAB PO ×2 (13:10→21:35)
[2018-04-11] MEDS: IPRATROPIUM 0.5MG/ALBUTEROL 2.5MG INH SOL UD 3ML (DUONEB)(J7620) NEB ×4 (13:13→20:39)
[2018-04-11] MEDS: NS 500 ML IV (14:20)
[2018-04-11 14:25] LABS: ABG BASE EXCESS 3.8 (-2.0-2.0); ABG HCO3 32.1 MEQ/L (22.0-26.0); ABG O2 SATURATION 99.8 % (95.0-99.0); ABG PARTIAL PRESSURE O2 232.7 mmHg (75.0-100.0); ABG STANDARD HCO3 27.9 MEQ/L (22.0-26.0); ABG TOTAL CO2 34.3 MEQ/L (23.0-31.0); ABG pH (ARTERIAL) 7.273 UNITS (7.350-7.450)
[2018-04-11 14:28] LABS: ABG PARTIAL PRESSURE CO2 71.1 mmHg (35.0-45.0)
[2018-04-11] MEDS: MIDODRINE 5 MG TAB PO (14:50)
[2018-04-11 15:04] LABS: LACTIC ACID SEPSIS PROTOCOL 0.7 MMOL/L (0.4-2.0)
[2018-04-11] MEDS: PANTOPRAZOLE 40MG INJ (PROTONIX) (C9113) IV (15:42)
[2018-04-11 16:48] LABS: CPK CREATINE PHOSPHOKINASE 44 U/L (26-192); MB/CK RELATIVE INDEX 3.64 (< OR =4); TROPONIN I < 0.02 NG/ML (< 0.10)
[2018-04-11] MEDS ORDERED: NITROGLYCERIN 0.4 MG SUBL TABLET SL (17:00)
[2018-04-11] MEDS ORDERED: SENNA 8.6 MG TAB (SENOKOT) PO (17:00)
[2018-04-11] MEDS: PERCOCET 5MG/325MG TAB PO ×2 (17:16→21:36)
[2018-04-11] MEDS: DOXYCYCLINE HYCLATE 100 MG in D5W MINI-BAG PLUS 100 ML IV (18:33)
[2018-04-11] MEDS: FORMOTEROL FUMARATE 20 MCG/2 ML INHALATION SOLUTION (PERFOROMIST) INH (20:39)
[2018-04-11] MEDS: OMEPRAZOLE 20 MG CAP PO (21:34)
[2018-04-11] MEDS: traZODone 50 MG TAB PO (21:34)
[2018-04-11] MEDS: SIMVASTATIN 20 MG TAB PO (21:34)
[2018-04-11] MEDS: ONDANSETRON 4MG/2ML VIAL (J2405) IV (21:36)
[2018-04-11 22:57] LABS: CPK CREATINE PHOSPHOKINASE 46 U/L (26-192); MB/CK RELATIVE INDEX 3.48 (< OR =4); TROPONIN I < 0.02 NG/ML (< 0.10)
[2018-04-12] MEDS: IPRATROPIUM 0.5MG/ALBUTEROL 2.5MG INH SOL UD 3ML (DUONEB)(J7620) NEB ×5 (02:17→20:00)
[2018-04-12] MEDS: PERCOCET 5MG/325MG TAB PO ×5 (03:29→21:22)
[2018-04-12] MEDS: DOXYCYCLINE HYCLATE 100 MG in D5W MINI-BAG PLUS 100 ML IV ×2 (03:38→15:54)
[2018-04-12 06:50] LABS: HEMATOCRIT 30.6 % (36.0-47.0); HEMOGLOBIN 9.2 g/dl (12.0-15.5); IMMATURE GRANULOCYTE % 0.3 % (0-3.0); LYMPH # 0.6 10^3/uL (1.5-4.5); LYMPH % 8.6 % (24.0-44.0); MEAN CORPUSCULAR HEMOGLOBIN 26.2 pg (27.0-33.0); MEAN CORPUSCULAR HGB CONC 30.1 g/dl (32.0-36.5); MEAN CORPUSCULAR VOLUME 87.2 fl (80.0-96.0); MONO # 0.1 10^3/uL (0.0-0.8); MONO % 1.6 % (0.0-5.0); NEUTROPHILS % 89.5 % (36.0-66.0); PLATELET COUNT, AUTOMATED 194 10^3/uL (150-450); RED BLOOD COUNT 3.51 10^6/uL (4.00-5.40); RED CELL DISTRIBUTION WIDTH 13.9 % (11.5-14.5); WHITE BLOOD COUNT 6.7 10^3/uL (4.0-10.0)
[2018-04-12 07:22] LABS: ALBUMIN 2.5 GM/DL (3.2-5.2); ALBUMIN/GLOBULIN RATIO 0.61 (1.00-1.93); ALKALINE PHOSPHATASE 83 U/L (45-117); ALT/SGPT 12 U/L (12-78); ANION GAP 3 MEQ/L (8-16); AST/SGOT 12 U/L (7-37); BILIRUBIN,TOTAL 0.3 MG/DL (0.2-1.0); BLOOD UREA NITROGEN 16 MG/DL (7-18); CALCIUM LEVEL 8.8 MG/DL (8.8-10.2); CARBON DIOXIDE LEVEL 35 MEQ/L (21-32); CHLORIDE LEVEL 99 MEQ/L (98-107); CREATININE FOR GFR 0.78 MG/DL (0.55-1.30); GLOMERULAR FILTRATION RATE > 60.0 (>45); GLUCOSE, FASTING 139 MG/DL (70-100); MAGNESIUM LEVEL 2.1 MG/DL (1.8-2.4); POTASSIUM SERUM 4.5 MEQ/L (3.5-5.1); SODIUM LEVEL 137 MEQ/L (136-145); TOTAL PROTEIN 6.6 GM/DL (6.4-8.2)
[2018-04-12] MEDS: FORMOTEROL FUMARATE 20 MCG/2 ML INHALATION SOLUTION (PERFOROMIST) INH ×2 (07:27→20:45)
[2018-04-12] MEDS: PANTOPRAZOLE 40MG INJ (PROTONIX) (C9113) IV (08:09)
[2018-04-12] MEDS: FAMOTIDINE 20 MG TAB PO (08:09)
[2018-04-12] MEDS: predniSONE 20 MG TAB PO ×2 (08:10→21:20)
[2018-04-12] MEDS: MIDODRINE 5 MG TAB PO ×2 (08:10→15:55)
[2018-04-12] MEDS: RIVAROXABAN 10 MG TAB (XARELTO) PO (08:10)
[2018-04-12] MEDS: OMEPRAZOLE 20 MG CAP PO ×2 (08:10→21:20)
[2018-04-12] MEDS: ESCITALOPRAM OXALATE 10 MG TAB (LEXAPRO) PO (08:10)
[2018-04-12] MEDS: FOLIC ACID 1 MG TAB PO (08:10)
[2018-04-12] MEDS: VITAMIN D 1,000 INTERNATIONAL UNITS TABLET PO (08:10)
[2018-04-12] MEDS: ASPIRIN 81 MG ENTERIC TAB PO (08:11)
[2018-04-12] MEDS: ALPRAZolam 0.5 MG TAB PO (10:11)
[2018-04-12] MEDS ORDERED: SLF 3 ML SYR IV (11:15)
[2018-04-12] MEDS: SLF 3 ML SYR IV (14:12)
[2018-04-12] MEDS: traZODone 50 MG TAB PO (21:20)
[2018-04-12] MEDS: SIMVASTATIN 20 MG TAB PO (21:20)
[2018-04-13] MEDS: IPRATROPIUM 0.5MG/ALBUTEROL 2.5MG INH SOL UD 3ML (DUONEB)(J7620) NEB ×4 (02:24→20:00)
[2018-04-13] MEDS: PERCOCET 5MG/325MG TAB PO ×6 (02:31→23:02)
[2018-04-13] MEDS: SLF 3 ML SYR IV ×4 (02:32→21:38)
[2018-04-13] MEDS: DOXYCYCLINE HYCLATE 100 MG in D5W MINI-BAG PLUS 100 ML IV (04:44)
[2018-04-13 07:03] LABS: BASO % 0.1 % (0.0-1.0); HEMOGLOBIN 8.7 g/dl (12.0-15.5); IMMATURE GRANULOCYTE % 0.5 % (0-3.0); LYMPH # 0.5 10^3/uL (1.5-4.5); LYMPH % 5.4 % (24.0-44.0); MEAN CORPUSCULAR HEMOGLOBIN 26.4 pg (27.0-33.0); MEAN CORPUSCULAR VOLUME 88.1 fl (80.0-96.0); MONO # 0.3 10^3/uL (0.0-0.8); MONO % 2.8 % (0.0-5.0); NEUTROPHILS # 8.4 10^3/uL (1.8-7.7); NEUTROPHILS % 91.2 % (36.0-66.0); PLATELET COUNT, AUTOMATED 209 10^3/uL (150-450); RED BLOOD COUNT 3.29 10^6/uL (4.00-5.40); RED CELL DISTRIBUTION WIDTH 14.1 % (11.5-14.5); WHITE BLOOD COUNT 9.2 10^3/uL (4.0-10.0)
[2018-04-13] MEDS: FORMOTEROL FUMARATE 20 MCG/2 ML INHALATION SOLUTION (PERFOROMIST) INH ×2 (07:17→19:47)
[2018-04-13 07:30] LABS: ALBUMIN 2.7 GM/DL (3.2-5.2); ALBUMIN/GLOBULIN RATIO 0.69 (1.00-1.93); ALKALINE PHOSPHATASE 69 U/L (45-117); ALT/SGPT 11 U/L (12-78); ANION GAP 4 MEQ/L (8-16); AST/SGOT 9 U/L (7-37); BILIRUBIN,TOTAL 0.2 MG/DL (0.2-1.0); BLOOD UREA NITROGEN 18 MG/DL (7-18); CALCIUM LEVEL 9.2 MG/DL (8.8-10.2); CARBON DIOXIDE LEVEL 36 MEQ/L (21-32); CHLORIDE LEVEL 102 MEQ/L (98-107); CREATININE FOR GFR 0.74 MG/DL (0.55-1.30); GLOMERULAR FILTRATION RATE > 60.0 (>45); GLUCOSE, FASTING 129 MG/DL (70-100); MAGNESIUM LEVEL 2.3 MG/DL (1.8-2.4); POTASSIUM SERUM 4.4 MEQ/L (3.5-5.1); SODIUM LEVEL 142 MEQ/L (136-145); TOTAL PROTEIN 6.6 GM/DL (6.4-8.2)
[2018-04-13] MEDS: OMEPRAZOLE 20 MG CAP PO ×2 (08:07→21:37)
[2018-04-13] MEDS: VITAMIN D 1,000 INTERNATIONAL UNITS TABLET PO (08:08)
[2018-04-13] MEDS: ASPIRIN 81 MG ENTERIC TAB PO (08:08)
[2018-04-13] MEDS: MIDODRINE 5 MG TAB PO ×2 (08:08→16:31)
[2018-04-13] MEDS: RIVAROXABAN 10 MG TAB (XARELTO) PO (08:08)
[2018-04-13] MEDS: ESCITALOPRAM OXALATE 10 MG TAB (LEXAPRO) PO (08:09)
[2018-04-13] MEDS: predniSONE 20 MG TAB PO ×2 (08:09→21:37)
[2018-04-13] MEDS: FOLIC ACID 1 MG TAB PO (08:09)
[2018-04-13] MEDS: FAMOTIDINE 20 MG TAB PO (08:09)
[2018-04-13] MEDS: PANTOPRAZOLE 40MG INJ (PROTONIX) (C9113) IV (08:10)
[2018-04-13] MEDS: ALPRAZolam 0.5 MG TAB PO (13:02)
[2018-04-13] MEDS: SIMVASTATIN 20 MG TAB PO (21:37)
[2018-04-13] MEDS: traZODone 50 MG TAB PO (21:38)
[2018-04-13] MEDS: DOXYCYCLINE HYCLATE 100 MG TAB PO (21:38)
[2018-04-14] MEDS: IPRATROPIUM 0.5MG/ALBUTEROL 2.5MG INH SOL UD 3ML (DUONEB)(J7620) NEB (02:03)
[2018-04-14] MEDS: PERCOCET 5MG/325MG TAB PO ×3 (03:08→11:54)
[2018-04-14 06:52] LABS: HEMATOCRIT 29.3 % (36.0-47.0); HEMOGLOBIN 8.8 g/dl (12.0-15.5); IMMATURE GRANULOCYTE % 0.5 % (0-3.0); LYMPH # 0.5 10^3/uL (1.5-4.5); LYMPH % 7.1 % (24.0-44.0); MEAN CORPUSCULAR HEMOGLOBIN 26.3 pg (27.0-33.0); MEAN CORPUSCULAR VOLUME 87.5 fl (80.0-96.0); MONO # 0.1 10^3/uL (0.0-0.8); MONO % 1.7 % (0.0-5.0); NEUTROPHILS % 90.7 % (36.0-66.0); PLATELET COUNT, AUTOMATED 227 10^3/uL (150-450); RED BLOOD COUNT 3.35 10^6/uL (4.00-5.40); RED CELL DISTRIBUTION WIDTH 14.3 % (11.5-14.5); WHITE BLOOD COUNT 6.7 10^3/uL (4.0-10.0)
[2018-04-14 07:16] LABS: ALBUMIN 2.6 GM/DL (3.2-5.2); ALBUMIN/GLOBULIN RATIO 0.67 (1.00-1.93); ALKALINE PHOSPHATASE 66 U/L (45-117); ALT/SGPT 14 U/L (12-78); ANION GAP 3 MEQ/L (8-16); AST/SGOT 13 U/L (7-37); BILIRUBIN,TOTAL 0.2 MG/DL (0.2-1.0); BLOOD UREA NITROGEN 20 MG/DL (7-18); CARBON DIOXIDE LEVEL 37 MEQ/L (21-32); CHLORIDE LEVEL 101 MEQ/L (98-107); CREATININE FOR GFR 0.75 MG/DL (0.55-1.30); GLOMERULAR FILTRATION RATE > 60.0 (>45); GLUCOSE, FASTING 122 MG/DL (70-100); MAGNESIUM LEVEL 2.2 MG/DL (1.8-2.4); POTASSIUM SERUM 4.3 MEQ/L (3.5-5.1); SODIUM LEVEL 141 MEQ/L (136-145); TOTAL PROTEIN 6.5 GM/DL (6.4-8.2)
[2018-04-14] MEDS: FAMOTIDINE 20 MG TAB PO (08:44)
[2018-04-14] MEDS: predniSONE 20 MG TAB PO (08:44)
[2018-04-14] MEDS: ASPIRIN 81 MG ENTERIC TAB PO (08:44)
[2018-04-14] MEDS: FOLIC ACID 1 MG TAB PO (08:44)
[2018-04-14] MEDS: DOXYCYCLINE HYCLATE 100 MG TAB PO (08:45)
[2018-04-14] MEDS: ESCITALOPRAM OXALATE 10 MG TAB (LEXAPRO) PO (08:45)
[2018-04-14] MEDS: VITAMIN D 1,000 INTERNATIONAL UNITS TABLET PO (08:45)
[2018-04-14] MEDS: RIVAROXABAN 10 MG TAB (XARELTO) PO (08:45)
[2018-04-14] MEDS: OMEPRAZOLE 20 MG CAP PO (08:45)
[2018-04-14] MEDS: MIDODRINE 5 MG TAB PO (08:45)
[2018-04-14] MEDS: PANTOPRAZOLE 40MG INJ (PROTONIX) (C9113) IV (08:46)
== END 2018-04-14 12:58 | disposition home or self-care (01) | DRG 140 ==
LOC: M MS5PR 04-12 18:42 → M ED 10:07 → M ED INP 14:08 → M PCU 16:45
PROVIDERS: Internal Medicine
DX: J44.1 Chronic obstructive pulmonary disease with (acute) exacerbation (principal); J96.02 Acute respiratory failure with hypercapnia; I27.20 Pulmonary hypertension, unspecified; I95.9 Hypotension, unspecified; I50.32 Chronic diastolic (congestive) heart failure; Z99.81 Dependence on supplemental oxygen; E78.5 Hyperlipidemia, unspecified; F41.9 Anxiety disorder, unspecified; F32.9 Major depressive disorder, single episode, unspecified; M50.30 Other cervical disc degeneration, unspecified cervical region; K21.9 Gastro-esophageal reflux disease without esophagitis; R11.2 Nausea with vomiting, unspecified; R19.7 Diarrhea, unspecified; Z79.82 Long term (current) use of aspirin; Z79.899 Other long term (current) drug therapy; Z88.5 Allergy status to narcotic agent; Z88.8 Allergy status to other drugs, medicaments and biological substances; Z88.1 Allergy status to other antibiotic agents; Z96.641 Presence of right artificial hip joint; Z87.891 Personal history of nicotine dependence; Z86.718 Personal history of other venous thrombosis and embolism; Z86.711 Personal history of pulmonary embolism; Z79.01 Long term (current) use of anticoagulants; S82.892D Other fracture of left lower leg, subsequent encounter for closed fracture with routine healing; X58.XXXD Exposure to other specified factors, subsequent encounter; Y92.9 Unspecified place or not applicable

== ENCOUNTER 2018-05-06 12:10 | Inpatient (IN) | payer OTHER ==
[2018-05-06] MEDS: predniSONE 20 MG TAB PO ×2 (09:00→15:23)
[2018-05-06 12:52] LABS: ABG BASE EXCESS 9.9 (-2.0-2.0); ABG HCO3 36.9 MEQ/L (22.0-26.0); ABG O2 SATURATION 94.3 % (95.0-99.0); ABG PARTIAL PRESSURE O2 69.5 mmHg (75.0-100.0); ABG STANDARD HCO3 33.6 MEQ/L (22.0-26.0); ABG TOTAL CO2 38.9 MEQ/L (23.0-31.0); ABG pH (ARTERIAL) 7.378 UNITS (7.350-7.450)
[2018-05-06] MEDS: IPRATROPIUM 0.5MG/ALBUTEROL 2.5MG INH SOL UD 3ML (DUONEB)(J7620) NEB ×3 (12:53→22:45)
[2018-05-06 12:57] LABS: ABG PARTIAL PRESSURE CO2 64.1 mmHg (35.0-45.0)
[2018-05-06 12:59] LABS: BASO % 0.5 % (0.0-1.0); EOS # 0.2 10^3/uL (0.0-0.50); EOS % 3.8 % (0.0-3.0); HEMATOCRIT 31.5 % (36.0-47.0); HEMOGLOBIN 9.2 g/dl (12.0-15.5); IMMATURE GRANULOCYTE % 0.2 % (0-3.0); LYMPH # 2.1 10^3/uL (1.5-4.5); LYMPH % 35.4 % (24.0-44.0); MEAN CORPUSCULAR HEMOGLOBIN 25.6 pg (27.0-33.0); MEAN CORPUSCULAR HGB CONC 29.2 g/dl (32.0-36.5); MEAN CORPUSCULAR VOLUME 87.7 fl (80.0-96.0); MONO # 0.4 10^3/uL (0.0-0.8); NEUTROPHILS # 3.2 10^3/uL (1.8-7.7); NEUTROPHILS % 53.1 % (36.0-66.0); PLATELET COUNT, AUTOMATED 199 10^3/uL (150-450); RED BLOOD COUNT 3.59 10^6/uL (4.00-5.40); RED CELL DISTRIBUTION WIDTH 13.7 % (11.5-14.5)
[2018-05-06 13:27] LABS: LACTIC ACID SEPSIS PROTOCOL 1.1 MMOL/L (0.4-2.0)
[2018-05-06 13:36] LABS: ALBUMIN 3.1 GM/DL (3.2-5.2); ALBUMIN/GLOBULIN RATIO 0.94 (1.00-1.93); ALKALINE PHOSPHATASE 92 U/L (45-117); ALT/SGPT 15 U/L (12-78); ANION GAP 4 MEQ/L (8-16); AST/SGOT 15 U/L (7-37); BILIRUBIN,DIRECT < 0.1 MG/DL (0.0-0.2); BILIRUBIN,TOTAL 0.3 MG/DL (0.2-1.0); BLOOD UREA NITROGEN 11 MG/DL (7-18); CARBON DIOXIDE LEVEL 37 MEQ/L (21-32); CHLORIDE LEVEL 101 MEQ/L (98-107); CPK CREATINE PHOSPHOKINASE 36 U/L (26-192); CREATININE FOR GFR 0.83 MG/DL (0.55-1.30); GLOMERULAR FILTRATION RATE > 60.0 (>45); GLUCOSE, FASTING 86 MG/DL (70-100); MB/CK RELATIVE INDEX 3.89 (< OR =4); NT-PRO BNP 77 PG/ML (<125); POTASSIUM SERUM 4.3 MEQ/L (3.5-5.1); SODIUM LEVEL 142 MEQ/L (136-145); TOTAL PROTEIN 6.4 GM/DL (6.4-8.2); TROPONIN I < 0.02 NG/ML (< 0.10)
[2018-05-06] MEDS ORDERED: ACETAMINOPHEN TAB 650MG DOSE (2X325MG) PO (15:45)
[2018-05-06] MEDS ORDERED: ONDANSETRON 4MG/2ML VIAL (J2405) IV (15:45)
[2018-05-06] MEDS ORDERED: PILL CRUSHER/CUTTER 1 EACH XX (17:15)
[2018-05-06] MEDS: PERCOCET 5MG/325MG TAB PO (18:56)
[2018-05-06] MEDS: lamoTRIgine 100MG TAB PO ×2 (21:00→21:29)
[2018-05-06] MEDS: OMEPRAZOLE 20 MG CAP PO (21:30)
[2018-05-06] MEDS: traZODone 50 MG TAB PO (21:30)
[2018-05-06] MEDS: SENNA 8.6 MG TAB (SENOKOT) PO (21:30)
[2018-05-06] MEDS: SIMVASTATIN 20 MG TAB PO (21:30)
[2018-05-07] MEDS: PERCOCET 5MG/325MG TAB PO ×5 (01:58→19:34)
[2018-05-07] MEDS: IPRATROPIUM 0.5MG/ALBUTEROL 2.5MG INH SOL UD 3ML (DUONEB)(J7620) NEB (04:23)
[2018-05-07 06:06] LABS: HEMATOCRIT 29.6 % (36.0-47.0); HEMOGLOBIN 8.7 g/dl (12.0-15.5); MEAN CORPUSCULAR HEMOGLOBIN 25.4 pg (27.0-33.0); MEAN CORPUSCULAR HGB CONC 29.4 g/dl (32.0-36.5); MEAN CORPUSCULAR VOLUME 86.5 fl (80.0-96.0); PLATELET COUNT, AUTOMATED 188 10^3/uL (150-450); RED BLOOD COUNT 3.42 10^6/uL (4.00-5.40); RED CELL DISTRIBUTION WIDTH 13.7 % (11.5-14.5); WHITE BLOOD COUNT 3.8 10^3/uL (4.0-10.0)
[2018-05-07 06:26] LABS: ANION GAP 4 MEQ/L (8-16); BLOOD UREA NITROGEN 15 MG/DL (7-18); CARBON DIOXIDE LEVEL 34 MEQ/L (21-32); CHLORIDE LEVEL 100 MEQ/L (98-107); CREATININE FOR GFR 0.79 MG/DL (0.55-1.30); GLOMERULAR FILTRATION RATE > 60.0 (>45); GLUCOSE, FASTING 107 MG/DL (70-100); POTASSIUM SERUM 4.2 MEQ/L (3.5-5.1); SODIUM LEVEL 138 MEQ/L (136-145)
[2018-05-07 06:55] LABS: FERRITIN 21 NG/ML (8-252); IRON (FE) 25 UG/DL (50-170); PERCENT SATURATION 6.5 % (13.2-45.0); TOTAL IRON BINDING CAPACITY 382 UG/DL (250-450)
[2018-05-07] MEDS: SYMBICORT 80/4.5MCG INHALER 6GM INH ×2 (07:12→21:00)
[2018-05-07] MEDS: SODIUM CHLORIDE HYPERTONIC 3% 15ML NEB SOL INH ×3 (07:12→20:14)
[2018-05-07] MEDS: ALBUTEROL SULFATE 2.5 MG/0.5 ML INH NEB SOLN NEB ×3 (07:12→20:14)
[2018-05-07] MEDS ORDERED: PANTOPRAZOLE 40MG TAB (PROTONIX) PO (09:00)
[2018-05-07] MEDS: predniSONE 20 MG TAB PO (09:34)
[2018-05-07] MEDS: ESCITALOPRAM OXALATE 10 MG TAB (LEXAPRO) PO (09:34)
[2018-05-07] MEDS: VITAMIN D 1,000 INTERNATIONAL UNITS TABLET PO (09:35)
[2018-05-07] MEDS: FOLIC ACID 1 MG TAB PO (09:35)
[2018-05-07] MEDS: lamoTRIgine 100MG TAB PO (09:35)
[2018-05-07] MEDS: FAMOTIDINE 20 MG TAB PO (09:36)
[2018-05-07] MEDS: MIDODRINE 5 MG TAB PO ×2 (09:36→14:34)
[2018-05-07] MEDS: OMEPRAZOLE 20 MG CAP PO ×2 (09:36→20:03)
[2018-05-07] MEDS: SPIRONOLACTONE 25 MG TAB PO ×2 (09:36→14:34)
[2018-05-07] MEDS: ASPIRIN 81 MG ENTERIC TAB PO (09:37)
[2018-05-07] MEDS: RIVAROXABAN 10 MG TAB (XARELTO) PO (09:40)
[2018-05-07 10:21] LABS: FOLATE > 24.0 NG/ML (>5.4); VITAMIN B12 LEVEL 371 PG/ML (247-911)
[2018-05-07] MEDS: FERROUS SULFATE 325MG TAB PO (12:18)
[2018-05-07] MEDS: CYANOCOBALAMIN 250 MCG TABLET PO (12:18)
[2018-05-07] MEDS: ALPRAZolam 0.5 MG TAB PO (12:18)
[2018-05-07] MEDS: SENNA 8.6 MG TAB (SENOKOT) PO (20:03)
[2018-05-07] MEDS: SIMVASTATIN 20 MG TAB PO (20:03)
[2018-05-07] MEDS: traZODone 50 MG TAB PO (22:03)
[2018-05-08] MEDS: PERCOCET 5MG/325MG TAB PO ×6 (00:12→21:45)
[2018-05-08] MEDS: ALBUTEROL SULFATE 2.5 MG/0.5 ML INH NEB SOLN NEB ×4 (01:22→21:09)
[2018-05-08] MEDS: SODIUM CHLORIDE HYPERTONIC 3% 15ML NEB SOL INH ×4 (02:00→21:09)
[2018-05-08] MEDS: IPRATROPIUM 0.5MG/ALBUTEROL 2.5MG INH SOL UD 3ML (DUONEB)(J7620) NEB ×2 (05:02→23:41)
[2018-05-08 06:13] LABS: BASO % 0.4 % (0.0-1.0); HEMATOCRIT 27.7 % (36.0-47.0); HEMOGLOBIN 8.3 g/dl (12.0-15.5); IMMATURE GRANULOCYTE % 0.2 % (0-3.0); LYMPH # 1.4 10^3/uL (1.5-4.5); MEAN CORPUSCULAR HEMOGLOBIN 25.4 pg (27.0-33.0); MEAN CORPUSCULAR VOLUME 84.7 fl (80.0-96.0); MONO # 0.4 10^3/uL (0.0-0.8); MONO % 7.2 % (0.0-5.0); NEUTROPHILS # 3.8 10^3/uL (1.8-7.7); NEUTROPHILS % 67.2 % (36.0-66.0); PLATELET COUNT, AUTOMATED 200 10^3/uL (150-450); RED BLOOD COUNT 3.27 10^6/uL (4.00-5.40); RED CELL DISTRIBUTION WIDTH 14.1 % (11.5-14.5); WHITE BLOOD COUNT 5.6 10^3/uL (4.0-10.0)
[2018-05-08 06:37] LABS: ANION GAP 3 MEQ/L (8-16); BLOOD UREA NITROGEN 18 MG/DL (7-18); CALCIUM LEVEL 8.8 MG/DL (8.8-10.2); CARBON DIOXIDE LEVEL 35 MEQ/L (21-32); CHLORIDE LEVEL 103 MEQ/L (98-107); CREATININE FOR GFR 0.84 MG/DL (0.55-1.30); GLOMERULAR FILTRATION RATE > 60.0 (>45); GLUCOSE, FASTING 94 MG/DL (70-100); POTASSIUM SERUM 3.7 MEQ/L (3.5-5.1); SODIUM LEVEL 141 MEQ/L (136-145)
[2018-05-08] MEDS: SYMBICORT 80/4.5MCG INHALER 6GM INH ×2 (07:31→21:10)
[2018-05-08] MEDS: CYANOCOBALAMIN 250 MCG TABLET PO (08:11)
[2018-05-08] MEDS: FERROUS SULFATE 325MG TAB PO (08:12)
[2018-05-08] MEDS: lamoTRIgine 100MG TAB PO (08:12)
[2018-05-08] MEDS: SPIRONOLACTONE 25 MG TAB PO ×2 (08:12→14:06)
[2018-05-08] MEDS: predniSONE 20 MG TAB PO (08:12)
[2018-05-08] MEDS: FAMOTIDINE 20 MG TAB PO (08:12)
[2018-05-08] MEDS: VITAMIN D 1,000 INTERNATIONAL UNITS TABLET PO (08:12)
[2018-05-08] MEDS: MIDODRINE 5 MG TAB PO ×2 (08:12→14:06)
[2018-05-08] MEDS: OMEPRAZOLE 20 MG CAP PO ×2 (08:12→21:43)
[2018-05-08] MEDS: ASPIRIN 81 MG ENTERIC TAB PO (08:12)
[2018-05-08] MEDS: RIVAROXABAN 10 MG TAB (XARELTO) PO (08:12)
[2018-05-08] MEDS: FOLIC ACID 1 MG TAB PO (08:12)
[2018-05-08] MEDS: ESCITALOPRAM OXALATE 10 MG TAB (LEXAPRO) PO (08:13)
[2018-05-08] MEDS ORDERED: DEXTROMETHORPHAN 5 ML SYRUP (ROBITUSSIN PEDIATRIC COUGH) PO (11:00)
[2018-05-08] MEDS: ALPRAZolam 0.5 MG TAB PO (12:53)
[2018-05-08] MEDS ORDERED: MOM 30ML SUSPENSION UDC PO (20:15)
[2018-05-08] MEDS: ONDANSETRON 4 MG TAB (S0181) PO (21:43)
[2018-05-08] MEDS: SIMVASTATIN 20 MG TAB PO (21:43)
[2018-05-08] MEDS: BENZONATATE 100 MG CAP PO (21:43)
[2018-05-08] MEDS: SENNA 8.6 MG TAB (SENOKOT) PO (21:43)
[2018-05-08] MEDS: traZODone 50 MG TAB PO (21:43)
[2018-05-09] MEDS: ALBUTEROL SULFATE 2.5 MG/0.5 ML INH NEB SOLN NEB ×4 (01:28→20:56)
[2018-05-09] MEDS: SODIUM CHLORIDE HYPERTONIC 3% 15ML NEB SOL INH ×4 (01:28→20:56)
[2018-05-09] MEDS: ONDANSETRON 4 MG TAB (S0181) PO ×4 (03:00→21:49)
[2018-05-09] MEDS: PERCOCET 5MG/325MG TAB PO ×5 (03:00→21:12)
[2018-05-09] MEDS: IPRATROPIUM 0.5MG/ALBUTEROL 2.5MG INH SOL UD 3ML (DUONEB)(J7620) NEB ×3 (03:18→23:31)
[2018-05-09 06:34] LABS: BASO % 0.6 % (0.0-1.0); EOS % 0.2 % (0.0-3.0); HEMATOCRIT 27.7 % (36.0-47.0); HEMOGLOBIN 8.2 g/dl (12.0-15.5); IMMATURE GRANULOCYTE % 0.4 % (0-3.0); LYMPH % 37.7 % (24.0-44.0); MEAN CORPUSCULAR HEMOGLOBIN 25.9 pg (27.0-33.0); MEAN CORPUSCULAR HGB CONC 29.6 g/dl (32.0-36.5); MEAN CORPUSCULAR VOLUME 87.4 fl (80.0-96.0); MONO # 0.5 10^3/uL (0.0-0.8); NEUTROPHILS # 2.7 10^3/uL (1.8-7.7); NEUTROPHILS % 52.1 % (36.0-66.0); PLATELET COUNT, AUTOMATED 206 10^3/uL (150-450); RED BLOOD COUNT 3.17 10^6/uL (4.00-5.40); RED CELL DISTRIBUTION WIDTH 14.5 % (11.5-14.5); WHITE BLOOD COUNT 5.2 10^3/uL (4.0-10.0)
[2018-05-09 06:43] LABS: ANION GAP 1 MEQ/L (8-16); BLOOD UREA NITROGEN 16 MG/DL (7-18); CALCIUM LEVEL 8.5 MG/DL (8.8-10.2); CARBON DIOXIDE LEVEL 36 MEQ/L (21-32); CHLORIDE LEVEL 106 MEQ/L (98-107); CREATININE FOR GFR 0.83 MG/DL (0.55-1.30); GLOMERULAR FILTRATION RATE > 60.0 (>45); GLUCOSE, FASTING 78 MG/DL (70-100); SODIUM LEVEL 143 MEQ/L (136-145)
[2018-05-09] MEDS: BENZONATATE 100 MG CAP PO ×3 (07:02→21:49)
[2018-05-09] MEDS: SYMBICORT 80/4.5MCG INHALER 6GM INH ×2 (07:14→20:56)
[2018-05-09] MEDS: VITAMIN D 1,000 INTERNATIONAL UNITS TABLET PO (08:14)
[2018-05-09] MEDS: SPIRONOLACTONE 25 MG TAB PO ×2 (08:14→14:24)
[2018-05-09] MEDS: CYANOCOBALAMIN 250 MCG TABLET PO (08:14)
[2018-05-09] MEDS: FERROUS SULFATE 325MG TAB PO (08:14)
[2018-05-09] MEDS: ESCITALOPRAM OXALATE 10 MG TAB (LEXAPRO) PO (08:14)
[2018-05-09] MEDS: lamoTRIgine 100MG TAB PO (08:14)
[2018-05-09] MEDS: ASPIRIN 81 MG ENTERIC TAB PO (08:15)
[2018-05-09] MEDS: FOLIC ACID 1 MG TAB PO (08:15)
[2018-05-09] MEDS: RIVAROXABAN 10 MG TAB (XARELTO) PO (08:15)
[2018-05-09] MEDS: OMEPRAZOLE 20 MG CAP PO ×2 (08:15→21:12)
[2018-05-09] MEDS: MIDODRINE 5 MG TAB PO ×2 (08:15→14:24)
[2018-05-09] MEDS: predniSONE 20 MG TAB PO (08:15)
[2018-05-09] MEDS: FAMOTIDINE 20 MG TAB PO (08:15)
[2018-05-09] MEDS: ALPRAZolam 0.5 MG TAB PO (15:49)
[2018-05-09] MEDS: SENNA 8.6 MG TAB (SENOKOT) PO (21:12)
[2018-05-09] MEDS: SIMVASTATIN 20 MG TAB PO (21:12)
[2018-05-09] MEDS: traZODone 50 MG TAB PO (21:48)
[2018-05-10] MEDS: ALBUTEROL SULFATE 2.5 MG/0.5 ML INH NEB SOLN NEB ×2 (02:00→07:52)
[2018-05-10] MEDS: SODIUM CHLORIDE HYPERTONIC 3% 15ML NEB SOL INH ×2 (02:00→07:52)
[2018-05-10] MEDS: PERCOCET 5MG/325MG TAB PO ×3 (02:16→10:46)
[2018-05-10] MEDS: IPRATROPIUM 0.5MG/ALBUTEROL 2.5MG INH SOL UD 3ML (DUONEB)(J7620) NEB (04:59)
[2018-05-10] MEDS: ONDANSETRON 4 MG TAB (S0181) PO ×2 (05:01→08:22)
[2018-05-10] MEDS: BENZONATATE 100 MG CAP PO (05:01)
[2018-05-10 06:32] LABS: BASO % 0.4 % (0.0-1.0); EOS % 0.4 % (0.0-3.0); HEMATOCRIT 28.3 % (36.0-47.0); HEMOGLOBIN 8.1 g/dl (12.0-15.5); IMMATURE GRANULOCYTE % 0.2 % (0-3.0); LYMPH % 35.4 % (24.0-44.0); MEAN CORPUSCULAR HEMOGLOBIN 25.2 pg (27.0-33.0); MEAN CORPUSCULAR HGB CONC 28.6 g/dl (32.0-36.5); MEAN CORPUSCULAR VOLUME 88.2 fl (80.0-96.0); MONO # 0.5 10^3/uL (0.0-0.8); MONO % 9.5 % (0.0-5.0); NEUTROPHILS # 3.1 10^3/uL (1.8-7.7); NEUTROPHILS % 54.1 % (36.0-66.0); PLATELET COUNT, AUTOMATED 213 10^3/uL (150-450); RED BLOOD COUNT 3.21 10^6/uL (4.00-5.40); RED CELL DISTRIBUTION WIDTH 14.5 % (11.5-14.5); WHITE BLOOD COUNT 5.7 10^3/uL (4.0-10.0)
[2018-05-10 06:52] LABS: ANION GAP 4 MEQ/L (8-16); BLOOD UREA NITROGEN 17 MG/DL (7-18); CALCIUM LEVEL 8.2 MG/DL (8.8-10.2); CARBON DIOXIDE LEVEL 34 MEQ/L (21-32); CHLORIDE LEVEL 106 MEQ/L (98-107); GLOMERULAR FILTRATION RATE > 60.0 (>45); GLUCOSE, FASTING 85 MG/DL (70-100); POTASSIUM SERUM 3.8 MEQ/L (3.5-5.1); SODIUM LEVEL 144 MEQ/L (136-145)
[2018-05-10] MEDS: SYMBICORT 80/4.5MCG INHALER 6GM INH (07:52)
[2018-05-10] MEDS: ASPIRIN 81 MG ENTERIC TAB PO (08:20)
[2018-05-10] MEDS: CYANOCOBALAMIN 250 MCG TABLET PO (08:20)
[2018-05-10] MEDS: lamoTRIgine 100MG TAB PO (08:21)
[2018-05-10] MEDS: FOLIC ACID 1 MG TAB PO (08:21)
[2018-05-10] MEDS: RIVAROXABAN 10 MG TAB (XARELTO) PO (08:21)
[2018-05-10] MEDS: ESCITALOPRAM OXALATE 10 MG TAB (LEXAPRO) PO (08:21)
[2018-05-10] MEDS: FERROUS SULFATE 325MG TAB PO (08:21)
[2018-05-10] MEDS: OMEPRAZOLE 20 MG CAP PO (08:21)
[2018-05-10] MEDS: FAMOTIDINE 20 MG TAB PO (08:21)
[2018-05-10] MEDS: VITAMIN D 1,000 INTERNATIONAL UNITS TABLET PO (08:21)
[2018-05-10] MEDS: SPIRONOLACTONE 25 MG TAB PO (08:21)
[2018-05-10] MEDS: MIDODRINE 5 MG TAB PO (08:21)
[2018-05-10] MEDS: predniSONE 20 MG TAB PO (08:22)
== END 2018-05-10 11:27 | disposition home health service (06) | DRG 140 ==
LOC: M ED 12:10 → M ED INP 15:45 → M MSPAV 18:52
DX: J44.1 Chronic obstructive pulmonary disease with (acute) exacerbation (principal); J96.11 Chronic respiratory failure with hypoxia; I27.20 Pulmonary hypertension, unspecified; I95.89 Other hypotension; J96.12 Chronic respiratory failure with hypercapnia; I50.32 Chronic diastolic (congestive) heart failure; Z99.81 Dependence on supplemental oxygen; M50.20 Other cervical disc displacement, unspecified cervical region; D51.0 Vitamin B12 deficiency anemia due to intrinsic factor deficiency; F41.9 Anxiety disorder, unspecified; F32.9 Major depressive disorder, single episode, unspecified; D50.9 Iron deficiency anemia, unspecified; K21.9 Gastro-esophageal reflux disease without esophagitis; E66.9 Obesity, unspecified; Z96.641 Presence of right artificial hip joint; Z87.891 Personal history of nicotine dependence; Z79.01 Long term (current) use of anticoagulants; Z86.718 Personal history of other venous thrombosis and embolism; Z79.82 Long term (current) use of aspirin; Z79.52 Long term (current) use of systemic steroids; Z79.899 Other long term (current) drug therapy; Z88.5 Allergy status to narcotic agent; Z88.1 Allergy status to other antibiotic agents; Z88.8 Allergy status to other drugs, medicaments and biological substances; Z88.2 Allergy status to sulfonamides; Z88.0 Allergy status to penicillin; Z68.34 Body mass index [BMI] 34.0-34.9, adult

== ENCOUNTER 2018-05-27 17:18 | Inpatient (IN) | payer OTHER ==
[2018-05-27] MEDS: IPRATROPIUM 0.5MG/ALBUTEROL 2.5MG INH SOL UD 3ML (DUONEB)(J7620) NEB (17:19)
[2018-05-27 17:59] LABS: ABG BASE EXCESS 8.2 (-2.0-2.0); ABG HCO3 35.4 MEQ/L (22.0-26.0); ABG O2 SATURATION 97.7 % (95.0-99.0); ABG PARTIAL PRESSURE O2 95.7 mmHg (75.0-100.0); ABG TOTAL CO2 37.4 MEQ/L (23.0-31.0); ABG pH (ARTERIAL) 7.349 UNITS (7.350-7.450); BASO % 0.3 % (0.0-1.0); EOS # 0.5 10^3/uL (0.0-0.50); EOS % 3.6 % (0.0-3.0); HEMATOCRIT 30.7 % (36.0-47.0); IMMATURE GRANULOCYTE % 0.2 % (0-3.0); LYMPH # 2.5 10^3/uL (1.5-4.5); LYMPH % 19.2 % (24.0-44.0); MEAN CORPUSCULAR HEMOGLOBIN 25.7 pg (27.0-33.0); MEAN CORPUSCULAR HGB CONC 29.3 g/dl (32.0-36.5); MEAN CORPUSCULAR VOLUME 87.7 fl (80.0-96.0); MONO # 0.9 10^3/uL (0.0-0.8); MONO % 6.7 % (0.0-5.0); NEUTROPHILS # 9.2 10^3/uL (1.8-7.7); PLATELET COUNT, AUTOMATED 244 10^3/uL (150-450); RED CELL DISTRIBUTION WIDTH 15.7 % (11.5-14.5); WHITE BLOOD COUNT 13.2 10^3/uL (4.0-10.0)
[2018-05-27 18:07] LABS: ABG PARTIAL PRESSURE CO2 65.7 mmHg (35.0-45.0)
[2018-05-27] MEDS: ALBUTEROL SULFATE 2.5 MG/0.5 ML INH NEB SOLN INH (18:08)
[2018-05-27 18:16] LABS: PROTHROMBIN TIME 15.3 SECONDS (12.1-14.4)
[2018-05-27 18:29] LABS: LACTIC ACID SEPSIS PROTOCOL 1.1 MMOL/L (0.4-2.0)
[2018-05-27 18:34] LABS: INFLUENZA A AMPLIFICATION NEGATIVE (NEGATIVE); INFLUENZA B AMPLIFICATION NEGATIVE (NEGATIVE)
[2018-05-27 18:36] LABS: ALT/SGPT 15 U/L (12-78); ANION GAP 7 MEQ/L (8-16); AST/SGOT 15 U/L (7-37); BLOOD UREA NITROGEN 15 MG/DL (7-18); CALCIUM LEVEL 8.5 MG/DL (8.8-10.2); CARBON DIOXIDE LEVEL 32 MEQ/L (21-32); CHLORIDE LEVEL 103 MEQ/L (98-107); CPK CREATINE PHOSPHOKINASE 61 U/L (26-192); CREATININE FOR GFR 0.74 MG/DL (0.55-1.30); GLOMERULAR FILTRATION RATE > 60.0 (>45); GLUCOSE, FASTING 100 MG/DL (70-100); POTASSIUM SERUM 3.8 MEQ/L (3.5-5.1); SODIUM LEVEL 142 MEQ/L (136-145)
[2018-05-27 18:37] LABS: ALBUMIN 3.1 GM/DL (3.2-5.2); ALKALINE PHOSPHATASE 78 U/L (45-117); BILIRUBIN,DIRECT < 0.1 MG/DL (0.0-0.2); BILIRUBIN,TOTAL < 0.1 MG/DL (0.2-1.0); MB/CK RELATIVE INDEX 2.79 (< OR =4); NT-PRO BNP 144 PG/ML (<125); THYROXINE (T4) 10.4 UG/DL (4.5-12.0); TOTAL PROTEIN 6.2 GM/DL (6.4-8.2); TROPONIN I < 0.02 NG/ML (< 0.10)
[2018-05-27] MEDS: PERCOCET 5MG/325MG TAB PO ×2 (18:49→23:20)
[2018-05-27] MEDS ORDERED: NITROGLYCERIN 0.4 MG SUBL TABLET SL (21:15)
[2018-05-27] MEDS ORDERED: ACETAMINOPHEN TAB 650MG DOSE (2X325MG) PO (21:15)
[2018-05-27] MEDS ORDERED: PILL CRUSHER/CUTTER 1 EACH XX (21:45)
[2018-05-27] MEDS: SENNA 8.6 MG TAB (SENOKOT) PO (21:46)
[2018-05-27] MEDS: predniSONE 20 MG TAB PO (21:47)
[2018-05-27] MEDS: traZODone 50 MG TAB PO (21:47)
[2018-05-27] MEDS: OMEPRAZOLE 20 MG CAP PO (21:50)
[2018-05-27] MEDS: SIMVASTATIN 20 MG TAB PO (21:50)
[2018-05-27] MEDS: BUDESONIDE 0.5 MG/2 ML INHALATION SUSPENSION INH (22:05)
[2018-05-27] MEDS ORDERED: DOXYCYCLINE HYCLATE 100 MG in D5W MINI-BAG PLUS 100 ML IV (22:15)
[2018-05-27] MEDS: FUROSEMIDE 20 MG/2 ML VIAL (J1940) IV (23:05)
[2018-05-27] MEDS: DOXYCYCLINE HYCLATE 100 MG in D5W MINI-BAG PLUS 100 ML IV (23:25)
[2018-05-27] MEDS: ONDANSETRON 4 MG TAB (S0181) PO (23:36)
[2018-05-28] MEDS: IPRATROPIUM 0.5MG/ALBUTEROL 2.5MG INH SOL UD 3ML (DUONEB)(J7620) NEB ×7 (00:09→21:00)
[2018-05-28] MEDS: PERCOCET 5MG/325MG TAB PO ×5 (03:32→23:11)
[2018-05-28 05:52] LABS: HEMATOCRIT 31.1 % (36.0-47.0); MEAN CORPUSCULAR HEMOGLOBIN 25.3 pg (27.0-33.0); MEAN CORPUSCULAR HGB CONC 28.9 g/dl (32.0-36.5); MEAN CORPUSCULAR VOLUME 87.4 fl (80.0-96.0); PLATELET COUNT, AUTOMATED 226 10^3/uL (150-450); RED BLOOD COUNT 3.56 10^6/uL (4.00-5.40); RED CELL DISTRIBUTION WIDTH 15.4 % (11.5-14.5); WHITE BLOOD COUNT 17.4 10^3/uL (4.0-10.0)
[2018-05-28 06:24] LABS: ANION GAP 6 MEQ/L (8-16); BLOOD UREA NITROGEN 12 MG/DL (7-18); CALCIUM LEVEL 8.6 MG/DL (8.8-10.2); CARBON DIOXIDE LEVEL 35 MEQ/L (21-32); CHLORIDE LEVEL 99 MEQ/L (98-107); CREATININE FOR GFR 0.84 MG/DL (0.55-1.30); FERRITIN 13 NG/ML (8-252); GLOMERULAR FILTRATION RATE > 60.0 (>45); GLUCOSE, FASTING 141 MG/DL (70-100); IRON (FE) 24 UG/DL (50-170); PERCENT SATURATION 5.7 % (13.2-45.0); POTASSIUM SERUM 3.9 MEQ/L (3.5-5.1); SODIUM LEVEL 140 MEQ/L (136-145); TOTAL IRON BINDING CAPACITY 418 UG/DL (250-450)
[2018-05-28] MEDS: BUDESONIDE 0.5 MG/2 ML INHALATION SUSPENSION INH ×2 (07:06→21:00)
[2018-05-28] MEDS: RIVAROXABAN 10 MG TAB (XARELTO) PO (08:15)
[2018-05-28] MEDS: FOLIC ACID 1 MG TAB PO (08:15)
[2018-05-28] MEDS: FAMOTIDINE 20 MG TAB PO (08:15)
[2018-05-28] MEDS: lamoTRIgine 100MG TAB PO (08:15)
[2018-05-28] MEDS: predniSONE 20 MG TAB PO (08:15)
[2018-05-28] MEDS: FUROSEMIDE 20 MG/2 ML VIAL (J1940) IV (08:15)
[2018-05-28] MEDS: FERROUS SULFATE 325MG TAB PO (08:16)
[2018-05-28] MEDS: ESCITALOPRAM OXALATE 10 MG TAB (LEXAPRO) PO (08:16)
[2018-05-28] MEDS: OMEPRAZOLE 20 MG CAP PO ×2 (08:16→20:02)
[2018-05-28] MEDS: MIDODRINE 5 MG TAB PO ×2 (08:16→16:22)
[2018-05-28] MEDS: ALPRAZolam 0.5 MG TAB PO (08:16)
[2018-05-28] MEDS: VITAMIN D 1,000 INTERNATIONAL UNITS TABLET PO (08:17)
[2018-05-28] MEDS: ASPIRIN 81 MG ENTERIC TAB PO (08:17)
[2018-05-28] MEDS: SPIRONOLACTONE 25 MG TAB PO ×2 (08:17→13:55)
[2018-05-28] MEDS: DOXYCYCLINE HYCLATE 100 MG in D5W MINI-BAG PLUS 100 ML IV ×2 (11:17→22:13)
[2018-05-28] MEDS: SENNA 8.6 MG TAB (SENOKOT) PO (20:02)
[2018-05-28] MEDS: SIMVASTATIN 20 MG TAB PO (20:02)
[2018-05-28] MEDS: traZODone 50 MG TAB PO (21:34)
[2018-05-29] MEDS: IPRATROPIUM 0.5MG/ALBUTEROL 2.5MG INH SOL UD 3ML (DUONEB)(J7620) NEB ×6 (00:11→21:40)
[2018-05-29] MEDS: PERCOCET 5MG/325MG TAB PO ×5 (04:17→22:29)
[2018-05-29 06:06] LABS: HEMATOCRIT 27.6 % (36.0-47.0); MEAN CORPUSCULAR HEMOGLOBIN 25.1 pg (27.0-33.0); MEAN CORPUSCULAR VOLUME 86.5 fl (80.0-96.0); PLATELET COUNT, AUTOMATED 221 10^3/uL (150-450); RED BLOOD COUNT 3.19 10^6/uL (4.00-5.40); RED CELL DISTRIBUTION WIDTH 15.7 % (11.5-14.5); WHITE BLOOD COUNT 10.2 10^3/uL (4.0-10.0)
[2018-05-29 06:26] LABS: ANION GAP 2 MEQ/L (8-16); BLOOD UREA NITROGEN 22 MG/DL (7-18); CALCIUM LEVEL 8.5 MG/DL (8.8-10.2); CARBON DIOXIDE LEVEL 39 MEQ/L (21-32); CHLORIDE LEVEL 99 MEQ/L (98-107); CREATININE FOR GFR 0.76 MG/DL (0.55-1.30); GLOMERULAR FILTRATION RATE > 60.0 (>45); GLUCOSE, FASTING 104 MG/DL (70-100); POTASSIUM SERUM 3.7 MEQ/L (3.5-5.1); SODIUM LEVEL 140 MEQ/L (136-145)
[2018-05-29] MEDS: BUDESONIDE 0.5 MG/2 ML INHALATION SUSPENSION INH ×2 (07:26→22:04)
[2018-05-29 08:06] LABS: TRANSFERRIN 319 mg/dL (200-370)
[2018-05-29] MEDS: ESCITALOPRAM OXALATE 10 MG TAB (LEXAPRO) PO (08:08)
[2018-05-29] MEDS: VITAMIN D 1,000 INTERNATIONAL UNITS TABLET PO (08:08)
[2018-05-29] MEDS: FUROSEMIDE 20 MG/2 ML VIAL (J1940) IV ×2 (08:08→14:03)
[2018-05-29] MEDS: predniSONE 20 MG TAB PO (08:08)
[2018-05-29] MEDS: ASPIRIN 81 MG ENTERIC TAB PO (08:08)
[2018-05-29] MEDS: FAMOTIDINE 20 MG TAB PO (08:08)
[2018-05-29] MEDS: FOLIC ACID 1 MG TAB PO (08:09)
[2018-05-29] MEDS: lamoTRIgine 100MG TAB PO (08:09)
[2018-05-29] MEDS: FERROUS SULFATE 325MG TAB PO ×2 (08:09→21:48)
[2018-05-29] MEDS: OMEPRAZOLE 20 MG CAP PO ×2 (08:09→21:48)
[2018-05-29] MEDS: SPIRONOLACTONE 25 MG TAB PO ×2 (08:09→14:03)
[2018-05-29] MEDS: MIDODRINE 5 MG TAB PO ×2 (08:09→17:40)
[2018-05-29] MEDS: ALPRAZolam 0.5 MG TAB PO (08:09)
[2018-05-29] MEDS: RIVAROXABAN 10 MG TAB (XARELTO) PO (08:09)
[2018-05-29] MEDS: DOXYCYCLINE HYCLATE 100 MG in D5W MINI-BAG PLUS 100 ML IV ×2 (11:22→21:48)
[2018-05-29] MEDS: ASCORBIC ACID 500 MG TAB PO ×2 (16:48→21:49)
[2018-05-29] MEDS: SIMVASTATIN 20 MG TAB PO (21:48)
[2018-05-29] MEDS: traZODone 50 MG TAB PO (21:48)
[2018-05-29] MEDS: SENNA 8.6 MG TAB (SENOKOT) PO (21:48)
[2018-05-30] MEDS: IPRATROPIUM 0.5MG/ALBUTEROL 2.5MG INH SOL UD 3ML (DUONEB)(J7620) NEB ×8 (00:57→23:42)
[2018-05-30] MEDS: PERCOCET 5MG/325MG TAB PO ×5 (03:44→21:11)
[2018-05-30 06:12] LABS: HEMATOCRIT 28.2 % (36.0-47.0); HEMOGLOBIN 8.1 g/dl (12.0-15.5); MEAN CORPUSCULAR HEMOGLOBIN 25.6 pg (27.0-33.0); MEAN CORPUSCULAR HGB CONC 28.7 g/dl (32.0-36.5); PLATELET COUNT, AUTOMATED 212 10^3/uL (150-450); RED BLOOD COUNT 3.17 10^6/uL (4.00-5.40); RED CELL DISTRIBUTION WIDTH 16.2 % (11.5-14.5); WHITE BLOOD COUNT 8.3 10^3/uL (4.0-10.0)
[2018-05-30 06:31] LABS: ANION GAP 2 MEQ/L (8-16); BLOOD UREA NITROGEN 24 MG/DL (7-18); CALCIUM LEVEL 8.5 MG/DL (8.8-10.2); CARBON DIOXIDE LEVEL 43 MEQ/L (21-32); CHLORIDE LEVEL 95 MEQ/L (98-107); CREATININE FOR GFR 0.74 MG/DL (0.55-1.30); GLOMERULAR FILTRATION RATE > 60.0 (>45); GLUCOSE, FASTING 93 MG/DL (70-100); POTASSIUM SERUM 3.4 MEQ/L (3.5-5.1); SODIUM LEVEL 140 MEQ/L (136-145)
[2018-05-30] MEDS: BUDESONIDE 0.5 MG/2 ML INHALATION SUSPENSION INH ×2 (07:37→19:21)
[2018-05-30] MEDS: ESCITALOPRAM OXALATE 10 MG TAB (LEXAPRO) PO (08:20)
[2018-05-30] MEDS: FERROUS SULFATE 325MG TAB PO ×2 (08:20→21:10)
[2018-05-30] MEDS: MIDODRINE 5 MG TAB PO ×2 (08:20→16:10)
[2018-05-30] MEDS: lamoTRIgine 100MG TAB PO (08:21)
[2018-05-30] MEDS: VITAMIN D 1,000 INTERNATIONAL UNITS TABLET PO (08:21)
[2018-05-30] MEDS: FAMOTIDINE 20 MG TAB PO (08:22)
[2018-05-30] MEDS: ASPIRIN 81 MG ENTERIC TAB PO (08:22)
[2018-05-30] MEDS: FOLIC ACID 1 MG TAB PO (08:22)
[2018-05-30] MEDS: ALPRAZolam 0.5 MG TAB PO (08:23)
[2018-05-30] MEDS: ASCORBIC ACID 500 MG TAB PO ×2 (08:23→21:10)
[2018-05-30] MEDS: OMEPRAZOLE 20 MG CAP PO ×2 (08:23→21:10)
[2018-05-30] MEDS: SPIRONOLACTONE 25 MG TAB PO ×2 (08:23→13:30)
[2018-05-30] MEDS: predniSONE 20 MG TAB PO (08:23)
[2018-05-30] MEDS: RIVAROXABAN 10 MG TAB (XARELTO) PO (08:23)
[2018-05-30] MEDS: FUROSEMIDE 20 MG/2 ML VIAL (J1940) IV (08:24)
[2018-05-30] MEDS: DOXYCYCLINE HYCLATE 100 MG TAB PO ×2 (10:57→21:10)
[2018-05-30] MEDS: ONDANSETRON 4 MG TAB (S0181) PO (15:35)
[2018-05-30] MEDS: SENNA 8.6 MG TAB (SENOKOT) PO (21:10)
[2018-05-30] MEDS: traZODone 50 MG TAB PO (21:10)
[2018-05-30] MEDS: SIMVASTATIN 20 MG TAB PO (21:10)
[2018-05-31] MEDS: PERCOCET 5MG/325MG TAB PO ×5 (02:48→20:50)
[2018-05-31 05:47] LABS: HEMATOCRIT 29.6 % (36.0-47.0); HEMOGLOBIN 8.7 g/dl (12.0-15.5); MEAN CORPUSCULAR HEMOGLOBIN 25.3 pg (27.0-33.0); MEAN CORPUSCULAR HGB CONC 29.4 g/dl (32.0-36.5); PLATELET COUNT, AUTOMATED 243 10^3/uL (150-450); RED BLOOD COUNT 3.44 10^6/uL (4.00-5.40); RED CELL DISTRIBUTION WIDTH 16.7 % (11.5-14.5); WHITE BLOOD COUNT 9.5 10^3/uL (4.0-10.0)
[2018-05-31 06:08] LABS: ANION GAP 2 MEQ/L (8-16); BLOOD UREA NITROGEN 29 MG/DL (7-18); CALCIUM LEVEL 8.9 MG/DL (8.8-10.2); CARBON DIOXIDE LEVEL 43 MEQ/L (21-32); CHLORIDE LEVEL 95 MEQ/L (98-107); CREATININE FOR GFR 0.82 MG/DL (0.55-1.30); GLOMERULAR FILTRATION RATE > 60.0 (>45); GLUCOSE, FASTING 100 MG/DL (70-100); POTASSIUM SERUM 3.9 MEQ/L (3.5-5.1); SODIUM LEVEL 140 MEQ/L (136-145)
[2018-05-31] MEDS: IPRATROPIUM 0.5MG/ALBUTEROL 2.5MG INH SOL UD 3ML (DUONEB)(J7620) NEB (07:03)
[2018-05-31] MEDS: BUDESONIDE 0.5 MG/2 ML INHALATION SUSPENSION INH ×2 (07:03→21:04)
[2018-05-31] MEDS: SPIRONOLACTONE 25 MG TAB PO ×2 (08:00→13:40)
[2018-05-31] MEDS: RIVAROXABAN 10 MG TAB (XARELTO) PO (08:00)
[2018-05-31] MEDS: MIDODRINE 5 MG TAB PO ×2 (08:00→15:47)
[2018-05-31] MEDS: VITAMIN D 1,000 INTERNATIONAL UNITS TABLET PO (09:52)
[2018-05-31] MEDS: FERROUS SULFATE 325MG TAB PO ×2 (09:53→20:50)
[2018-05-31] MEDS: predniSONE 20 MG TAB PO (09:53)
[2018-05-31] MEDS: FUROSEMIDE 20 MG/2 ML VIAL (J1940) IV (09:53)
[2018-05-31] MEDS: ALPRAZolam 0.5 MG TAB PO (09:53)
[2018-05-31] MEDS: ASCORBIC ACID 500 MG TAB PO ×2 (09:53→20:50)
[2018-05-31] MEDS: OMEPRAZOLE 20 MG CAP PO ×2 (09:54→20:49)
[2018-05-31] MEDS: lamoTRIgine 100MG TAB PO (09:54)
[2018-05-31] MEDS: FAMOTIDINE 20 MG TAB PO (09:54)
[2018-05-31] MEDS: ESCITALOPRAM OXALATE 10 MG TAB (LEXAPRO) PO (09:54)
[2018-05-31] MEDS: DOXYCYCLINE HYCLATE 100 MG TAB PO ×2 (09:55→20:51)
[2018-05-31] MEDS: ASPIRIN 81 MG ENTERIC TAB PO (09:55)
[2018-05-31] MEDS: FOLIC ACID 1 MG TAB PO (09:55)
[2018-05-31] MEDS ORDERED: IPRATROPIUM 0.02% SOLN 0.5MG/2.5 ML NEB INH (11:15)
[2018-05-31] MEDS ORDERED: LEVALBUTEROL 1.25 MG/0.5 ML CONCENTRATE NEB INH (11:15)
[2018-05-31] MEDS: IPRATROPIUM 0.02% SOLN 0.5MG/2.5 ML NEB INH ×3 (11:21→21:04)
[2018-05-31] MEDS: LEVALBUTEROL 1.25 MG/0.5 ML CONCENTRATE NEB INH ×3 (11:21→21:04)
[2018-05-31 12:04] LABS: CPK CREATINE PHOSPHOKINASE 31 U/L (26-192); MB/CK RELATIVE INDEX 7.42 (< OR =4); TROPONIN I < 0.02 NG/ML (< 0.10)
[2018-05-31] MEDS: SENNA 8.6 MG TAB (SENOKOT) PO (20:50)
[2018-05-31] MEDS: SIMVASTATIN 20 MG TAB PO (20:51)
[2018-05-31] MEDS: traZODone 50 MG TAB PO (20:51)
[2018-06-01] MEDS: LEVALBUTEROL 1.25 MG/0.5 ML CONCENTRATE NEB INH ×7 (00:35→23:41)
[2018-06-01] MEDS: IPRATROPIUM 0.02% SOLN 0.5MG/2.5 ML NEB INH ×7 (00:35→23:42)
[2018-06-01] MEDS: PERCOCET 5MG/325MG TAB PO ×5 (04:33→22:23)
[2018-06-01 06:55] LABS: HEMATOCRIT 30.7 % (36.0-47.0); MEAN CORPUSCULAR HEMOGLOBIN 25.6 pg (27.0-33.0); MEAN CORPUSCULAR HGB CONC 29.3 g/dl (32.0-36.5); MEAN CORPUSCULAR VOLUME 87.2 fl (80.0-96.0); PLATELET COUNT, AUTOMATED 252 10^3/uL (150-450); RED BLOOD COUNT 3.52 10^6/uL (4.00-5.40); WHITE BLOOD COUNT 10.4 10^3/uL (4.0-10.0)
[2018-06-01 07:22] LABS: ANION GAP 2 MEQ/L (8-16); BLOOD UREA NITROGEN 28 MG/DL (7-18); CALCIUM LEVEL 8.6 MG/DL (8.8-10.2); CARBON DIOXIDE LEVEL 42 MEQ/L (21-32); CHLORIDE LEVEL 96 MEQ/L (98-107); CREATININE FOR GFR 0.75 MG/DL (0.55-1.30); GLOMERULAR FILTRATION RATE > 60.0 (>45); GLUCOSE, FASTING 101 MG/DL (70-100); POTASSIUM SERUM 4.1 MEQ/L (3.5-5.1); SODIUM LEVEL 140 MEQ/L (136-145)
[2018-06-01] MEDS: BUDESONIDE 0.5 MG/2 ML INHALATION SUSPENSION INH ×2 (07:54→20:13)
[2018-06-01] MEDS: ESCITALOPRAM OXALATE 10 MG TAB (LEXAPRO) PO (08:42)
[2018-06-01] MEDS: ASPIRIN 81 MG ENTERIC TAB PO (08:42)
[2018-06-01] MEDS: VITAMIN D 1,000 INTERNATIONAL UNITS TABLET PO (08:42)
[2018-06-01] MEDS: DOXYCYCLINE HYCLATE 100 MG TAB PO ×2 (08:42→21:55)
[2018-06-01] MEDS: FAMOTIDINE 20 MG TAB PO (08:42)
[2018-06-01] MEDS: lamoTRIgine 100MG TAB PO (08:42)
[2018-06-01] MEDS: predniSONE 10 MG TAB PO (08:42)
[2018-06-01] MEDS: FERROUS SULFATE 325MG TAB PO ×2 (08:42→21:56)
[2018-06-01] MEDS: ASCORBIC ACID 500 MG TAB PO ×2 (08:42→21:55)
[2018-06-01] MEDS: FOLIC ACID 1 MG TAB PO (08:43)
[2018-06-01] MEDS: RIVAROXABAN 10 MG TAB (XARELTO) PO (08:43)
[2018-06-01] MEDS: OMEPRAZOLE 20 MG CAP PO ×2 (08:43→21:56)
[2018-06-01] MEDS: ALPRAZolam 0.5 MG TAB PO (08:43)
[2018-06-01] MEDS: SPIRONOLACTONE 25 MG TAB PO ×2 (08:44→12:48)
[2018-06-01] MEDS: MIDODRINE 5 MG TAB PO ×2 (08:44→15:00)
[2018-06-01] MEDS: traZODone 50 MG TAB PO (21:55)
[2018-06-01] MEDS: SIMVASTATIN 20 MG TAB PO (21:55)
[2018-06-01] MEDS: SENNA 8.6 MG TAB (SENOKOT) PO (21:56)
[2018-06-02] MEDS: PERCOCET 5MG/325MG TAB PO ×5 (02:46→19:30)
[2018-06-02] MEDS: IPRATROPIUM 0.02% SOLN 0.5MG/2.5 ML NEB INH ×5 (03:35→20:04)
[2018-06-02] MEDS: LEVALBUTEROL 1.25 MG/0.5 ML CONCENTRATE NEB INH ×5 (03:35→20:04)
[2018-06-02 05:53] LABS: HEMATOCRIT 30.4 % (36.0-47.0); MEAN CORPUSCULAR HEMOGLOBIN 25.5 pg (27.0-33.0); MEAN CORPUSCULAR HGB CONC 29.6 g/dl (32.0-36.5); MEAN CORPUSCULAR VOLUME 86.1 fl (80.0-96.0); PLATELET COUNT, AUTOMATED 262 10^3/uL (150-450); RED BLOOD COUNT 3.53 10^6/uL (4.00-5.40); RED CELL DISTRIBUTION WIDTH 17.8 % (11.5-14.5); WHITE BLOOD COUNT 10.7 10^3/uL (4.0-10.0)
[2018-06-02 06:18] LABS: ANION GAP 2 MEQ/L (8-16); BLOOD UREA NITROGEN 26 MG/DL (7-18); CALCIUM LEVEL 8.8 MG/DL (8.8-10.2); CARBON DIOXIDE LEVEL 40 MEQ/L (21-32); CHLORIDE LEVEL 99 MEQ/L (98-107); GLOMERULAR FILTRATION RATE > 60.0 (>45); GLUCOSE, FASTING 90 MG/DL (70-100); POTASSIUM SERUM 4.3 MEQ/L (3.5-5.1); SODIUM LEVEL 141 MEQ/L (136-145)
[2018-06-02] MEDS: BUDESONIDE 0.5 MG/2 ML INHALATION SUSPENSION INH ×2 (07:33→20:04)
[2018-06-02] MEDS: DOXYCYCLINE HYCLATE 100 MG TAB PO ×2 (08:24→20:39)
[2018-06-02] MEDS: FERROUS SULFATE 325MG TAB PO ×2 (08:24→20:39)
[2018-06-02] MEDS: RIVAROXABAN 10 MG TAB (XARELTO) PO (08:24)
[2018-06-02] MEDS: predniSONE 10 MG TAB PO (08:24)
[2018-06-02] MEDS: MIDODRINE 5 MG TAB PO ×2 (08:24→15:22)
[2018-06-02] MEDS: ASPIRIN 81 MG ENTERIC TAB PO (08:25)
[2018-06-02] MEDS: ALPRAZolam 0.5 MG TAB PO (08:25)
[2018-06-02] MEDS: ESCITALOPRAM OXALATE 10 MG TAB (LEXAPRO) PO (08:25)
[2018-06-02] MEDS: FOLIC ACID 1 MG TAB PO (08:25)
[2018-06-02] MEDS: FAMOTIDINE 20 MG TAB PO (08:25)
[2018-06-02] MEDS: OMEPRAZOLE 20 MG CAP PO ×2 (08:26→20:39)
[2018-06-02] MEDS: SPIRONOLACTONE 25 MG TAB PO ×2 (08:26→15:23)
[2018-06-02] MEDS: VITAMIN D 1,000 INTERNATIONAL UNITS TABLET PO (08:26)
[2018-06-02] MEDS: ASCORBIC ACID 500 MG TAB PO ×2 (08:26→20:39)
[2018-06-02] MEDS: lamoTRIgine 100MG TAB PO (08:26)
[2018-06-02] MEDS: SENNA 8.6 MG TAB (SENOKOT) PO (20:39)
[2018-06-02] MEDS: SIMVASTATIN 20 MG TAB PO (20:39)
[2018-06-02] MEDS: traZODone 50 MG TAB PO (20:44)
[2018-06-03] MEDS: LEVALBUTEROL 1.25 MG/0.5 ML CONCENTRATE NEB INH ×4 (00:30→11:34)
[2018-06-03] MEDS: IPRATROPIUM 0.02% SOLN 0.5MG/2.5 ML NEB INH ×4 (00:30→11:34)
[2018-06-03] MEDS: PERCOCET 5MG/325MG TAB PO ×3 (03:58→12:23)
[2018-06-03 05:45] LABS: HEMATOCRIT 29.2 % (36.0-47.0); HEMOGLOBIN 8.6 g/dl (12.0-15.5); MEAN CORPUSCULAR HEMOGLOBIN 25.2 pg (27.0-33.0); MEAN CORPUSCULAR HGB CONC 29.5 g/dl (32.0-36.5); MEAN CORPUSCULAR VOLUME 85.6 fl (80.0-96.0); PLATELET COUNT, AUTOMATED 254 10^3/uL (150-450); RED BLOOD COUNT 3.41 10^6/uL (4.00-5.40); RED CELL DISTRIBUTION WIDTH 18.3 % (11.5-14.5); WHITE BLOOD COUNT 11.5 10^3/uL (4.0-10.0)
[2018-06-03 06:05] LABS: ANION GAP 2 MEQ/L (8-16); BLOOD UREA NITROGEN 28 MG/DL (7-18); CALCIUM LEVEL 8.8 MG/DL (8.8-10.2); CARBON DIOXIDE LEVEL 39 MEQ/L (21-32); CHLORIDE LEVEL 98 MEQ/L (98-107); CREATININE FOR GFR 0.87 MG/DL (0.55-1.30); GLOMERULAR FILTRATION RATE > 60.0 (>45); GLUCOSE, FASTING 102 MG/DL (70-100); POTASSIUM SERUM 4.7 MEQ/L (3.5-5.1); SODIUM LEVEL 139 MEQ/L (136-145)
[2018-06-03] MEDS: BUDESONIDE 0.5 MG/2 ML INHALATION SUSPENSION INH (07:41)
[2018-06-03] MEDS: lamoTRIgine 100MG TAB PO (08:32)
[2018-06-03] MEDS: FERROUS SULFATE 325MG TAB PO (08:32)
[2018-06-03] MEDS: SPIRONOLACTONE 25 MG TAB PO (08:32)
[2018-06-03] MEDS: predniSONE 10 MG TAB PO (08:32)
[2018-06-03] MEDS: FAMOTIDINE 20 MG TAB PO (08:32)
[2018-06-03] MEDS: ESCITALOPRAM OXALATE 10 MG TAB (LEXAPRO) PO (08:32)
[2018-06-03] MEDS: DOXYCYCLINE HYCLATE 100 MG TAB PO (08:33)
[2018-06-03] MEDS: OMEPRAZOLE 20 MG CAP PO (08:33)
[2018-06-03] MEDS: FOLIC ACID 1 MG TAB PO (08:33)
[2018-06-03] MEDS: MIDODRINE 5 MG TAB PO (08:33)
[2018-06-03] MEDS: ASPIRIN 81 MG ENTERIC TAB PO (08:33)
[2018-06-03] MEDS: VITAMIN D 1,000 INTERNATIONAL UNITS TABLET PO (08:33)
[2018-06-03] MEDS: ALPRAZolam 0.5 MG TAB PO (08:34)
[2018-06-03] MEDS: ASCORBIC ACID 500 MG TAB PO (08:34)
[2018-06-03] MEDS: RIVAROXABAN 10 MG TAB (XARELTO) PO (08:34)
== END 2018-06-03 13:45 | disposition home health service (06) | DRG 194 ==
LOC: M ED 17:18 → M ED INP 21:15 → M MSPAV 22:45
DX: I50.33 Acute on chronic diastolic (congestive) heart failure (principal); J96.21 Acute and chronic respiratory failure with hypoxia; Z99.81 Dependence on supplemental oxygen; E46 Unspecified protein-calorie malnutrition; J44.1 Chronic obstructive pulmonary disease with (acute) exacerbation; Z79.01 Long term (current) use of anticoagulants; I25.10 Atherosclerotic heart disease of native coronary artery without angina pectoris; K21.9 Gastro-esophageal reflux disease without esophagitis; Z87.891 Personal history of nicotine dependence; Z86.718 Personal history of other venous thrombosis and embolism; Z79.82 Long term (current) use of aspirin; Z79.899 Other long term (current) drug therapy; Z88.5 Allergy status to narcotic agent; Z88.1 Allergy status to other antibiotic agents; Z88.2 Allergy status to sulfonamides; Z88.0 Allergy status to penicillin; Z88.8 Allergy status to other drugs, medicaments and biological substances; I11.0 Hypertensive heart disease with heart failure

== ENCOUNTER → 2018-06-12 | Outpatient (REF) | payer OTHER ==
[~2018-06-12] MED LIST changes: +ALPR0.5T3 PO; +ASPI81TAEC PO; +AZIT500T2 PO; +BREO1INH INH; +BREO1INH3 INH; +BUDE0.5S6 INH; +CLOT1CRE TOP; +DELS30LI4 PO; +DEXT75EL PO; +DOXY-350 PO; +DOXY100T PO; +DOXY100T16 PO; +ESCI20TA PO; +FAMO20TA PO; +FERR1TAB8 PO; +FOLI1TAB11 PO; +IPRA0.00 INH; -IPRASOL4 INH; -LAMO150T PO; +LAMO150T2 PO; +LASI40TA9 PO; +LEXA1TAB PO; +LORA-243 PO; +MIDO5TA PO; +ONDA4TAB5 PO; +PERF20NE2 INH; +PRED5TA PO; +SENN8.6T17 PO; +SPIR-10 PO; -SPIR25TA2 PO; +SPIR50TA4 PO; +VITA250T50 PO; +XARE10TA PO; -ZANT300T PO; +ZANT300T9 PO; -ZOFR20TA PO; +ZOFR4TAB16 PO
[2018-06-12 13:00] LABS: BASO % 0.1 % (0.0-1.0); EOS # 0.3 10^3/uL (0.0-0.50); EOS % 4.1 % (0.0-3.0); LYMPH # 1.6 10^3/uL (1.5-4.5); LYMPH % 22.6 % (24.0-44.0); MEAN CORPUSCULAR HEMOGLOBIN 25.5 pg (27.0-33.0); MEAN CORPUSCULAR HGB CONC 28.6 g/dl (32.0-36.5); MEAN CORPUSCULAR VOLUME 89.3 fl (80.0-96.0); MONO # 0.6 10^3/uL (0.0-0.8); MONO % 8.5 % (0.0-5.0); NEUTROPHILS # 4.6 10^3/uL (1.8-7.7); NEUTROPHILS % 64.1 % (36.0-66.0); PLATELET COUNT, AUTOMATED 305 10^3/uL (150-450); RED BLOOD COUNT 3.92 10^6/uL (4.00-5.40); WHITE BLOOD COUNT 7.1 10^3/uL (4.0-10.0)
== END ==
LOC: M LAB REF 12:41
PROVIDERS: ATTEND Family Medicine
DX: D64.9 Anemia, unspecified (principal)

== ENCOUNTER 2018-06-18 18:05 | Inpatient (IN) | payer OTHER ==
[~2018-06-18] VITALS: Ht 162.6 cm; Wt 105.0 kg
[~2018-06-18 18:05] MED LIST changes: -FOLI1TAB11 PO; +FOLI1TAB5 PO; -LASI40TA9 PO; +ZANT300T PO; -ZANT300T9 PO
--- NOTE | 2018-06-18 18:40 | REP ---
Clinical: Cough and dyspnea . Comparison: 05/27/2018 . Findings: Examination is significantly limited by portable technique, underpenetration and poor inspiratory effort. Pulmonary vascular congestion and interstitial edema cannot be excluded. The mediastinum and cardiac silhouette are stable and within normal limits for portable technique. No obvious effusion. No pneumothorax. Skeletal structures are intact. Impression: Limited portable examination. Likely chronic stable changes but cannot exclude pulmonary vascular congestion/interstitial edema. Electronically Signed by Lee Wolf MD 06/18/2018 06:31 P
[2018-06-18 19:00] LABS: VENOUS BASE EXCESS 9.3 (-2.0-2.0); VENOUS HCO3 38.5 MEQ/L (23.0-27.0); VENOUS O2 SATURATION 91.2 % (60.0-80.0); VENOUS PARTIAL PRESSURE CO2 82.5 mmHg (38.0-50.0); VENOUS PARTIAL PRESSURE O2 62.1 mmHg (30.0-50.0); VENOUS PH 7.287 UNITS (7.330-7.430)
[2018-06-18 19:15] LABS: BASO % 0.1 % (0.0-1.0); EOS # 0.2 10^3/uL (0.0-0.50); EOS % 1.9 % (0.0-3.0); HEMATOCRIT 33.9 % (36.0-47.0); HEMOGLOBIN 9.7 g/dl (12.0-15.5); LYMPH # 1.3 10^3/uL (1.5-4.5); LYMPH % 14.5 % (24.0-44.0); MEAN CORPUSCULAR HEMOGLOBIN 26.1 pg (27.0-33.0); MEAN CORPUSCULAR HGB CONC 28.6 g/dl (32.0-36.5); MEAN CORPUSCULAR VOLUME 91.4 fl (80.0-96.0); MONO # 0.5 10^3/uL (0.0-0.8); MONO % 5.8 % (0.0-5.0); NEUTROPHILS # 6.8 10^3/uL (1.8-7.7); NEUTROPHILS % 77.4 % (36.0-66.0); PLATELET COUNT, AUTOMATED 196 10^3/uL (150-450); RED BLOOD COUNT 3.71 10^6/uL (4.00-5.40); WHITE BLOOD COUNT 8.8 10^3/uL (4.0-10.0)
[2018-06-18 19:38] LABS: ALT/SGPT 23 U/L (12-78); BILIRUBIN,DIRECT < 0.1 MG/DL (0.0-0.2); BILIRUBIN,TOTAL 0.3 MG/DL (0.2-1.0); BLOOD UREA NITROGEN 17 MG/DL (7-18); CALCIUM LEVEL 8.7 MG/DL (8.8-10.2); CARBON DIOXIDE LEVEL 34 MEQ/L (21-32); CHLORIDE LEVEL 100 MEQ/L (98-107); CPK CREATINE PHOSPHOKINASE 140 U/L (26-192); CREATININE FOR GFR 0.72 MG/DL (0.55-1.30); GLOMERULAR FILTRATION RATE > 60.0 (>45); GLUCOSE, FASTING 110 MG/DL (70-100); MB/CK RELATIVE INDEX 0.93 (< OR =4); NT-PRO BNP 115 PG/ML (<125); POTASSIUM SERUM 5.7 MEQ/L (3.5-5.1); SODIUM LEVEL 138 MEQ/L (136-145); THYROID STIMULATING HORMONE 0.603 uIU/ML (0.358-3.740); TOTAL PROTEIN 6.6 GM/DL (6.4-8.2); TROPONIN I < 0.02 NG/ML (< 0.10)
[2018-06-18] MEDS ORDERED: IPRATROPIUM 0.5MG/ALBUTEROL 2.5MG INH SOL UD 3ML (DUONEB)(J7620) NEB PRN (19:45)
[2018-06-18] MEDS ORDERED: ACETAMINOPHEN TAB 650MG DOSE (2X325MG) PO ONE (19:45)
[2018-06-18] MEDS ORDERED: methylPREDNISolone INJ 125 MG/2 ML VIAL (J2930) IV ONE (19:45)
[2018-06-18] MEDS ORDERED: predniSONE 20 MG TAB PO ONE (20:00)
[2018-06-18] MEDS ORDERED: ISOVUE-370 76% 100ML VIAL (Q9967) As Ordered ONE (20:07)
[2018-06-18] MEDS ORDERED: ONDANSETRON 4MG/2ML VIAL (J2405) IV ONE (20:45)
--- NOTE | 2018-06-18 21:30 | REPVR ---
EXAM: CT Chest Without Contrast EXAM DATE/TIME: 06/18/2018 8:28 PM CLINICAL HISTORY: 58 years old, female; Signs and symptoms; Fever and shortness of breath; Additional info: Fever, SOB TECHNIQUE: Axial computed tomography images of the chest without intravenous contrast. All CT scans at this facility use at least one of these dose optimization techniques: automated exposure control; mA and/or kV adjustment per patient size (includes targeted exams where dose is matched to clinical indication); or iterative reconstruction. Coronal and sagittal reformatted images were created and reviewed. MIP reconstructed images were created and reviewed. COMPARISON: CT Chest without contrast 04/11/2018 12:46 PM FINDINGS: Lungs: Minimal diffuse bullous change with minimal scattered fibro-atelectatic change, greatest in the left lower lobe. No focal infiltrates. Pleural space: Normal. No pneumothorax. No pleural effusion. Heart: Coronary artery calcifications are present, particularly in the LAD. Pulmonary arteries: The main pulmonary artery measures 35 mm. Aorta: The ascending thoracic aorta measures 32 mm. Lymph nodes: Unremarkable. No enlarged lymph nodes. Bones/joints: Moderate wedge compression of T6 which is unchanged. Soft tissues: Unremarkable. IMPRESSION: 1. There has been little change from 04/11/2018. No acute interval process is identified. 2. Minimal diffuse bullous change with minimal scattered fibro-atelectatic change and some interstitial prominence. Electronically signed by: Norberto Reardon On 06/18/2018 21:30:04 PM
[2018-06-18] MEDS ORDERED: lamoTRIgine 100MG TAB PO ONE (22:45)
[2018-06-18] MEDS ORDERED: ONDANSETRON 4 MG TAB (S0181) PO PRN (22:45)
[2018-06-18] MEDS ORDERED: ACETAMINOPHEN TAB 650MG DOSE (2X325MG) PO PRN (23:15)
[2018-06-18] MEDS: PERCOCET 5MG/325MG TAB PO PRN (23:30)
[2018-06-19] MEDS ORDERED: SOD POLYSTYRENE SULFONATE SUSP 15 GM/60 ML UD PO ONE
[2018-06-19 01:30] VITALS: BP 129/66
[2018-06-19] MEDS: SIMVASTATIN 20 MG TAB PO SCH ×2 (01:58→21:09)
[2018-06-19] MEDS: DOXYCYCLINE HYCLATE 100 MG in D5W MINI-BAG PLUS 100 ML IV SCH ×3 (01:58→23:11)
[2018-06-19] MEDS: IPRATROPIUM 0.5MG/ALBUTEROL 2.5MG INH SOL UD 3ML (DUONEB)(J7620) NEB SCH ×4 (02:00→19:27)
[2018-06-19] MEDS: PERCOCET 5MG/325MG TAB PO PRN ×5 (04:01→21:10)
[2018-06-19 06:00] VITALS: BP 132/76
[2018-06-19 06:06] LABS: HEMATOCRIT 32.1 % (36.0-47.0); HEMOGLOBIN 9.3 g/dl (12.0-15.5); MEAN CORPUSCULAR HEMOGLOBIN 26.1 pg (27.0-33.0); MEAN CORPUSCULAR VOLUME 89.9 fl (80.0-96.0); PLATELET COUNT, AUTOMATED 185 10^3/uL (150-450); RED BLOOD COUNT 3.57 10^6/uL (4.00-5.40); WHITE BLOOD COUNT 7.3 10^3/uL (4.0-10.0)
[2018-06-19 06:37] LABS: BLOOD UREA NITROGEN 16 MG/DL (7-18); CALCIUM LEVEL 9.2 MG/DL (8.8-10.2); CARBON DIOXIDE LEVEL 36 MEQ/L (21-32); CHLORIDE LEVEL 98 MEQ/L (98-107); GLOMERULAR FILTRATION RATE > 60.0 (>45); GLUCOSE, FASTING 135 MG/DL (70-100); POTASSIUM SERUM 4.5 MEQ/L (3.5-5.1); SODIUM LEVEL 137 MEQ/L (136-145); TROPONIN I < 0.02 NG/ML (< 0.10)
[2018-06-19] MEDS: FAMOTIDINE 20 MG TAB PO SCH (08:48)
[2018-06-19] MEDS: FERROUS SULFATE 325MG TAB PO SCH (08:48)
[2018-06-19] MEDS: RIVAROXABAN 10 MG TAB (XARELTO) PO SCH (08:48)
[2018-06-19] MEDS: CYANOCOBALAMIN 250 MCG TABLET PO SCH (08:48)
[2018-06-19] MEDS: predniSONE 20 MG TAB PO SCH (08:49)
[2018-06-19] MEDS: OMEPRAZOLE 20 MG CAP PO SCH ×2 (08:49→21:09)
[2018-06-19] MEDS: VITAMIN D 1,000 INTERNATIONAL UNITS TABLET PO SCH (08:49)
[2018-06-19] MEDS: ESCITALOPRAM OXALATE 10 MG TAB (LEXAPRO) PO SCH (08:49)
[2018-06-19] MEDS: FOLIC ACID 1 MG TAB PO SCH (08:49)
[2018-06-19] MEDS: ASPIRIN 81 MG ENTERIC TAB PO SCH (08:49)
[2018-06-19] MEDS: SPIRONOLACTONE 25 MG TAB PO SCH ×2 (08:50→16:32)
[2018-06-19] MEDS: ALPRAZolam 0.5 MG TAB PO SCH (08:50)
[2018-06-19] MEDS: MIDODRINE 5 MG TAB PO SCH ×2 (08:50→16:32)
[2018-06-19] MEDS: FLUTICASONE HFA 220 MCG 12 GM INHALER (FLOVENT) INH SCH (08:58)
[2018-06-19] MEDS ORDERED: DOXYCYCLINE HYCLATE 100 MG TAB PO SCH (09:00)
--- NOTE | 2018-06-19 13:03 | IPN ---
DATE OF VISIT: 06/19/2018 SUBJECTIVE: Patient is seen and examined in the room today. Patient stated her nausea and vomiting has resolved. Patient feels that her breathing has been improving, approaching her baseline. Now reported. OBJECTIVE: VITAL SIGNS: Temperature 97.3, pulse 91, respirations 19, blood pressure 132//76, pulse oximetry 93% with 2 liter nasal cannula. GENERAL: Morbidly obese. No sign of acute distress. Alert and oriented times three. HEENT: Normocephalic, atraumatic. Extraocular motor grossly intact. CARDIOVASCULAR: Positive S1, S2. Regular rate. LUNGS: Very diminished breath sounds. There is some mild expiratory wheezes near the end of expiration. ABDOMEN: Obese, soft, nontender, nondistended. Bowel sounds present. EXTREMITIES: Mild peripheral edema. LABORATORY DATA: WBC 7.3, hemoglobin 9.3, hematocrit is 32.1, platelet count is 185. Sodium is 137, potassium 4.5, chloride 98, carbon dioxide 36, BUN 16, creatinine 0.7, GFR greater than 60, fasting glucose 135, calcium 9.2. Troponin I less than 0.02. ASSESSMENT AND PLAN: 1. Chronic obstructive pulmonary disease (COPD) exacerbation. On admission, patient was thought to have COPD exacerbation. She was started on nebulizer treatments. Patient was given high dose of steroids in the emergency room and patient started on doxycycline due to allergy to multiple antibiotics. At the time of this morning's encounter, patient feels her breathing is close to her baseline. Patient maintained satisfactory oxygen saturation with 2 liter nasal cannula. Continue tapering the patient's steroid as tolerated. Continue with doxycycline. Anticipate discharge in the next 24-48 hours. 2. Nausea and vomiting. Since admission, there is no recurrence of nausea or vomiting. Patient tolerated diet well. Will continue to monitor symptoms. 3. Chronic diastolic congestive heart failure. No sign of fluid overload at this moment on spironolactone. 4. History of deep venous thrombosis (DVT) prophylaxis/pulmonary embolism (PE). On Xarelto. 5. Pulmonary hypertension. On diuretics. 6. Anxiety/depression. On Xanax, which is patient's home medication. 7. Gastroesophageal reflux disease. On Prilosec. 8. Deep venous thrombosis (DVT) prophylaxis. On Xarelto.
[2018-06-19 14:00] VITALS: BP 134/68
--- NOTE | 2018-06-19 15:41 | HPE ---
DATE OF ADMISSION: 06/18/2018 HISTORY AND PHYSICAL: 58-year-old white female with a history of chronic obstructive pulmonary disease (COPD). She has a history of multiple admissions for COPD exacerbations. She presents with increasing shortness of breath and productive sputum of a yellow nature. Symptoms began in the last few days. She stated her temperature was 101 yesterday. She has also had nausea and vomiting a couple times a day and she has generalized aches and pains. She has a lot of leg pain, back pain, and headache. She is on chronic Percocet at home. She denies any abdominal pain. No new medications. No one else at home is ill. She denies any abdominal procedures other than bladder surgery in the remote past. She did have a CT of the chest, which shows only chronic changes. She had a venous gas done and arterial blood gas is pending. Her white blood cell count is 8800. ALLERGIES are MULTIPLE ALLERGIES: She says the only thing she can take is doxycycline for an antibiotic. She is allergic to everything else according to her records. She is even allergic to METHYLPREDNISOLONE apparently. Please refer to her records to see her complete documentation of her allergies or adverse reactions. I suspect these are probably adverse reactions rather than true allergies. MEDICATIONS: She was recently discharged about a week ago; she is on: - Xanax 1 mg daily - baby aspirin - vitamin D - vitamin B12 - Lexapro 20 mg - Pepcid 20 mg - ferrous sulfate 325 mg - Breo Ellipta - folic acid 1 mg - lamotrigine 150 mg for mental health - midodrine for orthostatic hypotension 5 mg twice a day - omeprazole 40 mg - Xarelto 10 mg with history of deep venous thrombosis (DVT) - Senna - simvastatin 20 mg - spirolactone 25 mg - trazodone 150 mg as needed - nebulizers with albuterol and DuoNebs - nitroglycerin as needed - Zofran as needed for nausea - Percocet for chronic pain SOCIAL HISTORY: She stopped smoking about 7 years ago. She does have a proxy, her sister. She is a FULL [employer]. She lives alone at home. PAST MEDICAL HISTORY: 1. History of prior DVT. 2. History of COPD exacerbations. 3. History of iron deficient anemia. 4. Coronary artery disease. 5. Hypertension. 6. Gastroesophageal reflux disease (GERD). 7. Nicotine abuse. 8. Chronic pain. REVIEW OF SYSTEMS: General: Fever and just not feeling well. HEENT: Headache. Cardiopulmonary: Shortness of breath. Gastrointestinal (GI): Nausea and vomiting as discussed. No abdominal pain. Genitourinary (): Negative. Musculoskeletal: Headache and back pain, arm pain and leg pain. Vascular: History of DVT. She says it was remote. I wonder if she needs to be on continued anticoagulation. I do not know the details of this, but I see she has had subsequent vascular ultrasounds in the emergency room (ER), which have been negative. Hematologic: Chronic anemia, for which she is on iron and B12. I am not aware if she has had any prior endoscopies. I do not see any in her record. She has had multiple leg and foot surgeries, she says. PHYSICAL EXAMINATION Vital signs: Temperature is 100.1, blood pressure 133/68, pulse 84, oxygen saturation 93% on 2 liters. General appearance: Overweight white female. HEENT is grossly unremarkable. She is edentulous. Neck is without jugular venous distention (JVD). Heart was regular with distant tones. Chest: Markedly diminished breath sounds, a few wheezes at the bases. Abdomen was obese, otherwise unremarkable. Extremities: She has bilateral edema lower extremities to the level of the mid calf. Neurologic is intact. IMPRESSION: 1. Chronic obstructive pulmonary disease exacerbation. 2. Multiple other medical problems as noted, not limited to limited to remote deep venous thrombosis, see discussion above. Old records also note coronary artery disease and decompensated congestive heart failure (CHF) but certainly there is no issue with these this evening. 3. Nausea, vomiting of uncertain etiology. I believe this is probably a chronic thing. I see she is on Zofran at home. 4. Chronic pain. She is requesting her Percocet. 5. Chronic anemia, presumed stable. I do not see any GI evaluation in her records. 6. Polypharmacy.
--- NOTE | 2018-06-19 17:01 | ECGEPIP ---
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
[2018-06-19] MEDS ORDERED: traZODone 50 MG TAB PO SCH (21:00)
[2018-06-19] MEDS ORDERED: SENNA 8.6 MG TAB (SENOKOT) PO SCH (21:00)
[2018-06-19 22:00] VITALS: BP 124/62
[2018-06-20] MEDS: PERCOCET 5MG/325MG TAB PO PRN ×2 (04:43→08:52)
[2018-06-20 05:15] VITALS: BP 132/62
[2018-06-20] MEDS: IPRATROPIUM 0.5MG/ALBUTEROL 2.5MG INH SOL UD 3ML (DUONEB)(J7620) NEB SCH ×2 (05:54→08:18)
[2018-06-20 06:00] VITALS: BP 118/67
[2018-06-20 06:35] LABS: HEMATOCRIT 29.1 % (36.0-47.0); HEMOGLOBIN 8.6 g/dl (12.0-15.5); MEAN CORPUSCULAR HEMOGLOBIN 26.2 pg (27.0-33.0); MEAN CORPUSCULAR HGB CONC 29.6 g/dl (32.0-36.5); MEAN CORPUSCULAR VOLUME 88.7 fl (80.0-96.0); PLATELET COUNT, AUTOMATED 174 10^3/uL (150-450); RED BLOOD COUNT 3.28 10^6/uL (4.00-5.40); WHITE BLOOD COUNT 5.7 10^3/uL (4.0-10.0)
[2018-06-20 07:01] LABS: BLOOD UREA NITROGEN 26 MG/DL (7-18); CARBON DIOXIDE LEVEL 36 MEQ/L (21-32); CHLORIDE LEVEL 100 MEQ/L (98-107); CREATININE FOR GFR 0.77 MG/DL (0.55-1.30); GLOMERULAR FILTRATION RATE > 60.0 (>45); GLUCOSE, FASTING 107 MG/DL (70-100); POTASSIUM SERUM 3.9 MEQ/L (3.5-5.1); SODIUM LEVEL 139 MEQ/L (136-145)
[2018-06-20] MEDS ORDERED: PRED10TA2 PO (07:56)
[2018-06-20] MEDS ORDERED: DOXY-350 PO (07:58)
[2018-06-20] MEDS: FLUTICASONE HFA 220 MCG 12 GM INHALER (FLOVENT) INH SCH (08:18)
[2018-06-20] MEDS: ESCITALOPRAM OXALATE 10 MG TAB (LEXAPRO) PO SCH (08:50)
[2018-06-20] MEDS: ALPRAZolam 0.5 MG TAB PO SCH (08:51)
[2018-06-20] MEDS: SPIRONOLACTONE 25 MG TAB PO SCH (08:51)
[2018-06-20] MEDS: RIVAROXABAN 10 MG TAB (XARELTO) PO SCH (08:52)
[2018-06-20] MEDS: CYANOCOBALAMIN 250 MCG TABLET PO SCH (08:52)
[2018-06-20] MEDS: FERROUS SULFATE 325MG TAB PO SCH (08:53)
[2018-06-20] MEDS: predniSONE 20 MG TAB PO SCH (08:53)
[2018-06-20] MEDS: MIDODRINE 5 MG TAB PO SCH (08:53)
[2018-06-20] MEDS: OMEPRAZOLE 20 MG CAP PO SCH (08:53)
[2018-06-20] MEDS: VITAMIN D 1,000 INTERNATIONAL UNITS TABLET PO SCH (08:54)
[2018-06-20] MEDS: FOLIC ACID 1 MG TAB PO SCH (08:54)
[2018-06-20] MEDS: FAMOTIDINE 20 MG TAB PO SCH (08:55)
[2018-06-20] MEDS: ASPIRIN 81 MG ENTERIC TAB PO SCH (08:55)
--- NOTE | 2018-06-20 20:33 | DSES ---
DATE OF ADMISSION: 06/18/2018 DATE OF DISCHARGE: 06/20/2018 PRIMARY CARE PROVIDER: Sukhdev Conde CONSULTANTS: None. DISCHARGE DIAGNOSES: 1. Chronic obstructive pulmonary disease (COPD) exacerbation. 2. Nausea and vomiting. 3. Chronic diastolic congestive heart failure (CHF). 4. History of deep vein thrombosis (DVT) and pulmonary embolus, on anticoagulation. 5. Hypertension. 6. Anxiety and depression. 7. Gastroesophageal reflux disease (GERD). HOSPITALIZATION COURSE: The patient is a 58-year-old female who presented to [facility] on 06/18/2018 with complaint of increasing shortness of breath. The patient was admitted under the hospitalist service for COPD exacerbation. The patient was started on steroids and doxycycline. For COPD exacerbation treatment, the patient's breathing continued to improve. On 06/20/2018, the patient's respiratory status has returned to baseline. The patient was determined to be stable for discharge with recommendation to followup with primary care provider in 1 week. OBJECTIVE: VITAL SIGNS: Temperature is 96.8, pulse 83, respirations 20, blood pressure 118/67, pulse oximetry 94% on 2 liters nasal cannula. LABORATORY DATA: On the date of discharge: WBC 5.7, hemoglobin 8.6, hematocrit 29.1, platelet count is 174. Sodium 136, potassium 3.9, chloride 100, carbon dioxide 36, BUN 26, creatinine 0.7, GFR greater than 60, fasting glucose 107, calcium 9. Urinalysis is negative. Microbiology: Respiratory panel is negative. Blood culture preliminary showed no growth after 48 hours times two sets. IMAGING: Chest x-ray showed limited . CT of the chest without contrast showed no acute interval process is noted. Minimal diffuse bullous change with minimal scattered fibroatelectatic change and interstitial prominence. DISCHARGE MEDICATIONS: - doxycycline 100 mg by mouth twice a day for 5 days - prednisone taper - Ventolin two puff inhalation every 4 hours as needed - ipratropium one inhalation every 4 hours as needed - alprazolam 1 mg by mouth daily - aspirin 81 mg by mouth daily - vitamin D3 2000 units by mouth daily - vitamin B12 250 mcg by mouth daily - escitalopram 20 mg by mouth daily - potassium 20 mEq by mouth daily - ferrous sulfate 325 mg by mouth daily - Breo one inhalation daily - folic acid 1 mg by mouth daily - lamotrigine 3 mg by mouth daily - 5 mg by mouth twice a day - nitroglycerin 0.4 mg sublingually as needed for chest pain - omeprazole 40 mg by mouth twice a day - ondansetron 4 mg by mouth every 6 hours as needed for nausea - Percocet one tablet by mouth every 4 hours as needed - Xarelto 10 mg by mouth daily - Senna two tablets by mouth at night - Zocor 20 mg by mouth at night - spironolactone 25 mg by mouth twice a day - trazodone 50 mg by mouth at night DISCHARGE INSTRUCTIONS: Discontinue line. Discharge home. Low salt diet as tolerated. Activity as tolerated. The patient should followup with the primary care provider in 1 week. Discharge condition is fair. Discharge time was greater than 30 minutes.
== END 2018-06-20 09:15 | disposition home health service (06) | DRG 140 ==
LOC: EDBD 18:05 → M ED 18:05 → M ED INP 22:58 → M MS5PR 06-19 01:15
PROVIDERS: ATTEND Internal Medicine
DX: J44.1 Chronic obstructive pulmonary disease with (acute) exacerbation (principal); I11.0 Hypertensive heart disease with heart failure; I27.20 Pulmonary hypertension, unspecified; I50.32 Chronic diastolic (congestive) heart failure; R11.2 Nausea with vomiting, unspecified; F41.9 Anxiety disorder, unspecified; F32.9 Major depressive disorder, single episode, unspecified; D50.9 Iron deficiency anemia, unspecified; G89.29 Other chronic pain; K21.9 Gastro-esophageal reflux disease without esophagitis; I25.10 Atherosclerotic heart disease of native coronary artery without angina pectoris; Z86.718 Personal history of other venous thrombosis and embolism; Z79.01 Long term (current) use of anticoagulants; Z79.899 Other long term (current) drug therapy; Z79.82 Long term (current) use of aspirin; Z79.891 Long term (current) use of opiate analgesic; Z87.891 Personal history of nicotine dependence; Z86.711 Personal history of pulmonary embolism

== ENCOUNTER 2018-06-29 12:32 | Emergency (ER) | payer OTHER ==
[~2018-06-29] VITALS: Ht 162.6 cm; Wt 101.8 kg
[~2018-06-29 12:32] MED LIST changes: +FOLI1TAB11 PO; -FOLI1TAB5 PO; +LASI40TA9 PO; -ZANT300T PO; +ZANT300T9 PO
[2018-06-29] MEDS ORDERED: ONDANSETRON 4MG/2ML VIAL (J2405) IV ONE (13:15)
[2018-06-29] MEDS ORDERED: TORS20TA2 PO (13:20)
[2018-06-29 13:32] LABS: BASO % 0.4 % (0.0-1.0); EOS # 0.3 10^3/uL (0.0-0.50); EOS % 3.6 % (0.0-3.0); HEMATOCRIT 37.7 % (36.0-47.0); HEMOGLOBIN 11.1 g/dl (12.0-15.5); LYMPH # 1.7 10^3/uL (1.5-4.5); MEAN CORPUSCULAR HEMOGLOBIN 26.4 pg (27.0-33.0); MEAN CORPUSCULAR HGB CONC 29.4 g/dl (32.0-36.5); MEAN CORPUSCULAR VOLUME 89.5 fl (80.0-96.0); MONO % 13.7 % (0.0-5.0); NEUTROPHILS # 4.3 10^3/uL (1.8-7.7); NEUTROPHILS % 58.6 % (36.0-66.0); PLATELET COUNT, AUTOMATED 363 10^3/uL (150-450); RED BLOOD COUNT 4.21 10^6/uL (4.00-5.40); WHITE BLOOD COUNT 7.3 10^3/uL (4.0-10.0)
[2018-06-29 13:57] LABS: CPK CREATINE PHOSPHOKINASE 47 U/L (26-192); MB/CK RELATIVE INDEX 4.89 (< OR =4); TROPONIN I < 0.02 NG/ML (< 0.10)
[2018-06-29 13:58] LABS: ALBUMIN 3.3 GM/DL (3.2-5.2); ALT/SGPT 29 U/L (12-78); BILIRUBIN,TOTAL 0.1 MG/DL (0.2-1.0); BLOOD UREA NITROGEN 26 MG/DL (7-18); CALCIUM LEVEL 9.6 MG/DL (8.8-10.2); CARBON DIOXIDE LEVEL 36 MEQ/L (21-32); CHLORIDE LEVEL 93 MEQ/L (98-107); GLOMERULAR FILTRATION RATE > 60.0 (>45); GLUCOSE, FASTING 100 MG/DL (70-100); LIPASE 206 U/L (73-393); NT-PRO BNP 59 PG/ML (<125); POTASSIUM SERUM 5.1 MEQ/L (3.5-5.1); SODIUM LEVEL 136 MEQ/L (136-145); TOTAL PROTEIN 6.9 GM/DL (6.4-8.2)
--- NOTE | 2018-06-29 14:00 | REP ---
KUB: Two views. History: Shortness of breath. Productive cough. Comparison study: January 20, 2018. Findings: There is moderate stool in the right colon and some formed stool is seen in the left colon. No colonic dilation is appreciated. No small bowel dilation is observed. There is a hip arthroplasty noted on the right. Degenerative changes are seen in the lumbar spine. Impression: Normal bowel gas pattern. Moderate proximal colonic stool. Electronically Signed by Braden Garrett MD 06/29/2018 02:32 P
--- NOTE | 2018-06-29 14:01 | REP ---
Chest x-ray: Two views. History: Short of breath. Productive cough. Comparison study: June 18, 2018. Findings: EKG monitoring electrodes are seen overlying the chest. There appears to be a loop recorder in the presternal soft tissues. Heart is mildly enlarged, unchanged. Pulmonary vasculature is not increased. No infiltrate is seen. Pleural angles are sharp. There are degenerative changes in the thoracic spine and there is wedging in one of the mid-thoracic vertebrae. This is unchanged from April 11, 2018 prior lateral chest x-ray. Impression: Mildly prominent heart. Otherwise no active disease. Electronically Signed by Braden Garrett MD 06/29/2018 02:32 P
[2018-06-29] MEDS ORDERED: [UNRECOGNIZED DRUG - CODE] XX (15:51)
[2018-06-29 16:00] VITALS: BP 104/56
--- NOTE | 2018-06-29 16:58 | ECGEPIP ---
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
== END 2018-06-29 16:57 | disposition home or self-care (01) ==
LOC: M ED 12:32 → EDBD 12:32 → M ED 16:57
DX: R11.0 Nausea (principal); M79.89 Other specified soft tissue disorders; R06.02 Shortness of breath; I11.0 Hypertensive heart disease with heart failure; I50.9 Heart failure, unspecified; J44.9 Chronic obstructive pulmonary disease, unspecified; E78.9 Disorder of lipoprotein metabolism, unspecified; Z99.81 Dependence on supplemental oxygen; Z87.891 Personal history of nicotine dependence; Z88.1 Allergy status to other antibiotic agents; Z88.5 Allergy status to narcotic agent; Z88.0 Allergy status to penicillin; Z88.2 Allergy status to sulfonamides; Z88.8 Allergy status to other drugs, medicaments and biological substances; Z79.899 Other long term (current) drug therapy; Z79.01 Long term (current) use of anticoagulants
CPT/HCPCS: 71046; 74018; 80053; 82550; 82553; 83690; 83880; 85025; 93005; 94760; 96374; 99284; J2405

== ENCOUNTER → 2018-07-19 | Outpatient (REF) | payer OTHER ==
[~2018-07-19] MED LIST changes: +[UNRECOGNIZED DRUG - CODE] XX
[2018-07-19 17:17] LABS: BASO % 0.5 % (0.0-1.0); EOS # 0.5 10^3/uL (0.0-0.50); HEMATOCRIT 41.6 % (36.0-47.0); HEMOGLOBIN 12.6 g/dl (12.0-15.5); LYMPH # 1.9 10^3/uL (1.5-4.5); MEAN CORPUSCULAR HEMOGLOBIN 26.7 pg (27.0-33.0); MEAN CORPUSCULAR HGB CONC 30.3 g/dl (32.0-36.5); MEAN CORPUSCULAR VOLUME 88.1 fl (80.0-96.0); MONO # 0.7 10^3/uL (0.0-0.8); MONO % 8.9 % (0.0-5.0); NEUTROPHILS # 4.2 10^3/uL (1.8-7.7); NEUTROPHILS % 57.3 % (36.0-66.0); PLATELET COUNT, AUTOMATED 238 10^3/uL (150-450); RED BLOOD COUNT 4.72 10^6/uL (4.00-5.40); WHITE BLOOD COUNT 7.4 10^3/uL (4.0-10.0)
[2018-07-19 17:33] LABS: BLOOD UREA NITROGEN 19 MG/DL (7-18); CALCIUM LEVEL 9.2 MG/DL (8.8-10.2); CARBON DIOXIDE LEVEL 31 MEQ/L (21-32); CHLORIDE LEVEL 100 MEQ/L (98-107); CREATININE FOR GFR 0.83 MG/DL (0.55-1.30); GLOMERULAR FILTRATION RATE > 60.0 (>45); GLUCOSE, FASTING 117 MG/DL (70-100); POTASSIUM SERUM 4.3 MEQ/L (3.5-5.1); SODIUM LEVEL 139 MEQ/L (136-145)
[2018-07-19 19:48] LABS: ERYTHROCYTE SEDIMENTATION RATE 39 mm/hr (0-30)
== END ==
LOC: M LAB REF 16:54
PROVIDERS: ATTEND Family Medicine
DX: R25.2 Cramp and spasm (principal); R19.7 Diarrhea, unspecified

== ENCOUNTER → 2018-08-06 | Outpatient (CLI) | payer OTHER ==
[~2018-08-06] MED LIST changes: +DALI1TAB2 PO
[2018-08-06 14:10] LABS: BASO % 0.5 % (0.0-1.0); EOS % 12.1 % (0.0-3.0); HEMOGLOBIN 12.3 g/dl (12.0-15.5); LYMPH # 1.6 10^3/uL (1.5-4.5); LYMPH % 20.7 % (24.0-44.0); MEAN CORPUSCULAR HEMOGLOBIN 26.5 pg (27.0-33.0); MEAN CORPUSCULAR VOLUME 88.2 fl (80.0-96.0); MONO # 0.8 10^3/uL (0.0-0.8); MONO % 9.7 % (0.0-5.0); NEUTROPHILS # 4.5 10^3/uL (1.8-7.7); NEUTROPHILS % 56.7 % (36.0-66.0); PLATELET COUNT, AUTOMATED 274 10^3/uL (150-450); RED BLOOD COUNT 4.65 10^6/uL (4.00-5.40); WHITE BLOOD COUNT 7.9 10^3/uL (4.0-10.0)
[2018-08-06 14:30] LABS: BLOOD UREA NITROGEN 12 MG/DL (7-18); CALCIUM LEVEL 9.5 MG/DL (8.8-10.2); CARBON DIOXIDE LEVEL 36 MEQ/L (21-32); CHLORIDE LEVEL 96 MEQ/L (98-107); CREATININE FOR GFR 0.76 MG/DL (0.55-1.30); GLOMERULAR FILTRATION RATE > 60.0 (>45); GLUCOSE, FASTING 90 MG/DL (70-100); POTASSIUM SERUM 4.1 MEQ/L (3.5-5.1); SODIUM LEVEL 137 MEQ/L (136-145)
[2018-08-06 15:17] LABS: ERYTHROCYTE SEDIMENTATION RATE 43 mm/hr (0-30)
--- NOTE | 2018-08-13 16:12 | REP ---
Clinical: Generalized pain. Technique: PA and lateral. Comparison: 06/29/2018. Findings: Mediastinum and cardiac silhouette are stable. Lung white are essentially clear. No consolidation, effusion, or pneumothorax. Skeletal structures are intact. Impression: Stable chest x-ray. No acute cardiopulmonary process identified. Electronically Signed by Lee Wolf MD 08/13/2018 04:03 P
== END ==
LOC: M LAB 13:09
PROVIDERS: ATTEND Family Medicine
DX: R63.8 Other symptoms and signs concerning food and fluid intake (principal)

== ENCOUNTER 2018-08-13 20:41 | Inpatient (IN) | payer OTHER ==
[~2018-08-13] VITALS: Ht 162.6 cm; Wt 105.1 kg
[~2018-08-13 20:41] MED LIST changes: -DALI1TAB2 PO
[2018-08-13 21:15] LABS: BASO # 0.1 10^3/uL (0.0-0.2); BASO % 0.7 % (0.0-1.0); EOS # 0.5 10^3/uL (0.0-0.50); EOS % 7.2 % (0.0-3.0); HEMATOCRIT 38.1 % (36.0-47.0); HEMOGLOBIN 11.4 g/dl (12.0-15.5); LYMPH # 1.8 10^3/uL (1.5-4.5); LYMPH % 25.5 % (24.0-44.0); MEAN CORPUSCULAR HEMOGLOBIN 26.6 pg (27.0-33.0); MEAN CORPUSCULAR HGB CONC 29.9 g/dl (32.0-36.5); MONO # 0.5 10^3/uL (0.0-0.8); MONO % 7.1 % (0.0-5.0); NEUTROPHILS # 4.1 10^3/uL (1.8-7.7); NEUTROPHILS % 59.2 % (36.0-66.0); PLATELET COUNT, AUTOMATED 211 10^3/uL (150-450); RED BLOOD COUNT 4.28 10^6/uL (4.00-5.40); WHITE BLOOD COUNT 6.9 10^3/uL (4.0-10.0)
[2018-08-13] MEDS ORDERED: dexameTHASONE 20 MG/5 ML VIAL (J1100) IV ONE (21:30)
[2018-08-13] MEDS ORDERED: ALBUTEROL SULFATE 2.5 MG/0.5 ML INH NEB SOLN INH ONE (21:30)
[2018-08-13] MEDS ORDERED: IPRATROPIUM 0.5MG/ALBUTEROL 2.5MG INH SOL UD 3ML (DUONEB)(J7620) NEB ONE (21:30)
[2018-08-13] MEDS ORDERED: PERCOCET 5MG/325MG TAB PO ONE (21:30)
[2018-08-13 21:40] LABS: BLOOD UREA NITROGEN 13 MG/DL (7-18); CALCIUM LEVEL 9.5 MG/DL (8.8-10.2); CARBON DIOXIDE LEVEL 35 MEQ/L (21-32); CHLORIDE LEVEL 101 MEQ/L (98-107); CREATININE FOR GFR 0.78 MG/DL (0.55-1.30); GLOMERULAR FILTRATION RATE > 60.0 (>45); GLUCOSE, FASTING 99 MG/DL (70-100); POTASSIUM SERUM 4.3 MEQ/L (3.5-5.1); SODIUM LEVEL 140 MEQ/L (136-145)
[2018-08-13 21:46] LABS: INFLUENZA A AMPLIFICATION NEGATIVE (NEGATIVE); INFLUENZA B AMPLIFICATION NEGATIVE (NEGATIVE)
[2018-08-13 22:41] LABS: CPK CREATINE PHOSPHOKINASE 54 U/L (26-192); MB/CK RELATIVE INDEX 2.96 (< OR =4); TROPONIN I < 0.02 NG/ML (< 0.10)
[2018-08-13] MEDS ORDERED: DALI1TAB2 PO (23:07)
[2018-08-14] MEDS ORDERED: IPRATROPIUM 0.5MG/ALBUTEROL 2.5MG INH SOL UD 3ML (DUONEB)(J7620) NEB ONE (02:00)
[2018-08-14] MEDS ORDERED: PERCOCET 5MG/325MG TAB PO ONE (02:15)
[2018-08-14] MEDS ORDERED: ONDANSETRON 4 MG TAB (S0181) PO PRN (02:45)
[2018-08-14] MEDS: traZODone 50 MG TAB PO SCH ×2 (03:40→19:59)
[2018-08-14] MEDS: SIMVASTATIN 20 MG TAB PO SCH ×2 (03:40→19:59)
[2018-08-14 04:30] VITALS: BP 129/82
[2018-08-14 06:23] LABS: BASO % 0.2 % (0.0-1.0); HEMATOCRIT 37.9 % (36.0-47.0); HEMOGLOBIN 11.5 g/dl (12.0-15.5); LYMPH % 5.6 % (24.0-44.0); MEAN CORPUSCULAR HEMOGLOBIN 26.7 pg (27.0-33.0); MEAN CORPUSCULAR HGB CONC 30.3 g/dl (32.0-36.5); MEAN CORPUSCULAR VOLUME 88.1 fl (80.0-96.0); MONO % 0.5 % (0.0-5.0); NEUTROPHILS % 93.5 % (36.0-66.0); PLATELET COUNT, AUTOMATED 195 10^3/uL (150-450); WHITE BLOOD COUNT 4.3 10^3/uL (4.0-10.0)
[2018-08-14 06:49] LABS: LYMPH # 0.2 10^3/uL (1.5-4.5)
--- NOTE | 2018-08-14 06:52 | REP ---
Clinical: Shortness of breath . Comparison: 08/06/2018 . Findings: The mediastinum and cardiac silhouette are stable and within normal limits for portable technique. The lung white are clear without acute consolidation, effusion, or pneumothorax. Skeletal structures are intact. Impression: No acute cardiopulmonary process appreciated. Electronically Signed by Lee Wolf MD 08/14/2018 06:43 A
[2018-08-14 06:53] LABS: BLOOD UREA NITROGEN 14 MG/DL (7-18); CALCIUM LEVEL 9.5 MG/DL (8.8-10.2); CARBON DIOXIDE LEVEL 32 MEQ/L (21-32); CHLORIDE LEVEL 100 MEQ/L (98-107); CREATININE FOR GFR 0.84 MG/DL (0.55-1.30); GLOMERULAR FILTRATION RATE > 60.0 (>45); GLUCOSE, FASTING 153 MG/DL (70-100); POTASSIUM SERUM 4.1 MEQ/L (3.5-5.1); SODIUM LEVEL 137 MEQ/L (136-145)
[2018-08-14] MEDS: PERCOCET 5MG/325MG TAB PO PRN ×4 (07:09→19:59)
[2018-08-14] MEDS: IPRATROPIUM 0.5MG/ALBUTEROL 2.5MG INH SOL UD 3ML (DUONEB)(J7620) NEB SCH ×4 (07:38→20:54)
[2018-08-14] MEDS: OMEPRAZOLE 20 MG CAP PO SCH ×2 (08:00→19:59)
[2018-08-14] MEDS: ASPIRIN 81 MG ENTERIC TAB PO SCH (08:00)
[2018-08-14] MEDS: MIDODRINE 5 MG TAB PO SCH ×2 (08:00→15:01)
[2018-08-14] MEDS: ESCITALOPRAM OXALATE 10 MG TAB (LEXAPRO) PO SCH (08:00)
[2018-08-14] MEDS: FOLIC ACID 1 MG TAB PO SCH (08:01)
[2018-08-14] MEDS: RIVAROXABAN 10 MG TAB (XARELTO) PO SCH (08:01)
[2018-08-14] MEDS: VITAMIN D 1,000 INTERNATIONAL UNITS TABLET PO SCH (08:01)
[2018-08-14] MEDS: predniSONE 20 MG TAB PO SCH (08:01)
[2018-08-14] MEDS: FERROUS SULFATE 325MG TAB PO SCH (08:01)
[2018-08-14 10:00] VITALS: BP 132/66
[2018-08-14 14:00] VITALS: BP 143/64
[2018-08-14] MEDS: ALPRAZolam 0.5 MG TAB PO PRN (14:07)
[2018-08-14] MEDS: PINK BISMUTH SUSP 524MG/30ML ORAL SYRINGE PO PRN (15:01)
--- NOTE | 2018-08-14 15:56 | HPE ---
DATE OF ADMISSION: 08/14/2018 CHIEF COMPLAINT: Shortness of breath. ALLERGIES: CEPHALEXIN, CLAVULANIC ACID, ERYTHROMYCIN, GABAPENTIN, IODINE, IOPAMIDOL, METHYLPREDNISOLONE, MORPHINE, MOXIFLOXACIN, PENICILLIN, QUINOLONES, SULFA DRUGS. PRIMARY CARE PROVIDER: Dr. Conde. This is a 58-year-old female with a long history of chronic obstructive pulmonary disease (COPD), that she has been having increasing cough. It hurts when she coughs in her chest she has coughed so much. Increasing shortness of breath that has been going on for 3 days. She called the ambulance and came to the emergency room. Upon arrival, blood pressure was 111/64, pulse was 104, pulse oximetry was 99% on 2 liters nasal cannula. Laboratory studies were drawn. White count was 6.9, hemoglobin 11.4, hematocrit 38.1, platelets were 145. Sodium was 140, potassium 4.3, chloride 101, CO2 was elevated at 35, BUN was 13, creatinine 0.78. Troponin was less than 0.02. CPK was 54. CK-MB was 2.0. Glucose was 99. Influenza A and B nasal swabs were negative. Chest x-ray was done. No acute cardiopulmonary process was appreciated. Patient had expiratory wheezing throughout. She was given DuoNeb and albuterol treatment in the emergency room. She was given Decadron intravenous (IV) with improvement. She was medicated with oxycodone for pain. Assessment was done. Patient will be admitted to the medical floor for acute exacerbation of COPD. Will give oral steroids, nebulizer treatments. Patient states still has not had any sleep apnea study this evening, which will be rescheduled. PAST MEDICAL HISTORY: 1. Deep vein thrombosis (DVT). 2. History of COPD with numerous exacerbation. 3. History of anemia. 4. Coronary artery disease. 5. Hypertension. 6. Gastroesophageal reflux disease (GERD). 7. Nicotine abuse. 8. She has chronic pain. 9. She has history of anemia, iron deficient. 10. She has history of congestive heart failure (CHF). PAST SURGICAL HISTORY: 1. Partial hysterectomy. 2. Bladder suspension secondary to urinary incontinence. 3. Tonsillectomy and adenoidectomy. 4. Right hip replacement. 5. Cardiac catheterization without any stent placement. 6. Right foot debridement secondary to hematoma. 7. Left lower extremity incision and drainage with wound vacuum-assisted closure (VAC) placement in the past. 8. History of methicillin-resistant Staphylococcus aureus (MRSA). FAMILY HISTORY: Noncontributory. HOME MEDICATIONS: - Ventolin two puffs every 4 hours as needed for shortness of breath - alprazolam 1 mg by mouth daily as needed for anxiety - midodrine 5 mg by mouth twice a day - nitroglycerine 0.4 mg sublingual every 5 minutes times three as needed for chest pain - senna 8.6 mg two by mouth at bedtime - spironolactone 25 mg by mouth twice a day - Breo Ellipta 20/25 one inhalation daily - lamotrigine 150 mg by mouth daily - Daliresp 250 mcg by mouth daily - DuoNeb every 4 hours as needed for shortness of breath or wheeze - aspirin 81 mg by mouth daily - vitamin D 2000 units by mouth daily - Lexapro 20 mg by mouth daily - ferrous sulfate 325 by mouth daily - folic acid 1 mg by mouth daily - omeprazole 40 mg by mouth twice a day - Zofran 4 mg every 6 hours as needed for nausea - oxycodone/acetaminophen 5/325 one by mouth every 4 hours as needed for pain - Xarelto 10 mg by mouth daily - simvastatin 20 mg by mouth at bedtime - trazodone 150 mg by mouth at bedtime REVIEW OF SYSTEMS: A 10-systems review was done. Other than the chronic pain, cough, wheezing, no hemoptysis, it was unremarkable. PHYSICAL EXAMINATION: A 58-year-old cooperative female. Blood pressure 129/56, pulse 112, oxygen saturation 93% on 2 liters. Patient is alert and oriented times three. Pupils equal and reactive to light. Pharynx, tongue, gums pink and moist. Tongue is midline. Neck is supple without lymphadenopathy. No thyromegaly. No goiter. Chest has expiratory wheeze throughout. No retraction. Heart is regular. Abdomen benign. Bowel sounds positive. Genitourinary/rectal not done. Extremities show equal strength, full range of motion. No cyanosis, clubbing, or edema. IMPRESSION AND PLAN: 1. Acute exacerbation of chronic obstructive pulmonary disease (COPD). Patient will be admitted to the hospitalist service. DuoNeb treatments, prednisone by mouth, as patient is allergic to methylprednisolone. Followup on blood cultures. 2. Chronic diastolic congestive heart failure. No sign of fluid overload. 3. History of deep vein thrombosis (DVT). 4. History of pulmonary embolism (PE). Continue on Xarelto. 5. History of anxiety. Continues on patient's home medication, Xanax. Patient will be admitted to hospitalist service. Attending will be Dr. Evans.
[2018-08-14 18:00] VITALS: BP 134/80
--- NOTE | 2018-08-14 20:52 | ECGEPIP ---
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
[2018-08-14 22:00] VITALS: BP 136/73
[2018-08-15 02:00] VITALS: BP 129/70
[2018-08-15] MEDS: PERCOCET 5MG/325MG TAB PO PRN ×6 (02:28→23:22)
[2018-08-15 06:00] VITALS: BP 123/68
[2018-08-15 06:12] LABS: BASO % 0.1 % (0.0-1.0); HEMATOCRIT 35.3 % (36.0-47.0); HEMOGLOBIN 10.9 g/dl (12.0-15.5); LYMPH # 1.1 10^3/uL (1.5-4.5); LYMPH % 11.1 % (24.0-44.0); MEAN CORPUSCULAR HEMOGLOBIN 26.5 pg (27.0-33.0); MEAN CORPUSCULAR HGB CONC 30.9 g/dl (32.0-36.5); MEAN CORPUSCULAR VOLUME 85.9 fl (80.0-96.0); MONO # 0.8 10^3/uL (0.0-0.8); MONO % 7.6 % (0.0-5.0); NEUTROPHILS % 80.9 % (36.0-66.0); PLATELET COUNT, AUTOMATED 212 10^3/uL (150-450); RED BLOOD COUNT 4.11 10^6/uL (4.00-5.40); WHITE BLOOD COUNT 9.8 10^3/uL (4.0-10.0)
[2018-08-15 06:23] LABS: BLOOD UREA NITROGEN 19 MG/DL (7-18); CALCIUM LEVEL 9.2 MG/DL (8.8-10.2); CARBON DIOXIDE LEVEL 32 MEQ/L (21-32); CHLORIDE LEVEL 102 MEQ/L (98-107); CREATININE FOR GFR 0.81 MG/DL (0.55-1.30); GLOMERULAR FILTRATION RATE > 60.0 (>45); GLUCOSE, FASTING 109 MG/DL (70-100); POTASSIUM SERUM 4.1 MEQ/L (3.5-5.1); SODIUM LEVEL 139 MEQ/L (136-145)
[2018-08-15] MEDS: IPRATROPIUM 0.5MG/ALBUTEROL 2.5MG INH SOL UD 3ML (DUONEB)(J7620) INH PRN (06:46)
[2018-08-15] MEDS: IPRATROPIUM 0.5MG/ALBUTEROL 2.5MG INH SOL UD 3ML (DUONEB)(J7620) NEB SCH ×4 (07:15→20:44)
[2018-08-15] MEDS: predniSONE 20 MG TAB PO SCH ×2 (08:08→20:05)
[2018-08-15] MEDS: OMEPRAZOLE 20 MG CAP PO SCH ×2 (08:08→20:05)
[2018-08-15] MEDS: ASPIRIN 81 MG ENTERIC TAB PO SCH (08:08)
[2018-08-15] MEDS: ESCITALOPRAM OXALATE 10 MG TAB (LEXAPRO) PO SCH (08:08)
[2018-08-15] MEDS: VITAMIN D 1,000 INTERNATIONAL UNITS TABLET PO SCH (08:08)
[2018-08-15] MEDS: FOLIC ACID 1 MG TAB PO SCH (08:08)
[2018-08-15] MEDS: MIDODRINE 5 MG TAB PO SCH ×2 (08:08→15:11)
[2018-08-15] MEDS: FERROUS SULFATE 325MG TAB PO SCH (08:08)
[2018-08-15] MEDS: PINK BISMUTH SUSP 524MG/30ML ORAL SYRINGE PO PRN (09:51)
[2018-08-15 10:00] VITALS: BP 136/71
[2018-08-15] MEDS: RIVAROXABAN 10 MG TAB (XARELTO) PO SCH (12:50)
[2018-08-15] MEDS: ALPRAZolam 0.5 MG TAB PO PRN (12:50)
[2018-08-15 14:00] VITALS: BP 119/60
--- NOTE | 2018-08-15 15:17 | IPN ---
DATE: 08/15/2018 SUBJECTIVE: The patient is seen and examined in the room today. The patient continues to complain about persistent shortness of breath. The patient continues having a severe cough. Denies any fevers or chills. OBJECTIVE: VITAL SIGNS: Temperature is 97.9, pulse is 69, respirations 20, blood pressure is 123/68, pulse oximetry is 94% with two liters nasal cannula. GENERAL: The patient is alert, awake and oriented. HEENT: Normocephalic, atraumatic. Extraocular motor grossly intact. CARDIOVASCULAR: Positive S1, S2, regular rate. LUNGS: Very diminished breath sounds. Expiratory wheezes improving. No crackles appreciated. ABDOMEN: Soft, nontender. Bowel sounds present. EXTREMITIES: No edema appreciated. LABORATORY DATA: WBC is 9.8, hemoglobin 10.9, hematocrit 35.3, platelet count is 212. Sodium is 139, potassium 4.1, chloride 101, carbon dioxide 32, BUN 19, creatinine is 0.81, GFR greater than 60, fasting glucose 109, calcium is 9.2. ASSESSMENT AND PLAN: 1. Chronic obstructive pulmonary disease (COPD) exacerbation. Continue on nebulizer treatments. The patient is on steroids. 2. History of pulmonary embolism (PE)/deep vein thrombosis (DVT), on Xarelto. 3. Grade 1 diastolic heart failure. No sign of exacerbation at this moment. Continue to monitor. 4. Anxiety/depression, on Xanax and Lexapro. 5. Gastroesophageal reflux disease, on omeprazole. 6. History of cervical degenerative disc disease. 7. Gastrointestinal (GI) upset, on trial of Pepto-Bismol, improving. The patient has been using that agent. At baseline, the patient stated it has been helping to control his symptoms. 8. Dyslipidemia, on statin. 9. Deep vein thrombosis (DVT) prophylaxis, on Xarelto.
[2018-08-15 18:00] VITALS: BP 136/74
[2018-08-15] MEDS: SIMVASTATIN 20 MG TAB PO SCH (20:05)
[2018-08-15] MEDS: traZODone 50 MG TAB PO SCH (21:41)
[2018-08-15 22:00] VITALS: BP 133/72
[2018-08-16] MEDS: IPRATROPIUM 0.5MG/ALBUTEROL 2.5MG INH SOL UD 3ML (DUONEB)(J7620) INH PRN (00:02)
[2018-08-16 02:00] VITALS: BP 137/81
[2018-08-16] MEDS: PERCOCET 5MG/325MG TAB PO PRN ×3 (03:38→13:03)
[2018-08-16 06:00] VITALS: BP 136/88
[2018-08-16 06:48] LABS: HEMOGLOBIN 11.1 g/dl (12.0-15.5); LYMPH # 0.5 10^3/uL (1.5-4.5); LYMPH % 9.5 % (24.0-44.0); MEAN CORPUSCULAR HEMOGLOBIN 26.7 pg (27.0-33.0); MEAN CORPUSCULAR VOLUME 89.2 fl (80.0-96.0); MONO # 0.2 10^3/uL (0.0-0.8); MONO % 2.8 % (0.0-5.0); NEUTROPHILS # 4.6 10^3/uL (1.8-7.7); NEUTROPHILS % 86.9 % (36.0-66.0); PLATELET COUNT, AUTOMATED 194 10^3/uL (150-450); RED BLOOD COUNT 4.15 10^6/uL (4.00-5.40); WHITE BLOOD COUNT 5.3 10^3/uL (4.0-10.0)
[2018-08-16 07:12] LABS: BLOOD UREA NITROGEN 20 MG/DL (7-18); CALCIUM LEVEL 9.1 MG/DL (8.8-10.2); CARBON DIOXIDE LEVEL 28 MEQ/L (21-32); CHLORIDE LEVEL 106 MEQ/L (98-107); CREATININE FOR GFR 0.78 MG/DL (0.55-1.30); GLOMERULAR FILTRATION RATE > 60.0 (>45); GLUCOSE, FASTING 128 MG/DL (70-100); POTASSIUM SERUM 4.3 MEQ/L (3.5-5.1); SODIUM LEVEL 142 MEQ/L (136-145)
[2018-08-16] MEDS: IPRATROPIUM 0.5MG/ALBUTEROL 2.5MG INH SOL UD 3ML (DUONEB)(J7620) NEB SCH ×2 (07:18→11:07)
[2018-08-16] MEDS: OMEPRAZOLE 20 MG CAP PO SCH (08:44)
[2018-08-16] MEDS: FERROUS SULFATE 325MG TAB PO SCH (08:44)
[2018-08-16] MEDS: RIVAROXABAN 10 MG TAB (XARELTO) PO SCH (08:44)
[2018-08-16] MEDS: predniSONE 20 MG TAB PO SCH (08:44)
[2018-08-16] MEDS: ASPIRIN 81 MG ENTERIC TAB PO SCH (08:44)
[2018-08-16] MEDS: MIDODRINE 5 MG TAB PO SCH (08:45)
[2018-08-16] MEDS: ESCITALOPRAM OXALATE 10 MG TAB (LEXAPRO) PO SCH (08:45)
[2018-08-16] MEDS: FOLIC ACID 1 MG TAB PO SCH (08:45)
[2018-08-16] MEDS: VITAMIN D 1,000 INTERNATIONAL UNITS TABLET PO SCH (08:45)
[2018-08-16] MEDS ORDERED: PRED10TA2 PO (11:02)
[2018-08-16] MEDS ORDERED: OXYC1TAB23 PO (11:58)
[2018-08-16] MEDS ORDERED: XANA1TAB2 PO (11:58)
--- NOTE | 2018-08-20 16:09 | DSES ---
DATE OF ADMISSION: 08/14/2018 DATE OF DISCHARGE: 08/16/2018 CONSULTANTS: None. PRIMARY CARE PROVIDER: Sukhdev Conde MD DISCHARGE DIAGNOSES: 1. Chronic obstructive pulmonary disease (COPD) exacerbation. 2. History of pulmonary embolism (PE) and deep vein thrombosis (DVT) on Xarelto. 3. Grade 1 diastolic heart failure. 4. Anxiety/depression. 5. Gastroesophageal reflux disease. 6. History of cervical degenerative disc disease. 7. Gastrointestinal (GI) upset. 8. Dyslipidemia. HOSPITALIZATION COURSE: The patient is a 58-year-old female who presented to [facility] on 08/14/2018 with complaint of shortness of breath. The patient is admitted under the hospitalist service for COPD exacerbation. The patient is started on steroids and the patient is on nebulizer treatments. The patient's steroids have been titrated based on the patient's clinical symptoms. Continue nebulizer treatments as needed. On August 16, 2018, the patient's respiratory status has returned to her baseline. The patient was determined stable for discharge with recommendations to finish her course of steroid taper for her COPD. OBJECTIVE: VITAL SIGNS ON DAY OF DISCHARGE: Temperature is 97.6, pulse is 89, respirations 21, blood pressure is 136/88, pulse oximetry is 92% with 2 liters nasal cannula. LABORATORY DATA ON THE DAY OF DISCHARGE: White blood cell (WBC) 5.3, hemoglobin 11.1, hematocrit 37, platelet count is 194. Sodium is 142, potassium 4.3, chloride 106, carbon dioxide 28, BUN 20, creatinine 0.78. Glomerular filtration rate (GFR) 60, fasting glucose 128. Calcium is 9.1. Influenza negative. Microbiology: Blood culture from August 13 and August 14 showed no growth after five days. IMAGING STUDIES: Chest x-ray on August 14, 2018 demonstrated no acute cardiopulmonary process appreciated. DISCHARGE MEDICATIONS: - Xanax 1 mg by mouth daily as needed for 3 days - Percocet 1 tablet by mouth every 4 hours as needed for 5 days - prednisone slow taper - albuterol 2 puff inhalation every 4 hours as needed for shortness of breath - DuoNeb inhalation every 4 hours as needed - aspirin 81 mg by mouth daily - vitamin D 2000 units by mouth daily - escitalopram 20 mg by mouth daily - ferrous sulfate 325 mg by mouth daily - Breo 1 puff inhalation daily - folic acid 1 mg by mouth daily - lamotrigine 150 mg by mouth daily - midodrine 5 mg by mouth twice a day - nitroglycerin 0.4 mg sublingual as needed for chest pain - omeprazole 40 mg by mouth twice a day - Xarelto 10 mg by mouth daily - Daliresp 250 mcg by mouth daily - Senna 2 tablets by mouth at bedtime - Zocor 20 mg by mouth at bedtime - spironolactone 25 mg by mouth four times a day - trazodone 150 mg by mouth at bedtime DISCHARGE INSTRUCTIONS: Discontinue lines. Discharge home. Activity as tolerated. Diet as tolerated. The patient should finish the course of a very slow steroid taper. The patient should follow with her primary care provider in one to two weeks. DISCHARGE TIME: Greater than 30 minutes.
== END 2018-08-16 14:08 | disposition home health service (06) | DRG 140 ==
LOC: EDBD 20:41 → M ED 20:41 → M ED INP 08-14 03:20 → EEVIPCON 08-14 03:20 → M MSPAV 08-14 04:25
PROVIDERS: ADMIT Internal Medicine; ATTEND Internal Medicine
DX: J44.1 Chronic obstructive pulmonary disease with (acute) exacerbation (principal); I11.0 Hypertensive heart disease with heart failure; D50.9 Iron deficiency anemia, unspecified; F17.200 Nicotine dependence, unspecified, uncomplicated; F32.9 Major depressive disorder, single episode, unspecified; E78.5 Hyperlipidemia, unspecified; I50.32 Chronic diastolic (congestive) heart failure; I25.10 Atherosclerotic heart disease of native coronary artery without angina pectoris; K21.9 Gastro-esophageal reflux disease without esophagitis; G89.29 Other chronic pain; F41.9 Anxiety disorder, unspecified; Z96.641 Presence of right artificial hip joint; Z79.82 Long term (current) use of aspirin; Z79.899 Other long term (current) drug therapy; Z79.01 Long term (current) use of anticoagulants; Z86.718 Personal history of other venous thrombosis and embolism; Z88.1 Allergy status to other antibiotic agents; Z88.0 Allergy status to penicillin; Z88.2 Allergy status to sulfonamides; Z88.5 Allergy status to narcotic agent; Z88.8 Allergy status to other drugs, medicaments and biological substances

== ENCOUNTER → 2018-08-21 | Outpatient (CLI) | payer OTHER ==
[~2018-08-21] MED LIST changes: +DALI1TAB2 PO; +OXYC1TAB23 PO; +XANA1TAB2 PO
--- NOTE | 2018-08-28 08:44 | SLEEPHOME ---
DATE OF STUDY: 08/21/2018 ORDERED BY: Dr. Maloney Diagnostic home sleep testing was performed due to concern for the obstructive sleep apnea syndrome in this patient with a history of excessive somnolence and nonrestorative sleep. 9 hours and 59 minutes of data were reviewed. There were 8 hours and 11 minutes marked as time in bed. During the interval marked time in bed, there were no significant obstructive respiratory events identified. The patient's baseline pulse rate was 94, and pulse rates ranged from 86 to 105. Baseline saturation was 96%; saturations fell only to 95%. There was snoring noted. Testing was performed in both the supine and nonsupine positions. IMPRESSION: Normal diagnostic home sleep testing with snoring. RECOMMENDATIONS: If the patient's sleep symptoms persist, formal in-laboratory nocturnal polysomnography is a more sensitive means of identifying sleep pathology.
== END ==
LOC: M SLEEP HO 08-13 10:18
PROVIDERS: ATTEND Internal Medicine Pulmonary Disease
DX: R06.83 Snoring (principal)

== ENCOUNTER → 2018-08-23 | Outpatient (REF) | payer OTHER ==
[2018-08-23 19:02] LABS: BLOOD UREA NITROGEN 23 MG/DL (7-18); CALCIUM LEVEL 8.3 MG/DL (8.8-10.2); CARBON DIOXIDE LEVEL 32 MEQ/L (21-32); CHLORIDE LEVEL 104 MEQ/L (98-107); CREATININE FOR GFR 0.69 MG/DL (0.55-1.30); GLOMERULAR FILTRATION RATE > 60.0 (>45); GLUCOSE, FASTING 100 MG/DL (70-100); MAGNESIUM LEVEL 2.3 MG/DL (1.8-2.4); NT-PRO BNP 320 PG/ML (<125); POTASSIUM SERUM 3.6 MEQ/L (3.5-5.1); SODIUM LEVEL 142 MEQ/L (136-145)
== END ==
LOC: M LAB REF 16:40
PROVIDERS: ATTEND Family Medicine
DX: M79.89 Other specified soft tissue disorders (principal)

== ENCOUNTER → 2018-09-20 | Outpatient (REF) | payer OTHER ==
[~2018-09-20] MED LIST changes: -/ADVA50050; -/ADVA50050 IN; -/ESOM40CA; -/ESOM40CA OR; -/ESOM40CA PO; -/IPRAINH IN; -/LAMO10TA PO; -/METO25TAB PO; -/MOM400 PO; -/TIOT18INH; -/TIOT18INH INH; -/TRAZ15TA PO; -/WARF2TA PO; -/WARF3TA PO; -/WARF5TA PO; +ADVA1AER2; +ADVA1AER2 IN; -ASPI81CH PO; +ASPI81CH49 PO; +ATRO0.063 IN; -CORTOTSO AS; +COUM1TAB16 PO; +COUM1TAB17 PO; +COUM1TAB19 PO; -DOCU10ELUD PO; +DOCU5LIQ PO; +KONS100P4 PO; +LAMO100T80 PO; -LAMO10TA PO; -METAPKT PO; +METO-1 PO; +METO-346 PO; -METO12TA PO; +METO1TAB87 PO; +MILK10SU PO; +NEOM1SOL19 AS; +NEXI1CAP3; +NEXI1CAP3 OR; +NEXI1CAP3 PO; +PRED-351 PO; -PRED10TA PO; +SB S8.6T PO; +SPIR1CAP; -TOPR25TA PO; +TORS5TAB2 PO; +[UNRECOGNIZED DRUG - CODE] PO
[2018-09-20 13:47] LABS: BLOOD UREA NITROGEN 13 MG/DL (7-18); CALCIUM LEVEL 9.2 MG/DL (8.8-10.2); CARBON DIOXIDE LEVEL 32 MEQ/L (21-32); CHLORIDE LEVEL 99 MEQ/L (98-107); CREATININE FOR GFR 0.96 MG/DL (0.55-1.30); GLOMERULAR FILTRATION RATE > 60.0 (>45); GLUCOSE, FASTING 134 MG/DL (70-100); POTASSIUM SERUM 4.2 MEQ/L (3.5-5.1); SODIUM LEVEL 138 MEQ/L (136-145)
== END ==
LOC: M LAB REF 12:35
PROVIDERS: ATTEND Student in an Organized Health Care Education/Training Program
DX: I50.32 Chronic diastolic (congestive) heart failure (principal); M79.89 Other specified soft tissue disorders

== ENCOUNTER 2018-09-23 10:57 | Inpatient (IN) | payer OTHER ==
[~2018-09-23] VITALS: Ht 162.6 cm; Wt 106.6 kg
[2018-09-23] MEDS: MIDODRINE 5 MG TAB PO SCH ×2 (08:00→21:47)
[~2018-09-23 10:57] MED LIST changes: -SB S8.6T PO; -TORS5TAB2 PO
[2018-09-23] MEDS ORDERED: TORS5TAB2 PO (11:55)
[2018-09-23] MEDS ORDERED: TORS20TA2 PO (11:55)
[2018-09-23] MEDS ORDERED: ALBUTEROL SULFATE 2.5 MG/0.5 ML INH NEB SOLN INH ONE (12:15)
[2018-09-23] MEDS ORDERED: dexameTHASONE 20 MG/5 ML VIAL (J1100) IV ONE (12:15)
[2018-09-23] MEDS ORDERED: IPRATROPIUM 0.5MG/ALBUTEROL 2.5MG INH SOL UD 3ML (DUONEB)(J7620) NEB ONE (12:15)
[2018-09-23 12:43] LABS: VENOUS PH 7.412 UNITS (7.330-7.430)
[2018-09-23 12:44] LABS: VENOUS BASE EXCESS 9.9 (-2.0-2.0); VENOUS HCO3 36.9 MEQ/L (23.0-27.0); VENOUS O2 SATURATION 90.7 % (60.0-80.0); VENOUS PARTIAL PRESSURE CO2 59.2 mmHg (38.0-50.0); VENOUS PARTIAL PRESSURE O2 56.3 mmHg (30.0-50.0); VENOUS STANDARD HCO3 33.5 MEQ/L; VENOUS TOTAL CO2 38.7 MEQ/L (24.0-28.0)
[2018-09-23 12:51] LABS: BASO # 0.1 10^3/uL (0.0-0.2); BASO % 0.6 % (0.0-1.0); EOS # 0.5 10^3/uL (0.0-0.50); EOS % 5.6 % (0.0-3.0); HEMATOCRIT 44.4 % (36.0-47.0); HEMOGLOBIN 13.3 g/dl (12.0-15.5); LYMPH # 2.3 10^3/uL (1.5-4.5); MEAN CORPUSCULAR HEMOGLOBIN 27.6 pg (27.0-33.0); MEAN CORPUSCULAR VOLUME 92.1 fl (80.0-96.0); MONO # 0.7 10^3/uL (0.0-0.8); MONO % 8.1 % (0.0-5.0); NEUTROPHILS # 4.6 10^3/uL (1.8-7.7); PLATELET COUNT, AUTOMATED 238 10^3/uL (150-450); RED BLOOD COUNT 4.82 10^6/uL (4.00-5.40); WHITE BLOOD COUNT 8.2 10^3/uL (4.0-10.0)
[2018-09-23 13:01] LABS: INR 1.5; PROTHROMBIN TIME 18.4 SECONDS (12.1-14.4)
[2018-09-23 13:18] LABS: INFLUENZA A AMPLIFICATION NEGATIVE (NEGATIVE); INFLUENZA B AMPLIFICATION NEGATIVE (NEGATIVE)
[2018-09-23 13:22] LABS: ALBUMIN 3.4 GM/DL (3.2-5.2); ALT/SGPT 24 U/L (12-78); BILIRUBIN,DIRECT < 0.1 MG/DL (0.0-0.2); BILIRUBIN,TOTAL 0.3 MG/DL (0.2-1.0); BLOOD UREA NITROGEN 17 MG/DL (7-18); CALCIUM LEVEL 9.3 MG/DL (8.8-10.2); CARBON DIOXIDE LEVEL 35 MEQ/L (21-32); CHLORIDE LEVEL 97 MEQ/L (98-107); CPK CREATINE PHOSPHOKINASE 34 U/L (26-192); CREATININE FOR GFR 0.95 MG/DL (0.55-1.30); GLOMERULAR FILTRATION RATE > 60.0 (>45); GLUCOSE, FASTING 106 MG/DL (70-100); MB/CK RELATIVE INDEX 3.24 (< OR =4); NT-PRO BNP 44 PG/ML (<125); POTASSIUM SERUM 4.4 MEQ/L (3.5-5.1); SODIUM LEVEL 136 MEQ/L (136-145); TOTAL PROTEIN 6.7 GM/DL (6.4-8.2); TROPONIN I < 0.02 NG/ML (< 0.10)
--- NOTE | 2018-09-23 13:57 | REP ---
PA and lateral chest: Comparison is 08/06/2018. The lung white are clear. The cardiac size is normal. The adair, mediastinum, and skeletal structures are unremarkable. Impression: Negative PA and lateral chest. There is no interval change. Electronically Signed by Mikhail Delcid MD 09/23/2018 01:49 P
[2018-09-23] MEDS ORDERED: FUROSEMIDE 100 MG/10 ML VIAL (J1940) IV ONE (14:15)
[2018-09-23] MEDS ORDERED: SB S8.6T PO (15:49)
[2018-09-23] MEDS: methylPREDNISolone INJ 125 MG/2 ML VIAL (J2930) IV SCH ×2 (17:10→17:17)
[2018-09-23 17:45] VITALS: BP 142/71
[2018-09-23] MEDS: IPRATROPIUM 0.5MG/ALBUTEROL 2.5MG INH SOL UD 3ML (DUONEB)(J7620) NEB SCH (19:39)
[2018-09-23] MEDS ORDERED: methylPREDNISolone INJ 125 MG/2 ML VIAL (J2930) IV SCH (20:00)
[2018-09-23] MEDS ORDERED: ONDANSETRON 4 MG TAB (S0181) PO PRN (21:00)
[2018-09-23] MEDS: lamoTRIgine 100MG TAB PO SCH ×2 (21:00→21:45)
--- NOTE | 2018-09-23 21:32 | ECGEPIP ---
Stationary ECG Study [facility] - ED Test Date: 2018-09-23 Pat Name: JULITO PUENTE Department: Room: - Gender: F [employer]: kelly : 1960 Requested By: Diego Marin Order Number: [id number] Reading MD: Diego Ramos Measurements Intervals [place] Rate: 101 P: 11 [place]: 148 QRS: 35 QRSD: 87 T: 44 QT: 339 QTc: 440 Interpretive Statements SINUS TACHYCARDIA NSTTW ABNORMALITIES SIMILAR TO 08/13/18 Electronically Signed On 09-23-2018 21:32:25 EDT by Diego Ramos
[2018-09-23] MEDS: traZODone 50 MG TAB PO SCH (21:44)
[2018-09-23] MEDS: OMEPRAZOLE 20 MG CAP PO SCH (21:45)
[2018-09-23] MEDS: SPIRONOLACTONE 25 MG TAB PO SCH (21:45)
[2018-09-23] MEDS: DOXYCYCLINE HYCLATE 100 MG TAB PO SCH (21:45)
[2018-09-23] MEDS: SENNA 8.6 MG TAB (SENOKOT) PO SCH (21:46)
[2018-09-23] MEDS: SIMVASTATIN 20 MG TAB PO SCH (21:46)
[2018-09-23] MEDS: PERCOCET 5MG/325MG TAB PO PRN (21:46)
--- NOTE | 2018-09-23 21:51 | HPE ---
DATE OF ADMISSION: 09/23/2018 ATTENDING PHYSICIAN: Hospitalist group. PRIMARY CARE PROVIDER: Dr. Sukhdev Conde AUTOMOTIVE EXHAUST EMISSIONS TECHNICIAN: Dr. Chelly Maloney PACKING ROOM WORKER: Dr. Miguel Apple CHIEF COMPLAINT: Shortness of breath. HISTORY: Katrin Alfred is a 58-year-old, well known to the hospitalist service for recurrent hospitalizations for chronic obstructive pulmonary disease (COPD) exacerbation. She was just discharged one month ago on 08/16/2018 for exacerbation of COPD. She has a history of diastolic heart failure, history of pulmonary embolism and deep vein thrombosis (DVT) and on chronic anticoagulant therapy on Xarelto. Anxiety/depression, hyperlipidemia, degenerative disc disease of the cervical spine. She had an echocardiogram done in 12/2017 with a normal ejection fraction of 60 to 65%, some mild diastolic dysfunction, probably physiologic. She has a diagnosis of coronary artery disease, but she had a nuclear stress test in 04/2012 that was normal. Her last appointment at [facility] was in June 2018. I reviewed that note. They note a recent echocardiogram. She also had a cardiac catheterization in 07/2012 that was normal. No coronary artery disease and a normal ejection fraction, so essentially they treat her for some mild diastolic heart failure. She had a 30 day event monitor done for palpitations, this was just completed in June 2018. Two times that she had symptoms of palpitations and a racing fluttering heart, she is in sinus rhythm, rate of 77 to 102. She had no significant arrhythmias noted. She had a sleep test done 08/2018, this was also normal, it was a home sleep test. MEDICATIONS: - Nitrostat as needed - oxygen 2 liters nasal cannula - torsemide 20 mg daily - Senna - spironolactone 50 mg two tablets twice a day (100 mg twice a day) - aspirin 81 mg daily - omeprazole 40 mg twice a day - Lexapro 20 mg daily - trazodone 150 mg at bedtime - vitamin D 2000 units daily - Zofran 4 mg every 6 hours as needed - Breo 200/25 one inhalation daily - simvastatin 20 mg daily - midodrine 5 mg twice a day - albuterol inhaler as needed - DuoNeb every 4 hours - Daliresp 250 mcg two tablets daily - Xarelto 10 mg daily - Lamictal 150 mg daily - Percocet every 4 hours as needed - folic acid 1 mg daily - ferrous sulfate 325 mg daily - alprazolam 1 mg daily - melatonin as needed SURGICAL HISTORY: Hysterectomy, right hip replacement, bladder surgery, tonsillectomy, adenoidectomy, normal cardiac catheterization as summarized above, hematoma 09/2013 of right foot with debridement, left lower extremity wound requiring incision and drainage and wound VAC 10/2013. FAMILY HISTORY: Father of lung cancer and COPD. Mother had heart disease, unspecified cancer. Brother has COPD and coronary artery disease. SOCIAL HISTORY: She is currently a nonsmoker though she smoked in the past. No significant alcohol intake. Supposed to be on a 1500 mL per day fluid restricted diet. ALLERGIES: KEFLEX caused rash, MORPHINE makes her dyspneic, AVELOX caused hives, AUGMENTIN caused hives, ERYTHROMYCIN caused hives, IV DYE causes hives, SULFA causes hives, NEURONTIN caused gastrointestinal upset, CYCLOBENZAPRINE caused dyspnea, AZITHROMYCIN causes abdominal pain. REVIEW OF SYSTEMS: No hemoptysis, rectal bleeding, urinary bleeding. She had some lower extremity edema and her weight increased at home. PHYSICAL EXAMINATION: VITAL SIGNS: Per flow sheet. She is alert, conversant, no distress. Looks mildly anxious. Pupils are equal and reactive to light. Tympanic membranes clear. Pharynx benign. Neck with no masses. LUNGS: Expiratory wheezes in both bases. HEART: Regular rhythm with no murmur. ABDOMEN: Soft, nontender. No masses. EXTREMITIES: 1+ peripheral edema. LABORATORIES: Chest x-ray showed no active disease. White count is 8.2, hemoglobin 13.3, platelets 238. Sodium 136, potassium 4.4, BUN 15, creatinine 0.9, glucose 106. BNP is only 44. Flu screen is negative. IMPRESSION: 1. Exacerbation of chronic obstructive pulmonary disease (COPD), etiology is unknown, possibly viral URI. No infiltrate on the chest x-ray. She will be admitted for nebulized bronchodilator, intravenous steroid and empirical oral antibiotic therapy. She has severe COPD and requires supplemental oxygen so empiric antibiotic is indicated. 2. History of diastolic heart failure. I do not think that she is in congestive heart failure (CHF). She has a normal BNP, which should essentially rule that out. Most of her dyspnea is from COPD and she agrees. 3. History of anxiety and depression. Continue on home medications for this. 4. History of presumed orthostatic hypotension. She is on midodrine, which we will continue. 5. History of pulmonary embolism/deep vein thrombosis (DVT). Continue Xarelto. 6. Hyperlipidemia. Continue simvastatin 20 mg daily. Hospitalist will assume her care in the morning.
[2018-09-23] MEDS: IPRATROPIUM 0.5MG/ALBUTEROL 2.5MG INH SOL UD 3ML (DUONEB)(J7620) NEB PRN (23:32)
[2018-09-24] MEDS: dexameTHASONE 4 MG/ML 1ML VIAL (J1100) IV SCH ×2 (00:59→12:41)
[2018-09-24] MEDS: IPRATROPIUM 0.5MG/ALBUTEROL 2.5MG INH SOL UD 3ML (DUONEB)(J7620) NEB SCH ×4 (01:27→19:59)
[2018-09-24 02:00] VITALS: BP 137/88
[2018-09-24] MEDS: IPRATROPIUM 0.5MG/ALBUTEROL 2.5MG INH SOL UD 3ML (DUONEB)(J7620) NEB PRN ×3 (03:36→23:35)
[2018-09-24] MEDS: PERCOCET 5MG/325MG TAB PO PRN ×4 (05:42→20:16)
[2018-09-24 05:54] LABS: HEMATOCRIT 43.4 % (36.0-47.0); HEMOGLOBIN 13.6 g/dl (12.0-15.5); MEAN CORPUSCULAR HEMOGLOBIN 27.7 pg (27.0-33.0); MEAN CORPUSCULAR HGB CONC 31.3 g/dl (32.0-36.5); MEAN CORPUSCULAR VOLUME 88.4 fl (80.0-96.0); PLATELET COUNT, AUTOMATED 265 10^3/uL (150-450); RED BLOOD COUNT 4.91 10^6/uL (4.00-5.40); WHITE BLOOD COUNT 4.9 10^3/uL (4.0-10.0)
[2018-09-24 06:00] VITALS: BP 127/80
[2018-09-24 06:17] LABS: CALCIUM LEVEL 10.1 MG/DL (8.8-10.2); CREATININE FOR GFR 1.04 MG/DL (0.55-1.30); GLOMERULAR FILTRATION RATE 57.5 (>45)
[2018-09-24] MEDS: MIDODRINE 5 MG TAB PO SCH ×2 (08:21→15:47)
[2018-09-24] MEDS: RIVAROXABAN 10 MG TAB (XARELTO) PO SCH (08:21)
[2018-09-24] MEDS: ALPRAZolam 0.5 MG TAB PO SCH (08:22)
[2018-09-24] MEDS: ESCITALOPRAM OXALATE 10 MG TAB (LEXAPRO) PO SCH (08:22)
[2018-09-24] MEDS: OMEPRAZOLE 20 MG CAP PO SCH ×2 (08:22→20:17)
[2018-09-24] MEDS: DOXYCYCLINE HYCLATE 100 MG TAB PO SCH ×2 (08:22→20:16)
[2018-09-24] MEDS: SPIRONOLACTONE 25 MG TAB PO SCH ×2 (08:22→15:47)
[2018-09-24] MEDS: TORSEMIDE 20 MG TAB PO SCH (08:23)
[2018-09-24] MEDS ORDERED: PILL CRUSHER/CUTTER 1 EACH XX PRN (08:30)
[2018-09-24] MEDS: lamoTRIgine 100MG TAB PO SCH (10:09)
[2018-09-24 14:00] VITALS: BP 126/81
--- NOTE | 2018-09-24 17:45 | IPNPDOC ---
Date Seen The patient was seen on 09/24/18. Progress Note SUBJECTIVE: Patient is a 58 yo female with multiple comorbidities and recurrent hospitalization for copd exacerbations who was admitted for copd exacerbation again. OBJECTIVE PHYSICAL EXAMINATION: VITAL SIGNS: Please see below. Gen: NAD, healthy appearing , obese , very anxious even after xanax HEENT: normocephalic, atraumatic, no discharge from ears or nose, no oropharyngeal erythema or exudate, neck is supple, no lymphadenopathy, trachea midline CVS: RRR, normal S1n S2, no murmur, rubs, or gallops, no edema, no jvd Resp: very poor air movement, no rhonchi, wheezes or crackles Abd : soft nontender, normal bowel sounds, no rebound tenderness or guarding MSK: no swelling, full range of motion, strength 5/5 Neuro: AOAx3, no confusion, no focal deficit Psych: normal mood and affect, good judgment LABORATORY DATA, IMAGING STUDIES, MICROBIOLOGY: Please see below - reviewed DVT prophylaxis ordered?: [y] ASSESSMENT AND PLAN: Exacerbation of chronic obstructive pulmonary disease (COPD), etiology is unknown, possibly viral URI. No infiltrate on the chest x-ray. c/w nebulized bronchodilator, duoneb q6h standing and albuterol q2hb prn c/w intravenous steroid - 4mg decadron q12h (allergic to methylprednisolone c/w empirical oral antibiotic therapy.- on doxycycline po c/w supplemental oxygen f/u resp panel and sputum gs and cx Patient said Dr. Maloney is her process lead- I contacted/consulted her to see patient , said she will see her 2. History of diastolic heart failure. not in acute exacerbation on torsemide and spironolactone (home med)- continue for now 3. History of anxiety and depression. Continue on home medications for this- very anxious improved with me talking to her. 4. History of presumed orthostatic hypotension. c/w midodrine, 5. History of pulmonary embolism/deep vein thrombosis (DVT). Continue Xarelto. 6. Hyperlipidemia. Continue simvastatin 20 mg daily. DISPOSITION: [pending clincal improvement ]. DVT PPXM- XARELTO GI PPX - PRILOSEC (home med too) VS, I&O, 24H, Fishbone Vital Signs/I&O Vital Signs Date Time Temp Pulse Resp B/P (MAP) Pulse Ox O2 Delivery O2 Flow Rate FiO2 09/24/18 15:47 16 09/24/18 14:00 98.3 111 126/81 (96) 94 2.0 09/23/18 17:10 Nasal Cannula I&O- Last 24 Hours up to 6 AM 09/24/18 06:00 Intake Total 600 ml Output Total 750 ml Balance -150 ml Laboratory Data 24H LABS Laboratory Tests 2 09/24/18 05:39: Nucleated Red Blood Cells % (auto) 0.0, Anion Gap 6L, Glomerular Filtration Rate 57.5, Blood Urea Nitrogen 24H, Creatinine 1.04, Sodium Level 137, Potassium Level 4.0, Chloride Level 96L, Carbon Dioxide Level 35H, Calcium Level 10.1 CBC/BMP Laboratory Tests 09/24/18 05:39 Red Blood Count 4.91, Mean Corpuscular Volume 88.4, Mean Corpuscular Hemoglobin 27.7, Mean Corpuscular Hemoglobin Concent 31.3 L, Red Cell Distribution Width 14.5, Calcium Level 10.1 Microbiology Microbiology 09/23/18 Blood Culture - Preliminary, Resulted No growth after 24 hours . All specim... 09/23/18 Blood Culture - Preliminary, Resulted No growth after 24 hours . All specim... MEHRDAD SPENCE MD Sep 24, 2018 17:45
[2018-09-24] MEDS: traZODone 50 MG TAB PO SCH (20:16)
[2018-09-24] MEDS: SENNA 8.6 MG TAB (SENOKOT) PO SCH (20:17)
[2018-09-24] MEDS: SIMVASTATIN 20 MG TAB PO SCH (20:17)
[2018-09-24 22:00] VITALS: BP 113/68
[2018-09-25] MEDS: dexameTHASONE 4 MG/ML 1ML VIAL (J1100) IV SCH ×2 (01:36→12:18)
[2018-09-25] MEDS: PERCOCET 5MG/325MG TAB PO PRN ×5 (01:37→22:17)
[2018-09-25] MEDS: IPRATROPIUM 0.5MG/ALBUTEROL 2.5MG INH SOL UD 3ML (DUONEB)(J7620) NEB SCH ×5 (03:38→23:59)
[2018-09-25 06:00] VITALS: BP 128/74
[2018-09-25 06:34] LABS: HEMATOCRIT 39.1 % (36.0-47.0); HEMOGLOBIN 12.2 g/dl (12.0-15.5); MEAN CORPUSCULAR HEMOGLOBIN 27.7 pg (27.0-33.0); MEAN CORPUSCULAR HGB CONC 31.2 g/dl (32.0-36.5); MEAN CORPUSCULAR VOLUME 88.9 fl (80.0-96.0); PLATELET COUNT, AUTOMATED 236 10^3/uL (150-450); WHITE BLOOD COUNT 9.5 10^3/uL (4.0-10.0)
[2018-09-25 06:58] LABS: CALCIUM LEVEL 9.6 MG/DL (8.8-10.2); CREATININE FOR GFR 1.04 MG/DL (0.55-1.30); GLOMERULAR FILTRATION RATE 57.5 (>45); MAGNESIUM LEVEL 2.3 MG/DL (1.8-2.4); PHOSPHORUS LEVEL 3.7 MG/DL (2.5-4.9); POTASSIUM SERUM 4.1 MEQ/L (3.5-5.1)
[2018-09-25] MEDS: TORSEMIDE 20 MG TAB PO SCH (09:13)
[2018-09-25] MEDS: MIDODRINE 5 MG TAB PO SCH ×2 (09:13→16:23)
[2018-09-25] MEDS: lamoTRIgine 100MG TAB PO SCH (09:13)
[2018-09-25] MEDS: ESCITALOPRAM OXALATE 10 MG TAB (LEXAPRO) PO SCH (09:13)
[2018-09-25] MEDS: DOXYCYCLINE HYCLATE 100 MG TAB PO SCH ×2 (09:14→20:14)
[2018-09-25] MEDS: ALPRAZolam 0.5 MG TAB PO SCH (09:14)
[2018-09-25] MEDS: SPIRONOLACTONE 25 MG TAB PO SCH ×2 (09:14→16:23)
[2018-09-25] MEDS: OMEPRAZOLE 20 MG CAP PO SCH ×2 (09:14→20:14)
[2018-09-25] MEDS: RIVAROXABAN 10 MG TAB (XARELTO) PO SCH (09:14)
[2018-09-25] MEDS ORDERED: guaiFENesin ER 600 MG TAB PO SCH (11:00)
[2018-09-25] MEDS ORDERED: guaiFENesin 200 MG TAB PO PRN (11:15)
[2018-09-25 14:00] VITALS: BP 125/83
[2018-09-25] MEDS: IPRATROPIUM 0.5MG/ALBUTEROL 2.5MG INH SOL UD 3ML (DUONEB)(J7620) NEB PRN (16:08)
--- NOTE | 2018-09-25 17:48 | IPNPDOC ---
Subjective Date Seen The patient was seen on 09/25/18. Subjective Chief Complaint/HPI Subjective: 58 yo Female admitted for COPD exacerbation, history of multiple similar admission. Interval history: Reported slight improvement today but SOB persistent. No acute events reported overnight. Objective Physical Examination Other physical findings General: No acute distress, Alert Eyes: Normal sclera, EOMI, LISA HENT: Atraumatic, neck supple, moist mucous membranes Cardiovascular: Normal rate, normal rhythm. No murmurs appreciated. Pulmonary: Decrease air entry with b/l wheezing. GI: Soft, nontender, nondistended Skin: Warm and dry Neuro: CN grossly intact. No focal deficits. Strengths equal b/l. Psych: oriented x 3 Assessment /Plan Assessment ASSESSMENT AND PLAN: 1. COPD exacerbation - c/w nebs. O2 support. - c/w doxycycline. - taper steroids as tolerated. Slight clinical improvement. - No infiltrate on CXR. 2. hx HFpEF - c/w home medication torsemide and aldactone. 3. Anxiety/Depression - c/w home medications 4. hx PE/DVT - c/w Xarelto. DVT- already on Xarelto. Patient is high risk due to COPD exacerbation Estimated length of stay 3-4 days with expected disposition to home. Plan/VTE VTE Prophylaxis Ordered?: Yes VS, I&O, 24H, Fishbone Vital Signs/I&O Vital Signs Date Time Temp Pulse Resp B/P (MAP) Pulse Ox O2 Delivery O2 Flow Rate FiO2 09/25/18 16:26 18 09/25/18 14:00 97.9 105 125/83 (97) 97 2.0 09/23/18 17:10 Nasal Cannula I&O- Last 24 Hours up to 6 AM 09/25/18 06:00 Intake Total 1200 ml Output Total 0 ml Balance 1200 ml Laboratory Data 24H LABS Laboratory Tests 2 09/25/18 05:58: Nucleated Red Blood Cells % (auto) 0.0, Anion Gap 5L, Glomerular Filtration Rate 57.5, Blood Urea Nitrogen 37#H, Creatinine 1.04, Sodium Level 135L, Potassium Level 4.1, Chloride Level 97L, Carbon Dioxide Level 33H, Calcium Level 9.6, Phosphorus Level 3.7, Magnesium Level 2.3 CBC/BMP Laboratory Tests 09/25/18 05:58 Red Blood Count 4.40, Mean Corpuscular Volume 88.9, Mean Corpuscular Hemoglobin 27.7, Mean Corpuscular Hemoglobin Concent 31.2 L, Red Cell Distribution Width 15.0 H, Calcium Level 9.6 Microbiology Microbiology 09/23/18 Blood Culture - Preliminary, Resulted No Growth after 48 hours. All Specime... 09/23/18 Blood Culture - Preliminary, Resulted No Growth after 48 hours. All Specime... 09/24/18 Respiratory Virus Panel (PCR) (JAMES) - Final, Complete LISANDRO LANDAVERDE MD Sep 25, 2018 17:48
[2018-09-25] MEDS: ACETYLCYSTEINE 20% 4 ML VIAL (200MG/ML) INH SCH (19:54)
[2018-09-25] MEDS: SIMVASTATIN 20 MG TAB PO SCH (20:14)
[2018-09-25] MEDS: SENNA 8.6 MG TAB (SENOKOT) PO SCH (20:14)
[2018-09-25] MEDS: traZODone 50 MG TAB PO SCH (20:14)
[2018-09-25 22:00] VITALS: BP 126/81
[2018-09-26] MEDS: dexameTHASONE 4 MG/ML 1ML VIAL (J1100) IV SCH ×2 (00:21→12:32)
[2018-09-26] MEDS: IPRATROPIUM 0.5MG/ALBUTEROL 2.5MG INH SOL UD 3ML (DUONEB)(J7620) NEB PRN ×4 (03:59→23:37)
[2018-09-26] MEDS: PERCOCET 5MG/325MG TAB PO PRN ×5 (04:14→21:25)
[2018-09-26 06:00] VITALS: BP 138/74
[2018-09-26 06:18] LABS: HEMATOCRIT 38.4 % (36.0-47.0); HEMOGLOBIN 11.5 g/dl (12.0-15.5); MEAN CORPUSCULAR HEMOGLOBIN 27.1 pg (27.0-33.0); MEAN CORPUSCULAR HGB CONC 29.9 g/dl (32.0-36.5); MEAN CORPUSCULAR VOLUME 90.4 fl (80.0-96.0); PLATELET COUNT, AUTOMATED 223 10^3/uL (150-450); RED BLOOD COUNT 4.25 10^6/uL (4.00-5.40); WHITE BLOOD COUNT 8.6 10^3/uL (4.0-10.0)
[2018-09-26 06:44] LABS: BLOOD UREA NITROGEN 39 MG/DL (7-18); CALCIUM LEVEL 9.3 MG/DL (8.8-10.2); CARBON DIOXIDE LEVEL 33 MEQ/L (21-32); CHLORIDE LEVEL 101 MEQ/L (98-107); GLOMERULAR FILTRATION RATE > 60.0 (>45); GLUCOSE, FASTING 126 MG/DL (70-100); POTASSIUM SERUM 4.7 MEQ/L (3.5-5.1); SODIUM LEVEL 138 MEQ/L (136-145)
[2018-09-26] MEDS: IPRATROPIUM 0.5MG/ALBUTEROL 2.5MG INH SOL UD 3ML (DUONEB)(J7620) NEB SCH ×3 (07:21→20:46)
[2018-09-26] MEDS: ACETYLCYSTEINE 20% 4 ML VIAL (200MG/ML) INH SCH ×2 (07:21→20:46)
[2018-09-26] MEDS: MIDODRINE 5 MG TAB PO SCH ×2 (07:57→16:34)
[2018-09-26] MEDS: SPIRONOLACTONE 25 MG TAB PO SCH ×2 (07:57→16:34)
[2018-09-26] MEDS: OMEPRAZOLE 20 MG CAP PO SCH ×2 (07:57→21:25)
[2018-09-26] MEDS: DOXYCYCLINE HYCLATE 100 MG TAB PO SCH ×2 (07:57→21:25)
[2018-09-26] MEDS: TORSEMIDE 20 MG TAB PO SCH (07:58)
[2018-09-26] MEDS: RIVAROXABAN 10 MG TAB (XARELTO) PO SCH (07:58)
[2018-09-26] MEDS: ESCITALOPRAM OXALATE 10 MG TAB (LEXAPRO) PO SCH (07:58)
[2018-09-26] MEDS: lamoTRIgine 100MG TAB PO SCH (07:58)
[2018-09-26] MEDS: ALPRAZolam 0.5 MG TAB PO SCH (07:58)
--- NOTE | 2018-09-26 13:24 | CR ---
DATE OF CONSULTATION: 09/25/2018 CHIEF COMPLAINT: Shortness breath and cough. HISTORY OF PRESENT ILLNESS: Ms. Alfred is a 58-year-old female with a past medical history of chronic obstructive pulmonary disease (COPD) with chronic hypoxemic respiratory failure on 2 liters nasal cannula oxygen supplementation, history of deep vein thrombosis (DVT)/pulmonary embolism (PE) on Xarelto, coronary artery disease, hypertension, gastroesophageal reflux disease, anxiety, diastolic congestive heart failure, pulmonary hypertension, and orthostatic hypotension who presented with complaints of increasing cough and shortness of breath with chest tightness. The patient has a history of recurrent exacerbations requiring hospitalizations. She was previously hospitalized in August with COPD exacerbation. The patient has been following with me in the pulmonary clinic. We had attempted to start her on Daliresp given her history of frequent COPD exacerbations and hospitalizations, however, she was unable to tolerate it as she felt she had worsening of her mood disorder and insomnia with the Daliresp. The patient would be a good candidate for prophylactic azithromycin, however, she has multiple allergies including allergy to erythromycin with reported allergic reaction of hives and swelling to erythromycin and azithromycin. The patient has been on Breo as well as DuoNebs every 4 hours and albuterol inhaler which she is also using multiple times during the day. She was started on dexamethasone for steroids as well as doxycycline while in the hospital for her acute COPD exacerbation. She currently reports that she feels her breathing has improved slightly, however, she continues to have a cough and feels that she has mucus that is difficult to expectorate. PAST MEDICAL HISTORY: 1. COPD with chronic hypoxemic respiratory failure. 2. DVT and PE on Xarelto. 3. Iron deficiency anemia. 4. CAD. 5. Hypertension. 6. Gastroesophageal reflux disease. 7. Anxiety. 8. Chronic pain and degenerative joint disease. 9. CHF. 10. Orthostatic hypotension. 11. Pulmonary hypertension. PAST SURGICAL HISTORY: 1. Leg surgeries. 2. Right hip replacement. 3. Hysterectomy. 4. Bladder tuck. 5. Cataract surgery. SOCIAL HISTORY: Former smoker, was one to two packs a day for 38 years, quit in 2010. No alcohol use or illicit drug use. 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 FAMILY HISTORY: Mother with history of hypertension, hyperlipidemia, coronary artery disease and unknown cancer. Father with history of lung and throat cancer. Siblings with history of cancer and COPD. A daughter with diabetes and another daughter with lupus. ALLERGIES: - AUGMENTIN - MORPHINE - AVELOX - ERYTHROMYCIN - KEFLEX - SULFA - BIAXIN - SOLU-MEDROL - CIPROFLOXACIN HOME MEDICATIONS: - iron sulfate - trazodone - simvastatin - aspirin - Percocet as needed - vitamin D - Zofran - omeprazole - spironolactone - Ventolin - Breo - DuoNebs - nitroglycerin p.r.n. - lamotrigine - folic acid - escitalopram - torsemide - Xarelto - midodrine - alprazolam as needed PHYSICAL EXAMINATION: Temperature 96.8, pulse 97, respirations 18, blood pressure 128/74, O2 sat 98% on 2 liters nasal cannula. General: Patient is sitting in bed and is in no acute respiratory distress and is able to speak in complete sentences and is not using any accessory muscles for respiration. HEENT: Normocephalic, atraumatic. Mucous membranes are moist. Neck is supple. Trachea is midline. No palpable adenopathy, but some tenderness to palpation in the superficial cervical lymph nodes. Cardiac: Difficult to auscultate, but regular S1 and S2 and no murmurs appreciated. Pulmonary: Some diminished breath sounds bilaterally with coarse wheezes and rhonchi. Abdomen is obese and soft. No palpable masses. Nontender to palpation. Extremities: There is some trace lower extremity bilaterally and some well healed scars in the lower extremity. LABS: WBC 9.5, hemoglobin 12.2, platelets 236. Chemistry: Sodium 135, potassium 4.1, chloride 97, bicarb 33, BUN 37, creatinine 1.04, glucose is 121. BNP was 44. VBG: pH of 7.412, pCO2 was 59.2, pO2 of 56.3. RSV panel was negative. Chest x-ray dhows some hyperinflation, no focal opacities or infiltrates. ASSESSMENT/PLAN: The patient is a 58-year-old female with past medical history of COPD with chronic hypoxemic respiratory failure on nasal cannula oxygen supplementation, history of DVT and PE on Xarelto, history of CHF and pulmonary hypertension, history of hyperlipidemia, anxiety and depression who presented with increasing shortness of breath, cough and chest tightness. The patient was admitted for acute COPD exacerbation. She did not have any evidence of infiltrates on her chest x-ray, there was hyperinflation noted only. Her respiratory syncytial virus (RSV) panel was negative. The patient is on dexamethasone for her COPD exacerbation as well as with doxycycline. She is also on DuoNebs [id number]. The patient reported some slight improvement, however, she continues to report a cough with difficult to expectorate sputum. Therefore, will trial her on Mucomyst nebulizers to be given with albuterol twice a day and to be used with an Acapella device after the Mucomyst treatment to see if she has improved pulmonary toilet and mucus clearance. Otherwise, will continue with her steroids and with doxycycline. She will likely need a prolonged taper of steroids. Continue with her DuoNeb treatments. The patient has a history of frequent recurrent COPD exacerbations. She had previously been tried on Daliresp as an outpatient, but was unable to tolerate it and refused to continue using it due to the side effects. She would be a good candidate for prophylactic antibiotics; however, she has an allergy to azithromycin reportedly. There was also some concern for obstructive sleep apnea given her history of some sleep symptoms. She had a home sleep study done, however, it was negative, but the patient reported that on the night of her home study she had not slept at all during the night. Therefore, she was referred for an in-lab sleep study as an outpatient which she has not had done yet. Will followup with the patient as an outpatient. Continue DVT prophylaxis with full anticoagulation with the Xarelto.
[2018-09-26 14:00] VITALS: BP 128/82
--- NOTE | 2018-09-26 17:56 | IPNPDOC ---
Subjective Date Seen The patient was seen on 09/26/18. Subjective Chief Complaint/HPI Subjective: 58 yo Female admitted for COPD exacerbation, history of multiple similar admission. Interval history: Reported continues to report feeling slightly better but cough is persistent and still very SOB. Objective Physical Examination Other physical findings General: No acute distress, Alert Eyes: Normal sclera, EOMI, LISA HENT: Atraumatic, neck supple, moist mucous membranes Cardiovascular: Normal rate, normal rhythm. No murmurs appreciated. Pulmonary: Decrease air entry with mild b/l wheezing. GI: Soft, nontender, nondistended Skin: Warm and dry Neuro: CN grossly intact. No focal deficits. Strengths equal b/l. Psych: oriented x 3 Assessment /Plan Assessment ASSESSMENT AND PLAN: 1. COPD exacerbation - c/w nebs. O2 support. - c/w doxycycline. - taper steroids as tolerated. Slight clinical improvement. - No infiltrate on CXR. - Evaluated by Pulmology, medication changes were made. Will continue to follow patient as outpatient. 2. hx HFpEF - c/w home medication torsemide and aldactone. 3. Anxiety/Depression - c/w home medications 4. hx PE/DVT - c/w Xarelto. DVT- already on Xarelto. Patient is high risk due to COPD exacerbation Estimated length of stay 3-4 days with expected disposition to home. Plan/VTE VTE Prophylaxis Ordered?: Yes VS, I&O, 24H, Fishbone Vital Signs/I&O Vital Signs Date Time Temp Pulse Resp B/P (MAP) Pulse Ox O2 Delivery O2 Flow Rate FiO2 09/26/18 17:05 22 09/26/18 14:00 97.8 103 128/82 (97) 96 2.0 09/23/18 17:10 Nasal Cannula I&O- Last 24 Hours up to 6 AM 09/26/18 06:00 Intake Total 2120 ml Output Total 1400 ml Balance 720 ml Laboratory Data 24H LABS Laboratory Tests 2 09/26/18 05:51: Nucleated Red Blood Cells % (auto) 0.0, Anion Gap 4L, Glomerular Filtration Rate > 60.0, Blood Urea Nitrogen 39H, Creatinine 1.00, Sodium Level 138, Potassium Level 4.7, Chloride Level 101, Carbon Dioxide Level 33H, Calcium Level 9.3 CBC/BMP Laboratory Tests 09/26/18 05:51 Red Blood Count 4.25, Mean Corpuscular Volume 90.4, Mean Corpuscular Hemoglobin 27.1, Mean Corpuscular Hemoglobin Concent 29.9 L, Red Cell Distribution Width 15.2 H, Calcium Level 9.3 Microbiology Microbiology 09/23/18 Blood Culture - Preliminary, Resulted No Growth after 72 hours. All specime... 09/23/18 Blood Culture - Preliminary, Resulted No Growth after 72 hours. All specime... 09/25/18 Gram Stain - Final, Resulted 09/25/18 Sputum Culture - Preliminary, Resulted Staphylococcus Aureus 09/24/18 Respiratory Virus Panel (PCR) ([facility]) - Final, Complete LISANDRO LANDAVERDE MD Sep 26, 2018 17:56
[2018-09-26] MEDS: traZODone 50 MG TAB PO SCH (21:25)
[2018-09-26] MEDS: SENNA 8.6 MG TAB (SENOKOT) PO SCH (21:25)
[2018-09-26] MEDS: SIMVASTATIN 20 MG TAB PO SCH (21:25)
[2018-09-26 22:00] VITALS: BP 140/75
[2018-09-27] MEDS: dexameTHASONE 4 MG/ML 1ML VIAL (J1100) IV SCH ×2 (00:21→13:57)
[2018-09-27] MEDS: IPRATROPIUM 0.5MG/ALBUTEROL 2.5MG INH SOL UD 3ML (DUONEB)(J7620) NEB SCH ×5 (01:34→23:46)
[2018-09-27] MEDS: IPRATROPIUM 0.5MG/ALBUTEROL 2.5MG INH SOL UD 3ML (DUONEB)(J7620) NEB PRN ×2 (04:33→11:50)
[2018-09-27] MEDS: PERCOCET 5MG/325MG TAB PO PRN ×5 (04:36→22:49)
[2018-09-27 06:00] VITALS: BP 143/80
[2018-09-27 06:22] LABS: HEMATOCRIT 38.1 % (36.0-47.0); HEMOGLOBIN 11.5 g/dl (12.0-15.5); MEAN CORPUSCULAR HEMOGLOBIN 27.6 pg (27.0-33.0); MEAN CORPUSCULAR HGB CONC 30.2 g/dl (32.0-36.5); MEAN CORPUSCULAR VOLUME 91.6 fl (80.0-96.0); PLATELET COUNT, AUTOMATED 217 10^3/uL (150-450); RED BLOOD COUNT 4.16 10^6/uL (4.00-5.40); WHITE BLOOD COUNT 8.1 10^3/uL (4.0-10.0)
[2018-09-27 06:50] LABS: BLOOD UREA NITROGEN 35 MG/DL (7-18); CALCIUM LEVEL 9.3 MG/DL (8.8-10.2); CARBON DIOXIDE LEVEL 32 MEQ/L (21-32); CHLORIDE LEVEL 101 MEQ/L (98-107); GLOMERULAR FILTRATION RATE > 60.0 (>45); GLUCOSE, FASTING 130 MG/DL (70-100); POTASSIUM SERUM 4.3 MEQ/L (3.5-5.1); SODIUM LEVEL 138 MEQ/L (136-145)
[2018-09-27] MEDS: ACETYLCYSTEINE 20% 4 ML VIAL (200MG/ML) INH SCH ×2 (07:37→20:00)
[2018-09-27 08:30] VITALS: BP 131/67
[2018-09-27] MEDS: OMEPRAZOLE 20 MG CAP PO SCH ×2 (08:42→21:15)
[2018-09-27] MEDS: RIVAROXABAN 10 MG TAB (XARELTO) PO SCH (08:42)
[2018-09-27] MEDS: SPIRONOLACTONE 25 MG TAB PO SCH ×2 (08:43→16:13)
[2018-09-27] MEDS: TORSEMIDE 20 MG TAB PO SCH (08:45)
[2018-09-27] MEDS: DOXYCYCLINE HYCLATE 100 MG TAB PO SCH ×2 (08:46→21:16)
[2018-09-27] MEDS: MIDODRINE 5 MG TAB PO SCH ×2 (08:46→16:13)
[2018-09-27] MEDS: ESCITALOPRAM OXALATE 10 MG TAB (LEXAPRO) PO SCH (08:47)
[2018-09-27] MEDS: lamoTRIgine 100MG TAB PO SCH (08:50)
[2018-09-27] MEDS: ALPRAZolam 0.5 MG TAB PO SCH (08:54)
[2018-09-27 14:00] VITALS: BP 135/71
--- NOTE | 2018-09-27 16:05 | IPNPDOC ---
Date Seen The patient was seen on 09/27/18. Progress Note SUBJECTIVE: Patient tells me that she is actually feeling much better his breathing close to her normal she denies any complaints at this time whatsoever she denies chest pressure shortness of breath fevers chills nausea vomiting or diarrhea OBJECTIVE PHYSICAL EXAMINATION: VITAL SIGNS: Please see below. GENERAL: Morbidly obese female lying flat in bed in no acute distress HEENT: Cranial nerves II-12 grossly intact CARDIOVASCULAR: No elevation in CVP. RESPIRATORY: Good air movement bilaterally no audible wheeze. ABDOMINAL: Obese bowel sounds present abdomen soft and nontender EXTREMITIES: No clubbing cyanosis or edema LABORATORY DATA, IMAGING STUDIES, MICROBIOLOGY: Please see below. DVT prophylaxis ordered?: Xarelto ASSESSMENT AND PLAN: This is a 58 year-old female with shortness of breath likely secondary to decompensated COPD. PROBLEMS: 1. COPD exacerbation: Pulmonary consult greatly appreciated. He was never lets does appear to help the patient as well as Acapella she's continued on steroids and doxycycline as well as duo nebs. She appears to be at her baseline respiratory status today. She will need further outpatient follow-up with pulmonary, I will have PT work with her today she is told me she is agreeable to working with him at this time 2. Diastolic congestive heart failure: She's continued on torsemide and Aldactone she does not appear to be volume overloaded at this time appears chronic and stable. She is also on Aldactone 3. Mood disorder: Continuous Xanax Lexapro and trazodone and Lamictal. 4. History of DVT PE: Continue with Xarelto 5. Gastroesophageal reflux disease: Continue with omeprazole 6. Chronic pain: Continue with oxycodone 7. Chronic hypotension: Continue with midodrine 8. Dyslipidemia: Continue simvastatin DISPOSITION: Pending PT. VS, I&O, 24H, Fishbone Vital Signs/I&O Vital Signs Date Time Temp Pulse Resp B/P (MAP) Pulse Ox O2 Delivery O2 Flow Rate FiO2 09/27/18 14:00 96.9 99 18 135/71 (92) 97 1.0 09/23/18 17:10 Nasal Cannula I&O- Last 24 Hours up to 6 AM 09/27/18 06:00 Intake Total 2280 ml Output Total 3250 ml Balance -970 ml Laboratory Data 24H LABS Laboratory Tests 2 09/27/18 05:34: Nucleated Red Blood Cells % (auto) 0.0, Anion Gap 5L, Glomerular Filtration Rate > 60.0, Blood Urea Nitrogen 35H, Creatinine 1.00, Sodium Level 138, Potassium Level 4.3, Chloride Level 101, Carbon Dioxide Level 32, Calcium Level 9.3 CBC/BMP Laboratory Tests 09/27/18 05:34 Red Blood Count 4.16, Mean Corpuscular Volume 91.6, Mean Corpuscular Hemoglobin 27.6, Mean Corpuscular Hemoglobin Concent 30.2 L, Red Cell Distribution Width 15.0 H, Calcium Level 9.3 Microbiology Microbiology 09/23/18 Blood Culture - Preliminary, Resulted No Growth after 72 hours. All specime... 09/23/18 Blood Culture - Preliminary, Resulted No Growth after 72 hours. All specime... 09/25/18 Gram Stain - Final, Resulted 09/25/18 Sputum Culture - Preliminary, Resulted Staphylococcus Aureus 09/24/18 Respiratory Virus Panel (PCR) ([facility]) - Final, Complete SILVESTRE SUTTON MD Sep 27, 2018 16:05
[2018-09-27] MEDS: traZODone 50 MG TAB PO SCH (21:15)
[2018-09-27] MEDS: SIMVASTATIN 20 MG TAB PO SCH (21:16)
[2018-09-27] MEDS: SENNA 8.6 MG TAB (SENOKOT) PO SCH (21:16)
[2018-09-27 22:00] VITALS: BP 134/69
[2018-09-28] MEDS: dexameTHASONE 4 MG/ML 1ML VIAL (J1100) IV SCH ×2 (00:22→14:01)
[2018-09-28] MEDS: IPRATROPIUM 0.5MG/ALBUTEROL 2.5MG INH SOL UD 3ML (DUONEB)(J7620) NEB PRN ×3 (03:31→23:48)
[2018-09-28] MEDS: PERCOCET 5MG/325MG TAB PO PRN ×5 (03:36→22:59)
[2018-09-28 06:00] VITALS: BP 138/71
[2018-09-28 07:20] LABS: HEMATOCRIT 38.9 % (36.0-47.0); HEMOGLOBIN 11.7 g/dl (12.0-15.5); MEAN CORPUSCULAR HEMOGLOBIN 27.9 pg (27.0-33.0); MEAN CORPUSCULAR HGB CONC 30.1 g/dl (32.0-36.5); MEAN CORPUSCULAR VOLUME 92.8 fl (80.0-96.0); PLATELET COUNT, AUTOMATED 213 10^3/uL (150-450); RED BLOOD COUNT 4.19 10^6/uL (4.00-5.40); WHITE BLOOD COUNT 8.5 10^3/uL (4.0-10.0)
[2018-09-28 07:40] LABS: BLOOD UREA NITROGEN 31 MG/DL (7-18); CALCIUM LEVEL 9.4 MG/DL (8.8-10.2); CARBON DIOXIDE LEVEL 33 MEQ/L (21-32); CHLORIDE LEVEL 101 MEQ/L (98-107); GLOMERULAR FILTRATION RATE > 60.0 (>45); GLUCOSE, FASTING 110 MG/DL (70-100); POTASSIUM SERUM 4.6 MEQ/L (3.5-5.1); SODIUM LEVEL 139 MEQ/L (136-145)
[2018-09-28] MEDS: ACETYLCYSTEINE 20% 4 ML VIAL (200MG/ML) INH SCH ×2 (08:34→21:06)
[2018-09-28] MEDS: IPRATROPIUM 0.5MG/ALBUTEROL 2.5MG INH SOL UD 3ML (DUONEB)(J7620) NEB SCH ×3 (08:34→21:07)
[2018-09-28] MEDS: OMEPRAZOLE 20 MG CAP PO SCH ×2 (09:24→21:51)
[2018-09-28] MEDS: TORSEMIDE 20 MG TAB PO SCH (09:25)
[2018-09-28] MEDS: SPIRONOLACTONE 25 MG TAB PO SCH ×2 (09:25→18:07)
[2018-09-28] MEDS: MIDODRINE 5 MG TAB PO SCH ×2 (09:25→18:07)
[2018-09-28] MEDS: ESCITALOPRAM OXALATE 10 MG TAB (LEXAPRO) PO SCH (09:25)
[2018-09-28] MEDS: DOXYCYCLINE HYCLATE 100 MG TAB PO SCH ×2 (09:25→21:50)
[2018-09-28] MEDS: ALPRAZolam 0.5 MG TAB PO SCH (09:25)
[2018-09-28] MEDS: RIVAROXABAN 10 MG TAB (XARELTO) PO SCH (09:25)
[2018-09-28] MEDS: lamoTRIgine 100MG TAB PO SCH (09:26)
[2018-09-28 14:00] VITALS: BP 123/70
--- NOTE | 2018-09-28 15:00 | IPNPDOC ---
Date Seen The patient was seen on 09/28/18. Progress Note SUBJECTIVE: Patient tells me that she is actually feeling much better she has no complaints, she tells me that she is going home on Sunday regardless of PT clearance or what anybody says. OBJECTIVE PHYSICAL EXAMINATION: VITAL SIGNS: Please see below. GENERAL: Morbidly obese female lying flat in bed in no acute distress watching television peacefully HEENT: Cranial nerves II-12 grossly intact CARDIOVASCULAR: No elevation in CVP. RESPIRATORY: Good air movement bilaterally no audible wheeze. ABDOMINAL: Obese bowel sounds present abdomen soft and nontender EXTREMITIES: No clubbing cyanosis or edema LABORATORY DATA, IMAGING STUDIES, MICROBIOLOGY: Please see below. DVT prophylaxis ordered?: Xarelto ASSESSMENT AND PLAN: This is a 58 year-old female with shortness of breath li natalie secondary to decompensated COPD. PROBLEMS: 1. COPD exacerbation: Resolving, pulmonary consult greatly appreciated, appears patient doing well with Acapella she's continued on steroids and doxycycline as well as duo nebs. She appears to be at her baseline respiratory status today. She will need further outpatient follow-up with pulmonary, I will wean her steroids today to PO prednisone. 2. Diastolic congestive heart failure: She's continued on torsemide and Aldactone she does not appear to be volume overloaded at this time appears chronic and stable. She is also on Aldactone 3. Mood disorder: Continuous Xanax Lexapro and trazodone and Lamictal. 4. History of DVT PE: Continue with Xarelto 5. Gastroesophageal reflux disease: Continue with omeprazole 6. Chronic pain: Continue with oxycodone 7. Chronic hypotension: Continue with midodrine 8. Dyslipidemia: Continue simvastatin DISPOSITION: Pending PT, likely home Sunday I suspect. VS, I&O, 24H, Fishbone Vital Signs/I&O Vital Signs Date Time Temp Pulse Resp B/P (MAP) Pulse Ox O2 Delivery O2 Flow Rate FiO2 09/28/18 14:32 18 1 09/28/18 14:00 98.3 101 123/70 (87) 1.0 09/23/18 17:10 Nasal Cannula I&O- Last 24 Hours up to 6 AM 09/28/18 06:00 Intake Total 1050 ml Output Total 1500 ml Balance -450 ml Laboratory Data 24H LABS Laboratory Tests 2 09/28/18 06:29: Nucleated Red Blood Cells % (auto) 0.0, Anion Gap 5L, Glomerular Filtration Rate > 60.0, Blood Urea Nitrogen 31H, Creatinine 0.80, Sodium Level 139, Potassium Level 4.6, Chloride Level 101, Carbon Dioxide Level 33H, Calcium Level 9.4 CBC/BMP Laboratory Tests 09/28/18 06:29 Red Blood Count 4.19, Mean Corpuscular Volume 92.8, Mean Corpuscular Hemoglobin 27.9, Mean Corpuscular Hemoglobin Concent 30.1 L, Red Cell Distribution Width 15.0 H, Calcium Level 9.4 Microbiology Microbiology 09/23/18 Blood Culture - Final, Complete NO GROWTH AFTER 5 DAYS 09/23/18 Blood Culture - Final, Complete NO GROWTH AFTER 5 DAYS 09/25/18 Gram Stain - Final, Complete 09/25/18 Sputum Culture - Final, Complete Staphylococcus Aureus 09/24/18 Respiratory Virus Panel (PCR) ([facility]) - Final, Complete SILVESTRE SUTTON MD Sep 28, 2018 15:00
[2018-09-28] MEDS: SENNA 8.6 MG TAB (SENOKOT) PO SCH (21:50)
[2018-09-28] MEDS: SIMVASTATIN 20 MG TAB PO SCH (21:50)
[2018-09-28] MEDS: traZODone 50 MG TAB PO SCH (21:51)
[2018-09-28 22:00] VITALS: BP 126/83
[2018-09-29] MEDS: IPRATROPIUM 0.5MG/ALBUTEROL 2.5MG INH SOL UD 3ML (DUONEB)(J7620) NEB SCH ×4 (02:00→20:45)
[2018-09-29] MEDS: PERCOCET 5MG/325MG TAB PO PRN ×5 (03:31→21:43)
[2018-09-29] MEDS: IPRATROPIUM 0.5MG/ALBUTEROL 2.5MG INH SOL UD 3ML (DUONEB)(J7620) NEB PRN ×2 (04:25→15:46)
[2018-09-29 06:00] VITALS: BP 130/88
[2018-09-29 07:07] LABS: HEMATOCRIT 39.4 % (36.0-47.0); MEAN CORPUSCULAR HEMOGLOBIN 27.6 pg (27.0-33.0); MEAN CORPUSCULAR HGB CONC 30.5 g/dl (32.0-36.5); MEAN CORPUSCULAR VOLUME 90.6 fl (80.0-96.0); PLATELET COUNT, AUTOMATED 224 10^3/uL (150-450); RED BLOOD COUNT 4.35 10^6/uL (4.00-5.40); WHITE BLOOD COUNT 11.5 10^3/uL (4.0-10.0)
[2018-09-29] MEDS: ACETYLCYSTEINE 20% 4 ML VIAL (200MG/ML) INH SCH ×2 (07:20→20:00)
[2018-09-29 07:45] LABS: CREATININE FOR GFR 1.04 MG/DL (0.55-1.30); GLOMERULAR FILTRATION RATE 57.5 (>45); POTASSIUM SERUM 4.3 MEQ/L (3.5-5.1)
[2018-09-29] MEDS: SPIRONOLACTONE 25 MG TAB PO SCH ×2 (08:32→16:56)
[2018-09-29] MEDS: TORSEMIDE 20 MG TAB PO SCH (08:32)
[2018-09-29] MEDS: OMEPRAZOLE 20 MG CAP PO SCH ×2 (08:32→21:42)
[2018-09-29] MEDS: MIDODRINE 5 MG TAB PO SCH ×2 (08:32→16:57)
[2018-09-29] MEDS: ESCITALOPRAM OXALATE 10 MG TAB (LEXAPRO) PO SCH (08:32)
[2018-09-29] MEDS: DOXYCYCLINE HYCLATE 100 MG TAB PO SCH (08:32)
[2018-09-29] MEDS: predniSONE 20 MG TAB PO SCH (08:32)
[2018-09-29] MEDS: ALPRAZolam 0.5 MG TAB PO SCH (08:33)
[2018-09-29] MEDS: RIVAROXABAN 10 MG TAB (XARELTO) PO SCH (08:33)
[2018-09-29] MEDS: lamoTRIgine 100MG TAB PO SCH (08:33)
--- NOTE | 2018-09-29 11:52 | IPNPDOC ---
Date Seen The patient was seen on 09/29/18. Progress Note SUBJECTIVE: Patient tells me that she is actually feeling well today she has no complaints. She reiterates to me that she is going home tomorrow regardless of whether she passes PT or not. OBJECTIVE PHYSICAL EXAMINATION: VITAL SIGNS: Please see below. GENERAL: Morbidly obese female lying flat in bed in no acute distress watching television in no acute distress HEENT: Cranial nerves II-12 grossly intact CARDIOVASCULAR: No elevation in CVP. RESPIRATORY: Good air movement bilaterally no audible wheeze. ABDOMINAL: Obese bowel sounds present abdomen soft and nontender EXTREMITIES: No clubbing cyanosis or edema LABORATORY DATA, IMAGING STUDIES, MICROBIOLOGY: Please see below. DVT prophylaxis ordered?: Xarelto ASSESSMENT AND PLAN: This is a 58 year-old female with shortness of breath likely secondary to decompensated COPD. PROBLEMS: 1. COPD exacerbation: Resolving, pulmonary consult greatly appreciated, appears patient doing well with Acapella she's continued on steroids and doxycycline as well as duo nebs. We'll discontinue doxycycline today She appears to be at her baseline respiratory status today. She will need further outpatient follow-up with pulmonary. Continue with prednisone taper 2. Diastolic congestive heart failure: She's continued on torsemide and Natalya ctone she does not appear to be volume overloaded at this time appears chronic and stable. She is also on Aldactone 3. Mood disorder: Continuous Xanax Lexapro and trazodone and Lamictal. 4. History of DVT PE: Continue with Xarelto 5. Gastroesophageal reflux disease: Continue with omeprazole 6. Chronic pain: Continue with oxycodone 7. Chronic hypotension: Continue with midodrine 8. Dyslipidemia: Continue simvastatin DISPOSITION: Pending PT, likely home tomorrow VS, I&O, 24H, Fishbone Vital Signs/I&O Vital Signs Date Time Temp Pulse Resp B/P (MAP) Pulse Ox O2 Delivery O2 Flow Rate FiO2 09/29/18 10:44 1.0 09/29/18 08:10 18 09/29/18 06:00 97.4 95 130/88 (102) 96 09/23/18 17:10 Nasal Cannula I&O- Last 24 Hours up to 6 AM 09/29/18 06:00 Intake Total 2100 ml Output Total 2150 ml Balance -50 ml Laboratory Data 24H LABS Laboratory Tests 2 09/29/18 06:48: Nucleated Red Blood Cells % (auto) 0.0, Anion Gap 5L, Glomerular Filtration Rate 57.5, Blood Urea Nitrogen 37H, Creatinine 1.04, Sodium Level 138, Potassium Level 4.3, Chloride Level 100, Carbon Dioxide Level 33H, Calcium Level 9.0 CBC/BMP Laboratory Tests 09/29/18 06:48 Red Blood Count 4.35, Mean Corpuscular Volume 90.6, Mean Corpuscular Hemoglobin 27.6, Mean Corpuscular Hemoglobin Concent 30.5 L, Red Cell Distribution Width 15.2 H, Calcium Level 9.0 Microbiology Microbiology 09/23/18 Blood Culture - Final, Complete NO GROWTH AFTER 5 DAYS 09/23/18 Blood Culture - Final, Complete NO GROWTH AFTER 5 DAYS 09/25/18 Gram Stain - Final, Complete 09/25/18 Sputum Culture - Final, Complete Staphylococcus Aureus 09/24/18 Respiratory Virus Panel (PCR) ([facility]) - Final, Complete SILVESTRE SUTTON MD Sep 29, 2018 11:52
[2018-09-29 14:00] VITALS: BP 114/84
[2018-09-29] MEDS: SENNA 8.6 MG TAB (SENOKOT) PO SCH (21:42)
[2018-09-29] MEDS: traZODone 50 MG TAB PO SCH (21:42)
[2018-09-29] MEDS: SIMVASTATIN 20 MG TAB PO SCH (21:43)
[2018-09-29 22:00] VITALS: BP 137/78
[2018-09-30] MEDS: IPRATROPIUM 0.5MG/ALBUTEROL 2.5MG INH SOL UD 3ML (DUONEB)(J7620) NEB SCH ×3 (01:15→13:11)
[2018-09-30] MEDS: PERCOCET 5MG/325MG TAB PO PRN ×3 (04:06→12:45)
[2018-09-30] MEDS: IPRATROPIUM 0.5MG/ALBUTEROL 2.5MG INH SOL UD 3ML (DUONEB)(J7620) NEB PRN (05:00)
[2018-09-30 06:00] VITALS: BP 140/77
[2018-09-30 06:24] LABS: HEMATOCRIT 40.2 % (36.0-47.0); HEMOGLOBIN 12.3 g/dl (12.0-15.5); MEAN CORPUSCULAR HEMOGLOBIN 27.5 pg (27.0-33.0); MEAN CORPUSCULAR HGB CONC 30.6 g/dl (32.0-36.5); MEAN CORPUSCULAR VOLUME 89.7 fl (80.0-96.0); PLATELET COUNT, AUTOMATED 235 10^3/uL (150-450); RED BLOOD COUNT 4.48 10^6/uL (4.00-5.40); WHITE BLOOD COUNT 13.5 10^3/uL (4.0-10.0)
[2018-09-30 06:38] LABS: CALCIUM LEVEL 9.1 MG/DL (8.8-10.2); CREATININE FOR GFR 1.05 MG/DL (0.55-1.30); GLOMERULAR FILTRATION RATE 56.9 (>45); POTASSIUM SERUM 4.5 MEQ/L (3.5-5.1)
[2018-09-30] MEDS: ACETYLCYSTEINE 20% 4 ML VIAL (200MG/ML) INH SCH (07:53)
[2018-09-30] MEDS: ESCITALOPRAM OXALATE 10 MG TAB (LEXAPRO) PO SCH (08:20)
[2018-09-30] MEDS: ALPRAZolam 0.5 MG TAB PO SCH (08:20)
[2018-09-30] MEDS: lamoTRIgine 100MG TAB PO SCH (08:20)
[2018-09-30] MEDS: RIVAROXABAN 10 MG TAB (XARELTO) PO SCH (08:21)
[2018-09-30] MEDS: OMEPRAZOLE 20 MG CAP PO SCH (08:21)
[2018-09-30] MEDS: SPIRONOLACTONE 25 MG TAB PO SCH (08:21)
[2018-09-30] MEDS: MIDODRINE 5 MG TAB PO SCH (08:21)
[2018-09-30] MEDS: TORSEMIDE 20 MG TAB PO SCH (08:22)
[2018-09-30] MEDS: predniSONE 20 MG TAB PO SCH (08:22)
[2018-09-30] MEDS ORDERED: PRED5PAK PO (12:18)
--- NOTE | 2018-09-30 13:51 | DS.PDOC ---
Discharge Summary General Date of Admission Sep 23, 2018 at 15:16 Date of Discharge 09/30/18 Primary Care Physician: PATRICK ELLINGTON DO Attending Physician: LISANDRO LANDAVERDE MD Discharge Summary PROCEDURES PERFORMED DURING STAY: [None]. ADMITTING DIAGNOSES: 1. COPD exacerbation 2. HFpEF 3. hx Orthostatic hypotension 4. hx PE/DVT on Xarelto 5. HLD DISCHARGE DIAGNOSES: 1. COPD exacerbation 2. HFpEF 3. hx Orthostatic hypotension 4. hx PE/DVT on Xarelto 5. HLD COMPLICATIONS/CHIEF COMPLAINT: Copd Exacerbation. HISTORY OF PRESENT ILLNESS: "Katrin Alfred is a 58-year-old, well known to the hospitalist service for recurrent hospitalizations for chronic obstructive pulmonary disease (COPD) exacerbation. She was just discharged one month ago on 08/16/2018 for exacerbation of COPD. She has a history of diastolic heart failure, history of pulmonary embolism and deep vein thrombosis (DVT) and on chronic anticoagulant therapy on Xarelto. Anxiety/depression, hyperlipidemia, degenerative disc disease of the cervical spine. She had an echocardiogram done in 12/2017 with a normal ejection fraction of 60 to 65%, some mild diastolic dysfunction, probably physiologic. She has a diagnosis of coronary artery disease, but she had a nuclear stress test in 04/2012 that was normal. Her last appointment at [facility] was in June 2018. I reviewed that note. They note a recent echocardiogram. She also had a cardiac catheterization in 07/2012 that was normal. No coronary artery disease and a normal ejection fraction, so essentially they treat her for some mild diastolic heart failure. She had a 30 day event monitor done for palpitations, this was just completed in June 2018. Two times that she had symptoms of palpitations and a racing fluttering heart, she is in sinus rhythm, rate of 77 to 102. She had no significant arrhythmias noted. She had a sleep test done 08/2018, this was also normal, it was a home sleep test." HOSPITAL COURSE: Patient is a 58-year-old female with past medical history of severe COPD with multiple hospitalization for COPD exacerbation. Patient was treated with antibiotics, doing nebs and steroids for approximately one week. Patient currently states that she feels better although at baseline she is always short of breath and that she is close to her baseline currently. Patient has physical therapy evaluation today, she reports worsening dyspnea with exertion but able to tolerate some physical activity. She feels that she is ready to go home at this time to follow up closely with her PCP and pulmonolog ist. We'll discharge patient to finish out prednisone taper course. DISCHARGE MEDICATIONS: Please see below. ALLERGIES: Please see below. PHYSICAL EXAMINATION ON DISCHARGE: VITAL SIGNS: Please see below. General: Mild respiratory distress, Alert Eyes: Normal sclera, EOMI, LISA HENT: Atraumatic, neck supple, moist mucous membranes Cardiovascular: Normal rate, normal rhythm. No murmurs appreciated. Pulmonary: Decrease air entry b/l. GI: Soft, nontender, nondistended Skin: Warm and dry Neuro: CN grossly intact. No focal deficits. Strengths equal b/l. Psych: oriented x 3 LABORATORY DATA: Please see below. IMAGING: CXR- Impression: Negative PA and lateral chest. There is no interval change. ACTIVITY: [As tolerated]. DIET: Regular diet DISCHARGE PLAN: Complete course of prednisone. f/u with PCP and Pulm. DISPOSITION: . DISCHARGE INSTRUCTIONS: 1. Compete course of prednisone. 2. f/u PCP and Pulm. ITEMS TO FOLLOWUP ON ON OUTPATIENT: None DISCHARGE CONDITION: [Stable]. TIME SPENT ON DISCHARGE: Greater than 31 minutes. Vital Signs/I&Os Vital Signs Date Time Temp Pulse Resp B/P (MAP) Pulse Ox O2 Delivery O2 Flow Rate FiO2 09/30/18 12:45 18 09/30/18 10:43 1.0 09/30/18 06:00 97.4 87 140/77 (98) 95 I&O- Last 24 Hours up to 6 AM 09/30/18 06:00 Intake Total 1260 ml Output Total 3000 ml Balance -1740 ml Laboratory Data Labs 24H Laboratory Tests 2 09/30/18 06:01: Nucleated Red Blood Cells % (auto) 0.0, Anion Gap 3L, Glomerular Filtration Rate 56.9, Blood Urea Nitrogen 36H, Creatinine 1.05, Sodium Level 137, Potassium Level 4.5, Chloride Level 99, Carbon Dioxide Level 35H, Calcium Level 9.1 CBC/BMP Laboratory Tests 09/30/18 06:01 Red Blood Count 4.48, Mean Corpuscular Volume 89.7, Mean Corpuscular Hemoglobin 27.5, Mean Corpuscular Hemoglobin Concent 30.6 L, Red Cell Distribution Width 15.6 H, Calcium Level 9.1 Microbiology Microbiology 09/23/18 Blood Culture - Final, Complete NO GROWTH AFTER 5 DAYS 09/23/18 Blood Culture - Final, Complete NO GROWTH AFTER 5 DAYS 09/25/18 Gram Stain - Final, Complete 09/25/18 Sputum Culture - Final, Complete Staphylococcus Aureus 09/24/18 Respiratory Virus Panel (PCR) (JAMES) - Final, Complete Discharge Medications Scheduled Alprazolam (Alprazolam) 1 Mg Tab, 1 MG PO DAILY, (Reported) Aspirin (Aspirin EC) 81 Mg Tabec, 81 MG PO DAILY, (Reported) Cholecalciferol (Vitamin D3) (Vitamin D3) 2,000 Unit Tab, 2,000 UNIT PO DAILY, (Reported) Escitalopram Oxalate (Escitalopram Oxalate) 20 Mg Tab, 20 MG PO DAILY, (Reported) Ferrous Sulfate (Ferrous Sulfate) 325 Mg Tab, 325 MG PO DAILY, (Reported) Fluticasone/Vilanterol (Breo Ellipta 200-25 Mcg INH) 1 Inh Inh, 1 PUFF INH DAILY, (Reported) Folic Acid (Folic Acid) 1 Mg Tab, 1 MG PO DAILY, (Reported) Lamotrigine (Lamotrigine) 150 Mg Tab, 150 MG PO DAILY, (Reported) Midodrine HCl (Midodrine HCl) 5 Mg Tab, 5 MG PO BID, (Reported) 0800/1600 Omeprazole (Omeprazole) 40 Mg Cap, 40 MG PO BID, (Reported) Prednisone (Prednisone) 5 Mg Tab.ds.pk, 0 PO ASDIRECTED 6 day dose pack taper Rivaroxaban (Xarelto) 10 Mg Tab, 10 MG PO DAILY, (Reported) Sennosides (Senna Lax) 8.6 Mg Tablet, 2 TAB PO QHS, (Reported) Simvastatin (Zocor) 20 Mg Tab, 20 MG PO QHS, (Reported) Spironolactone (Spironolactone) 25 Mg Tab, 25 MG PO BID, (Reported) 0800/1600 Torsemide (Torsemide) 20 Mg Tab, 20 MG PO DAILY, (Reported) Trazodone HCl (Trazodone HCl) 150 Mg Tab, 150 MG PO QHS, (Reported) Scheduled PRN Albuterol Sulfate (Ventolin Hfa) 108 Mcg/Act Aer, 2 PUFF INH Q4H PRN for SHORTNESS OF BREATH, (Reported) Ipratropium/Albuterol Sulfate (Iprat-Albut 0.5-3(2.5) mg/3 ml) 1 Juan Carlos Juan Carlos, 1 JUAN CARLOS INH Q4H PRN for SHORTNESS OF BREATH, (Reported) Nitroglycerin (Nitrostat) 0.4 Mg Subl, 0.4 MG SL NITRO PRN for CHEST PAIN, (Reported) Ondansetron HCl (Ondansetron HCl) 4 Mg Tab, 4 MG PO Q6H PRN for NAUSEA, (Reported) Oxycodone HCl/Acetaminophen (Percocet 5-325 mg Tablet) 1 Tab Tab, 1 TAB PO Q4H PRN for PAIN, (Reported) Allergies Coded Allergies: morphine (Verified Allergy, Severe, SOB, itching, rash, 09/23/18) Penicillins (Verified Allergy, Intermediate, Hives, 09/23/18) Quinolones (Verified Allergy, Intermediate, Hives, 09/23/18) Sulfa (Sulfonamide Antibiotics) (Verified Allergy, Intermediate, Hives, 09/23/18) cephalexin (Verified Allergy, Intermediate, Hives, 09/23/18) clavulanic acid (Verified Allergy, Intermediate, Hives, 09/23/18) erythromycin base (Verified Allergy, Intermediate, Hives, 09/23/18) moxifloxacin (Verified Allergy, Intermediate, Hives, 09/23/18) methylprednisolone (Verified Allergy, Mild, RASH WITH IV, 09/23/18) iodine (Verified Adverse Reaction, Intermediate, Acute renal insufficiency , 09/23/18) iopamidol (Verified Adverse Reaction, Intermediate, Acute renal insufficiency, 09/23/18) gabapentin (Verified Adverse Reaction, Mild, Upset stomach, 09/23/18) LISANDRO LANDAVERDE MD Sep 30, 2018 13:51
== END 2018-09-30 14:45 | disposition home health service (06) | DRG 140 ==
LOC: EDBD 10:57 → M ED 10:57 → M ED INP 15:16 → M MS5PR 17:38
PROVIDERS: ADMIT Family Medicine; ATTEND Student in an Organized Health Care Education/Training Program
DX: J44.1 Chronic obstructive pulmonary disease with (acute) exacerbation (principal); J96.11 Chronic respiratory failure with hypoxia; I27.20 Pulmonary hypertension, unspecified; I50.32 Chronic diastolic (congestive) heart failure; Z99.81 Dependence on supplemental oxygen; F41.9 Anxiety disorder, unspecified; F32.9 Major depressive disorder, single episode, unspecified; I25.10 Atherosclerotic heart disease of native coronary artery without angina pectoris; E78.5 Hyperlipidemia, unspecified; I95.1 Orthostatic hypotension; F39 Unspecified mood [affective] disorder; D50.9 Iron deficiency anemia, unspecified; M50.30 Other cervical disc degeneration, unspecified cervical region; Z79.82 Long term (current) use of aspirin; Z79.01 Long term (current) use of anticoagulants; Z79.899 Other long term (current) drug therapy; Z86.718 Personal history of other venous thrombosis and embolism; Z86.711 Personal history of pulmonary embolism; Z96.641 Presence of right artificial hip joint; Z87.891 Personal history of nicotine dependence; Z88.1 Allergy status to other antibiotic agents; Z88.5 Allergy status to narcotic agent; Z88.8 Allergy status to other drugs, medicaments and biological substances; Z88.2 Allergy status to sulfonamides; Z91.041 Radiographic dye allergy status; Z98.49 Cataract extraction status, unspecified eye

== ENCOUNTER 2018-10-07 19:54 | Inpatient (IN) | payer OTHER ==
[~2018-10-07] VITALS: Ht 162.6 cm; Wt 109.9 kg
[2018-10-07] MEDS: SIMVASTATIN 20 MG TAB PO SCH (00:24)
[2018-10-07] MEDS: ALPRAZolam 0.5 MG TAB PO SCH (00:24)
[2018-10-07] MEDS: SENNA 8.6 MG TAB (SENOKOT) PO SCH (00:24)
[~2018-10-07 19:54] MED LIST changes: +PRED5PAK PO; +SB S8.6T PO; +TORS5TAB2 PO
[2018-10-07] MEDS ORDERED: ALBUTEROL SULFATE 2.5 MG/0.5 ML INH NEB SOLN INH ONE (20:15)
[2018-10-07] MEDS ORDERED: IPRATROPIUM 0.5MG/ALBUTEROL 2.5MG INH SOL UD 3ML (DUONEB)(J7620) NEB ONE (20:15)
[2018-10-07 20:51] LABS: VENOUS BASE EXCESS 1.8 (-2.0-2.0); VENOUS O2 SATURATION 91.1 % (60.0-80.0); VENOUS PARTIAL PRESSURE CO2 50.2 mmHg (38.0-50.0); VENOUS PARTIAL PRESSURE O2 60.8 mmHg (30.0-50.0); VENOUS PH 7.364 UNITS (7.330-7.430); VENOUS STANDARD HCO3 25.9 MEQ/L; VENOUS TOTAL CO2 29.5 MEQ/L (24.0-28.0)
[2018-10-07 20:54] LABS: BASO # 0.1 10^3/uL (0.0-0.2); BASO % 0.3 % (0.0-1.0); EOS # 0.2 10^3/uL (0.0-0.50); EOS % 1.5 % (0.0-3.0); HEMATOCRIT 41.6 % (36.0-47.0); HEMOGLOBIN 12.5 g/dl (12.0-15.5); LYMPH # 2.7 10^3/uL (1.5-4.5); LYMPH % 18.1 % (24.0-44.0); MEAN CORPUSCULAR HEMOGLOBIN 27.8 pg (27.0-33.0); MEAN CORPUSCULAR VOLUME 92.7 fl (80.0-96.0); MONO % 6.9 % (0.0-5.0); NEUTROPHILS # 10.8 10^3/uL (1.8-7.7); NEUTROPHILS % 71.9 % (36.0-66.0); PLATELET COUNT, AUTOMATED 239 10^3/uL (150-450); RED BLOOD COUNT 4.49 10^6/uL (4.00-5.40)
[2018-10-07 21:24] LABS: ALBUMIN 3.3 GM/DL (3.2-5.2); ALT/SGPT 37 U/L (12-78); BILIRUBIN,DIRECT < 0.1 MG/DL (0.0-0.2); BILIRUBIN,TOTAL 0.2 MG/DL (0.2-1.0); BLOOD UREA NITROGEN 23 MG/DL (7-18); CALCIUM LEVEL 8.4 MG/DL (8.8-10.2); CARBON DIOXIDE LEVEL 35 MEQ/L (21-32); CHLORIDE LEVEL 101 MEQ/L (98-107); CPK CREATINE PHOSPHOKINASE 29 U/L (26-192); CREATININE FOR GFR 1.01 MG/DL (0.55-1.30); GLOMERULAR FILTRATION RATE 59.5 (>45); GLUCOSE, FASTING 122 MG/DL (70-100); MB/CK RELATIVE INDEX 6.55 (< OR =4); NT-PRO BNP 118 PG/ML (<125); POTASSIUM SERUM 4.5 MEQ/L (3.5-5.1); SODIUM LEVEL 139 MEQ/L (136-145); TOTAL PROTEIN 6.4 GM/DL (6.4-8.2); TROPONIN I < 0.02 NG/ML (< 0.10)
[2018-10-07] MEDS ORDERED: PERCOCET 5MG/325MG TAB PO ONE (21:30)
[2018-10-07 21:35] LABS: INFLUENZA A AMPLIFICATION NEGATIVE (NEGATIVE); INFLUENZA B AMPLIFICATION NEGATIVE (NEGATIVE)
[2018-10-07] MEDS ORDERED: FUROSEMIDE 40 MG/4 ML VIAL (J1940) IV ONE (21:45)
[2018-10-07] MEDS ORDERED: ACETAMINOPHEN TAB 650MG DOSE (2X325MG) PO PRN (22:45)
[2018-10-07] MEDS ORDERED: NITROGLYCERIN 0.4 MG SUBL TABLET SL PRN (22:45)
--- NOTE | 2018-10-07 23:10 | HPEPDOC ---
General Date of Admission Oct 07, 2018 at 22:42 Chief Complaint The patient is a 58-year-old female admitted with a reason for visit of [facility], Acute On Chronic. History of Present Illness 58-year-old female with past medical history of chronic obstructive pulmonary disease on 2 L of oxygen at baseline, DVT and PE, iron deficiency anemia, hypertension, GERD, anxiety, and diastolic congestive heart failure presented to the ER with a chief complaint of increased shortness of breath. Of note, the patient was recently admitted here for a COPD exacerbation and discharged 1 week ago. At this time, the patient returns because she states that she has gained 12 pounds since her discharge. She reports that she has been eating sandwiches and chips daily since discharge. She has noticed increased swelling in her lower extremities and the lower abdominal area. She denies any complaints of fevers, chills, chest pain, palpitations, abdominal pain, or any nausea/vomiting/diarrhea. In the ER, the patient was noted to be in decompensated congestive heart failure. She will be admitted to the hospitalist service for further evaluation and management. Home Medications Scheduled Alprazolam (Alprazolam) 1 Mg Tab, 1 MG PO BID, (Reported) Aspirin (Aspirin EC) 81 Mg Tabec, 81 MG PO DAILY, (Reported) Cholecalciferol (Vitamin D3) (Vitamin D3) 2,000 Unit Tab, 2,000 UNIT PO DAILY, (Reported) Escitalopram Oxalate (Escitalopram Oxalate) 20 Mg Tab, 30 MG PO DAILY, (Reported) Ferrous Sulfate (Ferrous Sulfate) 325 Mg Tab, 325 MG PO DAILY, (Reported) Fluticasone/Vilanterol (Breo Ellipta 200-25 Mcg INH) 1 Inh Inh, 1 PUFF INH DAILY, (Reported) Folic Acid (Folic Acid) 1 Mg Tab, 1 MG PO DAILY, (Reported) Lamotrigine (Lamotrigine) 150 Mg Tab, 150 MG PO DAILY, (Reported) Midodrine HCl (Midodrine HCl) 5 Mg Tab, 5 MG PO BID, (Reported) 0800/1600 Omeprazole (Omeprazole) 40 Mg Cap, 40 MG PO BID, (Reported) Rivaroxaban (Xarelto) 10 Mg Tab, 10 MG PO DAILY, (Reported) Sennosides (Senna Lax) 8.6 Mg Tablet, 2 TAB PO QHS, (Reported) Simvastatin (Zocor) 20 Mg Tab, 20 MG PO QHS, (Reported) Spironolactone (Spironolactone) 25 Mg Tab, 25 MG PO BID, (Reported) 0800/1600 Torsemide (Torsemide) 20 Mg Tab, 20 MG PO DAILY, (Reported) Trazodone HCl (Trazodone HCl) 150 Mg Tab, 150 MG PO QHS, (Reported) Scheduled PRN Albuterol Sulfate (Ventolin Hfa) 108 Mcg/Act Aer, 2 PUFF INH Q4H PRN for SHORTNESS OF BREATH, (Reported) Ipratropium/Albuterol Sulfate (Iprat-Albut 0.5-3(2.5) mg/3 ml) 1 Juan Carlos Juan Carlos, 1 JUAN CARLOS INH Q4H PRN for SHORTNESS OF BREATH, (Reported) Nitroglycerin (Nitrostat) 0.4 Mg Subl, 0.4 MG SL NITRO PRN for CHEST PAIN, (Reported) Ondansetron HCl (Ondansetron HCl) 4 Mg Tab, 4 MG PO Q6H PRN for NAUSEA, (Reported) Oxycodone HCl/Acetaminophen (Percocet 5-325 mg Tablet) 1 Tab Tab, 1 TAB PO Q4H PRN for PAIN, (Reported) Allergies Coded Allergies: morphine (Verified Allergy, Severe, SOB, itching, rash, 09/23/18) Penicillins (Verified Allergy, Intermediate, Hives, 09/23/18) Quinolones (Verified Allergy, Intermediate, Hives, 09/23/18) Sulfa (Sulfonamide Antibiotics) (Verified Allergy, Intermediate, Hives, 09/23/18) cephalexin (Verified Allergy, Intermediate, Hives, 09/23/18) clavulanic acid (Verified Allergy, Intermediate, Hives, 09/23/18) erythromycin base (Verified Allergy, Intermediate, Hives, 09/23/18) moxifloxacin (Verified Allergy, Intermediate, Hives, 09/23/18) methylprednisolone (Verified Allergy, Mild, RASH WITH IV, 09/23/18) iodine (Verified Adverse Reaction, Intermediate, Acute renal insufficiency , 09/23/18) iopamidol (Verified Adverse Reaction, Intermediate, Acute renal insufficiency, 09/23/18) gabapentin (Verified Adverse Reaction, Mild, Upset stomach, 09/23/18) Past Medical History Medical History As noted in HPI Surgical History 1. Leg surgeries. 2. Right hip replacement. 3. Hysterectomy. 4. Bladder tuck. 5. Cataract surgery. Social History * Smoker: former Smoker (Smoked 1-2 PPD for 40 yrs, quit in 2010) Alcohol: Denies Drugs: denies Review of Systems Other systems 10 point ROS negative unless otherwise specified in the HPI Physical Examination General Exam: Positive: Alert, Cooperative, Mild Distress (2/2 underlying anxiety) ENT Exam: Positive: Atraumatic, Mucous membr. moist/pink Chest Exam: Positive: Rales (faint bibasilar crackles at the bases on auscultation bilaterally), Diminished Heart Exam: Positive: Rate Normal, Normal S1, Normal S2 Abdomen Exam: Positive: Soft; Negative: Tenderness Extremity Exam: Positive: Swelling (2+ pitting edema in the lower extremities bilaterally); Negative: Tenderness Psych Exam: Positive: Oriented x 3 Vital Signs Vital Signs Date Time Temp Pulse Resp B/P (MAP) Pulse Ox O2 Delivery O2 Flow Rate FiO2 10/07/18 22:54 98 116/77 (90) 10/07/18 21:55 26 10/07/18 21:45 98 Nasal Cannula 2.0 10/07/18 20:13 97.9 Laboratory Data Labs 24H Laboratory Tests 2 10/07/18 20:40: Blood Gas Bicarbonate Standard 25.9, Venous Blood pH 7.364, Venous Blood Partial Pressure CO2 50.2H, Venous Blood Partial Pressure O2 60.8H, Venous Blood Total Carbon Dioxide 29.5H, Venous Blood HCO3 28.0H, Venous Blood Oxygen Saturation 91.1H, Venous Blood Base Excess 1.8, Anion Gap 3L, Glomerular Filtration Rate 59.5, Calcium Level 8.4L, Aspartate Amino Transf (AST/SGOT) 20, Alanine Aminotransferase (ALT/SGPT) 37, Alkaline Phosphatase 73, Total Bilirubin 0.2, Direct Bilirubin < 0.1, Total Creatine Kinase 29, Creatine Kinase MB 2.0, Creatine Kinase MB Relative Index 6.55H, Troponin I < 0.02, YS-Tvo-D-Type Natriuretic Peptide 118, Total Protein 6.4, Albumin 3.3, Albumin/Globulin Ratio 1.06, Influenza Type A (RT-PCR) NEGATIVE, Influenza Type B (RT-PCR) NEGATIVE 10/07/18 20:41: Immature Granulocyte % (Auto) 1.3, White Blood Count 15.0H, Red Blood Count 4.49, Hemoglobin 12.5, Hematocrit 41.6, Mean Corpuscular Volume 92.7, Mean Corpuscular Hemoglobin 27.8, Mean Corpuscular Hemoglobin Concent 30.0L, Red Cell Distribution Width 15.4H, Platelet Count 239, Neutrophils (%) (Auto) 71.9H, Lymphocytes (%) (Auto) 18.1L, Monocytes (%) (Auto) 6.9H, Eosinophils (%) (Auto) 1.5, Basophils (%) (Auto) 0.3, Neutrophils # (Auto) 10.8H, Lymphocytes # (Auto) 2.7, Monocytes # (Auto) 1.0H, Eosinophils # (Auto) 0.2, Basophils # (Auto) 0.1, Nucleated Red Blood Cells % (auto) 0.0 CBC/BMP Laboratory Tests 10/07/18 20:40 10/07/18 20:41 Red Blood Count 4.49, Mean Corpuscular Volume 92.7, Mean Corpuscular Hemoglobin 27.8, Mean Corpuscular Hemoglobin Concent 30.0 L, Red Cell Distribution Width 15.4 H, Neutrophils (%) (Auto) 71.9 H, Lymphocytes (%) (Auto) 18.1 L, Monocytes (%) (Auto) 6.9 H, Eosinophils (%) (Auto) 1.5, Basophils (%) (Auto) 0.3, Neutrophils # (Auto) 10.8 H, Lymphocytes # (Auto) 2.7, Monocytes # (Auto) 1.0 H, Eosinophils # (Auto) 0.2, Basophils # (Auto) 0.1 Microbiology Microbiology 10/07/18 Blood Culture, Received Pending 10/07/18 Blood Culture, Received Pending Plan / VTE VTE Prophylaxis Ordered?: Yes Plan Plan Decompensated Diastolic CHF 2/2 Dietary Indiscretion Patient with 12lb weight gain since last admission, with clinical findings of fluid overload IV Lasix ordered Daily Weights Monitor I/O's Fluid Restriction We will cont to monitor the patient's respiratory/volume status Hx of COPD, stable Cont therapy as ordered Hx of Bilateral DVT, 2014 Cont full anticoagulation with Xarelto Pulmonary hypertension Depression / Anxiety Cont Xanax, trazodone, and lamotrigine Dyslipidemia Cont Statin GERD Cont Omeprazole DVT prophylaxis On Xarelto LARISSA ELLIOTTT MD Oct 07, 2018 23:10
[2018-10-07] MEDS ORDERED: PILL CRUSHER/CUTTER 1 EACH XX PRN (23:15)
[2018-10-08] MEDS ORDERED: traZODone 50 MG TAB As Ordered ONE (00:38)
[2018-10-08] MEDS ORDERED: traZODone 100 MG TAB As Ordered ONE (00:38)
[2018-10-08] MEDS: traZODone 50 MG TAB PO SCH ×2 (00:42→21:47)
--- NOTE | 2018-10-08 01:43 | ECGEPIP ---
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
[2018-10-08] MEDS: PERCOCET 5MG/325MG TAB PO PRN ×5 (02:35→19:44)
[2018-10-08] MEDS: IPRATROPIUM 0.5MG/ALBUTEROL 2.5MG INH SOL UD 3ML (DUONEB)(J7620) NEB SCH ×4 (02:35→19:53)
[2018-10-08] MEDS: FUROSEMIDE 40 MG/4 ML VIAL (J1940) IV SCH ×3 (06:00→21:47)
[2018-10-08 07:12] LABS: HEMOGLOBIN 13.3 g/dl (12.0-15.5); MEAN CORPUSCULAR HEMOGLOBIN 27.9 pg (27.0-33.0); MEAN CORPUSCULAR HGB CONC 30.2 g/dl (32.0-36.5); MEAN CORPUSCULAR VOLUME 92.4 fl (80.0-96.0); PLATELET COUNT, AUTOMATED 248 10^3/uL (150-450); RED BLOOD COUNT 4.76 10^6/uL (4.00-5.40); WHITE BLOOD COUNT 12.7 10^3/uL (4.0-10.0)
[2018-10-08 07:57] LABS: ALBUMIN 3.5 GM/DL (3.2-5.2); BILIRUBIN,TOTAL 0.4 MG/DL (0.2-1.0); CALCIUM LEVEL 8.7 MG/DL (8.8-10.2); CREATININE FOR GFR 1.11 MG/DL (0.55-1.30); GLOMERULAR FILTRATION RATE 53.4 (>45); MAGNESIUM LEVEL 2.2 MG/DL (1.8-2.4); POTASSIUM SERUM 3.4 MEQ/L (3.5-5.1); TOTAL PROTEIN 6.8 GM/DL (6.4-8.2)
[2018-10-08] MEDS: MIDODRINE 5 MG TAB PO SCH ×2 (08:11→15:32)
[2018-10-08] MEDS: FERROUS SULFATE 325MG TAB PO SCH (08:11)
[2018-10-08] MEDS: ASPIRIN 81 MG ENTERIC TAB PO SCH (08:11)
[2018-10-08] MEDS: FOLIC ACID 1 MG TAB PO SCH (08:11)
[2018-10-08] MEDS: RIVAROXABAN 10 MG TAB (XARELTO) PO SCH (08:12)
[2018-10-08] MEDS: ESCITALOPRAM OXALATE 10 MG TAB (LEXAPRO) PO SCH (08:12)
[2018-10-08] MEDS: OMEPRAZOLE 20 MG CAP PO SCH ×2 (08:12→21:46)
[2018-10-08] MEDS: ALPRAZolam 0.5 MG TAB PO SCH ×2 (08:12→21:47)
[2018-10-08] MEDS: lamoTRIgine 100MG TAB PO SCH (08:12)
[2018-10-08 08:20] VITALS: BP 129/93
--- NOTE | 2018-10-08 08:57 | REP ---
Portable chest x-ray: Single view. History: Dyspnea and cough. Comparison study: September 23, 2018. Findings: EKG monitoring electrodes overlie the chest. There is a dextroconvex thoracic curvature again noted essentially unchanged. Lungs are well inflated and clear. Pleural angles are sharp. Heart size is normal. Pulmonary vasculature is not increased. Impression: No acute disease. Electronically Signed by Braden Garrett MD 10/08/2018 08:49 A
[2018-10-08] MEDS: ADVAIR HFA 230/21MCG INHALER INH SCH ×2 (09:19→21:00)
[2018-10-08] MEDS ORDERED: POTASSIUM CHLORIDE 10 MEQ SR TABLET PO ONE (11:00)
[2018-10-08] MEDS ORDERED: MAGNESIUM OXIDE 400 MG TAB (MAG-OX) PO ONE (11:00)
[2018-10-08 14:00] VITALS: BP 132/96
[2018-10-08 14:35] VITALS: BP 154/94
--- NOTE | 2018-10-08 19:50 | IPNPDOC ---
Date Seen The patient was seen on 10/08/18. Progress Note SUBJECTIVE: Patient is feeling slightly better and improved breathing but has not urinated much with diuresis. Informed patient that she may require Atkins as needed. Patient seems to be understanding and will continue to monitor and treated for CHF exacerbation. That positive balance of 300 mL but her weight has gone down from 114 down to 101 kg today. OBJECTIVE PHYSICAL EXAMINATION: VITAL SIGNS: Please see below. General Exam: Alert, Cooperative ENT Exam: Atraumatic, Mucous membr. moist/pink Chest Exam: Rales (faint bibasilar crackles at the bases on auscultation bilaterally), Diminished Heart Exam: Rate Normal, Normal S1, Normal S2 Abdomen Exam: Soft; not Tenderness Extremity Exam: Swelling (2+ pitting edema in the lower extremities bilaterally); Psych Exam: Positive: Oriented x 3 LABORATORY DATA, IMAGING STUDIES, MICROBIOLOGY: Please see below. Echocardiogram: . 58-year-old female with past medical history of chronic obstructive pulmonary disease on 2 L of oxygen at baseline, DVT and PE, iron deficiency anemia, hypertension, GERD, anxiety, and diastolic congestive heart failure presented to the ER with a chief complaint of increased shortness of breath. Of note, the patient was recently admitted here for a COPD exacerbation and discharged 1 week ago. At this time, the patient returns because she states that she has gained 12 pounds since her discharge. She reports that she has been eating sandwiches and chips daily since discharge. She has noticed increased swelling in her lower extremities and the lower abdominal area. She denies any complaints of fevers, chills, chest pain, palpitations, abdominal pain, or any nausea/vomiting/diarrhea. In the ER, the patient was noted to be in decompensated congestive heart failure. She will be admitted to the hospitalist service for further evaluation and management. Assessment and plan: Decompensated Diastolic CHF 2/2 Dietary Indiscretion Patient with 12lb weight gain since last admission, with clinical findings of fluid overload IV Lasix ordered Daily Weights Monitor I/O's Fluid Restriction Atkins PRN We will cont to monitor the patient's respiratory/volume status Influenza A and B-, blood culture 2 pending, sputum cultures are pending collection CXR:No acute disease. Electrolyte abnormality, mild hypokalemia Replace and monitor Hx of COPD, stable Cont therapy as ordered Hx of Bilateral DVT, 2014 Cont full anticoagulation with Xarelto Pulmonary hypertension Depression / Anxiety Cont Xanax, trazodone, and lamotrigine Dyslipidemia Cont Statin GERD Cont Omeprazole DVT prophylaxis On Xarelto DISPOSITION: [Within the next 24-48 hours if weight continues to decrease and patient diuresis negative balance]. VS, I&O, 24H, Fishbone Vital Signs/I&O Vital Signs Date Time Temp Pulse Resp B/P (MAP) Pulse Ox O2 Delivery O2 Flow Rate FiO2 10/08/18 16:03 20 2.0 10/08/18 14:35 98.6 121 154/94 (114) 93 10/08/18 06:00 Nasal Cannula Laboratory Data 24H LABS Laboratory Tests 2 10/07/18 20:40: Blood Gas Bicarbonate Standard 25.9, Venous Blood pH 7.364, Venous Blood Partial Pressure CO2 50.2H, Venous Blood Partial Pressure O2 60.8H, Venous Blood Total Carbon Dioxide 29.5H, Venous Blood HCO3 28.0H, Venous Blood Oxygen Saturation 91.1H, Venous Blood Base Excess 1.8, Anion Gap 3L, Glomerular Filtration Rate 59.5, Calcium Level 8.4L, Aspartate Amino Transf (AST/SGOT) 20, Alanine Aminotransferase (ALT/SGPT) 37, Alkaline Phosphatase 73, Total Bilirubin 0.2, D irect Bilirubin < 0.1, Total Creatine Kinase 29, Creatine Kinase MB 2.0, Creatine Kinase MB Relative Index 6.55H, Troponin I < 0.02, BI-Rzo-M-Type Natriuretic Peptide 118, Total Protein 6.4, Albumin 3.3, Albumin/Globulin Ratio 1.06, Influenza Type A (RT-PCR) NEGATIVE, Influenza Type B (RT-PCR) NEGATIVE 10/07/18 20:41: Immature Granulocyte % (Auto) 1.3, White Blood Count 15.0H, Red Blood Count 4.49, Hemoglobin 12.5, Hematocrit 41.6, Mean Corpuscular Volume 92.7, Mean Corpuscular Hemoglobin 27.8, Mean Corpuscular Hemoglobin Concent 30.0L, Red Cell Distribution Width 15.4H, Platelet Count 239, Neutrophils (%) (Auto) 71.9H, Lymphocytes (%) (Auto) 18.1L, Monocytes (%) (Auto) 6.9H, Eosinophils (%) (Auto) 1.5, Basophils (%) (Auto) 0.3, Neutrophils # (Auto) 10.8H, Lymphocytes # (Auto) 2.7, Monocytes # (Auto) 1.0H, Eosinophils # (Auto) 0.2, Basophils # (Auto) 0.1, Nucleated Red Blood Cells % (auto) 0.0 10/08/18 06:43: Anion Gap 8, Glomerular Filtration Rate 53.4, Calcium Level 8.7L, Aspartate Amino Transf (AST/SGOT) 20, Alanine Aminotransferase (ALT/SGPT) 39, Alkaline Phosphatase 81, Total Bilirubin 0.4#, Total Protein 6.8, Albumin 3.5, Albumin/Globulin Ratio 1.06, Nucleated Red Blood Cells % (auto) 0.0, Blood Urea Nitrogen 21H, Creatinine 1.11, Sodium Level 138, Potassium Level 3.4#L, Chloride Level 97L, Carbon Dioxide Level 33H, Magnesium Level 2.2 CBC/BMP Laboratory Tests 10/07/18 20:40 10/07/18 20:41 Red Blood Count 4.49, Mean Corpuscular Volume 92.7, Mean Corpuscular Hemoglobin 27.8, Mean Corpuscular Hemoglobin Concent 30.0 L, Red Cell Distribution Width 15.4 H, Neutrophils (%) (Auto) 71.9 H, Lymphocytes (%) (Auto) 18.1 L, Monocytes (%) (Auto) 6.9 H, Eosinophils (%) (Auto) 1.5, Basophils (%) (Auto) 0.3, Neutro phils # (Auto) 10.8 H, Lymphocytes # (Auto) 2.7, Monocytes # (Auto) 1.0 H, Eosinophils # (Auto) 0.2, Basophils # (Auto) 0.1 10/08/18 06:43 Red Blood Count 4.76, Mean Corpuscular Volume 92.4, Mean Corpuscular Hemoglobin 27.9, Mean Corpuscular Hemoglobin Concent 30.2 L, Red Cell Distribution Width 15.4 H, Calcium Level 8.7 L, Aspartate Amino Transf (AST/SGOT) 20, Alanine Amino transferase (ALT/SGPT) 39, Alkaline Phosphatase 81, Total Bilirubin 0.4 #, Total Protein 6.8, Albumin 3.5 Microbiology Microbiology 10/07/18 Blood Culture, Received Pending 10/07/18 Blood Culture, Received Pending YUMIKO GIRON MD Oct 08, 2018 19:50
[2018-10-08] MEDS ORDERED: traZODone 50 MG TAB PO SCH (21:00)
[2018-10-08] MEDS: SIMVASTATIN 20 MG TAB PO SCH (21:46)
[2018-10-08] MEDS: SENNA 8.6 MG TAB (SENOKOT) PO SCH (21:46)
[2018-10-08 22:00] VITALS: BP 136/92
[2018-10-09] MEDS: IPRATROPIUM 0.5MG/ALBUTEROL 2.5MG INH SOL UD 3ML (DUONEB)(J7620) NEB PRN ×2 (00:02→04:04)
[2018-10-09] MEDS: IPRATROPIUM 0.5MG/ALBUTEROL 2.5MG INH SOL UD 3ML (DUONEB)(J7620) NEB SCH ×4 (00:09→21:43)
[2018-10-09] MEDS: PERCOCET 5MG/325MG TAB PO PRN ×6 (00:20→23:53)
[2018-10-09] MEDS: FUROSEMIDE 40 MG/4 ML VIAL (J1940) IV SCH ×3 (05:30→22:15)
[2018-10-09 06:00] VITALS: BP 167/83
[2018-10-09 06:06] LABS: HEMATOCRIT 42.7 % (36.0-47.0); MEAN CORPUSCULAR HEMOGLOBIN 27.8 pg (27.0-33.0); MEAN CORPUSCULAR HGB CONC 30.4 g/dl (32.0-36.5); MEAN CORPUSCULAR VOLUME 91.4 fl (80.0-96.0); PLATELET COUNT, AUTOMATED 243 10^3/uL (150-450); RED BLOOD COUNT 4.67 10^6/uL (4.00-5.40); WHITE BLOOD COUNT 11.4 10^3/uL (4.0-10.0)
[2018-10-09 06:22] LABS: CALCIUM LEVEL 8.9 MG/DL (8.8-10.2); CREATININE FOR GFR 1.25 MG/DL (0.55-1.30); GLOMERULAR FILTRATION RATE 46.5 (>45); POTASSIUM SERUM 3.5 MEQ/L (3.5-5.1)
[2018-10-09] MEDS: OMEPRAZOLE 20 MG CAP PO SCH ×2 (08:48→22:13)
[2018-10-09] MEDS: MIDODRINE 5 MG TAB PO SCH ×2 (08:48→14:53)
[2018-10-09] MEDS: FOLIC ACID 1 MG TAB PO SCH (08:51)
[2018-10-09] MEDS: ALPRAZolam 0.5 MG TAB PO SCH ×2 (08:51→20:25)
[2018-10-09] MEDS: lamoTRIgine 100MG TAB PO SCH (08:51)
[2018-10-09] MEDS: ASPIRIN 81 MG ENTERIC TAB PO SCH (08:51)
[2018-10-09] MEDS: FERROUS SULFATE 325MG TAB PO SCH (08:51)
[2018-10-09] MEDS: ESCITALOPRAM OXALATE 10 MG TAB (LEXAPRO) PO SCH (08:52)
[2018-10-09] MEDS: RIVAROXABAN 10 MG TAB (XARELTO) PO SCH (08:52)
[2018-10-09] MEDS: ADVAIR HFA 230/21MCG INHALER INH SCH ×2 (09:00→21:00)
[2018-10-09 14:00] VITALS: BP 131/90
--- NOTE | 2018-10-09 18:30 | IPNPDOC ---
Date Seen The patient was seen on 10/09/18. Progress Note SUBJECTIVE: Patient feeling pretty much the same today. She had not negative urine output of -350. Patient still feels as if she is fluid overloaded. She is currently on her baseline 2 L nasal cannula and is not of shortness of breath. Patient able to communicate and speak and converse with her the minutes without shortness of breath. We'll continue current management and continue to evaluate and monitor. Patient complained of muscle spasm, monitor and replace electrolytes. Calcium within normal and potassium normalized. Patient well-known to medical staffs for similar admissions in the past. OBJECTIVE PHYSICAL EXAMINATION: VITAL SIGNS: Please see below. General Exam: Alert, Cooperative ENT Exam: Atraumatic, Mucous membr. moist/pink Chest Exam: Rales (faint bibasilar crackles at the bases on auscultation bilaterally including), Diminished Heart Exam: Rate Normal, Normal S1, Normal S2 Abdomen Exam: Soft; not Tenderness Extremity Exam: Swelling (2+ pitting edema in the lower extremities bilaterally); Psych Exam: Positive: Oriented x 3 LABORATORY DATA, IMAGING STUDIES, MICROBIOLOGY: Please see below. 58-year-old female with past medical history of chronic obstructive pulmonary disease on 2 L of oxygen at baseline, DVT and PE, iron deficiency anemia, hypertension, GERD, anxiety, and diastolic congestive heart failure presented to the ER with a chief complaint of increased shortness of breath. Of note, the patient was recently admitted here for a COPD exacerbation and discharged 1 week ago. At this time, the patient returns because she states that she has gained 12 pounds since her discharge. She reports that she has been eating sandwiches and chips daily since discharge. She has noticed increased swelling in her lower extremities and the lower abdominal area. She denies any complaints of fevers, chills, chest pain, palpitations, abdominal pain, or any n ausea/vomiting/diarrhea. In the ER, the patient was noted to be in decompensated congestive heart f ailure. She will be admitted to the hospitalist service for further evaluation and management. Assessment and plan: Decompensated Diastolic CHF 2/2 Dietary Indiscretion Patient with 12lb weight gain since last admission, with clinical findings of fluid overload IV Lasix ordered Daily Weights Monitor I/O's Fluid Restriction Atkins PRN We will cont to monitor the patient's respiratory/volume status Influenza A and B- blood culture 2 today, sputum cultures are pending collection CXR:No acute disease. Electrolyte abnormality, mild hypokalemia-resolved Replace and monitor Hx of COPD, stable Cont therapy as ordered Hx of Bilateral DVT, 2014 Cont full anticoagulation with Xarelto Pulmonary hypertension Depression / Anxiety Cont Xanax, trazodone, and lamotrigine Dyslipidemia Cont Statin GERD Cont Omeprazole DVT prophylaxis On Xarelto DISPOSITION: [When stable for discharge]. VS, I&O, 24H, Fishbone Vital Signs/I&O Vital Signs Date Time Temp Pulse Resp B/P (MAP) Pulse Ox O2 Delivery O2 Flow Rate FiO2 10/09/18 14:47 20 2.0 10/09/18 14:00 98.4 115 131/90 (104) 95 10/08/18 06:00 Nasal Cannula I&O- Last 24 Hours up to 6 AM 10/09/18 06:00 Intake Total 1780 ml Output Total 1725 ml Balance 55 ml Laboratory Data 24H LABS Laboratory Tests 2 10/09/18 05:40: Nucleated Red Blood Cells % (auto) 0.0, Anion Gap 7L, Glomerular Filtration Rate 46.5, Blood Urea Nitrogen 30H, Creatinine 1.25, Sodium Level 138, Potassium Level 3.5, Chloride Level 96L, Carbon Dioxide Level 35H, Calcium Level 8.9 CBC/BMP Laboratory Tests 10/09/18 05:40 Red Blood Count 4.67, Mean Corpuscular Volume 91.4, Mean Corpuscular Hemoglobin 27.8, Mean Corpuscular Hemoglobin Concent 30.4 L, Red Cell Distribution Width 15 .6 H, Calcium Level 8.9 Microbiology Microbiology 10/07/18 Blood Culture - Preliminary, Resulted No growth after 24 hours . All specim... 10/07/18 Blood Culture - Preliminary, Resulted No growth after 24 hours . All specim... YUMIKO GIRON MD Oct 09, 2018 18:30
[2018-10-09 22:00] VITALS: BP 133/90
[2018-10-09] MEDS: SIMVASTATIN 20 MG TAB PO SCH (22:13)
[2018-10-09] MEDS: SENNA 8.6 MG TAB (SENOKOT) PO SCH (22:13)
[2018-10-09] MEDS: traZODone 50 MG TAB PO SCH (22:13)
[2018-10-10] MEDS: IPRATROPIUM 0.5MG/ALBUTEROL 2.5MG INH SOL UD 3ML (DUONEB)(J7620) NEB SCH ×4 (02:18→20:00)
[2018-10-10] MEDS: PERCOCET 5MG/325MG TAB PO PRN ×5 (04:21→22:16)
[2018-10-10] MEDS: FUROSEMIDE 40 MG/4 ML VIAL (J1940) IV SCH ×3 (05:30→21:50)
[2018-10-10 06:00] VITALS: BP 135/97
[2018-10-10 06:24] LABS: HEMATOCRIT 41.7 % (36.0-47.0); HEMOGLOBIN 13.1 g/dl (12.0-15.5); MEAN CORPUSCULAR HEMOGLOBIN 28.2 pg (27.0-33.0); MEAN CORPUSCULAR HGB CONC 31.4 g/dl (32.0-36.5); MEAN CORPUSCULAR VOLUME 89.7 fl (80.0-96.0); PLATELET COUNT, AUTOMATED 238 10^3/uL (150-450); RED BLOOD COUNT 4.65 10^6/uL (4.00-5.40); WHITE BLOOD COUNT 10.5 10^3/uL (4.0-10.0)
[2018-10-10 06:49] LABS: CALCIUM LEVEL 9.1 MG/DL (8.8-10.2); CREATININE FOR GFR 1.15 MG/DL (0.55-1.30); GLOMERULAR FILTRATION RATE 51.2 (>45); POTASSIUM SERUM 3.5 MEQ/L (3.5-5.1)
[2018-10-10] MEDS: ADVAIR HFA 230/21MCG INHALER INH SCH ×2 (08:06→21:51)
[2018-10-10] MEDS: RIVAROXABAN 10 MG TAB (XARELTO) PO SCH (08:37)
[2018-10-10] MEDS: FERROUS SULFATE 325MG TAB PO SCH (08:37)
[2018-10-10] MEDS: ASPIRIN 81 MG ENTERIC TAB PO SCH (08:37)
[2018-10-10] MEDS: ESCITALOPRAM OXALATE 10 MG TAB (LEXAPRO) PO SCH (08:38)
[2018-10-10] MEDS: lamoTRIgine 100MG TAB PO SCH (08:38)
[2018-10-10] MEDS: OMEPRAZOLE 20 MG CAP PO SCH ×2 (08:39→21:48)
[2018-10-10] MEDS: FOLIC ACID 1 MG TAB PO SCH (08:39)
[2018-10-10] MEDS: MIDODRINE 5 MG TAB PO SCH ×2 (08:39→14:39)
[2018-10-10] MEDS: ALPRAZolam 0.5 MG TAB PO SCH ×2 (08:39→21:48)
[2018-10-10] MEDS: IPRATROPIUM 0.5MG/ALBUTEROL 2.5MG INH SOL UD 3ML (DUONEB)(J7620) NEB PRN (11:17)
--- NOTE | 2018-10-10 12:09 | IPNPDOC ---
Date Seen The patient was seen on 10/10/18. Progress Note SUBJECTIVE: Patient had good urine output yesterday total -720 and today -460. Patient states that she still has fluid in her system. She still requiring oxygen but at her home level. If patient continues to have good urine output as suspect the patient will most likely be able to be discharged this week. Patient states that most likely by Sunday she'll be tuned up. OBJECTIVE PHYSICAL EXAMINATION: VITAL SIGNS: Please see below. General Exam: Alert, Cooperative ENT Exam: Atraumatic, Mucous membr. moist/pink Chest Exam: Rales (faint bibasilar crackles at the bases on auscultation bila terally including), Diminished Heart Exam: Rate Normal, Normal S1, Normal S2 Abdomen Exam: Soft; not Tenderness Extremity Exam: Swelling (2+ pitting edema in the lower extremities bilaterally); Psych Exam: Positive: Oriented x 3 LABORATORY DATA, IMAGING STUDIES, MICROBIOLOGY: Please see below. 58-year-old female with past medical history of chronic obstructive pulmonary disease on 2 L of oxygen at baseline, DVT and PE, iron deficiency anemia, hypertension, GERD, anxiety, and diastolic congestive heart failure presented to the ER with a chief complaint of increased shortness of breath. Of note, the patient was recently admitted here for a COPD exacerbation and discharged 1 week ago. At this time, the patient returns because she states that she has gained 12 pounds since her discharge. She reports that she has been eating sandwiches and chips daily since discharge. She has noticed increased swelling in her lower extremities and the lower abdominal area. She denies any complaints of fevers, chills, chest pain, palpitations, abdominal pain, or any nausea/vomiting/diarrhea. In the ER, the patient was noted to be in decompensated congestive heart failure. She will be admitted to the hospitalist service for further evaluation and management. Assessment and plan: Decompensated Diastolic CHF 2/2 Dietary Indiscretion Patient with 12lb weight gain since last admission, with clinical findings of fluid overload IV Lasix ordered Daily Weights Monitor I/O's Fluid Restriction Atkins PRN We will cont to monitor the patient's respiratory/volume status Influenza A and B- blood culture 2 no growth to date sputum cultures are pending collection CXR:No acute disease. Electrolyte abnormality, mild hypokalemia-resolved Replace and monitor Hx of COPD, stable Cont therapy as ordered Hx of Bilateral DVT, 2014 Cont full anticoagulation with Xarelto Pulmonary hypertension Depression / Anxiety Cont Xanax, trazodone, and lamotrigine Dyslipidemia Cont Statin GERD Cont Omeprazole DVT prophylaxis On Xarelto DISPOSITION: Anticipate discharge this week VS, I&O, 24H, Fishbone Vital Signs/I&O Vital Signs Date Time Temp Pulse Resp B/P (MAP) Pulse Ox O2 Delivery O2 Flow Rate FiO2 10/10/18 09:10 18 10/10/18 08:00 1.0 10/10/18 06:00 97.4 109 135/97 (110) 96 10/08/18 06:00 Nasal Cannula l I&O- Last 24 Hours up to 6 AM 10/10/18 06:00 Intake Total 1130 ml Output Total 1650 ml Balance -520 ml Laboratory Data 24H LABS Laboratory Tests 2 10/10/18 05:56: Nucleated Red Blood Cells % (auto) 0.0, Anion Gap 8, Glomerular Filtration Rate 51.2, Blood Urea Nitrogen 39H, Creatinine 1.15, Sodium Level 137, Potassium Level 3.5, Chloride Level 94L, Carbon Dioxide Level 35H, Calcium Level 9.1 CBC/BMP Laboratory Tests 10/10/18 05:56 Red Blood Count 4.65, Mean Corpuscular Volume 89.7, Mean Corpuscular Hemoglobin 28.2, Mean Corpuscular Hemoglobin Concent 31.4 L, Red Cell Distribution Width 15.6 H, Calcium Level 9.1 Microbiology Microbiology 10/07/18 Blood Culture - Preliminary, Resulted No Growth after 48 hours. All Specime... 10/07/18 Blood Culture - Preliminary, Resulted No Growth after 48 hours. All Specime... YUMIKO GIRON MD Oct 10, 2018 12:09
[2018-10-10 14:00] VITALS: BP 133/89
[2018-10-10] MEDS: traZODone 50 MG TAB PO SCH (21:47)
[2018-10-10] MEDS: SENNA 8.6 MG TAB (SENOKOT) PO SCH (21:47)
[2018-10-10] MEDS: SIMVASTATIN 20 MG TAB PO SCH (21:48)
[2018-10-10 22:00] VITALS: BP 129/62
[2018-10-11] MEDS: PERCOCET 5MG/325MG TAB PO PRN ×5 (03:09→21:13)
[2018-10-11] MEDS: IPRATROPIUM 0.5MG/ALBUTEROL 2.5MG INH SOL UD 3ML (DUONEB)(J7620) NEB SCH ×4 (04:09→20:51)
[2018-10-11 06:00] VITALS: BP 128/74
[2018-10-11 06:04] LABS: HEMATOCRIT 40.6 % (36.0-47.0); HEMOGLOBIN 12.6 g/dl (12.0-15.5); MEAN CORPUSCULAR HEMOGLOBIN 28.3 pg (27.0-33.0); PLATELET COUNT, AUTOMATED 210 10^3/uL (150-450); RED BLOOD COUNT 4.46 10^6/uL (4.00-5.40); WHITE BLOOD COUNT 11.3 10^3/uL (4.0-10.0)
[2018-10-11 06:26] LABS: CALCIUM LEVEL 9.4 MG/DL (8.8-10.2); CREATININE FOR GFR 1.13 MG/DL (0.55-1.30); GLOMERULAR FILTRATION RATE 52.3 (>45); POTASSIUM SERUM 3.5 MEQ/L (3.5-5.1)
[2018-10-11] MEDS: FUROSEMIDE 40 MG/4 ML VIAL (J1940) IV SCH ×3 (06:47→21:13)
[2018-10-11] MEDS: ADVAIR HFA 230/21MCG INHALER INH SCH ×2 (07:48→20:51)
[2018-10-11] MEDS: OMEPRAZOLE 20 MG CAP PO SCH ×2 (08:07→21:11)
[2018-10-11] MEDS: lamoTRIgine 100MG TAB PO SCH (08:07)
[2018-10-11] MEDS: RIVAROXABAN 10 MG TAB (XARELTO) PO SCH (08:08)
[2018-10-11] MEDS: ASPIRIN 81 MG ENTERIC TAB PO SCH (08:08)
[2018-10-11] MEDS: MIDODRINE 5 MG TAB PO SCH ×2 (08:08→15:22)
[2018-10-11] MEDS: FERROUS SULFATE 325MG TAB PO SCH (08:08)
[2018-10-11] MEDS: ESCITALOPRAM OXALATE 10 MG TAB (LEXAPRO) PO SCH (08:09)
[2018-10-11] MEDS: ONDANSETRON 4 MG TAB (S0181) PO PRN ×3 (08:09→21:16)
[2018-10-11] MEDS: FOLIC ACID 1 MG TAB PO SCH (08:09)
[2018-10-11] MEDS: ALPRAZolam 0.5 MG TAB PO SCH ×2 (08:10→21:10)
[2018-10-11] MEDS: IPRATROPIUM 0.5MG/ALBUTEROL 2.5MG INH SOL UD 3ML (DUONEB)(J7620) NEB PRN (10:56)
[2018-10-11 14:00] VITALS: BP 116/66
--- NOTE | 2018-10-11 17:45 | IPNPDOC ---
Date Seen The patient was seen on 10/11/18. Progress Note SUBJECTIVE: Patient feeling better today and has diuresed net -1735. No acute shortness of breath on her home oxygen. Ate breakfast without difficulty during the duration of her hospitalization. Patient feels most likely she'll be comfortable returning home tomorrow. OBJECTIVE PHYSICAL EXAMINATION: VITAL SIGNS: Please see below. General Exam: Alert, Cooperative ENT Exam: Atraumatic, Mucous membr. moist/pink Chest Exam: Rales (faint bibasilar crackles at the bases on auscultation bilaterally including), Diminished Heart Exam: Rate Normal, Normal S1, Normal S2 Abdomen Exam: Soft; not Tenderness Extremity Exam: Swelling (2+ pitting edema in the lower extremities bilaterally); Psych Exam: Positive: Oriented x 3 LABORATORY DATA, IMAGING STUDIES, MICROBIOLOGY: Please see below. 58-year-old female with past medical history of chronic obstructive pulmonary disease on 2 L of oxygen at baseline, DVT and PE, iron deficiency anemia, hypertension, GERD, anxiety, and diastolic congestive heart failure presented to the ER with a chief complaint of increased shortness of breath. Of note, the patient was recently admitted here for a COPD exacerbation and discharged 1 week ago. At this time, the patient returns because she states that she has gained 12 pounds since her discharge. She reports that she has been eating sandwiches and chips daily since discharge. She has noticed increased swelling in her lower extremities and the lower abdominal area. She denies any complaints of fevers, chills, chest pain, palpitations, abdominal pain, or any nausea/vomiting/diarrhea. In the ER, the patient was noted to be in decompensated congestive heart failure. She will be admitted to the hospitalist service for further evaluation and management. Assessment and plan: Decompensated Diastolic CHF 2/2 Dietary Indiscretion Patient with 12lb weight gain since last admission, with clinical findings of fluid overload IV Lasix ordered Daily Weights Monitor I/O's Fluid Restriction Atkins PRN We will cont to monitor the patient's respiratory/volume status Influenza A and B- blood culture 2 no growth to date sputum cultures are pending collection CXR:No acute disease. Electrolyte abnormality, mild hypokalemia-resolved Replace and monitor Hx of COPD, stable Cont therapy as ordered Hx of Bilateral DVT, 2014 Cont full anticoagulation with Xarelto Pulmonary hypertension Depression / Anxiety Cont Xanax, trazodone, and lamotrigine Dyslipidemia Cont Statin GERD Cont Omeprazole DVT prophylaxis On Xarelto DISPOSITION: Within 24-48hr, ambulation walk study on 10/12/18 am VS, I&O, 24H, Fishbone Vital Signs/I&O Vital Signs Date Time Temp Pulse Resp B/P (MAP) Pulse Ox O2 Delivery O2 Flow Rate FiO2 10/11/18 17:19 97.8 115 20 116/66 94 1.0 10/08/18 06:00 Nasal Cannula I&O- Last 24 Hours up to 6 AM 10/11/18 06:00 Intake Total 840 ml Output Total 2275 ml Balance -1435 ml Laboratory Data 24H LABS Laboratory Tests 2 10/11/18 05:40: Nucleated Red Blood Cells % (auto) 0.0, Anion Gap 6L, Glomerular Filtration Rate 52.3, Blood Urea Nitrogen 38H, Creatinine 1.13, Sodium Level 134L, Potassium Level 3.5, Chloride Level 92L, Carbon Dioxide Level 36H, Calcium Level 9.4 CBC/BMP Laboratory Tests 10/11/18 05:40 Red Blood Count 4.46, Mean Corpuscular Volume 91.0, Mean Corpuscular Hemoglobin 28.3, Mean Corpuscular Hemoglobin Concent 31.0 L, Red Cell Distribution Width 15.8 H, Calcium Level 9.4 Microbiology Microbiology 10/07/18 Blood Culture - Preliminary, Resulted No Growth after 72 hours. All specime... 10/07/18 Blood Culture - Preliminary, Resulted No Growth after 72 hours. All specime... YUMIKO GIRON MD Oct 11, 2018 17:44
[2018-10-11] MEDS: SIMVASTATIN 20 MG TAB PO SCH (21:10)
[2018-10-11] MEDS: SENNA 8.6 MG TAB (SENOKOT) PO SCH (21:11)
[2018-10-11] MEDS: traZODone 50 MG TAB PO SCH (21:11)
[2018-10-11 22:00] VITALS: BP 130/89
[2018-10-11] MEDS ORDERED: ONDANSETRON 4MG/2ML VIAL (J2405) IV PRN (23:30)
[2018-10-12] MEDS: IPRATROPIUM 0.5MG/ALBUTEROL 2.5MG INH SOL UD 3ML (DUONEB)(J7620) NEB SCH ×4 (00:35→20:38)
[2018-10-12] MEDS: IPRATROPIUM 0.5MG/ALBUTEROL 2.5MG INH SOL UD 3ML (DUONEB)(J7620) NEB PRN (04:06)
[2018-10-12] MEDS: PERCOCET 5MG/325MG TAB PO PRN ×5 (04:38→21:12)
[2018-10-12] MEDS: FUROSEMIDE 40 MG/4 ML VIAL (J1940) IV SCH (05:58)
[2018-10-12 06:00] VITALS: BP 124/84
[2018-10-12 07:10] LABS: HEMATOCRIT 39.8 % (36.0-47.0); HEMOGLOBIN 12.3 g/dl (12.0-15.5); MEAN CORPUSCULAR HEMOGLOBIN 28.7 pg (27.0-33.0); MEAN CORPUSCULAR HGB CONC 30.9 g/dl (32.0-36.5); MEAN CORPUSCULAR VOLUME 92.8 fl (80.0-96.0); PLATELET COUNT, AUTOMATED 188 10^3/uL (150-450); RED BLOOD COUNT 4.29 10^6/uL (4.00-5.40); WHITE BLOOD COUNT 18.2 10^3/uL (4.0-10.0)
[2018-10-12 07:26] LABS: CALCIUM LEVEL 9.2 MG/DL (8.8-10.2); CREATININE FOR GFR 1.3 MG/DL (0.55-1.30); GLOMERULAR FILTRATION RATE 44.5 (>45); POTASSIUM SERUM 3.1 MEQ/L (3.5-5.1)
[2018-10-12] MEDS: ADVAIR HFA 230/21MCG INHALER INH SCH ×2 (07:50→20:38)
[2018-10-12] MEDS: RIVAROXABAN 10 MG TAB (XARELTO) PO SCH (08:54)
[2018-10-12] MEDS: ALPRAZolam 0.5 MG TAB PO SCH ×2 (08:54→22:01)
[2018-10-12] MEDS: SPIRONOLACTONE 25 MG TAB PO SCH ×2 (08:55→16:10)
[2018-10-12] MEDS: MIDODRINE 5 MG TAB PO SCH ×2 (08:55→16:11)
[2018-10-12] MEDS ORDERED: MAGNESIUM OXIDE 400 MG TAB (MAG-OX) PO ONE (09:00)
[2018-10-12] MEDS ORDERED: POTASSIUM CHLORIDE 10 MEQ SR TABLET PO ONE (09:00)
[2018-10-12] MEDS: OMEPRAZOLE 20 MG CAP PO SCH ×2 (11:03→22:00)
[2018-10-12] MEDS: ASPIRIN 81 MG ENTERIC TAB PO SCH (11:04)
[2018-10-12] MEDS: lamoTRIgine 100MG TAB PO SCH (11:04)
[2018-10-12] MEDS: ESCITALOPRAM OXALATE 10 MG TAB (LEXAPRO) PO SCH (11:05)
[2018-10-12] MEDS: FOLIC ACID 1 MG TAB PO SCH (11:05)
[2018-10-12] MEDS: FERROUS SULFATE 325MG TAB PO SCH (11:05)
[2018-10-12 12:52] VITALS: BP 124/84
[2018-10-12 14:00] VITALS: BP 114/65
--- NOTE | 2018-10-12 14:42 | IPNPDOC ---
Date Seen The patient was seen on 10/12/18. Progress Note SUBJECTIVE: Patient tells me this morning that she did not do well last night. She state she had diarrhea and not ready to return home. She looked distressed. Her daughter at the bedside. Informed patient she can go home tomorrow and her distress resolved. Component of anxiety, resume home medications. Will obtain c diff for diarrhea evaluation. She is net -705 yesterday and today -1500 so far. IV lasix switched to PO. OBJECTIVE PHYSICAL EXAMINATION: VITAL SIGNS: Please see below. General Exam: Alert, Cooperative ENT Exam: Atraumatic, Mucous membr. moist/pink Chest Exam: equal air entry, Diminished but no overt sounds Heart Exam: Rate Normal, Normal S1, Normal S2 Abdomen Exam: Soft; not Tenderness Extremity Exam: improved pitting edema in the lower extremities bilaterally; Psych Exam: Positive: Oriented x 3 LABORATORY DATA, IMAGING STUDIES, MICROBIOLOGY: Please see below. 58-year-old female with past medical history of chronic obstructive pulmonary disease on 2 L of oxygen at baseline, DVT and PE, iron deficiency anemia, hypertension, GERD, anxiety, and diastolic congestive heart failure presented to the ER with a chief complaint of increased shortness of breath. Of note, the patient was recently admitted here for a COPD exacerbation and discharged 1 week ago. At this time, the patient returns because she states that she has gained 12 pounds since her discharge. She reports that she has been eating sandwiches and chips daily since discharge. She has noticed increased swelling in her lower extremities and the lower abdominal area. She denies any complaints of fevers, chills, chest pain, palpitations, abdominal pain, or any nausea/vomiting/diarrhea. In the ER, the patient was noted to be in decompensated congestive heart failure. She was admitted to the hospitalist service for further evaluation and management of acute decompensated chf. She complained of diarrhea and c.diff ordered. Assessment and plan: Decompensated Diastolic CHF 2/2 Dietary Indiscretion -Patient with 12lb weight gain since last admission, with clinical findings of fluid overload -IV Lasix changed to PO -Daily Weights -Monitor I/O's -Fluid Restriction -Atkins PRN -We will cont to monitor the patient's respiratory/volume status -Influenza A and B- -blood culture 2 no growth to date -sputum cultures are pending collection -CXR:No acute disease. Diarrhea -c.diff ordered Electrolyte abnormality, mild hypokalemia-resolved -Replace and monitor Hx of COPD, stable -Cont therapy as ordered Hx of Bilateral DVT, 2015 -Cont full anticoagulation with Xarelto Pulmonary hypertension Depression / Anxiety -Cont Xanax, trazodone, and lamotrigine Dyslipidemia -Cont Statin GERD -Cont Omeprazole DVT prophylaxis On Xarelto DISPOSITION: . VS, I&O, 24H, Fishbone Vital Signs/I&O Vital Signs Date Time Temp Pulse Resp B/P (MAP) Pulse Ox O2 Delivery O2 Flow Rate FiO2 10/12/18 14:00 97.2 108 19 114/65 (81) 95 1.5 10/12/18 07:52 Nasal Cannula I&O- Last 24 Hours up to 6 AM 10/12/18 06:00 Intake Total 820 ml Output Total 2725 ml Balance -1905 ml Laboratory Data 24H LABS Laboratory Tests 2 10/12/18 06:16: Nucleated Red Blood Cells % (auto) 0.0, Anion Gap 5L, Glomerular Filtration Rate 44.5L, Blood Urea Nitrogen 39H, Creatinine 1.30, Sodium Level 138, Potassium Level 3.1L, Chloride Level 95L, Carbon Dioxide Level 38H, Calcium Level 9.2 CBC/BMP Laboratory Tests 10/12/18 06:16 Red Blood Count 4.29, Mean Corpuscular Volume 92.8, Mean Corpuscular Hemoglobin 28.7, Mean Corpuscular Hemoglobin Concent 30.9 L, Red Cell Distribution Width 15.6 H, Calcium Level 9.2 Microbiology Microbiology 10/07/18 Blood Culture - Preliminary, Resulted No Growth after 72 hours. All specime... 10/07/18 Blood Culture - Preliminary, Resulted No Growth after 72 hours. All specime... YUMIKO GIRON MD Oct 12, 2018 14:42
[2018-10-12 22:00] VITALS: BP 116/70
[2018-10-12] MEDS: SIMVASTATIN 20 MG TAB PO SCH (22:00)
[2018-10-12] MEDS: SENNA 8.6 MG TAB (SENOKOT) PO SCH (22:01)
[2018-10-12] MEDS: traZODone 50 MG TAB PO SCH (22:01)
[2018-10-13] MEDS: IPRATROPIUM 0.5MG/ALBUTEROL 2.5MG INH SOL UD 3ML (DUONEB)(J7620) NEB PRN (01:13)
[2018-10-13] MEDS: IPRATROPIUM 0.5MG/ALBUTEROL 2.5MG INH SOL UD 3ML (DUONEB)(J7620) NEB SCH ×3 (01:13→14:12)
[2018-10-13] MEDS: PERCOCET 5MG/325MG TAB PO PRN ×3 (05:48→14:17)
[2018-10-13 06:00] VITALS: BP 116/70
[2018-10-13 06:04] LABS: HEMATOCRIT 37.1 % (36.0-47.0); HEMOGLOBIN 11.2 g/dl (12.0-15.5); MEAN CORPUSCULAR HEMOGLOBIN 28.1 pg (27.0-33.0); MEAN CORPUSCULAR HGB CONC 30.2 g/dl (32.0-36.5); PLATELET COUNT, AUTOMATED 166 10^3/uL (150-450); RED BLOOD COUNT 3.99 10^6/uL (4.00-5.40); WHITE BLOOD COUNT 9.2 10^3/uL (4.0-10.0)
[2018-10-13 06:24] LABS: CALCIUM LEVEL 9.3 MG/DL (8.8-10.2); CREATININE FOR GFR 1.14 MG/DL (0.55-1.30); GLOMERULAR FILTRATION RATE 51.8 (>45); POTASSIUM SERUM 4.1 MEQ/L (3.5-5.1)
[2018-10-13] MEDS ORDERED: ACETYLCYSTEINE 10% 30 ML VIAL INH SCH (08:00)
[2018-10-13] MEDS ORDERED: TORSEMIDE 20 MG TAB PO SCH (09:00)
[2018-10-13] MEDS: ADVAIR HFA 230/21MCG INHALER INH SCH (09:00)
[2018-10-13] MEDS: ALPRAZolam 0.5 MG TAB PO SCH (10:04)
[2018-10-13] MEDS: lamoTRIgine 100MG TAB PO SCH (10:04)
[2018-10-13] MEDS: OMEPRAZOLE 20 MG CAP PO SCH (10:04)
[2018-10-13] MEDS: FERROUS SULFATE 325MG TAB PO SCH (10:05)
[2018-10-13] MEDS: FOLIC ACID 1 MG TAB PO SCH (10:05)
[2018-10-13] MEDS: ASPIRIN 81 MG ENTERIC TAB PO SCH (10:05)
[2018-10-13] MEDS: ESCITALOPRAM OXALATE 10 MG TAB (LEXAPRO) PO SCH (10:05)
[2018-10-13] MEDS: MIDODRINE 5 MG TAB PO SCH ×2 (10:10→16:15)
[2018-10-13] MEDS: RIVAROXABAN 10 MG TAB (XARELTO) PO SCH (10:10)
[2018-10-13] MEDS: SPIRONOLACTONE 25 MG TAB PO SCH ×2 (10:10→16:15)
[2018-10-13] MEDS ORDERED: MUCI600T31 PO (12:44)
--- NOTE | 2018-10-13 12:47 | DS.PDOC ---
Discharge Summary General Date of Admission Oct 07, 2018 at 22:42 Date of Discharge 10/13/18 Discharge Summary PROCEDURES PERFORMED DURING STAY: [None]. ADMITTING DIAGNOSES: Decompensated Diastolic CHF 2/2 Dietary Indiscretion Hx of COPD Hx of Bilateral DVT, 2014 Pulmonary hypertension Depression / Anxiety Dyslipidemia GERD DISCHARGE DIAGNOSES: Decompensated Diastolic CHF 2/2 Dietary Indiscretion Hx of COPD Hx of Bilateral DVT, 2015 Pulmonary hypertension Depression / Anxiety Dyslipidemia GERD Diarrhea Electrolyte abnormality COMPLICATIONS/CHIEF COMPLAINT: Diastolic Chf, Acute On Chronic. HISTORY OF PRESENT ILLNESS: [58-year-old female with past medical history of chronic obstructive pulmonary disease on 2 L of oxygen at baseline, DVT and PE, iron deficiency anemia, hypertension, GERD, anxiety, and diastolic congestive heart failure presented to the ER with a chief complaint of increased shortness of breath. Of note, the patient was recently admitted here for a COPD exacerbation and discharged 1 week ago. At this time, the patient returns because she states that she has gained 12 pounds since her discharge. She reports that she has been eating sandwiches and chips daily since discharge. She has noticed increased swelling in her lower extremities and the lower abdominal area. She denies any complaints of fevers, chills, chest pain, palpitations, abdominal pain, or any nausea/vomiting/diarrhea. In the ER, the patient was noted to be in decompensated congestive heart failure. She was admitted to the hospitalist service for further evaluation and management of acute decompensated chf. ]. HOSPITAL COURSE: [ 58-year-old female with past medical history of chronic obstructive pulmonary disease on 2 L of oxygen at baseline, DVT and PE, iron deficiency anemia, hypertension, GERD, anxiety, and diastolic congestive heart failure presented to the ER with a chief complaint of increased shortness of breath. Of note, the patient was recently admitted here for a COPD exacerbation and discharged 1 week ago. At this time, the patient returns because she states that she has gained 12 pounds since her discharge. She reports that she has been eating sandwiches and chips daily since discharge. She has noticed increased swelling in her lower extremities and the lower abdominal area. She denies any complaints of fevers, chills, chest pain, palpitations, abdominal pain, or any nausea /vomiting/diarrhea. In the ER, the patient was noted to be in decompensated congestive heart failur e. She was admitted to the hospitalist service for further evaluation and management of acute decompensated chf. She diuresis and back to her baseline. She complained of diarrhea and generalized discomfort one the day of agreed discharge. Stool c.diff ordered but none collected and no sample. Today patient comfortable returning home. She has a aid that helps her and has an appointment with PCP tomorrow. Patient today eagered to return home today. Assessment and plan: Decompensated Diastolic CHF 2/2 Dietary Indiscretion -Patient with 12lb weight gain since last admission, with clinical findings of fluid overload -IV Lasix changed to PO -Daily Weights -Monitor I/O's -Fluid Restriction -Atkins PRN -We will cont to monitor the patient's respiratory/volume status -Influenza A and B- -blood culture 2 no growth to date -sputum cultures are pending collection -CXR:No acute disease. Diarrhea -c.diff ordered, no sample to collect Electrolyte abnormality, mild hypokalemia-resolved -Replace and monitor Hx of COPD, stable -Cont therapy as ordered Hx of Bilateral DVT, 2014 -Cont full anticoagulation with Xarelto Pulmonary hypertension Depression / Anxiety -Cont Xanax, trazodone, and lamotrigine Dyslipidemia -Cont Statin GERD -Cont Omeprazole ]. DISCHARGE MEDICATIONS: Please see below. ALLERGIES: Please see below. PHYSICAL EXAMINATION ON DISCHARGE: VITAL SIGNS: Please see below. General Exam: Alert, Cooperative ENT Exam: Atraumatic, Mucous membr. moist/pink Chest Exam: equal air entry, Diminished but no overt sounds Heart Exam: Rate Normal, Normal S1, Normal S2 Abdomen Exam: Soft; not Tenderness Extremity Exam: improved pitting edema in the lower extremities bilaterally; Psych Exam: Positive: Oriented x 3 LABORATORY DATA: Please see below. IMAGING: [CXR:No acute disease.] PROGNOSIS: [improved] ACTIVITY: [As tolerated]. DIET: [low salt, cardiac diet] DISCHARGE PLAN: [ Please follow up with PCP within one week for medication adjustment as needed. Please follow the recommended therapeutic management and please return to the hospital if condition worsens.] DISPOSITION: Home DISCHARGE CONDITION: [Stable]. TIME SPENT ON DISCHARGE: Greater than [30] minutes. Vital Signs/I&Os Vital Signs Date Time Temp Pulse Resp B/P (MAP) Pulse Ox O2 Delivery O2 Flow Rate FiO2 10/13/18 10:06 18 2.0 10/13/18 06:18 99 97 10/13/18 06:00 98.0 116/70 (85) 10/12/18 07:52 Nasal Cannula I&O- Last 24 Hours up to 6 AM 10/13/18 06:00 Intake Total 750 ml Output Total 950 ml Balance -200 ml Laboratory Data Labs 24H Laboratory Tests 2 10/13/18 05:43: Nucleated Red Blood Cells % (auto) 0.0, Anion Gap 4L, Glomerular Filtration Rate 51.8, Blood Urea Nitrogen 28H, Creatinine 1.14, Sodium Level 135L, Potassium Level 4.1#, Chloride Level 93L, Carbon Dioxide Level 38H, Calcium Level 9.3 CBC/BMP Laboratory Tests 10/13/18 05:43 Red Blood Count 3.99 L, Mean Corpuscular Volume 93.0, Mean Corpuscular Hemoglobin 28.1, Mean Corpuscular Hemoglobin Concent 30.2 L, Red Cell Distribution Width 15.3 H, Calcium Level 9.3 Microbiology Microbiology 10/07/18 Blood Culture - Final, Complete NO GROWTH AFTER 5 DAYS 10/07/18 Blood Culture - Final, Complete NO GROWTH AFTER 5 DAYS Discharge Medications Scheduled Alprazolam (Alprazolam) 1 Mg Tab, 1 MG PO BID, (Reported) Aspirin (Aspirin EC) 81 Mg Tabec, 81 MG PO DAILY, (Reported) Cholecalciferol (Vitamin D3) (Vitamin D3) 2,000 Unit Tab, 2,000 UNIT PO DAILY, ( Reported) Escitalopram Oxalate (Escitalopram Oxalate) 20 Mg Tab, 30 MG PO DAILY, (Reported) Ferrous Sulfate (Ferrous Sulfate) 325 Mg Tab, 325 MG PO DAILY, (Reported) Fluticasone/Vilanterol (Breo Ellipta 200-25 Mcg INH) 1 Inh Inh, 1 PUFF INH DAILY, (Reported) Folic Acid (Folic Acid) 1 Mg Tab, 1 MG PO DAILY, (Reported) Guaifenesin (Mucinex) 600 Mg Tab.er.12h, 600 MG PO BID for cough Lamotrigine (Lamotrigine) 150 Mg Tab, 150 MG PO DAILY, (Reported) Midodrine HCl (Midodrine HCl) 5 Mg Tab, 5 MG PO BID, (Reported) 0800/1600 Omeprazole (Omeprazole) 40 Mg Cap, 40 MG PO BID, (Reported) Rivaroxaban (Xarelto) 10 Mg Tab, 10 MG PO DAILY, (Reported) Sennosides (Senna Lax) 8.6 Mg Tablet, 2 TAB PO QHS, (Reported) Simvastatin (Zocor) 20 Mg Tab, 20 MG PO QHS, (Reported) Spironolactone (Spironolactone) 25 Mg Tab, 25 MG PO BID, (Reported) 0800/1600 Torsemide (Torsemide) 20 Mg Tab, 20 MG PO DAILY, (Reported) Trazodone HCl (Trazodone HCl) 150 Mg Tab, 150 MG PO QHS, (Reported) Scheduled PRN Albuterol Sulfate (Ventolin Hfa) 108 Mcg/Act Aer, 2 PUFF INH Q4H PRN for SHORTNESS OF BREATH, (Reported) Ipratropium/Albuterol Sulfate (Iprat-Albut 0.5-3(2.5) mg/3 ml) 1 Juan Carlos Juan Carlos, 1 JUAN CARLOS INH Q4H PRN for SHORTNESS OF BREATH, (Reported) Nitroglycerin (Nitrostat) 0.4 Mg Subl, 0.4 MG SL NITRO PRN for CHEST PAIN, (Reported) Ondansetron HCl (Ondansetron HCl) 4 Mg Tab, 4 MG PO Q6H PRN for NAUSEA, (Reported) Oxycodone HCl/Acetaminophen (Percocet 5-325 mg Tablet) 1 Tab Tab, 1 TAB PO Q4H PRN for PAIN, (Reported) Allergies Coded Allergies: morphine (Verified Allergy, Severe, SOB, itching, rash, 09/23/18) Penicillins (Verified Allergy, Intermediate, Hives, 09/23/18) Quinolones (Verified Allergy, Intermediate, Hives, 09/23/18) Sulfa (Sulfonamide Antibiotics) (Verified Allergy, Intermediate, Hives, 09/23/18) cephalexin (Verified Allergy, Intermediate, Hives, 09/23/18) clavulanic acid (Verified Allergy, Intermediate, Hives, 09/23/18) erythromycin base (Verified Allergy, Intermediate, Hives, 09/23/18) moxifloxacin (Verified Allergy, Intermediate, Hives, 09/23/18) methylprednisolone (Verified Allergy, Mild, RASH WITH IV, 09/23/18) iodine (Verified Adverse Reaction, Intermediate, Acute renal insufficiency , 09/23/18) iopamidol (Verified Adverse Reaction, Intermediate, Acute renal insufficiency, 09/23/18) gabapentin (Verified Adverse Reaction, Mild, Upset stomach, 09/23/18) YUMIKO GIRON MD Oct 13, 2018 12:40
[2018-10-13 14:00] VITALS: BP 141/77
== END 2018-10-13 17:30 | disposition home health service (06) | DRG 194 ==
LOC: M ED 19:54 → M ED INP 22:42 → M MSPAV 10-08 14:35
PROVIDERS: ADMIT Internal Medicine; ATTEND Internal Medicine
DX: I11.0 Hypertensive heart disease with heart failure (principal); I27.20 Pulmonary hypertension, unspecified; Z99.81 Dependence on supplemental oxygen; J44.9 Chronic obstructive pulmonary disease, unspecified; D50.9 Iron deficiency anemia, unspecified; I50.33 Acute on chronic diastolic (congestive) heart failure; K21.9 Gastro-esophageal reflux disease without esophagitis; F41.9 Anxiety disorder, unspecified; E87.6 Hypokalemia; R19.7 Diarrhea, unspecified; Z79.82 Long term (current) use of aspirin; Z79.899 Other long term (current) drug therapy; Z86.718 Personal history of other venous thrombosis and embolism; Z88.0 Allergy status to penicillin; Z88.1 Allergy status to other antibiotic agents; Z88.2 Allergy status to sulfonamides; Z88.5 Allergy status to narcotic agent; Z88.8 Allergy status to other drugs, medicaments and biological substances; Z96.641 Presence of right artificial hip joint; Z98.49 Cataract extraction status, unspecified eye; Z87.891 Personal history of nicotine dependence; Z79.01 Long term (current) use of anticoagulants; Z91.11 Patient's noncompliance with dietary regimen

== ENCOUNTER → 2018-10-14 | Outpatient (REF) | payer OTHER ==
[~2018-10-14] MED LIST changes: +MUCI600T31 PO
== END ==
LOC: M LAB REF 19:11
PROVIDERS: ATTEND Family Medicine
DX: J44.1 Chronic obstructive pulmonary disease with (acute) exacerbation (principal)

== ENCOUNTER 2018-10-18 19:56 | Emergency (ER) | payer OTHER ==
[~2018-10-18] VITALS: Ht 162.6 cm; Wt 111.4 kg
[2018-10-18] MEDS ORDERED: IPRATROPIUM 0.5MG/ALBUTEROL 2.5MG INH SOL UD 3ML (DUONEB)(J7620) NEB ONE (21:15)
[2018-10-18 22:12] LABS: BASO % 0.1 % (0.0-1.0); HEMATOCRIT 35.9 % (36.0-47.0); HEMOGLOBIN 10.9 g/dl (12.0-15.5); LYMPH # 0.4 10^3/uL (1.5-4.5); LYMPH % 4.5 % (24.0-44.0); MEAN CORPUSCULAR HEMOGLOBIN 28.6 pg (27.0-33.0); MEAN CORPUSCULAR HGB CONC 30.4 g/dl (32.0-36.5); MEAN CORPUSCULAR VOLUME 94.2 fl (80.0-96.0); MONO # 0.1 10^3/uL (0.0-0.8); MONO % 0.9 % (0.0-5.0); NEUTROPHILS # 7.3 10^3/uL (1.8-7.7); NEUTROPHILS % 93.9 % (36.0-66.0); PLATELET COUNT, AUTOMATED 257 10^3/uL (150-450); RED BLOOD COUNT 3.81 10^6/uL (4.00-5.40); WHITE BLOOD COUNT 7.8 10^3/uL (4.0-10.0)
[2018-10-18 22:38] LABS: VENOUS BASE EXCESS 5.1 (-2.0-2.0); VENOUS HCO3 32.3 MEQ/L (23.0-27.0); VENOUS PARTIAL PRESSURE CO2 60.5 mmHg (38.0-50.0); VENOUS PARTIAL PRESSURE O2 62.1 mmHg (30.0-50.0); VENOUS PH 7.345 UNITS (7.330-7.430); VENOUS STANDARD HCO3 28.9 MEQ/L; VENOUS TOTAL CO2 34.1 MEQ/L (24.0-28.0)
[2018-10-18 22:39] LABS: BLOOD UREA NITROGEN 24 MG/DL (7-18); CALCIUM LEVEL 8.7 MG/DL (8.8-10.2); CARBON DIOXIDE LEVEL 35 MEQ/L (21-32); CHLORIDE LEVEL 102 MEQ/L (98-107); CPK CREATINE PHOSPHOKINASE 29 U/L (26-192); CREATININE FOR GFR 0.96 MG/DL (0.55-1.30); GLOMERULAR FILTRATION RATE > 60.0 (>45); GLUCOSE, FASTING 153 MG/DL (70-100); MB/CK RELATIVE INDEX 4.83 (< OR =4); NT-PRO BNP 111 PG/ML (<125); POTASSIUM SERUM 5.1 MEQ/L (3.5-5.1); SODIUM LEVEL 139 MEQ/L (136-145); TROPONIN I < 0.02 NG/ML (< 0.10)
[2018-10-18 22:45] LABS: INFLUENZA A AMPLIFICATION NEGATIVE (NEGATIVE); INFLUENZA B AMPLIFICATION NEGATIVE (NEGATIVE)
[2018-10-18] MEDS ORDERED: LORazepam 1 MG TAB PO STA (23:03)
[2018-10-18] MEDS ORDERED: IBUPROFEN 800 MG TAB PO ONE (23:15)
[2018-10-19 00:16] LABS: INR 1.14; PROTHROMBIN TIME 14.8 SECONDS (12.1-14.4)
[2018-10-19 00:17] LABS: PARTIAL THROMBOPLASTIN TIME 30.5 SECONDS (25.4-37.6)
[2018-10-19 00:19] LABS: D-DIMER QUANT 321.26 ng/ml (<500)
[2018-10-19 00:48] VITALS: BP 148/87
--- NOTE | 2018-10-19 14:20 | REP ---
CHEST, TWO VIEWS: Two views of the chest were performed and compared to multiple prior studies, most recently 10/07/2018. I see no acute infiltrate. Lung white appear unchanged. Heart is not enlarged. Mediastinal silhouette is unchanged. There is osteopenia. There is a compression deformity of a mid thoracic vertebral body which is stable. IMPRESSION: No acute findings. Electronically Signed by Mikhail Cochran MD 10/19/2018 03:55 P
--- NOTE | 2018-10-20 20:53 | ECGEPIP ---
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
== END 2018-10-19 01:47 | disposition home or self-care (01) ==
LOC: M ED 19:56 → EDBD 19:56 → M ED 10-19 01:47
DX: F41.9 Anxiety disorder, unspecified (principal); J44.9 Chronic obstructive pulmonary disease, unspecified; Z99.81 Dependence on supplemental oxygen; I50.9 Heart failure, unspecified; Z86.718 Personal history of other venous thrombosis and embolism; F32.9 Major depressive disorder, single episode, unspecified; K21.9 Gastro-esophageal reflux disease without esophagitis; Z88.8 Allergy status to other drugs, medicaments and biological substances; Z88.0 Allergy status to penicillin; Z88.2 Allergy status to sulfonamides; Z88.1 Allergy status to other antibiotic agents; Z88.5 Allergy status to narcotic agent; Z79.899 Other long term (current) drug therapy; Z79.01 Long term (current) use of anticoagulants; Z79.82 Long term (current) use of aspirin; Z79.51 Long term (current) use of inhaled steroids

== ENCOUNTER 2018-10-30 12:16 | Inpatient (IN) | payer OTHER ==
[~2018-10-30] VITALS: Ht 162.6 cm; Wt 102.7 kg
[2018-10-30 13:26] LABS: VENOUS BASE EXCESS 11.7 (-2.0-2.0); VENOUS HCO3 40.6 MEQ/L (23.0-27.0); VENOUS O2 SATURATION 95.4 % (60.0-80.0); VENOUS PARTIAL PRESSURE O2 76.5 mmHg (30.0-50.0); VENOUS PH 7.334 UNITS (7.330-7.430); VENOUS STANDARD HCO3 35.4 MEQ/L
[2018-10-30 13:27] LABS: BASO % 0.5 % (0.0-1.0); EOS # 0.2 10^3/uL (0.0-0.50); EOS % 3.1 % (0.0-3.0); HEMATOCRIT 37.8 % (36.0-47.0); HEMOGLOBIN 11.2 g/dl (12.0-15.5); LYMPH # 1.4 10^3/uL (1.5-4.5); LYMPH % 21.4 % (24.0-44.0); MEAN CORPUSCULAR HEMOGLOBIN 28.7 pg (27.0-33.0); MEAN CORPUSCULAR HGB CONC 29.6 g/dl (32.0-36.5); MEAN CORPUSCULAR VOLUME 96.9 fl (80.0-96.0); MONO # 0.8 10^3/uL (0.0-0.8); MONO % 13.2 % (0.0-5.0); NEUTROPHILS # 3.9 10^3/uL (1.8-7.7); NEUTROPHILS % 61.5 % (36.0-66.0); PLATELET COUNT, AUTOMATED 239 10^3/uL (150-450); WHITE BLOOD COUNT 6.4 10^3/uL (4.0-10.0)
--- NOTE | 2018-10-30 13:43 | ECGEPIP ---
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
[2018-10-30 13:56] LABS: INFLUENZA A AMPLIFICATION NEGATIVE (NEGATIVE); INFLUENZA B AMPLIFICATION NEGATIVE (NEGATIVE)
[2018-10-30 13:57] LABS: ALBUMIN 2.8 GM/DL (3.2-5.2); ALT/SGPT 22 U/L (12-78); BILIRUBIN,DIRECT < 0.1 MG/DL (0.0-0.2); BILIRUBIN,TOTAL 0.3 MG/DL (0.2-1.0); BLOOD UREA NITROGEN 7 MG/DL (7-18); CALCIUM LEVEL 8.7 MG/DL (8.8-10.2); CARBON DIOXIDE LEVEL 39 MEQ/L (21-32); CHLORIDE LEVEL 96 MEQ/L (98-107); CPK CREATINE PHOSPHOKINASE 29 U/L (26-192); CREATININE FOR GFR 0.83 MG/DL (0.55-1.30); GLOMERULAR FILTRATION RATE > 60.0 (>45); GLUCOSE, FASTING 94 MG/DL (70-100); MB/CK RELATIVE INDEX 4.48 (< OR =4); NT-PRO BNP 55 PG/ML (<125); POTASSIUM SERUM 4.5 MEQ/L (3.5-5.1); SODIUM LEVEL 139 MEQ/L (136-145); THYROID STIMULATING HORMONE 0.985 uIU/ML (0.358-3.740); TOTAL PROTEIN 6.3 GM/DL (6.4-8.2); TROPONIN I < 0.02 NG/ML (< 0.10)
[2018-10-30 13:59] LABS: INR 1.44; PROTHROMBIN TIME 17.8 SECONDS (12.1-14.4)
[2018-10-30] MEDS ORDERED: ALBUTEROL SULFATE 2.5 MG/0.5 ML INH NEB SOLN INH ONE (14:00)
[2018-10-30] MEDS ORDERED: IPRATROPIUM 0.5MG/ALBUTEROL 2.5MG INH SOL UD 3ML (DUONEB)(J7620) NEB ONE (14:00)
--- NOTE | 2018-10-30 14:18 | REP ---
Portable chest, 12:59 p.m., single AP view, the patient is upright: Comparison is the PA and lateral chest of 10/18/2018. The lung white are clear. The cardiac size is normal. The adair, mediastinum, and skeletal structures are unremarkable. Impression: Negative portable chest. Electronically Signed by Mikhail Delcid MD 10/30/2018 02:09 P
[2018-10-30] MEDS ORDERED: PERCOCET 5MG/325MG TAB PO ONE (14:45)
[2018-10-30] MEDS ORDERED: ALBUTEROL SULFATE 2.5 MG/0.5 ML INH NEB SOLN NEB PRN (16:00)
[2018-10-30] MEDS ORDERED: IPRATROPIUM 0.5MG/ALBUTEROL 2.5MG INH SOL UD 3ML (DUONEB)(J7620) NEB SCH (16:00)
[2018-10-30] MEDS ORDERED: NITROGLYCERIN 0.4 MG SUBL TABLET SL PRN (16:15)
[2018-10-30] MEDS ORDERED: ONDANSETRON 4 MG TAB (S0181) PO PRN (16:15)
[2018-10-30] MEDS ORDERED: RACEPINEPHrine 2.25 % UD INHA INH ONE (16:15)
[2018-10-30] MEDS ORDERED: rOPINIRole 2MG TAB PO ONE (16:15)
[2018-10-30] MEDS: LEVALBUTEROL 1.25 MG/0.5 ML CONCENTRATE NEB NEB SCH ×3 (16:22→23:00)
[2018-10-30] MEDS: DOXYCYCLINE HYCLATE 100 MG in D5W MINI-BAG PLUS 100 ML IV SCH (16:39)
[2018-10-30] MEDS: dexameTHASONE 20 MG/5 ML VIAL (J1100) IV ONE ×2 (16:39→16:57)
[2018-10-30] MEDS: MIDODRINE 5 MG TAB PO SCH (17:57)
[2018-10-30] MEDS ORDERED: MIDODRINE 5 MG TAB PO SCH (18:00)
[2018-10-30 18:48] VITALS: BP 124/62
[2018-10-30] MEDS: SPIRONOLACTONE 25 MG TAB PO SCH (18:56)
[2018-10-30] MEDS: SIMVASTATIN 20 MG TAB PO SCH (20:29)
[2018-10-30] MEDS: PERCOCET 5MG/325MG TAB PO PRN (20:29)
[2018-10-30] MEDS: SENNA 8.6 MG TAB (SENOKOT) PO SCH (20:32)
[2018-10-30] MEDS: ALPRAZolam 0.5 MG TAB PO SCH (20:32)
[2018-10-30] MEDS: OMEPRAZOLE 20 MG CAP PO SCH (20:33)
[2018-10-30] MEDS: traZODone 50 MG TAB PO SCH (20:33)
[2018-10-30 22:00] VITALS: BP 134/84
[2018-10-31] MEDS: LEVALBUTEROL 1.25 MG/0.5 ML CONCENTRATE NEB NEB SCH ×6 (02:59→23:50)
[2018-10-31] MEDS: DOXYCYCLINE HYCLATE 100 MG in D5W MINI-BAG PLUS 100 ML IV SCH ×2 (03:01→15:05)
[2018-10-31] MEDS: PERCOCET 5MG/325MG TAB PO PRN ×4 (03:36→19:49)
[2018-10-31 06:00] VITALS: BP 117/77
[2018-10-31] MEDS ORDERED: MOXIFLOXACIN 400 MG TAB PO SCH (06:00)
[2018-10-31 06:22] LABS: HEMATOCRIT 36.9 % (36.0-47.0); HEMOGLOBIN 11.2 g/dl (12.0-15.5); MEAN CORPUSCULAR HEMOGLOBIN 29.1 pg (27.0-33.0); MEAN CORPUSCULAR HGB CONC 30.4 g/dl (32.0-36.5); MEAN CORPUSCULAR VOLUME 95.8 fl (80.0-96.0); PLATELET COUNT, AUTOMATED 235 10^3/uL (150-450); RED BLOOD COUNT 3.85 10^6/uL (4.00-5.40); WHITE BLOOD COUNT 4.1 10^3/uL (4.0-10.0)
[2018-10-31 06:41] LABS: BLOOD UREA NITROGEN 13 MG/DL (7-18); CALCIUM LEVEL 9.1 MG/DL (8.8-10.2); CARBON DIOXIDE LEVEL 37 MEQ/L (21-32); CHLORIDE LEVEL 97 MEQ/L (98-107); CREATININE FOR GFR 0.81 MG/DL (0.55-1.30); GLOMERULAR FILTRATION RATE > 60.0 (>45); GLUCOSE, FASTING 153 MG/DL (70-100); POTASSIUM SERUM 4.6 MEQ/L (3.5-5.1); SODIUM LEVEL 138 MEQ/L (136-145)
[2018-10-31 07:31] VITALS: O2SAT 93
[2018-10-31] MEDS: VITAMIN D 1,000 INTERNATIONAL UNITS TABLET PO SCH (08:53)
[2018-10-31] MEDS: ASPIRIN 81 MG ENTERIC TAB PO SCH (08:53)
[2018-10-31] MEDS: FOLIC ACID 1 MG TAB PO SCH (08:53)
[2018-10-31] MEDS: ALPRAZolam 0.5 MG TAB PO SCH ×2 (08:53→20:28)
[2018-10-31] MEDS: TORSEMIDE 20 MG TAB PO SCH (08:53)
[2018-10-31] MEDS: ESCITALOPRAM OXALATE 10 MG TAB (LEXAPRO) PO SCH (08:53)
[2018-10-31] MEDS: SPIRONOLACTONE 25 MG TAB PO SCH ×2 (08:53→16:54)
[2018-10-31] MEDS: MIDODRINE 5 MG TAB PO SCH ×2 (08:53→15:05)
[2018-10-31] MEDS: OMEPRAZOLE 20 MG CAP PO SCH ×2 (08:53→20:28)
[2018-10-31] MEDS: FERROUS SULFATE 325MG TAB PO SCH (08:53)
[2018-10-31] MEDS: LEVALBUTEROL 1.25 MG/0.5 ML CONCENTRATE NEB NEB PRN (09:45)
[2018-10-31] MEDS ORDERED: RACEPINEPHrine 2.25 % UD INHA INH SCH (10:00)
[2018-10-31] MEDS: dexameTHASONE 20 MG/5 ML VIAL (J1100) IV SCH ×2 (10:57→16:54)
--- NOTE | 2018-10-31 10:59 | HPEPDOC ---
[facility] Medical History & Physical Date of Admission October 30, 2018 History and Physical CHIEF COMPLAINT: Shortness of Breath HISTORY OF PRESENTING ILLNESS: 58-year-old female with a past medical history significant for chronic obstructive pulmonary disease (COPD) with chronic hypoxemic respiratory failure on 2 liters nasal cannula oxygen, history of deep vein thrombosis (DVT)/pulmonary embolism (PE) on Xarelto,coronary artery disease, hypertension, gastroesophageal reflux disease, anxiety, congestive heart failure with preserved Ejection Fraction, pulmonary hypertension, and orthostatic hypotension, s/p Daliresp with side effects of insomnia and mood changes, presented to the ER with c/o worsening sob for the past few days despite nebs q4hrs and breo-ellipta. she denies any fevers, chills. no cough. She denies any chest pain,pressure, tightness, lightheadedness, or any recent sick contacts. She c/o increasing PATEL and slight weight gain, and has been unable to ambulate 15-20 feet at home. She is compliant with her xarelto. In the ER, pt was found to be wheezing. CXR: no infiltrate. Hospitalist was called to admit. PAST MEDICAL HISTORY: 1. COPD with chronic hypoxemic respiratory failure. 2. DVT and PE on Xarelto. 3. Iron deficiency anemia. 4. CAD. 5. Hypertension. 6. Gastroesophageal reflux disease. 7. Anxiety. 8. Chronic pain and degenerative joint disease. 9. CHF. 10. Orthostatic hypotension. 11. Pulmonary hypertension. PAST SURGICAL HISTORY: 1. Leg surgeries. 2. Right hip replacement. 3. Hysterectomy. 4. Bladder tuck. 5. Cataract surgery. SOCIAL HISTORY: Former smoker, was one to two packs a day for 38 years, quit in 2010. No alcohol use or illicit drug use. 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 FAMILY HISTORY: Mother with history of hypertension, hyperlipidemia, coronary artery disease and unknown cancer. Father with history of lung and throat cancer. Siblings with history of cancer and COPD. A daughter with diabetes and another daughter with lupus. ALLERGIES: - AUGMENTIN - MORPHINE - AVELOX - ERYTHROMYCIN - KEFLEX - SULFA - BIAXIN - SOLU-MEDROL - CIPROFLOXACIN HOME MEDICATIONS: - iron sulfate - trazodone - simvastatin - aspirin - Percocet as needed - vitamin D - Zofran - omeprazole - spironolactone - Ventolin - Breo - DuoNebs - nitroglycerin p.r.n. - lamotrigine - folic acid - escitalopram - torsemide - Xarelto - midodrine - alprazolam as needed PHYSICAL EXAMINATION: VITALS: pls see below General: Patient is sitting in bed and is in no acute respiratory distress and is able to speak in complete sentences and is not using any accessory muscles for respiration. HEENT: Normocephalic, atraumatic. Mucous membranes are moist. Neck is supple. Trachea is midline. No palpable adenopathy, but some tenderness to palpation in the superficial cervical lymph nodes. Cardiac: Difficult to auscultate, but regular S1 and S2 and no murmurs appreciated. Pulmonary: Some diminished breath sounds bilaterally with coarse wheezes and rhonchi. Abdomen is obese and soft. No palpable masses. Nontender to palpation. Extremities: There is some trace lower extremity bilaterally and some well healed scars in the lower extremity. LABORATORY DATA, IMAGING STUDIES, MICROBIOLOGY: PLS SEE BELOW ASSESSMENT/PLAN: 58-year-old female with a past medical history significant for chronic obstructive pulmonary disease (COPD) with chronic hypoxemic respiratory failure on 2 liters nasal cannula oxygen, history of deep vein thrombosis (DVT)/pulmonary embolism (PE) on Xarelto,coronary artery disease, hypertension, gastroesophageal reflux disease, anxiety, congestive heart failure with preserved Ejection Fraction, pulmonary hypertension, and orthostatic hypotension, s/p Daliresp with side effects of insomnia and mood changes, presented to the ER with c/o worsening sob for the past few days despite nebs q4hrs and breo-ellipta. she denies any fevers, chills. no cough. She denies any chest pain,pressure, tightness, lightheadedness, or any recent sick contacts. She c/o increasing PATEL and slight weight gain, and has been unable to ambulate 15-20 feet at home. She is compliant with her xarelto. In the ER, pt was found to be wheezing. CXR: no infiltrate. Hospitalist was called to admit. Acute exacerbation of COPD with chronic hypoxemic respiratory failure on nasal cannula oxygen supplementation. She did not have any evidence of infiltrates on her chest x-ray, there was hyperinflation noted only. Her respiratory panel was negative. The patient is on dexamethasone due to allergy to solumedrol for her COPD exacerbation as well as with doxycycline. She is also xopenex [id number]-iid-[id number] due to tachycardia with albuterol. The patient reported some slight improvement, however, she continues to report a cough with difficult to expectorate sputum. Therefore, will trial her on Mucomyst nebulizers to be given with albuterol twice a day and to be used with an Acapella device after the Mucomyst treatment to see if she has improved pulmonary toilet and mucus clearance. Otherwise, will continue with her steroids and with doxycycline. She will likely need a prolonged taper of steroids. Continue with her DuoNeb treatments. The patient has a history of frequent recurrent COPD exacerbations. She had previously been tried on Daliresp as an outpatient, but was unable to tolerate it and refused to continue using it due to the side effects. Probable obstructive sleep apnea oupt fu w her outsole rounder for sleep study Restless Legs Syndrome ropinorole DVT and PE on Xarelto. compliant with meds Iron deficiency anemia chronic no acute indication for rbc transfusion CAD. no acute ischemia Hypertension. controlled Gastroesophageal reflux disease. chronic Anxiety. chronic Chronic pain and degenerative joint disease. CHF with preserved EF strict i/o monitor urine output Pulmonary hypertension. complicating care Obesity BMI 38.9 complicating care Continue DVT prophylaxis with full anticoagulation with the Xarelto. Vital Signs Vital Signs Date Time Temp Pulse Resp B/P (MAP) Pulse Ox O2 Delivery O2 Flow Rate FiO2 10/30/18 14:54 20 10/30/18 14:31 102 94 Nasal Cannula 2.0 10/30/18 14:30 110/57 (74) 10/30/18 12:35 99.0 Laboratory Data Labs 24H Laboratory Tests 2 10/30/18 13:07: Prothrombin Time 17.8H, Prothromb Time International Ratio 1.44, Anion Gap 4L, Glomerular Filtration Rate > 60.0, Calcium Level 8.7L, Aspartate Amino Transf (AST/SGOT) 15, Alanine Aminotransferase (ALT/SGPT) 22, Alkaline Phosphatase 94, Total Bilirubin 0.3, Direct Bilirubin < 0.1, Total Creatine Kinase 29, Creatine Kinase MB 1.0, Creatine Kinase MB Relative Index 4.48H, Troponin I < 0.02, IV-Paq-P-Type Natriuretic Peptide 55, Total Protein 6.3L, Albumin 2.8L, Albumin/Globulin Ratio 0.80L, Thyroid Stimulating Hormone (TSH) 0.985 10/30/18 13:08: Immature Granulocyte % (Auto) 0.3, White Blood Count 6.4, Red Blood Count 3.90L, Hemoglobin 11.2L, Hematocrit 37.8, Mean Corpuscular Volume 96.9H, Mean Corpuscular Hemoglobin 28.7, Mean Corpuscular Hemoglobin Concent 29.6L, Red Cell Distribution Width 14.6H, Platelet Count 239, Neutrophils (%) (Auto) 61.5, Lymphocytes (%) (Auto) 21.4L, Monocytes (%) (Auto) 13.2H, Eosinophils (%) (Auto) 3.1H, Basophils (%) (Auto) 0.5, Neutrophils # (Auto) 3.9, Lymphocytes # (Auto) 1.4L, Monocytes # (Auto) 0.8, Eosinophils # (Auto) 0.2, Basophils # (Auto) 0.0, Nucleated Red Blood Cells % (auto) 0.0, Blood Gas Bicarbonate Standard 35.4, Venous Blood pH 7.334, Venous Blood Partial Pressure CO2 78.0H, Venous Blood Partial Pressure O2 76.5H, Venous Blood Total Carbon Dioxide 43.0H, Venous Blood HCO3 40.6H, Venous Blood Oxygen Saturation 95.4H, Venous Blood Base Excess 11.7H, Lactic Acid Level 0.9, Influenza Type A (RT-PCR) NEGATIVE, Influenza Type B (RT-PCR) NEGATIVE CBC/BMP Laboratory Tests 10/30/18 13:07 10/30/18 13:08 Red Blood Count 3.90 L, Mean Corpuscular Volume 96.9 H, Mean Corpuscular Hemoglobin 28.7, Mean Corpuscular Hemoglobin Concent 29.6 L, Red Cell Distribution Width 14.6 H, Neutrophils (%) (Auto) 61.5, Lymphocytes (%) (Auto) 21.4 L, Monocytes (%) (Auto) 13.2 H, Eosinophils (%) (Auto) 3.1 H, Basophils (%) (Auto) 0.5, Neutrophils # (Auto) 3.9, Lymphocytes # (Auto) 1.4 L, Monocytes # (Auto) 0.8, Eosinophils # (Auto) 0.2, Basophils # (Auto) 0.0 Microbiology Microbiology 10/30/18 Blood Culture, Received Pending 10/30/18 Blood Culture, Received Pending Home Medications Scheduled Alprazolam (Alprazolam) 1 Mg Tab, 1 MG PO BID Aspirin (Aspirin EC) 81 Mg Tabec, 81 MG PO DAILY Cholecalciferol (Vitamin D3) (Vitamin D3) 2,000 Unit Tab, 2,000 UNIT PO DAILY Escitalopram Oxalate (Escitalopram Oxalate) 20 Mg Tab, 20 MG PO DAILY Ferrous Sulfate (Ferrous Sulfate) 325 Mg Tab, 325 MG PO DAILY Fluticasone/Vilanterol (Breo Ellipta 200-25 Mcg INH) 1 Inh Inh, 1 PUFF INH DAILY Folic Acid (Folic Acid) 1 Mg Tab, 1 MG PO DAILY Ipratropium/Albuterol Sulfate (Iprat-Albut 0.5-3(2.5) mg/3 ml) 1 Loan Loan, 1 DOSE INH Q4H Lamotrigine (Lamotrigine) 150 Mg Tab, 150 MG PO DAILY Midodrine HCl (Midodrine HCl) 5 Mg Tab, 5 MG PO BID 0800/1600 Omeprazole (Omeprazole) 40 Mg Cap, 40 MG PO BID Rivaroxaban (Xarelto) 10 Mg Tab, 10 MG PO DAILY Sennosides (Senna Lax) 8.6 Mg Tablet, 2 TAB PO QHS Simvastatin (Zocor) 20 Mg Tab, 20 MG PO QHS Spironolactone (Spironolactone) 25 Mg Tab, 25 MG PO BID 0800/1600 Torsemide (Torsemide) 20 Mg Tab, 20 MG PO DAILY Trazodone HCl (Trazodone HCl) 150 Mg Tab, 150 MG PO QHS Scheduled PRN Albuterol Sulfate (Ventolin Hfa) 108 Mcg/Act Aer, 2 PUFF INH Q4H PRN for SHORTNESS OF BREATH Nitroglycerin (Nitrostat) 0.4 Mg Subl, 0.4 MG SL NITRO PRN for CHEST PAIN Ondansetron HCl (Ondansetron HCl) 4 Mg Tab, 4 MG PO Q6H PRN for NAUSEA Oxycodone HCl/Acetaminophen (Percocet 5-325 mg Tablet) 1 Tab Tab, 1 TAB PO Q4H PRN for PAIN Allergies Coded Allergies: morphine (Verified Allergy, Severe, SOB, itching, rash, 09/23/18) Penicillins (Verified Allergy, Intermediate, Hives, 09/23/18) Quinolones (Verified Allergy, Intermediate, Hives, 09/23/18) Sulfa (Sulfonamide Antibiotics) (Verified Allergy, Intermediate, Hives, 09/23/18) cephalexin (Verified Allergy, Intermediate, Hives, 09/23/18) clavulanic acid (Verified Allergy, Intermediate, Hives, 09/23/18) erythromycin base (Verified Allergy, Intermediate, Hives, 09/23/18) moxifloxacin (Verified Allergy, Intermediate, Hives, 09/23/18) methylprednisolone (Verified Allergy, Mild, RASH WITH IV, 09/23/18) levofloxacin (Verified Allergy, Unknown, 10/30/18) iodine (Verified Adverse Reaction, Intermediate, Acute renal insufficiency , 09/23/18) iopamidol (Verified Adverse Reaction, Intermediate, Acute renal insufficiency, 09/23/18) gabapentin (Verified Adverse Reaction, Mild, Upset stomach, 09/23/18) A-FIB/CHADSVASC A-FIB History Current/History of A-Fib/PAF?: No Current Oral Anticoagulant The: PORTIA Soares MD October 30, 2018 16:00
--- NOTE | 2018-10-31 11:07 | IPNPDOC ---
Date Seen The patient was seen on 10/31/18. Progress Note SUBJECTIVE: Pt was and seen examined this am. Pt's restless legs is improved. still sob. PATEL. no chest pain, , pressure, palpitations, lightheadedness. PHYSICAL EXAMINATION: VITALS: pls see below General: Patient is sitting in bed and is in no acute respiratory distress and is able to speak in complete sentences and is not using any accessory muscles for respiration. HEENT: Normocephalic, atraumatic. Mucous membranes are moist. Neck is supple. Trachea is midline. No palpable adenopathy, but some tenderness to palpation in the superficial cervical lymph nodes. Cardiac: Difficult to auscultate, but regular S1 and S2 and no murmurs appreciated. Pulmonary: Some diminished breath sounds bilaterally with coarse wheezes and rhonchi. Abdomen is obese and soft. No palpable masses. Nontender to palpation. Extremities: There is some trace lower extremity bilaterally and some well healed scars in the lower extremity. LABORATORY DATA, IMAGING STUDIES, MICROBIOLOGY: PLS SEE BELOW ASSESSMENT/PLAN: 58-year-old female with a past medical history significant for chronic obs tructive pulmonary disease (COPD) with chronic hypoxemic respiratory failure on 2 liters nasal cannula oxygen, history of deep vein thrombosis (DVT)/pulmonary embolism (PE) on Xarelto,coronary artery disease, hypertension, gastroesophageal reflux disease, anxiety, congestive heart failure with preserved Ejection Fraction, pulmonary hypertension, and orthostatic hypotension, s/p Daliresp with side effects of insomnia and mood changes, presented to the ER with c/o worsening sob for the past few days despite nebs q4hrs and breo-ellipta. she denies any fevers, chills. no cough. She denies any chest pain,pressure, tightness, lightheadedness, or any recent sick contacts. She c/o increasing PATEL and slight weight gain, and has been unable to ambulate 15-20 feet at home. She is compliant with her xarelto. In the ER, pt was found to be wheezing. CXR: no infiltrate. Hospitalist was called to admit. Acute exacerbation of COPD with chronic hypoxemic respiratory failure on nasal cannula oxygen supplementation. She did not have any evidence of infiltrates on her chest x-ray, there was hyperinflation noted only. Her respiratory panel was negative. The patient is on dexamethasone due to allergy to solumedrol for her COPD exacerbation as well as with doxycycline. She is also xopenex akfxqt-bak-kocom due to tachycardia with albuterol. The patient reported some slight improvement, however, she continues to report a cough with difficult to expectorate sputum. Therefore, will trial her on Mucomyst nebulizers to be given with albuterol twice a day and to be used with an Acapella device after the Mucomyst treatment to see if she has improved pulmonary toilet and mucus clearance. Otherwise, will continue with her steroids and with doxycycline. She will likely need a prolonged taper of steroids. Continue with her DuoNeb treatments. The patient has a history of frequent recurrent COPD exacerbations. She had previously been tried on Daliresp as an outpatient, but was unable to tolerate it and refused to continue using it due to the side effects. 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 compliant with meds Iron deficiency anemia chronic no acute indication for rbc transfusion CAD. no acute ischemia Hypertension. controlled Gastroesophageal reflux disease. chronic Anxiety. chronic Chronic pain and degenerative joint disease. CHF with preserved EF strict i/o monitor urine output Pulmonary hypertension. complicating care Obesity BMI 38.9 complicating care Continue DVT prophylaxis with full anticoagulation with the Xarelto. A-FIB/CHADSVASC A-FIB History Current/History of A-Fib/PAF?: No Current Oral Anticoagulant The: No VS, I&O, 24H, Fishbone Vital Signs/I&O Vital Signs Date Time Temp Pulse Resp B/P (MAP) Pulse Ox O2 Delivery O2 Flow Rate FiO2 10/31/18 09:51 20 93 2.0 10/31/18 07:31 98 10/31/18 07:31 Nasal Cannula 10/31/18 06:00 97.3 117/77 (90) I&O- Last 24 Hours up to 6 AM 10/31/18 06:00 Intake Total 700 ml Output Total 600 ml Balance 100 ml Laboratory Data 24H LABS Laboratory Tests 2 10/30/18 13:07: Prothrombin Time 17.8H, Prothromb Time International Ratio 1.44, Anion Gap 4L, Glomerular Filtration Rate > 60.0, Calcium Level 8.7L, Aspartate Amino Transf (AST/SGOT) 15, Alanine Aminotransferase (ALT/SGPT) 22, Alkaline Phosphatase 94, Total Bilirubin 0.3, Direct Bilirubin < 0.1, Total Creatine Kinase 29, Creatine Kinase MB 1.0, Creatine Kinase MB Relative Index 4.48H, Troponin I < 0.02, [id number]-Vwp-[id number]-Type Natriuretic Peptide 55, Total Protein 6.3L, Albumin 2.8L, Albumin/Globulin Ratio 0.80L, Thyroid Stimulating Hormone (TSH) 0.985 10/30/18 13:08: Immature Granulocyte % (Auto) 0.3, White Blood Count 6.4, Red Blood Count 3.90L, Hemoglobin 11.2L, Hematocrit 37.8, Mean Corpuscular Volume 96.9H, Mean Corpuscular Hemoglobin 28.7, Mean Corpuscular Hemoglobin Concent 29.6L, Red Cell Distribution Width 14.6H, Platelet Count 239, Neutrophils (%) (Auto) 61.5, Lymphocytes (%) (Auto) 21.4L, Monocytes (%) (Auto) 13.2H, Eosinophils (%) (Auto) 3.1H, Basophils (%) (Auto) 0.5, Neutrophils # (Auto) 3.9, Lymphocytes # (Auto) 1.4L, Monocytes # (Auto) 0.8, Eosinophils # (Auto) 0.2, Basophils # (Auto) 0.0, Nucleated Red Blood Cells % (auto) 0.0, Blood Gas Bicarbonate Standard 35.4, Venous Blood pH 7.334, Venous Blood Partial Pressure CO2 78.0H, Venous Blood Partial Pressure O2 76.5H, Venous Blood Total Carbon Dioxide 43.0H, Venous Blood HCO3 40.6H, Venous Blood Oxygen Saturation 95.4H, Venous Blood Base Excess 11.7H, Lactic Acid Level 0.9, Influenza Type A (RT-PCR) NEGATIVE, Influenza Type B (RT-PCR) NEGATIVE 10/31/18 06:02: Anion Gap 4L, Glomerular Filtration Rate > 60.0, Calcium Level 9.1, Nucleated Red Blood Cells % (auto) 0.0, Blood Urea Nitrogen 13#, Creatinine 0.81, Sodium Level 138, Potassium Level 4.6, Chloride Level 97L, Carbon Dioxide Level 37H CBC/BMP Laboratory Tests 10/30/18 13:07 10/30/18 13:08 Red Blood Count 3.90 L, Mean Corpuscular Volume 96.9 H, Mean Corpuscular Hemoglobin 28.7, Mean Corpuscular Hemoglobin Concent 29.6 L, Red Cell Distribution Width 14.6 H, Neutrophils (%) (Auto) 61.5, Lymphocytes (%) (Auto) 21.4 L, Monocytes (%) (Auto) 13.2 H, Eosinophils (%) (Auto) 3.1 H, Basophils (%) (Auto) 0.5, Neutrophils # (Auto) 3.9, Lymphocytes # (Auto) 1.4 L, Monocytes # (Auto) 0.8, Eosinophils # (Auto) 0.2, Basophils # (Auto) 0.0 10/31/18 06:02 Red Blood Count 3.85 L, Mean Corpuscular Volume 95.8, Mean Corpuscular Hemoglobin 29.1, Mean Corpuscular Hemoglobin Concent 30.4 L, Red Cell Distribution Width 14.3, Calcium Level 9.1 Microbiology Microbiology 10/30/18 Blood Culture, Received Pending 10/30/18 Blood Culture, Received Pending 10/31/18 Gram Stain, Received Pending 10/31/18 Sputum Culture, Received Pending 10/30/18 MRSA Screen, Resulted Pending 10/30/18 Respiratory Virus Panel (PCR) (JAMES) - Final, Resulted PORTIA QUIROZ MD October 31, 2018 11:07
[2018-10-31] MEDS: rOPINIRole 2MG TAB PO SCH ×2 (11:46→20:28)
[2018-10-31] MEDS: NYSTATIN 100,000 UNITS/GM TOPICAL PWD 15 GM TOP PRN (11:47)
[2018-10-31] MEDS ORDERED: ALPRAZolam 0.25 MG TAB PO PRN (12:00)
[2018-10-31] MEDS ORDERED: ALPRAZolam 0.25 MG TAB PO ONE (12:00)
[2018-10-31 14:00] VITALS: BP 138/82
[2018-10-31] MEDS: RIVAROXABAN 10 MG TAB (XARELTO) PO SCH (16:54)
[2018-10-31] MEDS ORDERED: VANCOMYCIN HCL 1,000 MG, VIAL MATE ADAPTER 1 EACH in D5W 250 ML IV ONE ×2 (17:00→18:00)
[2018-10-31] MEDS ORDERED: NON-FORMULARY 1 EA EA INH SCH (17:00)
[2018-10-31] MEDS: BREO ELLIPTA INH SCH (17:22)
[2018-10-31] MEDS ORDERED: dexameTHASONE 4 MG/ML 1ML VIAL (J1100) IV SCH (20:00)
[2018-10-31] MEDS: SIMVASTATIN 20 MG TAB PO SCH (20:28)
[2018-10-31] MEDS: SENNA 8.6 MG TAB (SENOKOT) PO SCH (20:28)
[2018-10-31] MEDS: traZODone 50 MG TAB PO SCH (20:28)
[2018-10-31 22:00] VITALS: BP 130/90
[2018-11-01] MEDS: PERCOCET 5MG/325MG TAB PO PRN ×5 (00:08→23:15)
[2018-11-01] MEDS: dexameTHASONE 20 MG/5 ML VIAL (J1100) IV SCH ×3 (01:52→16:32)
[2018-11-01] MEDS: LEVALBUTEROL 1.25 MG/0.5 ML CONCENTRATE NEB NEB SCH ×6 (03:06→22:56)
[2018-11-01] MEDS: DOXYCYCLINE HYCLATE 100 MG in D5W MINI-BAG PLUS 100 ML IV SCH ×2 (03:38→16:31)
[2018-11-01 06:00] VITALS: BP 146/90
[2018-11-01] MEDS ORDERED: NON-FORMULARY 1 EA EA NEB SCH (09:00)
[2018-11-01] MEDS ORDERED: PNEUMOCOCCAL VACCINE 0.5ML SYRINGE(90732) PNEUMOVAX 23 IM ONE (09:00)
[2018-11-01] MEDS: OMEPRAZOLE 20 MG CAP PO SCH ×2 (09:28→20:32)
[2018-11-01] MEDS: MIDODRINE 5 MG TAB PO SCH ×2 (09:28→16:33)
[2018-11-01] MEDS: VITAMIN D 1,000 INTERNATIONAL UNITS TABLET PO SCH (09:29)
[2018-11-01] MEDS: SPIRONOLACTONE 25 MG TAB PO SCH ×2 (09:29→16:32)
[2018-11-01] MEDS: FERROUS SULFATE 325MG TAB PO SCH (09:29)
[2018-11-01] MEDS: TORSEMIDE 20 MG TAB PO SCH (09:29)
[2018-11-01] MEDS: rOPINIRole 2MG TAB PO SCH ×2 (09:29→20:32)
[2018-11-01] MEDS: FOLIC ACID 1 MG TAB PO SCH (09:29)
[2018-11-01] MEDS: ASPIRIN 81 MG ENTERIC TAB PO SCH (09:29)
[2018-11-01] MEDS: ALPRAZolam 0.5 MG TAB PO SCH ×2 (09:29→20:33)
[2018-11-01] MEDS: ESCITALOPRAM OXALATE 10 MG TAB (LEXAPRO) PO SCH (09:29)
--- NOTE | 2018-11-01 13:46 | IPNPDOC ---
Date Seen The patient was seen on 11/01/18. Progress Note SUBJECTIVE: s/p one dose iv vanco 10/31/18 for one set of blood cx: gram positive cocci. pt has remained afebrile without chills, dysuria, urgency. repeat blood cx pending x 2 sets. Pt's restless legs is improved on ropinorole. still sob. PATEL. no chest pain, , pressure, palpitations, lightheadedness. PHYSICAL EXAMINATION: VITALS: pls see below General: Patient is sitting in bed and is in no acute respiratory distress and is able to speak in complete sentences and is not using any accessory muscles for respiration. HEENT: Normocephalic, atraumatic. Mucous membranes are moist. Neck is supple. Trachea is midline. No palpable adenopathy, but some tenderness to palpation in the superficial cervical lymph nodes. Cardiac: Difficult to auscultate, but regular S1 and S2 and no murmurs appreciated. Pulmonary: Some diminished breath sounds bilaterally with coarse wheezes and rhonchi. Abdomen is obese and soft. No palpable masses. Nontender to palpation. Extremities: There is some trace lower extremity bilaterally and some well healed scars in the lower extremity. LABORATORY DATA, IMAGING STUDIES, MICROBIOLOGY: PLS SEE BELOW ASSESSMENT/PLAN: 58-year-old female with a past medical history significant for chronic obstructive pulmonary disease (COPD) with chronic hypoxemic respiratory failure on 2 liters nasal cannula oxygen, history of deep vein thrombosis (DVT)/pulmonary embolism (PE) on Xarelto,coronary artery disease, hypertension, gastroesophageal reflux disease, anxiety, congestive heart failure with preserved Ejection Fraction, pulmonary hypertension, and orthostatic hypotension, s/p Daliresp with side effects of insomnia and mood changes, pres ented to the ER with c/o worsening sob for the past few days despite nebs q4hrs and breo-ellipta. she denies any fevers, chills. no cough. She denies any chest pain,pressure, tightness, lightheadedness, or any recent sick contacts. She c/o increasing PATEL and slight weight gain, and has been unable to ambulate 15-20 feet at home. She is compliant with her xarelto. In the ER, pt was found to be wheezing. CXR: no infiltrate. Hospitalist was called to admit. Acute exacerbation of COPD with chronic hypoxemic respiratory failure on nasal cannula oxygen supplementation. She did not have any evidence of infiltrates on her chest x-ray, there was hyperinflation noted only. Her respiratory panel was negative. The patient is on dexamethasone due to allergy to solumedrol for her COPD exacerbation as well as with doxycycline. She is also xopenex [id number] due to tachycardia with albuterol. The patient reported some slight improvement, however, she continues to report a cough with difficult to expectorate sputum. Therefore, will trial her on Mucomyst nebulizers to be given with albuterol twice a day and to be used with an Acapella device after the Mucomyst treatment to see if she has improved pulmonary toilet and mucus clearance. Otherwise, will continue with her steroids and with doxycycline. She will likely need a prolonged taper of steroids. Continue with her DuoNeb treatments. The patient has a history of frequent recurrent COPD exacerbations. She had previously been tried on Daliresp as an outpatient, but was unable to tolerate it and refused to continue using it due to the side effects. Blood culture (+) gram positive cocci s/p one dose iv vanco 10/31/18 for one set of blood cx: gram positive cocci. pt has remained afebrile without chills, dysuria, urgency. repeat blood cx pending x 2 sets. Probable obstructive sleep apnea oupt fu w her supervising fire marshal for sleep study Restless Legs Syndrome ropinorole DVT and PE on Xarelto. compliant with meds Iron deficiency anemia chronic no acute indication for rbc transfusion CAD. no acute ischemia Hypertension. controlled Gastroesophageal reflux disease. chronic Anxiety. chronic Chronic pain and degenerative joint disease. CHF with preserved EF strict i/o monitor urine output Pulmonary hypertension. complicating care Obesity BMI 38.9 complicating care Continue DVT prophylaxis with full anticoagulation with the Xarelto. A-FIB/CHADSVASC A-FIB History Current/History of A-Fib/PAF?: No Current Oral Anticoagulant The: No VS, I&O, 24H, Fishbone Vital Signs/I&O Vital Signs Date Time Temp Pulse Resp B/P (MAP) Pulse Ox O2 Delivery O2 Flow Rate FiO2 11/01/18 12:21 20 11/01/18 09:00 2.0 11/01/18 06:00 96.9 89 146/90 (108) 95 10/31/18 20:12 Nasal Cannula I&O- Last 24 Hours up to 6 AM 11/01/18 06:00 Intake Total 1300 ml Output Total 500 ml Balance 800 ml Laboratory Data 24H LABS Laboratory Tests 2 10/31/18 16:37: C-Reactive Protein, Quantitative 1.24H 10/31/18 16:38: Erythrocyte Sedimentation Rate 63H Microbiology Microbiology 10/31/18 Blood Culture, Received Pending 10/31/18 Blood Culture, Received Pending 10/30/18 Blood Culture - Preliminary, Resulted No Growth after 48 hours. All Specime... 10/30/18 Blood Culture - Preliminary, Resulted 10/31/18 Gram Stain - Final, Resulted 10/31/18 Sputum Culture, Resulted Pending 10/30/18 MRSA Screen - Final, Complete 10/30/18 Respiratory Virus Panel (PCR) ([facility]) - Final, Complete PORTIA QUIROZ MD November 01, 2018 13:46
[2018-11-01 14:00] VITALS: BP 140/89
[2018-11-01 14:31] LABS: HEMATOCRIT 37.2 % (36.0-47.0); HEMOGLOBIN 11.2 g/dl (12.0-15.5); LYMPH # 0.5 10^3/uL (1.5-4.5); LYMPH % 5.2 % (24.0-44.0); MEAN CORPUSCULAR HEMOGLOBIN 28.3 pg (27.0-33.0); MEAN CORPUSCULAR HGB CONC 30.1 g/dl (32.0-36.5); MEAN CORPUSCULAR VOLUME 93.9 fl (80.0-96.0); MONO # 0.3 10^3/uL (0.0-0.8); MONO % 2.8 % (0.0-5.0); NEUTROPHILS % 91.2 % (36.0-66.0); PLATELET COUNT, AUTOMATED 235 10^3/uL (150-450); RED BLOOD COUNT 3.96 10^6/uL (4.00-5.40); WHITE BLOOD COUNT 9.9 10^3/uL (4.0-10.0)
[2018-11-01 14:54] LABS: ERYTHROCYTE SEDIMENTATION RATE 57 mm/hr (0-30)
[2018-11-01 15:07] LABS: BLOOD UREA NITROGEN 25 MG/DL (7-18); CARBON DIOXIDE LEVEL 36 MEQ/L (21-32); CHLORIDE LEVEL 99 MEQ/L (98-107); CREATININE FOR GFR 0.95 MG/DL (0.55-1.30); GLOMERULAR FILTRATION RATE > 60.0 (>45); GLUCOSE, FASTING 149 MG/DL (70-100); POTASSIUM SERUM 4.5 MEQ/L (3.5-5.1); SODIUM LEVEL 138 MEQ/L (136-145)
[2018-11-01] MEDS: RIVAROXABAN 10 MG TAB (XARELTO) PO SCH (16:32)
[2018-11-01] MEDS: BREO ELLIPTA INH SCH (17:34)
[2018-11-01] MEDS: LEVALBUTEROL 1.25 MG/0.5 ML CONCENTRATE NEB NEB PRN (18:05)
[2018-11-01] MEDS: SENNA 8.6 MG TAB (SENOKOT) PO SCH (20:32)
[2018-11-01] MEDS: traZODone 50 MG TAB PO SCH (20:32)
[2018-11-01] MEDS: SIMVASTATIN 20 MG TAB PO SCH (20:32)
[2018-11-01] MEDS: NYSTATIN 100,000 UNITS/GM TOPICAL PWD 15 GM TOP PRN (20:33)
[2018-11-01 22:00] VITALS: BP 140/73
[2018-11-02] MEDS: dexameTHASONE 20 MG/5 ML VIAL (J1100) IV SCH ×3 (01:14→18:31)
[2018-11-02] MEDS: DOXYCYCLINE HYCLATE 100 MG in D5W MINI-BAG PLUS 100 ML IV SCH ×2 (03:04→15:58)
[2018-11-02] MEDS: LEVALBUTEROL 1.25 MG/0.5 ML CONCENTRATE NEB NEB SCH ×5 (04:00→21:49)
[2018-11-02 06:00] VITALS: BP 157/98
[2018-11-02] MEDS: PERCOCET 5MG/325MG TAB PO PRN ×5 (06:04→22:52)
[2018-11-02 07:56] LABS: ABG BASE EXCESS 8.3 (-2.0-2.0); ABG HCO3 36.8 MEQ/L (22.0-26.0); ABG O2 SATURATION 97.8 % (95.0-99.0); ABG PARTIAL PRESSURE O2 103.4 mmHg (75.0-100.0); ABG STANDARD HCO3 32.1 MEQ/L (22.0-26.0); ABG pH (ARTERIAL) 7.324 UNITS (7.350-7.450)
[2018-11-02 07:57] LABS: ABG PARTIAL PRESSURE CO2 72.3 mmHg (35.0-45.0)
[2018-11-02 09:30] VITALS: BP 121/68
[2018-11-02] MEDS: MIDODRINE 5 MG TAB PO SCH ×2 (10:19→15:58)
[2018-11-02] MEDS: SPIRONOLACTONE 25 MG TAB PO SCH ×2 (11:03→16:02)
[2018-11-02] MEDS: ALPRAZolam 0.5 MG TAB PO SCH ×2 (11:03→20:13)
[2018-11-02] MEDS: FOLIC ACID 1 MG TAB PO SCH (11:04)
[2018-11-02] MEDS: ESCITALOPRAM OXALATE 10 MG TAB (LEXAPRO) PO SCH (11:04)
[2018-11-02] MEDS: OMEPRAZOLE 20 MG CAP PO SCH ×2 (11:05→20:13)
[2018-11-02] MEDS: TORSEMIDE 20 MG TAB PO SCH (11:06)
[2018-11-02] MEDS: FERROUS SULFATE 325MG TAB PO SCH (11:06)
[2018-11-02] MEDS: ASPIRIN 81 MG ENTERIC TAB PO SCH (11:06)
[2018-11-02] MEDS: VITAMIN D 1,000 INTERNATIONAL UNITS TABLET PO SCH (11:06)
[2018-11-02 11:51] LABS: ABG BASE EXCESS 6.7 (-2.0-2.0); ABG HCO3 32.3 MEQ/L (22.0-26.0); ABG O2 SATURATION 97.8 % (95.0-99.0); ABG PARTIAL PRESSURE CO2 51.2 mmHg (35.0-45.0); ABG PARTIAL PRESSURE O2 92.1 mmHg (75.0-100.0); ABG STANDARD HCO3 30.5 MEQ/L (22.0-26.0); ABG TOTAL CO2 33.9 MEQ/L (23.0-31.0); ABG pH (ARTERIAL) 7.418 UNITS (7.350-7.450)
[2018-11-02] MEDS ORDERED: rOPINIRole 0.25 MG TAB(REQUIP) PO ONE (12:45)
[2018-11-02] MEDS ORDERED: ACETAMINOPHEN TAB 650MG DOSE (2X325MG) PO PRN (13:00)
[2018-11-02] MEDS ORDERED: ACETAMINOPHEN 500 MG TAB PO ONE (13:00)
[2018-11-02 13:21] LABS: FERRITIN 33 NG/ML (8-252); IRON (FE) 76 UG/DL (50-170); PERCENT SATURATION 18.4 % (13.2-45.0); TOTAL IRON BINDING CAPACITY 414 UG/DL (250-450)
--- NOTE | 2018-11-02 13:21 | IPNPDOC ---
Date Seen The patient was seen on 11/02/18. Progress Note SUBJECTIVE: Pt was noted to be lethargic. ab.32/72. trazodone and ropinirole were discontinued with co2 improving on repeat abg. pt requesting something for sleep,"maybe even some melatonin, doctor." Pt also c/o right foot pain with no recollection of any trauma at home. PHYSICAL EXAMINATION: VITALS: pls see below General: Patient is sitting in bed and is in no acute respiratory distress and is able to speak in complete sentences and is not using any accessory muscles for respiration. lethargic unable to keep her eyes open when conversing. HEENT: Normocephalic, atraumatic. Mucous membranes are moist. Neck is supple. Trachea is midline. No palpable adenopathy, but some tenderness to palpation in the superficial cervical lymph nodes. Cardiac: Difficult to auscultate, but regular S1 and S2 and no murmurs appreciated. Pulmonary: Some diminished breath sounds bilaterally with coarse wheezes and rhonchi. Abdomen is obese and soft. No palpable masses. Nontender to palpation. Extremities: There is some trace lower extremity bilaterally and some well healed scars in the lower extremity. right dorsal 1 1cm bruises. LABORATORY DATA, IMAGING STUDIES, MICROBIOLOGY: PLS SEE BELOW ASSESSMENT/PLAN: 58-year-old female with a past medical history significant for chronic obstructive pulmonary disease (COPD) with chronic hypoxemic respiratory failure on 2 liters nasal cannula oxygen, history of deep vein thrombosis (DVT)/pulmonary embolism (PE) on Xarelto,coronary artery disease, hypertension, gastroesophageal reflux disease, anxiety, congestive heart failure with preserved Ejection Fraction, pulmonary hypertension, and orthostatic hypotension, s/p Daliresp with side effects of insomnia and mood changes, presented to the ER with c/o worsening sob for the past few days despite nebs q4hrs and breo-ellipta. she denies any fevers, chills. no cough. She denies any chest pain,pressure, tightness, lightheadedness, or any recent sick contacts. She c/o increasing PATEL and slight weight gain, and has been unable to ambulate 15-20 feet at home. She is compliant with her xarelto. In the ER, pt was found to be wheezing. CXR: no infiltrate. Hospitalist was called to admit. Acute exacerbation of COPD with chronic hypoxemic respiratory failure on nasal cannula oxygen supplementation. She did not have any evidence of infiltrates on her chest x-ray, there was hyperinflation noted only. Her respiratory panel was negative. The patient is on dexamethasone due to allergy to solumedrol for her COPD exacerbation as well as with doxycycline. She is also xopenex [id number] due to tachycardia with albuterol. The patient reported some slight improvement, however, she continues to report a cough with difficult to expectorate sputum. Therefore, will trial her on Mucomyst nebulizers to be given with albuterol twice a day and to be used with an Acapella device after the Mucomyst treatment to see if she has improved pulmonary toilet and mucus clearance. Otherwise, will continue with her steroids and with doxycycline. She will likely need a prolon ged taper of steroids. Continue with her DuoNeb treatments. The patient has a history of frequent recurrent COPD exacerbations. She had previously been tried on Daliresp as an outpatient, but was unable to tolerate it and refused to continue using it due to the side effects. Acute encephalopathy due to respiratory acidosis trazodone and ropinorole discontinued Right foot pain xray contaminated Blood culture (+) gram positive cocci s/p one dose iv vanco 10/31/18 for one set of blood cx: gram positive cocci, staph capitis. pt has remained afebrile without chills, dysuria, urgency. repeat blood cx pending final report Probable obstructive sleep apnea oupt fu w her machine bunch maker for sleep study Restless Legs Syndrome ropinorole DVT and PE on Xarelto. compliant with meds Iron deficiency anemia chronic no acute indication for rbc transfusion CAD. no acute ischemia Hypertension. controlled Gastroesophageal reflux disease. chronic Anxiety. chronic Chronic pain and degenerative joint disease. CHF with preserved EF strict i/o monitor urine output Pulmonary hypertension. complicating care Obesity BMI 38.9 complicating care Continue DVT prophylaxis with full anticoagulation with the Xarelto. A-FIB/CHADSVASC A-FIB History Current/History of A-Fib/PAF?: No Current Oral Anticoagulant The: No VS, I&O, 24H, Fishbone Vital Signs/I&O Vital Signs Date Time Temp Pulse Resp B/P (MAP) Pulse Ox O2 Delivery O2 Flow Rate FiO2 5/18/19 11:22 20 2.0 11/02/18 11:13 102 11/02/18 09:30 97.6 121/68 (85) 96 10/31/18 20:12 Nasal Cannula I&O- Last 24 Hours up to 6 AM 11/02/18 06:00 Intake Total 1195 ml Output Total 275 ml Balance 920 ml Laboratory Data 24H LABS Laboratory Tests 2 11/01/18 14:14: Immature Granulocyte % (Auto) 0.8, White Blood Count 9.9, Red Blood Count 3.96L, Hemoglobin 11.2L, Hematocrit 37.2, Mean Corpuscular Volume 93.9, Mean Corpuscular Hemoglobin 28.3, Mean Corpuscular Hemoglobin Concent 30.1L, Red Cell Distribution Width 14.6H, Platelet Count 235, Neutrophils (%) (Auto) 91.2H, Lymphocytes (%) (Auto) 5.2L, Monocytes (%) (Auto) 2.8, Eosinophils (%) (Auto) 0.0, Basophils (%) (Auto) 0.0, Neutrophils # (Auto) 9.0H, Lymphocytes # (Auto) 0.5L, Monocytes # (Auto) 0.3, Eosinophils # (Auto) 0.0, Basophils # (Auto) 0.0, Nucleated Red Blood Cells % (auto) 0.0, Erythrocyte Sedimentation Rate 57H, Anion Gap 3L, Glomerular Filtration Rate > 60.0, Blood Urea Nitrogen 25#H, Creatinine 0.95, Sodium Level 138, Potassium Level 4.5, Chloride Level 99, Carbon Dioxide Level 36H, Calcium Level 9.0, C-Reactive Protein, Quantitative 0.60H 11/02/18 07:41: Blood Gas Bicarbonate Standard 32.1H, Arterial Blood pH 7.324L, Arterial Blood Partial Pressure CO2 72.3*H, Arterial Blood Partial Pressure O2 103.4H, Arterial Blood Total CO2 39.0H, Arterial Blood HCO3 36.8H, Arterial Blood Base Excess 8.3H, Arterial Blood Oxygen Saturation 97.8 11/02/18 11:43: Blood Gas Bicarbonate Standard 30.5H, Arterial Blood pH 7.418, Arterial Blood Partial Pressure CO2 51.2H, Arterial Blood Partial Pressure O2 92.1, Arterial Blood Total CO2 33.9H, Arterial Blood HCO3 32.3H, Arterial Blood Base Excess 6.7H, Arterial Blood Oxygen Saturation 97.8 CBC/BMP Laboratory Tests 11/01/18 14:14 Red Blood Count 3.96 L, Mean Corpuscular Volume 93.9, Mean Corpuscular Hemoglo bin 28.3, Mean Corpuscular Hemoglobin Concent 30.1 L, Red Cell Distribution Width 14.6 H, Neutrophils (%) (Auto) 91.2 H, Lymphocytes (%) (Auto) 5.2 L, Monocytes (%) (Auto) 2.8, Eosinophils (%) (Auto) 0.0, Basophils (%) (Auto) 0.0, Neutrophils # (Auto) 9.0 H, Lymphocytes # (Auto) 0.5 L, Monocytes # (Auto) 0.3, Eosinophils # (Auto) 0.0, Basophils # (Auto) 0.0, Calcium Level 9.0 Microbiology Microbiology 10/31/18 Blood Culture - Preliminary, Resulted No growth after 24 hours . All specim... 10/31/18 Blood Culture - Preliminary, Resulted No growth after 24 hours . All specim... 10/30/18 Blood Culture - Preliminary, Resulted No Growth after 48 hours. All Specime... 10/30/18 Blood Culture - Final, Complete Staphylococcus Capitis 10/31/18 Gram Stain - Final, Resulted 10/31/18 Sputum Culture - Preliminary, Resulted Staphylococcus Aureus 10/30/18 MRSA Screen - Final, Complete 10/30/18 Respiratory Virus Panel (PCR) ([facility]) - Final, Complete PORTIA QUIROZ MD November 02, 2018 13:21
[2018-11-02 14:00] VITALS: BP 145/65
--- NOTE | 2018-11-02 14:33 | REP ---
HISTORY: Foot pain. No history of trauma. COMPARISON: None. The bones are demineralized. Degenerative change is seen throughout the foot. There is a plantar calcaneal heel spur. Hammer toe deformities are suspected involving multiple digits. There is no evidence of an acute fracture. IMPRESSION: Chronic changes as described above. Electronically Signed by Tr Chirinos DO 11/02/2018 03:38 P
[2018-11-02] MEDS: BREO ELLIPTA INH SCH (17:00)
[2018-11-02] MEDS: RIVAROXABAN 10 MG TAB (XARELTO) PO SCH (18:31)
[2018-11-02] MEDS: SENNA 8.6 MG TAB (SENOKOT) PO SCH (20:13)
[2018-11-02] MEDS: SIMVASTATIN 20 MG TAB PO SCH (20:13)
[2018-11-02 22:00] VITALS: BP 132/77
[2018-11-03] MEDS: LEVALBUTEROL 1.25 MG/0.5 ML CONCENTRATE NEB NEB SCH ×7 (00:05→23:35)
[2018-11-03] MEDS: dexameTHASONE 20 MG/5 ML VIAL (J1100) IV SCH ×3 (01:40→17:50)
[2018-11-03] MEDS: PERCOCET 5MG/325MG TAB PO PRN ×5 (02:54→21:00)
[2018-11-03] MEDS: DOXYCYCLINE HYCLATE 100 MG in D5W MINI-BAG PLUS 100 ML IV SCH ×2 (03:02→16:31)
[2018-11-03 06:00] VITALS: BP 137/76
[2018-11-03 06:05] LABS: BASO % 0.2 % (0.0-1.0); HEMATOCRIT 36.9 % (36.0-47.0); LYMPH # 0.5 10^3/uL (1.5-4.5); LYMPH % 8.1 % (24.0-44.0); MEAN CORPUSCULAR HEMOGLOBIN 28.3 pg (27.0-33.0); MEAN CORPUSCULAR HGB CONC 29.8 g/dl (32.0-36.5); MEAN CORPUSCULAR VOLUME 94.9 fl (80.0-96.0); MONO # 0.2 10^3/uL (0.0-0.8); MONO % 2.6 % (0.0-5.0); NEUTROPHILS # 5.5 10^3/uL (1.8-7.7); NEUTROPHILS % 87.7 % (36.0-66.0); PLATELET COUNT, AUTOMATED 195 10^3/uL (150-450); RED BLOOD COUNT 3.89 10^6/uL (4.00-5.40); WHITE BLOOD COUNT 6.2 10^3/uL (4.0-10.0)
[2018-11-03 06:14] LABS: BLOOD UREA NITROGEN 29 MG/DL (7-18); CALCIUM LEVEL 9.2 MG/DL (8.8-10.2); CARBON DIOXIDE LEVEL 35 MEQ/L (21-32); CHLORIDE LEVEL 101 MEQ/L (98-107); CREATININE FOR GFR 0.88 MG/DL (0.55-1.30); GLOMERULAR FILTRATION RATE > 60.0 (>45); GLUCOSE, FASTING 137 MG/DL (70-100); POTASSIUM SERUM 4.4 MEQ/L (3.5-5.1); SODIUM LEVEL 138 MEQ/L (136-145)
[2018-11-03] MEDS: MIDODRINE 5 MG TAB PO SCH ×2 (07:50→16:30)
[2018-11-03] MEDS: TORSEMIDE 20 MG TAB PO SCH (07:50)
[2018-11-03] MEDS: FOLIC ACID 1 MG TAB PO SCH (07:50)
[2018-11-03] MEDS: FERROUS SULFATE 325MG TAB PO SCH (07:50)
[2018-11-03] MEDS: OMEPRAZOLE 20 MG CAP PO SCH ×2 (07:51→20:04)
[2018-11-03] MEDS: ALPRAZolam 0.5 MG TAB PO SCH (07:51)
[2018-11-03] MEDS: ASPIRIN 81 MG ENTERIC TAB PO SCH (07:51)
[2018-11-03] MEDS: SPIRONOLACTONE 25 MG TAB PO SCH ×2 (07:51→16:30)
[2018-11-03] MEDS: VITAMIN D 1,000 INTERNATIONAL UNITS TABLET PO SCH (07:51)
[2018-11-03] MEDS: ESCITALOPRAM OXALATE 10 MG TAB (LEXAPRO) PO SCH (07:52)
[2018-11-03] MEDS ORDERED: rOPINIRole 0.25 MG TAB(REQUIP) PO PRN (10:45)
[2018-11-03] MEDS ORDERED: rOPINIRole 0.25 MG TAB(REQUIP) PO ONE (11:00)
[2018-11-03] MEDS: ALPRAZolam 0.25 MG TAB PO PRN ×2 (11:07→17:50)
[2018-11-03 14:00] VITALS: BP 132/90
[2018-11-03] MEDS: BREO ELLIPTA INH SCH (17:19)
[2018-11-03] MEDS: RIVAROXABAN 10 MG TAB (XARELTO) PO SCH (17:50)
[2018-11-03] MEDS: SIMVASTATIN 20 MG TAB PO SCH (20:03)
[2018-11-03] MEDS: SENNA 8.6 MG TAB (SENOKOT) PO SCH (20:04)
[2018-11-03 22:00] VITALS: BP 166/76
[2018-11-04] MEDS: dexameTHASONE 20 MG/5 ML VIAL (J1100) IV SCH (02:13)
[2018-11-04] MEDS: PERCOCET 5MG/325MG TAB PO PRN ×5 (02:15→22:00)
[2018-11-04] MEDS: LEVALBUTEROL 1.25 MG/0.5 ML CONCENTRATE NEB NEB SCH ×6 (04:03→23:50)
[2018-11-04] MEDS: DOXYCYCLINE HYCLATE 100 MG in D5W MINI-BAG PLUS 100 ML IV SCH ×2 (04:34→16:22)
[2018-11-04 06:00] VITALS: BP 169/86
--- NOTE | 2018-11-04 06:36 | IPNPDOC ---
Date Seen The patient was seen on 11/03/18. Progress Note SUBJECTIVE: With daughter at the bedside, pt asks, "You're gonna give me my xanax and trazodone , right" Pt is much more awake today, and c/o pain in the right foot, and unchanged SOB. Per Respiratory therapist, pt may benefit from acapella with nebs to improve her ability to expectorate. Pt was noted to be lethargic 11/02/18 ab.32/72. trazodone and ropinirole were discontinued with co2 improving on repeat abg. Per Dr. Romero, pulmolonogist chief construction inspector, if repeat abg pH<7.3 with ongoing lethargy, may need bipap to reverse hypercarbia. Yesterday, despite having discussion about medication-induced respiratory acidosis, pt was insistent that her sedative meds be resumed. pt wa requesting something for sleep,"maybe even some melatonin, doctor." Pt also c/o right foot pain with no recollection of any trauma at home. Xray of the right foot: OA,chronic. PHYSICAL EXAMINATION: VITALS: pls see below General: Patient is sitting in bed and is in no acute respiratory distress and is able to speak in complete sentences and is not using any accessory muscles for respiration. lethargic unable to keep her eyes open when conversing. HEENT: Normocephalic, atraumatic. Mucous membranes are moist. Neck is supple. Trachea is midline. No palpable adenopathy, but some tenderness to palpation in the superficial cervical lymph nodes. Cardiac: Difficult to auscultate, but regular S1 and S2 and no murmurs appreciated. Pulmonary: Some diminished breath sounds bilaterally with coarse wheezes and rhonchi. Abdomen is obese and soft. No palpable masses. Nontender to palpation. Extremities: There is some trace lower extremity bilaterally and some well healed scars in the lower extremity. right dorsal 1 1cm bruises. LABORATORY DATA, IMAGING STUDIES, MICROBIOLOGY: PLS SEE BELOW ASSESSMENT/PLAN: 58-year-old female with a past medical history significant for chronic obstructive pulmonary disease (COPD) with chronic hypoxemic respiratory failure on 2 liters nasal cannula oxygen, history of deep vein thrombosis (DVT)/pulmonary embolism (PE) on Xarelto,coronary artery disease, hypertension, gastroesophageal reflux disease, anxiety, congestive heart failure with preserved Ejection Fraction, pulmonary hypertension, and orthostatic hypotension, s/p Daliresp with side effects of insomnia and mood changes, presented to the ER with c/o worsening sob for the past few days despite nebs q4hrs and breo-ellipta. she denies any fevers, chills. no cough. She denies any chest pain,pressure, tightness, lightheadedness, or any recent sick contacts. She c/o increasing PATEL and slight weight gain, and has been unable to ambulate 15-20 feet at home. She is compliant with her xarelto. In the ER, pt was found to be wheezing. CXR: no infiltrate. Hospitalist was called to admit. Acute exacerbation of COPD with chronic hypoxemic respiratory failure on nasal cannula oxygen supplementation. She did not have any evidence of infiltrates on her chest x-ray, there was hyperinflation noted only. Her respiratory panel was negative. The patient is on dexamethasone due to allergy to solumedrol for her COPD exacerbation as well as with doxycycline. She is also xopenex [id number] due to tachycardia with albuterol. The patient reported some slight improvement, however, she continues to report a cough with difficult to expectorate sputum. Therefore, will trial her on Mucomyst nebulizers to be given with albuterol twice a day and to be used with an Acapella device after the Mucomyst treatment to see if she has improved pulmonary toilet and mucus clearance. Otherwise, will continue with her steroids and with doxycycline. She will likely need a prolonged taper of steroids. Continue with her DuoNeb treatments. The patient has a history of frequent recurrent COPD exacerbations. She had previously been tried on Daliresp as an outpatient, but was unable to tolerate i t and refused to continue using it due to the side effects. acapella Pt was noted to be lethargic 11/02/18 ab.32/72. trazodone and ropinirole were discontinued with co2 improving on repeat abg. Per Dr. Romero, pulmolonogist chief construction inspector, if repeat abg pH<7.3 with ongoing lethargy, may need bipap to reverse hypercarbia. Yesterday, despite having discussion about medication-induced respiratory acidosis, pt was insistent that her sedative meds be resumed. pt wa requesting something for sleep,"maybe even some melatonin, doctor." Acute encephalopathy due to respiratory acidosis trazodone and ropinorole discontinued Pt was noted to be lethargic 11/02/18 ab.32/72. trazodone and ropinirole were discontinued with co2 improving on repeat abg. Per Dr. Romero, pulmolonogist chief construction inspector, if repeat abg pH<7.3 with ongoing lethargy, may need bipap to reverse hypercarbia. Yesterday, despite having discussion about medication-induced respiratory acidosis, pt was insistent that her sedative meds be resumed. pt wa requesting something for sleep,"maybe even some melatonin, doctor." Right foot pain Pt also c/o right foot pain with no recollection of any trauma at home. Xray of the right foot: OA,chronic. contaminated Blood culture (+) gram positive cocci s/p one dose iv vanco 10/31/18 for one set of blood cx: gram positive cocci, staph capitis. pt has remained afebrile without chills, dysuria, urgency. repeat blood cx pending final report Probable obstructive sleep apnea oupt fu w her wash driller helper for sleep study Restless Legs Syndrome ropinorole DVT and PE on Xarelto. compliant with meds Iron deficiency anemia chronic no acute indication for rbc transfusion CAD. no acute ischemia Hypertension. controlled Gastroesophageal reflux disease. chronic Anxiety. chronic Chronic pain and degenerative joint disease. CHF with preserved EF strict i/o monitor urine output Pulmonary hypertension. complicating care Obesity BMI 38.9 complicating care Continue DVT prophylaxis with full anticoagulation with the Xarelto. A-FIB/CHADSVASC A-FIB History Current/History of A-Fib/PAF?: No Current Oral Anticoagulant The: No VS, I&O, 24H, Fishbone Vital Signs/I&O Vital Signs Date Time Temp Pulse Resp B/P (MAP) Pulse Ox O2 Delivery O2 Flow Rate FiO2 11/03/18 07:50 18 1.0 11/03/18 07:20 90 11/03/18 06:00 98.2 137/76 (96) 93 10/31/18 20:12 Nasal Cannula I&O- Last 24 Hours up to 6 AM 11/03/18 06:00 Intake Total 1960 ml Output Total 550 ml Balance 1410 ml Laboratory Data 24H LABS Laboratory Tests 2 11/02/18 11:43: Blood Gas Bicarbonate Standard 30.5H, Arterial Blood pH 7.418, Arterial Blood Partial Pressure CO2 51.2H, Arterial Blood Partial Pressure O2 92.1, Arterial Blood Total CO2 33.9H, Arterial Blood HCO3 32.3H, Arterial Blood Base Excess 6.7H, Arterial Blood Oxygen Saturation 97.8 11/03/18 05:36: Immature Granulocyte % (Auto) 1.4, White Blood Count 6.2, Red Blood Count 3.89L, Hemoglobin 11.0L, Hematocrit 36.9, Mean Corpuscular Volume 94.9, Mean Corpuscular Hemoglobin 28.3, Mean Corpuscular Hemoglobin Concent 29.8L, Red Cell Distribution Width 14.6H, Platelet Count 195, Neutrophils (%) (Auto) 87.7H, Lymphocytes (%) (Auto) 8.1L, Monocytes (%) (Auto) 2.6, Eosinophils (%) (Auto) 0.0, Basophils (%) (Auto) 0.2, Neutrophils # (Auto) 5.5, Lymphocytes # (Auto) 0.5L, Monocytes # (Auto) 0.2, Eosinophils # (Auto) 0.0, Basophils # (Auto) 0.0, Nucleated Red Blood Cells % (auto) 0.0, Anion Gap 2L, Glomerular Filtration Rate > 60.0, Blood Urea Nitrogen 29H, Creatinine 0.88, Sodium Level 138, Potassium Level 4.4, Chloride Level 101, Carbon Dioxide Level 35H, Calcium Level 9.2 CBC/BMP Laboratory Tests 11/03/18 05:36 Red Blood Count 3.89 L, Mean Corpuscular Volume 94.9, Mean Corpuscular Hemoglobin 28.3, Mean Corpuscular Hemoglobin Concent 29.8 L, Red Cell Distribution Width 14.6 H, Neutrophils (%) (Auto) 87.7 H, Lymphocytes (%) (Auto) 8.1 L, Monocytes (%) (Auto) 2.6, Eosinophils (%) (Auto) 0.0, Basophils (%) (Auto) 0.2, Neutrophils # (Auto) 5.5, Lymphocytes # (Auto) 0.5 L, Monocytes # (Auto) 0.2, Eosinophils # (Auto) 0.0, Basophils # (Auto) 0.0, Calcium Level 9.2 Microbiology Microbiology 10/31/18 Blood Culture - Preliminary, Resulted No Growth after 48 hours. All Specime... 10/31/18 Blood Culture - Preliminary, Resulted No Growth after 48 hours. All Specime... 10/30/18 Blood Culture - Preliminary, Resulted No Growth after 72 hours. All specime... 10/30/18 Blood Culture - Final, Complete Staphylococcus Capitis 10/31/18 Gram Stain - Final, Complete 10/31/18 Sputum Culture - Final, Complete Staphylococcus Aureus 10/30/18 MRSA Screen - Final, Complete 10/30/18 Respiratory Virus Panel (PCR) ([facility]) - Final, Complete PORTIA QUIROZ MD November 03, 2018 09:17
--- NOTE | 2018-11-04 06:41 | IPNPDOC ---
Date Seen The patient was seen on 11/04/18. Progress Note SUBJECTIVE: Patient is insistent on getting more sedatives despite persistent urging that these can cause her to have worsening respiratory acidosis which can cause sedation, obtundation, and eventually respiratory failure that could lead to . "Well, I don't want to , but I want my meds." She does not fully recognize that with her inability to ventilate well with little respiratory effort, coupled with her COPD, adding sedatives such as trazodone and opioids will weaken her reserve to blow off her carbon dioxide, leaving her vulnerable to respiratory failure. Her family does not enforce this recommendation, and continues to support the patient in her requests for medications. Yesterday, With daughter at the bedside, pt asks, "You're gonna give me my xanax and trazodone , right? as much as I want, right? I know I can't breathe and I doze off sometimes, but I can have them back, right?" Pt is much more awake today, and c/o pain in the right foot, and unchanged SOB. Per Respiratory therapist, pt may benefit from acapella with nebs to improve her ability to expectorate. Pt was noted to be lethargic 11/02/18 ab.32/72. trazodone and ropinirole were discontinued with co2 improving on repeat abg. Per Dr. Romero, pulmolonogist rest room matron, if repeat abg pH<7.3 with ongoing lethargy, may need bipap to reverse hypercarbia. Yesterday, despite having discussion about medication-induced respiratory acidosis, pt was insistent that her sedative meds be resumed. pt wa requesting something for sleep,"maybe even some melatonin, doctor." Pt also c/o right foot pain with no recollection of any trauma at home. Xray of the right foot: OA,chronic. PHYSICAL EXAMINATION: VITALS: pls see below General: Patient is sitting in bed and is in no acute respiratory distress and is able to speak in complete sentences and is not using any accessory muscles for respiration. lethargic unable to keep her eyes open when conversing. HEENT: Normocephalic, atraumatic. Mucous membranes are moist. Neck is supple. Trachea is midline. No palpable adenopathy, but some tenderness to palpation in the superficial cervical lymph nodes. Cardiac: Difficult to auscultate, but regular S1 and S2 and no murmurs appreciated. Pulmonary: Some diminished breath sounds bilaterally with coarse wheezes and rhonchi. Abdomen is obese and soft. No palpable masses. Nontender to palpation. Extremities: There is some trace lower extremity bilaterally and some well healed scars in the lower extremity. right dorsal 1 1cm bruises. LABORATORY DATA, IMAGING STUDIES, MICROBIOLOGY: PLS SEE BELOW ASSESSMENT/PLAN: 58-year-old female with a past medical history significant for chronic obstructive pulmonary disease (COPD) with chronic hypoxemic respiratory failure on 2 liters nasal cannula oxygen, history of deep vein thrombosis (DVT)/pu lmonary embolism (PE) on Xarelto,coronary artery disease, hypertension, gastroesophageal reflux disease, anxiety, congestive heart failure with preserved Ejection Fraction, pulmonary hypertension, and orthostatic hypotension, s/p Daliresp with side effects of insomnia and mood changes, presented to the ER with c/o worsening sob for the past few days despite nebs q4hrs and breo-ellipta. she denies any fevers, chills. no cough. She denies any chest pain,pressure, tightness, lightheadedness, or any recent sick contacts. She c/o increasing PATEL and slight weight gain, and has been unable to ambulate 15-20 feet at home. She is compliant with her xarelto. In the ER, pt was found to be wheezing. CXR: no infiltrate. Hospitalist was called to admit. Acute exacerbation of COPD with chronic hypoxemic respiratory failure on nasal cannula oxygen supplementation. She did not have any evidence of infiltrates on her chest x-ray, there was hyperinflation noted only. Her respiratory panel was negative. The patient is on dexamethasone due to allergy to solumedrol for her COPD exacerbation as well as with doxycycline. She is also xopenex [id number] due to tachycardia with albuterol. The patient reported some slight improvement, however, she continues to report a cough with difficult to expectorate sputum. Therefore, will trial her on Mucomyst nebulizers to be given with albuterol twice a day and to be used with an Acapella device after the Mucomyst treatment to see if she has improved pulmonary toilet and mucus clearance. Otherwise, will continue with her steroids and with doxycycline. She will likely need a prolonged taper of steroids. Continue with her DuoNeb treatments. The patient has a history of frequent recurrent COPD exacerbations. She had previously been tried on Daliresp as an outpatient, but was unable to tolerate it and refused to continue using it due to the side effects. acapella Pt was noted to be lethargic 11/02/18 ab.32/72. trazodone and ropinirole were discontinued with co2 improving on repeat abg. Per godfrey Edouard rest room matron, if repeat abg pH<7.3 with ongoing lethargy, may need bipap to reverse hypercarbia. Yesterday, despite having discussion about medication-induced respiratory acidosis, pt was insistent that her sedative meds be resumed. pt wa requesting something for sleep,"maybe even some melatonin, doctor." Acute encephalopathy due to respiratory acidosis trazodone and ropinorole discontinued Pt was noted to be lethargic 11/02/18 ab.32/72. trazodone and ropinirole were discontinued with co2 improving on repeat abg. Per godfrey Edouard rest room matron, if repeat abg pH<7.3 with ongoing lethargy, may need bipap to reverse hypercarbia. Yesterday, despite having discussion about medication-induced respiratory acidosis, pt was insistent that her sedative meds be resumed. pt wa requesting something for sleep,"maybe even some melatonin, doctor." Right foot pain Pt also c/o right foot pain with no recollection of any trauma at home. Xray of the right foot: OA,chronic. contaminated Blood culture (+) gram positive cocci s/p one dose iv vanco 10/31/18 for one set of blood cx: gram positive cocci, staph capitis. pt has remained afebrile without chills, dysuria, urgency. 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 compliant with meds Iron deficiency anemia chronic no acute indication for rbc transfusion CAD. no acute ischemia Hypertension. controlled Gastroesophageal reflux disease. chronic Anxiety. chronic Chronic pain and degenerative joint disease. CHF with preserved EF strict i/o monitor urine output Pulmonary hypertension. complicating care Obesity BMI 38.9 complicating care Continue DVT prophylaxis with full anticoagulation with the Xarelto. A-FIB/CHADSVASC SCREEN A-FIB/CHADSVASC A-FIB History Current/History of A-Fib/PAF?: No Current Oral Anticoagulant The: No A-FIB/CHADSVASC A-FIB History Current/History of A-Fib/PAF?: No Current Oral Anticoagulant The: No VS, I&O, 24H, Fishbone Vital Signs/I&O Vital Signs Date Time Temp Pulse Resp B/P (MAP) Pulse Ox O2 Delivery O2 Flow Rate FiO2 11/04/18 06:18 18 95 11/04/18 02:45 2.0 11/03/18 22:00 97.1 98 166/76 (106) 10/31/18 20:12 Nasal Cannula I&O- Last 24 Hours up to 6 AM 11/04/18 06:00 Intake Total 2680 ml Output Total 400 ml Balance 2280 ml Laboratory Data Microbiology Microbiology 10/31/18 Blood Culture - Preliminary, Resulted No Growth after 72 hours. All specime... 10/31/18 Blood Culture - Preliminary, Resulted No Growth after 72 hours. All specime... 10/30/18 Blood Culture - Preliminary, Resulted No Growth after 72 hours. All specime... 10/30/18 Blood Culture - Final, Complete Staphylococcus Capitis 10/31/18 Gram Stain - Final, Complete 10/31/18 Sputum Culture - Final, Complete Staphylococcus Aureus 10/30/18 MRSA Screen - Final, Complete 10/30/18 Respiratory Virus Panel (PCR) (JAMES) - Final, Complete PORTIA QUIROZ MD November 04, 2018 06:41
[2018-11-04] MEDS: MIDODRINE 5 MG TAB PO SCH ×2 (09:20→16:21)
[2018-11-04] MEDS: TORSEMIDE 20 MG TAB PO SCH (09:21)
[2018-11-04] MEDS: ESCITALOPRAM OXALATE 10 MG TAB (LEXAPRO) PO SCH (09:21)
[2018-11-04] MEDS: OMEPRAZOLE 20 MG CAP PO SCH ×2 (09:21→20:34)
[2018-11-04] MEDS: ASPIRIN 81 MG ENTERIC TAB PO SCH (09:21)
[2018-11-04] MEDS: VITAMIN D 1,000 INTERNATIONAL UNITS TABLET PO SCH (09:21)
[2018-11-04] MEDS: ALPRAZolam 0.25 MG TAB PO PRN ×2 (09:21→17:52)
[2018-11-04] MEDS: SPIRONOLACTONE 25 MG TAB PO SCH ×2 (09:22→16:21)
[2018-11-04] MEDS: FERROUS SULFATE 325MG TAB PO SCH (09:22)
[2018-11-04] MEDS: FOLIC ACID 1 MG TAB PO SCH (09:22)
[2018-11-04 14:11] VITALS: BP 150/82
[2018-11-04] MEDS: BREO ELLIPTA INH SCH (17:24)
[2018-11-04] MEDS: RIVAROXABAN 10 MG TAB (XARELTO) PO SCH (17:48)
[2018-11-04] MEDS: SIMVASTATIN 20 MG TAB PO SCH (20:34)
[2018-11-04] MEDS: SENNA 8.6 MG TAB (SENOKOT) PO SCH (20:34)
[2018-11-04 22:00] VITALS: BP 144/84
[2018-11-05 02:00] VITALS: BP 143/91
[2018-11-05] MEDS: PERCOCET 5MG/325MG TAB PO PRN ×5 (03:16→22:12)
[2018-11-05] MEDS: DOXYCYCLINE HYCLATE 100 MG in D5W MINI-BAG PLUS 100 ML IV SCH (03:22)
[2018-11-05] MEDS: LEVALBUTEROL 1.25 MG/0.5 ML CONCENTRATE NEB NEB SCH ×6 (04:18→23:48)
[2018-11-05] MEDS: ALPRAZolam 0.25 MG TAB PO PRN ×3 (05:44→20:02)
[2018-11-05 06:00] VITALS: BP 152/92
[2018-11-05] MEDS: DOXYCYCLINE HYCLATE 100 MG TAB PO SCH ×2 (08:17→20:03)
[2018-11-05] MEDS: ESCITALOPRAM OXALATE 10 MG TAB (LEXAPRO) PO SCH (08:17)
[2018-11-05] MEDS: OMEPRAZOLE 20 MG CAP PO SCH ×2 (08:17→20:03)
[2018-11-05] MEDS: TORSEMIDE 20 MG TAB PO SCH (08:17)
[2018-11-05] MEDS: VITAMIN D 1,000 INTERNATIONAL UNITS TABLET PO SCH (08:18)
[2018-11-05] MEDS: SPIRONOLACTONE 25 MG TAB PO SCH ×2 (08:18→17:01)
[2018-11-05] MEDS: MIDODRINE 5 MG TAB PO SCH ×2 (08:18→17:01)
[2018-11-05] MEDS: ASPIRIN 81 MG ENTERIC TAB PO SCH (08:18)
[2018-11-05] MEDS: FERROUS SULFATE 325MG TAB PO SCH (08:18)
[2018-11-05] MEDS: FOLIC ACID 1 MG TAB PO SCH (08:18)
--- NOTE | 2018-11-05 09:57 | IPN ---
DATE: 11/05/2018 Katrin is seen while rounding for the hospitalists. Plans apparently are for discharge today but tiny feels still anxious and does not feel that she is able to go. She has some excess sedation from Trazodone which was discontinued. Her anxiety is worse since this was discontinued. PHYSICAL EXAMINATION: Afebrile. Oxygen saturation 95% on one liter. 152/92. General appearance is visibly anxious, resting in bed. HEENT is unremarkable. No JVD. Lungs were clear with decreased breath sounds. Heart regular rhythm without murmur. Abdomen was soft and nontender. No peripheral edema. LABS: She has not had labs since 11/03/2018. IMPRESSION: Severe COPD with chronic respiratory failure and acute respiratory failure during this hospitalization from sedating medicine including opioids and trazodone. PLAN: 1. I reviewed her note from yesterday. Dr. Escalera nicely summaries the issues concerning the adverse effects that she had from taking anxiety medicines. Katrin and I had a discussion about this today and as I point out to her patient's do not of anxiety but they can of excess sedation and respiratory failure. She does not feel that she is able to go home today so we will give her another day and plan her discharge tomorrow. She is on steroids doxycycline and nebulizer bronchodilator. 2. Severe anxiety. This is a chronic problem for her. It is made worse by her chronic steroid therapy. She is on high dose steroids with Dexamethasone 4 mg every 6 hours. Trazodone was discontinued during this hospitalization. It is not very potent that she might benefit by some BuSpar it is non-sedating and we will give her something to start to titrate as outpatient for anxiety. I will start her on 5 mg MADDIE scheduled. This can be increased up to 15 mg three times a day and sequential doses as outpatient. The rest of her medical problems are stable. She has agreed to discharge tomorrow.
[2018-11-05] MEDS: busPIRone 5 MG TAB PO SCH ×3 (12:53→20:03)
[2018-11-05 14:00] VITALS: BP 143/91
[2018-11-05] MEDS: BREO ELLIPTA INH SCH (17:01)
[2018-11-05] MEDS: RIVAROXABAN 10 MG TAB (XARELTO) PO SCH (17:01)
[2018-11-05] MEDS: SIMVASTATIN 20 MG TAB PO SCH (20:03)
[2018-11-05] MEDS: SENNA 8.6 MG TAB (SENOKOT) PO SCH (20:03)
[2018-11-05 22:00] VITALS: BP 178/86
[2018-11-06 02:00] VITALS: BP 165/70
[2018-11-06] MEDS: PERCOCET 5MG/325MG TAB PO PRN ×4 (02:27→14:55)
[2018-11-06] MEDS: ALPRAZolam 0.25 MG TAB PO PRN ×2 (02:27→08:46)
[2018-11-06] MEDS: LEVALBUTEROL 1.25 MG/0.5 ML CONCENTRATE NEB NEB SCH ×3 (04:19→11:29)
[2018-11-06 06:00] VITALS: BP 166/74
[2018-11-06] MEDS: OMEPRAZOLE 20 MG CAP PO SCH (08:45)
[2018-11-06] MEDS: FERROUS SULFATE 325MG TAB PO SCH (08:45)
[2018-11-06] MEDS: ESCITALOPRAM OXALATE 10 MG TAB (LEXAPRO) PO SCH (08:45)
[2018-11-06] MEDS: FOLIC ACID 1 MG TAB PO SCH (08:45)
[2018-11-06] MEDS: TORSEMIDE 20 MG TAB PO SCH (08:46)
[2018-11-06] MEDS: ASPIRIN 81 MG ENTERIC TAB PO SCH (08:46)
[2018-11-06] MEDS: VITAMIN D 1,000 INTERNATIONAL UNITS TABLET PO SCH (08:46)
[2018-11-06] MEDS: DOXYCYCLINE HYCLATE 100 MG TAB PO SCH (08:46)
[2018-11-06] MEDS: MIDODRINE 5 MG TAB PO SCH (08:46)
[2018-11-06] MEDS: SPIRONOLACTONE 25 MG TAB PO SCH (08:46)
[2018-11-06] MEDS: busPIRone 5 MG TAB PO SCH (10:16)
[2018-11-06] MEDS ORDERED: BUSP5TA PO (12:01)
[2018-11-06] MEDS ORDERED: methylPREDNISolone 80MG/ML SUSP 1ML VIAL (J1040) IM ONE (12:15)
--- NOTE | 2018-11-06 12:50 | DSES ---
DATE OF ADMISSION: 10/30/2018 DATE OF DISCHARGE: PRIMARY CARE PROVIDER: Dr. Sukhdev Conde, [facility]. HISTORY: Katrin Alfred has had frequent admissions to [facility], I think six times in 2019 alone. She was admitted with exacerbation of chronic obstructive pulmonary disease (COPD), strong anxiety component. Details of her history and physical as per admission. HOSPITAL COURSE: I picked the patient up the day before discharge. She was treated in her usual fashion with steroids and nebulized bronchodilator. She had respiratory failure secondary to oversedation. Her medications were reduced and she did well with this. On the day of discharge, she is quite anxious, but I explained to her that I just started her on BuSpar 5 mg three times a day and this could be titrated up to 15 mg three times a day as an outpatient and she is hopeful that it may help some of her anxiety. I strongly recommend avoiding sedating medications, as she gets respiratory failure from this. LABORATORIES: Most recent white count 16, hemoglobin 11, platelets 195. Sodium 138, potassium 4.4, BUN 29, creatinine 0.8. Sputum just grew a few Staphylococcus aureus. Chest x-ray showed no active disease. DISPOSITION: Discharge medications are: - albuterol inhaler as needed - aspirin 81 mg daily - vitamin D 2000 units daily - Celexa 20 mg daily - Lexapro 20 mg daily - ferrous sulfate 325 mg daily - Breo Ellipta one inhalation daily - folic acid 1 mg daily - DuoNeb as needed - lamotrigine 150 mg daily - midodrine 5 mg twice a day - Nitrostat as needed - omeprazole 40 mg twice a day - Zofran 4 mg every 6 hours as needed - Xarelto 10 mg daily - Zocor 20 mg daily - spironolactone 25 mg twice a day - torsemide 20 mg daily - Senna as needed - alprazolam 1 mg twice a day as needed Her previous trazodone has been discontinued. She has been started on BuSpar 5 mg three times a day. She is on long-term steroids as an outpatient. She was on some dexamethasone 4 mg every 6 hours here. I have ordered Depo-Medrol 80 mg intramuscularly times one shot before discharge to provide a steroid taper over the next 5 to 7 days. She is stable on discharge. She is anxious and I think that she would benefit from a referral to behavioral health, which can be done as an outpatient. Dose of BuSpar can be escalated as an outpatient. She is frequently admitted for shortness of breath and we need to be cautious to sort out how much of this is anxiety and how much is pulmonary.
== END 2018-11-06 15:55 | disposition home health service (06) | DRG 140 ==
LOC: M ED 12:16 → EDBD 12:16 → M ED INP 15:51 → M MSPAV 18:35
PROVIDERS: ADMIT General Practice; ATTEND Family Medicine
DX: J44.1 Chronic obstructive pulmonary disease with (acute) exacerbation (principal); J96.11 Chronic respiratory failure with hypoxia; I27.20 Pulmonary hypertension, unspecified; I11.0 Hypertensive heart disease with heart failure; I50.32 Chronic diastolic (congestive) heart failure; G25.81 Restless legs syndrome; Z86.718 Personal history of other venous thrombosis and embolism; Z86.711 Personal history of pulmonary embolism; Z79.01 Long term (current) use of anticoagulants; I25.10 Atherosclerotic heart disease of native coronary artery without angina pectoris; K21.9 Gastro-esophageal reflux disease without esophagitis; F41.9 Anxiety disorder, unspecified; D50.9 Iron deficiency anemia, unspecified; M19.90 Unspecified osteoarthritis, unspecified site; Z96.641 Presence of right artificial hip joint; Z87.891 Personal history of nicotine dependence; E78.5 Hyperlipidemia, unspecified; Z79.899 Other long term (current) drug therapy; G47.33 Obstructive sleep apnea (adult) (pediatric); Z68.38 Body mass index [BMI] 38.0-38.9, adult

== ENCOUNTER 2018-11-15 20:47 | Inpatient (IN) | payer OTHER ==
[~2018-11-15] VITALS: Ht 167.6 cm; Wt 109.3 kg
[~2018-11-15 20:47] MED LIST changes: +BUSP5TA PO; +RA S8.6T3 PO; -SB S8.6T PO
[2018-11-15] MEDS ORDERED: ALBUTEROL SULFATE 2.5 MG/0.5 ML INH NEB SOLN NEB ONE (21:00)
[2018-11-15] MEDS ORDERED: dexameTHASONE 20 MG/5 ML VIAL (J1100) IV ONE (21:00)
[2018-11-15] MEDS ORDERED: FUROSEMIDE 100 MG/10 ML VIAL (J1940) IV ONE (21:00)
[2018-11-15] MEDS: SENNA 8.6 MG TAB (SENOKOT) PO SCH (21:00)
[2018-11-15 21:29] LABS: BASO % 0.4 % (0.0-1.0); EOS # 0.4 10^3/uL (0.0-0.50); EOS % 3.7 % (0.0-3.0); HEMATOCRIT 42.8 % (36.0-47.0); HEMOGLOBIN 12.9 g/dl (12.0-15.5); LYMPH # 1.8 10^3/uL (1.5-4.5); LYMPH % 16.4 % (24.0-44.0); MEAN CORPUSCULAR HEMOGLOBIN 29.3 pg (27.0-33.0); MEAN CORPUSCULAR HGB CONC 30.1 g/dl (32.0-36.5); MEAN CORPUSCULAR VOLUME 97.3 fl (80.0-96.0); MONO # 1.3 10^3/uL (0.0-0.8); MONO % 11.8 % (0.0-5.0); NEUTROPHILS # 7.2 10^3/uL (1.8-7.7); PLATELET COUNT, AUTOMATED 223 10^3/uL (150-450); WHITE BLOOD COUNT 10.8 10^3/uL (4.0-10.0)
[2018-11-15 21:32] LABS: ABG BASE EXCESS 3.7 (-2.0-2.0); ABG O2 SATURATION 99.5 % (95.0-99.0); ABG PARTIAL PRESSURE O2 191.9 mmHg (75.0-100.0); ABG STANDARD HCO3 27.8 MEQ/L (22.0-26.0); ABG TOTAL CO2 36.5 MEQ/L (23.0-31.0)
[2018-11-15 21:33] LABS: ABG PARTIAL PRESSURE CO2 83.2 mmHg (35.0-45.0); ABG pH (ARTERIAL) 7.229 UNITS (7.350-7.450)
[2018-11-15 21:41] LABS: INR 1.01; PROTHROMBIN TIME 13.4 SECONDS (12.1-14.4)
[2018-11-15 21:42] LABS: PARTIAL THROMBOPLASTIN TIME 26.8 SECONDS (25.4-37.6)
[2018-11-15 21:55] LABS: BLOOD UREA NITROGEN 13 MG/DL (7-18); CALCIUM LEVEL 8.8 MG/DL (8.8-10.2); CARBON DIOXIDE LEVEL 34 MEQ/L (21-32); CHLORIDE LEVEL 103 MEQ/L (98-107); CPK CREATINE PHOSPHOKINASE 28 U/L (26-192); CREATININE FOR GFR 0.88 MG/DL (0.55-1.30); GLOMERULAR FILTRATION RATE > 60.0 (>45); GLUCOSE, FASTING 105 MG/DL (70-100); MB/CK RELATIVE INDEX 6.43 (< OR =4); NT-PRO BNP 139 PG/ML (<125); POTASSIUM SERUM 4.9 MEQ/L (3.5-5.1); SODIUM LEVEL 142 MEQ/L (136-145); TROPONIN I < 0.02 NG/ML (< 0.10)
--- NOTE | 2018-11-15 22:05 | REP ---
Clinical: Dyspnea. Comparison: 10/30/2018. Findings: Evaluation is limited by portable technique and underpenetration which accentuate the pulmonary vasculature. Mediastinum and cardiac silhouette are stable. Lung white demonstrate chronic interstitial changes. Interstitial edema cannot be excluded. No focal consolidation. No effusion. No pneumothorax. Skeletal structures intact and stable. Impression: Chronic stable changes. No focal consolidation or effusion. Mild interstitial edema cannot be excluded. Electronically Signed by Lee Wolf MD 11/15/2018 09:56 P
[2018-11-15] MEDS ORDERED: CELE20TA PO (22:50)
[2018-11-15] MEDS ORDERED: BUSP5TA PO (22:50)
[2018-11-15] MEDS ORDERED: ACETAMINOPHEN TAB 650MG DOSE (2X325MG) PO PRN (23:00)
[2018-11-15] MEDS ORDERED: MOM 30ML SUSPENSION UDC PO PRN (23:00)
[2018-11-15] MEDS ORDERED: MAALOX 30 ML SUSP *UDC PO PRN (23:00)
[2018-11-15] MEDS ORDERED: ONDANSETRON 4 MG TAB (S0181) PO PRN (23:15)
--- NOTE | 2018-11-15 23:20 | HPEPDOC ---
General Date of Admission Date of Service: November 15, 2018 Chief Complaint The patient is a 58-year-old female admitted with a reason for visit of Shortness Of Breath. Source: Patient, Family, RN/, Old records History of Present Illness Ms. Alfred is a 58 years old woman with O2-dependent COPD who was recently discharged from hospital after treatment on COPD and respiratory failure on 11/06. She presents to ER with c/o SOB for one day. Denies cough, fever, chills or other change in her usual state of health, except for weakness and lethargy. In the ER, pt was noted to have higher CO2 retention than usual, with mild respiratory acidosis on ABG; pH 7.229, pCO2 83.2. Her O2 need is as usual- 2L. She was treated with steroid and nebs int he ER, and placed on BiPaP. Pt is frequently admitted for respiratory failure and hypercarbia. She uses benzo, opioid and ani-epileptic, and possibly has sleep apnea- all these are likely to contribute to her CO2 narcosis, rather than an isolated COPD issue. Currently, pt is tolerating BiPaP. She is responding to questions and following commands. Not in distress. PAST MEDICAL HISTORY: 1. COPD with chronic hypoxemic respiratory failure. 2. DVT and PE on Xarelto. 3. Iron deficiency anemia. 4. CAD. 5. Hypertension. 6. Gastroesophageal reflux disease. 7. Anxiety. 8. Chronic pain and degenerative joint disease. 9. CHF. 10. Orthostatic hypotension. 11. Pulmonary hypertension. PAST SURGICAL HISTORY: 1. Leg surgeries. 2. Right hip replacement. 3. Hysterectomy. 4. Bladder tuck. 5. Cataract surgery. SOCIAL HISTORY: Former smoker, was one to two packs a day for 38 years, quit in 2010. No alcohol use or illicit drug use. 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 FAMILY HISTORY: Mother with history of hypertension, hyperlipidemia, coronary artery disease and unknown cancer. Father with history of lung and throat cancer. Siblings with history of cancer and COPD. A daughter with diabetes and another daughter with lupus. Home Medications Scheduled Alprazolam (Alprazolam) 1 Mg Tab, 1 MG PO BID, (Reported) Aspirin (Aspirin EC) 81 Mg Tabec, 81 MG PO DAILY, (Reported) Buspirone HCl (Buspirone HCl) 5 Mg Tablet, 5 MG PO TID, (Reported) Cholecalciferol (Vitamin D3) (Vitamin D3) 2,000 Unit Tab, 2,000 UNIT PO DAILY, (Reported) Citalopram Hydrobromide (Celexa) 20 Mg Tablet, 20 MG PO DAILY, (Reported) Escitalopram Oxalate (Escitalopram Oxalate) 20 Mg Tab, 20 MG PO DAILY, (Reported) Ferrous Sulfate (Ferrous Sulfate) 325 Mg Tab, 325 MG PO DAILY, (Reported) Fluticasone/Vilanterol (Breo Ellipta 200-25 Mcg INH) 1 Inh Inh, 1 PUFF INH DAILY, (Reported) Folic Acid (Folic Acid) 1 Mg Tab, 1 MG PO DAILY, (Reported) Ipratropium/Albuterol Sulfate (Iprat-Albut 0.5-3(2.5) mg/3 ml) 1 Loan Loan, 1 DOSE INH Q4H, (Reported) Lamotrigine (Lamotrigine) 150 Mg Tab, 150 MG PO DAILY, (Reported) Midodrine HCl (Midodrine HCl) 5 Mg Tab, 5 MG PO BID, (Reported) 0800/1600 Omeprazole (Omeprazole) 40 Mg Cap, 40 MG PO BID, (Reported) Rivaroxaban (Xarelto) 10 Mg Tab, 10 MG PO DAILY, (Reported) Sennosides (Senna Lax) 8.6 Mg Tablet, 2 TAB PO QHS, (Reported) Simvastatin (Zocor) 20 Mg Tab, 20 MG PO QHS, (Reported) Spironolactone (Spironolactone) 25 Mg Tab, 25 MG PO BID, (Reported) 0800/1600 Torsemide (Torsemide) 20 Mg Tab, 20 MG PO DAILY, (Reported) Scheduled PRN Albuterol Sulfate (Ventolin Hfa) 108 Mcg/Act Aer, 2 PUFF INH Q4H PRN for SHORT NESS OF BREATH, (Reported) Nitroglycerin (Nitrostat) 0.4 Mg Subl, 0.4 MG SL NITRO PRN for CHEST PAIN, (Reported) Ondansetron HCl (Ondansetron HCl) 4 Mg Tab, 4 MG PO Q6H PRN for NAUSEA, (Reported) Oxycodone HCl/Acetaminophen (Percocet 5-325 mg Tablet) 1 Tab Tab, 1 TAB PO Q4H PRN for PAIN, (Reported) Allergies Coded Allergies: morphine (Verified Allergy, Severe, SOB, itching, rash, 11/15/18) Penicillins (Verified Allergy, Intermediate, Hives, 11/15/18) Quinolones (Verified Allergy, Intermediate, Hives, 11/15/18) Sulfa (Sulfonamide Antibiotics) (Verified Allergy, Intermediate, Hives, 11/15/18) cephalexin (Verified Allergy, Intermediate, Hives, 11/15/18) clavulanic acid (Verified Allergy, Intermediate, Hives, 11/15/18) erythromycin base (Verified Allergy, Intermediate, Hives, 11/15/18) moxifloxacin (Verified Allergy, Intermediate, Hives, 11/15/18) methylprednisolone (Verified Allergy, Mild, RASH WITH IV, 11/15/18) levofloxacin (Verified Allergy, Unknown, 11/15/18) iodine (Verified Adverse Reaction, Intermediate, Acute renal insufficiency , 11/15/18) iopamidol (Verified Adverse Reaction, Intermediate, Acute renal insufficiency, 11/15/18) gabapentin (Verified Adverse Reaction, Mild, Upset stomach, 11/15/18) Social History * Smoker: former Smoker A-FIB/CHADSVASC A-FIB History Current/History of A-Fib/PAF?: No Review of Systems Constitutional: Denies: Chills, Fever Eyes: Denies: Pain ENT: Denies: Head Aches Skin: Denies: Rash, Lesions Pulmonary: Reports: Dyspnea; Denies: Cough Cardiovascular: Reports: Chest Pain; Denies: Edema Gastrointestinal: Denies: Nausea, Vomiting, Abdominal Pain, Diarrhea Genitourinary: Denies: Dysuria, Frequency Musculoskeletal: Denies: Neck Pain, Back Pain Neurological: Denies: Weakness, Numbness Psych: Reports: Mood Normal; Denies: Anxiety Physical Examination General Exam: Positive: Alert, Cooperative, No Acute Distress (on BiPaP) Eye Exam: Positive: PERRLA ENT Exam: Negative: Atraumatic Neck Exam: Positive: Supple; Negative: JVD Chest Exam: Positive: Clear to auscultation, Diminished (globally); Negative: Rales, Rhonchi, Wheezing Heart Exam: Positive: Rate Normal, Regular Rhythm Abdomen Exam: Positive: Normal bowel sounds, Soft; Negative: Tenderness Extremity Exam: Positive: Normal pulses; Negative: Edema Skin Exam: Positive: Nl turgor and temperature; Negative: Rash, Breakdown Neuro Exam: Positive: Normal Speech, Normal Tone Psych Exam: Positive: Mental status NL, Mood NL, Oriented x 3 Vital Signs Vital Signs Date Time Temp Pulse Resp B/P (MAP) Pulse Ox O2 Delivery O2 Flow Rate FiO2 11/15/18 22:12 98.7 116 28 93 Nasal Cannula 4.0 40 11/15/18 22:00 137/70 (92) Laboratory Data Labs 24H Laboratory Tests 2 11/15/18 21:13: Blood Gas Bicarbonate Standard 27.8H, Arterial Blood pH 7.229*L, Arterial Blood Partial Pressure CO2 83.2*H, Arterial Blood Partial Pressure O2 191.9H, Arterial Blood Total CO2 36.5H, Arterial Blood HCO3 34.0H, Arterial Blood Base Excess 3.7H, Arterial Blood Oxygen Saturation 99.5H 11/15/18 21:14: Immature Granulocyte % (Auto) 0.7, White Blood Count 10.8H, Red Blood Count 4.40, Hemoglobin 12.9, Hematocrit 42.8, Mean Corpuscular Volume 97.3H, Mean Corpuscular Hemoglobin 29.3, Mean Corpuscular Hemoglobin Concent 30.1L, Red Cell Distribution Width 15.2H, Platelet Count 223, Neutrophils (%) (Auto) 67.0H, Lymphocytes (%) (Auto) 16.4L, Monocytes (%) (Auto) 11.8H, Eosinophils (%) (Auto) 3.7H, Basophils (%) (Auto) 0.4, Neutrophils # (Auto) 7.2, Lymphocytes # (Auto) 1.8, Monocytes # (Auto) 1.3H, Eosinophils # (Auto) 0.4, Basophils # (Auto) 0.0, Nucleated Red Blood Cells % (auto) 0.0, Prothrombin Time 13.4, Prothromb Time International Ratio 1.01, Activated Partial Thromboplast Time 26.8, Anion Gap 5L, Glomerular Filtration Rate > 60.0, Lactic Acid Level 0.7, Blood Urea Nitrogen 13, Creatinine 0.88, Sodium Level 142, Potassium Level 4.9, Chloride Level 103, Carbon Dioxide Level 34H, Calcium Level 8.8, Total Creatine Kinase 28, Creatine Kinase MB 2.0, Creatine Kinase MB Relative Index 6.43H, Troponin I < 0.02, TI-Rym-I-Type Natriuretic Peptide 139H CBC/BMP Laboratory Tests 5/31/19 21:14 Red Blood Count 4.40, Mean Corpuscular Volume 97.3 H, Mean Corpuscular Hemoglobin 29.3, Mean Corpuscular Hemoglobin Concent 30.1 L, Red Cell Dis tribution Width 15.2 H, Neutrophils (%) (Auto) 67.0 H, Lymphocytes (%) (Auto) 16.4 L, Monocytes (%) (Auto) 11.8 H, Eosinophils (%) (Auto) 3.7 H, Basophils (%) (Auto) 0.4, Neutrophils # (Auto) 7.2, Lymphocytes # (Auto) 1.8, Monocytes # (Auto) 1.3 H, Eosinophils # (Auto) 0.4, Basophils # (Auto) 0.0, Calcium Level 8.8, Total Creatine Kinase 28 Microbiology Microbiology 11/15/18 Blood Culture, Received Pending Assessment/Plan Acute on Chronic Hypercapnic Respiratory Failure, Multifactorial: COPD, Drug-related (Benzo, Opioid, anti-epileptic), Possible underlying JOIDE - Keep on observation overnight - BiPaP - Steroid, nebs - No indication for antibiotic use - Repeat ABG in the morning Continue home meds for other chronic illness. Plan / VTE VTE Prophylaxis Ordered?: No VTE Exclusion Mechanical Proph: Other VTE Exclusion Pharmacological: Other Plan Anticipated Discharge: Home SHON CALLEJAS MD November 15, 2018 23:20
[2018-11-15] MEDS ORDERED: PILL CUTTER 1 EACH XX PRN (23:30)
[2018-11-15 23:31] LABS: ABG BASE EXCESS 2.5 (-2.0-2.0); ABG O2 SATURATION 98.5 % (95.0-99.0); ABG PARTIAL PRESSURE O2 127.6 mmHg (75.0-100.0); ABG STANDARD HCO3 26.7 MEQ/L (22.0-26.0); ABG TOTAL CO2 34.3 MEQ/L (23.0-31.0); ABG pH (ARTERIAL) 7.253 UNITS (7.350-7.450)
[2018-11-15 23:32] LABS: ABG PARTIAL PRESSURE CO2 74.1 mmHg (35.0-45.0)
[2018-11-15] MEDS: PERCOCET 5MG/325MG TAB PO PRN (23:32)
[2018-11-16] VITALS (12 sets, daily range): BP systolic 115–165; BP diastolic 62–91
[2018-11-16] MEDS: SIMVASTATIN 20 MG TAB PO SCH ×2 (01:37→20:42)
[2018-11-16] MEDS: ALPRAZolam 0.5 MG TAB PO SCH ×3 (01:37→20:42)
[2018-11-16] MEDS: IPRATROPIUM 0.5MG/ALBUTEROL 2.5MG INH SOL UD 3ML (DUONEB)(J7620) NEB SCH ×4 (02:30→19:58)
[2018-11-16] MEDS: PERCOCET 5MG/325MG TAB PO PRN ×5 (04:31→21:39)
[2018-11-16 04:49] LABS: HEMATOCRIT 43.2 % (36.0-47.0); MEAN CORPUSCULAR HEMOGLOBIN 28.3 pg (27.0-33.0); MEAN CORPUSCULAR HGB CONC 30.1 g/dl (32.0-36.5); MEAN CORPUSCULAR VOLUME 93.9 fl (80.0-96.0); PLATELET COUNT, AUTOMATED 210 10^3/uL (150-450); WHITE BLOOD COUNT 8.4 10^3/uL (4.0-10.0)
[2018-11-16 05:10] LABS: CALCIUM LEVEL 10.3 MG/DL (8.8-10.2); CREATININE FOR GFR 1.04 MG/DL (0.55-1.30); GLOMERULAR FILTRATION RATE 57.5 (>45); POTASSIUM SERUM 4.6 MEQ/L (3.5-5.1)
[2018-11-16] MEDS ORDERED: methylPREDNISolone INJ 125 MG/2 ML VIAL (J2930) IV SCH (05:30)
[2018-11-16 07:55] LABS: ABG BASE EXCESS 4.3 (-2.0-2.0); ABG HCO3 31.1 MEQ/L (22.0-26.0); ABG O2 SATURATION 98.6 % (95.0-99.0); ABG PARTIAL PRESSURE CO2 55.2 mmHg (35.0-45.0); ABG PARTIAL PRESSURE O2 112.6 mmHg (75.0-100.0); ABG STANDARD HCO3 28.4 MEQ/L (22.0-26.0); ABG TOTAL CO2 32.7 MEQ/L (23.0-31.0); ABG pH (ARTERIAL) 7.368 UNITS (7.350-7.450)
[2018-11-16] MEDS: MIDODRINE 5 MG TAB PO SCH ×2 (08:00→16:32)
[2018-11-16] MEDS: TORSEMIDE 20 MG TAB PO SCH (08:19)
[2018-11-16] MEDS: lamoTRIgine 100MG TAB PO SCH (08:19)
[2018-11-16] MEDS: RIVAROXABAN 10 MG TAB (XARELTO) PO SCH (08:19)
[2018-11-16] MEDS: ASPIRIN 81 MG ENTERIC TAB PO SCH (08:19)
[2018-11-16] MEDS: ESCITALOPRAM OXALATE 10 MG TAB (LEXAPRO) PO SCH (08:19)
[2018-11-16] MEDS: busPIRone 5 MG TAB PO SCH ×3 (08:19→20:41)
[2018-11-16] MEDS: PANTOPRAZOLE 40MG TAB (PROTONIX) PO SCH (08:19)
[2018-11-16] MEDS: FERROUS SULFATE 325MG TAB PO SCH (08:20)
[2018-11-16] MEDS: SPIRONOLACTONE 25 MG TAB PO SCH ×2 (08:20→16:32)
[2018-11-16] MEDS: FOLIC ACID 1 MG TAB PO SCH (08:20)
[2018-11-16] MEDS ORDERED: CitaloPRAM (CeleXA) 20 MG TAB PO SCH (09:00)
--- NOTE | 2018-11-16 11:49 | CR ---
DATE OF CONSULTATION: 11/16/2018 PULMONARY CONSULT CHIEF COMPLAINT: Weakness. HISTORY OF PRESENT ILLNESS: Ms. Alfred is a 58-year-old female with a past medical history of end-stage chronic obstructive pulmonary disease (COPD) with chronic hypoxemic respiratory failure - on 2 liters nasal cannula oxygen supplementation, history of chronic hypercarbic respiratory failure, deep vein thrombosis (DVT)/pulmonary embolism (PE) on anticoagulation, coronary artery disease, hypertension, gastroesophageal reflux disease (GERD), diastolic congestive heart failure (CHF) with pulmonary hypertension, anxiety, chronic pain syndrome who presented with a complaint of lethargy and some confusion. The patient reports that she was sitting in car waiting while her home delivery driver had been shopping when she had fallen asleep for approximately 2 hours or so. Upon waking up, she was very confused and disoriented. Her aide was concerned, and she was therefore brought into the emergency department (ED) for further evaluation. Prior to this, in the past few days, she had noticed that she has been sleeping more during the day and also feeling more lethargic as well. She has some chronic shortness of breath with exertion but denied any increasing shortness of breath from her usual that she noted. She has been compliant with her inhalers and with her nebulizer treatments which she has been using regularly. She denies any increasing wheezing or increasing cough. She denies any chest pain. She does have occasional chest tightness that she has noticed. In the past few days, she has noted some increased lower extremity edema in her legs compared to usual. This morning, with the intravenous (IV) diuretic, she feels her lower extremity edema has improved. Initially in the ED, the patient was found to have acute on chronic hypercarbic respiratory failure. She was placed on bilevel positive airway pressure (BiPAP) overnight with improvement in her ABG this morning. She was also started on steroids in addition to the IV diuretic. The patient denied any fevers or chills at home. She had no abdominal pain. No nausea or vomiting. PAST MEDICAL HISTORY: COPD - end stage with chronic hypoxemic respiratory failure, chronic hypercarbic respiratory failure, DVT, PE - on Xarelto, iron deficiency anemia, CAD, hypertension, GERD, anxiety, chronic pain and degenerative joint disease, diastolic CHF with pulmonary hypertension, orthostatic hypotension. PAST SURGICAL HISTORY: Leg surgeries, right hip replacement, hysterectomy, bladder tuck, cataract surgery. SOCIAL HISTORY: Former smoker, was one to two packs a day for 38 years, quit in 2010. 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 FAMILY HISTORY: Mother with a history of hypertension, hyperlipidemia, CAD and unknown cancer. Father with a history of lung and throat cancer. Siblings with history of cancer and COPD. Daughter with diabetes and another daughter with lupus. ALLERGIES: AUGMENTIN, MORPHINE, AVELOX, ERYTHROMYCIN, KEFLEX, SULFA, BIAXIN, CIPROFLOXACIN. HOME MEDICATIONS: - Xanax twice a day - aspirin - buspirone three times a day - vitamin D - Celexa - escitalopram - ferrous sulfate - Breo - folic acid - DuoNeb - lamotrigine - midodrine - omeprazole - Xarelto - senna - Zocor - spironolactone 25 mg twice a day - torsemide 20 mg daily PHYSICAL EXAMINATION: Temperature afebrile, pulse 97, respirations 18, blood pressure 116/56, oxygen saturation 94% on 25% FiO2. General: The patient is an overweight female, is lying in bed with some tremors but is able to speak in complete sentences, is not using any accessory muscles for respiration currently. HEENT: Normocephalic, atraumatic. Mucous membranes are moist. Neck is supple. Trachea is midline. No palpable adenopathy. Unable to appreciate jugular venous distention (JVD) due to neck habitus. Cardiac: Diminished heart sounds but regular S1, S2. Unable to appreciate any murmurs. Pulmonary: Decreased breath sounds bilaterally with no significant wheezing or rhonchi. Faint crackles at the bases. Abdomen is obese and soft, nontender to palpation. Extremities: There are well healed scars in the lower extremities. There is tenderness to palpation anteriorly in the shins but no significant lower extremity edema. LABORATORY DATA: WBC 8.4, hemoglobin 13.0, platelets 210. Chemistry: Sodium 137, potassium 4.6, chloride 97, bicarbonate 34, BUN 13, creatinine 1.04, glucose 164, calcium 10.3, BNP was 139, previously BNP was 55. Repeat ABG this morning on nasal cannula with a pH of 7.368, pCO2 of 55.2 and a pO2 of 112.6. Chest x-ray showed no focal opacities or effusions. There is increased interstitial markings bilaterally, possibly mild pulmonary vascular congestion. ASSESSMENT/PLAN: Ms. Alfred is a 58-year-old female with a history of end-stage chronic obstructive pulmonary disease with chronic hypoxemic respiratory failure, on nasal cannula oxygen supplementation, deep vein thrombosis, pulmonary embolism - on Xarelto, diastolic congestive heart failure and pulmonary hypertension, hyperlipidemia, anxiety and depression who presented with increasing fatigue and weakness. The patient was found to have acute on chronic hypercarbic respiratory failure. She had denied any increasing shortness of breath, cough or wheezing that she has noted. She did note, however, some increasing lower extremity edema in the past few days, and her BNP on admission while not too elevated is higher than her previous BNP at baseline. The patient is also on medications for her anxiety and for her chronic pain with benzodiazepines and opioids, which with her chronic hypercarbic respiratory failure, may have contributed to some hypoventilation and possibly acute worsening of her hypercarbia. The patient may have chronic hypercarbic respiratory failure due to her end-stage COPD. She did have a home sleep study done as an outpatient given some concern for obstructive sleep apnea, which was negative. She had previously refused in lab sleep study as an outpatient. - Will change the patient to be tabletop BiPAP with the same settings at 12 over 6 with FiO2 of 25%. - Given her ABG on nasal cannula shows persistent chronic hypercarbia, and with her negative home sleep study, the patient can qualify for home BiPAP for her end-stage COPD. The patient is on Solu-Medrol for possible COPD exacerbation. However, she denied any increasing cough, wheezing or shortness of breath. Would discontinue steroids and continue with her home inhalers and with DuoNebs for now and continue to monitor. If she has increasing wheezing or shortness of breath, may need to restart her with prednisone for possible COPD exacerbation. She has no evidence of any acute infiltrate on her chest x-ray to suggest PNA. There is some increased interstitial markings and possible mild pulmonary vascular congestion. She does have slightly elevated BNP compared to her baseline. She was given IV diuretic with improvement in her lower extremity edema. Will continue with her home diuretic for now and continue monitoring her I/Os. Would give the patient an Acapella device with her nebulizer treatments for pulmonary toilet and mucus clearance. Continue with nasal cannula oxygen supplementation at 2 liters per minute. DVT prophylaxis with Xarelto The patient will need followup with pulmonary 1-2 weeks after her discharge. MTDD
--- NOTE | 2018-11-16 12:24 | IPNPDOC ---
Subjective Date Seen The patient was seen on 11/16/18. Subjective Chief Complaint/HPI Patient seen and examined at the bedside. Reports that her respiratory status is significantly improved this morning. Denies any cough, congestion, or sputum production. Objective Physical Examination General Exam: Positive: Alert, Cooperative, No Acute Distress ENT Exam: Positive: Atraumatic Neck Exam: Negative: JVD Chest Exam: Positive: Diminished (globally); Negative: Rales, Rhonchi, Wheezing Heart Exam: Positive: Rate Normal, Regular Rhythm Abdomen Exam: Positive: Normal bowel sounds, Soft; Negative: Tenderness Extremity Exam: Negative: Tenderness, Swelling Psych Exam: Positive: Mental status NL, Mood NL, Oriented x 3 Assessment /Plan Plan/VTE VTE Prophylaxis Ordered?: Yes VTE Exclusion Mechanical Proph: Other VTE Exclusion Pharmacological: Other Plan Acute on Chronic Hypercarbic Respiratory Failure Likely 2/2 mildly decompensated CHF state, Use of Benzo's Improved following BiPAP therapy IV Solumedrol discontinued as this is likely not an exacerbation as the patient denies any worsening, cough, sputum production Case discussed with Pulmonary--patient had a negative home sleep study for obstructive sleep apnea. However, given the patient's hypercarbic respiratory failure, likely attributable to her end-stage COPD with a combination of factors noted above the patient can qualify for home BiPAP. We will transition the patient to table top BiPAP CM/SW will be consulted to assist in the process of obtain the device. We will cont to monitor the patient Diastolic CHF Patient did have increased lower extremity edema upon arrival which improved after a dose of IV Lasix Cont Current PO regimen of diuretics Depression / Anxiety On Xanax, Lexapro, BuSpar, Lamictal I did discuss risks associated with respiratory depression and the use of benzodiazepines and opiates with the patient at length. She maintains that she needs these medications to function given her chronic pain and anxiety. She has verbalized understanding of the judicious use of the aforementioned medications. Hx of Bilateral DVT, 2014 Cont full anticoagulation with Xarelto Dyslipidemia Cont Statin GERD Cont PPI DVT prophylaxis On Xarelto VS, I&O, 24H, Fishbone Vital Signs/I&O Vital Signs Date Time Temp Pulse Resp B/P (MAP) Pulse Ox O2 Delivery O2 Flow Rate FiO2 11/16/18 08:49 18 11/16/18 07:35 25 11/16/18 06:00 97 116/86 (96) 94 11/16/18 04:00 97.8 11/16/18 00:45 4.0 11/16/18 00:15 NIPPV (BIPAP/CPAP) I&O- Last 24 Hours up to 6 AM 11/16/18 06:00 Output Total 300 ml Balance -300 ml Laboratory Data 24H LABS Laboratory Tests 2 11/15/18 21:13: Blood Gas Bicarbonate Standard 27.8H, Arterial Blood pH 7.229*L, Arterial Blood Partial Pressure CO2 83.2*H, Arterial Blood Partial Pressure O2 191.9H, Arterial Blood Total CO2 36.5H, Arterial Blood HCO3 34.0H, Arterial Blood Base Excess 3.7H, Arterial Blood Oxygen Saturation 99.5H 11/15/18 21:14: Immature Granulocyte % (Auto) 0.7, White Blood Count 10.8H, Red Blood Count 4.40, Hemoglobin 12.9, Hematocrit 42.8, Mean Corpuscular Volume 97.3H, Mean Corpuscular Hemoglobin 29.3, Mean Corpuscular Hemoglobin Concent 30.1L, Red Cell Distribution Width 15.2H, Platelet Count 223, Neutrophils (%) (Auto) 67.0H, Lymphocytes (%) (Auto) 16.4L, Monocytes (%) (Auto) 11.8H, Eosinophils (%) (Auto) 3.7H, Basophils (%) (Auto) 0.4, Neutrophils # (Auto) 7.2, Lymphocytes # (Auto) 1.8, Monocytes # (Auto) 1.3H, Eosinophils # (Auto) 0.4, Basophils # (Auto) 0.0, Nucleated Red Blood Cells % (auto) 0.0, Prothrombin Time 13.4, Prothromb Time International Ratio 1.01, Activated Partial Thromboplast Time 26.8, Anion Gap 5L, Glomerular Filtration Rate > 60.0, Lactic Acid Level 0.7, Blood Urea Nitrogen 13, Creatinine 0.88, Sodium Level 142, Potassium Level 4.9, Chloride Level 103, Carbon Dioxide Level 34H, Calcium Level 8.8, Total Creatine Kinase 28, Creatine Kinase MB 2.0, Creatine Kinase MB Relative Index 6.43H, Troponin I < 0.02, KL-Nfy-N-Type Natriuretic Peptide 139H 11/15/18 23:20: Blood Gas Bicarbonate Standard 26.7H, Arterial Blood pH 7.253L, Arterial Blood Partial Pressure CO2 74.1*H, Arterial Blood Partial Pressure O2 127.6H, Arterial Blood Total CO2 34.3H, Arterial Blood HCO3 32.0H, Arterial Blood Base Excess 2.5H, Arterial Blood Oxygen Saturation 98.5 11/16/18 04:30: Nucleated Red Blood Cells % (auto) 0.0, Anion Gap 6L, Glomerular Filtration Rate 57.5, Blood Urea Nitrogen 13, Creatinine 1.04, Sodium Level 137, Potassium Level 4.6, Chloride Level 97L, Carbon Dioxide Level 34H, Calcium Level 10.3#H 11/16/18 07:37: Blood Gas Bicarbonate Standard 28.4H, Arterial Blood pH 7.368, Arterial Blood Partial Pressure CO2 55.2H, Arterial Blood Partial Pressure O2 112.6H, Arterial Blood Total CO2 32.7H, Arterial Blood HCO3 31.1H, Arterial Blood Base Excess 4.3H, Arterial Blood Oxygen Saturation 98.6 CBC/BMP Laboratory Tests 11/15/18 21:14 Red Blood Count 4.40, Mean Corpuscular Volume 97.3 H, Mean Corpuscular Hemoglobin 29.3, Mean Corpuscular Hemoglobin Concent 30.1 L, Red Cell Distrib ution Width 15.2 H, Neutrophils (%) (Auto) 67.0 H, Lymphocytes (%) (Auto) 16.4 L, Monocytes (%) (Auto) 11.8 H, Eosinophils (%) (Auto) 3.7 H, Basophils (%) (Auto) 0.4, Neutrophils # (Auto) 7.2, Lymphocytes # (Auto) 1.8, Monocytes # (Auto) 1.3 H, Eosinophils # (Auto) 0.4, Basophils # (Auto) 0.0, Calcium Level 8.8, Total Creatine Kinase 28 11/16/18 04:30 Red Blood Count 4.60, Mean Corpuscular Volume 93.9, Mean Corpuscular Hemoglobin 28.3, Mean Corpuscular Hemoglobin Concent 30.1 L, Red Cell Distribution Width 14.7 H, Calcium Level 10.3 #H Microbiology Microbiology 11/15/18 Blood Culture, Received Pending NAVID ELLIOTT MD Nov 16, 2018 12:24
[2018-11-16] MEDS: SENNA 8.6 MG TAB (SENOKOT) PO SCH (20:43)
[2018-11-17 00:15] VITALS: BP 153/90
[2018-11-17] MEDS: IPRATROPIUM 0.5MG/ALBUTEROL 2.5MG INH SOL UD 3ML (DUONEB)(J7620) NEB SCH ×4 (01:43→19:42)
[2018-11-17 03:45] VITALS: BP 137/97
[2018-11-17] MEDS: PERCOCET 5MG/325MG TAB PO PRN ×4 (03:52→20:47)
[2018-11-17 04:15] LABS: HEMATOCRIT 36.8 % (36.0-47.0); HEMOGLOBIN 11.4 g/dl (12.0-15.5); MEAN CORPUSCULAR HEMOGLOBIN 28.4 pg (27.0-33.0); MEAN CORPUSCULAR VOLUME 91.8 fl (80.0-96.0); PLATELET COUNT, AUTOMATED 199 10^3/uL (150-450); RED BLOOD COUNT 4.01 10^6/uL (4.00-5.40); WHITE BLOOD COUNT 9.1 10^3/uL (4.0-10.0)
[2018-11-17 04:43] LABS: CALCIUM LEVEL 9.9 MG/DL (8.8-10.2); CREATININE FOR GFR 1.24 MG/DL (0.55-1.30); POTASSIUM SERUM 4.5 MEQ/L (3.5-5.1)
[2018-11-17 06:37] LABS: ABG HCO3 31.6 MEQ/L (22.0-26.0); ABG O2 SATURATION 97.6 % (95.0-99.0); ABG PARTIAL PRESSURE O2 95.5 mmHg (75.0-100.0); ABG STANDARD HCO3 29.9 MEQ/L (22.0-26.0); ABG TOTAL CO2 33.1 MEQ/L (23.0-31.0); ABG pH (ARTERIAL) 7.418 UNITS (7.350-7.450)
[2018-11-17 08:00] VITALS: BP 138/75
[2018-11-17] MEDS: MIDODRINE 5 MG TAB PO SCH ×2 (08:00→16:06)
[2018-11-17] MEDS: ESCITALOPRAM OXALATE 10 MG TAB (LEXAPRO) PO SCH (08:04)
[2018-11-17] MEDS: predniSONE 20 MG TAB PO SCH (08:05)
[2018-11-17] MEDS: FERROUS SULFATE 325MG TAB PO SCH (08:05)
[2018-11-17] MEDS: ALPRAZolam 0.5 MG TAB PO SCH ×2 (08:05→20:41)
[2018-11-17] MEDS: busPIRone 5 MG TAB PO SCH ×3 (08:05→20:41)
[2018-11-17] MEDS: FOLIC ACID 1 MG TAB PO SCH (08:06)
[2018-11-17] MEDS: RIVAROXABAN 10 MG TAB (XARELTO) PO SCH (08:06)
[2018-11-17] MEDS: SPIRONOLACTONE 25 MG TAB PO SCH ×2 (08:06→16:05)
[2018-11-17] MEDS: ASPIRIN 81 MG ENTERIC TAB PO SCH (08:06)
[2018-11-17] MEDS: lamoTRIgine 100MG TAB PO SCH (08:06)
[2018-11-17] MEDS: TORSEMIDE 20 MG TAB PO SCH (08:06)
[2018-11-17] MEDS: PANTOPRAZOLE 40MG TAB (PROTONIX) PO SCH (08:06)
--- NOTE | 2018-11-17 11:19 | IPNPDOC ---
Subjective Date Seen The patient was seen on 11/17/18. Subjective Chief Complaint/HPI Patient seen and examined at the bedside. Reports that she has been having more of a cough with productive yellow sputum. She has been started on by mouth prednisone this morning. Otherwise, denies any acute overnight events. She tolerated tabletop BiPAP with no acute issues. Objective Physical Examination General Exam: Positive: Alert, Cooperative, No Acute Distress ENT Exam: Positive: Atraumatic Neck Exam: Negative: JVD Chest Exam: Positive: Diminished (globally); Negative: Rales, Rhonchi, Wheezing Heart Exam: Positive: Rate Normal, Regular Rhythm Abdomen Exam: Positive: Normal bowel sounds, Soft; Negative: Tenderness Extremity Exam: Negative: Tenderness, Swelling Psych Exam: Positive: Mental status NL, Mood NL, Oriented x 3 Assessment /Plan Plan/VTE VTE Prophylaxis Ordered?: Yes VTE Exclusion Mechanical Proph: Other VTE Exclusion Pharmacological: Other Plan Acute on Chronic Hypercarbic Respiratory Failure Likely 2/2 mildly decompensated CHF state, Use of Benzo's Improved following BiPAP therapy Patient started on PO Prednisone this AM due to worsening cough, productive sputum Case discussed with Pulmonary on 11/16--patient qualifies for home BiPAP, will arrange this with CM/SW Patient has tolerated table top BiPAP well here CM/SW will be consulted to assist in the process of obtain the device. We will cont to monitor the patient Diastolic CHF Cont Current PO regimen of diuretics Depression / Anxiety On Xanax, Lexapro, BuSpar, Lamictal I did discuss risks associated with respiratory depression and the use of benzodiazepines and opiates with the patient at length. She maintains that she needs these medications to function given her chronic pain and anxiety. She has verbalized understanding of the judicious use of the aforementioned medications. Hx of Bilateral DVT, 2014 Cont full anticoagulation with Xarelto Dyslipidemia Cont Statin GERD Cont PPI DVT prophylaxis On Xarelto Dispo--We will downgrade the patient today. We will speak with PFS tomorrow to help obtain outpatient BiPAP device. VS, I&O, 24H, Fishbone Vital Signs/I&O Vital Signs Date Time Temp Pulse Resp B/P (MAP) Pulse Ox O2 Delivery O2 Flow Rate FiO2 11/17/18 08:35 18 1.0 11/17/18 08:00 98.0 95 138/75 (96) 94 6/1/19 08:12 25 11/16/18 00:15 NIPPV (BIPAP/CPAP) I&O- Last 24 Hours up to 6 AM 11/17/18 06:00 Intake Total 1800 ml Output Total 850 ml Balance 950 ml Laboratory Data 24H LABS Laboratory Tests 2 11/17/18 04:00: Nucleated Red Blood Cells % (auto) 0.0, Anion Gap 7L, Glomerular Filtration Rate 47.0, Blood Urea Nitrogen 30#H, Creatinine 1.24, Sodium Level 137, Potassium Level 4.5, Chloride Level 97L, Carbon Dioxide Level 33H, Calcium Level 9.9 11/17/18 06:31: Blood Gas Bicarbonate Standard 29.9H, Arterial Blood pH 7.418, Arterial Blood Partial Pressure CO2 50.0H, Arterial Blood Partial Pressure O2 95.5, Arterial Blood Total CO2 33.1H, Arterial Blood HCO3 31.6H, Arterial Blood Base Excess 6.0H, Arterial Blood Oxygen Saturation 97.6 CBC/BMP Laboratory Tests 11/17/18 04:00 Red Blood Count 4.01, Mean Corpuscular Volume 91.8, Mean Corpuscular Hemoglobin 28.4, Mean Corpuscular Hemoglobin Concent 31.0 L, Red Cell Distribution Width 14.4, Calcium Level 9.9 Microbiology Microbiology 11/15/18 Blood Culture - Preliminary, Resulted No growth after 24 hours . All specim... NAVID ELLIOTT MD Nov 17, 2018 11:19
[2018-11-17 14:00] VITALS: BP 128/84
--- NOTE | 2018-11-17 19:55 | IPN ---
DATE: 11/17/2018 The patient was seen and examined this morning during bedside rounds. She denies any increasing shortness of breath. However, she has noted some more cough recently. She has not noticed wheezing except when coughing. She has no chest pain. No abdominal pains. No nausea and vomiting. Yesterday night the patient used the tabletop BiPap and she tolerated it well. She did note some discomfort with the facemask but she was able to keep it on for most of the night. PHYSICAL EXAMINATION: Temperature 97.9, pulse 93, respirations 20, blood pressure 137/97, oxygen saturation 92% on 2 liters nasal cannula. GENERAL: The patient is an overweight female, is lying in bed with some shaking but is able to speak in complete sentences. Did not appear to be in acute respiratory distress. HEENT: Normocephalic, atraumatic. Mucous membranes are moist. Neck is supple. Trachea is midline. Unable to appreciate JVD due to neck habitus. CARDIAC: Diminished heart sounds but regular S1-S2. Unable to appreciate any murmurs. PULMONARY: She has decreased breath sounds bilaterally with some faint coarse wheezing more when coughing and some crackles at the bases. ABDOMEN: Obese and soft, nontender to palpation. LOWER EXTREMITIES: There is tenderness to palpation anteriorly in the shins but no significant lower extremity edema bilaterally. LABORATORY DATA: WBC 9.1, hemoglobin 11.4, platelets 199. Chemistry: Sodium is 137, potassium 4.5, chloride 97, bicarbonate 33, BUN 30, creatinine 1.24, glucose 135. ABG this morning on the tabletop BiPap with a pH of 7.418, pCO2 of 50, pO2 of 95.5. ASSESSMENT/PLAN: Ms. Alfred is a 58-year-old female with a history of end- stage COPD with chronic hypoxemic respiratory failure on nasal cannula oxygen supplementation, history of chronic hypercarbic respiratory failure, DVT / PE on Xarelto, diastolic CHF with pulmonary hypertension, hyperlipidemia, anxiety, depression who presented with increasing fatigue and weakness. The patient was found to have acute on chronic hypercarbic respiratory failure. She denied any increased shortness of breath, cough or wheezing. However, she did have some increased lower extremity edema in the past few days and her BNP was slightly elevated from her prior. She is also on medications that can cause sedation and hypoventilation and could cause potential worsening of her chronic hypercarbic respiratory failure. Patient's chronic hypercarbic respiratory failure may be in the setting of her end-stage COPD. She did have a home sleep study done as an outpatient which did not show any significant obstructive sleep apnea. - The patient can continue on tabletop BiPap at night with settings of 12/6 and FiO2 of 25%. - The patient qualifies for home noninvasive positive pressure ventilation due to her persistent chronic hypercarbic respiratory failure with a negative home sleep study for obstructive sleep apnea. Would order the patient a BiPap upon discharge. She is willing to use it and has been tolerating it well during this admission. - The patient was on Solu-Medrol for possible COPD exacerbation. She did not have any increasing wheezing, shortness of breath or cough initially, however, today she did report some increased cough overnight and she does have some more wheezing noted with coughing than previous. - Would therefore restart her with prednisone for COPD exacerbation with a taper. She does not have any evidence of infiltrate on her chest x-ray to suggest pneumonia. - Continue with her home diuretics and continue monitoring intake and output. - Continue nebulizer treatments and Acapella for pulmonary toilet. - Continue with nasal cannula supplementation at her usual 2 liters per minute. DVT prophylaxis with Xarelto. The patient will need followup with pulmonary 1-2 weeks after discharge. Please do not hesitate to call if any further questions or concerns. MTDD
[2018-11-17] MEDS: SENNA 8.6 MG TAB (SENOKOT) PO SCH (20:41)
[2018-11-17] MEDS: rOPINIRole 2MG TAB PO SCH (20:41)
[2018-11-17] MEDS: SIMVASTATIN 20 MG TAB PO SCH (20:41)
[2018-11-17 22:00] VITALS: BP 130/82
[2018-11-18] MEDS: PERCOCET 5MG/325MG TAB PO PRN ×6 (01:38→23:16)
[2018-11-18] MEDS: IPRATROPIUM 0.5MG/ALBUTEROL 2.5MG INH SOL UD 3ML (DUONEB)(J7620) NEB SCH ×4 (01:53→19:23)
[2018-11-18 06:00] VITALS: BP 143/88
[2018-11-18 06:24] LABS: HEMATOCRIT 36.5 % (36.0-47.0); HEMOGLOBIN 11.4 g/dl (12.0-15.5); MEAN CORPUSCULAR HEMOGLOBIN 29.3 pg (27.0-33.0); MEAN CORPUSCULAR HGB CONC 31.2 g/dl (32.0-36.5); MEAN CORPUSCULAR VOLUME 93.8 fl (80.0-96.0); PLATELET COUNT, AUTOMATED 187 10^3/uL (150-450); RED BLOOD COUNT 3.89 10^6/uL (4.00-5.40); WHITE BLOOD COUNT 10.8 10^3/uL (4.0-10.0)
[2018-11-18 06:46] LABS: CALCIUM LEVEL 9.1 MG/DL (8.8-10.2); CREATININE FOR GFR 1.14 MG/DL (0.55-1.30); GLOMERULAR FILTRATION RATE 51.8 (>45); POTASSIUM SERUM 4.3 MEQ/L (3.5-5.1)
[2018-11-18] MEDS: MIDODRINE 5 MG TAB PO SCH ×2 (08:00→15:19)
[2018-11-18] MEDS: RIVAROXABAN 10 MG TAB (XARELTO) PO SCH (08:28)
[2018-11-18] MEDS: FERROUS SULFATE 325MG TAB PO SCH (08:28)
[2018-11-18] MEDS: predniSONE 20 MG TAB PO SCH (08:28)
[2018-11-18] MEDS: PANTOPRAZOLE 40MG TAB (PROTONIX) PO SCH (08:28)
[2018-11-18] MEDS: busPIRone 5 MG TAB PO SCH ×3 (08:32→20:42)
[2018-11-18] MEDS: ALPRAZolam 0.5 MG TAB PO SCH ×2 (08:32→20:41)
[2018-11-18] MEDS: SPIRONOLACTONE 25 MG TAB PO SCH ×2 (08:32→15:18)
[2018-11-18] MEDS: ESCITALOPRAM OXALATE 10 MG TAB (LEXAPRO) PO SCH (08:32)
[2018-11-18] MEDS: FOLIC ACID 1 MG TAB PO SCH (08:33)
[2018-11-18] MEDS: ASPIRIN 81 MG ENTERIC TAB PO SCH (08:33)
[2018-11-18] MEDS: lamoTRIgine 100MG TAB PO SCH (08:33)
[2018-11-18] MEDS: TORSEMIDE 20 MG TAB PO SCH (08:33)
[2018-11-18 08:34] VITALS: BP 142/90
--- NOTE | 2018-11-18 14:43 | IPNPDOC ---
Subjective Date Seen The patient was seen on 11/18/18. Subjective Chief Complaint/HPI Patient seen and examined at the bedside. Reports that her respiratory status is stable at this time. Denies any acute overnight complaints. No events noted as per house staff. Objective Physical Examination General Exam: Positive: Alert, Cooperative, No Acute Distress ENT Exam: Positive: Atraumatic Neck Exam: Negative: JVD Chest Exam: Positive: Diminished (globally); Negative: Rales, Rhonchi, Wheezing Heart Exam: Positive: Rate Normal, Regular Rhythm Abdomen Exam: Positive: Normal bowel sounds, Soft; Negative: Tenderness Extremity Exam: Negative: Tenderness, Swelling Psych Exam: Positive: Mental status NL, Mood NL, Oriented x 3 Assessment /Plan Plan/VTE VTE Prophylaxis Ordered?: Yes VTE Exclusion Mechanical Proph: Other VTE Exclusion Pharmacological: Other Plan Acute on Chronic Hypercarbic Respiratory Failure Likely 2/2 mildly decompensated CHF state, Use of Benzo's Improved following BiPAP therapy Continue PO Prednisone Case discussed with Pulmonary on 11/16--patient qualifies for home BiPAP, will arrange this with CM/SW Patient has tolerated table top BiPAP well here CM/SW on consult to assist in the process of obtain the device. We will cont to monitor the patient Diastolic CHF Cont Current PO regimen of diuretics Depression / Anxiety On Xanax, Lexapro, BuSpar, Lamictal I did discuss risks associated with respiratory depression and the use of benzodiazepines and opiates with the patient at length. She maintains that she needs these medications to function given her chronic pain and anxiety. She has verbalized understanding of the judicious use of the aforementioned medications. Hx of Bilateral DVT, 2014 Cont full anticoagulation with Xarelto Dyslipidemia Cont Statin GERD Cont PPI DVT prophylaxis On Xarelto Dispo--PFS on board to obtain outpatient BiPAP device. Anticipate D/C home in 24-48hrs, once device is obtained. VS, I&O, 24H, Fishbone Vital Signs/I&O Vital Signs Date Time Temp Pulse Resp B/P (MAP) Pulse Ox O2 Delivery O2 Flow Rate FiO2 11/18/18 10:45 18 11/18/18 08:34 142/90 (107) 11/18/18 06:21 94 11/18/18 06:00 97.9 109 2.0 11/16/18 08:12 25 11/16/18 00:15 NIPPV (BIPAP/CPAP) I&O- Last 24 Hours up to 6 AM 11/18/18 06:00 Intake Total 1260 ml Output Total 350 ml Balance 910 ml Laboratory Data 24H LABS Laboratory Tests 2 11/18/18 05:34: Nucleated Red Blood Cells % (auto) 0.0, Anion Gap 3L, Glomerular Filtration Rate 51.8, Blood Urea Nitrogen 40H, Creatinine 1.14, Sodium Level 138, Potassium Level 4.3, Chloride Level 101, Carbon Dioxide Level 34H, Calcium Level 9.1 CBC/BMP Laboratory Tests 11/18/18 05:34 Red Blood Count 3.89 L, Mean Corpuscular Volume 93.8, Mean Corpuscular Hemoglobin 29.3, Mean Corpuscular Hemoglobin Concent 31.2 L, Red Cell Distribution Width 14.9 H, Calcium Level 9.1 Microbiology Microbiology 11/15/18 Blood Culture - Preliminary, Resulted No Growth after 48 hours. All Specime... NAVID ELLIOTT MD Nov 18, 2018 14:43
[2018-11-18 15:19] VITALS: BP 135/91
[2018-11-18] MEDS: SENNA 8.6 MG TAB (SENOKOT) PO SCH (20:41)
[2018-11-18] MEDS: rOPINIRole 2MG TAB PO SCH (20:42)
[2018-11-18] MEDS: SIMVASTATIN 20 MG TAB PO SCH (20:42)
[2018-11-18 22:00] VITALS: BP 131/91
[2018-11-19] MEDS: IPRATROPIUM 0.5MG/ALBUTEROL 2.5MG INH SOL UD 3ML (DUONEB)(J7620) NEB SCH ×4 (00:44→20:40)
[2018-11-19] MEDS: PERCOCET 5MG/325MG TAB PO PRN ×5 (04:26→21:08)
[2018-11-19 06:00] VITALS: BP 137/96
[2018-11-19 06:25] LABS: HEMATOCRIT 35.9 % (36.0-47.0); HEMOGLOBIN 10.9 g/dl (12.0-15.5); MEAN CORPUSCULAR HEMOGLOBIN 28.2 pg (27.0-33.0); MEAN CORPUSCULAR HGB CONC 30.4 g/dl (32.0-36.5); MEAN CORPUSCULAR VOLUME 92.8 fl (80.0-96.0); PLATELET COUNT, AUTOMATED 183 10^3/uL (150-450); RED BLOOD COUNT 3.87 10^6/uL (4.00-5.40); WHITE BLOOD COUNT 10.2 10^3/uL (4.0-10.0)
[2018-11-19 06:43] LABS: BLOOD UREA NITROGEN 35 MG/DL (7-18); CALCIUM LEVEL 9.3 MG/DL (8.8-10.2); CARBON DIOXIDE LEVEL 33 MEQ/L (21-32); CHLORIDE LEVEL 102 MEQ/L (98-107); GLOMERULAR FILTRATION RATE > 60.0 (>45); GLUCOSE, FASTING 101 MG/DL (70-100); POTASSIUM SERUM 4.4 MEQ/L (3.5-5.1); SODIUM LEVEL 140 MEQ/L (136-145)
[2018-11-19] MEDS: MIDODRINE 5 MG TAB PO SCH ×2 (08:00→16:00)
[2018-11-19] MEDS: ALPRAZolam 0.5 MG TAB PO SCH ×2 (08:48→21:08)
[2018-11-19] MEDS: predniSONE 20 MG TAB PO SCH (08:48)
[2018-11-19] MEDS: lamoTRIgine 100MG TAB PO SCH (08:48)
[2018-11-19] MEDS: busPIRone 5 MG TAB PO SCH ×3 (08:48→21:08)
[2018-11-19] MEDS: PANTOPRAZOLE 40MG TAB (PROTONIX) PO SCH (08:48)
[2018-11-19] MEDS: SPIRONOLACTONE 25 MG TAB PO SCH ×2 (08:49→16:32)
[2018-11-19] MEDS: ESCITALOPRAM OXALATE 10 MG TAB (LEXAPRO) PO SCH (08:49)
[2018-11-19] MEDS: FOLIC ACID 1 MG TAB PO SCH (08:49)
[2018-11-19] MEDS: TORSEMIDE 20 MG TAB PO SCH (08:49)
[2018-11-19] MEDS: RIVAROXABAN 10 MG TAB (XARELTO) PO SCH (08:49)
[2018-11-19] MEDS: FERROUS SULFATE 325MG TAB PO SCH (08:49)
[2018-11-19] MEDS: ASPIRIN 81 MG ENTERIC TAB PO SCH (08:49)
--- NOTE | 2018-11-19 10:30 | IPNPDOC ---
Subjective Date Seen The patient was seen on 11/19/18. Subjective Chief Complaint/HPI Patient seen and examined at the bedside this morning. Denies any worsening of her cough or shortness of breath. Notes that she has been tolerating her BiPAP therapy overnight without any acute issues. No overnight events noted. Objective Physical Examination General Exam: Positive: Alert, Cooperative, No Acute Distress ENT Exam: Positive: Atraumatic Neck Exam: Negative: JVD Chest Exam: Positive: Diminished (globally); Negative: Rales, Rhonchi, Wheezing Heart Exam: Positive: Rate Normal, Regular Rhythm Abdomen Exam: Positive: Normal bowel sounds, Soft; Negative: Tenderness Extremity Exam: Negative: Tenderness, Swelling Psych Exam: Positive: Mental status NL, Mood NL, Oriented x 3 Assessment /Plan Plan/VTE VTE Prophylaxis Ordered?: Yes VTE Exclusion Mechanical Proph: Other VTE Exclusion Pharmacological: Other Plan Acute on Chronic Hypercarbic Respiratory Failure Likely 2/2 mildly decompensated CHF state, Use of Benzo's Improved following BiPAP therapy Continue PO Prednisone Case discussed with Pulmonary on 11/16--patient qualifies for home BiPAP, will arrange this with CM/SW Patient has tolerated table top BiPAP well here CM/SW on consult to assist in the process of obtain the device-->Patient will need an overnight nocturnal pulse oximetry on RA, this has been ordered for tonight We will cont to monitor the patient Diastolic CHF Cont Current PO regimen of diuretics Depression / Anxiety On Xanax, Lexapro, BuSpar, Lamictal I did discuss risks associated with respiratory depression and the use of benzodiazepines and opiates with the patient at length. She maintains that she needs these medications to function given her chronic pain and anxiety. She has verbalized understanding of the judicious use of the aforementioned medications. Hx of Bilateral DVT, 2014 Cont full anticoagulation with Xarelto Dyslipidemia Cont Statin GERD Cont PPI DVT prophylaxis On Xarelto Dispo--PFS on board to obtain outpatient BiPAP device. Anticipate D/C home once device is obtained VS, I&O, 24H, Fishbone Vital Signs/I&O Vital Signs Date Time Temp Pulse Resp B/P (MAP) Pulse Ox O2 Delivery O2 Flow Rate FiO2 11/19/18 08:48 20 11/19/18 06:00 96.6 107 137/96 (110) 94 11/18/18 22:00 0.0 11/16/18 08:12 25 11/16/18 00:15 NIPPV (BIPAP/CPAP) I&O- Last 24 Hours up to 6 AM 11/19/18 05:59 Intake Total 690 ml Output Total 2160 ml Balance -1470 ml Laboratory Data 24H LABS Laboratory Tests 2 11/19/18 06:06: Nucleated Red Blood Cells % (auto) 0.0, Anion Gap 5L, Glomerular Filtration Rate > 60.0, Blood Urea Nitrogen 35H, Creatinine 0.90, Sodium Level 140, Potassium Level 4.4, Chloride Level 102, Carbon Dioxide Level 33H, Calcium Level 9.3 CBC/BMP Laboratory Tests 11/19/18 06:06 Red Blood Count 3.87 L, Mean Corpuscular Volume 92.8, Mean Corpuscular Hemoglobin 28.2, Mean Corpuscular Hemoglobin Concent 30.4 L, Red Cell Distribution Width 15.2 H, Calcium Level 9.3 Microbiology Microbiology 11/15/18 Blood Culture - Preliminary, Resulted No Growth after 72 hours. All specime... NAVID ELLIOTT MD Nov 19, 2018 10:30
[2018-11-19 13:37] VITALS: BP 141/95
[2018-11-19] MEDS: SIMVASTATIN 20 MG TAB PO SCH (21:08)
[2018-11-19] MEDS: SENNA 8.6 MG TAB (SENOKOT) PO SCH (21:08)
[2018-11-19] MEDS: rOPINIRole 2MG TAB PO SCH (21:08)
[2018-11-19 22:00] VITALS: BP 142/91
[2018-11-19] MEDS: IPRATROPIUM 0.5MG/ALBUTEROL 2.5MG INH SOL UD 3ML (DUONEB)(J7620) NEB PRN (23:29)
[2018-11-20] MEDS: IPRATROPIUM 0.5MG/ALBUTEROL 2.5MG INH SOL UD 3ML (DUONEB)(J7620) NEB SCH ×5 (01:46→22:08)
[2018-11-20] MEDS: PERCOCET 5MG/325MG TAB PO PRN ×5 (02:22→20:14)
[2018-11-20 06:00] VITALS: BP 140/85
[2018-11-20 06:02] LABS: HEMATOCRIT 37.6 % (36.0-47.0); HEMOGLOBIN 11.5 g/dl (12.0-15.5); MEAN CORPUSCULAR HEMOGLOBIN 29.2 pg (27.0-33.0); MEAN CORPUSCULAR HGB CONC 30.6 g/dl (32.0-36.5); MEAN CORPUSCULAR VOLUME 95.4 fl (80.0-96.0); PLATELET COUNT, AUTOMATED 191 10^3/uL (150-450); RED BLOOD COUNT 3.94 10^6/uL (4.00-5.40); WHITE BLOOD COUNT 10.1 10^3/uL (4.0-10.0)
[2018-11-20 06:30] LABS: BLOOD UREA NITROGEN 31 MG/DL (7-18); CALCIUM LEVEL 8.7 MG/DL (8.8-10.2); CARBON DIOXIDE LEVEL 32 MEQ/L (21-32); CHLORIDE LEVEL 102 MEQ/L (98-107); CREATININE FOR GFR 0.86 MG/DL (0.55-1.30); GLOMERULAR FILTRATION RATE > 60.0 (>45); GLUCOSE, FASTING 87 MG/DL (70-100); POTASSIUM SERUM 4.5 MEQ/L (3.5-5.1); SODIUM LEVEL 138 MEQ/L (136-145)
[2018-11-20] MEDS: MIDODRINE 5 MG TAB PO SCH ×3 (08:00→15:17)
[2018-11-20] MEDS: RIVAROXABAN 10 MG TAB (XARELTO) PO SCH (08:44)
[2018-11-20] MEDS: FOLIC ACID 1 MG TAB PO SCH (08:44)
[2018-11-20] MEDS: PANTOPRAZOLE 40MG TAB (PROTONIX) PO SCH (08:44)
[2018-11-20] MEDS: ASPIRIN 81 MG ENTERIC TAB PO SCH (08:44)
[2018-11-20] MEDS: ALPRAZolam 0.5 MG TAB PO SCH ×2 (08:44→20:15)
[2018-11-20] MEDS: predniSONE 20 MG TAB PO SCH (08:44)
[2018-11-20] MEDS: SPIRONOLACTONE 25 MG TAB PO SCH ×2 (08:44→15:15)
[2018-11-20] MEDS: busPIRone 5 MG TAB PO SCH ×3 (08:44→20:15)
[2018-11-20] MEDS: lamoTRIgine 100MG TAB PO SCH (08:44)
[2018-11-20] MEDS: ESCITALOPRAM OXALATE 10 MG TAB (LEXAPRO) PO SCH (08:44)
[2018-11-20] MEDS: TORSEMIDE 20 MG TAB PO SCH (08:45)
[2018-11-20] MEDS: FERROUS SULFATE 325MG TAB PO SCH (08:45)
[2018-11-20 11:48] LABS: ABG BASE EXCESS 6.3 (-2.0-2.0); ABG HCO3 31.5 MEQ/L (22.0-26.0); ABG O2 SATURATION 95.3 % (95.0-99.0); ABG PARTIAL PRESSURE CO2 47.4 mmHg (35.0-45.0); ABG STANDARD HCO3 30.2 MEQ/L (22.0-26.0); ABG TOTAL CO2 32.9 MEQ/L (23.0-31.0)
[2018-11-20 15:17] VITALS: BP 124/70
--- NOTE | 2018-11-20 15:30 | IPNPDOC ---
Subjective Date Seen The patient was seen on 11/20/18. Subjective Chief Complaint/HPI Pt was seen and examined at bedside. Pt in no acute distress. Cough / Wheezing stable. Dyspnea improves while pt on BiPAP. Requires overnight 5min oximetry. Events since last encounter No overnights events. General: Denies: ROS Unobtainable, Chills, Night Sweats, Fatigue, Malaise, Normal Appetite, Other Symptoms Constitutional: Denies: Chills, Fever, Malaise, Night Sweats, Weakness, Fatigue, Weight Loss, Lethargy, Other Eyes: Denies: Pain, Vision change, Conjunctivae inflammation, Eyelid inflammation, Redness, Other ENT: Denies: Head Aches, Ear Pain, Dysphagia, Sinus Congestion, Post Nasal Drip, Sore Throat, Epistaxis, Other Symptoms Skin: Denies: Rash, Lesions, Jaundice, Bruising, Itching, Dry, Breakdown, Nail Changes, Other Pulmonary: Reports: Dyspnea, Cough, Pleuritic Chest Pain, Other Symptoms Cardiovascular: Denies: Chest Pain, Palpitations, Orthopnea, Paroxysmal Noc. Dyspnea, Edema, Lt Headedness, Other Symptoms Gastrointestinal: Denies: Nausea, Vomiting, Abdominal Pain, Diarrhea, Constipation, Melena, Hematochezia, Other Symptoms Genitourinary: Denies: Dysuria, Frequency, Incontinence, Hematuria, Retention, Other Symptoms Hematologic: Denies: Bruising, Bleeding Excessively, Petecchia, Purpura, Enlarged Lymph Nodes, Other Hematologic Musculoskeletal: Denies: Neck Pain, Back Pain, Shoulder Pain, Arm Pain, Hand Pain, Leg Pain, Foot Pain, Joint Pain, Muscle Pain, Spasms, Other Symptoms Objective Physical Examination General Exam: Positive: Alert, Cooperative, No Acute Distress ENT Exam: Positive: Atraumatic Neck Exam: Negative: JVD Chest Exam: Positive: Diminished (globally); Negative: Rales, Rhonchi, Wheezing Heart Exam: Positive: Rate Normal, Regular Rhythm Abdomen Exam: Positive: Normal bowel sounds, Soft; Negative: Tenderness Extremity Exam: Negative: Tenderness, Swelling Psych Exam: Positive: Mental status NL, Mood NL, Oriented x 3 Assessment /Plan Assessment Acute on Chronic Hypercarbic Respiratory Failure Possible secondary to End Stage COPD as well as diastolic CHF Continue short acting beta agonist along with anticholinergic, PRN and ATC Start Inhaled CS Continue PO Prednisone No antibiotics at this time due to no evidence of new consolidation Provide O2 supplementation as needed Continue BiPAP for worsening of dyspnea Please perform overnight oximetry for 5 mins on RA and document O2 sats Cont Current PO regimen of diuretics Cont current meds SW on board to provide pt with BiPAP at home. DVT prophylaxis Xarelto Plan/VTE VTE Prophylaxis Ordered?: Yes VTE Exclusion Mechanical Proph: Other VTE Exclusion Pharmacological: Other VS, I&O, 24H, Fishbone Vital Signs/I&O Vital Signs Date Time Temp Pulse Resp B/P (MAP) Pulse Ox O2 Delivery O2 Flow Rate FiO2 11/20/18 13:28 124 11/20/18 11:27 16 11/20/18 06:29 96 11/20/18 06:00 98.0 140/85 (103) 11/18/18 22:00 0.0 11/16/18 08:12 25 11/16/18 00:15 NIPPV (BIPAP/CPAP) I&O- Last 24 Hours up to 6 AM 11/20/18 06:00 Intake Total 1260 ml Output Total 1825 ml Balance -565 ml Laboratory Data 24H LABS Laboratory Tests 2 11/20/18 05:28: Nucleated Red Blood Cells % (auto) 0.0, Anion Gap 4L, Glomerular Filtration Rate > 60.0, Blood Urea Nitrogen 31H, Creatinine 0.86, Sodium Level 138, Potassium Level 4.5, Chloride Level 102, Carbon Dioxide Level 32, Calcium Level 8.7L 11/20/18 11:34: Blood Gas Bicarbonate Standard 30.2H, Arterial Blood pH 7.440, Arterial Blood Partial Pressure CO2 47.4H, Arterial Blood Partial Pressure O2 72.0L, Arterial Blood Total CO2 32.9H, Arterial Blood HCO3 31.5H, Arterial Blood Base Excess 6.3H, Arterial Blood Oxygen Saturation 95.3 CBC/BMP Laboratory Tests 11/20/18 05:28 Red Blood Count 3.94 L, Mean Corpuscular Volume 95.4, Mean Corpuscular Hemoglobin 29.2, Mean Corpuscular Hemoglobin Concent 30.6 L, Red Cell Distribution Width 14.9 H, Calcium Level 8.7 L Microbiology Microbiology 11/15/18 Blood Culture - Preliminary, Resulted No Growth after 72 hours. All specime... RUTHIE COLÓN MD Nov 20, 2018 15:30
[2018-11-20] MEDS: BUDESONIDE 0.5 MG/2 ML INHALATION SUSPENSION INH SCH (19:30)
[2018-11-20] MEDS: rOPINIRole 2MG TAB PO SCH (20:14)
[2018-11-20] MEDS: SIMVASTATIN 20 MG TAB PO SCH (20:15)
[2018-11-20] MEDS: SENNA 8.6 MG TAB (SENOKOT) PO SCH (20:15)
[2018-11-20 22:00] VITALS: BP 121/72
[2018-11-21] MEDS: PERCOCET 5MG/325MG TAB PO PRN ×6 (01:01→22:22)
[2018-11-21] MEDS: IPRATROPIUM 0.5MG/ALBUTEROL 2.5MG INH SOL UD 3ML (DUONEB)(J7620) NEB PRN ×2 (05:51→11:13)
[2018-11-21 05:55] LABS: ABG BASE EXCESS 5.7 (-2.0-2.0); ABG HCO3 30.6 MEQ/L (22.0-26.0); ABG O2 SATURATION 97.1 % (95.0-99.0); ABG PARTIAL PRESSURE CO2 45.4 mmHg (35.0-45.0); ABG PARTIAL PRESSURE O2 83.4 mmHg (75.0-100.0); ABG STANDARD HCO3 29.6 MEQ/L (22.0-26.0); ABG pH (ARTERIAL) 7.446 UNITS (7.350-7.450)
[2018-11-21 06:00] VITALS: BP 130/76
[2018-11-21 06:19] LABS: HEMATOCRIT 38.5 % (36.0-47.0); HEMOGLOBIN 11.9 g/dl (12.0-15.5); MEAN CORPUSCULAR HEMOGLOBIN 28.5 pg (27.0-33.0); MEAN CORPUSCULAR HGB CONC 30.9 g/dl (32.0-36.5); MEAN CORPUSCULAR VOLUME 92.3 fl (80.0-96.0); PLATELET COUNT, AUTOMATED 213 10^3/uL (150-450); RED BLOOD COUNT 4.17 10^6/uL (4.00-5.40); WHITE BLOOD COUNT 11.1 10^3/uL (4.0-10.0)
[2018-11-21 06:49] LABS: BLOOD UREA NITROGEN 31 MG/DL (7-18); CARBON DIOXIDE LEVEL 32 MEQ/L (21-32); CHLORIDE LEVEL 100 MEQ/L (98-107); CREATININE FOR GFR 0.85 MG/DL (0.55-1.30); GLOMERULAR FILTRATION RATE > 60.0 (>45); GLUCOSE, FASTING 92 MG/DL (70-100); POTASSIUM SERUM 4.1 MEQ/L (3.5-5.1); SODIUM LEVEL 139 MEQ/L (136-145)
[2018-11-21] MEDS: BUDESONIDE 0.5 MG/2 ML INHALATION SUSPENSION INH SCH ×2 (07:06→20:16)
[2018-11-21] MEDS: IPRATROPIUM 0.5MG/ALBUTEROL 2.5MG INH SOL UD 3ML (DUONEB)(J7620) NEB SCH ×3 (07:06→20:16)
[2018-11-21] MEDS: MIDODRINE 5 MG TAB PO SCH ×2 (08:00→15:04)
[2018-11-21] MEDS: busPIRone 5 MG TAB PO SCH ×3 (08:10→22:21)
[2018-11-21] MEDS: ESCITALOPRAM OXALATE 10 MG TAB (LEXAPRO) PO SCH (08:10)
[2018-11-21] MEDS: SPIRONOLACTONE 25 MG TAB PO SCH ×2 (08:11→15:04)
[2018-11-21] MEDS: TORSEMIDE 20 MG TAB PO SCH (08:11)
[2018-11-21] MEDS: FERROUS SULFATE 325MG TAB PO SCH (08:11)
[2018-11-21] MEDS: ALPRAZolam 0.5 MG TAB PO SCH ×2 (08:11→22:21)
[2018-11-21] MEDS: FOLIC ACID 1 MG TAB PO SCH (08:11)
[2018-11-21] MEDS: PANTOPRAZOLE 40MG TAB (PROTONIX) PO SCH (08:11)
[2018-11-21] MEDS: predniSONE 20 MG TAB PO SCH (08:11)
[2018-11-21] MEDS: RIVAROXABAN 10 MG TAB (XARELTO) PO SCH (08:11)
[2018-11-21] MEDS: lamoTRIgine 100MG TAB PO SCH (08:11)
[2018-11-21] MEDS: ASPIRIN 81 MG ENTERIC TAB PO SCH (08:11)
--- NOTE | 2018-11-21 11:32 | NOCOX ---
DATE OF PROCEDURE: 11/20/2018 The nocturnal oximetry study was report was performed on room air. A total of 7 hours and 17 minutes was recorded for valid sampling. The highest O2 sat was 100%. The lowest was 90%. The total time spent with an O2 sat less than 88% was 0-minutes. The desaturation event index was approximately 2.3. Graphically, there was no significant oxygen saturation variability overnight. There were some periods of heart rate variability. IMPRESSION: Normal nocturnal oximetry study. No significant desaturations overnight. MTDD
[2018-11-21] MEDS ORDERED: ROPI2TAB PO (15:42)
[2018-11-21 22:00] VITALS: BP 129/94
[2018-11-21] MEDS: SENNA 8.6 MG TAB (SENOKOT) PO SCH (22:21)
[2018-11-21] MEDS: rOPINIRole 2MG TAB PO SCH (22:21)
[2018-11-21] MEDS: SIMVASTATIN 20 MG TAB PO SCH (22:21)
[2018-11-22] MEDS: IPRATROPIUM 0.5MG/ALBUTEROL 2.5MG INH SOL UD 3ML (DUONEB)(J7620) NEB PRN ×2 (00:03→04:11)
[2018-11-22] MEDS: IPRATROPIUM 0.5MG/ALBUTEROL 2.5MG INH SOL UD 3ML (DUONEB)(J7620) NEB SCH ×2 (02:00→06:13)
[2018-11-22] MEDS: PERCOCET 5MG/325MG TAB PO PRN ×3 (02:32→10:38)
--- NOTE | 2018-11-22 04:58 | IPNPDOC ---
Text Note Date of Service The patient was seen on 11/21/18. NOTE Chief Complaint/HPI Pt was seen and examined at bedside. Overnight pulse oximetry reviewed. within normal range. No acute distress. Pt has anxiety which exacerbates respiratory distress. Events since last encounter No overnights events. General: Denies: ROS Unobtainable, Chills, Night Sweats, Fatigue, Malaise, Normal Appetite, Other Symptoms Constitutional: Denies: Chills, Fever, Malaise, Night Sweats, Weakness, Fatigue, Weight Loss, Lethargy, Other Eyes: Denies: Pain, Vision change, Conjunctivae inflammation, Eyelid inflammation, Redness, Other ENT: Denies: Head Aches, Ear Pain, Dysphagia, Sinus Congestion, Post Nasal Drip, Sore Throat, Epistaxis, Other Symptoms Skin: Denies: Rash, Lesions, Jaundice, Bruising, Itching, Dry, Breakdown, Nail Changes, Other Pulmonary: Reports: Dyspnea, Cough, Pleuritic Chest Pain, Other Symptoms Cardiovascular: Denies: Chest Pain, Palpitations, Orthopnea, Paroxysmal Noc. Dyspnea, Edema, Lt Headedness, Other Symptoms Gastrointestinal: Denies: Nausea, Vomiting, Abdominal Pain, Diarrhea, Constipation, Melena, Hematochezia, Other Symptoms Genitourinary: Denies: Dysuria, Frequency, Incontinence, Hematuria, Retention, Other Symptoms Hematologic: Denies: Bruising, Bleeding Excessively, Petecchia, Purpura, Enlarged Lymph Nodes, Other Hematologic Musculoskeletal: Denies: Neck Pain, Back Pain, Shoulder Pain, Arm Pain, Hand Pain, Leg Pain, Foot Pain, Joint Pain, Muscle Pain, Spasms, Other Symptoms Physical Examination General Exam: Positive: Alert, Cooperative, No Acute Distress ENT Exam: Positive: Atraumatic Neck Exam: Negative: JVD Chest Exam: Positive: Diminished (globally); Negative: Rales, Rhonchi, Wheezing Heart Exam: Positive: Rate Normal, Regular Rhythm Abdomen Exam: Positive: Normal bowel sounds, Soft; Negative: Tenderness Extremity Exam: Negative: Tenderness, Swelling Psych Exam: Positive: Mental status NL, Mood NL, Oriented x 3 Vital Signs Date Time Temp Pulse Resp B/P (MAP) Pulse Ox O2 Delivery O2 Flow Rate FiO2 11/22/18 02:32 16 11/21/18 23:00 18 11/21/18 22:22 18 11/21/18 22:00 97.8 105 20 129/94 (106) 95 11/21/18 17:42 16 11/21/18 13:17 16 11/21/18 09:09 16 11/21/18 06:00 97.7 115 18 130/76 (94) 95 11/21/18 05:52 105 11/21/18 05:04 18 Intake & Output 11/22/18 06:00 Intake Total 1560 ml Output Total 300 ml Balance 1260 ml Laboratory Tests 11/21/18 05:23: White Blood Count 11.1H, Red Blood Count 4.17, Hemoglobin 11.9L, Hematocrit 38.5, Mean Corpuscular Volume 92.3, Mean Corpuscular Hemoglobin 28.5, Mean Corpuscular Hemoglobin Concent 30.9L, Red Cell Distribution Width 15.0H, Platelet Count 213, Nucleated Red Blood Cells % (auto) 0.0, Blood Urea Nitrogen 31H, Creatinine 0.85, Sodium Level 139, Potassium Level 4.1, Chloride Level 100, Carbon Dioxide Level 32, Calcium Level 9.0, Anion Gap 7L, Glomerular Filtration Rate > 60.0, Fasting Glucose 92 11/21/18 05:45: Blood Gas Bicarbonate Standard 29.6H, Arterial Blood pH 7.446, Arterial Blood Partial Pressure CO2 45.4H, Arterial Blood Partial Pressure O2 83.4, Arterial Blood Total CO2 32.0H, Arterial Blood HCO3 30.6H, Arterial Blood Base Excess 5.7H, Arterial Blood Oxygen Saturation 97.1 Microbiology 11/15/18 Blood Culture - Final, Complete NO GROWTH AFTER 5 DAYS Current Medications Medications (Trade) Dose Ordered Sig/Milana Route PRN Reason Start Time Stop Time Status Last Admin Dose Admin Albuterol/ Ipratropium (Duoneb (Ipr 0.5mg/Alb 2.5mg)) 3 ml Q2HP PRN NEB SOB/WHEEZING 11/19/18 17:15 11/22/18 04:11 3 ML Alprazolam (Xanax) 1 mg BID PO 11/15/18 21:00 11/21/18 22:21 1 MG Aspirin (Ecotrin) 81 mg DAILY PO 11/16/18 09:00 11/21/18 08:11 81 MG Budesonide (Pulmicort) 0.5 mg RBID INH 11/20/18 20:00 11/21/18 20:16 0.5 MG Buspirone HCl (Buspar) 5 mg TID PO 11/16/18 09:00 11/21/18 22:21 5 MG Escitalopram Oxalate (Lexapro) 20 mg DAILY PO 11/16/18 09:00 11/21/18 08:10 20 MG Ferrous Sulfate (Ferrous Sulfate) 325 mg DAILY PO 11/16/18 09:00 11/21/18 08:11 325 MG Folic Acid (Folic Acid) 1 mg DAILY PO 11/16/18 09:00 11/21/18 08:11 1 MG Lamotrigine (LaMICtal) 150 mg QAM PO 11/16/18 09:00 11/21/18 08:11 150 MG Midodrine (Proamatine) 5 mg BID@0800,1600 PO 11/16/18 08:00 11/17/18 16:06 5 MG Oxycodone/ Acetaminophen (Percocet 5mg/ 325mg Tablet) 1 tab Q4H PRN PO PAIN 11/15/18 23:15 11/22/18 02:32 1 TAB Pantoprazole Sodium (Protonix) 40 mg DAILY PO 11/16/18 09:00 11/21/18 08:11 40 MG Prednisone (Deltasone) 40 mg DAILY PO 11/17/18 09:00 11/21/18 08:11 40 MG Rivaroxaban (Xarelto) 10 mg DAILY@0800 PO 11/16/18 08:00 11/21/18 08:11 10 MG Ropinirole HCl (Requip) 2 mg QHS PO 11/17/18 21:00 11/21/18 22:21 2 MG Senna (Senokot) 2 tab QHS PO 11/15/18 21:00 11/21/18 22:21 2 TAB Simvastatin (Zocor) 20 mg QHS PO 11/15/18 21:00 11/21/18 22:21 20 MG Spironolactone (Aldactone) 25 mg BID@0800,1600 PO 11/16/18 08:00 11/21/18 15:04 25 MG Torsemide (Demadex) 20 mg DAILY PO 11/16/18 09:00 11/21/18 08:11 20 MG Assessment Acute on Chronic Hypercarbic Respiratory Failure Possible secondary to End Stage COPD as well as diastolic CHF Continue short acting beta agonist along with anticholinergic, PRN and ATC Start Inhaled CS Continue PO Prednisone No antibiotics at this time due to no evidence of new consolidation Provide O2 supplementation as needed Continue BiPAP for worsening of dyspnea Please perform overnight oximetry for 5 mins on RA and document O2 sats Cont Current PO regimen of diuretics Cont current meds DVT prophylaxis Xarelto VS,Fishbone, I+O VS, Fishbone, I+O Laboratory Tests 11/21/18 05:23 Red Blood Count 4.17, Mean Corpuscular Volume 92.3, Mean Corpuscular Hemoglobin 28.5, Mean Corpuscular Hemoglobin Concent 30.9 L, Red Cell Distribution Width 15.0 H, Calcium Level 9.0 Vital Signs Date Time Temp Pulse Resp B/P (MAP) Pulse Ox O2 Delivery O2 Flow Rate FiO2 11/22/18 02:32 16 11/21/18 22:00 97.8 105 129/94 (106) 95 11/20/18 22:45 Room Air 11/18/18 22:00 0.0 11/16/18 08:12 25 I&O- Last 24 Hours up to 6 AM 11/22/18 06:00 Intake Total 1560 ml Output Total 300 ml Balance 1260 ml RUTHIE COLÓN MD Nov 22, 2018 04:58
[2018-11-22 06:00] VITALS: BP 136/91
[2018-11-22] MEDS: BUDESONIDE 0.5 MG/2 ML INHALATION SUSPENSION INH SCH (06:13)
[2018-11-22 06:44] LABS: HEMATOCRIT 38.7 % (36.0-47.0); HEMOGLOBIN 11.9 g/dl (12.0-15.5); MEAN CORPUSCULAR HEMOGLOBIN 28.5 pg (27.0-33.0); MEAN CORPUSCULAR HGB CONC 30.7 g/dl (32.0-36.5); MEAN CORPUSCULAR VOLUME 92.8 fl (80.0-96.0); PLATELET COUNT, AUTOMATED 256 10^3/uL (150-450); RED BLOOD COUNT 4.17 10^6/uL (4.00-5.40); WHITE BLOOD COUNT 13.4 10^3/uL (4.0-10.0)
[2018-11-22 07:06] LABS: BLOOD UREA NITROGEN 37 MG/DL (7-18); CALCIUM LEVEL 9.1 MG/DL (8.8-10.2); CARBON DIOXIDE LEVEL 31 MEQ/L (21-32); CHLORIDE LEVEL 101 MEQ/L (98-107); CREATININE FOR GFR 0.99 MG/DL (0.55-1.30); GLOMERULAR FILTRATION RATE > 60.0 (>45); GLUCOSE, FASTING 96 MG/DL (70-100); POTASSIUM SERUM 4.3 MEQ/L (3.5-5.1); SODIUM LEVEL 138 MEQ/L (136-145)
[2018-11-22] MEDS: MIDODRINE 5 MG TAB PO SCH ×2 (08:00→08:59)
[2018-11-22] MEDS: busPIRone 5 MG TAB PO SCH (08:58)
[2018-11-22] MEDS: PANTOPRAZOLE 40MG TAB (PROTONIX) PO SCH (09:02)
[2018-11-22] MEDS: predniSONE 20 MG TAB PO SCH (09:03)
[2018-11-22] MEDS: RIVAROXABAN 10 MG TAB (XARELTO) PO SCH (09:03)
[2018-11-22] MEDS: ESCITALOPRAM OXALATE 10 MG TAB (LEXAPRO) PO SCH (09:03)
[2018-11-22] MEDS: SPIRONOLACTONE 25 MG TAB PO SCH (09:03)
[2018-11-22] MEDS: ALPRAZolam 0.5 MG TAB PO SCH (09:04)
[2018-11-22] MEDS: FERROUS SULFATE 325MG TAB PO SCH (09:04)
[2018-11-22] MEDS: lamoTRIgine 100MG TAB PO SCH (09:05)
[2018-11-22] MEDS: ASPIRIN 81 MG ENTERIC TAB PO SCH (09:05)
[2018-11-22] MEDS: TORSEMIDE 20 MG TAB PO SCH (09:05)
[2018-11-22] MEDS: FOLIC ACID 1 MG TAB PO SCH (09:05)
[2018-11-23] MEDS ORDERED: PRED20TA PO (12:21)
--- NOTE | 2018-11-25 06:29 | DS.PDOC ---
Discharge Summary General Date of Admission Nov 17, 2018 at 11:19 Discharge Summary PROCEDURES PERFORMED DURING STAY: [None]. ADMITTING DIAGNOSES: 1. . DISCHARGE DIAGNOSES: 1. COPD Exacerbation COMPLICATIONS/CHIEF COMPLAINT: Acute On Chronic Respiratory Failure With Hypercap. HISTORY OF PRESENT ILLNESS: . HOSPITAL COURSE: . DISCHARGE MEDICATIONS: Please see below. ALLERGIES: Please see below. PHYSICAL EXAMINATION ON DISCHARGE: VITAL SIGNS: Please see below. GENERAL: HEENT: NECK: CARDIOVASCULAR EXAMINATION: RESPIRATORY EXAMINATION: ABDOMINAL EXAMINATION: EXTREMITIES: SKIN: NEUROLOGICAL EXAMINATION: PSYCHIATRIC EXAMINATION: LABORATORY DATA: Please see below. IMAGING: PROGNOSIS: ACTIVITY: [As tolerated]. DIET: DISCHARGE PLAN: DISPOSITION: 06 Home Health Service. DISCHARGE INSTRUCTIONS: 1. . ITEMS TO FOLLOWUP ON ON OUTPATIENT: 1. . DISCHARGE CONDITION: [Stable]. TIME SPENT ON DISCHARGE: Greater than minutes. Vital Signs/I&Os Vital Signs Date Time Temp Pulse Resp B/P (MAP) Pulse Ox O2 Delivery O2 Flow Rate FiO2 11/22/18 11:11 16 11/22/18 06:00 97.6 97 136/91 (106) 99 2.0 11/20/18 22:45 Room Air Microbiology Microbiology 11/15/18 Blood Culture - Final, Complete NO GROWTH AFTER 5 DAYS Discharge Medications Scheduled Alprazolam (Alprazolam) 1 Mg Tab, 1 MG PO BID, (Reported) Aspirin (Aspirin EC) 81 Mg Tabec, 81 MG PO DAILY, (Reported) Buspirone HCl (Buspirone HCl) 5 Mg Tablet, 5 MG PO TID, (Reported) Cholecalciferol (Vitamin D3) (Vitamin D3) 2,000 Unit Tab, 2,000 UNIT PO DAILY, (Reported) Escitalopram Oxalate (Escitalopram Oxalate) 20 Mg Tab, 20 MG PO DAILY, (Reported) Ferrous Sulfate (Ferrous Sulfate) 325 Mg Tab, 325 MG PO DAILY, (Reported) Fluticasone/Vilanterol (Breo Ellipta 200-25 Mcg INH) 1 Inh Inh, 1 PUFF INH DAILY, (Reported) Folic Acid (Folic Acid) 1 Mg Tab, 1 MG PO DAILY, (Reported) Lamotrigine (Lamotrigine) 150 Mg Tab, 150 MG PO DAILY, (Reported) Midodrine HCl (Midodrine HCl) 5 Mg Tab, 5 MG PO BID, (Reported) 0800/1600 Omeprazole (Omeprazole) 40 Mg Cap, 40 MG PO BID, (Reported) Prednisone (Prednisone) 20 Mg Tablet, 20 MG PO BID Rivaroxaban (Xarelto) 10 Mg Tab, 10 MG PO DAILY, (Reported) Ropinirole HCl (Ropinirole HCl) 2 Mg Tablet, 2 MG PO QHS Sennosides (Senna Lax) 8.6 Mg Tablet, 2 TAB PO QHS, (Reported) Simvastatin (Zocor) 20 Mg Tab, 20 MG PO QHS, (Reported) Spironolactone (Spironolactone) 25 Mg Tab, 25 MG PO BID, (Reported) 0800/1600 Torsemide (Torsemide) 20 Mg Tab, 20 MG PO DAILY, (Reported) Scheduled PRN Albuterol Sulfate (Ventolin Hfa) 108 Mcg/Act Aer, 2 PUFF INH Q4H PRN for SHORTNESS OF BREATH, (Reported) Nitroglycerin (Nitrostat) 0.4 Mg Subl, 0.4 MG SL NITRO PRN for CHEST PAIN, (Reported) Ondansetron HCl (Ondansetron HCl) 4 Mg Tab, 4 MG PO Q6H PRN for NAUSEA, (Reported) Oxycodone HCl/Acetaminophen (Percocet 5-325 mg Tablet) 1 Tab Tab, 1 TAB PO Q4H PRN for PAIN, (Reported) Allergies Coded Allergies: morphine (Verified Allergy, Severe, SOB, itching, rash, 11/15/18) Penicillins (Verified Allergy, Intermediate, Hives, 11/15/18) Quinolones (Verified Allergy, Intermediate, Hives, 11/15/18) Sulfa (Sulfonamide Antibiotics) (Verified Allergy, Intermediate, Hives, 11/15/18) cephalexin (Verified Allergy, Intermediate, Hives, 11/15/18) clavulanic acid (Verified Allergy, Intermediate, Hives, 11/15/18) erythromycin base (Verified Allergy, Intermediate, Hives, 11/15/18) moxifloxacin (Verified Allergy, Intermediate, Hives, 11/15/18) methylprednisolone (Verified Allergy, Mild, RASH WITH IV, 11/15/18) levofloxacin (Verified Allergy, Unknown, 11/15/18) iodine (Verified Adverse Reaction, Intermediate, Acute renal insufficiency , 11/15/18) iopamidol (Verified Adverse Reaction, Intermediate, Acute renal insufficiency, 11/15/18) gabapentin (Verified Adverse Reaction, Mild, Upset stomach, 11/15/18) RUTHIE COLÓN MD Nov 25, 2018 06:29
== END 2018-11-22 11:10 | disposition home health service (06) | DRG 194 ==
LOC: M ED 20:47 → M ED INP 22:49 → M ICU 11-16 00:36 → OBSVTOIN 11-17 11:19 → M MS5PR 11-17 11:24
PROVIDERS: ADMIT Internal Medicine; ATTEND Hospitalist
DX: I11.0 Hypertensive heart disease with heart failure (principal); J96.22 Acute and chronic respiratory failure with hypercapnia; E87.2 Acidosis; J96.11 Chronic respiratory failure with hypoxia; I27.20 Pulmonary hypertension, unspecified; I50.33 Acute on chronic diastolic (congestive) heart failure; J44.1 Chronic obstructive pulmonary disease with (acute) exacerbation; G47.33 Obstructive sleep apnea (adult) (pediatric); D50.9 Iron deficiency anemia, unspecified; Z66 Do not resuscitate; I25.10 Atherosclerotic heart disease of native coronary artery without angina pectoris; K21.9 Gastro-esophageal reflux disease without esophagitis; F41.9 Anxiety disorder, unspecified; F32.9 Major depressive disorder, single episode, unspecified; I95.1 Orthostatic hypotension; G89.4 Chronic pain syndrome; Z99.81 Dependence on supplemental oxygen; Z96.641 Presence of right artificial hip joint; Z98.49 Cataract extraction status, unspecified eye; Z79.01 Long term (current) use of anticoagulants; Z87.891 Personal history of nicotine dependence; Z79.82 Long term (current) use of aspirin; Z79.899 Other long term (current) drug therapy; Z88.0 Allergy status to penicillin; Z88.1 Allergy status to other antibiotic agents; Z88.8 Allergy status to other drugs, medicaments and biological substances; Z88.2 Allergy status to sulfonamides; Z88.5 Allergy status to narcotic agent; Z86.718 Personal history of other venous thrombosis and embolism

== ENCOUNTER 2018-11-26 11:18 | Emergency (ER) | payer OTHER ==
[~2018-11-26] VITALS: Ht 165.1 cm; Wt 110.8 kg
[~2018-11-26 11:18] MED LIST changes: +CELE20TA PO; +ROPI2TAB PO
--- NOTE | 2018-11-26 12:17 | REP ---
Chest two views HISTORY: cough Comparison: 11/15/2018 The lungs are clear. The heart is normal in size. The pulmonary vasculature is normal in appearance. The bony structure is intact. IMPRESSION: No acute disease. Electronically Signed by Sukhdev Rivera MD 11/26/2018 12:09 P
[2018-11-26 12:21] LABS: ABG BASE EXCESS 5.6 (-2.0-2.0); ABG HCO3 31.3 MEQ/L (22.0-26.0); ABG O2 SATURATION 95.8 % (95.0-99.0); ABG PARTIAL PRESSURE CO2 49.8 mmHg (35.0-45.0); ABG PARTIAL PRESSURE O2 73.7 mmHg (75.0-100.0); ABG STANDARD HCO3 29.5 MEQ/L (22.0-26.0); ABG TOTAL CO2 32.8 MEQ/L (23.0-31.0); ABG pH (ARTERIAL) 7.416 UNITS (7.350-7.450)
[2018-11-26 12:27] LABS: BASO % 0.1 % (0.0-1.0); EOS % 0.4 % (0.0-3.0); HEMOGLOBIN 13.4 g/dl (12.0-15.5); LYMPH # 0.6 10^3/uL (1.5-4.5); LYMPH % 7.6 % (24.0-44.0); MEAN CORPUSCULAR HEMOGLOBIN 29.9 pg (27.0-33.0); MEAN CORPUSCULAR HGB CONC 31.2 g/dl (32.0-36.5); MONO # 0.4 10^3/uL (0.0-0.8); MONO % 5.2 % (0.0-5.0); NEUTROPHILS # 6.9 10^3/uL (1.8-7.7); NEUTROPHILS % 85.1 % (36.0-66.0); PLATELET COUNT, AUTOMATED 390 10^3/uL (150-450); RED BLOOD COUNT 4.48 10^6/uL (4.00-5.40); WHITE BLOOD COUNT 8.1 10^3/uL (4.0-10.0)
[2018-11-26 14:11] LABS: BLOOD UREA NITROGEN 26 MG/DL (7-18); CARBON DIOXIDE LEVEL 34 MEQ/L (21-32); CHLORIDE LEVEL 102 MEQ/L (98-107); CREATININE FOR GFR 0.91 MG/DL (0.55-1.30); GLOMERULAR FILTRATION RATE > 60.0 (>45); GLUCOSE, FASTING 101 MG/DL (70-100); POTASSIUM SERUM 4.4 MEQ/L (3.5-5.1); SODIUM LEVEL 140 MEQ/L (136-145)
[2018-11-26 14:12] LABS: ALBUMIN 3.4 GM/DL (3.2-5.2); BILIRUBIN,DIRECT 0.2 MG/DL (0.0-0.2); BILIRUBIN,TOTAL 0.3 MG/DL (0.2-1.0); CALCIUM LEVEL 9.2 MG/DL (8.8-10.2); CK-MB VALUE MASS 1.7 NG/ML (<3.6); CPK CREATINE PHOSPHOKINASE 26 U/L (26-192); MB/CK RELATIVE INDEX 6.53 (< OR =4); TOTAL PROTEIN 6.9 GM/DL (6.4-8.2)
[2018-11-26 14:13] LABS: THYROID STIMULATING HORMONE 0.578 uIU/ML (0.358-3.740); TROPONIN I < 0.02 NG/ML (< 0.10)
[2018-11-26] MEDS ORDERED: PERCOCET 5MG/325MG TAB PO ONE (14:15)
[2018-11-26 14:19] LABS: ALT/SGPT 44 U/L (12-78)
[2018-11-26 14:28] VITALS: BP 135/64
--- NOTE | 2018-11-27 16:07 | ECGEPIP ---
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
== END 2018-11-26 16:53 | disposition home or self-care (01) ==
LOC: M ED 11:18 → EDBD 11:18 → M ED 16:53
DX: R53.81 Other malaise (principal); R41.0 Disorientation, unspecified; R00.0 Tachycardia, unspecified; I11.0 Hypertensive heart disease with heart failure; I50.9 Heart failure, unspecified; I25.10 Atherosclerotic heart disease of native coronary artery without angina pectoris; J44.9 Chronic obstructive pulmonary disease, unspecified; K21.9 Gastro-esophageal reflux disease without esophagitis; F32.9 Major depressive disorder, single episode, unspecified; F41.9 Anxiety disorder, unspecified; I95.1 Orthostatic hypotension; Z99.81 Dependence on supplemental oxygen; Z87.891 Personal history of nicotine dependence; Z79.899 Other long term (current) drug therapy; Z79.01 Long term (current) use of anticoagulants; Z79.82 Long term (current) use of aspirin; Z88.0 Allergy status to penicillin; Z88.1 Allergy status to other antibiotic agents; Z88.2 Allergy status to sulfonamides; Z88.5 Allergy status to narcotic agent; Z88.8 Allergy status to other drugs, medicaments and biological substances

== ENCOUNTER → 2018-12-02 | Outpatient (CLI) | payer OTHER ==
[2018-12-02 10:28] LABS: ABG pH (ARTERIAL) 7.392 UNITS (7.350-7.450)
[2018-12-02 10:29] LABS: ABG HCO3 32.5 MEQ/L (22.0-26.0); ABG O2 SATURATION 96.6 % (95.0-99.0); ABG PARTIAL PRESSURE CO2 54.6 mmHg (35.0-45.0); ABG PARTIAL PRESSURE O2 80.6 mmHg (75.0-100.0); ABG STANDARD HCO3 29.9 MEQ/L (22.0-26.0); ABG TOTAL CO2 34.1 MEQ/L (23.0-31.0)
== END ==
LOC: M CARPUL 09:43
PROVIDERS: ATTEND Internal Medicine Pulmonary Disease
DX: J44.9 Chronic obstructive pulmonary disease, unspecified (principal)

== ENCOUNTER 2018-12-03 09:04 | Emergency (ER) | payer OTHER ==
[2018-12-03 10:22] LABS: ABG BASE EXCESS 5.6 (-2.0-2.0); ABG PARTIAL PRESSURE O2 87.9 mmHg (75.0-100.0); ABG STANDARD HCO3 29.5 MEQ/L (22.0-26.0); ABG pH (ARTERIAL) 7.323 UNITS (7.350-7.450)
[2018-12-03 10:27] LABS: BASO % 0.3 % (0.0-1.0); EOS # 0.3 10^3/uL (0.0-0.50); EOS % 1.8 % (0.0-3.0); HEMATOCRIT 47.9 % (36.0-47.0); HEMOGLOBIN 14.1 g/dl (12.0-15.5); LYMPH # 1.2 10^3/uL (1.5-4.5); LYMPH % 8.4 % (24.0-44.0); MEAN CORPUSCULAR HEMOGLOBIN 28.8 pg (27.0-33.0); MEAN CORPUSCULAR HGB CONC 29.4 g/dl (32.0-36.5); MEAN CORPUSCULAR VOLUME 97.8 fl (80.0-96.0); MONO # 1.1 10^3/uL (0.0-0.8); MONO % 7.4 % (0.0-5.0); NEUTROPHILS # 11.8 10^3/uL (1.8-7.7); NEUTROPHILS % 81.2 % (36.0-66.0); PLATELET COUNT, AUTOMATED 273 10^3/uL (150-450); WHITE BLOOD COUNT 14.5 10^3/uL (4.0-10.0)
[2018-12-03] MEDS ORDERED: ALBUTEROL SULFATE 2.5 MG/0.5 ML INH NEB SOLN NEB ONE (10:30)
[2018-12-03 11:00] LABS: BLOOD UREA NITROGEN 21 MG/DL (7-18); CALCIUM LEVEL 9.4 MG/DL (8.8-10.2); CARBON DIOXIDE LEVEL 38 MEQ/L (21-32); CHLORIDE LEVEL 98 MEQ/L (98-107); CK-MB VALUE MASS 2.2 NG/ML (<3.6); CPK CREATINE PHOSPHOKINASE 34 U/L (26-192); CREATININE FOR GFR 0.93 MG/DL (0.55-1.30); GLOMERULAR FILTRATION RATE > 60.0 (>45); GLUCOSE, FASTING 120 MG/DL (70-100); MB/CK RELATIVE INDEX 6.47 (< OR =4); POTASSIUM SERUM 4.7 MEQ/L (3.5-5.1); SODIUM LEVEL 137 MEQ/L (136-145)
[2018-12-03 13:40] LABS: ABG BASE EXCESS 8.3 (-2.0-2.0); ABG HCO3 34.3 MEQ/L (22.0-26.0); ABG O2 SATURATION 98.6 % (95.0-99.0); ABG PARTIAL PRESSURE CO2 52.6 mmHg (35.0-45.0); ABG PARTIAL PRESSURE O2 107.2 mmHg (75.0-100.0); ABG STANDARD HCO3 32.2 MEQ/L (22.0-26.0); ABG TOTAL CO2 35.9 MEQ/L (23.0-31.0); ABG pH (ARTERIAL) 7.432 UNITS (7.350-7.450)
[2018-12-03] MEDS ORDERED: ACETAMINOPHEN TAB 650MG DOSE (2X325MG) PO ONE (14:45)
[2018-12-03 15:04] VITALS: BP 134/84
== END 2018-12-03 16:39 | disposition home or self-care (01) ==
LOC: M ED 09:04 → EDBD 09:04 → M ED 16:39
DX: R53.81 Other malaise (principal); J96.11 Chronic respiratory failure with hypoxia; J96.12 Chronic respiratory failure with hypercapnia; I25.10 Atherosclerotic heart disease of native coronary artery without angina pectoris; I10 Essential (primary) hypertension; J44.9 Chronic obstructive pulmonary disease, unspecified; K21.9 Gastro-esophageal reflux disease without esophagitis; Z87.891 Personal history of nicotine dependence; Z79.82 Long term (current) use of aspirin; Z79.899 Other long term (current) drug therapy; Z88.0 Allergy status to penicillin; Z88.2 Allergy status to sulfonamides; Z88.8 Allergy status to other drugs, medicaments and biological substances; Z88.1 Allergy status to other antibiotic agents

== ENCOUNTER 2018-12-12 18:06 | Inpatient (IN) | payer OTHER ==
[~2018-12-12] VITALS: Ht 162.6 cm; Wt 105.6 kg
[2018-12-12] MEDS ORDERED: NS 500 ML IV ONE (19:00)
[2018-12-12 19:44] LABS: VENOUS BASE EXCESS 11.6 (-2.0-2.0); VENOUS HCO3 40.5 MEQ/L (23.0-27.0); VENOUS O2 SATURATION 98.1 % (60.0-80.0); VENOUS PARTIAL PRESSURE CO2 76.5 mmHg (38.0-50.0); VENOUS PARTIAL PRESSURE O2 105.6 mmHg (30.0-50.0); VENOUS PH 7.342 UNITS (7.330-7.430); VENOUS STANDARD HCO3 35.4 MEQ/L; VENOUS TOTAL CO2 42.9 MEQ/L (24.0-28.0)
[2018-12-12 19:46] LABS: BASO % 0.3 % (0.0-1.0); EOS # 0.3 10^3/uL (0.0-0.50); EOS % 5.6 % (0.0-3.0); HEMOGLOBIN 11.9 g/dl (12.0-15.5); LYMPH # 1.1 10^3/uL (1.5-4.5); LYMPH % 18.9 % (24.0-44.0); MEAN CORPUSCULAR HEMOGLOBIN 28.3 pg (27.0-33.0); MEAN CORPUSCULAR HGB CONC 29.8 g/dl (32.0-36.5); MONO # 0.6 10^3/uL (0.0-0.8); MONO % 10.1 % (0.0-5.0); NEUTROPHILS # 3.8 10^3/uL (1.8-7.7); NEUTROPHILS % 64.6 % (36.0-66.0); PLATELET COUNT, AUTOMATED 224 10^3/uL (150-450); RED BLOOD COUNT 4.21 10^6/uL (4.00-5.40); WHITE BLOOD COUNT 5.9 10^3/uL (4.0-10.0)
--- NOTE | 2018-12-12 19:52 | REP ---
Clinical: Syncope/near-syncopal episode . Comparison: 11/26/2018 . Findings: The mediastinum and cardiac silhouette are stable and within normal limits for portable technique. The lung white demonstrate chronic changes without acute consolidation, effusion, or pneumothorax. Skeletal structures are intact. Impression: No acute cardiopulmonary process appreciated. Electronically Signed by Lee Wolf MD 12/12/2018 07:44 P
--- NOTE | 2018-12-12 20:02 | REP ---
Clinical: Trauma on anticoagulation therapy. Comparison: 01/18/2018 . Findings: Age-related atrophy and microvascular ischemic changes are appreciated. The ventricles and sulci are symmetric. Cochran-white differentiation is maintained. There is no evidence for acute intracranial hemorrhage, mass/mass effect, pathology or infarction. No extra-axial fluid collection. Calvarium is intact. Paranasal sinuses and mastoid air cells are clear. Impression: Age related atrophy and microvascular ischemic changes. No acute intracranial hemorrhage, infarction, or mass/mass effect. Electronically Signed by Lee Wolf MD 12/12/2018 07:54 P
[2018-12-12 20:20] LABS: BLOOD UREA NITROGEN 11 MG/DL (7-18); CALCIUM LEVEL 9.9 MG/DL (8.8-10.2); CARBON DIOXIDE LEVEL 39 MEQ/L (21-32); CHLORIDE LEVEL 95 MEQ/L (98-107); CK-MB VALUE MASS 1.1 NG/ML (<3.6); CPK CREATINE PHOSPHOKINASE 27 U/L (26-192); CREATININE FOR GFR 0.91 MG/DL (0.55-1.30); GLOMERULAR FILTRATION RATE > 60.0 (>45); GLUCOSE, FASTING 105 MG/DL (70-100); MB/CK RELATIVE INDEX 4.07 (< OR =4); POTASSIUM SERUM 4.2 MEQ/L (3.5-5.1); SODIUM LEVEL 136 MEQ/L (136-145); TROPONIN I < 0.02 NG/ML (< 0.10)
[2018-12-12] MEDS ORDERED: LIDOCAINE W/EPINEPHRINE 1% 20ML VIAL SC ONE (20:30)
[2018-12-12] MEDS ORDERED: BUPIVACAINE HCL 0.5% 30 ML VIAL SC ONE (20:30)
--- NOTE | 2018-12-12 20:31 | ECGEPIP ---
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
--- NOTE | 2018-12-12 20:38 | REP ---
Clinical: Trauma/pain with fall. Technique: AP and lateral views of the right and left knee. Findings: The right knee demonstrates significant soft tissue swelling with subcutaneous emphysema. The osseous structures demonstrate age-related osteopenia and degenerative change without obvious acute fracture. The left knee demonstrates moderate soft tissue swelling and suspected subcutaneous emphysema. The osseous structures demonstrate age-related osteopenia and degenerative changes without obvious acute fracture. Impression: Traumatic findings as described above. No obvious acute fracture. Electronically Signed by Lee Wolf MD 12/12/2018 08:30 P
[2018-12-12] MEDS ORDERED: PERCOCET 5MG/325MG TAB PO ONE (21:45)
[2018-12-12] MEDS ORDERED: TORS20TA2 PO (22:40)
[2018-12-12] MEDS ORDERED: MOM 30ML SUSPENSION UDC PO PRN (23:00)
[2018-12-12] MEDS ORDERED: MAALOX 30 ML SUSP *UDC PO PRN (23:00)
[2018-12-12] MEDS: OMEPRAZOLE 20 MG CAP PO SCH (23:25)
[2018-12-12] MEDS: ALPRAZolam 0.5 MG TAB PO SCH (23:25)
[2018-12-12] MEDS: SENNA 8.6 MG TAB (SENOKOT) PO SCH (23:25)
[2018-12-12] MEDS ORDERED: PILL CUTTER 1 EACH XX PRN (23:45)
[2018-12-12] MEDS: ALBUTEROL SULFATE 2.5 MG/0.5 ML INH NEB SOLN NEB PRN (23:47)
--- NOTE | 2018-12-13 00:18 | HPEPDOC ---
General Date of Admission 12/12/18 Date of Service: Dec 12, 2018 Chief Complaint The patient is a 58-year-old female admitted with a reason for visit of Knee Pain. Source: Patient, RN/MD, Old records Exam Limitations: No limitations Severity: Moderate History of Present Illness 58 year old female with multiple medical problems including End Stage COPD with chronic respiratory failure with hypoxia and hypercarbic, orthostatic hyp otension, Morbid obesity BMI 44.0, probably Sleep apnea needs formal testing, diastolic CHF was in her usual state of health. This evening around 6 pm she had to go to the bathroom urgently so tigre up from her seat and immediately started rushing to the bathroom with her walker she felt a blackness coming over her eyes and she passed out and fell forward over her walker on her face and knees. After hitting the floor she immediately gained consciousness and pressed her Life alert. On presentation to the ED she had a deep laceration on the right knee which was stitched ( 14 stitches) and both the knees were badly bruised and swollen. She also had some abrasion and bruising on her face and nose. On my interview she complained of severe bilateral knee pain throbbing in nature , 10/10 in intensity located on both the knees with no radiation. She also says that her whole body is feeling sore. She is being admitted for syncope and collapse. Home Medications Scheduled Alprazolam (Alprazolam) 1 Mg Tab, 1 MG PO BID, (Reported) Aspirin (Aspirin EC) 81 Mg Tabec, 81 MG PO DAILY, (Reported) Buspirone HCl (Buspirone HCl) 5 Mg Tablet, 5 MG PO TID, (Reported) Cholecalciferol (Vitamin D3) (Vitamin D3) 2,000 Unit Tab, 2,000 UNIT PO DAILY, (Reported) Escitalopram Oxalate (Escitalopram Oxalate) 20 Mg Tab, 20 MG PO DAILY, (Reported) Ferrous Sulfate (Ferrous Sulfate) 325 Mg Tab, 325 MG PO DAILY, (Reported) Fluticasone/Vilanterol (Breo Ellipta 200-25 Mcg INH) 1 Inh Inh, 1 PUFF INH DAILY, (Reported) Folic Acid (Folic Acid) 1 Mg Tab, 1 MG PO DAILY, (Reported) Lamotrigine (Lamotrigine) 150 Mg Tab, 150 MG PO DAILY, (Reported) Midodrine HCl (Midodrine HCl) 5 Mg Tab, 5 MG PO BID, (Reported) 0800/1600 Omeprazole (Omeprazole) 40 Mg Cap, 40 MG PO BID, (Reported) Rivaroxaban (Xarelto) 10 Mg Tab, 10 MG PO DAILY, (Reported) Ropinirole HCl (Ropinirole HCl) 2 Mg Tablet, 2 MG PO QHS Sennosides (Senna Lax) 8.6 Mg Tablet, 2 TAB PO QHS, (Reported) Simvastatin (Zocor) 20 Mg Tab, 20 MG PO QHS, (Reported) Torsemide (Torsemide) 20 Mg Tablet, 20 MG PO DAILY, (Reported) Scheduled PRN Albuterol Sulfate (Ventolin Hfa) 108 Mcg/Act Aer, 2 PUFF INH Q4H PRN for SHORTNESS OF BREATH, (Reported) Nitroglycerin (Nitrostat) 0.4 Mg Subl, 0.4 MG SL NITRO PRN for CHEST PAIN, (Reported) Ondansetron HCl (Ondansetron HCl) 4 Mg Tab, 4 MG PO Q6H PRN for NAUSEA, (Reported) Oxycodone HCl/Acetaminophen (Percocet 5-325 mg Tablet) 1 Tab Tab, 1 TAB PO Q6H PRN for PAIN, (Reported) Allergies Coded Allergies: morphine (Verified Allergy, Severe, SOB, itching, rash, 11/15/18) Penicillins (Verified Allergy, Intermediate, Hives, 11/15/18) Quinolones (Verified Allergy, Intermediate, Hives, 11/15/18) Sulfa (Sulfonamide Antibiotics) (Verified Allergy, Intermediate, Hives, 11/15/18) cephalexin (Verified Allergy, Intermediate, Hives, 11/15/18) clavulanic acid (Verified Allergy, Intermediate, Hives, 11/15/18) erythromycin base (Verified Allergy, Intermediate, Hives, 11/15/18) moxifloxacin (Verified Allergy, Intermediate, Hives, 11/15/18) methylprednisolone (Verified Allergy, Mild, RASH WITH IV, 11/15/18) levofloxacin (Verified Allergy, Unknown, 11/15/18) iodine (Verified Adverse Reaction, Intermediate, Acute renal insufficiency , 11/15/18) iopamidol (Verified Adverse Reaction, Intermediate, Acute renal insufficiency, 11/15/18) gabapentin (Verified Adverse Reaction, Mild, Upset stomach, 11/15/18) Past Medical History Medical History 1. End stage COPD with chronic hypoxemic and hypercarbic respiratory failure. FEV1 24 % in 05/2013 with poor effort. 2. 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 Iron deficiency anemia. 4. CAD. 5. Hypertension. 6. Gastroesophageal reflux disease. 7. Anxiety and depression 8. Chronic pain and degenerative joint disease and Degenerative disc disease of Neck 9. Diastolic CHF. 10. Orthostatic hypotension. 11. Pulmonary hypertension. 12. Hypercholesterolemia controlled 13. Chronic glucocorticoid use. Surgical History 1. Leg surgeries. 2. Right hip replacement. 3. Hysterectomy. 4. Bladder tuck. 5. Cataract surgery. Family History Mother with history of hypertension, hyperlipidemia, coronary artery disease and unknown cancer. Father with history of lung and throat cancer. Siblings with history of cancer and COPD. A daughter with diabetes and another daughter with lupus. Social History * Smoker: former Smoker Alcohol: Denies Drugs: denies A-FIB/CHADSVASC A-FIB History Current/History of A-Fib/PAF?: No Current PO Anticoag Therapy: Yes Review of Systems Constitutional: Denies: Chills, Fever, Night Sweats Eyes: Denies: Pain, Vision change ENT: Denies: Head Aches, Ear Pain, Dysphagia Skin: Reports: Bruising (both knees.), Other (abrassion on the nose) Pulmonary: Reports: Dyspnea Cardiovascular: Reports: Lt Headedness; Denies: Chest Pain, Palpitations Gastrointestinal: Denies: Nausea, Vomiting, Abdominal Pain, Diarrhea Genitourinary: Denies: Dysuria, Frequency, Incontinence, Retention Musculoskeletal: Reports: Back Pain, Joint Pain, Muscle Pain Neurological: Denies: Weakness, Numbness, Change in speech, Confusion Psych: Reports: Anxiety Physical Examination General Exam: Positive: Alert, Cooperative, Moderate Distress (from pain) Eye Exam: Positive: PERRLA, Conjunctiva & lids normal, EOMI; Negative: Sclera icteric ENT Exam: Positive: Mucous membr. moist/pink, Pharynx Normal, Tongue Midline, Nares Patent, Other ENT (broising on the bridge of the nose) Neck Exam: Positive: Supple; Negative: JVD, thyromegaly Chest Exam: Positive: Rhonchi, Wheezing (scattered heard on deep expiration), Diminished Heart Exam: Positive: Tachycardic, Regular Rhythm, Normal S1, Normal S2; Negative: Gallops, Murmurs, Rubs Telemetry: Positive: Sinus, Tachycardia Abdomen Exam: Positive: Normal bowel sounds, Soft; Negative: Tenderness, Hepatospenomegaly Extremity Exam: Positive: Tenderness (both knees), Swelling (both knees) Skin Exam: Positive: Breakdown (laceration over the right knee needing stitches) Neuro Exam: Positive: Normal Speech, Strength at 5/5 X4 ext, Normal Tone, Sensation Intact, Other (static tremor of left leg noted says RLS however may be parkinsons) Psych Exam: Positive: Anxiety, Memory Intact, Oriented x 3 Vital Signs Vital Signs Date Time Temp Pulse Resp B/P (MAP) Pulse Ox O2 Delivery O2 Flow Rate FiO2 12/12/18 21:23 110 104/62 (76) 119 108/73 (85) 12/12/18 20:20 94 12/12/18 18:21 22 Nasal Cannula 2.0 12/12/18 18:12 97.5 Laboratory Data Labs 24H Laboratory Tests 2 12/12/18 19:25: Anion Gap 2L, Glomerular Filtration Rate > 60.0, Blood Urea Nitrogen 11, Creat inine 0.91, Sodium Level 136, Potassium Level 4.2, Chloride Level 95L, Carbon Dioxide Level 39H, Calcium Level 9.9, Total Creatine Kinase 27, Magnesium Level 2.0, Creatine Kinase MB 1.1, Creatine Kinase MB Relative Index 4.07H, Troponin I < 0.02, Thyroid Stimulating Hormone (TSH) 0.510 12/12/18 19:26: Immature Granulocyte % (Auto) 0.5, White Blood Count 5.9, Red Blood Count 4.21, Hemoglobin 11.9L, Hematocrit 40.0, Mean Corpuscular Volume 95.0, Mean Corpuscular Hemoglobin 28.3, Mean Corpuscular Hemoglobin Concent 29.8L, Red Cell Distribution Width 14.1, Platelet Count 224, Neutrophils (%) (Auto) 64.6, Lymphocytes (%) (Auto) 18.9L, Monocytes (%) (Auto) 10.1H, Eosinophils (%) (Auto) 5.6H, Basophils (%) (Auto) 0.3, Neutrophils # (Auto) 3.8, Lymphocytes # (Auto) 1.1L, Monocytes # (Auto) 0.6, Eosinophils # (Auto) 0.3, Basophils # (Auto) 0.0, Nucleated Red Blood Cells % (auto) 0.0, Activated Partial Thromboplast Time 36.1, Blood Gas Bicarbonate Standard 35.4, Venous Blood pH 7.342, Venous Blood Partial Pressure CO2 76.5H, Venous Blood Partial Pressure O2 105.6H, Venous Blood Total Carbon Dioxide 42.9H, Venous Blood HCO3 40.5H, Venous Blood Oxygen Saturation 98.1H, Venous Blood Base Excess 11.6H 12/12/18 19:35: Bedside Glucose (Misc Panel) 107 12/12/18 20:39: Lactic Acid Level 1.1 CBC/BMP Laboratory Tests 12/12/18 19:25 Calcium Level 9.9, Total Creatine Kinase 27 12/12/18 19:26 Red Blood Count 4.21, Mean Corpuscular Volume 95.0, Mean Corpuscular Hemoglobin 28.3, Mean Corpuscular Hemoglobin Concent 29.8 L, Red Cell Distribution Width 14.1, Neutrophils (%) (Auto) 64.6, Lymphocytes (%) (Auto) 18.9 L, Monocytes (%) (Auto) 10.1 H, Eosinophils (%) (Auto) 5.6 H, Basophils (%) (Auto) 0.3, Neutrophils # (Auto) 3.8, Lymphocytes # (Auto) 1.1 L, Monocytes # (Auto) 0.6, Eosinophils # (Auto) 0.3, Basophils # (Auto) 0.0 Microbiology Microbiology 12/12/18 Blood Culture, Received Pending 12/12/18 Blood Culture, Received Pending Assessment/Plan 58 year old female with multiple medical problems including End Stage COPD with chronic respiratory failure with hypoxia and hypercarbic, orthostatic hypot ension, Morbid obesity BMI 44.0, probably Sleep apnea needs formal testing, diastolic CHF was in her usual state of health. This evening around 6 pm she had to go to the bathroom urgently so tigre up from her seat and immediately started rushing to the bathroom with her walker she felt a blackness coming over her eyes and she passed out and fell forward over her walker on her face and knees. After hitting the floor she immediately gained consciousness and pressed her Life alert. On presentation to the ED she had a deep laceration on the right knee which was stitched ( 14 stitches) and both the knees were badly bruised and swollen. She also had some abrasion and bruising on her face and nose. On my interview she complained of severe bilateral knee pain throbbing in nature , 10/10 in intensity located on both the knees with no radiation. She also says that her whole body is feeling sore. She is being admitted for syncope and collapse. Syncope and collapse recurrent probably due to orthostatic hypotension, Has resting tachycardia. will increase midodrine dosage, Has sinus tachycardia even when she is sleeping today. Could have an autonomic syndrome also would benefit from cardiology consult for orthostatic hypotension monitor under telemetry for any other cardiac causes. CT head negative. Last Echo was in 2018 which did not have any etiology for syncope. Bilateral knee bruising and right knee laceration stitches in place on the right pain control with percocet and toradol. Chronic hypercapnic and Hypoxic respiratory failure seems to be at baseline will get ABG prn (too somnolent, unable to be woken up) and tomorrow morning. oxygen supplementation nebs, inhalers as home Saw the engraving plate maker this week. Has some wheezing today. End Stage COPD last FEV1 in 2012 was 24% with poor effort. albuterol nebs, symbicort in place of breo, prednisone follows with dr Tabor in [place]. sees him every six months. Bronchiectasis stable. Diastolic CHF, stable. Weight seems to be at baseline continue with home diuretics. Dyslipidemia continue home meds Chronic back pain/chronic neck pain. Probable obstructive sleep apnea oupt fu w her engraving plate maker for sleep study saw engraving plate maker on 12/12/18 Restless Legs Syndrome ropinirole H/o DVT and PE on Xarelto. compliant with meds Iron deficiency anemia chronic Orthostatic hypotension on midodrine Gastroesophageal reflux disease. chronic Anxiety. chronic Diastolic CHF with preserved EF strict i/o appears Euvolemic at this time Pulmonary hypertension. complicating care Obesity BMI 44.0 complicating care Plan / VTE VTE Prophylaxis Ordered?: Yes EILEEN DONOVAN MD Dec 12, 2018 22:02
[2018-12-13] MEDS: busPIRone 5 MG TAB PO SCH ×4 (00:55→20:54)
[2018-12-13] MEDS: SIMVASTATIN 20 MG TAB PO SCH ×2 (00:55→20:55)
[2018-12-13] MEDS: rOPINIRole 2MG TAB PO SCH ×2 (00:55→20:54)
[2018-12-13] MEDS: KETOROLAC 30 MG/ML VIAL (J1885) IV PRN ×2 (03:51→14:11)
[2018-12-13] MEDS: PERCOCET 5MG/325MG TAB PO PRN ×4 (04:23→20:56)
[2018-12-13] MEDS: MIDODRINE 5 MG TAB PO SCH ×3 (06:34→18:54)
[2018-12-13 07:29] LABS: ABG BASE EXCESS 9.5 (-2.0-2.0); ABG HCO3 36.6 MEQ/L (22.0-26.0); ABG O2 SATURATION 98.1 % (95.0-99.0); ABG PARTIAL PRESSURE O2 106.9 mmHg (75.0-100.0); ABG STANDARD HCO3 33.3 MEQ/L (22.0-26.0); ABG TOTAL CO2 38.5 MEQ/L (23.0-31.0); ABG pH (ARTERIAL) 7.378 UNITS (7.350-7.450)
[2018-12-13] MEDS: SYMBICORT 160/4.5MCG INHALER 6GM INH SCH ×2 (07:30→20:15)
[2018-12-13 07:33] LABS: ABG PARTIAL PRESSURE CO2 63.5 mmHg (35.0-45.0)
[2018-12-13] MEDS: FERROUS SULFATE 325MG TAB PO SCH (08:35)
[2018-12-13] MEDS: FOLIC ACID 1 MG TAB PO SCH (08:35)
[2018-12-13] MEDS: VITAMIN D 1,000 INTERNATIONAL UNITS TABLET PO SCH (08:35)
[2018-12-13] MEDS: DOCUSATE SODIUM 100 MG CAP PO SCH ×2 (08:35→20:55)
[2018-12-13] MEDS: OMEPRAZOLE 20 MG CAP PO SCH ×2 (08:36→20:54)
[2018-12-13] MEDS: predniSONE 20 MG TAB PO SCH (08:37)
[2018-12-13] MEDS: ESCITALOPRAM OXALATE 10 MG TAB (LEXAPRO) PO SCH (08:37)
[2018-12-13] MEDS: lamoTRIgine 100MG TAB PO SCH (08:37)
[2018-12-13] MEDS ORDERED: ASPIRIN 81 MG ENTERIC TAB PO SCH (09:00)
[2018-12-13] MEDS ORDERED: TORSEMIDE 20 MG TAB PO SCH (09:00)
[2018-12-13] MEDS ORDERED: RIVAROXABAN 10 MG TAB (XARELTO) PO SCH (09:00)
[2018-12-13] MEDS: ALPRAZolam 0.5 MG TAB PO SCH ×2 (09:35→20:54)
[2018-12-13] MEDS: ALBUTEROL SULFATE 2.5 MG/0.5 ML INH NEB SOLN NEB PRN (09:37)
[2018-12-13] MEDS ORDERED: ONDANSETRON 4MG/2ML VIAL (J2405) IV PRN (10:00)
[2018-12-13] MEDS ORDERED: ONDANSETRON 4MG/2ML VIAL (J2405) IV ONE (10:00)
[2018-12-13] MEDS ORDERED: diphenhydrAMINE INJ 50MG/ML VIAL (J1200) IV STA (10:07)
[2018-12-13] MEDS ORDERED: methylPREDNISolone INJ 125 MG/2 ML VIAL (J2930) IV ONE (10:15)
[2018-12-13] MEDS ORDERED: NS 500 ML IV ONE (10:15)
[2018-12-13 10:23] LABS: HEMATOCRIT 33.1 % (36.0-47.0); HEMOGLOBIN 9.9 g/dl (12.0-15.5); MEAN CORPUSCULAR HEMOGLOBIN 28.7 pg (27.0-33.0); MEAN CORPUSCULAR HGB CONC 29.9 g/dl (32.0-36.5); MEAN CORPUSCULAR VOLUME 95.9 fl (80.0-96.0); PLATELET COUNT, AUTOMATED 229 10^3/uL (150-450); RED BLOOD COUNT 3.45 10^6/uL (4.00-5.40); WHITE BLOOD COUNT 8.3 10^3/uL (4.0-10.0)
[2018-12-13 10:35] LABS: CALCIUM LEVEL 8.5 MG/DL (8.8-10.2); CREATININE FOR GFR 1.33 MG/DL (0.55-1.30); GLOMERULAR FILTRATION RATE 43.3 (>45); POTASSIUM SERUM 4.7 MEQ/L (3.5-5.1)
[2018-12-13] MEDS ORDERED: predniSONE 20 MG TAB PO ONE ×2 (12:00)
[2018-12-13] MEDS ORDERED: ISOVUE-370 76% 100ML VIAL (Q9967) As Ordered ONE (12:00)
[2018-12-13] MEDS ORDERED: CALCIUM GLUCONATE 1,000 MG in D5W MINI-BAG PLUS 100 ML IV ONE (12:00)
[2018-12-13] MEDS ORDERED: SLF 3 ML SYR IV PRN (13:00)
[2018-12-13] MEDS: SLF 3 ML SYR IV SCH ×2 (14:12→20:55)
--- NOTE | 2018-12-13 15:24 | IPNPDOC ---
Date Seen The patient was seen on 12/13/18. Progress Note SUBJECTIVE: Pt received stitches for laceration in the right knee after fall,and had significant bright red blood oozing and clots at the bedside from continued use aspirin and xarelto, which have both been discontinued. Hgb remains stable. Pt c/o severe pain 10/10not relieved with percocet 1 tab, toradol. respiratory status is chronic, and pH on ABG is compensated at 7.38. Per orthopedic cox rgery distribution manager, Dr. Ling, elevate knee on two pillows above the heart, and he will see the patient in consult. OBJECTIVE: Physical Examination VITALS: PLS SEE BELOW General Exam: Positive: Alert, Cooperative, Moderate Distress (from pain) Eye Exam: Positive: PERRLA, Conjunctiva & lids normal, EOMI; Negative: Sclera icteric ENT Exam: Positive: Mucous membr. moist/pink, Pharynx Normal, Tongue Midline, Nares Patent, Other ENT (broising on the bridge of the nose) Neck Exam: Positive: Supple; Negative: JVD, thyromegaly Chest Exam: Positive: Rhonchi, Wheezing (scattered heard on deep expiration), Diminished Heart Exam: Positive: Tachycardic, Regular Rhythm, Normal S1, Normal S2; Negative: Gallops, Murmurs, Rubs Telemetry: Positive: Sinus, Tachycardia Abdomen Exam: Positive: Normal bowel sounds, Soft; Negative: Tenderness, Hepatospenomegaly Extremity Exam: Positive: Tenderness (both knees), Swelling (both knees) Skin Exam: Positive: Breakdown (laceration over the right knee with stitches, actively oozing red blood, and clots on the thigh and along the leg-being changed by the RN. Neuro Exam: Positive: Normal Speech, Strength at 5/5 X4 ext, Normal Tone, Sensation Intact, Other (static tremor of left leg noted says RLS however may be parkinsons) Psych Exam: Positive: Anxiety, Memory Intact, Oriented x 3 ADMISSION LABORATORY DATA: 12/12/18 19:25: Anion Gap 2L, Glomerular Filtration Rate > 60.0, Blood Urea Nitrogen 11, Creatinine 0.91, Sodium Level 136, Potassium Level 4.2, Chloride Level 95L, Carbon Dioxide Level 39H, Calcium Level 9.9, Total Creatine Kinase 27, Magnesium Level 2.0, Creatine Kinase MB 1.1, Creatine Kinase MB Relative Index 4.07H, Troponin I < 0.02, Thyroid Stimulating Hormone (TSH) 0.510 12/12/18 19:26: Immature Granulocyte % (Auto) 0.5, White Blood Count 5.9, Red Blood Count 4.21, Hemoglobin 11.9L, Hematocrit 40.0, Mean Corpuscular Volume 95.0, Mean Corpuscular Hemoglobin 28.3, Mean Corpuscular Hemoglobin Concent 29.8L, Red Cell Distribution Width 14.1, Platelet Count 224, Neutrophils (%) (Auto) 64.6, Lymphocytes (%) (Auto) 18.9L, Monocytes (%) (Auto) 10.1H, Eosinophils (%) (Auto) 5.6H, Basophils (%) (Auto) 0.3, Neutrophils # (Auto) 3.8, Lymphocytes # (Auto) 1.1L, Monocytes # (Auto) 0.6, Eosinophils # (Auto) 0.3, Basophils # (Auto) 0.0, Nucleated Red Blood Cells % (auto) 0.0, Activated Partial Thromboplast Time 36.1, Blood Gas Bicarbonate Standard 35.4, Venous Blood pH 7.342, Venous Blood Partial Pressure CO2 76.5H, Venous Blood Partial Pressure O2 105.6H, Venous Blood Total Carbon Dioxide 42.9H, Venous Blood HCO3 40.5H, Venous Blood Oxygen Saturation 98.1H, Venous Blood Base Excess 11.6H 12/12/18 19:35: Bedside Glucose (Misc Panel) 107 12/12/18 20:39: Lactic Acid Level 1.1 CBC/BMP Laboratory Tests 12/12/18 19:25 Calcium Level 9.9, Total Creatine Kinase 27 12/12/18 19:26 Red Blood Count 4.21, Mean Corpuscular Volume 95.0, Mean Corpuscular Hemoglobin 28.3, Mean Corpuscular Hemoglobin Concent 29.8 L, Red Cell Distribution Width 14.1, Neutrophils (%) (Auto) 64.6, Lymphocytes (%) (Auto) 18.9 L, Monocytes (%) (Auto) 10.1 H, Eosinophils (%) (Auto) 5.6 H, Basophils (%) (Auto) 0.3, Neutrophils # (Auto) 3.8, Lymphocytes # (Auto) 1.1 L, Monocytes # (Auto) 0.6, Eosinophils # (Auto) 0.3, Basophils # (Auto) 0.0 Microbiology Microbiology 12/12/18 Blood Culture, Received Pending 12/12/18 Blood Culture, Received Pending TODAY'S LABORATORY DATA, IMAGING STUDIES, MICROBIOLOGY: PLS SEE BELOW ASSESSMENT AND PLAN: 58 year old female with multiple medical problems including End Stage COPD with chronic respiratory failure with hypoxia and hypercarbic, orthostatic hypotension, Morbid obesity BMI 44.0, probably Sleep apnea needs formal testing, diastolic CHF was in her usual state of health. This evening around 6 pm she had to go to the bathroom urgently so tigre up from her seat and immediately started rushing to the bathroom with her walker she felt a blackness coming over her eyes and she passed out and fell forward over her walker on her face and knees. After hitting the floor she immediately gained consciousness and pressed her Life alert. On presentation to the ED she had a deep laceration on the right knee which was stitched ( 14 stitches) and both the knees were badly bruised and swollen. She also had some abrasion and bruising on her face and nose. On my interview she complained of severe bilateral knee pain throbbing in nature , 10/10 in intensity located on both the knees with no radiation. She also says that her whole body is feeling sore. She is being admitted for syncope and collapse. Syncope and collapse recurrent probably due to orthostatic hypotension, Has resting tachycardia. will increase midodrine dosage, Has sinus tachycardia even when she is sleeping today. Could have an autonomic syndrome also would benefit from cardiology consult for orthostatic hypotension monitor under telemetry for any other cardiac causes. CT head negative. Last Echo was in 2018 which did not have any etiology for syncope. Bilateral knee bruising and right knee laceration stitches in place on the right pain control with percocet and toradol. Acute blood loss due to right knee laceration while on ASA and xarelto -ASA and xarelto held -stitches by ER -ortho consulted recommended elevation on two pillows -if negative DVT on repeat ultrasound, consider restarting anticoagulation in AM Chronic hypercapnic and Hypoxic respiratory failure seems to be at baseline will get ABG prn (too somnolent, unable to be woken up) and tomorrow morning. oxygen supplementation nebs, inhalers as home Saw the associate medical director this week. Has some wheezing today. End Stage COPD last FEV1 in 2012 was 24% with poor effort. albuterol nebs, symbicort in place of breo, prednisone follows with dr Tabor in [place]. sees him every six months. Bronchiectasis stable. Diastolic CHF, stable. Weight seems to be at baseline continue with home diuretics. Dyslipidemia continue home meds Chronic back pain/chronic neck pain. Probable obstructive sleep apnea oupt fu w her associate medical director for sleep study saw associate medical director on 12/12/18 Restless Legs Syndrome ropinirole H/o DVT and PE on Xarelto at home -held due to acute blood loss from right knee laceration. Iron deficiency anemia chronic Orthostatic hypotension on midodrine Gastroesophageal reflux disease. chronic Anxiety. chronic Diastolic CHF with preserved EF strict i/o appears Euvolemic at this time Pulmonary hypertension. complicating care Obesity BMI 44.0 complicating care Plan / VTE VTE Prophylaxis Ordered?: Yes VS, I&O, 24H, Fishbone Vital Signs/I&O Vital Signs Date Time Temp Pulse Resp B/P (MAP) Pulse Ox O2 Delivery O2 Flow Rate FiO2 12/13/18 06:01 119 18 110/59 (76) 97 Nasal Cannula 2.0 12/12/18 18:12 97.5 Laboratory Data 24H LABS Laboratory Tests 2 12/12/18 19:25: Anion Gap 2L, Glomerular Filtration Rate > 60.0, Blood Urea Nitrogen 11, Creatinine 0.91, Sodium Level 136, Potassium Level 4.2, Chloride Level 95L, Carbon Dioxide Level 39H, Calcium Level 9.9, Total Creatine Kinase 27, Magnesium Level 2.0, Creatine Kinase MB 1.1, Creatine Kinase MB Relative Index 4.07H, Troponin I < 0.02, Thyroid Stimulating Hormone (TSH) 0.510 12/12/18 19:26: Immature Granulocyte % (Auto) 0.5, White Blood Count 5.9, Red Blood Count 4.21, Hemoglobin 11.9L, Hematocrit 40.0, Mean Corpuscular Volume 95.0, Mean Corpuscular Hemoglobin 28.3, Mean Corpuscular Hemoglobin Concent 29.8L, Red Cell Distribution Width 14.1, Platelet Count 224, Neutrophils (%) (Auto) 64.6, Lymphocytes (%) (Auto) 18.9L, Monocytes (%) (Auto) 10.1H, Eosinophils (%) (Auto) 5.6H, Basophils (%) (Auto) 0.3, Neutrophils # (Auto) 3.8, Lymphocytes # (Auto) 1.1L, Monocytes # (Auto) 0.6, Eosinophils # (Auto) 0.3, Basophils # (Auto) 0.0, Nucleated Red Blood Cells % (auto) 0.0, Activated Partial Thromboplast Time 36.1, Blood Gas Bicarbonate Standard 35.4, Venous Blood pH 7.342, Venous Blood Partial Pressure CO2 76.5H, Venous Blood Partial Pressure O2 105.6H, Venous Blood Total Carbon Dioxide 42.9H, Venous Blood HCO3 40.5H, Venous Blood Oxygen Saturation 98.1H, Venous Blood Base Excess 11.6H 12/12/18 19:35: Bedside Glucose (Misc Panel) 107 12/12/18 20:39: Lactic Acid Level 1.1 CBC/BMP Laboratory Tests 12/12/18 19:25 Calcium Level 9.9, Total Creatine Kinase 27 12/12/18 19:26 Red Blood Count 4.21, Mean Corpuscular Volume 95.0, Mean Corpuscular Hemoglobin 28.3, Mean Corpuscular Hemoglobin Concent 29.8 L, Red Cell Distribution Width 14.1, Neutrophils (%) (Auto) 64.6, Lymphocytes (%) (Auto) 18.9 L, Monocytes (%) (Auto) 10.1 H, Eosinophils (%) (Auto) 5.6 H, Basophils (%) (Auto) 0.3, Ne utrophils # (Auto) 3.8, Lymphocytes # (Auto) 1.1 L, Monocytes # (Auto) 0.6, Eosinophils # (Auto) 0.3, Basophils # (Auto) 0.0 Microbiology Microbiology 12/12/18 Blood Culture, Received Pending 12/12/18 Blood Culture, Received Pending PORTIA QUIROZ MD Dec 13, 2018 07:00
[2018-12-13] MEDS ORDERED: NS 1,000 ML IV SCH (15:45)
[2018-12-13 16:00] VITALS: BP 121/64
--- NOTE | 2018-12-13 18:24 | REP ---
Clinical: Syncope. Collapse. Technique: Real time warren scale and color Doppler evaluation using linear high frequency and curved array transducers. Findings: Examination is severely limited due to edema and overlying bandage material. There is no evidence for deep venous thrombosis involving the bilateral common femoral veins, superficial femoral veins and left popliteal vein. The right popliteal vein is not visualized. Impression: Limited examination as noted above. No deep venous thrombosis identified. Electronically Signed by Lee Wolf MD 12/13/2018 06:16 P
[2018-12-13 20:00] VITALS: BP 107/67
--- NOTE | 2018-12-13 20:02 | REP ---
Clinical: Syncope . Technique: Cochran scale and color Doppler evaluation using linear high frequency transducer Findings: Two-dimensional cochran scale and color images demonstrate mild mixed atheromatous plaquing with no appreciable narrowing. Color Doppler interrogation demonstrates normal arterial wave patterns and velocities with no significant spectral broadening. Normal flow direction is appreciated in the bilateral vertebral arteries. RIGHT (cm/s) LEFT (cm/s) ICA peak systolic velocity 63.4 81.4 ICA diastolic velocity 27.3 32.9 ECA peak systolic velocity 65.9 49.1 CCA peak systolic velocity 87.0 88.8 ICA/CCA ratio 0.73 0.79 Impression: No hemodynamically significant areas of narrowing or stenosis appreciated. Based on set standards narrowing falls within the less than 50% range. Electronically Signed by Lee Wolf MD 12/13/2018 07:53 P
[2018-12-13] MEDS: SENNA 8.6 MG TAB (SENOKOT) PO SCH (20:55)
[2018-12-14] VITALS (7 sets, daily range): BP systolic 120–140; BP diastolic 60–79
[2018-12-14] MEDS: PERCOCET 5MG/325MG TAB PO PRN ×4 (03:11→21:26)
[2018-12-14] MEDS: SLF 3 ML SYR IV SCH ×3 (05:40→21:29)
[2018-12-14 07:31] LABS: CALCIUM LEVEL 8.1 MG/DL (8.8-10.2); CREATININE FOR GFR 1.64 MG/DL (0.55-1.30); POTASSIUM SERUM 4.8 MEQ/L (3.5-5.1)
[2018-12-14] MEDS: SYMBICORT 160/4.5MCG INHALER 6GM INH SCH ×2 (07:48→19:57)
[2018-12-14] MEDS ORDERED: MAGNESIUM SULFATE 1 GM/100 ML D5W BAG (10MG/ML) (J3475) As Ordered ONE (09:08)
[2018-12-14] MEDS: ALPRAZolam 0.5 MG TAB PO SCH ×2 (09:11→21:26)
[2018-12-14] MEDS ORDERED: MAG SULF 1GM/100ML (MAG RUN) 1 GM in APPROPRIATE DILUENT 1 EA IV ONE ×2 (09:15→10:00)
[2018-12-14 09:56] LABS: CK-MB VALUE MASS 1.6 NG/ML (<3.6); CPK CREATINE PHOSPHOKINASE 24 U/L (26-192); MB/CK RELATIVE INDEX 6.67 (< OR =4); TROPONIN I < 0.02 NG/ML (< 0.10)
--- NOTE | 2018-12-14 09:57 | IPNPDOC ---
Date Seen The patient was seen on 12/14/18. Progress Note SUBJECTIVE: Tele: torsades. given iv magnesium, stat echo, and serial card ontiveros. Pt denies any chest pain, pressure, tightness,palpitations, lightheadeness, or recurrent syncope. 5/10 pain in right knee when supine. c/o restless legs this am requesting more ropinirole and continuing her meds for back pain. c/o neck and back pain 6/10 on pain scale even when lying down. "no," when offered a heating pad, "just my pain meds from home." No recurrent hematoma or active bleeding from bandaged and stitched right knee s/p laceration from her fall. Per ortho 12/13/18 Dr. Ling, pt is to keep her knee higher than her heart and on two pillows at all times. Hgb still >8. OBJECTIVE: Physical Examination VITALS: PLS SEE BELOW General Exam: Positive: Alert, Cooperative, Moderate Distress (from pain) Eye Exam: Positive: PERRLA, Conjunctiva & lids normal, EOMI; Negative: Sclera icteric ENT Exam: Positive: Mucous membr. moist/pink, Pharynx Normal, Tongue Midline, Nares Patent, Other ENT (broising on the bridge of the nose) Neck Exam: Positive: Supple; Negative: JVD, thyromegaly Chest Exam: Positive: Rhonchi, Wheezing (scattered heard on deep expiration), Diminished Heart Exam: Positive: Tachycardic, Regular Rhythm, Normal S1, Normal S2; Negative: Gallops, Murmurs, Rubs Telemetry: Positive: Sinus, Tachycardia Abdomen Exam: Positive: Normal bowel sounds, Soft; Negative: Tenderness, Hepatospenomegaly Extremity Exam: Positive: Tenderness (both knees), Swelling (both knees) Skin Exam: Positive: Breakdown (laceration over the right knee with stitches, actively oozing red blood, and clots on the thigh and along the leg-being changed by the RN. Neuro Exam: Positive: Normal Speech, Strength at 5/5 X4 ext, Normal Tone, Sensation Intact, Other (static tremor of left leg noted says RLS however may be parkinsons) Psych Exam: Positive: Anxiety, Memory Intact, Oriented x 3 ADMISSION LABORATORY DATA: 12/12/18 19:25: Anion Gap 2L, Glomerular Filtration Rate > 60.0, Blood Urea Nitrogen 11, Creatinine 0.91, Sodium Level 136, Potassium Level 4.2, Chloride Level 95L, Carbon Dioxide Level 39H, Calcium Level 9.9, Total Creatine Kinase 27, Magnesium Level 2.0, Creatine Kinase MB 1.1, Creatine Kinase MB Relative Index 4.07H, Troponin I < 0.02, Thyroid Stimulating Hormone (TSH) 0.510 12/12/18 19:26: Immature Granulocyte % (Auto) 0.5, White Blood Count 5.9, Red Blood Count 4.21, Hemoglobin 11.9L, Hematocrit 40.0, Mean Corpuscular Volume 95.0, Mean Corpuscular Hemoglobin 28.3, Mean Corpuscular Hemoglobin Concent 29.8L, Red Cell Distribution Width 14.1, Platelet Count 224, Neutrophils (%) (Auto) 64.6, Lymphocytes (%) (Auto) 18.9L, Monocytes (%) (Auto) 10.1H, Eosinophils (%) (Auto) 5.6H, Basophils (%) (Auto) 0.3, Neutrophils # (Auto) 3.8, Lymphocytes # (Auto) 1.1L, Monocytes # (Auto) 0.6, Eosinophils # (Auto) 0.3, Basophils # (Auto) 0.0, Nucleated Red Blood Cells % (auto) 0.0, Activated Partial Thromboplast Time 36.1, Blood Gas Bicarbonate Standard 35.4, Venous Blood pH 7.342, Venous Blood Partial Pressure CO2 76.5H, Venous Blood Partial Pressure O2 105.6H, Venous Blood Total Carbon Dioxide 42.9H, Venous Blood HCO3 40.5H, Venous Blood Oxygen Saturation 98.1H, Venous Blood Base Excess 11.6H 12/12/18 19:35: Bedside Glucose (Misc Panel) 107 12/12/18 20:39: Lactic Acid Level 1.1 CBC/BMP Laboratory Tests 12/12/18 19:25 Calcium Level 9.9, Total Creatine Kinase 27 12/12/18 19:26 Red Blood Count 4.21, Mean Corpuscular Volume 95.0, Mean Corpuscular Hemoglobin 28.3, Mean Corpuscular Hemoglobin Concent 29.8 L, Red Cell Distribution Width 14.1, Neutrophils (%) (Auto) 64.6, Lymphocytes (%) (Auto) 18.9 L, Monocytes (%) (Auto) 10.1 H, Eosinophils (%) (Auto) 5.6 H, Basophils (%) (Auto) 0.3, Neutrophils # (Auto) 3.8, Lymphocytes # (Auto) 1.1 L, Monocytes # (Auto) 0.6, Eosinophils # (Auto) 0.3, Basophils # (Auto) 0.0 Microbiology Microbiology 12/12/18 Blood Culture, Received Pending 12/12/18 Blood Culture, Received Pending TODAY'S LABORATORY DATA, IMAGING STUDIES, MICROBIOLOGY: PLS SEE BELOW ASSESSMENT AND PLAN: 58 year old female with multiple medical problems including End Stage COPD with chronic respiratory failure with hypoxia and hypercarbic, orthostatic hypotension, Morbid obesity BMI 44.0, probably Sleep apnea needs formal testing, diastolic CHF was in her usual state of health. This evening around 6 pm she had to go to the bathroom urgently so tigre up from her seat and immediately started rushing to the bathroom with her walker she felt a blackness coming over her eyes and she passed out and fell forward over her walker on her face and knees. After hitting the floor she immediately gained consciousness and pressed her Lif e alert. On presentation to the ED she had a deep laceration on the right knee which was stitched ( 14 stitches) and both the knees were badly bruised and swollen. She also had some abrasion and bruising on her face and nose. On my interview she complained of severe bilateral knee pain throbbing in nature , 10/10 in intensity located on both the knees with no radiation. She also says that her whole body is feeling sore. She is being admitted for syncope and collapse. Syncope and collapse recurrent probably due to orthostatic hypotension, Has resting tachycardia. will increase midodrine dosage, Has sinus tachycardia even when she is sleeping today. Could have an autonomic syndrome also would benefit from cardiology consult for orthostatic hypotension monitor under telemetry for any other cardiac causes. CT head negative. Last Echo was in 2018 which did not have any etiology for syncope. Abnormal Telemetry/ Torsades -electrolytes optimized, supportive care with oxygen -checked serial card ontiveros, echo, and continued tele monitoring -blood pressure is maintained. right knee laceration with significant blood loss due to ASA and xarelto stitches in place on the right pain control with percocet and toradol. Acute blood loss due to right knee laceration while on ASA and xarelto -ASA and xarelto held -stitches by ER -ortho consulted recommended elevation on two pillows -if negative DVT on repeat ultrasound, consider restarting anticoagulation in AM Chronic hypercapnic and Hypoxic respiratory failure seems to be at baseline will get ABG prn (too somnolent, unable to be woken up) and tomorrow morning. oxygen supplementation nebs, inhalers as home Saw the director professional services this week. Has some wheezing today. End Stage COPD last FEV1 in 2012 was 24% with poor effort. albuterol nebs, symbicort in place of breo, prednisone follows with dr Tabor in [place]. sees him every six months. Bronchiectasis stable. Diastolic CHF, stable. Weight seems to be at baseline continue with home diuretics. Dyslipidemia continue home meds Chronic back pain/chronic neck pain. Probable obstructive sleep apnea oupt fu w her director professional services for sleep study saw director professional services on 12/12/18 Restless Legs Syndrome ropinirole H/o DVT and PE on Xarelto at home -held due to acute blood loss from right knee laceration on 12/13/18 -no DVT on repeat ultrasound of the lower extremities -ct chest w iv contrast could not be done on 12/13 due to allergy to contrast -resumed xarelton 12/14 since right knee stopped bleeding Iron deficiency anemia chronic Orthostatic hypotension on midodrine Gastroesophageal reflux disease. chronic Anxiety. chronic Diastolic CHF with preserved EF strict i/o appears Euvolemic at this time recheck CXR Pulmonary hypertension. complicating care Obesity BMI 44.0 complicating care Plan / VTE VTE Prophylaxis Ordered?: Yes VS, I&O, 24H, Fishbone Vital Signs/I&O Vital Signs Date Time Temp Pulse Resp B/P (MAP) Pulse Ox O2 Delivery O2 Flow Rate FiO2 12/14/18 04:00 2.0 12/14/18 03:41 18 12/14/18 00:00 97.4 88 133/77 (95) 94 12/13/18 20:15 Nasal Cannula I&O- Last 24 Hours up to 6 AM 12/14/18 06:00 Intake Total 1370 ml Output Total 0 ml Balance 1370 ml Laboratory Data 24H LABS Laboratory Tests 2 12/13/18 07:17: Blood Gas Bicarbonate Standard 33.3H, Arterial Blood pH 7.378, Arterial Blood Partial Pressure CO2 63.5*H, Arterial Blood Partial Pressure O2 106.9H, Arterial Blood Total CO2 38.5H, Arterial Blood HCO3 36.6H, Arterial Blood Base Excess 9.5H, Arterial Blood Oxygen Saturation 98.1 12/13/18 09:45: Anion Gap 6L, Glomerular Filtration Rate 43.3L, Blood Urea Nitrogen 17#, Creatinine 1.33H, Sodium Level 138, Potassium Level 4.7, Chloride Level 96L, Carbon Dioxide Level 36H, Calcium Level 8.5L 12/13/18 10:00: Nucleated Red Blood Cells % (auto) 0.0 12/13/18 21:30: Whole Blood Ionized Calcium 4.5 CBC/BMP Laboratory Tests 12/13/18 09:32 12/13/18 09:45 Calcium Level 8.5 L 12/13/18 10:00 Red Blood Count 3.45 L, Mean Corpuscular Volume 95.9, Mean Corpuscular Hemoglobin 28.7, Mean Corpuscular Hemoglobin Concent 29.9 L, Red Cell Distribution Width 14.2 12/13/18 15:07 12/13/18 21:30 12/14/18 03:28 Microbiology Microbiology 12/12/18 Blood Culture - Preliminary, Resulted 12/12/18 Blood Culture - Preliminary, Resulted No growth after 24 hours . All specim... PORTIA QUIROZ MD Dec 14, 2018 06:30
[2018-12-14] MEDS: OMEPRAZOLE 20 MG CAP PO SCH ×2 (09:58→21:25)
[2018-12-14] MEDS: MIDODRINE 5 MG TAB PO SCH ×3 (09:58→17:18)
[2018-12-14] MEDS: ESCITALOPRAM OXALATE 10 MG TAB (LEXAPRO) PO SCH (09:58)
[2018-12-14] MEDS: VITAMIN D 1,000 INTERNATIONAL UNITS TABLET PO SCH (09:58)
[2018-12-14] MEDS: FOLIC ACID 1 MG TAB PO SCH (09:58)
[2018-12-14] MEDS: FERROUS SULFATE 325MG TAB PO SCH (09:59)
[2018-12-14] MEDS: DOCUSATE SODIUM 100 MG CAP PO SCH ×2 (09:59→21:26)
[2018-12-14] MEDS: predniSONE 20 MG TAB PO SCH (09:59)
[2018-12-14] MEDS: lamoTRIgine 100MG TAB PO SCH (09:59)
[2018-12-14] MEDS: busPIRone 5 MG TAB PO SCH ×3 (09:59→21:25)
[2018-12-14] MEDS ORDERED: NALOXONE INJ 0.4 MG/1 ML VIAL (J2310) IV PRN (10:00)
[2018-12-14] MEDS: NS 1,000 ML IV SCH ×2 (10:00→20:09)
[2018-12-14] MEDS ORDERED: rOPINIRole 1MG TAB PO ONE (10:30)
[2018-12-14] MEDS: ALBUTEROL SULFATE 2.5 MG/0.5 ML INH NEB SOLN NEB PRN ×2 (11:31→15:30)
[2018-12-14 12:26] LABS: CK-MB VALUE MASS 1.7 NG/ML (<3.6); CPK CREATINE PHOSPHOKINASE 24 U/L (26-192); MB/CK RELATIVE INDEX 7.08 (< OR =4); TROPONIN I < 0.02 NG/ML (< 0.10)
--- NOTE | 2018-12-14 15:02 | REP ---
Clinical: Shortness of breath . Comparison: 12/12/2018 . Findings: The mediastinum and cardiac silhouette are stable and within normal limits for portable technique. The lung white are clear without acute consolidation, effusion, or pneumothorax. Skeletal structures are intact. Impression: No acute cardiopulmonary process appreciated. Electronically Signed by Lee Wolf MD 12/14/2018 09:32 A
[2018-12-14] MEDS: RIVAROXABAN 10 MG TAB (XARELTO) PO SCH (17:18)
[2018-12-14 18:47] LABS: CK-MB VALUE MASS 1.6 NG/ML (<3.6); CPK CREATINE PHOSPHOKINASE 23 U/L (26-192); MB/CK RELATIVE INDEX 6.96 (< OR =4); TROPONIN I < 0.02 NG/ML (< 0.10)
[2018-12-14] MEDS ORDERED: FOSFOMYCIN TROMETHAMINE 3 GM POWDER PACKET (MONUROL) PO ONE (19:15)
[2018-12-14] MEDS ORDERED: APIXABAN 5 MG TAB (ELIQUIS) PO SCH (21:00)
[2018-12-14] MEDS: SIMVASTATIN 20 MG TAB PO SCH (21:25)
[2018-12-14] MEDS: rOPINIRole 2MG TAB PO SCH (21:25)
[2018-12-14] MEDS: SENNA 8.6 MG TAB (SENOKOT) PO SCH (21:25)
--- NOTE | 2018-12-14 21:28 | REP ---
Clinical: Possible aspiration pneumonia . Comparison: 12/14/2018 at 09:22 a.m. . Findings: The mediastinum and cardiac silhouette are stable and within normal limits for portable technique. The lung white are clear without acute consolidation, effusion, or pneumothorax. Skeletal structures are intact. Impression: No acute cardiopulmonary process appreciated. Electronically Signed by Lee Wolf MD 12/14/2018 09:20 P
--- NOTE | 2018-12-14 21:32 | REP ---
Clinical: Aspiration. Foreign body. Technique: AP and lateral soft tissue neck radiographs. Four images total. Findings: Examination is limited although no obvious acute foreign body is appreciated. Prevertebral soft tissues are normal. Osseous structures demonstrate osteopenia and degenerative change. Impression: No obvious foreign body identified. Electronically Signed by Lee Wolf MD 12/14/2018 09:24 P
[2018-12-14 22:44] LABS: CALCIUM LEVEL 8.4 MG/DL (8.8-10.2); CREATININE FOR GFR 1.37 MG/DL (0.55-1.30); GLOMERULAR FILTRATION RATE 41.9 (>45); POTASSIUM SERUM 4.7 MEQ/L (3.5-5.1)
[2018-12-15] VITALS (7 sets, daily range): BP systolic 112–156; BP diastolic 58–78
[2018-12-15 00:27] LABS: CPK CREATINE PHOSPHOKINASE 29 U/L (26-192); TROPONIN I < 0.02 NG/ML (< 0.10)
[2018-12-15] MEDS: PERCOCET 5MG/325MG TAB PO PRN ×4 (04:20→23:52)
[2018-12-15] MEDS: SLF 3 ML SYR IV SCH ×3 (05:06→22:27)
--- NOTE | 2018-12-15 06:17 | ECHO ---
DATE OF PROCEDURE: 12/14/2018 DATE OF : 1960 AGE: 58 REFERRING PROVIDER: Dr. Cathi Escalera ROOM NUMBER: [id number] REASON FOR THE ECHOCARDIOGRAM: Supraventricular tachycardia (SVT). 2-D MEASUREMENTS: IVS: 1.2 cm LV: 4.0 cm LVPW: 1.2 cm LA: 3.4 cm Aorta: 3.0 cm RV: 3.0 cm IVC: 2.0 cm DOPPLER MEASUREMENTS: Peak velocity across the aortic valve: 1.2 m/s Peak velocity across the LVOT: 1.1 m/s Mitral E: 0.57, Mitral A: 0.80 with a ratio of 0.7 Maximum tricuspid valve velocity: 3.2 m/s 2-D COMMENTS: 1. Normal left ventricular size, wall thickness, and normal global left ventricular systolic function with a hyperdynamic left ventricle. The estimated global left ventricular systolic ejection fraction is 65-70%. 2. The right atrium appeared to be mildly enlarged in limited views. The right ventricle also to be mildly enlarged and RV free wall appeared to be thickened consistent with right ventricular hypertrophy. 3. The atrial septum appeared to be normal without evidence of defect or shunt. 4. Normal aortic root. 5. Small pericardial effusion noted in limited views, no evidence of cardiac tamponade. 5. Mildly calcified aortic valve with normal leaflet excursion. Normal mitral valve, tricuspid valve, but the pulmonic valve and proximal pulmonary artery branches were not well visualized. 6. The inferior vena cava was mildly enlarged but with good respiratory variation. DOPPLER: Abnormal relaxation pattern was noted across the mitral valve leaflets as well as the mitral valve annulus consistent with features of a grade 1 left ventricular diastolic dysfunction. IMPRESSION: 1. Normal global left ventricular systolic function. There are features of left ventricular diastolic dysfunction manifested by abnormal relaxation. 2. Aortic valve sclerosis without stenosis or aortic regurgitation. 3. Mild to moderate tricuspid regurgitation with moderate pulmonary hypertension. The right heart chambers appeared to be mildly enlarged in limited views. 4. A small pericardial effusion was noted, no evidence of cardiac tamponade. MTDD
--- NOTE | 2018-12-15 06:58 | REPVR ---
EXAM: CT Head Without Contrast EXAM DATE/TIME: 12/15/2018 6:46 AM CLINICAL HISTORY: 58 years old, female; Altered mental status/memory loss; Confusion or disorientation; Additional info: Aspiration altered mental status R/O CVA TECHNIQUE: Imaging protocol: Axial computed tomography images of the head without contrast. Radiation optimization: All CT scans at this facility use at least one of these dose optimization techniques: automated exposure control; mA and/or kV adjustment per patient size (includes targeted exams where dose is matched to clinical indication); or iterative reconstruction. COMPARISON: CT Head without contrast 12/12/2018 7:36 PM FINDINGS: Brain: Normal. No hemorrhage. Unremarkable white matter. No mass effect. Ventricles: Normal. No ventriculomegaly. Bones/joints: Unremarkable. No acute fracture. Sinuses: Mild mucosal thickening of the left ethmoidal air cells. Mastoid air cells: Visualized mastoid air cells are well aerated. No mastoid effusion. Soft tissues: Unremarkable. IMPRESSION: No intracranial abnormality. Electronically signed by: Iva Ruiz On 12/15/2018 06:58:24 AM
[2018-12-15] MEDS: SYMBICORT 160/4.5MCG INHALER 6GM INH SCH ×2 (07:24→20:47)
[2018-12-15 07:48] LABS: HEMATOCRIT 22.3 % (36.0-47.0); MEAN CORPUSCULAR HEMOGLOBIN 28.4 pg (27.0-33.0); MEAN CORPUSCULAR VOLUME 94.5 fl (80.0-96.0); PLATELET COUNT, AUTOMATED 254 10^3/uL (150-450); RED BLOOD COUNT 2.36 10^6/uL (4.00-5.40); WHITE BLOOD COUNT 7.1 10^3/uL (4.0-10.0)
[2018-12-15 07:52] LABS: HEMOGLOBIN 6.7 g/dl (12.0-15.5)
[2018-12-15 08:13] LABS: ERYTHROCYTE SEDIMENTATION RATE 68 mm/hr (0-30)
[2018-12-15 08:16] LABS: C REACTIVE PROTEIN QUANTITATIV 3.67 MG/DL (0.00-0.30); CALCIUM LEVEL 7.9 MG/DL (8.8-10.2); CK-MB VALUE MASS 2.1 NG/ML (<3.6); CREATININE FOR GFR 1.1 MG/DL (0.55-1.30); GLOMERULAR FILTRATION RATE 53.9 (>45); MB/CK RELATIVE INDEX 8.08 (< OR =4); POTASSIUM SERUM 4.8 MEQ/L (3.5-5.1); TROPONIN I 0.02 NG/ML (< 0.10)
[2018-12-15] MEDS: predniSONE 20 MG TAB PO SCH (09:10)
[2018-12-15] MEDS: OMEPRAZOLE 20 MG CAP PO SCH ×2 (09:10→20:21)
--- NOTE | 2018-12-15 09:10 | REP ---
Clinical: Trauma. Fall. Laceration and hematoma. Technique: Real time warren scale and color evaluation using high frequency transducer. Findings: Directed ultrasound examination of the right knee at the site of injury demonstrates subcutaneous edema. A small hypoechoic collection anterior to the tibia measures 5.3 x 1.5 x 0.5 cm with a linear echogenic focus and posterior dirty shadowing suggesting possible hematoma with small amount of gas due to laceration. A smaller hypoechoic collection is also identified measuring 0.9 x 0.3 x 2.5 cm which may represent smaller focal hematoma. Impression: Two small hypoechoic area suggesting small hematomas possibly with gas due to laceration. Electronically Signed by Lee Wolf MD 12/15/2018 09:02 A
[2018-12-15] MEDS: VITAMIN D 1,000 INTERNATIONAL UNITS TABLET PO SCH (09:11)
[2018-12-15] MEDS: ALPRAZolam 0.5 MG TAB PO SCH ×2 (09:11→20:20)
[2018-12-15] MEDS: ESCITALOPRAM OXALATE 10 MG TAB (LEXAPRO) PO SCH (09:11)
[2018-12-15] MEDS: FOLIC ACID 1 MG TAB PO SCH (09:11)
[2018-12-15] MEDS: MIDODRINE 5 MG TAB PO SCH ×3 (09:11→16:21)
[2018-12-15] MEDS: busPIRone 5 MG TAB PO SCH ×3 (09:11→20:19)
[2018-12-15] MEDS: DOCUSATE SODIUM 100 MG CAP PO SCH ×2 (09:12→20:19)
[2018-12-15] MEDS: FERROUS SULFATE 325MG TAB PO SCH (09:12)
[2018-12-15] MEDS: lamoTRIgine 100MG TAB PO SCH (09:12)
[2018-12-15] MEDS: ALBUTEROL SULFATE 2.5 MG/0.5 ML INH NEB SOLN NEB PRN ×3 (11:19→23:43)
--- NOTE | 2018-12-15 12:11 | IPNPDOC ---
Date Seen The patient was seen on 12/15/18. Progress Note SUBJECTIVE: Patient choked on her dinner last night and had a chunk of food bolus retrieved. CXR no pneumonitis. CT Neck: no foreign object. pt has been kept npo and on ivfluids since. swallow eval Sunday. pt denies any dysphagia to liquids and able to take her meds. afebrile overnight. Tele 12/14 am-torsades given iv mg, 02 sat>90%, optimized electrolytes, card ontiveros unremarkable and Echo reviewed. Pt says she has no chest pain, pressure,tightness, lightheadedness, diaphoresis. she c/o anxiety and unchanged restless legs . no cough or worsening sob. OBJECTIVE: Physical Examination VITALS: PLS SEE BELOW General Exam: Positive: Alert, Cooperative, Moderate Distress (from pain) Eye Exam: Positive: PERRLA, Conjunctiva & lids normal, EOMI; Negative: Sclera icteric ENT Exam: Positive: Mucous membr. moist/pink, Pharynx Normal, Tongue Midline, Nares Patent, Other ENT (broising on the bridge of the nose) Neck Exam: Positive: Supple; Negative: JVD, thyromegaly Chest Exam: Positive: Rhonchi, Wheezing (scattered heard on deep expiration), Diminished Heart Exam: Positive: Tachycardic, Regular Rhythm, Normal S1, Normal S2; Negative: Gallops, Murmurs, Rubs Telemetry: Positive: Sinus, Tachycardia Abdomen Exam: Positive: Normal bowel sounds, Soft; Negative: Tenderness, Hepatospenomegaly Extremity Exam: Positive: Tenderness (both knees), Swelling (both knees) Skin Exam: Positive: Breakdown (laceration over the right knee with stitches, actively oozing red blood, and clots on the thigh and along the leg-being changed by the RN. Neuro Exam: Positive: Normal Speech, Strength at 5/5 X4 ext, Normal Tone, Sensation Intact, Other (static tremor of left leg noted says RLS however may be parkinsons) Psych Exam: Positive: Anxiety, Memory Intact, Oriented x 3 ADMISSION LABORATORY DATA: 12/12/18 19:25: Anion Gap 2L, Glomerular Filtration Rate > 60.0, Blood Urea Nitrogen 11, Creatinine 0.91, Sodium Level 136, Potassium Level 4.2, Chloride Level 95L, Carbon Dioxide Level 39H, Calcium Level 9.9, Total Creatine Kinase 27, Magnesium Level 2.0, Creatine Kinase MB 1.1, Creatine Kinase MB Relative Index 4.07H, Troponin I < 0.02, Thyroid Stimulating Hormone (TSH) 0.510 12/12/18 19:26: Immature Granulocyte % (Auto) 0.5, White Blood Count 5.9, Red Blood Count 4.21, Hemoglobin 11.9L, Hematocrit 40.0, Mean Corpuscular Volume 95.0, Mean Corpuscular Hemoglobin 28.3, Mean Corpuscular Hemoglobin Concent 29.8L, Red Cell Distribution Width 14.1, Platelet Count 224, Neutrophils (%) (Auto) 64.6, Lymphocytes (%) (Auto) 18.9L, Monocytes (%) (Auto) 10.1H, Eosinophils (%) (Auto) 5.6H, Basophils (%) (Auto) 0.3, Neutrophils # (Auto) 3.8, Lymphocytes # (Auto) 1.1L, Monocytes # (Auto) 0.6, Eosinophils # (Auto) 0.3, Basophils # (Auto) 0.0, Nucleated Red Blood Cells % (auto) 0.0, Activated Partial Thromboplast Time 36.1, Blood Gas Bicarbonate Standard 35.4, Venous Blood pH 7.342, Venous Blood Partial Pressure CO2 76.5H, Venous Blood Partial Pressure O2 105.6H, Venous Blood Total Carbon Dioxide 42.9H, Venous Blood HCO3 40.5H, Venous Blood Oxygen Saturation 98.1H, Venous Blood Base Excess 11.6H 12/12/18 19:35: Bedside Glucose (Misc Panel) 107 12/12/18 20:39: Lactic Acid Level 1.1 CBC/BMP Laboratory Tests 12/12/18 19:25 Calcium Level 9.9, Total Creatine Kinase 27 12/12/18 19:26 Red Blood Count 4.21, Mean Corpuscular Volume 95.0, Mean Corpuscular Hemoglobin 28.3, Mean Corpuscular Hemoglobin Concent 29.8 L, Red Cell Distribution Width 14.1, Neutrophils (%) (Auto) 64.6, Lymphocytes (%) (Auto) 18.9 L, Monocytes (%) (Auto) 10.1 H, Eosinophils (%) (Auto) 5.6 H, Basophils (%) (Auto) 0.3, Neutrophils # (Auto) 3.8, Lymphocytes # (Auto) 1.1 L, Monocytes # (Auto) 0.6, Eosinophils # (Auto) 0.3, Basophils # (Auto) 0.0 Microbiology Microbiology 12/12/18 Blood Culture, Received Pending 12/12/18 Blood Culture, Received Pending TODAY'S LABORATORY DATA, IMAGING STUDIES, MICROBIOLOGY: PLS SEE BELOW ASSESSMENT AND PLAN: 58 year old female with multiple medical problems including End Stage COPD with chronic respiratory failure with hypoxia and hypercarbic, orthostatic hypotension, Morbid obesity BMI 44.0, probably Sleep apnea needs formal testing, diastolic CHF was in her usual state of health. This evening around 6 pm she had to go to the bathroom urgently so tigre up from her seat and immediately started rushing to the bathroom with her walker she felt a blackness coming over her eyes and she passed out and fell forward over her walker on her face and knees. After hitting the floor she immediately gained consciousness and pressed her Life alert. On presentation to the ED she had a deep laceration on the right knee which was stitched ( 14 stitches) and both the knees were badly bruised and swollen. She also had some abrasion and bruising on her face and nose. On my interview she complained of severe bilateral knee pain throbbing in nature , 10/10 in intensity located on both the knees with no radiation. She also says that her whole body is feeling sore. She is being admitted for syncope and collapse. Syncope and collapse recurrent probably due to orthostatic hypotension, Has resting tachycardia. will increase midodrine dosage, Has sinus tachycardia even when she is sleeping today. Could have an autonomic syndrome also would benefit from cardiology consult for orthostatic hypotension monitor under telemetry for any other cardiac causes. CT head negative. Last Echo was in 2018 which did not have any etiology for syncope. Dysphagia to solids Patient choked on her dinner last night and had a chunk of food bolus retrieved. CXR no pneumonitis. CT Neck: no foreign object. pt has been kept npo and on ivfluids since. pt denies any dysphagia to liquids and able to take her meds. afebrile overnight. Pt says she has no chest pain, pressure,tightness, lightheadedness, diaphoresis. . no cough or worsening sob. Abnormal Telemetry/ Torsades -electrolytes optimized, supportive care with oxygen -checked serial card ontiveros, echo, and continued tele monitoring -blood pressure is maintained. right knee laceration with significant blood loss due to ASA and xarelto stitches in place on the right pain control with percocet and toradol. Acute blood loss due to right knee laceration while on ASA and xarelto -ASA and xarelto held -stitches by ER -ortho consulted recommended elevation on two pillows -Due to significant anemia, 2 units rbc transfusion 12/15/18 Chronic hypercapnic and Hypoxic respiratory failure seems to be at baseline will get ABG prn (too somnolent, unable to be woken up) and tomorrow morning. oxygen supplementation nebs, inhalers as home Saw the community health program representative this week. Has some wheezing today. End Stage COPD last FEV1 in 2012 was 24% with poor effort. albuterol nebs, symbicort in place of breo, prednisone follows with dr Tabor in [place]. sees him every six months. Bronchiectasis stable. Diastolic CHF, stable. Weight seems to be at baseline continue with home diuretics. Dyslipidemia continue home meds Chronic back pain/chronic neck pain. Probable obstructive sleep apnea oupt fu w her community health program representative for sleep study saw community health program representative on 12/12/18 Restless Legs Syndrome ropinirole H/o DVT and PE on Xarelto at home -held due to acute blood loss from right knee laceration on 12/13/18 -no DVT on repeat ultrasound of the lower extremities -ct chest w iv contrast could not be done on 12/13 due to allergy to contrast -resumed xarelton 12/14 since right knee stopped bleeding Iron deficiency anemia chronic Orthostatic hypotension on midodrine Gastroesophageal reflux disease. chronic Anxiety. chronic Diastolic CHF with preserved EF strict i/o appears Euvolemic at this time recheck CXR Pulmonary hypertension. complicating care Obesity BMI 44.0 complicating care Plan / VTE VTE Prophylaxis Ordered?: Yes VS, I&O, 24H, Fishbone Vital Signs/I&O Vital Signs Date Time Temp Pulse Resp B/P (MAP) Pulse Ox O2 Delivery O2 Flow Rate FiO2 12/15/18 04:50 18 2.0 12/15/18 04:00 96.9 90 126/65 (85) 98 12/14/18 20:00 Nasal Cannula I&O- Last 24 Hours up to 6 AM 12/15/18 06:00 Intake Total 1360 ml Output Total 750 ml Balance 610 ml Laboratory Data 24H LABS Laboratory Tests 2 12/14/18 08:59: Total Creatine Kinase 24L, Creatine Kinase MB 1.6, Creatine Kinase MB Relative Index 6.67H, Troponin I < 0.02 12/14/18 11:50: Total Creatine Kinase 24L, Creatine Kinase MB 1.7, Creatine Kinase MB Relative Index 7.08H, Troponin I < 0.02 12/14/18 14:56: Ammonia 23 12/14/18 15:25: Urine Color YELLOW, Urine Appearance CLOUDYH, Urine pH 5.0, Urine Specific [place] 1.021, Urine Protein NEGATIVE, Urine Glucose (UA) NEGATIVE, Urine Keto miki NEGATIVE, Urine Blood NEGATIVE, Urine Nitrite NEGATIVE, Urine Bilirubin NEGATIVE, Urine Urobilinogen 0.2, Urine Leukocyte Esterase 1+H, Urine WBC (Auto) 35H, Urine RBC (Auto) 4H, Urine Hyaline Casts (Auto) 50, Urine Bacteria (Auto) 3+H, Urine Squamous Epithelial Cells 5, Urine Mucus (Auto) SMALL, Urine Sperm (Auto) 12/14/18 18:03: Total Creatine Kinase 23L, Creatine Kinase MB 1.6, Creatine Kinase MB Relative Index 6.96H, Troponin I < 0.02 12/14/18 22:04: Anion Gap 4L, Glomerular Filtration Rate 41.9L, Blood Urea Nitrogen 27H, Creatinine 1.37H, Sodium Level 138, Potassium Level 4.7, Chloride Level 101, Carbon Dioxide Level 33H, Calcium Level 8.4L 12/14/18 23:54: Total Creatine Kinase 29, Creatine Kinase MB 2.0, Creatine Kinase MB Relative Index 6.90H, Troponin I < 0.02 CBC/BMP Laboratory Tests 12/14/18 08:59 12/14/18 14:56 12/14/18 22:04 Calcium Level 8.4 L 12/15/18 03:13 Microbiology Microbiology 12/14/18 Blood Culture, Received Pending 12/12/18 Blood Culture - Preliminary, Resulted 12/12/18 Blood Culture - Preliminary, Resulted No Growth after 48 hours. All Specime... 12/14/18 Urine Culture, Received Pending PORTIA QUIROZ MD Dec 15, 2018 06:14
[2018-12-15] MEDS: RIVAROXABAN 10 MG TAB (XARELTO) PO SCH (18:11)
[2018-12-15] MEDS: rOPINIRole 2MG TAB PO SCH (20:19)
[2018-12-15] MEDS: SIMVASTATIN 20 MG TAB PO SCH (20:19)
[2018-12-15] MEDS: SENNA 8.6 MG TAB (SENOKOT) PO SCH (20:20)
[2018-12-15] MEDS: NYSTATIN 100,000 UNITS/GM TOPICAL PWD 15 GM TOP SCH (20:22)
--- NOTE | 2018-12-16 01:17 | ECGEPIP ---
[facility] Test Date: 2018-12-14 Pat Name: JULITO PUENTE Department: Room: [place] [address] Gender: Female [employer]: : 1960 Requested By: PORTIA Rodas Order Number: [id number] Reading MD: Maikel Vick Measurements Intervals [place] Rate: 102 P: 75 MD: 140 QRS: 40 QRSD: 85 T: 42 QT: 313 QTc: 408 Interpretive Statements SINUS TACHYCARDIA ABNORMAL RHYTHM ECG ARTIFACT NOTED ON THE BASELINE MOST RECENT TRACING ON 12/12/2018 AT 6:55 P.M.: NO REMARKABLE CHANGES Electronically Signed on 12-16-2018 1:17:32 EDT by Maikel Vick
[2018-12-16 04:45] VITALS: BP 148/75
[2018-12-16] MEDS: PERCOCET 5MG/325MG TAB PO PRN ×3 (05:54→18:37)
[2018-12-16] MEDS: SLF 3 ML SYR IV SCH ×2 (05:55→14:00)
[2018-12-16 08:00] VITALS: BP 133/70
[2018-12-16] MEDS: SYMBICORT 160/4.5MCG INHALER 6GM INH SCH ×2 (08:07→20:18)
[2018-12-16] MEDS: VITAMIN D 1,000 INTERNATIONAL UNITS TABLET PO SCH (08:12)
[2018-12-16] MEDS: FOLIC ACID 1 MG TAB PO SCH (08:13)
[2018-12-16] MEDS: OMEPRAZOLE 20 MG CAP PO SCH ×2 (08:13→21:48)
[2018-12-16] MEDS: predniSONE 20 MG TAB PO SCH (08:13)
[2018-12-16] MEDS: MIDODRINE 5 MG TAB PO SCH ×3 (08:13→16:10)
[2018-12-16] MEDS: DOCUSATE SODIUM 100 MG CAP PO SCH ×2 (08:13→21:47)
[2018-12-16] MEDS: lamoTRIgine 100MG TAB PO SCH (08:14)
[2018-12-16] MEDS: ALPRAZolam 0.5 MG TAB PO SCH ×2 (08:14→21:48)
[2018-12-16] MEDS: ESCITALOPRAM OXALATE 10 MG TAB (LEXAPRO) PO SCH (08:14)
[2018-12-16] MEDS: busPIRone 5 MG TAB PO SCH ×3 (08:14→21:48)
[2018-12-16] MEDS: FERROUS SULFATE 325MG TAB PO SCH (08:14)
[2018-12-16] MEDS: NYSTATIN 100,000 UNITS/GM TOPICAL PWD 15 GM TOP SCH ×2 (08:15→21:52)
[2018-12-16 12:00] VITALS: BP 126/69
[2018-12-16] MEDS: ALBUTEROL SULFATE 2.5 MG/0.5 ML INH NEB SOLN NEB PRN ×3 (12:00→23:20)
[2018-12-16] MEDS ORDERED: DEXTROSE 50% 50 ML SYRINGE IV PRN (12:30)
[2018-12-16] MEDS ORDERED: GLUCAGON FOR INJ 1 MG VIAL (J1610) SC PRN (12:30)
[2018-12-16] MEDS ORDERED: GLUCOSE 4 GM CHEW TABLET PO PRN (12:30)
[2018-12-16] MEDS: D5W/0.45% SODIUM CHLORIDE 1,000 ML IV SCH (12:32)
--- NOTE | 2018-12-16 13:04 | IPNPDOC ---
Date Seen The patient was seen on 12/16/18. Progress Note SUBJECTIVE: Due to dysphagia to solids, pt has been kept npo with gentle hydration due to history of diastolic chf. no c/o sob, chest pain,pressure, tightness, or lightheadedness. Less restlesslegs syndrome overnight. s/p 2units rbc transfusion due to hgb<7 from right knee laceration with acute blood loss with increased to Hgb 9. aspirin and AC held due to blood loss. right leg has increased hematoma but no signs of compartment syndrome. ECHO reviewed. OBJECTIVE: Physical Examination VITALS: PLS SEE BELOW General Exam: Positive: Alert, Cooperative, answering questions appropriately. Eye Exam: Positive: PERRLA, Conjunctiva & lids normal, EOMI; Negative: Sclera icteric ENT Exam: Positive: Mucous membr. moist/pink, Pharynx Normal, Tongue Midline, Nares Patent, Other ENT (broising on the bridge of the nose) Neck Exam: Positive: Supple; Negative: JVD, thyromegaly Chest Exam: Positive: Rhonchi, Wheezing (scattered heard on deep expiration), Diminished Heart Exam: Positive: Tachycardic, Regular Rhythm, Normal S1, Normal S2; Negative: Gallops, Murmurs, Rubs Telemetry: Positive: Sinus, Tachycardia Abdomen Exam: Positive: Normal bowel sounds, Soft; Negative: Tenderness, Hepatospenomegaly Extremity Exam: Positive: Tenderness (both knees), Swelling (both knees),laceration over the right knee with stitches, with hematoma extending along the lateral aspect of the right leg . dp, pt pulses noted, warm and pink in color. Neuro Exam: Positive: Normal Speech, Strength at 5/5 X4 ext, Normal Tone, Sensation Intact, Other (static tremor of left leg noted says RLS however may be parkinsons) Psych Exam: Positive: Anxiety, Memory Intact, Oriented x 3 ADMISSION LABORATORY DATA: 12/12/18 19:25: Anion Gap 2L, Glomerular Filtration Rate > 60.0, Blood Urea Nitrogen 11, Cre atinine 0.91, Sodium Level 136, Potassium Level 4.2, Chloride Level 95L, Carbon Dioxide Level 39H, Calcium Level 9.9, Total Creatine Kinase 27, Magnesium Level 2.0, Creatine Kinase MB 1.1, Creatine Kinase MB Relative Index 4.07H, Troponin I < 0.02, Thyroid Stimulating Hormone (TSH) 0.510 12/12/18 19:26: Immature Granulocyte % (Auto) 0.5, White Blood Count 5.9, Red Blood Count 4.21, Hemoglobin 11.9L, Hematocrit 40.0, Mean Corpuscular Volume 95.0, Mean Corpuscular Hemoglobin 28.3, Mean Corpuscular Hemoglobin Concent 29.8L, Red Cell Distribution Width 14.1, Platelet Count 224, Neutrophils (%) (Auto) 64.6, Lymphocytes (%) (Auto) 18.9L, Monocytes (%) (Auto) 10.1H, Eosinophils (%) (Auto) 5.6H, Basophils (%) (Auto) 0.3, Neutrophils # (Auto) 3.8, Lymphocytes # (Auto) 1.1L, Monocytes # (Auto) 0.6, Eosinophils # (Auto) 0.3, Basophils # (Auto) 0.0, Nucleated Red Blood Cells % (auto) 0.0, Activated Partial Thromboplast Time 36.1, Blood Gas Bicarbonate Standard 35.4, Venous Blood pH 7.342, Venous Blood Partial Pressure CO2 76.5H, Venous Blood Partial Pressure O2 105.6H, Venous Blood Total Carbon Dioxide 42.9H, Venous Blood HCO3 40.5H, Venous Blood Oxygen Saturation 98.1H, Venous Blood Base Excess 11.6H 12/12/18 19:35: Bedside Glucose (Misc Panel) 107 12/12/18 20:39: Lactic Acid Level 1.1 CBC/BMP Laboratory Tests 12/12/18 19:25 Calcium Level 9.9, Total Creatine Kinase 27 12/12/18 19:26 Red Blood Count 4.21, Mean Corpuscular Volume 95.0, Mean Corpuscular Hemoglobin 28.3, Mean Corpuscular Hemoglobin Concent 29.8 L, Red Cell Distribution Width 14.1, Neutrophils (%) (Auto) 64.6, Lymphocytes (%) (Auto) 18.9 L, Monocytes (%) (Auto) 10.1 H, Eosinophils (%) (Auto) 5.6 H, Basophils (%) (Auto) 0.3, Neutrophils # (Auto) 3.8, Lymphocytes # (Auto) 1.1 L, Monocytes # (Auto) 0.6, Eosinophils # (Auto) 0.3, Basophils # (Auto) 0.0 Microbiology Microbiology 12/12/18 Blood Culture, Received Pending 12/12/18 Blood Culture, Received Pending TODAY'S LABORATORY DATA, IMAGING STUDIES, MICROBIOLOGY: PLS SEE BELOW ASSESSMENT AND PLAN: 58 year old female with multiple medical problems including End Stage COPD with chronic respiratory failure with hypoxia and hypercarbic, orthostatic hypotension, Morbid obesity BMI 44.0, probably Sleep apnea needs formal testing, diastolic CHF was in her usual state of health. This evening around 6 pm she had to go to the bathroom urgently so tigre up from her seat and immediately started rushing to the bathroom with her walker she felt a blackness coming over her eyes and she passed out and fell forward over her walker on her face and knees. After hitting the floor she immediately gained consciousness and pressed her Life alert. On presentation to the ED she had a deep laceration on the right knee which was stitched ( 14 stitches) and both the knees were badly bruised and swollen. She also had some abrasion and bruising on her face and nose. On my interview she complained of severe bilateral knee pain throbbing in nature , 10/10 in intensity located on both the knees with no radiation. She also says that her whole body is feeling sore. She is being admitted for syncope and collapse. Syncope and collapse recurrent probably due to orthostatic hypotension, Has resting tachycardia. will increase midodrine dosage, Has sinus tachycardia even when she is sleeping today. Could have an autonomic syndrome also ECHO reviewed monitor under telemetry for any other cardiac causes. CT head negative. Last Echo was in 2018 which did not have any etiology for syncope. Dysphagia to solids Patient choked on her dinner Sunday night and had a chunk of food bolus retrieved. CXR no pneumonitis. CT Neck: no foreign object. pt has been kept npo and on ivfluids since. pt denies any dysphagia to liquids and able to take her meds. afebrile overnight. Pt says she has no chest pain, pressure,tightness, lightheadedness, diaphoresis. no cough or worsening sob. npo with gentle hydration in light of h/o diastolic chf ugi series not optimized to have an EGD at this time. Abnormal Telemetry/ Torsades -electrolytes optimized, supportive care with oxygen -checked serial card ontiveros, reviewed echo, and continued tele monitoring -blood pressure is maintained. right knee laceration with significant blood loss due to ASA and xarelto stitches in place on the right pain control with percocet Acute blood loss due to right knee laceration while on ASA and xarelto -ASA and xarelto held -stitches by ER -ortho consulted recommended elevation on two pillows -Due to significant anemia, 2 units rbc transfusion 12/15/18 Chronic hypercapnic and Hypoxic respiratory failure seems to be at baseline compensated ABG oxygen supplementation nebs, inhalers as home Saw the technician biological health this week. Has some wheezing today. End Stage COPD last FEV1 in 2012 was 24% with poor effort. albuterol nebs, symbicort in place of breo, prednisone follows with dr Tabor in [place]. sees him every six months. Bronchiectasis stable. Diastolic CHF, stable. Weight seems to be at baseline due to npo status, gentle hydration. monitor for decompesnation Dyslipidemia continue home meds Chronic back pain/chronic neck pain. Probable obstructive sleep apnea oupt fu w her technician biological health for sleep study saw technician biological health on 12/12/18 Restless Legs Syndrome ropinirole H/o DVT and PE on Xarelto at home -held due to acute blood loss from right knee laceration on 12/13/18 -no DVT on repeat ultrasound of the lower extremities -ct chest w iv contrast could not be done on 12/13 due to allergy to contrast -resumed xarelto 12/14 since right knee stopped bleeding -held xarelto 12/15 due to severe anemia and extension of right knee hematoma to right leg. Iron deficiency anemia chronic Orthostatic hypotension on midodrine Gastroesophageal reflux disease. chronic Anxiety. chronic Diastolic CHF with preserved EF strict i/o appears Euvolemic at this time recheck CXR Pulmonary hypertension. complicating care Obesity BMI 44.0 complicating care Plan / VTE VTE Prophylaxis Ordered?: Yes VS, I&O, 24H, Fishbone Vital Signs/I&O Vital Signs Date Time Temp Pulse Resp B/P (MAP) Pulse Ox O2 Delivery O2 Flow Rate FiO2 12/16/18 05:54 20 12/16/18 04:45 97.4 88 148/75 (99) 99 2.0 12/14/18 20:00 Nasal Cannula I&O- Last 24 Hours up to 6 AM 12/16/18 06:00 Intake Total 120 ml Output Total 1300 ml Balance -1180 ml Laboratory Data 24H LABS Laboratory Tests 2 12/15/18 07:22: Nucleated Red Blood Cells % (auto) 0.0, Erythrocyte Sedimentation Rate 68H, Anion Gap 1L, Glomerular Filtration Rate 53.9, Blood Urea Nitrogen 23H, Creatinine 1.10, Sodium Level 139, Potassium Level 4.8, Chloride Level 104, Carbon Dioxide Level 34H, Calcium Level 7.9L, Total Creatine Kinase 26, Creatine Kinase MB 2.1, Creatine Kinase MB Relative Index 8.08H, Troponin I 0.02, C-Reac tive Protein, Quantitative 3.67H, IK-Ujy-[id number]-Type Natriuretic Peptide 1025H, Procalcitonin 0.08 CBC/BMP Laboratory Tests 12/15/18 07:22 Red Blood Count 2.36 L, Mean Corpuscular Volume 94.5, Mean Corpuscular Hemoglobin 28.4, Mean Corpuscular Hemoglobin Concent 30.0 L, Red Cell Dis tribution Width 14.5, Calcium Level 7.9 L, Total Creatine Kinase 26 12/15/18 09:01 12/15/18 16:21 Microbiology Microbiology 12/14/18 Blood Culture - Preliminary, Resulted No growth after 24 hours . All specim... 12/12/18 Blood Culture - Preliminary, Resulted 12/12/18 Blood Culture - Preliminary, Resulted No Growth after 72 hours. All specime... 12/14/18 Urine Culture - Final, Complete PORTIA QUIROZ MD Dec 16, 2018 06:14
[2018-12-16 13:11] LABS: HEMATOCRIT 30.7 % (36.0-47.0); HEMOGLOBIN 9.4 g/dl (12.0-15.5); MEAN CORPUSCULAR HEMOGLOBIN 29.8 pg (27.0-33.0); MEAN CORPUSCULAR HGB CONC 30.6 g/dl (32.0-36.5); MEAN CORPUSCULAR VOLUME 97.5 fl (80.0-96.0); PLATELET COUNT, AUTOMATED 289 10^3/uL (150-450); RED BLOOD COUNT 3.15 10^6/uL (4.00-5.40)
[2018-12-16 13:48] LABS: BLOOD UREA NITROGEN 17 MG/DL (7-18); CALCIUM LEVEL 8.4 MG/DL (8.8-10.2); CARBON DIOXIDE LEVEL 31 MEQ/L (21-32); CHLORIDE LEVEL 104 MEQ/L (98-107); CK-MB VALUE MASS 2.5 NG/ML (<3.6); CPK CREATINE PHOSPHOKINASE 37 U/L (26-192); GLOMERULAR FILTRATION RATE > 60.0 (>45); GLUCOSE, FASTING 88 MG/DL (70-100); MB/CK RELATIVE INDEX 6.76 (< OR =4); POTASSIUM SERUM 4.8 MEQ/L (3.5-5.1); SODIUM LEVEL 140 MEQ/L (136-145); TROPONIN I < 0.02 NG/ML (< 0.10)
--- NOTE | 2018-12-16 14:15 | NUR ---
Recommend pureed diet, thin liquids, medications in puree assist, upright & OOB as tolerated for meals, oral care 3x/day. Recommend GI consult for endoscopy to r/o upper esophageal abnormalities. Will f/u dysphagia tx pending results of this assessment. Compensatory strategies: small bite/sip, multiple swallows per bolus, effortful swallows, liquid wash, rest break btwn bites. Addendum: 12/16/[address] [facility] Amended: Links added.
[2018-12-16 16:00] VITALS: BP 133/80
[2018-12-16] MEDS: RIVAROXABAN 10 MG TAB (XARELTO) PO SCH (18:18)
[2018-12-16 20:00] VITALS: BP 128/76
[2018-12-16] MEDS ORDERED: rOPINIRole 1MG TAB PO ONE (20:00)
[2018-12-16] MEDS: SIMVASTATIN 20 MG TAB PO SCH (21:47)
[2018-12-16] MEDS: SENNA 8.6 MG TAB (SENOKOT) PO SCH (21:47)
[2018-12-16] MEDS: rOPINIRole 2MG TAB PO SCH (21:48)
[2018-12-17] VITALS (7 sets, daily range): BP systolic 118–141; BP diastolic 59–78
[2018-12-17] MEDS: PERCOCET 5MG/325MG TAB PO PRN ×4 (01:21→20:43)
[2018-12-17] MEDS: SLF 3 ML SYR IV SCH ×4 (01:26→20:44)
[2018-12-17] MEDS: D5W/0.45% SODIUM CHLORIDE 1,000 ML IV SCH (05:11)
[2018-12-17 05:57] LABS: HEMATOCRIT 32.4 % (36.0-47.0); HEMOGLOBIN 9.7 g/dl (12.0-15.5); MEAN CORPUSCULAR HEMOGLOBIN 29.5 pg (27.0-33.0); MEAN CORPUSCULAR HGB CONC 29.9 g/dl (32.0-36.5); MEAN CORPUSCULAR VOLUME 98.5 fl (80.0-96.0); PLATELET COUNT, AUTOMATED 314 10^3/uL (150-450); RED BLOOD COUNT 3.29 10^6/uL (4.00-5.40); WHITE BLOOD COUNT 5.4 10^3/uL (4.0-10.0)
[2018-12-17 06:26] LABS: BLOOD UREA NITROGEN 11 MG/DL (7-18); CREATININE FOR GFR 0.88 MG/DL (0.55-1.30); GLUCOSE, FASTING 75 MG/DL (70-100)
[2018-12-17 06:27] LABS: CALCIUM LEVEL 8.9 MG/DL (8.8-10.2); CARBON DIOXIDE LEVEL 34 MEQ/L (21-32); CHLORIDE LEVEL 103 MEQ/L (98-107); GLOMERULAR FILTRATION RATE > 60.0 (>45); POTASSIUM SERUM 4.1 MEQ/L (3.5-5.1); SODIUM LEVEL 141 MEQ/L (136-145)
[2018-12-17] MEDS: MIDODRINE 5 MG TAB PO SCH ×3 (08:02→17:18)
[2018-12-17] MEDS: lamoTRIgine 100MG TAB PO SCH (08:02)
[2018-12-17] MEDS: FERROUS SULFATE 325MG TAB PO SCH (08:02)
[2018-12-17] MEDS: predniSONE 20 MG TAB PO SCH (08:02)
[2018-12-17] MEDS: busPIRone 5 MG TAB PO SCH ×3 (08:02→20:44)
[2018-12-17] MEDS: VITAMIN D 1,000 INTERNATIONAL UNITS TABLET PO SCH (08:02)
[2018-12-17] MEDS: ALPRAZolam 0.5 MG TAB PO SCH ×2 (08:02→20:44)
[2018-12-17] MEDS: ESCITALOPRAM OXALATE 10 MG TAB (LEXAPRO) PO SCH (08:03)
[2018-12-17] MEDS: OMEPRAZOLE 20 MG CAP PO SCH ×2 (08:03→20:44)
[2018-12-17] MEDS: DOCUSATE SODIUM 100 MG CAP PO SCH ×2 (08:03→20:43)
[2018-12-17] MEDS: FOLIC ACID 1 MG TAB PO SCH (08:03)
[2018-12-17] MEDS: NYSTATIN 100,000 UNITS/GM TOPICAL PWD 15 GM TOP SCH ×2 (08:04→20:42)
[2018-12-17] MEDS: SYMBICORT 160/4.5MCG INHALER 6GM INH SCH ×2 (08:31→19:47)
[2018-12-17] MEDS: ALBUTEROL SULFATE 2.5 MG/0.5 ML INH NEB SOLN NEB PRN ×5 (08:36→22:32)
[2018-12-17] MEDS ORDERED: E-Z-GAS II EFFERVESCENT PACKET (SODIUM BICARB./CITRIC ACID/SIMETHICONE) As Ordered ONE (13:31)
[2018-12-17] MEDS ORDERED: E-Z-HD 98% w/w 340GM SUSP BTL As Ordered ONE (13:31)
[2018-12-17] MEDS ORDERED: E-Z-PAQUE 96% w/w SUSP 176GM BTL As Ordered ONE (13:31)
--- NOTE | 2018-12-17 15:41 | NUR ---
Recommend MBSS cookie swallow d/t pt c/o intermittent globus sensation Addendum: 12/17/[address] [facility] Amended: Links added.
[2018-12-17] MEDS ORDERED: KETOROLAC 30 MG/ML VIAL (J1885) IV ONE (16:45)
[2018-12-17] MEDS ORDERED: SLF 3 ML SYR IV PRN (17:00)
[2018-12-17] MEDS: RIVAROXABAN 10 MG TAB (XARELTO) PO SCH (17:18)
--- NOTE | 2018-12-17 20:26 | IPNPDOC ---
Date Seen The patient was seen on 12/17/18. Progress Note SUBJECTIVE: Patient reported feeling fine this morning but later complains of having severe joint pains at multiple places. Hematoma of R. knee appeared to be same or slightly better reportedly. Speech had evaluated and recommended Pureed diet. OBJECTIVE PHYSICAL EXAMINATION: VITAL SIGNS: Please see below. General: No acute distress, Alert Eyes: Normal sclera, EOMI, LISA HENT: Atraumatic, neck supple. Cardiovascular: Normal rate, normal rhythm. Pulmonary: Clear to auscultation b/l, no wheezing GI: Soft, nontender, nondistended Skin: Warm and dry. b/l knee hematoma. R. upper arm hematoma. Neuro: CN grossly intact. No focal deficits. Psych: oriented x 3 LABORATORY DATA, IMAGING STUDIES, MICROBIOLOGY: Please see below. ASSESSMENT AND PLAN: 1. Syncope - ,Recurrent, likely 2/2 orthostatic hypotension with significant debility. - Midodrine dose increased. c/w aggressive PT. - ECHO showed significant valvular pathology. Some features of diastolic dysfunction. 2. Dysphagia - Speech following. - Pureed diet in place. 3. Abnormal telemetry with torsades - Monitor electrolytes. - ECHO noted. c/w telemetry. 4. Anemia - 2/2 traumatic R. knee laceration and hematoma - Monitor H/H. - ASA and Xarelto hold at this time. follow H/H daily and consider resuming once stable. - s/p 2 units pRBC. 5. Chronic hypercapnic and hypoxic resp insufficiency - follows with pulmnology as outpatient 6. End stage COPD - c/w home meds, nebs. Follows Dr. Tabor in [place]. 7. HFpEF- stable. 8. RLS- c/w Ropinirole 9. Hx DVT and PE on home Xarelto - Hold for now until anemia resolve/stabelize. - Held 12/15 due to hematoma extension. DISPOSITION: . VS, I&O, 24H, Fishbone Vital Signs/I&O Vital Signs Date Time Temp Pulse Resp B/P (MAP) Pulse Ox O2 Delivery O2 Flow Rate FiO2 12/17/18 16:00 2.0 12/17/18 16:00 98.4 93 18 137/71 (93) 92 12/14/18 20:00 Nasal Cannula I&O- Last 24 Hours up to 6 AM 12/17/18 05:59 Intake Total 420 ml Output Total 550 ml Balance -130 ml Laboratory Data 24H LABS Laboratory Tests 2 12/17/18 01:25: Bedside Glucose (Misc Panel) 88 12/17/18 05:30: Nucleated Red Blood Cells % (auto) 0.0, Anion Gap 4L, Glomerular Filtration Rate > 60.0, Blood Urea Nitrogen 11, Creatinine 0.88, Sodium Level 141, Potassium Level 4.1, Chloride Level 103, Carbon Dioxide Level 34H, Calcium Level 8.9 12/17/18 11:55: Bedside Glucose (Misc Panel) 95 CBC/BMP Laboratory Tests 12/17/18 05:30 Red Blood Count 3.29 L, Mean Corpuscular Volume 98.5 H, Mean Corpuscular Hemoglobin 29.5, Mean Corpuscular Hemoglobin Concent 29.9 L, Red Cell D istribution Width 15.2 H, Calcium Level 8.9 Microbiology Microbiology 12/14/18 Blood Culture - Preliminary, Resulted No Growth after 72 hours. All specime... 12/12/18 Blood Culture - Final, Complete Staphylococcus Capitis 12/12/18 Blood Culture - Final, Complete NO GROWTH AFTER 5 DAYS 12/14/18 Urine Culture - Final, Complete LISANDRO LANDAVERDE MD Dec 17, 2018 20:26
[2018-12-17] MEDS: SIMVASTATIN 20 MG TAB PO SCH (20:43)
[2018-12-17] MEDS: SENNA 8.6 MG TAB (SENOKOT) PO SCH (20:43)
[2018-12-17] MEDS: rOPINIRole 2MG TAB PO SCH (20:44)
[2018-12-17] MEDS ORDERED: SLF 3 ML SYR IV SCH (22:00)
[2018-12-18] MEDS: PERCOCET 5MG/325MG TAB PO PRN ×4 (03:24→23:14)
[2018-12-18] MEDS: ALBUTEROL SULFATE 2.5 MG/0.5 ML INH NEB SOLN NEB PRN ×5 (03:37→20:46)
[2018-12-18 04:00] VITALS: BP 140/71
[2018-12-18] MEDS: SLF 3 ML SYR IV SCH ×3 (05:24→20:59)
[2018-12-18 06:15] LABS: HEMATOCRIT 32.7 % (36.0-47.0); HEMOGLOBIN 9.9 g/dl (12.0-15.5); MEAN CORPUSCULAR HEMOGLOBIN 29.9 pg (27.0-33.0); MEAN CORPUSCULAR HGB CONC 30.3 g/dl (32.0-36.5); MEAN CORPUSCULAR VOLUME 98.8 fl (80.0-96.0); PLATELET COUNT, AUTOMATED 365 10^3/uL (150-450); RED BLOOD COUNT 3.31 10^6/uL (4.00-5.40); WHITE BLOOD COUNT 6.4 10^3/uL (4.0-10.0)
[2018-12-18 06:25] LABS: BLOOD UREA NITROGEN 13 MG/DL (7-18); CALCIUM LEVEL 8.5 MG/DL (8.8-10.2); CARBON DIOXIDE LEVEL 32 MEQ/L (21-32); CHLORIDE LEVEL 104 MEQ/L (98-107); CREATININE FOR GFR 0.98 MG/DL (0.55-1.30); GLOMERULAR FILTRATION RATE > 60.0 (>45); GLUCOSE, FASTING 83 MG/DL (70-100); POTASSIUM SERUM 4.2 MEQ/L (3.5-5.1); SODIUM LEVEL 141 MEQ/L (136-145)
[2018-12-18 08:00] VITALS: BP 145/93
[2018-12-18] MEDS: SYMBICORT 160/4.5MCG INHALER 6GM INH SCH ×2 (08:00→20:00)
[2018-12-18] MEDS: MIDODRINE 5 MG TAB PO SCH ×3 (08:21→16:27)
[2018-12-18] MEDS: predniSONE 20 MG TAB PO SCH (08:21)
[2018-12-18] MEDS: DOCUSATE SODIUM 100 MG CAP PO SCH ×2 (08:21→20:58)
[2018-12-18] MEDS: ESCITALOPRAM OXALATE 10 MG TAB (LEXAPRO) PO SCH (08:21)
[2018-12-18] MEDS: FERROUS SULFATE 325MG TAB PO SCH (08:22)
[2018-12-18] MEDS: ALPRAZolam 0.5 MG TAB PO SCH ×2 (08:22→20:58)
[2018-12-18] MEDS: OMEPRAZOLE 20 MG CAP PO SCH ×2 (08:22→20:58)
[2018-12-18] MEDS: VITAMIN D 1,000 INTERNATIONAL UNITS TABLET PO SCH (08:22)
[2018-12-18] MEDS: busPIRone 5 MG TAB PO SCH ×3 (08:22→20:58)
[2018-12-18] MEDS: FOLIC ACID 1 MG TAB PO SCH (08:22)
[2018-12-18] MEDS: lamoTRIgine 100MG TAB PO SCH (08:23)
[2018-12-18] MEDS: NYSTATIN 100,000 UNITS/GM TOPICAL PWD 15 GM TOP SCH ×2 (08:24→20:59)
[2018-12-18 12:00] VITALS: BP 121/64
[2018-12-18] MEDS ORDERED: VARIBAR NECTAR 40% w/v 240ML SUSP BTL As Ordered ONE (13:23)
[2018-12-18] MEDS ORDERED: VARIBAR PUDDING 40% w/v 230ML TUBE As Ordered ONE (13:23)
[2018-12-18] MEDS ORDERED: E-Z-PAQUE 96% w/w SUSP 176GM BTL As Ordered ONE (13:23)
[2018-12-18] MEDS: ONDANSETRON 4MG/2ML VIAL (J2405) IV PRN ×2 (13:24→20:57)
[2018-12-18] MEDS ORDERED: SLF 3 ML SYR IV PRN (15:45)
[2018-12-18 16:00] VITALS: BP 120/73
--- NOTE | 2018-12-18 16:31 | NUR ---
Recommend mechanical soft solids (NDD) and thin liquids. Upright in chair as able. Please encourage extra sauces/gravies. Oral care 3x/day. Will f/u tolerance diet upgrade. Addendum: 12/18/18 at [address] [facility] Amended: Links added.
[2018-12-18] MEDS: RIVAROXABAN 10 MG TAB (XARELTO) PO SCH (18:38)
--- NOTE | 2018-12-18 19:22 | IPNPDOC ---
Date Seen The patient was seen on 12/18/18. Progress Note SUBJECTIVE: Patient denies any complaints today. No significant SOB. Still very weak however. Ongoing work with PT. OBJECTIVE PHYSICAL EXAMINATION: VITAL SIGNS: Please see below. General: No acute distress, Alert Eyes: Normal sclera, EOMI, LISA HENT: Atraumatic, neck supple. Cardiovascular: Normal rate, normal rhythm. Pulmonary: Clear to auscultation b/l, no wheezing GI: Soft, nontender, nondistended Skin: Warm and dry. b/l knee hematoma. R. upper arm hematoma. Neuro: CN grossly intact. No focal deficits. Psych: oriented x 3 LABORATORY DATA, IMAGING STUDIES, MICROBIOLOGY: Please see below. ASSESSMENT AND PLAN: 1. Syncope - ,Recurrent, likely 2/2 orthostatic hypotension with significant debility. - Midodrine dose increased. c/w aggressive PT. - ECHO showed no significant valvular pathology. Some features of diastolic dysfunction. 2. Dysphagia - Speech following. - mechanical soft diet. 3. Abnormal telemetry - Monitor electrolytes. - ECHO noted. c/w telemetry. 4. Anemia - 2/2 traumatic R. knee laceration and hematoma - Monitor H/H. - ASA and Xarelto hold at this time. follow H/H daily and consider resuming once stable. - s/p 2 units pRBC. 5. Chronic hypercapnic and hypoxic resp insufficiency - follows with pulmonology as outpatient - Taper steroids. 6. End stage COPD - c/w home meds, nebs. Follows Dr. Tabor in [place]. 7. HFpEF- stable. 8. RLS- c/w Ropinirole 9. Hx DVT and PE on home Xarelto - Hold for now until anemia resolve/stabelize. - Held 12/15 due to hematoma extension. VS, I&O, 24H, Fishbone Vital Signs/I&O Vital Signs Date Time Temp Pulse Resp B/P (MAP) Pulse Ox O2 Delivery O2 Flow Rate FiO2 12/18/18 16:59 18 93 2.0 12/18/18 16:00 97.5 105 120/73 (89) 12/14/18 20:00 Nasal Cannula I&O- Last 24 Hours up to 6 AM 12/18/18 06:00 Intake Total 705 ml Output Total 900 ml Balance -195 ml Laboratory Data 24H LABS Laboratory Tests 2 12/18/18 05:39: Nucleated Red Blood Cells % (auto) 0.0, Anion Gap 5L, Glomerular Filtration Rate > 60.0, Blood Urea Nitrogen 13, Creatinine 0.98, Sodium Level 141, Potassium Level 4.2, Chloride Level 104, Carbon Dioxide Level 32, Calcium Level 8.5L CBC/BMP Laboratory Tests 12/18/18 05:39 Red Blood Count 3.31 L, Mean Corpuscular Volume 98.8 H, Mean Corpuscular Hemoglobin 29.9, Mean Corpuscular Hemoglobin Concent 30.3 L, Red Cell Distribution Width 15.3 H, Calcium Level 8.5 L Microbiology Microbiology 12/14/18 Blood Culture - Preliminary, Resulted No Growth after 72 hours. All specime... 12/12/18 Blood Culture - Final, Complete Staphylococcus Capitis 12/12/18 Blood Culture - Final, Complete NO GROWTH AFTER 5 DAYS 12/14/18 Urine Culture - Final, Complete LISANDRO LANDAVERDE MD Dec 18, 2018 19:22
[2018-12-18 20:00] VITALS: BP 129/79
[2018-12-18] MEDS: SENNA 8.6 MG TAB (SENOKOT) PO SCH (20:58)
[2018-12-18] MEDS: SIMVASTATIN 20 MG TAB PO SCH (20:58)
[2018-12-18] MEDS: rOPINIRole 2MG TAB PO SCH (20:58)
[2018-12-18] MEDS ORDERED: SLF 3 ML SYR IV SCH (22:00)
[2018-12-18 23:59] VITALS: BP 138/76
[2018-12-19 04:00] VITALS: BP 121/68
[2018-12-19] MEDS: PERCOCET 5MG/325MG TAB PO PRN ×4 (04:57→23:57)
[2018-12-19] MEDS: ALBUTEROL SULFATE 2.5 MG/0.5 ML INH NEB SOLN NEB PRN ×4 (05:04→19:32)
[2018-12-19] MEDS: SLF 3 ML SYR IV SCH ×3 (05:34→22:01)
[2018-12-19 06:09] LABS: HEMATOCRIT 31.4 % (36.0-47.0); HEMOGLOBIN 9.3 g/dl (12.0-15.5); MEAN CORPUSCULAR HEMOGLOBIN 29.6 pg (27.0-33.0); MEAN CORPUSCULAR HGB CONC 29.6 g/dl (32.0-36.5); PLATELET COUNT, AUTOMATED 386 10^3/uL (150-450); RED BLOOD COUNT 3.14 10^6/uL (4.00-5.40)
[2018-12-19 06:22] LABS: BLOOD UREA NITROGEN 14 MG/DL (7-18); CALCIUM LEVEL 8.5 MG/DL (8.8-10.2); CARBON DIOXIDE LEVEL 35 MEQ/L (21-32); CHLORIDE LEVEL 105 MEQ/L (98-107); CREATININE FOR GFR 0.87 MG/DL (0.55-1.30); GLOMERULAR FILTRATION RATE > 60.0 (>45); GLUCOSE, FASTING 89 MG/DL (70-100); SODIUM LEVEL 145 MEQ/L (136-145)
[2018-12-19 08:00] VITALS: BP 138/69
[2018-12-19] MEDS: SYMBICORT 160/4.5MCG INHALER 6GM INH SCH ×2 (08:00→19:32)
[2018-12-19] MEDS ORDERED: predniSONE 5 MG TAB PO SCH (09:00)
[2018-12-19] MEDS: VITAMIN D 1,000 INTERNATIONAL UNITS TABLET PO SCH (09:04)
[2018-12-19] MEDS: OMEPRAZOLE 20 MG CAP PO SCH ×2 (09:04→20:00)
[2018-12-19] MEDS: MIDODRINE 5 MG TAB PO SCH ×3 (09:04→16:33)
[2018-12-19] MEDS: ALPRAZolam 0.5 MG TAB PO SCH ×2 (09:04→20:00)
[2018-12-19] MEDS: ESCITALOPRAM OXALATE 10 MG TAB (LEXAPRO) PO SCH (09:04)
[2018-12-19] MEDS: FERROUS SULFATE 325MG TAB PO SCH (09:04)
[2018-12-19] MEDS: ONDANSETRON 4MG/2ML VIAL (J2405) IV PRN ×2 (09:05→16:33)
[2018-12-19] MEDS: busPIRone 5 MG TAB PO SCH ×3 (09:05→20:00)
[2018-12-19] MEDS: lamoTRIgine 100MG TAB PO SCH (09:05)
[2018-12-19] MEDS: DOCUSATE SODIUM 100 MG CAP PO SCH ×2 (09:05→20:00)
[2018-12-19] MEDS: FOLIC ACID 1 MG TAB PO SCH (09:05)
[2018-12-19] MEDS: NYSTATIN 100,000 UNITS/GM TOPICAL PWD 15 GM TOP SCH ×2 (09:06→20:00)
--- NOTE | 2018-12-19 14:20 | IPNPDOC ---
Date Seen The patient was seen on 12/19/18. Progress Note SUBJECTIVE: Patient continues to just reports weakness and R. knee pain with walking but no other complaints. has been breathing well. OBJECTIVE PHYSICAL EXAMINATION: VITAL SIGNS: Please see below. General: No acute distress, Alert Eyes: Normal sclera, EOMI, LISA HENT: Atraumatic, neck supple. Cardiovascular: Normal rate, normal rhythm. Pulmonary: Clear to auscultation b/l, no wheezing GI: Soft, nontender, nondistended Skin: Warm and dry. b/l knee hematoma. R. upper arm hematoma. Neuro: CN grossly intact. No focal deficits. Psych: oriented x 3 LABORATORY DATA, IMAGING STUDIES, MICROBIOLOGY: Please see below. ASSESSMENT AND PLAN: 1. Syncope - ,Recurrent, likely 2/2 orthostatic hypotension with significant debility. - Midodrine dose increased. c/w aggressive PT. - ECHO showed no significant valvular pathology. Some features of diastolic dysfunction. 2. Dysphagia - Speech following. - mechanical soft diet. 3. Abnormal telemetry - Monitor electrolytes. - ECHO noted. c/w telemetry. 4. Anemia - 2/2 traumatic R. knee laceration and hematoma - Monitor H/H. - ASA and Xarelto hold at this time. follow H/H daily and consider resuming once stable. - s/p 2 units pRBC. 5. Chronic hypercapnic and hypoxic resp insufficiency - follows with pulmonology as outpatient - Taper steroids. 6. End stage COPD - c/w home meds, nebs. Follows Dr. Tabor in [place]. 7. HFpEF- stable. 8. RLS- c/w Ropinirole 9. Hx DVT and PE on home Xarelto VS, I&O, 24H, Fishbone Vital Signs/I&O Vital Signs Date Time Temp Pulse Resp B/P (MAP) Pulse Ox O2 Delivery O2 Flow Rate FiO2 12/19/18 11:43 20 95 2.0 12/19/18 08:00 97.1 104 138/69 (92) 12/14/18 20:00 Nasal Cannula I&O- Last 24 Hours up to 6 AM 12/19/18 05:59 Intake Total 1230 ml Output Total 650 ml Balance 580 ml Laboratory Data 24H LABS Laboratory Tests 2 12/19/18 05:32: Nucleated Red Blood Cells % (auto) 0.0, Anion Gap 5L, Glomerular Filtration Rate > 60.0, Blood Urea Nitrogen 14, Creatinine 0.87, Sodium Level 145, Potassium Level 4.0, Chloride Level 105, Carbon Dioxide Level 35H, Calcium Level 8.5L CBC/BMP Laboratory Tests 12/19/18 05:32 Red Blood Count 3.14 L, Mean Corpuscular Volume 100.0 H, Mean Corpuscular Hemoglobin 29.6, Mean Corpuscular Hemoglobin Concent 29.6 L, Red Cell Distribution Width 15.2 H, Calcium Level 8.5 L Microbiology Microbiology 12/14/18 Blood Culture - Final, Complete NO GROWTH AFTER 5 DAYS 12/12/18 Blood Culture - Final, Complete Staphylococcus Capitis 12/12/18 Blood Culture - Final, Complete NO GROWTH AFTER 5 DAYS 12/14/18 Urine Culture - Final, Complete LISANDRO LANDAVERDE MD Dec 19, 2018 14:20
[2018-12-19 16:00] VITALS: BP 110/63
[2018-12-19] MEDS: RIVAROXABAN 10 MG TAB (XARELTO) PO SCH (18:08)
[2018-12-19 20:00] VITALS: BP 111/87
[2018-12-19] MEDS: rOPINIRole 2MG TAB PO SCH (20:00)
[2018-12-19] MEDS: SENNA 8.6 MG TAB (SENOKOT) PO SCH (20:00)
[2018-12-19] MEDS: SIMVASTATIN 20 MG TAB PO SCH (20:00)
[2018-12-20] VITALS: BP 127/85
[2018-12-20] MEDS: IPRATROPIUM 0.5MG/ALBUTEROL 2.5MG INH SOL UD 3ML (DUONEB)(J7620) NEB PRN ×3 (00:26→23:34)
[2018-12-20 04:00] VITALS: BP 130/72
[2018-12-20 05:19] LABS: HEMATOCRIT 33.1 % (36.0-47.0); HEMOGLOBIN 9.5 g/dl (12.0-15.5); MEAN CORPUSCULAR HEMOGLOBIN 29.1 pg (27.0-33.0); MEAN CORPUSCULAR HGB CONC 28.7 g/dl (32.0-36.5); MEAN CORPUSCULAR VOLUME 101.2 fl (80.0-96.0); PLATELET COUNT, AUTOMATED 402 10^3/uL (150-450); RED BLOOD COUNT 3.27 10^6/uL (4.00-5.40); WHITE BLOOD COUNT 6.9 10^3/uL (4.0-10.0)
[2018-12-20] MEDS: SLF 3 ML SYR IV SCH ×3 (05:23→21:31)
[2018-12-20 05:43] LABS: BLOOD UREA NITROGEN 13 MG/DL (7-18); CARBON DIOXIDE LEVEL 36 MEQ/L (21-32); CHLORIDE LEVEL 103 MEQ/L (98-107); CREATININE FOR GFR 0.86 MG/DL (0.55-1.30); GLOMERULAR FILTRATION RATE > 60.0 (>45); GLUCOSE, FASTING 83 MG/DL (70-100); POTASSIUM SERUM 4.4 MEQ/L (3.5-5.1); SODIUM LEVEL 143 MEQ/L (136-145)
[2018-12-20] MEDS: PERCOCET 5MG/325MG TAB PO PRN ×3 (06:18→18:20)
[2018-12-20 08:00] VITALS: BP 119/67
[2018-12-20] MEDS: SYMBICORT 160/4.5MCG INHALER 6GM INH SCH ×2 (08:35→19:41)
[2018-12-20] MEDS: VITAMIN D 1,000 INTERNATIONAL UNITS TABLET PO SCH (08:39)
[2018-12-20] MEDS: MIDODRINE 5 MG TAB PO SCH ×3 (08:39→16:01)
[2018-12-20] MEDS: OMEPRAZOLE 20 MG CAP PO SCH ×2 (08:39→21:30)
[2018-12-20] MEDS: busPIRone 5 MG TAB PO SCH ×3 (08:39→21:30)
[2018-12-20] MEDS: ALPRAZolam 0.5 MG TAB PO SCH ×2 (08:39→21:30)
[2018-12-20] MEDS: ESCITALOPRAM OXALATE 10 MG TAB (LEXAPRO) PO SCH (08:39)
[2018-12-20] MEDS: DOCUSATE SODIUM 100 MG CAP PO SCH ×2 (08:40→21:30)
[2018-12-20] MEDS: FOLIC ACID 1 MG TAB PO SCH (08:40)
[2018-12-20] MEDS: predniSONE 10 MG TAB PO SCH (08:40)
[2018-12-20] MEDS: FERROUS SULFATE 325MG TAB PO SCH (08:40)
[2018-12-20] MEDS: NYSTATIN 100,000 UNITS/GM TOPICAL PWD 15 GM TOP SCH ×2 (08:40→21:30)
[2018-12-20] MEDS: lamoTRIgine 100MG TAB PO SCH (08:41)
[2018-12-20] MEDS: ONDANSETRON 4MG/2ML VIAL (J2405) IV PRN ×2 (08:51→18:24)
[2018-12-20 12:00] VITALS: BP 114/69
--- NOTE | 2018-12-20 14:35 | IPNPDOC ---
Date Seen The patient was seen on 12/20/18. Progress Note SUBJECTIVE: Patient continues to just reports weakness and R. knee pain with walking but no other complaints. has been breathing well. OBJECTIVE PHYSICAL EXAMINATION: VITAL SIGNS: Please see below. General: No acute distress, Alert Eyes: Normal sclera, EOMI, LISA HENT: Atraumatic, neck supple. Cardiovascular: Normal rate, normal rhythm. Pulmonary: Clear to auscultation b/l, no wheezing GI: Soft, nontender, nondistended Skin: Warm and dry. b/l knee hematoma. R. upper arm hematoma. Neuro: CN grossly intact. No focal deficits. Psych: oriented x 3 LABORATORY DATA, IMAGING STUDIES, MICROBIOLOGY: Please see below. ASSESSMENT AND PLAN: 1. Syncope - ,Recurrent, likely 2/2 orthostatic hypotension with significant debility. - Midodrine dose increased. c/w aggressive PT. - ECHO showed no significant valvular pathology. Some features of diastolic dysfunction. 2. Dysphagia - Speech following. - mechanical soft diet. 3. Abnormal telemetry - Monitor electrolytes. - ECHO noted. c/w telemetry. 4. Anemia - 2/2 traumatic R. knee laceration and hematoma. Has stabelized. - Monitor H/H. - s/p 2 units pRBC. 5. Chronic hypercapnic and hypoxic resp insufficiency - follows with pulmonology as outpatient - Taper steroids. 6. End stage COPD - c/w home meds, nebs. Follows Dr. Tabor in [place]. 7. HFpEF- stable. 8. RLS- c/w Ropinirole 9. Hx DVT and PE on home Xarelto VS, I&O, 24H, Fishbone Vital Signs/I&O Vital Signs Date Time Temp Pulse Resp B/P (MAP) Pulse Ox O2 Delivery O2 Flow Rate FiO2 12/20/18 12:39 16 12/20/18 12:09 2.0 12/20/18 12:00 97.0 102 114/69 (84) 96 12/20/18 08:35 Nasal Cannula I&O- Last 24 Hours up to 6 AM 12/20/18 06:00 Intake Total 1620 ml Output Total 850 ml Balance 770 ml Laboratory Data 24H LABS Laboratory Tests 2 12/20/18 04:53: Nucleated Red Blood Cells % (auto) 0.0, Anion Gap 4L, Glomerular Filtration Rate > 60.0, Blood Urea Nitrogen 13, Creatinine 0.86, Sodium Level 143, Potassium Level 4.4, Chloride Level 103, Carbon Dioxide Level 36H, Calcium Level 9.0 CBC/BMP Laboratory Tests 12/20/18 04:53 Red Blood Count 3.27 L, Mean Corpuscular Volume 101.2 H, Mean Corpuscular Hemoglobin 29.1, Mean Corpuscular Hemoglobin Concent 28.7 L, Red Cell Dist ribution Width 15.1 H, Calcium Level 9.0 Microbiology Microbiology 12/14/18 Blood Culture - Final, Complete NO GROWTH AFTER 5 DAYS 12/12/18 Blood Culture - Final, Complete Staphylococcus Capitis 12/12/18 Blood Culture - Final, Complete NO GROWTH AFTER 5 DAYS 12/14/18 Urine Culture - Final, Complete LISANDRO LANDAVERDE MD Dec 20, 2018 14:35
[2018-12-20 17:10] VITALS: BP 125/60
[2018-12-20] MEDS: RIVAROXABAN 10 MG TAB (XARELTO) PO SCH (18:19)
[2018-12-20] MEDS: SIMVASTATIN 20 MG TAB PO SCH (21:29)
[2018-12-20] MEDS: rOPINIRole 2MG TAB PO SCH (21:30)
[2018-12-20] MEDS: SENNA 8.6 MG TAB (SENOKOT) PO SCH (21:30)
[2018-12-20 22:00] VITALS: BP 106/59
[2018-12-21] MEDS: PERCOCET 5MG/325MG TAB PO PRN ×5 (00:44→18:54)
[2018-12-21] MEDS: IPRATROPIUM 0.5MG/ALBUTEROL 2.5MG INH SOL UD 3ML (DUONEB)(J7620) NEB PRN ×2 (04:21→12:33)
[2018-12-21] MEDS: SLF 3 ML SYR IV SCH ×3 (05:45→20:16)
[2018-12-21 06:00] VITALS: BP 127/66
[2018-12-21 06:11] LABS: HEMATOCRIT 32.4 % (36.0-47.0); HEMOGLOBIN 9.5 g/dl (12.0-15.5); MEAN CORPUSCULAR HEMOGLOBIN 29.4 pg (27.0-33.0); MEAN CORPUSCULAR HGB CONC 29.3 g/dl (32.0-36.5); MEAN CORPUSCULAR VOLUME 100.3 fl (80.0-96.0); PLATELET COUNT, AUTOMATED 398 10^3/uL (150-450); RED BLOOD COUNT 3.23 10^6/uL (4.00-5.40); WHITE BLOOD COUNT 7.2 10^3/uL (4.0-10.0)
[2018-12-21 06:33] LABS: BLOOD UREA NITROGEN 13 MG/DL (7-18); CALCIUM LEVEL 8.5 MG/DL (8.8-10.2); CARBON DIOXIDE LEVEL 38 MEQ/L (21-32); CHLORIDE LEVEL 102 MEQ/L (98-107); CREATININE FOR GFR 0.68 MG/DL (0.55-1.30); GLOMERULAR FILTRATION RATE > 60.0 (>45); GLUCOSE, FASTING 81 MG/DL (70-100); SODIUM LEVEL 143 MEQ/L (136-145)
[2018-12-21] MEDS: SYMBICORT 160/4.5MCG INHALER 6GM INH SCH ×2 (07:25→19:32)
[2018-12-21] MEDS: busPIRone 5 MG TAB PO SCH ×3 (10:03→20:15)
[2018-12-21] MEDS: MIDODRINE 5 MG TAB PO SCH ×3 (10:03→16:36)
[2018-12-21] MEDS: ONDANSETRON 4MG/2ML VIAL (J2405) IV PRN ×2 (10:03→20:22)
[2018-12-21] MEDS: ESCITALOPRAM OXALATE 10 MG TAB (LEXAPRO) PO SCH (10:04)
[2018-12-21] MEDS: FOLIC ACID 1 MG TAB PO SCH (10:05)
[2018-12-21] MEDS: DOCUSATE SODIUM 100 MG CAP PO SCH ×2 (10:05→20:15)
[2018-12-21] MEDS: ALPRAZolam 0.5 MG TAB PO SCH ×2 (10:05→20:15)
[2018-12-21] MEDS: FERROUS SULFATE 325MG TAB PO SCH (10:05)
[2018-12-21] MEDS: OMEPRAZOLE 20 MG CAP PO SCH ×2 (10:06→20:15)
[2018-12-21] MEDS: NYSTATIN 100,000 UNITS/GM TOPICAL PWD 15 GM TOP SCH ×2 (10:07→20:17)
[2018-12-21] MEDS: VITAMIN D 1,000 INTERNATIONAL UNITS TABLET PO SCH (10:17)
[2018-12-21] MEDS: predniSONE 10 MG TAB PO SCH (10:17)
--- NOTE | 2018-12-21 11:30 | IPNPDOC ---
Date Seen The patient was seen on 12/21/18. Progress Note SUBJECTIVE: Patient was found sitting up in a chair this morning. Knees still hurting but states that her mobilization is slightly improved. States that she does not want to go to Rehab and determined to continue to do PT and get better to go home by next week. Knee swelling appear to unchanged on the R. but slightly worse on the L. side. Will hold Xarelto. OBJECTIVE PHYSICAL EXAMINATION: VITAL SIGNS: Please see below. General: No acute distress, Alert Eyes: Normal sclera, EOMI, LISA HENT: Atraumatic, neck supple. Cardiovascular: Normal rate, normal rhythm. Pulmonary: Clear to auscultation b/l, no wheezing GI: Soft, nontender, nondistended Skin: Warm and dry. b/l knee hematoma. R. upper arm hematoma. Neuro: CN grossly intact. No focal deficits. Psych: oriented x 3 LABORATORY DATA, IMAGING STUDIES, MICROBIOLOGY: Please see below. ASSESSMENT AND PLAN: 1. Syncope - ,Recurrent, likely 2/2 orthostatic hypotension with significant debility. - Midodrine dose increased. c/w aggressive PT. - ECHO showed no significant valvular pathology. Some features of diastolic dysfunction. 2. Dysphagia - Speech following. - mechanical soft diet. 3. Abnormal telemetry - Monitor electrolytes. - ECHO noted. c/w telemetry. 4. Anemia - 2/2 traumatic R. knee laceration and hematoma. - Monitor H/H. - s/p 2 units pRBC. 5. Chronic hypercapnic and hypoxic resp insufficiency - follows with pulmonology as outpatient - Taper steroids. 6. End stage COPD - c/w home meds, nebs. Follows Dr. Tabor in [place]. 7. HFpEF- stable. 8. RLS- c/w Ropinirole 9. Hx DVT and PE on home Xarelto. Held at this time VS, I&O, 24H, Fishbone Vital Signs/I&O Vital Signs Date Time Temp Pulse Resp B/P (MAP) Pulse Ox O2 Delivery O2 Flow Rate FiO2 12/21/18 08:20 18 12/21/18 06:56 2.0 12/21/18 06:00 96.7 95 127/66 (86) 97 12/20/18 08:35 Nasal Cannula I&O- Last 24 Hours up to 6 AM 12/21/18 06:00 Intake Total 720 ml Balance 720 ml Laboratory Data 24H LABS Laboratory Tests 2 12/21/18 05:37: Nucleated Red Blood Cells % (auto) 0.0, Anion Gap 3L, Glomerular Filtration Rate > 60.0, Blood Urea Nitrogen 13, Creatinine 0.68, Sodium Level 143, Potassium Level 4.0, Chloride Level 102, Carbon Dioxide Level 38H, Calcium Level 8.5L CBC/BMP Laboratory Tests 12/21/18 05:37 Red Blood Count 3.23 L, Mean Corpuscular Volume 100.3 H, Mean Corpuscular Hemoglobin 29.4, Mean Corpuscular Hemoglobin Concent 29.3 L, Red Cell Distribution Width 14.9 H, Calcium Level 8.5 L Microbiology Microbiology 12/14/18 Blood Culture - Final, Complete NO GROWTH AFTER 5 DAYS 12/12/18 Blood Culture - Final, Complete Staphylococcus Capitis 12/12/18 Blood Culture - Final, Complete NO GROWTH AFTER 5 DAYS 12/14/18 Urine Culture - Final, Complete LISANDRO LANDAVERDE MD Dec 21, 2018 11:30
[2018-12-21] MEDS: lamoTRIgine 100MG TAB PO SCH (12:41)
[2018-12-21 14:00] VITALS: BP 115/57
[2018-12-21] MEDS: SENNA 8.6 MG TAB (SENOKOT) PO SCH (20:16)
[2018-12-21] MEDS: rOPINIRole 2MG TAB PO SCH (20:16)
[2018-12-21] MEDS: SIMVASTATIN 20 MG TAB PO SCH (20:16)
[2018-12-21 22:00] VITALS: BP 128/68
[2018-12-22] MEDS: PERCOCET 5MG/325MG TAB PO PRN ×4 (02:16→22:26)
[2018-12-22] MEDS: IPRATROPIUM 0.5MG/ALBUTEROL 2.5MG INH SOL UD 3ML (DUONEB)(J7620) NEB PRN ×3 (02:26→23:22)
[2018-12-22] MEDS: SLF 3 ML SYR IV SCH ×4 (05:51→20:24)
[2018-12-22 06:00] VITALS: BP 140/74
[2018-12-22] MEDS: SYMBICORT 160/4.5MCG INHALER 6GM INH SCH ×2 (08:20→19:37)
[2018-12-22] MEDS: busPIRone 5 MG TAB PO SCH ×3 (08:50→20:19)
[2018-12-22] MEDS: OMEPRAZOLE 20 MG CAP PO SCH ×2 (08:50→20:19)
[2018-12-22] MEDS: VITAMIN D 1,000 INTERNATIONAL UNITS TABLET PO SCH (08:50)
[2018-12-22] MEDS: MIDODRINE 5 MG TAB PO SCH ×3 (08:51→16:18)
[2018-12-22] MEDS: DOCUSATE SODIUM 100 MG CAP PO SCH ×2 (08:51→20:19)
[2018-12-22] MEDS: FOLIC ACID 1 MG TAB PO SCH (08:51)
[2018-12-22] MEDS: ALPRAZolam 0.5 MG TAB PO SCH ×2 (08:51→20:19)
[2018-12-22] MEDS: ESCITALOPRAM OXALATE 10 MG TAB (LEXAPRO) PO SCH (08:51)
[2018-12-22] MEDS: FERROUS SULFATE 325MG TAB PO SCH (08:51)
[2018-12-22] MEDS: predniSONE 10 MG TAB PO SCH (08:52)
[2018-12-22] MEDS: lamoTRIgine 100MG TAB PO SCH (08:52)
[2018-12-22] MEDS: NYSTATIN 100,000 UNITS/GM TOPICAL PWD 15 GM TOP SCH ×2 (09:00→20:20)
--- NOTE | 2018-12-22 13:09 | IPNPDOC ---
Date Seen The patient was seen on 12/22/18. Progress Note SUBJECTIVE: Patient states that she is feeling better and better. Determine to gain strength back so that she may go home in a few days, will not entertain the idea of Rehab. Otherwise denies any other complaints. b/l knee still appear swollen with hematoma. Xarelto on hold. OBJECTIVE PHYSICAL EXAMINATION: VITAL SIGNS: Please see below. General: No acute distress, Alert Eyes: Normal sclera, EOMI, LISA HENT: Atraumatic, neck supple. Cardiovascular: Normal rate, normal rhythm. Pulmonary: Clear to auscultation b/l, no wheezing GI: Soft, nontender, nondistended Skin: Warm and dry. b/l knee hematoma. R. upper arm hematoma. Neuro: CN grossly intact. No focal deficits. Psych: oriented x 3 LABORATORY DATA, IMAGING STUDIES, MICROBIOLOGY: Please see below. ASSESSMENT AND PLAN: 1. Syncope - ,Recurrent, likely 2/2 orthostatic hypotension with significant debility. - Midodrine dose increased. c/w aggressive PT. - ECHO showed no significant valvular pathology. Some features of diastolic dysfunction. 2. Dysphagia - Speech following. - mechanical soft diet. 3. Abnormal telemetry - Monitor electrolytes. - ECHO noted. c/w telemetry. 4. Anemia - 2/2 traumatic R. knee laceration and hematoma. - Monitor H/H. - s/p 2 units pRBC. 5. Chronic hypercapnic and hypoxic resp insufficiency - follows with pulmonology as outpatient - Taper steroids. 6. End stage COPD - c/w home meds, nebs. Follows Dr. Tabor in [place]. 7. HFpEF- stable. 8. RLS- c/w Ropinirole 9. Hx DVT and PE on home Xarelto. Held at this time/ 10. Fall with b/l knee trauma - L. knee from previous fall, R. knee on this admission s/p stitches placement. - Xarelto on hold. Slow/poor healing of knee. Trying to avoid extension of hematoma. VS, I&O, 24H, Fishbone Vital Signs/I&O Vital Signs Date Time Temp Pulse Resp B/P (MAP) Pulse Ox O2 Delivery O2 Flow Rate FiO2 12/22/18 09:50 18 2.0 12/22/18 08:21 Nasal Cannula 12/22/18 06:00 98.2 95 140/74 (73) 99 I&O- Last 24 Hours up to 6 AM 12/22/18 06:00 Intake Total 960 ml Output Total 350 ml Balance 610 ml Laboratory Data Microbiology Microbiology 12/14/18 Blood Culture - Final, Complete NO GROWTH AFTER 5 DAYS 12/12/18 Blood Culture - Final, Complete Staphylococcus Capitis 12/12/18 Blood Culture - Final, Complete NO GROWTH AFTER 5 DAYS 12/14/18 Urine Culture - Final, Complete LISANDRO LANDAVERDE MD Dec 22, 2018 13:09
[2018-12-22 14:00] VITALS: BP 128/59
[2018-12-22] MEDS ORDERED: FUROSEMIDE 40 MG/4 ML VIAL (J1940) IV ONE (14:00)
[2018-12-22] MEDS ORDERED: ONDANSETRON 4 MG ORAL DISINTEGRATING TAB (Q0162 PER 1MG) PO PRN ×2 (18:45)
[2018-12-22] MEDS: SENNA 8.6 MG TAB (SENOKOT) PO SCH (20:19)
[2018-12-22] MEDS: rOPINIRole 2MG TAB PO SCH (20:19)
[2018-12-22] MEDS: SIMVASTATIN 20 MG TAB PO SCH (20:19)
[2018-12-22 22:00] VITALS: BP 122/61
[2018-12-23] MEDS: SLF 3 ML SYR IV SCH ×3 (01:20→22:00)
[2018-12-23] MEDS: IPRATROPIUM 0.5MG/ALBUTEROL 2.5MG INH SOL UD 3ML (DUONEB)(J7620) NEB PRN ×3 (03:15→15:22)
[2018-12-23] MEDS: PERCOCET 5MG/325MG TAB PO PRN ×4 (04:42→23:30)
[2018-12-23 06:00] VITALS: BP 137/67
[2018-12-23 06:10] LABS: HEMATOCRIT 30.9 % (36.0-47.0); HEMOGLOBIN 9.2 g/dl (12.0-15.5); MEAN CORPUSCULAR HEMOGLOBIN 28.8 pg (27.0-33.0); MEAN CORPUSCULAR HGB CONC 29.8 g/dl (32.0-36.5); MEAN CORPUSCULAR VOLUME 96.9 fl (80.0-96.0); PLATELET COUNT, AUTOMATED 436 10^3/uL (150-450); RED BLOOD COUNT 3.19 10^6/uL (4.00-5.40); WHITE BLOOD COUNT 7.9 10^3/uL (4.0-10.0)
[2018-12-23 06:38] LABS: BLOOD UREA NITROGEN 18 MG/DL (7-18); CALCIUM LEVEL 8.7 MG/DL (8.8-10.2); CARBON DIOXIDE LEVEL 40 MEQ/L (21-32); CHLORIDE LEVEL 98 MEQ/L (98-107); CREATININE FOR GFR 0.92 MG/DL (0.55-1.30); GLOMERULAR FILTRATION RATE > 60.0 (>45); GLUCOSE, FASTING 86 MG/DL (70-100); SODIUM LEVEL 140 MEQ/L (136-145)
[2018-12-23] MEDS: SYMBICORT 160/4.5MCG INHALER 6GM INH SCH ×2 (07:23→20:51)
[2018-12-23] MEDS: FOLIC ACID 1 MG TAB PO SCH (07:55)
[2018-12-23] MEDS: MIDODRINE 5 MG TAB PO SCH ×3 (07:55→15:05)
[2018-12-23] MEDS: ESCITALOPRAM OXALATE 10 MG TAB (LEXAPRO) PO SCH (07:55)
[2018-12-23] MEDS: VITAMIN D 1,000 INTERNATIONAL UNITS TABLET PO SCH (07:55)
[2018-12-23] MEDS: lamoTRIgine 100MG TAB PO SCH (07:56)
[2018-12-23] MEDS: busPIRone 5 MG TAB PO SCH ×3 (07:56→20:07)
[2018-12-23] MEDS: DOCUSATE SODIUM 100 MG CAP PO SCH ×2 (07:56→20:07)
[2018-12-23] MEDS: OMEPRAZOLE 20 MG CAP PO SCH ×2 (07:56→20:07)
[2018-12-23] MEDS: FERROUS SULFATE 325MG TAB PO SCH (07:56)
[2018-12-23] MEDS: NYSTATIN 100,000 UNITS/GM TOPICAL PWD 15 GM TOP SCH ×2 (07:57→20:08)
[2018-12-23] MEDS: predniSONE 5 MG TAB PO SCH (07:58)
[2018-12-23] MEDS: ALPRAZolam 0.5 MG TAB PO SCH ×2 (08:40→20:07)
--- NOTE | 2018-12-23 10:32 | IPNPDOC ---
Date Seen The patient was seen on 12/23/18. Progress Note SUBJECTIVE: Patient denies any complaints, still hurts with walking but has been trying harder. Knee hematoma appear unchanged/swollen. Stitches had not been removed on R. knee yet, to assess and remove today. Xarelto on hold. OBJECTIVE PHYSICAL EXAMINATION: VITAL SIGNS: Please see below. General: No acute distress, Alert Eyes: Normal sclera, EOMI, LISA HENT: Atraumatic, neck supple. Cardiovascular: Normal rate, normal rhythm. Pulmonary: Clear to auscultation b/l, no wheezing GI: Soft, nontender, nondistended Skin: Warm and dry. b/l knee hematoma. R. upper arm hematoma. Neuro: CN grossly intact. No focal deficits. Psych: oriented x 3 LABORATORY DATA, IMAGING STUDIES, MICROBIOLOGY: Please see below. ASSESSMENT AND PLAN: 1. Syncope - ,Recurrent, likely 2/2 orthostatic hypotension with significant debility. - Midodrine dose increased. c/w aggressive PT. - ECHO showed no significant valvular pathology. Some features of diastolic dysfunction. 2. Dysphagia - Speech following. - mechanical soft diet. 3. Abnormal telemetry - Monitor electrolytes. - ECHO noted. c/w telemetry. 4. Anemia - 2/2 traumatic R. knee laceration and hematoma. - Monitor H/H. has been stable. - s/p 2 units pRBC. 5. Chronic hypercapnic and hypoxic resp insufficiency - follows with pulmonology as outpatient - Taper steroids. 6. End stage COPD - c/w home meds, nebs. Follows Dr. Tabor in [place]. 7. HFpEF- stable. 8. RLS- c/w Ropinirole 9. Hx DVT and PE on home Xarelto. Held at this time due to knee hematoma. 10. Fall with b/l knee trauma - L. knee from previous fall, R. knee leading to admission s/p stitches placement in ER. - Xarelto on hold. Slow/poor healing of knee. Trying to avoid extension of hematoma. VS, I&O, 24H, Fishbone Vital Signs/I&O Vital Signs Date Time Temp Pulse Resp B/P (MAP) Pulse Ox O2 Delivery O2 Flow Rate FiO2 12/23/18 06:00 97.2 96 18 137/67 (90) 98 2.0 12/22/18 08:21 Nasal Cannula I&O- Last 24 Hours up to 6 AM 12/23/18 06:00 Intake Total 1210 ml Output Total 250 ml Balance 960 ml Laboratory Data 24H LABS Laboratory Tests 2 12/23/18 05:28: Nucleated Red Blood Cells % (auto) 0.0, Anion Gap 2L, Glomerular Filtration Rate > 60.0, Blood Urea Nitrogen 18, Creatinine 0.92, Sodium Level 140, Potassium Level 4.0, Chloride Level 98, Carbon Dioxide Level 40H, Calcium Level 8.7L CBC/BMP Laboratory Tests 12/23/18 05:28 Red Blood Count 3.19 L, Mean Corpuscular Volume 96.9 H, Mean Corpuscular Hemoglobin 28.8, Mean Corpuscular Hemoglobin Concent 29.8 L, Red Cell Distribution Width 15.1 H, Calcium Level 8.7 L Microbiology Microbiology 12/14/18 Blood Culture - Final, Complete NO GROWTH AFTER 5 DAYS 12/14/18 Urine Culture - Final, Complete LISANDRO LANDAVERDE MD Dec 23, 2018 10:32
[2018-12-23 17:32] VITALS: BP 125/67
[2018-12-23] MEDS: SIMVASTATIN 20 MG TAB PO SCH (20:07)
[2018-12-23] MEDS: SENNA 8.6 MG TAB (SENOKOT) PO SCH (20:07)
[2018-12-23] MEDS: rOPINIRole 2MG TAB PO SCH (20:07)
[2018-12-23 22:00] VITALS: BP 120/62
[2018-12-24] MEDS: SLF 3 ML SYR IV SCH ×4 (05:09→22:00)
[2018-12-24] MEDS: PERCOCET 5MG/325MG TAB PO PRN ×5 (05:26→23:40)
[2018-12-24] MEDS: IPRATROPIUM 0.5MG/ALBUTEROL 2.5MG INH SOL UD 3ML (DUONEB)(J7620) NEB PRN ×6 (05:45→23:23)
[2018-12-24 06:00] VITALS: BP 130/65
[2018-12-24] MEDS: SYMBICORT 160/4.5MCG INHALER 6GM INH SCH ×2 (07:25→19:28)
[2018-12-24] MEDS: VITAMIN D 1,000 INTERNATIONAL UNITS TABLET PO SCH (08:12)
[2018-12-24] MEDS: ALPRAZolam 0.5 MG TAB PO SCH ×2 (08:12→20:32)
[2018-12-24] MEDS: MIDODRINE 5 MG TAB PO SCH ×3 (08:12→15:38)
[2018-12-24] MEDS: OMEPRAZOLE 20 MG CAP PO SCH ×2 (08:13→20:32)
[2018-12-24] MEDS: predniSONE 5 MG TAB PO SCH (08:13)
[2018-12-24] MEDS: busPIRone 5 MG TAB PO SCH ×3 (08:13→20:32)
[2018-12-24] MEDS: FOLIC ACID 1 MG TAB PO SCH (08:13)
[2018-12-24] MEDS: lamoTRIgine 100MG TAB PO SCH (08:13)
[2018-12-24] MEDS: ESCITALOPRAM OXALATE 10 MG TAB (LEXAPRO) PO SCH (08:13)
[2018-12-24] MEDS: NYSTATIN 100,000 UNITS/GM TOPICAL PWD 15 GM TOP SCH ×2 (08:14→20:31)
[2018-12-24] MEDS: DOCUSATE SODIUM 100 MG CAP PO SCH ×2 (08:14→20:32)
[2018-12-24] MEDS: FERROUS SULFATE 325MG TAB PO SCH (08:14)
[2018-12-24 14:00] VITALS: BP 126/76
--- NOTE | 2018-12-24 17:17 | IPNPDOC ---
Date Seen The patient was seen on 12/24/18. Progress Note SUBJECTIVE: Pt still c/o pain in the right knee with some oozing when 2 david were removed yesterday. She denies any sob, cough. She has been working with physical therapy with dc plans for . OBJECTIVE: Physical Examination VITALS: PLS SEE BELOW General Exam: Positive: Alert, Cooperative, answering questions appropriately. Eye Exam: Positive: PERRLA, Conjunctiva & lids normal, EOMI; Negative: Sclera icteric ENT Exam: Positive: Mucous membr. moist/pink, Pharynx Normal, Tongue Midline, Nares Patent, Other ENT (broising on the bridge of the nose) Neck Exam: Positive: Supple; Negative: JVD, thyromegaly Chest Exam: Positive: Rhonchi, Wheezing (scattered heard on deep expiration), Diminished Heart Exam: Positive: Tachycardic, Regular Rhythm, Normal S1, Normal S2; Negative: Gallops, Murmurs, Rubs Telemetry: Positive: Sinus, Tachycardia Abdomen Exam: Positive: Normal bowel sounds, Soft; Negative: Tenderness, Hepatospenomegaly Extremity Exam: Positive: Tenderness (both knees), Swelling (both knees),laceration over the right knee with stitches, with hematoma extending along the lateral aspect of the right leg . dp, pt pulses noted, warm and pink in color. Neuro Exam: Positive: Normal Speech, Strength at 5/5 X4 ext, Normal Tone, Sensation Intact, Other (static tremor of left leg noted says RLS however may be parkinsons) Psych Exam: Positive: Anxiety, Memory Intact, Oriented x 3 ADMISSION LABORATORY DATA: 12/12/18 19:25: Anion Gap 2L, Glomerular Filtration Rate > 60.0, Blood Urea Nitrogen 11, Creatinine 0.91, Sodium Level 136, Potassium Level 4.2, Chloride Level 95L, Carbon Dioxide Level 39H, Calcium Level 9.9, Total Creatine Kinase 27, Magnesium Level 2.0, Creatine Kinase MB 1.1, Creatine Kinase MB Relative Index 4.07H, Troponin I < 0.02, Thyroid Stimulating Hormone (TSH) 0.510 12/12/18 19:26: Immature Granulocyte % (Auto) 0.5, White Blood Count 5.9, Red Blood Count 4.21, Hemoglobin 11.9L, Hematocrit 40.0, Mean Corpuscular Volume 95.0, Mean C orpuscular Hemoglobin 28.3, Mean Corpuscular Hemoglobin Concent 29.8L, Red Cell Distribution Width 14.1, Platelet Count 224, Neutrophils (%) (Auto) 64.6, Lymphocytes (%) (Auto) 18.9L, Monocytes (%) (Auto) 10.1H, Eosinophils (%) (Auto) 5.6H, Basophils (%) (Auto) 0.3, Neutrophils # (Auto) 3.8, Lymphocytes # (Auto) 1.1L, Monocytes # (Auto) 0.6, Eosinophils # (Auto) 0.3, Basophils # (Auto) 0.0, Nucleated Red Blood Cells % (auto) 0.0, Activated Partial Thromboplast Time 36.1, Blood Gas Bicarbonate Standard 35.4, Venous Blood pH 7.342, Venous Blood Partial Pressure CO2 76.5H, Venous Blood Partial Pressure O2 105.6H, Venous Blood Total Carbon Dioxide 42.9H, Venous Blood HCO3 40.5H, Venous Blood Oxygen Saturation 98.1H, Venous Blood Base Excess 11.6H 12/12/18 19:35: Bedside Glucose (Misc Panel) 107 12/12/18 20:39: Lactic Acid Level 1.1 CBC/BMP Laboratory Tests 12/12/18 19:25 Calcium Level 9.9, Total Creatine Kinase 27 12/12/18 19:26 Red Blood Count 4.21, Mean Corpuscular Volume 95.0, Mean Corpuscular Hemoglobin 28.3, Mean Corpuscular Hemoglobin Concent 29.8 L, Red Cell Distribution Width 14 .1, Neutrophils (%) (Auto) 64.6, Lymphocytes (%) (Auto) 18.9 L, Monocytes (%) (Auto) 10.1 H, Eosinophils (%) (Auto) 5.6 H, Basophils (%) (Auto) 0.3, Neutrophils # (Auto) 3.8, Lymphocytes # (Auto) 1.1 L, Monocytes # (Auto) 0.6, Eosinophils # (Auto) 0.3, Basophils # (Auto) 0.0 Microbiology Microbiology 12/12/18 Blood Culture, Received Pending 12/12/18 Blood Culture, Received Pending TODAY'S LABORATORY DATA, IMAGING STUDIES, MICROBIOLOGY: PLS SEE BELOW ASSESSMENT AND PLAN: 58 year old female with multiple medical problems including End Stage COPD with chronic respiratory failure with hypoxia and hypercarbic, orthostatic hypotension, Morbid obesity BMI 44.0, probably Sleep apnea needs formal testing, diastolic CHF was in her usual state of health. This evening around 6 pm she had to go to the bathroom urgently so tigre up from her seat and immediately started rushing to the bathroom with her walker she felt a blackness coming over her eyes and she passed out and fell forward over her walker on her face and knees. After hitting the floor she immediately gained consciousness and pressed her Life alert. On presentation to the ED she had a deep laceration on the right k nee which was stitched ( 14 stitches) and both the knees were badly bruised and swollen. She also had some abrasion and bruising on her face and nose. On my interview she complained of severe bilateral knee pain throbbing in nature , 10/10 in intensity located on both the knees with no radiation. She also says that her whole body is feeling sore. She is being admitted for syncope and collapse. Syncope and collapse due to orthostatic hypotension, Has resting tachycardia. increased midodrine dosage ECHO reviewed CT head negative. Last Echo was in 2018 which did not have any etiology for syncope. Dysphagia to solids Patient choked on her dinner and had a chunk of food bolus retrieved. CXR no pneumonitis. CT Neck: no foreign object. pt has been kept npo and on ivfluids since. pt denies any dysphagia to liquids and able to take her meds. afebrile overnight. Pt says she has no chest pain, pressure,tightness, lightheadedness, diaphoresis. no cough or worsening sob. Abnormal Telemetry/ [place] -electrolytes optimized, supportive care with oxygen -checked serial card ontiveros, reviewed echo -blood pressure is maintained. right knee laceration with significant blood loss due to ASA and xarelto stitches in place on the right pain control with percocet Acute blood loss due to right knee laceration while on ASA and xarelto -ASA and xarelto held initially -stitches by ER -ortho consulted recommended elevation on two pillows -Due to significant anemia, 2 units rbc transfusion 12/15/18 Chronic hypercapnic and Hypoxic respiratory failure seems to be at baseline compensated ABG oxygen supplementation nebs, inhalers as home Saw the diesel dinkey engineer this week. Has some wheezing today. End Stage COPD last FEV1 in 2012 was 24% with poor effort. albuterol nebs, symbicort in place of breo, prednisone follows with dr Tabor in [place]. sees him every six months. Bronchiectasis stable. Diastolic CHF, stable. Weight seems to be at baseline Dyslipidemia continue home meds Chronic back pain/chronic neck pain. Probable obstructive sleep apnea oupt fu w her diesel dinkey engineer for sleep study saw diesel dinkey engineer on 12/12/18 Restless Legs Syndrome ropinirole H/o DVT and PE on Xarelto at home -held xarelto due to acute blood loss from right knee laceration on 12/13/18 -no DVT on repeat ultrasound of the lower extremities -ct chest w iv contrast could not be done on 12/13 due to allergy to contrast -resumed xarelto 12/14 since right knee stopped bleeding -held xarelto 12/15 due to severe anemia and extension of right knee hematoma to right leg. Iron deficiency anemia chronic Orthostatic hypotension on midodrine Gastroesophageal reflux disease. chronic Anxiety. chronic Diastolic CHF with preserved EF strict i/o appears Euvolemic at this time recheck CXR Pulmonary hypertension. complicating care Obesity BMI 44.0 complicating care Plan / VTE VTE Prophylaxis Ordered?: Yes VS, I&O, 24H, Fishbone Vital Signs/I&O Vital Signs Date Time Temp Pulse Resp B/P (MAP) Pulse Ox O2 Delivery O2 Flow Rate FiO2 12/24/18 14:00 96.8 107 20 126/76 (93) 94 2.0 12/24/18 05:45 Nasal Cannula I&O- Last 24 Hours up to 6 AM 12/24/18 06:00 Intake Total 1060 ml Output Total 0 ml Balance 1060 ml Laboratory Data Microbiology Microbiology 12/14/18 Blood Culture - Final, Complete NO GROWTH AFTER 5 DAYS 12/14/18 Urine Culture - Final, Complete PORTIA QUIROZ MD Dec 24, 2018 17:17
--- NOTE | 2018-12-24 17:44 | REP ---
COOKIE SWALLOW The procedure was performed under the direct supervision of Dr. Cochran. The procedure was performed with Carla Puente from speech pathology present. 5 ml aliquots of thin, pudding, fruit, solid and soft food consistency barium was administered. There is no evidence of penetration or aspiration. The detailed report of this examination will be provided by speech pathology. 1.3 minutes of fluoroscopy time was utilized for this procedure. Reviewed by MANOLO Coffey 12/18/2018 04:59 P Electronically Signed by Mikhail Cochran MD 12/24/2018 05:35 P
[2018-12-24] MEDS: SIMVASTATIN 20 MG TAB PO SCH (20:32)
[2018-12-24] MEDS: SENNA 8.6 MG TAB (SENOKOT) PO SCH (20:32)
[2018-12-24 21:30] VITALS: O2SAT 95
[2018-12-24] MEDS: rOPINIRole 2MG TAB PO SCH (21:55)
[2018-12-24 22:00] VITALS: BP 108/71
[2018-12-25] MEDS: PERCOCET 5MG/325MG TAB PO PRN ×5 (00:42→18:52)
[2018-12-25] MEDS: IPRATROPIUM 0.5MG/ALBUTEROL 2.5MG INH SOL UD 3ML (DUONEB)(J7620) NEB PRN ×5 (03:47→23:16)
[2018-12-25] MEDS: SLF 3 ML SYR IV SCH ×4 (05:57→21:28)
[2018-12-25 06:00] VITALS: BP 110/60
[2018-12-25 06:21] LABS: HEMATOCRIT 31.4 % (36.0-47.0); MEAN CORPUSCULAR HEMOGLOBIN 28.4 pg (27.0-33.0); MEAN CORPUSCULAR HGB CONC 28.7 g/dl (32.0-36.5); MEAN CORPUSCULAR VOLUME 99.1 fl (80.0-96.0); PLATELET COUNT, AUTOMATED 389 10^3/uL (150-450); RED BLOOD COUNT 3.17 10^6/uL (4.00-5.40); WHITE BLOOD COUNT 8.1 10^3/uL (4.0-10.0)
[2018-12-25] MEDS: SYMBICORT 160/4.5MCG INHALER 6GM INH SCH ×2 (07:25→20:04)
[2018-12-25] MEDS: VITAMIN D 1,000 INTERNATIONAL UNITS TABLET PO SCH (09:50)
[2018-12-25] MEDS: MIDODRINE 5 MG TAB PO SCH ×3 (09:50→15:25)
[2018-12-25] MEDS: OMEPRAZOLE 20 MG CAP PO SCH ×2 (09:51→21:22)
[2018-12-25] MEDS: busPIRone 5 MG TAB PO SCH ×3 (09:51→21:24)
[2018-12-25] MEDS: ALPRAZolam 0.5 MG TAB PO SCH ×2 (09:51→21:22)
[2018-12-25] MEDS: lamoTRIgine 100MG TAB PO SCH (09:52)
[2018-12-25] MEDS: FOLIC ACID 1 MG TAB PO SCH (09:52)
[2018-12-25] MEDS: ESCITALOPRAM OXALATE 10 MG TAB (LEXAPRO) PO SCH (09:52)
[2018-12-25] MEDS: DOCUSATE SODIUM 100 MG CAP PO SCH ×2 (09:52→21:21)
[2018-12-25] MEDS: NYSTATIN 100,000 UNITS/GM TOPICAL PWD 15 GM TOP SCH ×2 (09:53→21:23)
[2018-12-25] MEDS: FERROUS SULFATE 325MG TAB PO SCH (09:57)
[2018-12-25 14:00] VITALS: BP 124/80
[2018-12-25 15:21] VITALS: BP 131/76
[2018-12-25] MEDS ORDERED: RIVAROXABAN 10 MG TAB (XARELTO) PO SCH (18:00)
--- NOTE | 2018-12-25 19:55 | IPNPDOC ---
Date Seen The patient was seen on 12/25/18. Progress Note SUBJECTIVE: still awaiting physical therapy clearance for discharge home. Pt is adamant about home, and not placement, although pt's niece who is the health care proxy states that she and the other caregiver are finding it more difficult to provide to 24/7care. She has not had any recurrent syncopal episodes and denies any lightheadedness or dizziness. Due to history of DVT/PE, anticoagulation will be re-started prior to planned discharge home tomorrow. Anticoagulation has been held due to right knee laceration due to a fall at home requiring rbc transfusion due to acute blood loss. She is hopeful for discharge on , but will need to monitor if recurrent blood loss overnight. OBJECTIVE: Physical Examination VITALS: PLS SEE BELOW General Exam: Positive: Alert, Cooperative, answering questions appropriately. Eye Exam: Positive: PERRLA, Conjunctiva & lids normal, EOMI; Negative: Sclera icteric ENT Exam: Positive: Mucous membr. moist/pink, Pharynx Normal, Tongue Midline, Nares Patent, Other ENT (broising on the bridge of the nose) Neck Exam: Positive: Supple; Negative: JVD, thyromegaly Chest Exam: Positive: clear but Diminished Heart Exam: Positive: Tachycardic, Regular Rhythm, Normal S1, Normal S2; Negative: Gallops, Murmurs, Rubs Telemetry: Positive: Sinus, Tachycardia Abdomen Exam: Positive: Normal bowel sounds, Soft; Negative: Tenderness, Hepatospenomegaly Extremity Exam: Positive: Tenderness (both knees), Swelling (both knees),laceration over the right knee with stitches, with hematoma extending along the lateral aspect of the right leg . dp, pt pulses noted, warm and pink in color. Neuro Exam: Positive: Normal Speech, Strength at 5/5 X4 ext, Normal Tone, Sensation Intact, Other (static tremor of left leg noted says RLS however may be parkinsons) Psych Exam: Positive: Anxiety, Memory Intact, Oriented x 3 ADMISSION LABORATORY DATA: 12/12/18 19:25: Anion Gap 2L, Glomerular Filtration Rate > 60.0, Blood Urea Nitrogen 11, Creatinine 0.91, Sodium Level 136, Potassium Level 4.2, Chloride Level 95L, Carbon Dioxide Level 39H, Calcium Level 9.9, Total Creatine Kinase 27, Magnesium Level 2.0, Creatine Kinase MB 1.1, Creatine Kinase MB Relative Index 4.07H, Troponin I < 0.02, Thyroid Stimulating Hormone (TSH) 0.510 12/12/18 19:26: Immature Granulocyte % (Auto) 0.5, White Blood Count 5.9, Red Blood Count 4.21, Hemoglobin 11.9L, Hematocrit 40.0, Mean Corpuscular Volume 95.0, Mean Corpuscular Hemoglobin 28.3, Mean Corpuscular Hemoglobin Concent 29.8L, Red Cell Distribution Width 14.1, Platelet Count 224, Neutrophils (%) (Auto) 64.6, Lymphocytes (%) (Auto) 18.9L, Monocytes (%) (Auto) 10.1H, Eosinophils (%) (Auto) 5.6H, Basophils (%) (Auto) 0.3, Neutrophils # (Auto) 3.8, Lymphocytes # (Auto) 1.1L, Monocytes # (Auto) 0.6, Eosinophils # (Auto) 0.3, Basophils # (Auto) 0.0, Nucleated Red Blood Cells % (auto) 0.0, Activated Partial Thromboplast Time 36.1, Blood Gas Bicarbonate Standard 35.4, Venous Blood pH 7.342, Venous Blood Partial Pressure CO2 76.5H, Venous Blood Partial Pressure O2 105.6H, Venous Blood Total Carbon Dioxide 42.9H, Venous Blood HCO3 40.5H, Venous Blood Oxygen Saturation 98.1H, Venous Blood Base Excess 11.6H 12/12/18 19:35: Bedside Glucose (Misc Panel) 107 12/12/18 20:39: Lactic Acid Level 1.1 CBC/BMP Laboratory Tests 12/12/18 19:25 Calcium Level 9.9, Total Creatine Kinase 27 12/12/18 19:26 Red Blood Count 4.21, Mean Corpuscular Volume 95.0, Mean Corpuscular Hemoglobin 28.3, Mean Corpuscular Hemoglobin Concent 29.8 L, Red Cell Distribution Width 14.1, Neutrophils (%) (Auto) 64.6, Lymphocytes (%) (Auto) 18.9 L, Monocytes (%) (Auto) 10.1 H, Eosinophils (%) (Auto) 5.6 H, Basophils (%) (Auto) 0.3, Neut rophils # (Auto) 3.8, Lymphocytes # (Auto) 1.1 L, Monocytes # (Auto) 0.6, Eosinophils # (Auto) 0.3, Basophils # (Auto) 0.0 Microbiology Microbiology 12/12/18 Blood Culture, Received Pending 12/12/18 Blood Culture, Received Pending TODAY'S LABORATORY DATA, IMAGING STUDIES, MICROBIOLOGY: PLS SEE BELOW ASSESSMENT AND PLAN: 58 year old female with multiple medical problems including End Stage COPD with chronic respiratory failure with hypoxia and hypercarbic, orthostatic hypoten gopi, Morbid obesity BMI 44.0, probably Sleep apnea needs formal testing, diastolic CHF was in her usual state of health. This evening around 6 pm she had to go to the bathroom urgently so tigre up from her seat and immediately started rushing to the bathroom with her walker she felt a blackness coming over her eyes and she passed out and fell forward over her walker on her face and knees. After hitting the floor she immediately gained consciousness and pressed her Life alert. On presentation to the ED she had a deep laceration on the right knee which was stitched ( 14 stitches) and both the knees were badly bruised and swollen. She also had some abrasion and bruising on her face and nose. On my interview she complained of severe bilateral knee pain throbbing in nature , 10/10 in intensity located on both the knees with no radiation. She also says that her whole body is feeling sore. She is being admitted for syncope and collapse. Syncope and collapse due to orthostatic hypotension, Has resting tachycardia. increased midodrine dosage, and has been stable since. ECHO reviewed CT head negative. Last Echo was in 2018 which did not have any etiology for syncope. Dysphagia to solids Patient choked on her dinner and had a chunk of food bolus retrieved. CXR no pneumonitis. CT Neck: no foreign object. pt has been kept npo and on ivfluids since. pt denies any dysphagia to liquids and able to take her meds. no chest pain, pressure,tightness, lightheadedness, diaphoresis. no cough or worsening sob. Abnormal Telemetry/ Torsades -electrolytes optimized, supportive care with oxygen -checked serial card ontiveros, reviewed echo -blood pressure is maintained. right knee laceration with significant blood loss due to ASA and xarelto on admission stitches in place on the right pain control with percocet Acute blood loss due to right knee laceration while on ASA and xarelto -ASA and xarelto held initially -stitches by ER -ortho consulted recommended elevation on two pillows -Due to significant anemia, 2 units rbc transfusion 12/15/18 Chronic hypercapnic and Hypoxic respiratory failure seems to be at baseline compensated ABG oxygen supplementation nebs, inhalers as home Saw the patternmaker plaster and plastic prior to admission End Stage COPD last FEV1 in 2012 was 24% with poor effort. albuterol nebs, symbicort in place of breo, prednisone follows with dr Tabor in [place]. sees him every six months. Bronchiectasis stable. Diastolic CHF, stable. Weight seems to be at baseline Dyslipidemia continue home meds Chronic back pain/chronic neck pain. 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 -resumed xarelto 12/25/18 prior to hospital discharge. Iron deficiency anemia chronic Orthostatic hypotension on midodrine resulted in fall with right knee laceration as reason for admission no recurrence since admission holding parameters for midodrine Gastroesophageal reflux disease. chronic Anxiety. chronic Diastolic CHF with preserved EF strict i/o Pulmonary hypertension. complicating care Obesity BMI 44.0 complicating care Plan / VTE VTE Prophylaxis Ordered?: Yes disposition: awaiting physical therapy clearance for discharge home. hopefully on 12/16/18. VS, I&O, 24H, Fishbone Vital Signs/I&O Vital Signs Date Time Temp Pulse Resp B/P (MAP) Pulse Ox O2 Delivery O2 Flow Rate FiO2 12/25/18 09:30 2.0 12/25/18 07:11 18 12/25/18 06:00 97.7 102 110/60 (77) 97 12/24/18 21:30 Nasal Cannula I&O- Last 24 Hours up to 6 AM 12/25/18 06:00 Intake Total 1410 ml Balance 1410 ml Laboratory Data 24H LABS Laboratory Tests 2 12/25/18 05:27: Nucleated Red Blood Cells % (auto) 0.0 CBC/BMP Laboratory Tests 12/25/18 05:27 Red Blood Count 3.17 L, Mean Corpuscular Volume 99.1 H, Mean Corpuscular Hemoglobin 28.4, Mean Corpuscular Hemoglobin Concent 28.7 L, Red Cell Distribution Width 15.3 H PORTIA QUIROZ MD Dec 25, 2018 12:34
[2018-12-25 20:10] VITALS: O2SAT 98
[2018-12-25] MEDS: rOPINIRole 2MG TAB PO SCH (21:21)
[2018-12-25] MEDS: SENNA 8.6 MG TAB (SENOKOT) PO SCH (21:21)
[2018-12-25] MEDS: SIMVASTATIN 20 MG TAB PO SCH (21:22)
[2018-12-25 22:00] VITALS: BP 127/88
[2018-12-26] MEDS: PERCOCET 5MG/325MG TAB PO PRN ×2 (01:58→08:08)
[2018-12-26] MEDS: IPRATROPIUM 0.5MG/ALBUTEROL 2.5MG INH SOL UD 3ML (DUONEB)(J7620) NEB PRN ×2 (02:59→07:33)
[2018-12-26] MEDS: SLF 3 ML SYR IV SCH (03:58)
[2018-12-26 06:00] VITALS: BP 136/85
[2018-12-26] MEDS ORDERED: MIDO5TA PO (06:38)
[2018-12-26] MEDS: SYMBICORT 160/4.5MCG INHALER 6GM INH SCH (07:32)
[2018-12-26] MEDS: MIDODRINE 5 MG TAB PO SCH ×2 (08:00→12:00)
[2018-12-26] MEDS: lamoTRIgine 100MG TAB PO SCH (08:05)
[2018-12-26] MEDS: DOCUSATE SODIUM 100 MG CAP PO SCH (08:05)
[2018-12-26] MEDS: VITAMIN D 1,000 INTERNATIONAL UNITS TABLET PO SCH (08:05)
[2018-12-26] MEDS: OMEPRAZOLE 20 MG CAP PO SCH (08:05)
[2018-12-26] MEDS: ESCITALOPRAM OXALATE 10 MG TAB (LEXAPRO) PO SCH (08:06)
[2018-12-26] MEDS: FOLIC ACID 1 MG TAB PO SCH (08:06)
[2018-12-26] MEDS: FERROUS SULFATE 325MG TAB PO SCH (08:06)
[2018-12-26] MEDS: ALPRAZolam 0.5 MG TAB PO SCH (08:06)
[2018-12-26] MEDS: NYSTATIN 100,000 UNITS/GM TOPICAL PWD 15 GM TOP SCH (08:09)
[2018-12-26] MEDS: busPIRone 5 MG TAB PO SCH (08:28)
--- NOTE | 2018-12-26 10:00 | DS.PDOC ---
Discharge Summary General Date of Admission Dec 12, 2018 at 22:50 Date of Discharge December 26, 2018 Discharge Summary DISCHARGE DIAGNOSES: Syncope and collapse due to orthostatic hypotension, Has resting tachycardia. Dysphagia to solids Abnormal Telemetry/ Torsades right knee laceration due to fall from syncopal episode Acute blood loss due to right knee laceration while on ASA and xarelto Chronic hypercapnic and Hypoxic respiratory failure End Stage COPD last FEV1 in 2012 was 24% with poor effort. Bronchiectasis Diastolic CHF, stable. Dyslipidemia Chronic back pain/chronic neck pain. 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 Anxiety. Diastolic CHF with preserved EF Pulmonary hypertension. Obesity BMI 44.0 DISCHARGE MEDICATIONS: PLS SEE BELOW DISCHARGE INSTRUCTIONS: PCP FU APPT WITHIN 5 DAYS TO REMOVE SUTURES. HISTORY OF PRESENTING ILLNESS: 58 year old female with multiple medical problems including End Stage COPD with chronic respiratory failure with hypoxia and hypercarbic, orthostatic hypotension, Morbid obesity BMI 44.0, probably Sleep apnea needs formal testing, diastolic CHF was in her usual state of health. This evening around 6 pm she had to go to the bathroom urgently so tigre up from her seat and immediately started rushing to the bathroom with her walker she felt a blackness coming over her eyes and she passed out and fell forward over her walker on her face and knees. After hitting the floor she immediately gained consciousness and pressed her Life alert. On presentation to the ED she had a deep laceration on the right knee which was stitched ( 14 stitches) and both the knees were badly bruised and swollen. She also had some abrasion and bruising on her face and nose. On my interview she complained of severe bilateral knee pain throbbing in nature , 10/10 in intensity located on both the knees with no radiation. She also says that her whole body is feeling sore. She is being admitted for syncope and collapse. HOSPITAL COURSE: Syncope and collapse due to orthostatic hypotension, Has resting tachycardia. increased midodrine dosage, and has been stable since. ECHO reviewed CT head negative. Last Echo was in 2018 which did not have any etiology for syncope. Dysphagia to solids Patient choked on her dinner and had a chunk of food bolus retrieved. CXR no pneumonitis. CT Neck: no foreign object. pt has been kept npo and on ivfluids since. pt denies any dysphagia to liquids and able to take her meds. no chest pain, pressure,tightness, lightheadedness, diaphoresis. no cough or worsening sob. Abnormal Telemetry/ Torsades -electrolytes optimized, supportive care with oxygen -checked serial card ontiveros, reviewed echo -blood pressure is maintained. right knee laceration with significant blood loss due to ASA and xarelto on admission stitches in place on the right pain control with percocet Acute blood loss due to right knee laceration while on ASA and xarelto -ASA and xarelto held initially -stitches by ER -ortho consulted recommended elevation on two pillows -Due to significant anemia, 2 units rbc transfusion 12/15/18 Chronic hypercapnic and Hypoxic respiratory failure seems to be at baseline compensated ABG oxygen supplementation nebs, inhalers as home Saw the select banker prior to admission End Stage COPD last FEV1 in 2012 was 24% with poor effort. albuterol nebs, symbicort in place of breo, prednisone follows with dr Tabor in [place]. sees him every six months. Bronchiectasis stable. Diastolic CHF, stable. Weight seems to be at baseline Dyslipidemia continue home meds Chronic back pain/chronic neck pain. 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 -resumed xarelto 12/25/18 prior to hospital discharge. Iron deficiency anemia chronic Orthostatic hypotension on midodrine resulted in fall with right knee laceration as reason for admission no recurrence since admission holding parameters for midodrine Gastroesophageal reflux disease. chronic Anxiety. chronic Diastolic CHF with preserved EF strict i/o Pulmonary hypertension. complicating care Obesity BMI 44.0 complicating care Discharge Physical Examination VITALS: PLS SEE BELOW General Exam: Positive: Alert, Cooperative, answering questions appropriately. Eye Exam: Positive: PERRLA, Conjunctiva & lids normal, EOMI; Negative: Sclera icteric ENT Exam: Positive: Mucous membr. moist/pink, Pharynx Normal, Tongue Midline, Nares Patent, Other ENT (broising on the bridge of the nose) Neck Exam: Positive: Supple; Negative: JVD, thyromegaly Chest Exam: Positive: clear but Diminished Heart Exam: Positive: Tachycardic, Regular Rhythm, Normal S1, Normal S2; Negative: Gallops, Murmurs, Rubs Telemetry: Positive: Sinus, Tachycardia Abdomen Exam: Positive: Normal bowel sounds, Soft; Negative: Tenderness, Hepatospenomegaly Extremity Exam: Positive: Tenderness (both knees), Swelling (both knees),laceration over the right knee with stitches, with hematoma extending along the lateral aspect of the right leg . dp, pt pulses noted, warm and pink in color. Neuro Exam: Positive: Normal Speech, Strength at 5/5 X4 ext, Normal Tone, Sensation Intact, Other (static tremor of left leg noted says RLS however may be parkinsons) Psych Exam: Positive: Anxiety, Memory Intact, Oriented x 3 ADMISSION LABORATORY DATA: 12/12/18 19:25: Anion Gap 2L, Glomerular Filtration Rate > 60.0, Blood Urea Nitrogen 11, Creatinine 0.91, Sodium Level 136, Potassium Level 4.2, Chloride Level 95L, Carbon Dioxide Level 39H, Calcium Level 9.9, Total Creatine Kinase 27, Magnesium Level 2.0, Creatine Kinase MB 1.1, Creatine Kinase MB Relative Index 4.07H, Troponin I < 0.02, Thyroid Stimulating Hormone (TSH) 0.510 12/12/18 19:26: Immature Granulocyte % (Auto) 0.5, White Blood Count 5.9, Red Blood Count 4.21, Hemoglobin 11.9L, Hematocrit 40.0, Mean Corpuscular Volume 95.0, Mean Corpuscular Hemoglobin 28.3, Mean Corpuscular Hemoglobin Concent 29.8L, Red Cell Distribution Width 14.1, Platelet Count 224, Neutrophils (%) (Auto) 64.6, Lymphocytes (%) (Auto) 18.9L, Monocytes (%) (Auto) 10.1H, Eosinophils (%) (Auto) 5.6H, Basophils (%) (Auto) 0.3, Neutrophils # (Auto) 3.8, Lymphocytes # (Auto) 1.1L, Monocytes # (Auto) 0.6, Eosinophils # (Auto) 0.3, Basophils # (Auto) 0.0, Nucleated Red Blood Cells % (auto) 0.0, Activated Partial Thromboplast Time 36.1, Blood Gas Bicarbonate Standard 35.4, Venous Blood pH 7.342, Venous Blood Partial Pressure CO2 76.5H, Venous Blood Partial Pressure O2 105.6H, Venous Blood Total Carbon Dioxide 42.9H, Venous Blood HCO3 40.5H, Venous Blood Oxygen Saturation 98.1H, Venous Blood Base Excess 11.6H 12/12/18 19:35: Bedside Glucose (Misc Panel) 107 12/12/18 20:39: Lactic Acid Level 1.1 CBC/BMP Laboratory Tests 12/12/18 19:25 Calcium Level 9.9, Total Creatine Kinase 27 12/12/18 19:26 Red Blood Count 4.21, Mean Corpuscular Volume 95.0, Mean Corpuscular Hemoglobin 28.3, Mean Corpuscular Hemoglobin Concent 29.8 L, Red Cell Distribution Width 14.1, Neutrophils (%) (Auto) 64.6, Lymphocytes (%) (Auto) 18.9 L, Monocytes (%) (Auto) 10.1 H, Eosinophils (%) (Auto) 5.6 H, Basophils (%) (Auto) 0.3, Neutrop hils # (Auto) 3.8, Lymphocytes # (Auto) 1.1 L, Monocytes # (Auto) 0.6, Eosinophils # (Auto) 0.3, Basophils # (Auto) 0.0 Microbiology Microbiology 12/12/18 Blood Culture, Received Pending 12/12/18 Blood Culture, Received Pending TODAY'S LABORATORY DATA, IMAGING STUDIES, MICROBIOLOGY: PLS SEE BELOW TIME SPENT ON DISCHARGE: 32 MIN Vital Signs/I&Os Vital Signs Date Time Temp Pulse Resp B/P (MAP) Pulse Ox O2 Delivery O2 Flow Rate FiO2 12/26/18 08:38 18 12/26/18 06:00 96.3 104 136/85 (102) 98 2.0 12/25/18 20:10 Nasal Cannula I&O- Last 24 Hours up to 6 AM 12/26/18 06:00 Intake Total 450 ml Output Total 0 ml Balance 450 ml Discharge Medications Scheduled Alprazolam (Alprazolam) 1 Mg Tab, 1 MG PO BID, (Reported) Aspirin (Aspirin EC) 81 Mg Tabec, 81 MG PO DAILY, (Reported) Buspirone HCl (Buspirone HCl) 5 Mg Tablet, 5 MG PO TID, (Reported) Cholecalciferol (Vitamin D3) (Vitamin D3) 2,000 Unit Tab, 2,000 UNIT PO DAILY, (Reported) Escitalopram Oxalate (Escitalopram Oxalate) 20 Mg Tab, 20 MG PO DAILY, (Reported) Ferrous Sulfate (Ferrous Sulfate) 325 Mg Tab, 325 MG PO DAILY, (Reported) Fluticasone/Vilanterol (Breo Ellipta 200-25 Mcg INH) 1 Inh Inh, 1 PUFF INH DAILY, (Reported) Folic Acid (Folic Acid) 1 Mg Tab, 1 MG PO DAILY, (Reported) Lamotrigine (Lamotrigine) 150 Mg Tab, 150 MG PO DAILY, (Reported) Midodrine HCl (Midodrine HCl) 5 Mg Tablet, 5 MG PO 08,12,16 Omeprazole (Omeprazole) 40 Mg Cap, 40 MG PO BID, (Reported) Rivaroxaban (Xarelto) 10 Mg Tab, 10 MG PO DAILY, (Reported) Ropinirole HCl (Ropinirole HCl) 2 Mg Tablet, 2 MG PO QHS Sennosides (Senna Lax) 8.6 Mg Tablet, 2 TAB PO QHS, (Reported) Simvastatin (Zocor) 20 Mg Tab, 20 MG PO QHS, (Reported) Torsemide (Torsemide) 20 Mg Tablet, 20 MG PO DAILY, (Reported) Scheduled PRN Albuterol Sulfate (Ventolin Hfa) 108 Mcg/Act Aer, 2 PUFF INH Q4H PRN for SHORTNESS OF BREATH, (Reported) Nitroglycerin (Nitrostat) 0.4 Mg Subl, 0.4 MG SL NITRO PRN for CHEST PAIN, (Reported) Ondansetron HCl (Ondansetron HCl) 4 Mg Tab, 4 MG PO Q6H PRN for NAUSEA, (Reported) Oxycodone HCl/Acetaminophen (Percocet 5-325 mg Tablet) 1 Tab Tab, 1 TAB PO Q6H PRN for PAIN, (Reported) Allergies Coded Allergies: morphine (Verified Allergy, Severe, SOB, itching, rash, 11/15/18) Penicillins (Verified Allergy, Intermediate, Hives, 11/15/18) Quinolones (Verified Allergy, Intermediate, Hives, 11/15/18) Sulfa (Sulfonamide Antibiotics) (Verified Allergy, Intermediate, Hives, 11/15/18) cephalexin (Verified Allergy, Intermediate, Hives, 11/15/18) clavulanic acid (Verified Allergy, Intermediate, Hives, 11/15/18) erythromycin base (Verified Allergy, Intermediate, Hives, 11/15/18) moxifloxacin (Verified Allergy, Intermediate, Hives, 11/15/18) methylprednisolone (Verified Allergy, Mild, RASH WITH IV, 11/15/18) levofloxacin (Verified Allergy, Unknown, 11/15/18) iodine (Verified Adverse Reaction, Intermediate, Acute renal insufficiency , 11/15/18) iopamidol (Verified Adverse Reaction, Intermediate, Acute renal insufficiency, 11/15/18) gabapentin (Verified Adverse Reaction, Mild, Upset stomach, 11/15/18) PORTIA QUIROZ MD Dec 26, 2018 10:00
--- NOTE | 2019-01-02 10:40 | REP ---
Examination Requested: Esophagram Barium Swallow Reason For Exam/Comment: Evaluate for obstruction Esophagram: The procedure was performed MANOLO Ribeiro, under the direct supervision of Dr. Wolf. The images were reviewed with Dr. Wolf. The supervisor industrial garment film shows no organomegaly or pathological masses. The intestinal gas pattern appears normal. Liquid barium was given in the anterior oblique position. This is a limited exam, to evaluate for obstruction. Oral and pharyngeal stages of the examination were unremarkable. Esophageal transport is efficient and there is no stricture, or mucosal ring noted. Impression: 1. No obstruction or stricture visualized. 0.3 minutes of fluoroscopy time was utilized for this procedure. Some fluoroscopic images are performed with last image hold technology. These images require no additional radiation. Reviewed by MANOLO Barriga 12/17/2018 04:06 P Electronically Signed by Lee Wolf MD 01/02/2019 10:32 A
== END 2018-12-26 13:04 | disposition home health service (06) | DRG 204 ==
LOC: EDBD 18:06 → M ED 18:06 → M ED INP 22:50 → M PCU 12-13 12:37 → M MSPAV 12-20 17:08
PROVIDERS: ADMIT Internal Medicine Nephrology; ATTEND General Practice
DX: I95.1 Orthostatic hypotension (principal); J96.11 Chronic respiratory failure with hypoxia; Z68.41 Body mass index [BMI] 40.0-44.9, adult; J96.12 Chronic respiratory failure with hypercapnia; I11.0 Hypertensive heart disease with heart failure; I27.20 Pulmonary hypertension, unspecified; E66.01 Morbid (severe) obesity due to excess calories; R13.10 Dysphagia, unspecified; I50.32 Chronic diastolic (congestive) heart failure; S81.011A Laceration without foreign body, right knee, initial encounter; J44.9 Chronic obstructive pulmonary disease, unspecified; G47.30 Sleep apnea, unspecified; D50.9 Iron deficiency anemia, unspecified; I25.10 Atherosclerotic heart disease of native coronary artery without angina pectoris; R00.0 Tachycardia, unspecified; G25.81 Restless legs syndrome; E78.00 Pure hypercholesterolemia, unspecified; K21.9 Gastro-esophageal reflux disease without esophagitis; F41.9 Anxiety disorder, unspecified; F32.9 Major depressive disorder, single episode, unspecified; W18.09XA Striking against other object with subsequent fall, initial encounter; Y92.89 Other specified places as the place of occurrence of the external cause; Z88.0 Allergy status to penicillin; Z88.1 Allergy status to other antibiotic agents; Z88.2 Allergy status to sulfonamides; Z88.5 Allergy status to narcotic agent; Z88.8 Allergy status to other drugs, medicaments and biological substances; Z86.711 Personal history of pulmonary embolism; Z86.718 Personal history of other venous thrombosis and embolism; Z79.01 Long term (current) use of anticoagulants; Z96.641 Presence of right artificial hip joint; Z87.891 Personal history of nicotine dependence

== ENCOUNTER 2019-01-05 10:58 | Inpatient (IN) | payer OTHER ==
[~2019-01-05] VITALS: Ht 162.6 cm; Wt 108.1 kg
[2019-01-05] VITALS (9 sets, daily range): BP systolic 117–146; BP diastolic 59–89
[2019-01-05 11:33] LABS: BASO % 0.5 % (0.0-1.0); EOS # 0.5 10^3/uL (0.0-0.50); HEMATOCRIT 41.3 % (36.0-47.0); LYMPH # 1.7 10^3/uL (1.5-4.5); LYMPH % 18.8 % (24.0-44.0); MEAN CORPUSCULAR HGB CONC 29.1 g/dl (32.0-36.5); MEAN CORPUSCULAR VOLUME 99.8 fl (80.0-96.0); MONO # 0.7 10^3/uL (0.0-0.8); MONO % 8.2 % (0.0-5.0); NEUTROPHILS # 5.9 10^3/uL (1.8-7.7); NEUTROPHILS % 66.2 % (36.0-66.0); PLATELET COUNT, AUTOMATED 230 10^3/uL (150-450); RED BLOOD COUNT 4.14 10^6/uL (4.00-5.40); WHITE BLOOD COUNT 8.9 10^3/uL (4.0-10.0)
[2019-01-05] MEDS ORDERED: methylPREDNISolone INJ 125 MG/2 ML VIAL (J2930) IV ONE (11:45)
[2019-01-05] MEDS ORDERED: IPRATROPIUM 0.5MG/ALBUTEROL 2.5MG INH SOL UD 3ML (DUONEB)(J7620) NEB ONE (11:45)
[2019-01-05 11:57] LABS: BLOOD UREA NITROGEN 12 MG/DL (7-18); CALCIUM LEVEL 9.3 MG/DL (8.8-10.2); CARBON DIOXIDE LEVEL 43 MEQ/L (21-32); CHLORIDE LEVEL 95 MEQ/L (98-107); CK-MB VALUE MASS 1.1 NG/ML (<3.6); CPK CREATINE PHOSPHOKINASE 21 U/L (26-192); CREATININE FOR GFR 0.85 MG/DL (0.55-1.30); GLOMERULAR FILTRATION RATE > 60.0 (>45); GLUCOSE, FASTING 107 MG/DL (70-100); MB/CK RELATIVE INDEX 5.24 (< OR =4); POTASSIUM SERUM 4.1 MEQ/L (3.5-5.1); SODIUM LEVEL 141 MEQ/L (136-145); TROPONIN I < 0.02 NG/ML (< 0.10)
[2019-01-05 12:06] LABS: ABG HCO3 42.9 MEQ/L (22.0-26.0); ABG O2 SATURATION 99.8 % (95.0-99.0); ABG PARTIAL PRESSURE O2 223.7 mmHg (75.0-100.0); ABG STANDARD HCO3 36.8 MEQ/L (22.0-26.0); ABG TOTAL CO2 45.5 MEQ/L (23.0-31.0)
[2019-01-05 12:10] LABS: ABG PARTIAL PRESSURE CO2 87.1 mmHg (35.0-45.0)
[2019-01-05 12:17] LABS: ACETAMINOPHEN LEVEL < 2.0 UG/ML (10.0-30.0); ALBUMIN 3.3 GM/DL (3.2-5.2); ALT/SGPT 20 U/L (12-78); BILIRUBIN,DIRECT 0.1 MG/DL (0.0-0.2); BILIRUBIN,TOTAL 0.3 MG/DL (0.2-1.0); ETHYL ALCOHOL (ETHANOL) < 0.003 % (0.000-0.010); SALICYLATE LEVEL < 1.7 MG/DL (5.0-30.0); THYROID STIMULATING HORMONE 0.772 uIU/ML (0.358-3.740); TOTAL PROTEIN 6.8 GM/DL (6.4-8.2)
--- NOTE | 2019-01-05 12:21 | REP ---
CHEST, SINGLE VIEW: Single view of the chest is performed and compared to a prior study 12/14/2018. There is mild linear fibroatelectatic change in each lung base. There is no evidence of acute infiltrate. The heart is slightly prominent but unchanged. Mediastinal silhouette is unchanged. IMPRESSION: Mild fibroatelectatic changes without acute infiltrate. Electronically Signed by Mikhail Cochran MD 01/05/2019 11:52 P
[2019-01-05] MEDS ORDERED: ALPR0.5T3 PO (13:15)
[2019-01-05] MEDS ORDERED: ROPI2TAB PO (13:15)
[2019-01-05] MEDS ORDERED: MIDO5TA PO (13:15)
[2019-01-05] MEDS ORDERED: ALBU83IN INH (13:16)
[2019-01-05] MEDS ORDERED: PILL CUTTER 1 EACH XX PRN (15:00)
[2019-01-05] MEDS: MIDODRINE 5 MG TAB PO SCH (17:11)
[2019-01-05] MEDS: busPIRone 5 MG TAB PO SCH ×2 (17:12→20:18)
[2019-01-05] MEDS: PERCOCET 5MG/325MG TAB PO PRN ×2 (17:12→23:14)
[2019-01-05] MEDS: IPRATROPIUM 0.5MG/ALBUTEROL 2.5MG INH SOL UD 3ML (DUONEB)(J7620) NEB SCH (19:43)
--- NOTE | 2019-01-05 19:43 | ECGEPIP ---
[facility] - ED Test Date: 2019-01-05 Pat Name: JULITO PUENTE Department: Room: - Gender: Female Chronometer Tester: shannan : 1960 Requested By: Burton Chopra Order Number: [id number] Reading MD: Burton Chopra Measurements Intervals Neely Rate: 114 P: 51 NE: 198 QRS: 15 QRSD: 93 T: 43 QT: 339 QTc: 468 Interpretive Statements SINUS TACHYCARDIA ABNORMAL RHYTHM ECG BASELINE ARTIFACT MAY AFFECT READING BASELINE WANDERING MAY AFFECT READING NONSPECIFIC ST T WAVE CHANGES CW 12/14/[address] T WAVE CHANGES Electronically Signed on 01-05-2019 19:43:41 EDT by Burton Chopra
[2019-01-05] MEDS: SENNA 8.6 MG TAB (SENOKOT) PO SCH (20:18)
[2019-01-05] MEDS: ALPRAZolam 0.5 MG TAB PO SCH (20:19)
[2019-01-05] MEDS: SIMVASTATIN 20 MG TAB PO SCH (20:19)
[2019-01-05] MEDS: rOPINIRole 2MG TAB PO SCH (20:19)
[2019-01-06] VITALS (12 sets, daily range): BP systolic 112–149; BP diastolic 62–90
[2019-01-06] MEDS: IPRATROPIUM 0.5MG/ALBUTEROL 2.5MG INH SOL UD 3ML (DUONEB)(J7620) NEB SCH ×4 (01:53→21:37)
[2019-01-06 04:43] LABS: HEMATOCRIT 37.9 % (36.0-47.0); HEMOGLOBIN 11.2 g/dl (12.0-15.5); MEAN CORPUSCULAR HEMOGLOBIN 28.6 pg (27.0-33.0); MEAN CORPUSCULAR HGB CONC 29.6 g/dl (32.0-36.5); MEAN CORPUSCULAR VOLUME 96.9 fl (80.0-96.0); PLATELET COUNT, AUTOMATED 213 10^3/uL (150-450); RED BLOOD COUNT 3.91 10^6/uL (4.00-5.40); WHITE BLOOD COUNT 2.7 10^3/uL (4.0-10.0)
[2019-01-06 04:48] LABS: BLOOD UREA NITROGEN 15 MG/DL (7-18); CALCIUM LEVEL 9.2 MG/DL (8.8-10.2); CARBON DIOXIDE LEVEL 38 MEQ/L (21-32); CHLORIDE LEVEL 94 MEQ/L (98-107); CREATININE FOR GFR 0.74 MG/DL (0.55-1.30); GLOMERULAR FILTRATION RATE > 60.0 (>45); GLUCOSE, FASTING 136 MG/DL (70-100); POTASSIUM SERUM 4.1 MEQ/L (3.5-5.1); SODIUM LEVEL 138 MEQ/L (136-145)
[2019-01-06] MEDS: PERCOCET 5MG/325MG TAB PO PRN ×5 (05:36→23:40)
--- NOTE | 2019-01-06 06:36 | HPE ---
DATE OF ADMISSION: 01/05/2019 DIAGNOSES: 1. Acute on chronic respiratory failure. 2. Unintentional overdose of home medications. Primary care provider: Dr. Sukhdev Conde, [facility]. HISTORY OF PRESENT ILLNESS: Katrin Alfred unintentionally took a double dose of her medications last night. She came to the emergency room and she was found to be in respiratory failure. She was put on BiPAP and she was admitted. Per her progress records she had a recent ambulance call for lethargy and altered mental status but she declined coming to the emergency room. She was last hospitalized 12/12/2018 for loss of consciousness. CURRENT MEDICATIONS: - Xanax 1 mg twice a day - aspirin 81 mg daily - BuSpar 5 mg three times a day - vitamin D 2000 units daily - Lexapro 20 mg daily - Feosol 325 mg daily - Breo Ellipta 200-25 one inhalation daily - Folic Acid 1 mg daily - Lamictal 150 mg daily - Midodrine 5 mg three times a day - omeprazole 40 mg twice a day - Xarelto 10 mg daily - ropinirole 2 mg nightly - Senna as needed - simvastatin 20 mg nightly - Torsemide 20 mg daily ALLERGIES: List was reviewed,extensive. REVIEW OF SYSTEMS: Unobtainable. The patient is sleeping. PHYSICAL EXAMINATION: VITAL SIGNS: Per flow sheet. GENERAL: Obese, lyng in bed. BiPAP on. HEENT: Unremarkable. LUNGS: Decreased breath sounds but clear. HEART: Regular rhythm. ABDOMEN: Soft, nontender, mildly distended. No masses. EXTREMITIES: No clubbing or cyanosis, trace edema. She moves arms and legs spontaneously. LABORATORY DATA: Sodium 141, potassium 4.1, BUN 12, creatinine 0.5, glucose 107. Arterial blood gas (ABG): 7.31/87/223. Complete blood count (CBC) Unremarkable. IMPRESSION: 1. Acute on chronic respiratory failure. The patient is on BiPAP in the emergency room and being admitted to the intensive care unit (ICU). Dr. Perez and I discussed the case. She will be consulted, nebulized bronchodilators have been ordered. Intravenous steroids empirically. Clear chest x-rays so no indication for antibiotics. 2. Hypotension. Continue Midodrine. 3. Chronic anxiety problems. Continue her Lexapro, Xanax and BuSpar. 4. Restless leg syndrome. Continue Requip. 5 History of deep venous thrombosis (DVT): Continue her long-term dose of Xarelto. 6. Seizure disorder. Continue her Lamictal.
[2019-01-06 07:21] LABS: ABG BASE EXCESS 12.4 (-2.0-2.0); ABG HCO3 38.2 MEQ/L (22.0-26.0); ABG O2 SATURATION 87.9 % (95.0-99.0); ABG PARTIAL PRESSURE CO2 55.1 mmHg (35.0-45.0); ABG PARTIAL PRESSURE O2 50.5 mmHg (75.0-100.0); ABG STANDARD HCO3 35.9 MEQ/L (22.0-26.0); ABG TOTAL CO2 39.9 MEQ/L (23.0-31.0); ABG pH (ARTERIAL) 7.459 UNITS (7.350-7.450)
--- NOTE | 2019-01-06 07:36 | CCN ---
CONSULTATION CRITICAL CARE: DATE: 01/05/2019 Ms. Katrin Alfred again presents for acute on chronic hypercarbic respiratory failure. She states she was not feeling ill. She states she had taken two extra doses of her usual medications by accident. She woke up in the middle of the night and got confused. She presented today with increased hypercarbia, acute on chronic hypercarbic respiratory failure with an initial arterial blood gas with pH of 7.31, pCO2 of 87, pO2 of 223. On my arrival to the intensive care unit (ICU) room, the patient was awake and did not want to answer the majority of my questions just wanted her "pain medicine." She demanded to know when her pain medicine would be given. I was able to calm her down some, explained the necessity of me evaluating her breathing status. She states she has had no recent illness. She has had no increase in wheezing. She had a recent fall, and therefore, refuses to let me examine her legs as they are too painful to even touch. On mechanical (dictation cut off), she was obtaining initially tidal volumes in the 500 on an inspiratory pressure of 12, expiratory pressure of 6. However, on my arrival, she was in the low 300s. I therefore increased the pressure, adjusted her mask and on settings of 14/8 was now getting tidal volumes in the low 500 range. She does have a short chin and the mask has been sliding off the bottom of her chin. Will try a smaller mask to see if she is able to have a better seal with that. Overall, she denies all new symptoms. Temperature is 99.0, pulse is 114, respiratory rate is 24, blood pressure is 146/82 with mean arterial pressure of 103, oxygen saturations 98% on 0.40 FiO2. General: The patient is awake, alert, answering most questions but clearly angered.. Sclerae clear and anicteric. Pupils equal, react to light. Mucous membranes are moist. Tongue is midline. Neck is supple. She has short chin, short thyromental distance. No supraclavicular, cervical, or axillary adenopathy. Cardiac: Distant S1, S2, tachycardiac without murmur, rub, or gallop. There is no elevated jugular venous pulse (JVP) that is discernible. Point of maximum impulse (PMI) is difficult to palpate due to body habitus. Pulmonary: Decreased breath sounds in all lung white with no rales, rhonchi, or wheezes. No accessory muscles. Abdomen: Obese, soft, nontender, nondistended. No hepatosplenomegaly. The patient refuses the exam of the lower extremities. On visual inspection, there is a wound on the right knee with suture material intact. She states it is not due to be removed for a week. There is no discoloration to the skin on visual inspection. No further evaluation could be done of the extremities due to her refusal of exam. Neurologic: She has a tremor. She states she has a baseline tremor and this is not new. There is no asterixis. She did not cooperate with any other further testing or physical exam. Laboratory evaluation shows a white blood cell count of 8.9, hemoglobin of 12.0, platelet count of 230. Arterial blood gas was pH of 7.31, pCO2 of 87.1, pAO2 of 223. Sodium is 141, potassium 4.1, chloride 95, bicarbonate 43, creatinine 0.85. Apparently, the patient had another arterial blood gas done at 1407 hours showing a pH of 7.33, pCO2 of 85, pAO2 of 114. I am not sure but it does appear to be an arterial blood. Chest x-ray shows hypo expanded lung from body habitus with some minimal blunting of the left costophrenic angle but no acute infiltrate. No masses. There is prominent vascular congestion. IMPRESSION: Acute on chronic respiratory failure more likely secondary to drug effect than exacerbation with taper steroids quickly especially because of body habitus. I did not auscultate any bronchospasm on exam, in fact, if she does well without any findings would actually discontinue the steroids tomorrow. Will remain on bilevel noninvasive therapy until she corrects. I agree with holding potentially offending medication until she has better respirations. The patient will remain in the ICU with close monitoring of her ventilatory status as she is at risk for requiring intubation, mechanical ventilation.
[2019-01-06] MEDS: RIVAROXABAN 10 MG TAB (XARELTO) PO SCH (08:10)
[2019-01-06] MEDS: FOLIC ACID 1 MG TAB PO SCH (08:10)
[2019-01-06] MEDS: ESCITALOPRAM OXALATE 10 MG TAB (LEXAPRO) PO SCH (08:10)
[2019-01-06] MEDS: MIDODRINE 5 MG TAB PO SCH ×3 (08:10→15:28)
[2019-01-06] MEDS: ALPRAZolam 0.5 MG TAB PO SCH ×2 (08:11→21:19)
[2019-01-06] MEDS: ASPIRIN 81 MG ENTERIC TAB PO SCH (08:11)
[2019-01-06] MEDS: lamoTRIgine 100MG TAB PO SCH (08:11)
[2019-01-06] MEDS: TORSEMIDE 20 MG TAB PO SCH (08:11)
[2019-01-06] MEDS: VITAMIN D 1,000 INTERNATIONAL UNITS TABLET PO SCH (08:11)
[2019-01-06] MEDS: busPIRone 5 MG TAB PO SCH ×3 (08:11→21:19)
[2019-01-06] MEDS: methylPREDNISolone INJ 40 MG/1 ML VIAL (J2920) IV SCH (08:28)
--- NOTE | 2019-01-06 11:09 | IPN ---
DATE OF SERVICE: 01/06/2019 The patient was seen and examined this morning. She was on BiPap overnight and was taken off of BiPap this morning and placed back on her home nasal cannula oxygen. The patient reports she is feeling better this morning. She is not as confused. She is continuing to complain of severe pain in her knees bilaterally as well as in her back. She was asking for pain medication to help with her pain. She otherwise feels her breathing is at baseline. She does occasionally have some shortness of breath, more with exertion. She has not had any significant wheezing or coughing recently. Has not had any fevers or chills. No chest pain. PHYSICAL EXAM: Temperature 98, pulse 101, respirations 18, blood pressure 136/84, O2 92% on 30% FIO2. General: The patient is awake and alert, is answering questions appropriately. Has occasional tremor. HEENT: Normocephalic, atraumatic. Mucous membranes are moist. Neck is supple. Trachea is midline. No palpable adenopathy. Cardiac: Distant heart sounds, regular rate and rhythm. Normal S1 and S2. No murmurs auscultated. Pulmonary: Decreased breath sounds bilaterally with prolonged expiration and faint wheeze with more forceful coughing, but no significant rhonchi. There is occasional crackles at the bases. Abdomen is obese, soft, nontender. No hepatosplenomegaly. Lower extremities very tender to any touch. There are sutures in her right knee and some bruising in her knees bilaterally. LABORATORY DATA: WBC 2.7, hemoglobin 11.2, platelets 213. Chemistry: Sodium is 138, potassium 4.1, chloride 94, bicarb 38, BUN 15, creatinine 0.74, glucose is 136, lactic acid 1.1. ABG this morning: pH 7.459, pCO2 of 55.1, pO2 of 50.5. IMPRESSION: Ms. Alfred is a 58 yo f with end-stage chronic obstructive pulmonary disease (COPD), chronic hypoxemic respiratory failure on nasal cannula oxygen supplementation, history of chronic hypercarbic respiratory failure, history deep vein thrombosis (DVT/pulmonary embolism (PE) on anticoagulation, coronary artery disease (CAD,) hypertension, gastroesophageal reflux disease, diastolic congestive heart failure with pulmonary hypertension, anxiety, and chronic pain syndrome, who had recently been hospitalized with a fall and possible syncope, who presents today with confusion and mild acute on chronic hypercarbic respiratory failure. The patient reported some confusion in her medications and had taken a double dose of her medications last night and so presented to the emergency department (ED). Her initial ABG showed some slight worsening of her chronic hypercarbia and she was placed on BiPap with improvement in her ABG this morning. On exam, the patient denied any worsening shortness of breath from her baseline. She did not have any increased wheezing or coughing. Suspect that her acute worsening of her hypercarbia may be in the setting of some of her medications, including her pain and anxiety medications. She does not appear to have any increased lower extremity edema or fluid overload so suggest decompensated CHF currently. - Would continue her with her home inhalers. Patient was on Breo for a home inhaler. Can place her on Advair while she is admitted. She is on DuoNebs [id number] which we can continue here. - Continue with steroids. Would change Solu-Medrol to prednisone 40 mg and continue with tapering dosage. - The patient was on BiPap overnight with settings of 14/8 and 30% FIO2. Would hold off on BiPap tonight and follow up with a repeat ABG in the morning off of BiPap. The patient had previously had a home sleep study done which did not show any significant sleep apnea. She has also had multiple nocturnal oximetry studies done which did not show desaturation overnight on NC O2. Therefore, despite her chronic hypercarbia due to her end-stage COPD, she still does not qualify for home noninvasive positive pressure ventilation at this time. - Discussed with the patient that some of her pain medications as well as anxiety medications can contribute to some confusion as well as worsening of her hypercarbia. However, the patient is adamant in receiving these medications. At her last clinic visit, we had discussed hospice and code status, but the patient had become very tearful with discussion. We mentioned her code status again at this time, especially given her end-stage COPD as well as her recent and recurrent hospitalizations. The patient is very adamant about not going to any rehab facility. She does have a home organizer who is with her. Would consider hospice evaluation during this hospitalization possibly if patient is agreeable. - would give incentive spirometer. - Continue with nasal cannula oxygen supplementation to maintain O2 sat 88-92%. DVT prophylaxis. FULL CODE. Total critical care time spent, not including any procedures, approximately 40 minutes. Please not hesitate to call if any further questions or concerns MTDD
--- NOTE | 2019-01-06 11:20 | IPN ---
DATE: 01/06/2019 PRIMARY CARE PROVIDER: Dr. Sukhdev Conde, [facility]. Katrin is seen in the intensive care unit (ICU), on hospitalist service, admitted with acute on chronic respiratory failure. She seems very focused on getting her pain medications increased. She is on bilevel noninvasive therapy through pulmonary. Appreciate Dr. Perez help yesterday and Dr. Maloney's today. The patient is back to her baseline oxygenation, mental status, and pulmonary function. PHYSICAL EXAM: 136/84, pulse 100, pulse oximetry 91% on 30%. General appearance: When I come in the room she is demanding more pain meds and when I leave room she wants to make sure that I know that she wants more pain meds. She is tremulous and looks agitated. Lungs have decreased breath sounds but clear. Heart: Regular rate and rhythm. Abdomen: Soft, nontender. She is morbidly obese. Trace peripheral edema. LABS: Sodium 138, potassium 4.1, BUN 15, creatinine 0.4, glucose 136. White count 2.7, hemoglobin 11.2, platelets 213. ABG 7.45/55/50. IMPRESSION: 1. Acute respiratory failure. She is back to her baseline. We will transfer her out of the unit. Appreciate pulmonary's help. If she remains stable for 24 hours, her steroids could be discontinued per Dr. Perez' recommendation and she could even be discharged in the next day or two. 2. Chronic pain syndrome with opiate dependence. I think some of her tremulous anxiety is related to her opiates being prescribed every 6 hours, which is how I think they are actually prescribed, versus every 4 hours, which is how she actually takes them. I will increase them to her baseline every 4 hour dosing. 3. Chronic anxiety. Continue Lexapro, Xanax, and BuSpar. 4. Restless leg syndrome. Continue Requip. 5. Orthostatic hypotension. She used midodrine, which has been continued. 6. Seizure disorder. Continue Lamictal. 7. History of deep venous thrombosis (DVT). Continue her Xarelto, which is at the maintenance dose of 10 mg daily for long-term use. We will get a home safety evaluation tomorrow and then she could be discharged tomorrow. ADDENDUM: I think that Katrin's dependence on her opiates and intermittent withdrawal from this contributes to her restlessness. I have put a consultation into the palliative care service to see her and maybe they could work on her severe end stage lung problem as well as her chronic pain issues
--- NOTE | 2019-01-06 17:03 | CR.PDOC ---
General Date of Consultation: Jan 06, 2019 Referring Provider: Albert Morris MD Primary Care Physician: Albert Morris MD Consultation REASON FOR CONSULTATION/CHIEF COMPLAINT: 58 year old morbidly obeses female wih end age COPD, anxiety disorder and chronic pain admittd yesterday w ith hypercapnia. Dr. Morris requested Palliative Care consult HISTORY OF PRESENT ILLNESS: Katrin reports having very bad lung disease and stated seh came in yesterday after she became confused. She was hypercapneic. She has [employer] health aides and public health nurse, OT/PT that come to her apartment. She stated she cannot toelrate leavng her appartment due to severe anxiety. She only leaves to go to MD appointments. She indicated she has chronic neck and low back pain and currently has acute knee pain due to falling prior to her admission here yesterday. ALLERGIES: Please see below. HOME MEDICATIONS: Please see below. PAST MEDICAL HISTORY: 1. COPD 2. CHF 3. morbi obesity 4. anxiety disorder/agoraphobia 5. RLS PAST SURGICAL HISTORY: 1. ROME/BSO 2. appendectmy 3. left knee ACL repair 4. R BRIGID FAMILY HISTORY: Father: CAD, DM Mother: bone ca Siblings: COPD, CAD Children: 3 daughters: 1 with DM SOCIAL HISTORY: Marital status and/or living arrangements: Children: 3 Employment:disabled Tobacco use: no ETOH: no Illicit drug use: no REVIEW OF SYSTEMS: CONSTITUTIONAL: +fatigue HEENT: no dipolpia, no hearing chagnes, no dysphagia CARDIOVASCULAR: denies chest pain, recent edema lower extremities RESPIRATORY: PATEL, O2 dependent GENITOURINARY: incontinent of urine MUSCULOSKELETAL: neck, low back pain, left hip and bilateral knee pain GASTROINTESTINAL: denies constipation, diarhea, weight changes SKIN: bruising NEUROLOGICAL: RLS, chronic tremors. PSYCHIATRIC: anxious ENDOCRINE: denes excesive thirst HEMATOLOGIC/LYMPHATIC: NA ALLERGIC/IMMUNOLOGIC: [NA PHYSICAL EXAMINATION: VITAL SIGNS: Please see below. GENERAL APPEARANCE: Resting in bed, trembling, able to make her needs known, a bit suspicious of me initially HEENT: LISA, EOM intact RESPIRATORY: decreased breath sounds throughout. CARDIOVASCULAR: RRR ABDOMEN: Obese +BS EXTREMITIES: Bruising noted on lower extremities, no CCE NEUROLOGICAL: tremors upper and lower extremities PSYCHIATRIC: anxious LABORATORY DATA: Please see below. ASSESSMENT/PLAN: 1. Discussed [facility] Clinic with her. She stated she cannot possible go to the clinic. Discussed COPD group with her: she cannot tolerate going to the floor these meetings are held due to tobacco and alcohol odors 2. Will visit with her again tomorrow with Batsheva Charles LMSW Vital Signs/I&O Vital Signs Date Time Temp Pulse Resp B/P (MAP) Pulse Ox O2 Delivery O2 Flow Rate FiO2 01/06/19 15:59 20 2.0 01/06/19 13:21 106 01/06/19 12:00 98.7 116/66 (83) 92 01/06/19 08:00 30 01/05/19 11:05 Nasal Cannula I&O- Last 24 Hours up to 6 AM 01/06/19 06:00 Intake Total 270 ml Output Total 0 ml Balance 270 ml Laboratory Data Labs 24H Laboratory Tests 2 01/06/19 03:49: Nucleated Red Blood Cells % (auto) 0.0, Anion Gap 6L, Glomerular Filtration Rate > 60.0, Blood Urea Nitrogen 15, Creatinine 0.74, Sodium Level 138, Potassium Level 4.1, Chloride Level 94L, Carbon Dioxide Level 38H, Calcium Level 9.2 01/06/19 07:03: Blood Gas Bicarbonate Standard 35.9H, Arterial Blood pH 7.459H, Arterial Blood Partial Pressure CO2 55.1H, Arterial Blood Partial Pressure O2 50.5L, Arterial Blood Total CO2 39.9H, Arterial Blood HCO3 38.2H, Arterial Blood Base Excess 12.4H, Arterial Blood Oxygen Saturation 87.9L CBC/BMP Laboratory Tests 01/06/19 03:49 Red Blood Count 3.91 L, Mean Corpuscular Volume 96.9 H, Mean Corpuscular Hemoglobin 28.6, Mean Corpuscular Hemoglobin Concent 29.6 L, Red Cell Distribution Width 14.1, Calcium Level 9.2 Allergies Coded Allergies: morphine (Verified Allergy, Severe, SOB, itching, rash, 11/15/18) Penicillins (Verified Allergy, Intermediate, Hives, 11/15/18) Quinolones (Verified Allergy, Intermediate, Hives, 11/15/18) Sulfa (Sulfonamide Antibiotics) (Verified Allergy, Intermediate, Hives, 11/15/18) cephalexin (Verified Allergy, Intermediate, Hives, 11/15/18) clavulanic acid (Verified Allergy, Intermediate, Hives, 11/15/18) erythromycin base (Verified Allergy, Intermediate, Hives, 11/15/18) moxifloxacin (Verified Allergy, Intermediate, Hives, 11/15/18) methylprednisolone (Verified Allergy, Mild, RASH WITH IV, 11/15/18) levofloxacin (Verified Allergy, Unknown, 11/15/18) iodine (Verified Adverse Reaction, Intermediate, Acute renal insufficiency , 11/15/18) iopamidol (Verified Adverse Reaction, Intermediate, Acute renal insufficiency, 11/15/18) gabapentin (Verified Adverse Reaction, Mild, Upset stomach, 11/15/18) Home Medications Scheduled Alprazolam (Alprazolam) 0.5 Mg Tablet, 0.5 MG PO BID, (Reported) Aspirin (Aspirin EC) 81 Mg Tabec, 81 MG PO DAILY, (Reported) Buspirone HCl (Buspirone HCl) 5 Mg Tablet, 5 MG PO TID, (Reported) Cholecalciferol (Vitamin D3) (Vitamin D3) 2,000 Unit Tab, 2,000 UNIT PO DAILY, (Reported) Escitalopram Oxalate (Escitalopram Oxalate) 20 Mg Tab, 20 MG PO DAILY, (Reported) Ferrous Sulfate (Ferrous Sulfate) 325 Mg Tab, 325 MG PO DAILY, (Reported) Fluticasone/Vilanterol (Breo Ellipta 200-25 Mcg INH) 1 Inh Inh, 1 PUFF INH DAILY, (Reported) Folic Acid (Folic Acid) 1 Mg Tab, 1 MG PO DAILY, (Reported) Lamotrigine (Lamotrigine) 150 Mg Tab, 150 MG PO DAILY, (Reported) Midodrine HCl (Midodrine HCl) 5 Mg Tablet, 5 MG PO TID, (Reported) 0800/1200/1600 Omeprazole (Omeprazole) 40 Mg Cap, 40 MG PO BID, (Reported) Rivaroxaban (Xarelto) 10 Mg Tab, 10 MG PO DAILY, (Reported) Ropinirole HCl (Ropinirole HCl) 2 Mg Tablet, 2 MG PO QHS, (Reported) Sennosides (Senna Lax) 8.6 Mg Tablet, 2 TAB PO QHS, (Reported) Simvastatin (Zocor) 20 Mg Tab, 20 MG PO QHS, (Reported) Torsemide (Torsemide) 20 Mg Tablet, 20 MG PO DAILY, (Reported) Scheduled PRN Albuterol Sulf (Albuterol Sulfate) 2.5 Mg/3 Ml Vial.neb, 2.5 MG INH Q4H PRN for SHORTNESS OF BREATH, (Reported) Albuterol Sulfate (Ventolin Hfa) 108 Mcg/Act Aer, 2 PUFF INH Q4H PRN for SHORTNESS OF BREATH, (Reported) Nitroglycerin (Nitrostat) 0.4 Mg Subl, 0.4 MG SL NITRO PRN for CHEST PAIN, (Reported) Ondansetron HCl (Ondansetron HCl) 4 Mg Tab, 4 MG PO Q6H PRN for NAUSEA, (Reported) Oxycodone HCl/Acetaminophen (Percocet 5-325 mg Tablet) 1 Tab Tab, 1 TAB PO Q6H PRN for PAIN, (Reported) Camelia WALLACE MOHS SURGEON Jan 06, 2019 17:03
[2019-01-06] MEDS: IPRATROPIUM 0.5MG/ALBUTEROL 2.5MG INH SOL UD 3ML (DUONEB)(J7620) NEB PRN (18:34)
[2019-01-06] MEDS: SENNA 8.6 MG TAB (SENOKOT) PO SCH (21:19)
[2019-01-06] MEDS: rOPINIRole 2MG TAB PO SCH (21:19)
[2019-01-06] MEDS: SIMVASTATIN 20 MG TAB PO SCH (21:19)
[2019-01-07] MEDS: IPRATROPIUM 0.5MG/ALBUTEROL 2.5MG INH SOL UD 3ML (DUONEB)(J7620) NEB SCH ×4 (03:31→20:55)
[2019-01-07] MEDS: PERCOCET 5MG/325MG TAB PO PRN ×5 (03:44→20:20)
[2019-01-07 05:52] LABS: ABG BASE EXCESS 11.6 (-2.0-2.0); ABG HCO3 38.2 MEQ/L (22.0-26.0); ABG O2 SATURATION 99.1 % (95.0-99.0); ABG PARTIAL PRESSURE O2 132.6 mmHg (75.0-100.0); ABG STANDARD HCO3 35.4 MEQ/L (22.0-26.0); ABG pH (ARTERIAL) 7.415 UNITS (7.350-7.450)
[2019-01-07 05:55] LABS: ABG PARTIAL PRESSURE CO2 60.9 mmHg (35.0-45.0)
[2019-01-07 06:00] VITALS: BP 124/80
[2019-01-07 06:14] LABS: HEMATOCRIT 36.7 % (36.0-47.0); MEAN CORPUSCULAR HEMOGLOBIN 28.6 pg (27.0-33.0); MEAN CORPUSCULAR VOLUME 95.3 fl (80.0-96.0); PLATELET COUNT, AUTOMATED 239 10^3/uL (150-450); RED BLOOD COUNT 3.85 10^6/uL (4.00-5.40); WHITE BLOOD COUNT 6.5 10^3/uL (4.0-10.0)
[2019-01-07 06:40] LABS: CALCIUM LEVEL 9.5 MG/DL (8.8-10.2); CREATININE FOR GFR 1.01 MG/DL (0.55-1.30); GLOMERULAR FILTRATION RATE 59.5 (>45); POTASSIUM SERUM 3.9 MEQ/L (3.5-5.1)
[2019-01-07] MEDS: ASPIRIN 81 MG ENTERIC TAB PO SCH (07:52)
[2019-01-07] MEDS: busPIRone 5 MG TAB PO SCH ×3 (07:52→20:19)
[2019-01-07] MEDS: MIDODRINE 5 MG TAB PO SCH ×3 (07:52→16:16)
[2019-01-07] MEDS: FOLIC ACID 1 MG TAB PO SCH (07:52)
[2019-01-07] MEDS: ALPRAZolam 0.5 MG TAB PO SCH ×2 (07:52→20:19)
[2019-01-07] MEDS: TORSEMIDE 20 MG TAB PO SCH (07:52)
[2019-01-07] MEDS: VITAMIN D 1,000 INTERNATIONAL UNITS TABLET PO SCH (07:53)
[2019-01-07] MEDS: methylPREDNISolone INJ 40 MG/1 ML VIAL (J2920) IV SCH (07:53)
[2019-01-07] MEDS: RIVAROXABAN 10 MG TAB (XARELTO) PO SCH (07:53)
[2019-01-07] MEDS: lamoTRIgine 100MG TAB PO SCH (07:53)
[2019-01-07] MEDS: ESCITALOPRAM OXALATE 10 MG TAB (LEXAPRO) PO SCH (07:53)
[2019-01-07] MEDS: IPRATROPIUM 0.5MG/ALBUTEROL 2.5MG INH SOL UD 3ML (DUONEB)(J7620) NEB PRN ×2 (11:24→15:53)
[2019-01-07 14:00] VITALS: BP 133/95
--- NOTE | 2019-01-07 19:52 | IPNPDOC ---
Subjective Date Seen The patient was seen on 01/07/19. Subjective Chief Complaint/HPI Follow-up COPD exacerbation and opiate dependence Events since last encounter Patient seen and examined at bedside. Patient appears very anxious. Says breathing is stable and near baseline. Denies fevers, chills, chest pain, nausea, vomiting, abdominal pain. Patient endorses bilateral leg pain Objective Physical Examination General Exam: Positive: Alert, Cooperative, Other (mildly tremulous) Chest Exam: Positive: Clear to auscultation, Normal air movement Heart Exam: Positive: Rate Normal, Normal S1, Normal S2 Abdomen Exam: Positive: Normal bowel sounds, Soft; Negative: Tenderness Extremity Exam: Positive: Normal pulses; Negative: Edema Skin Exam: Positive: Nl turgor and temperature Neuro Exam: Positive: Cranial Nerves 3-12 NL Psych Exam: Positive: Mental status NL, Anxiety, Oriented x 3 Assessment /Plan Assessment Patient is a 58-year-old female who presents for COPD exacerbation and found to have opiate dependence Plan/VTE VTE Prophylaxis Ordered?: Yes Plan 1. Acute respiratory failure - Resolved - She is near/at her baseline. -Her steroids were discontinued today as per pulm -appreciate pulm recs 2. Chronic pain syndrome with opiate dependence. -cont. opiates every 4 hour 3. Chronic anxiety. -Continue Lexapro, Xanax, and BuSpar. 4. Restless leg syndrome. -Continue Requip. 5. Orthostatic hypotension. -She used midodrine, which has been continued. 6. Seizure disorder. -Continue Lamictal. 7. History of deep venous thrombosis (DVT). -Continue her Xarelto, which is at the maintenance dose of 10 mg daily for long- term use. Disposition Likely home tomorrow after getting a home safety evaluation VS, I&O, 24H, Fishbone Vital Signs/I&O Vital Signs Date Time Temp Pulse Resp B/P (MAP) Pulse Ox O2 Delivery O2 Flow Rate FiO2 01/07/19 16:46 20 2.0 01/07/19 14:00 98.0 111 133/95 (108) 98 01/06/19 08:00 30 01/05/19 11:05 Nasal Cannula I&O- Last 24 Hours up to 6 AM 01/07/19 05:59 Intake Total 690 ml Output Total 0 ml Balance 690 ml Laboratory Data 24H LABS Laboratory Tests 2 01/07/19 05:28: Nucleated Red Blood Cells % (auto) 0.0, Anion Gap 3L, Glomerular Filtration Rate 59.5, Blood Urea Nitrogen 21H, Creatinine 1.01, Sodium Level 136, Potassium Level 3.9, Chloride Level 93L, Carbon Dioxide Level 40H, Calcium Level 9.5 01/07/19 05:42: Blood Gas Bicarbonate Standard 35.4H, Arterial Blood pH 7.415, Arterial Blood Partial Pressure CO2 60.9*H, Arterial Blood Partial Pressure O2 132.6H, Arterial Blood Total CO2 40.0H, Arterial Blood HCO3 38.2H, Arterial Blood Base Excess 11.6H, Arterial Blood Oxygen Saturation 99.1H CBC/BMP Laboratory Tests 01/07/19 05:28 Red Blood Count 3.85 L, Mean Corpuscular Volume 95.3, Mean Corpuscular Hemoglobin 28.6, Mean Corpuscular Hemoglobin Concent 30.0 L, Red Cell Distribution Width 14.6 H, Calcium Level 9.5 NEVA HOGAN MD Jan 07, 2019 19:52
[2019-01-07] MEDS: rOPINIRole 2MG TAB PO SCH (20:19)
[2019-01-07] MEDS: SIMVASTATIN 20 MG TAB PO SCH (20:19)
[2019-01-07] MEDS: SENNA 8.6 MG TAB (SENOKOT) PO SCH (20:20)
[2019-01-07 22:00] VITALS: BP 149/76
[2019-01-08] MEDS: PERCOCET 5MG/325MG TAB PO PRN ×5 (00:24→23:50)
[2019-01-08] MEDS: IPRATROPIUM 0.5MG/ALBUTEROL 2.5MG INH SOL UD 3ML (DUONEB)(J7620) NEB SCH ×4 (00:56→20:04)
[2019-01-08 06:00] VITALS: BP 143/81
[2019-01-08 06:15] LABS: HEMOGLOBIN 10.6 g/dl (12.0-15.5); MEAN CORPUSCULAR HEMOGLOBIN 28.2 pg (27.0-33.0); MEAN CORPUSCULAR HGB CONC 29.4 g/dl (32.0-36.5); MEAN CORPUSCULAR VOLUME 95.7 fl (80.0-96.0); PLATELET COUNT, AUTOMATED 234 10^3/uL (150-450); RED BLOOD COUNT 3.76 10^6/uL (4.00-5.40); WHITE BLOOD COUNT 6.9 10^3/uL (4.0-10.0)
[2019-01-08 06:31] LABS: CALCIUM LEVEL 9.2 MG/DL (8.8-10.2); CREATININE FOR GFR 1.03 MG/DL (0.55-1.30); GLOMERULAR FILTRATION RATE 58.2 (>45); POTASSIUM SERUM 3.9 MEQ/L (3.5-5.1)
[2019-01-08 06:55] LABS: ABG BASE EXCESS 15.2 (-2.0-2.0); ABG HCO3 42.1 MEQ/L (22.0-26.0); ABG O2 SATURATION 98.2 % (95.0-99.0); ABG STANDARD HCO3 39.1 MEQ/L (22.0-26.0); ABG pH (ARTERIAL) 7.435 UNITS (7.350-7.450)
[2019-01-08 06:59] LABS: ABG PARTIAL PRESSURE CO2 64.1 mmHg (35.0-45.0)
[2019-01-08] MEDS: VITAMIN D 1,000 INTERNATIONAL UNITS TABLET PO SCH (08:42)
[2019-01-08] MEDS: lamoTRIgine 100MG TAB PO SCH (08:43)
[2019-01-08] MEDS: ALPRAZolam 0.5 MG TAB PO SCH ×2 (08:43→20:24)
[2019-01-08] MEDS: MIDODRINE 5 MG TAB PO SCH ×3 (08:43→16:00)
[2019-01-08] MEDS: busPIRone 5 MG TAB PO SCH ×3 (08:44→20:23)
[2019-01-08] MEDS: RIVAROXABAN 10 MG TAB (XARELTO) PO SCH (08:44)
[2019-01-08] MEDS: ASPIRIN 81 MG ENTERIC TAB PO SCH (08:44)
[2019-01-08] MEDS: FOLIC ACID 1 MG TAB PO SCH (08:44)
[2019-01-08] MEDS: TORSEMIDE 20 MG TAB PO SCH (08:44)
[2019-01-08] MEDS: ESCITALOPRAM OXALATE 10 MG TAB (LEXAPRO) PO SCH (08:44)
[2019-01-08] MEDS ORDERED: PERCOCET 5MG/325MG TAB PO PRN (11:15)
[2019-01-08 14:00] VITALS: BP 139/87
--- NOTE | 2019-01-08 18:52 | IPNPDOC ---
Subjective Date Seen The patient was seen on 01/08/19. Subjective Chief Complaint/HPI Follow-up COPD exacerbation and opiate dependence Events since last encounter Patient seen and examined at bedside. Patient is breathing back to baseline. Patient feeling well. Denies any complaints including fever, chills, chest pain, worsened SOB, nausea, vomiting, diarrhea. Objective Physical Examination General Exam: Positive: Alert, Cooperative, No Acute Distress, Other (mildly tremulous) Chest Exam: Positive: Wheezing (minimal ) Heart Exam: Positive: Rate Normal, Normal S1, Normal S2 Abdomen Exam: Positive: Normal bowel sounds, Soft; Negative: Tenderness Extremity Exam: Positive: Normal pulses; Negative: Edema Skin Exam: Positive: Nl turgor and temperature Neuro Exam: Positive: Cranial Nerves 3-12 NL Psych Exam: Positive: Mental status NL, Anxiety, Oriented x 3 Assessment /Plan Assessment Patient is a 58-year-old female presenting with COPD exacerbation and opiate dependence Plan/VTE VTE Prophylaxis Ordered?: Yes Plan . Acute respiratory failure - Resolved - She is at her baseline. -Her steroids were discontinued today as per pulm -appreciate pulm recs -pt with elevated 60 but appears to be baseline for her and well compensated 2. Chronic pain syndrome with opiate dependence. -cont. opiates every 5 hours -suspect some element of oversedation leading for mild elevation in pCO2 3. Chronic anxiety. -Continue Lexapro, Xanax, and BuSpar. 4. Restless leg syndrome. -Continue Requip. 5. Orthostatic hypotension. -She used midodrine, which has been continued. 6. Seizure disorder. -Continue Lamictal. 7. History of deep venous thrombosis (DVT). -Continue her Xarelto, which is at the maintenance dose of 10 mg daily for long- term use. Disposition plan for discharge tomorrow VS, I&O, 24H, Fishbone Vital Signs/I&O Vital Signs Date Time Temp Pulse Resp B/P (MAP) Pulse Ox O2 Delivery O2 Flow Rate FiO2 01/08/19 18:42 22 01/08/19 14:00 97.8 95 139/87 (104) 93 2.0 01/06/19 08:00 30 01/05/19 11:05 Nasal Cannula I&O- Last 24 Hours up to 6 AM 01/08/19 06:00 Intake Total 1705 ml Output Total 850 ml Balance 855 ml Laboratory Data 24H LABS Laboratory Tests 2 01/08/19 05:32: Nucleated Red Blood Cells % (auto) 0.0, Anion Gap 2L, Glomerular Filtration Rate 58.2, Blood Urea Nitrogen 25H, Creatinine 1.03, Sodium Level 141, Potassium Level 3.9, Chloride Level 97L, Carbon Dioxide Level 42H, Calcium Level 9.2 01/08/19 06:29: Blood Gas Bicarbonate Standard 39.1H, Arterial Blood pH 7.435, Arterial Blood Partial Pressure CO2 64.1*H, Arterial Blood Partial Pressure O2 103.0H, Arterial Blood Total CO2 44.0H, Arterial Blood HCO3 42.1H, Arterial Blood Base Excess 15.2H, Arterial Blood Oxygen Saturation 98.2 CBC/BMP Laboratory Tests 01/08/19 05:32 Red Blood Count 3.76 L, Mean Corpuscular Volume 95.7, Mean Corpuscular Hemoglobin 28.2, Mean Corpuscular Hemoglobin Concent 29.4 L, Red Cell Distribution Width 14.6 H, Calcium Level 9.2 NEVA HOGAN MD Jan 08, 2019 18:52
[2019-01-08] MEDS: SENNA 8.6 MG TAB (SENOKOT) PO SCH (20:24)
[2019-01-08] MEDS: SIMVASTATIN 20 MG TAB PO SCH (20:24)
[2019-01-08] MEDS: rOPINIRole 2MG TAB PO SCH (20:28)
[2019-01-08 22:00] VITALS: BP 137/74
[2019-01-08] MEDS: IPRATROPIUM 0.5MG/ALBUTEROL 2.5MG INH SOL UD 3ML (DUONEB)(J7620) NEB PRN (23:25)
[2019-01-09] MEDS: IPRATROPIUM 0.5MG/ALBUTEROL 2.5MG INH SOL UD 3ML (DUONEB)(J7620) NEB SCH ×4 (01:56→20:28)
[2019-01-09] MEDS: IPRATROPIUM 0.5MG/ALBUTEROL 2.5MG INH SOL UD 3ML (DUONEB)(J7620) NEB PRN (03:08)
[2019-01-09] MEDS: PERCOCET 5MG/325MG TAB PO PRN ×4 (04:59→20:08)
[2019-01-09 06:00] VITALS: BP 136/87
[2019-01-09 06:10] LABS: HEMATOCRIT 34.8 % (36.0-47.0); HEMOGLOBIN 10.4 g/dl (12.0-15.5); MEAN CORPUSCULAR HEMOGLOBIN 28.3 pg (27.0-33.0); MEAN CORPUSCULAR HGB CONC 29.9 g/dl (32.0-36.5); MEAN CORPUSCULAR VOLUME 94.6 fl (80.0-96.0); PLATELET COUNT, AUTOMATED 235 10^3/uL (150-450); RED BLOOD COUNT 3.68 10^6/uL (4.00-5.40); WHITE BLOOD COUNT 7.9 10^3/uL (4.0-10.0)
[2019-01-09 06:40] LABS: CALCIUM LEVEL 9.3 MG/DL (8.8-10.2); CREATININE FOR GFR 1.01 MG/DL (0.55-1.30); GLOMERULAR FILTRATION RATE 59.5 (>45); POTASSIUM SERUM 3.9 MEQ/L (3.5-5.1)
[2019-01-09] MEDS: MIDODRINE 5 MG TAB PO SCH ×3 (08:00→16:00)
[2019-01-09] MEDS: busPIRone 5 MG TAB PO SCH ×3 (08:10→20:07)
[2019-01-09] MEDS: RIVAROXABAN 10 MG TAB (XARELTO) PO SCH (08:10)
[2019-01-09] MEDS: ESCITALOPRAM OXALATE 10 MG TAB (LEXAPRO) PO SCH (08:10)
[2019-01-09] MEDS: ASPIRIN 81 MG ENTERIC TAB PO SCH (08:10)
[2019-01-09] MEDS: lamoTRIgine 100MG TAB PO SCH (08:10)
[2019-01-09] MEDS: ALPRAZolam 0.5 MG TAB PO SCH ×2 (08:10→20:07)
[2019-01-09] MEDS: VITAMIN D 1,000 INTERNATIONAL UNITS TABLET PO SCH (08:11)
[2019-01-09] MEDS: TORSEMIDE 20 MG TAB PO SCH (08:11)
[2019-01-09] MEDS: FOLIC ACID 1 MG TAB PO SCH (08:11)
--- NOTE | 2019-01-09 12:15 | IPNPDOC ---
Subjective Date Seen The patient was seen on 01/09/19. Subjective Chief Complaint/HPI Follow-up COPD exacerbation and opiate dependence Events since last encounter Patient seen and examined at bedside. Patient doing well today. Breathing stable and at baseline, patient satting high 90s on 1 L NC. Patient tolerating Q5 hour Percocet. Denies fevers, chills, chest pain, worsened SOB, nausea, vomiting, abdominal pain, leg swelling. Patient failed PT today Objective Physical Examination General Exam: Positive: Alert, Cooperative, No Acute Distress, Other (mildly tremulous) Chest Exam: Positive: Wheezing (scattered) Heart Exam: Positive: Rate Normal, Normal S1, Normal S2 Abdomen Exam: Positive: Normal bowel sounds, Soft; Negative: Tenderness Extremity Exam: Positive: Normal pulses; Negative: Edema Skin Exam: Positive: Nl turgor and temperature Neuro Exam: Positive: Normal Speech Psych Exam: Positive: Mental status NL, Anxiety, Oriented x 3 Assessment /Plan Assessment Patient is a 58-year-old female who presented with COPD exacerbation and opioid dependence Plan/VTE VTE Prophylaxis Ordered?: Yes Plan 1. Acute respiratory failure - Resolved - She is at her baseline and even improved as she is satting in the high 90's on 1L NC -Her steroids were discontinued as per pulm -appreciate pulm recs -pt well compensated from a respiratory standpoint 2. Chronic pain syndrome with opiate dependence. -cont. opiates every 5 hours, pt seems to be tolerating for now -suspect some element of oversedation leading for mild elevation in pCO2 3. Chronic anxiety. -Continue Lexapro, Xanax, and BuSpar. 4. Restless leg syndrome. -Continue Requip. 5. Orthostatic hypotension. -She used midodrine, which has been continued. 6. Seizure disorder. -Continue Lamictal. 7. History of deep venous thrombosis (DVT). -Continue her Xarelto, which is at the maintenance dose of 10 mg daily for long-term use. Disposition Home likely tomorrow assuming pt passes PT VS, I&O, 24H, Fishbone Vital Signs/I&O Vital Signs Date Time Temp Pulse Resp B/P (MAP) Pulse Ox O2 Delivery O2 Flow Rate FiO2 01/09/19 10:52 22 01/09/19 10:02 1.0 01/09/19 06:00 96.9 101 136/87 (103) 97 01/06/19 08:00 30 01/05/19 11:05 Nasal Cannula I&O- Last 24 Hours up to 6 AM 01/09/19 05:59 Intake Total 2040 ml Output Total 1125 ml Balance 915 ml Laboratory Data 24H LABS Laboratory Tests 2 01/09/19 05:59: Nucleated Red Blood Cells % (auto) 0.0, Anion Gap 4L, Glomerular Filtration Rate 59.5, Blood Urea Nitrogen 19H, Creatinine 1.01, Sodium Level 138, Potassium Level 3.9, Chloride Level 96L, Carbon Dioxide Level 38H, Calcium Level 9.3 CBC/BMP Laboratory Tests 01/09/19 05:59 Red Blood Count 3.68 L, Mean Corpuscular Volume 94.6, Mean Corpuscular Hemoglobin 28.3, Mean Corpuscular Hemoglobin Concent 29.9 L, Red Cell Distribution Width 14.6 H, Calcium Level 9.3 NEVA HOGAN MD Jan 09, 2019 12:15
[2019-01-09 14:00] VITALS: BP 138/100
[2019-01-09 20:00] VITALS: BP 141/78
[2019-01-09] MEDS: rOPINIRole 2MG TAB PO SCH (20:07)
[2019-01-09] MEDS: SENNA 8.6 MG TAB (SENOKOT) PO SCH (20:07)
[2019-01-09] MEDS: SIMVASTATIN 20 MG TAB PO SCH (20:07)
[2019-01-10] MEDS: IPRATROPIUM 0.5MG/ALBUTEROL 2.5MG INH SOL UD 3ML (DUONEB)(J7620) NEB SCH ×2 (00:31→07:41)
[2019-01-10] MEDS: PERCOCET 5MG/325MG TAB PO PRN ×3 (01:04→11:15)
[2019-01-10] MEDS: IPRATROPIUM 0.5MG/ALBUTEROL 2.5MG INH SOL UD 3ML (DUONEB)(J7620) NEB PRN (05:09)
[2019-01-10 06:00] VITALS: BP 136/90
[2019-01-10 06:02] LABS: HEMATOCRIT 36.8 % (36.0-47.0); MEAN CORPUSCULAR HEMOGLOBIN 27.7 pg (27.0-33.0); MEAN CORPUSCULAR HGB CONC 29.9 g/dl (32.0-36.5); MEAN CORPUSCULAR VOLUME 92.7 fl (80.0-96.0); PLATELET COUNT, AUTOMATED 285 10^3/uL (150-450); RED BLOOD COUNT 3.97 10^6/uL (4.00-5.40); WHITE BLOOD COUNT 9.3 10^3/uL (4.0-10.0)
[2019-01-10 06:30] LABS: CALCIUM LEVEL 9.6 MG/DL (8.8-10.2); CREATININE FOR GFR 1.04 MG/DL (0.55-1.30); GLOMERULAR FILTRATION RATE 57.5 (>45); POTASSIUM SERUM 4.2 MEQ/L (3.5-5.1)
[2019-01-10] MEDS: MIDODRINE 5 MG TAB PO SCH (08:00)
[2019-01-10] MEDS: VITAMIN D 1,000 INTERNATIONAL UNITS TABLET PO SCH (08:09)
[2019-01-10] MEDS: busPIRone 5 MG TAB PO SCH (08:09)
[2019-01-10] MEDS: ESCITALOPRAM OXALATE 10 MG TAB (LEXAPRO) PO SCH (08:09)
[2019-01-10] MEDS: FOLIC ACID 1 MG TAB PO SCH (08:10)
[2019-01-10] MEDS: ASPIRIN 81 MG ENTERIC TAB PO SCH (08:10)
[2019-01-10] MEDS: lamoTRIgine 100MG TAB PO SCH (08:10)
[2019-01-10] MEDS: ALPRAZolam 0.5 MG TAB PO SCH (08:11)
[2019-01-10] MEDS: RIVAROXABAN 10 MG TAB (XARELTO) PO SCH (08:11)
[2019-01-10] MEDS: TORSEMIDE 20 MG TAB PO SCH (08:11)
--- NOTE | 2019-01-10 17:01 | DS.PDOC ---
Discharge Summary General Date of Admission Jan 05, 2019 at 14:40 Date of Discharge 01/10/19 Specialist/Consultants Involve Dr. Perez and Dr. Maloney of Pulmonary, Camelia CAROP of palliative care Discharge Summary PROCEDURES PERFORMED DURING STAY: None. ADMITTING/DISCHARGE DIAGNOSES: COPD Exacerbation Chronic pain syndrome with opiate dependence Chronic Anxiety Restless Leg syndrome COMPLICATIONS/CHIEF COMPLAINT: Acute Or Chronic Respiratory Failure W/ Hypercapni. HISTORY OF PRESENT ILLNESS: . 58-year-old female with past medical history of chronic obstructive pulmonary disease on 2 L of oxygen at baseline, DVT and PE, iron deficiency anemia, hypertension, GERD, anxiety, and diastolic congestive heart failure presented to the ER with a chief complaint of increased shortness of breath. She was admitted with the diagnosis of COPD exacerbation and initially started on IV Steroids. She was seen by pulmonary and her medical treatment was optimized. At this time, she states that she is feeling much better and is eager to return home. She has been cleared by physical therapy to do so. I've advised the patient follow-up with her primary care physician within 7 days. Lastly, the patient has been advised to return to the ER for any acute emergencies. DISCHARGE MEDICATIONS: Please see below. ALLERGIES: Please see below. PHYSICAL EXAMINATION ON DISCHARGE: VITAL SIGNS: Please see below. General Exam: Positive: Alert, Cooperative, No Acute Distress, Other (mildly tremulous) Chest Exam: Positive: Diminished Heart Exam: Positive: Rate Normal, Normal S1, Normal S2 Abdomen Exam: Positive: Normal bowel sounds, Soft; Negative: Tenderness Extremity Exam: Positive: Normal pulses; Negative: Edema Skin Exam: Positive: Nl turgor and temperature Neuro Exam: Positive: Normal Speech Psych Exam: Positive: Mental status NL, Anxiety, Oriented x 3 LABORATORY DATA: Please see below. IMAGING: CHEST, SINGLE VIEW: Single view of the chest is performed and compared to a prior study 12/14/2018. There is mild linear fibroatelectatic change in each lung base. There is no evidence of acute infiltrate. The heart is slightly prominent but unchanged. Mediastinal silhouette is unchanged. IMPRESSION: Mild fibroatelectatic changes without acute infiltrate. PROGNOSIS: Fair ACTIVITY: As tolerated. DIET: COPD diet DISCHARGE PLAN: DISPOSITION: Home Health Service. DISCHARGE INSTRUCTIONS: Follow-up with primary care physician within 7 days. Return to the ER for any acute emergencies. DISCHARGE CONDITION: Stable. TIME SPENT ON DISCHARGE: Greater than 30 minutes. Vital Signs/I&Os Vital Signs Date Time Temp Pulse Resp B/P (MAP) Pulse Ox O2 Delivery O2 Flow Rate FiO2 01/10/19 11:45 20 94 1.0 01/10/19 06:00 97.1 115 136/90 (105) 01/06/19 08:00 30 01/05/19 11:05 Nasal Cannula I&O- Last 24 Hours up to 6 AM 01/10/19 05:59 Intake Total 970 ml Output Total 325 ml Balance 645 ml Laboratory Data Labs 24H Laboratory Tests 2 01/10/19 05:45: Nucleated Red Blood Cells % (auto) 0.0, Anion Gap 5L, Glomerular Filtration Rate 57.5, Blood Urea Nitrogen 16, Creatinine 1.04, Sodium Level 137, Potassium Level 4.2, Chloride Level 98, Carbon Dioxide Level 34H, Calcium Level 9.6 CBC/BMP Laboratory Tests 01/10/19 05:45 Red Blood Count 3.97 L, Mean Corpuscular Volume 92.7, Mean Corpuscular Hemoglobin 27.7, Mean Corpuscular Hemoglobin Concent 29.9 L, Red Cell Distribution Width 14.6 H, Calcium Level 9.6 Discharge Medications Scheduled Alprazolam (Alprazolam) 0.5 Mg Tablet, 0.5 MG PO BID, (Reported) Aspirin (Aspirin EC) 81 Mg Tabec, 81 MG PO DAILY, (Reported) Buspirone HCl (Buspirone HCl) 5 Mg Tablet, 5 MG PO TID, (Reported) Cholecalciferol (Vitamin D3) (Vitamin D3) 2,000 Unit Tab, 2,000 UNIT PO DAILY, (Reported) Escitalopram Oxalate (Escitalopram Oxalate) 20 Mg Tab, 20 MG PO DAILY, (Reported) Ferrous Sulfate (Ferrous Sulfate) 325 Mg Tab, 325 MG PO DAILY, (Reported) Fluticasone/Vilanterol (Breo Ellipta 200-25 Mcg INH) 1 Inh Inh, 1 PUFF INH DAILY, (Reported) Folic Acid (Folic Acid) 1 Mg Tab, 1 MG PO DAILY, (Reported) Lamotrigine (Lamotrigine) 150 Mg Tab, 150 MG PO DAILY, (Reported) Midodrine HCl (Midodrine HCl) 5 Mg Tablet, 5 MG PO TID, (Reported) 0800/1200/1600 Omeprazole (Omeprazole) 40 Mg Cap, 40 MG PO BID, (Reported) Rivaroxaban (Xarelto) 10 Mg Tab, 10 MG PO DAILY, (Reported) Ropinirole HCl (Ropinirole HCl) 2 Mg Tablet, 2 MG PO QHS, (Reported) Sennosides (Senna Lax) 8.6 Mg Tablet, 2 TAB PO QHS, (Reported) Simvastatin (Zocor) 20 Mg Tab, 20 MG PO QHS, (Reported) Torsemide (Torsemide) 20 Mg Tablet, 20 MG PO DAILY, (Reported) Scheduled PRN Albuterol Sulf (Albuterol Sulfate) 2.5 Mg/3 Ml Vial.neb, 2.5 MG INH Q4H PRN for SHORTNESS OF BREATH, (Reported) Albuterol Sulfate (Ventolin Hfa) 108 Mcg/Act Aer, 2 PUFF INH Q4H PRN for SHORTNE SS OF BREATH, (Reported) Nitroglycerin (Nitrostat) 0.4 Mg Subl, 0.4 MG SL NITRO PRN for CHEST PAIN, (Reported) Ondansetron HCl (Ondansetron HCl) 4 Mg Tab, 4 MG PO Q6H PRN for NAUSEA, (Reported) Oxycodone HCl/Acetaminophen (Percocet 5-325 mg Tablet) 1 Tab Tab, 1 TAB PO Q6H PRN for PAIN, (Reported) Allergies Coded Allergies: morphine (Verified Allergy, Severe, SOB, itching, rash, 11/15/18) Penicillins (Verified Allergy, Intermediate, Hives, 11/15/18) Quinolones (Verified Allergy, Intermediate, Hives, 11/15/18) Sulfa (Sulfonamide Antibiotics) (Verified Allergy, Intermediate, Hives, 11/15/18) cephalexin (Verified Allergy, Intermediate, Hives, 11/15/18) clavulanic acid (Verified Allergy, Intermediate, Hives, 11/15/18) erythromycin base (Verified Allergy, Intermediate, Hives, 11/15/18) moxifloxacin (Verified Allergy, Intermediate, Hives, 11/15/18) methylprednisolone (Verified Allergy, Mild, RASH WITH IV, 11/15/18) levofloxacin (Verified Allergy, Unknown, 11/15/18) iodine (Verified Adverse Reaction, Intermediate, Acute renal insufficiency , 11/15/18) iopamidol (Verified Adverse Reaction, Intermediate, Acute renal insufficiency, 11/15/18) gabapentin (Verified Adverse Reaction, Mild, Upset stomach, 11/15/18) NAVID ELLIOTT MD Jan 10, 2019 17:01
== END 2019-01-10 12:36 | disposition home health service (06) | DRG 812 ==
LOC: M ED 10:58 → EDBD 10:58 → M ED INP 14:40 → M ICU 15:45 → M MSPAV 01-06 14:15
PROVIDERS: ADMIT Family Medicine; ATTEND Internal Medicine
DX: T42.4X1A Poisoning by benzodiazepines, accidental (unintentional), initial encounter (principal); J96.22 Acute and chronic respiratory failure with hypercapnia; I50.32 Chronic diastolic (congestive) heart failure; I95.9 Hypotension, unspecified; Z68.41 Body mass index [BMI] 40.0-44.9, adult; J44.1 Chronic obstructive pulmonary disease with (acute) exacerbation; E66.01 Morbid (severe) obesity due to excess calories; G25.81 Restless legs syndrome; G89.29 Other chronic pain; F11.20 Opioid dependence, uncomplicated; F41.9 Anxiety disorder, unspecified; K21.9 Gastro-esophageal reflux disease without esophagitis; D50.9 Iron deficiency anemia, unspecified; Z86.718 Personal history of other venous thrombosis and embolism; Z86.711 Personal history of pulmonary embolism; Z79.899 Other long term (current) drug therapy; Z79.82 Long term (current) use of aspirin; Z88.0 Allergy status to penicillin; Z88.5 Allergy status to narcotic agent; Z88.2 Allergy status to sulfonamides; Z88.8 Allergy status to other drugs, medicaments and biological substances; G40.909 Epilepsy, unspecified, not intractable, without status epilepticus; Y92.009 Unspecified place in unspecified non-institutional (private) residence as the place of occurrence of the external cause

== ENCOUNTER 2019-01-19 12:38 | Observation (INO) | payer OTHER ==
[~2019-01-19] VITALS: Ht 162.6 cm; Wt 108.8 kg
[~2019-01-19 12:38] MED LIST changes: +ALBU83IN INH
[2019-01-19] MEDS ORDERED: PERCOCET 5MG/325MG TAB PO ONE ×2 (13:30→16:45)
--- NOTE | 2019-01-19 14:18 | REP ---
Clinical: Trauma. Technique: AP, lateral, bilateral oblique views of the left foot. Findings: Lateral view best demonstrates significant soft tissue swelling over the metatarsal and metatarsophalangeal region. Underlying osteopenia and degenerative changes are appreciated. Subtle fracture at the head of the metatarsal bones as well as nondisplaced fracture at the base of the second and fifth proximal phalanges cannot be excluded. Impression: Osteopenia and degenerative changes. Significant swelling. Cannot exclude nondisplaced fractures as described above. Electronically Signed by Lee Wolf MD 01/19/2019 02:10 P
--- NOTE | 2019-01-19 16:11 | REP ---
Clinical: Trauma. Swelling. Possible fracture on x-ray. Technique: Axial noncontrast images of the foot with coronal and sagittal re-formations. Comparison: 02/25/2018 Findings: Significant osteopenia and advanced arthritic degenerative changes are appreciated which limit evaluation for subtle injury. Suspected fractures at the head of the second through fourth metatarsal bones on recent x-ray are compatible with old fractures as identified on CT dated 02/25/2018. No definite acute fractures appreciated. No further acute fracture or dislocation is otherwise identified or suspected. Extensive post traumatic infiltration is appreciated along with 4.1 x 1.8 x 4.5 cm suspected hematoma in the subcutaneous tissues overlying the second through fourth metatarsal bones and consistent with the given history of trauma. Impression: 1. Limited by osteopenia and advanced degenerative changes. Suspected nondisplaced fractures at the heads of the second through fourth metatarsal bones are consistent with old, previously diagnosed fractures based on CT dated 02/25/2018. 2. Hematoma in the subcutaneous tissues overlying the second through fourth metatarsal bones. Electronically Signed by Lee Wolf MD 01/19/2019 04:01 P
[2019-01-19] MEDS ORDERED: ACETAMINOPHEN TAB 650MG DOSE (2X325MG) PO PRN (18:15)
--- NOTE | 2019-01-19 18:47 | HPE ---
DATE OF ADMISSION: 01/19/2019 CHIEF COMPLAINT: Status post fall. HISTORY OF PRESENT ILLNESS: This is a 58-year-old female with past medical history of end-stage chronic obstructive pulmonary disease (COPD) on home oxygen, congestive heart failure, low blood pressures, prior history of deep venous thrombosis (DVT) on Xarelto, hyperlipidemia, who presents with chief complaint status post fall. Patient reports that she was trying to sit on her commode and then instead sat on the arm rest portion and fell on her ankle. She is in severe pain. She failed a trial of ambulation in the emergency room (ER). Pain is controlled with Percocet; however, when she ambulates, she has significant pain. She is declining any rehabilitation replacement. She does have a home health aide that is with her during the daytime hours until 9 p.m. At this point, she is a fall risk if she were to go back home; however, patient is declining rehabilitation. Currently, she says her pain is controlled and she received two doses of Percocet in the ER. REVIEW OF SYSTEMS: Negative for 14 out of 14 systems except as noted above. PAST MEDICAL HISTORY: As above in history of present illness (HPI). PAST SURGICAL HISTORY: She has a history of: 1. Hip replacement. 2. Right foot surgery. MEDICATIONS: Patient's home medications include: - albuterol 2.5 mg every 4 hours as needed for shortness of breath - Xanax 0.5 mg by mouth twice a day - aspirin 81 mg daily - buspirone 5 mg by mouth three times a day - Lexapro 20 mg daily - ferrous sulfate 325 mg by mouth daily - folic acid 1 mg by mouth daily - midodrine 5 mg by mouth three times a day - Prilosec 40 mg by mouth twice a day - Zofran 4 mg every 6 hours as needed nausea - Percocet 5/325 every 4 hours as needed for pain - Xarelto 10 mg by mouth daily - Requip 2 mg by mouth at bedtime - Breo once daily - Senna two tablets at bedtime - Zocor 20 mg at bedtime - torsemide 20 mg daily - vitamin D 2000 units by mouth daily - Lamictal 150 mg by mouth daily ALLERGIES: She is allergic to: PENICILLINS, QUINOLONES, SULFA, CEPHALEXIN, CLAVULANIC ACID, ERYTHROMYCIN, GABAPENTIN, IODINE, LEVOFLOXACIN, SOLU-MEDROL, MORPHINE. SOCIAL HISTORY: She is . She has three adult children. She was a very heavy smoker with two pack per day smoking since she has been 12 years old and quit eight years ago. FAMILY HISTORY: She has a mother with bone cancer and father had throat and lung cancer. PHYSICAL EXAMINATION: On exam, she is currently afebrile, temperature 98, blood pressure 136/62, pulse is 100, respiratory rate 20, saturating 97% on room air. GENERAL: She looks uncomfortable from pain and she is obese. HEENT: Oropharynx clear. CARDIOVASCULAR: Regular rate and rhythm. No murmurs, rubs or gallops. LUNGS: Distant breath sounds, but clear. ABDOMEN: Obese, soft, nontender, nondistended. EXTREMITIES: No clubbing, cyanosis or edema. Her left ankle is in a soft brace. She does have tenderness to palpation in the area. NEUROLOGIC: She is alert and oriented times three. No focal neurologic deficits. PSYCHOLOGIC: Mood stable. LABORATORY DATA: Reveal a white count 9.3, hemoglobin 11, platelets of 285. Chemistry shows a creatinine of 1.04, potassium of 4.2. IMAGING: She did have CT done on her left foot, which shows limited osteopenia and advanced degenerative changes. Suspect nondisplaced fractures at the heads of the second through fourth metatarsal bones and are consistent with old, previously diagnosed fractures based on CT dated 02/25/2018. There is hematoma on the subcutaneous tissue overlying the second through fourth metatarsal bones. She also had a foot x-ray on admission that shows osteopenia with degenerative changes. Cannot exclude nondisplaced fractures. There is significant swelling. ASSESSMENT AND PLAN: This is a 58-year-old female with past medical history of end-stage chronic obstructive pulmonary disease (COPD) on home oxygen, congestive heart failure, who presents status post fall with left ankle injury. PROBLEMS: 1. Left ankle injury. It looks like second to fourth metatarsals are possibly fractured. The imaging suggests this may have possibly been old. The emergency room spoke to orthopedics and they said there is nothing to do for this for now. She should follow up with their office as an outpatient. She is adamantly declining any rehabilitation and wants to go home with her home physical therapy (PT) and occupational therapy (OT), which she already has set up. She did fail a trial of ambulation in the ER and it was deemed that she is probably unsafe for home. Will have PT see her tomorrow, but likely she will just go home with PT, as patient is declining rehabilitation. 2. History of deep venous thrombosis (DVT). Continue her home Xarelto. 3. History of chronic hypoxemic respiratory failure/COPD. Her respiratory status seems to be stable at this time. No changes to her home inhalers. She does not appear to be in any kind of exacerbation. 4. Hyperlipidemia. Continue home Zocor. 5. History of congestive heart failure (CHF). Continue home torsemide. 6. History of low blood pressures. Continue home midodrine. 7. Patient is FULL CODE.
[2019-01-19] MEDS: PERCOCET 5MG/325MG TAB PO PRN (21:15)
[2019-01-19 21:19] VITALS: BP 156/84
[2019-01-19 22:00] VITALS: BP 150/80
[2019-01-19] MEDS: MIDODRINE 5 MG TAB PO SCH (23:19)
[2019-01-19] MEDS: OMEPRAZOLE 20 MG CAP PO SCH (23:19)
[2019-01-19] MEDS: rOPINIRole 2MG TAB PO SCH (23:19)
[2019-01-19] MEDS: SIMVASTATIN 20 MG TAB PO SCH (23:19)
[2019-01-19] MEDS: ALPRAZolam 0.5 MG TAB PO SCH (23:19)
[2019-01-19] MEDS: busPIRone 5 MG TAB PO SCH (23:19)
[2019-01-19] MEDS: SENNA 8.6 MG TAB (SENOKOT) PO SCH (23:19)
[2019-01-20 02:00] VITALS: BP 154/88
[2019-01-20] MEDS: PERCOCET 5MG/325MG TAB PO PRN ×6 (02:09→22:54)
[2019-01-20] MEDS: NYSTATIN 100,000 UNITS/GM TOPICAL PWD 15 GM TOP SCH ×3 (02:45→20:31)
[2019-01-20 05:19] LABS: HEMATOCRIT 39.9 % (36.0-47.0); HEMOGLOBIN 11.4 g/dl (12.0-15.5); MEAN CORPUSCULAR HEMOGLOBIN 27.7 pg (27.0-33.0); MEAN CORPUSCULAR HGB CONC 28.6 g/dl (32.0-36.5); MEAN CORPUSCULAR VOLUME 97.1 fl (80.0-96.0); PLATELET COUNT, AUTOMATED 283 10^3/uL (150-450); RED BLOOD COUNT 4.11 10^6/uL (4.00-5.40); WHITE BLOOD COUNT 8.1 10^3/uL (4.0-10.0)
[2019-01-20 05:32] LABS: BLOOD UREA NITROGEN 8 MG/DL (7-18); CALCIUM LEVEL 9.2 MG/DL (8.8-10.2); CARBON DIOXIDE LEVEL 34 MEQ/L (21-32); CHLORIDE LEVEL 103 MEQ/L (98-107); CREATININE FOR GFR 0.96 MG/DL (0.55-1.30); GLOMERULAR FILTRATION RATE > 60.0 (>45); GLUCOSE, FASTING 87 MG/DL (70-100); SODIUM LEVEL 141 MEQ/L (136-145)
[2019-01-20 06:00] VITALS: BP 145/89
[2019-01-20] MEDS: ALBUTEROL SULFATE 2.5 MG/0.5 ML INH NEB SOLN NEB PRN ×3 (07:28→15:54)
[2019-01-20] MEDS: ADVAIR HFA 230/21MCG INHALER INH SCH ×2 (07:28→19:59)
[2019-01-20] MEDS ORDERED: PILL CUTTER 1 EACH XX PRN (07:45)
[2019-01-20] MEDS: FERROUS SULFATE 325MG TAB PO SCH (08:23)
[2019-01-20] MEDS: ESCITALOPRAM OXALATE 10 MG TAB (LEXAPRO) PO SCH (08:23)
[2019-01-20] MEDS: OMEPRAZOLE 20 MG CAP PO SCH ×2 (08:23→20:30)
[2019-01-20] MEDS: ALPRAZolam 0.5 MG TAB PO SCH (08:23)
[2019-01-20] MEDS: VITAMIN D 1,000 INTERNATIONAL UNITS TABLET PO SCH (08:23)
[2019-01-20] MEDS: RIVAROXABAN 10 MG TAB (XARELTO) PO SCH (08:23)
[2019-01-20] MEDS: FOLIC ACID 1 MG TAB PO SCH (08:23)
[2019-01-20] MEDS: TORSEMIDE 20 MG TAB PO SCH (08:23)
[2019-01-20] MEDS: ASPIRIN 81 MG ENTERIC TAB PO SCH (08:24)
[2019-01-20] MEDS: lamoTRIgine 100MG TAB PO SCH (08:24)
[2019-01-20] MEDS: busPIRone 5 MG TAB PO SCH ×3 (08:24→20:30)
[2019-01-20] MEDS: MIDODRINE 5 MG TAB PO SCH ×3 (08:59→20:30)
[2019-01-20] MEDS ORDERED: LAMICTAL 150 MG PO SCH (09:00)
[2019-01-20 09:54] LABS: ABG BASE EXCESS 2.1 (-2.0-2.0); ABG HCO3 29.7 MEQ/L (22.0-26.0); ABG PARTIAL PRESSURE O2 58.7 mmHg (75.0-100.0); ABG STANDARD HCO3 26.1 MEQ/L (22.0-26.0); ABG TOTAL CO2 31.5 MEQ/L (23.0-31.0); ABG pH (ARTERIAL) 7.304 UNITS (7.350-7.450)
[2019-01-20 09:55] LABS: ABG PARTIAL PRESSURE CO2 61.1 mmHg (35.0-45.0)
[2019-01-20 10:00] VITALS: BP 138/74
[2019-01-20 14:00] VITALS: BP 130/82
[2019-01-20 15:50] LABS: ABG HCO3 29.4 MEQ/L (22.0-26.0); ABG O2 SATURATION 89.8 % (95.0-99.0); ABG PARTIAL PRESSURE CO2 59.1 mmHg (35.0-45.0); ABG PARTIAL PRESSURE O2 57.5 mmHg (75.0-100.0); ABG STANDARD HCO3 26.1 MEQ/L (22.0-26.0); ABG TOTAL CO2 31.2 MEQ/L (23.0-31.0); ABG pH (ARTERIAL) 7.314 UNITS (7.350-7.450)
[2019-01-20] MEDS ORDERED: KETOROLAC 30 MG/ML VIAL (J1885) IV PRN (16:45)
--- NOTE | 2019-01-20 16:52 | IPNPDOC ---
Date Seen The patient was seen on 01/20/19. Progress Note SUBJECTIVE: health aid reports she appears more lethargic than usual insists that she wont go to rehab reports ankle pain improved OBJECTIVE PHYSICAL EXAMINATION: VITAL SIGNS: Please see below. GENERAL: occasionally falls asleep during covnersation RESPIRATORY: decreased BSs but clear EXTREMITIES: L ankle in brace Suspected # old nondisplaced fractures at the heads of the second through fourth metatarsal bones #L foot hematoma #Hx of COPD/Chronic hypoxemic respiratory failure #Hx of DVT #HL #Hx of Hypotension - per Ortho patient can weight bear and should f/u in their office post discharge, no surgical intervention - check ABG given health aid reporting she is altered, pco2 = 62 - pulm consult, dr ruiz prelim recs include minimizing pain meds/anxiolytics that suppress respiratory drive - decrease o2 to maintain sats between 89-91%; pt overuses oxygen - dc percocet 2 tabs and reduce xanax to 0.25mg - cont home xarelto - PT consult VS, I&O, 24H, Fishbone Vital Signs/I&O Vital Signs Date Time Temp Pulse Resp B/P (MAP) Pulse Ox O2 Delivery O2 Flow Rate FiO2 01/20/19 16:30 20 01/20/19 14:00 98.0 107 130/82 (98) 88 2.0 01/19/19 20:22 Nasal Cannula I&O- Last 24 Hours up to 6 AM 01/20/19 06:00 Intake Total 300 ml Output Total 0 ml Balance 300 ml Laboratory Data 24H LABS Laboratory Tests 2 01/20/19 04:58: Nucleated Red Blood Cells % (auto) 0.0, Anion Gap 4L, Glomerular Filtration Rate > 60.0, Blood Urea Nitrogen 8, Creatinine 0.96, Sodium Level 141, Potassium Level 4.0, Chloride Level 103, Carbon Dioxide Level 34H, Calcium Level 9.2 01/20/19 09:29: Blood Gas Bicarbonate Standard 26.1H, Arterial Blood pH 7.304L, Arterial Blood Partial Pressure CO2 61.1*H, Arterial Blood Partial Pressure O2 58.7L, Arterial Blood Total CO2 31.5H, Arterial Blood HCO3 29.7H, Arterial Blood Base Excess 2.1H, Arterial Blood Oxygen Saturation 89.0L 01/20/19 15:31: Blood Gas Bicarbonate Standard 26.1H, Arterial Blood pH 7.314L, Arterial Blood Partial Pressure CO2 59.1H, Arterial Blood Partial Pressure O2 57.5L, Arterial Blood Total CO2 31.2H, Arterial Blood HCO3 29.4H, Arterial Blood Base Excess 2.0, Arterial Blood Oxygen Saturation 89.8L CBC/BMP Laboratory Tests 01/20/19 04:58 Red Blood Count 4.11, Mean Corpuscular Volume 97.1 H, Mean Corpuscular Hemoglobin 27.7, Mean Corpuscular Hemoglobin Concent 28.6 L, Red Cell Distribution Width 14.4, Calcium Level 9.2 DENISSE RODRIGUEZ MD Jan 20, 2019 16:52
[2019-01-20 18:00] VITALS: BP 132/70
[2019-01-20] MEDS ORDERED: IBUPROFEN 400 MG TAB PO PRN (18:15)
--- NOTE | 2019-01-20 20:15 | CR ---
DATE OF CONSULTATION: 01/20/2019 CHIEF COMPLAINT: Asked by Dr. Maynard to consult on Ms. Alfred for pain medication recommendations in the setting of chronic hypercapnic respiratory failure. HISTORY OF PRESENT ILLNESS: Ms. Alfred is a 58-year-old female with a past medical history notable for COPD with hypoxemia and hypercapnia, CHF, DVT, and dyslipidemia who presented to the emergency department yesterday after having a fall at home. Apparently, she was trying to sit on her commode and sat on the arm rest portion and fell on her ankle. She has a known fracture of her left foot. Her left foot was more painful and she had difficulty ambulating so she proceeded to the emergency department. She failed a trial of ambulation in the emergency department and was therefore admitted. On the admitting H and P it was stated that her pain was well-controlled on Percocet except when she ambulated. Ms. Alfred has been taking Percocet at home for neck and back pain. Her outpatient dosage was one tablet every 6 hours as needed although she tended to take it every 6 hours scheduled. I do not know if she increased her Percocet usage prior to presenting to the emergency department. Since she has been admitted, she is on 1-2 tablets every 4 hours depending upon pain level. She apparently start watches the clock and at the 3-hour point she calls the nurses to make certain that she has her pain medicine right on the dot at 4 hours and she is always in severe pain and needs two tablets rather than one. There is been no titration of her pain medication since admission. In addition to being on narcotics at an increased frequency and dosage, she is also on Xanax, BuSpar, Lexapro and Lamictal. Not surprisingly, she was sleepy this morning. Arterial blood gas at that time had shown respiratory acidemia with a pH of 7.3 and pCO2 of 61. Her pCO2 was in the range that she typically has. I reviewed the records with her last admission and her bicarbonate level was higher at the time of discharge but I could not find any clear change in medications to explain that. She is on a standing torsemide dosage and is listed as still taking that but, whether she had decreased the dosage or missed a dosage I cannot tell. Nonetheless, when I see her she is awake and can complete very long full sentences. No cough during the evaluation. She complains of significant foot pain and wants to know when her next medication is due but she is not tachycardiac, tachypneic nor diaphoretic and again is speaking in full sentences. She denies any breathing difficulties stating "my breathing breathing is fine." No cough. No chest pain or pressure. No abdominal pain, nausea, emesis or significant reflux. No PND or orthopnea. She sleeps at home in the recliner and states that she does not sleep well. She offers no other history. PAST MEDICAL HISTORY: 1. COPD with hypercapnia and hypoxemia. 2. CHF. 3. History of DVT, on Xarelto. 4. Dyslipidemia. 5. Old left head of metatarsal 2-5 fractures. 6. Status post hip replacement. 7. Status post right hip surgery. 8. History of significant tobacco usage. MEDICATIONS ON ADMISSION: - albuterol 2.5 nebulization every 4 hours as needed - Xanax 0.5 mg twice a day - aspirin 81 mg by mouth daily - BuSpar 5 mg by mouth three times a day - Lexapro 20 mg by mouth daily - ferrous sulfate 325 mg by mouth daily - folic acid one by mouth daily - midodrine 5 mg by mouth three times a day - Prilosec 40 mg by mouth twice a day - Zofran 4 mg every 6 hours as needed - Percocet one tablet every 6 hours as needed for pain (it was listed as every 4 hours on her intake today but every 6 hours on her discharge, incidentally for an accidental overdose, on 01/11/2019) - Xarelto 10 mg by mouth daily - Requip 2 mg nightly - Breo once a day - senna two tablets at bedtime - Zocor 20 mg nightly - torsemide 20 mg by mouth daily - vitamin D 2000 units by mouth daily - Lamictal 150 mg by mouth daily ALLERGIES: PENICILLINS, QUINOLONES, SULFA, CEPHALEXIN, CLAVULANIC ACID, ERYTHROMYCIN, GABAPENTIN, IODINE, LEVAQUIN, SOLU-MEDROL (which she gets frequently as an inpatient), and MORPHINE. I do not know what her reactions are to these medications. SOCIAL HISTORY: Ms. Alfred is and has three adult children. She smoked two packs per day since age 12 and quit 8 years ago. This gives her greater than 75 pack-year history. I do not know her alcohol history. FAMILY HISTORY: Her mother had bone cancer and her father had throat and lung cancer. REVIEW OF SYSTEMS: Per HPI. Remainder of review of systems are negative. She did not want to answer a significant number of questions regarding review of systems. PHYSICAL EXAMINATION: GENERAL: Ms. Alfred is lying in bed in no acute distress. She is able to complete full sentences. She is also able to easily move to the sitting position. No cough during the evaluation. VITAL SIGNS: Temperature 98, pulse is listed as 107, but when I took it her pulse was in the 90s, respiratory rate 18, blood pressure 130/82 with a MAP of 98, SpO2 88-95% on 2 liters by nasal cannula. HEENT: Anicteric. Nares: Patent bilaterally. Oropharynx: Moist mucosa. NECK: Supple, without JVD, thyromegaly or masses, trachea is midline. LYMPHATICS: Without cervical or supraclavicular lymphadenopathy. LUNGS: Symmetric excursion, markedly diminished air entry. No wheeze, rhonchi or crackle on tidal excursion. Prolonged expiratory phase. No accessory muscle usage or retractions. CARDIOVASCULAR: Regular rate and rhythm with a normal S1, S2, no murmur, rub or gallop appreciated. Unable to appreciate PMI. ABDOMEN: Bowel sounds positive, soft, nondistended, nontender, no hepatosplenomegaly or masses appreciated and a difficult examination given her body habitus. EXTREMITIES: Warm and well-perfused. She does have a wrap and soft boot on her left lower extremity. There is trace pretibial edema on the right. Palpable pedal pulses on the right. No clubbing or cyanosis. LABORATORY DATA: CBC from this morning showed a hemoglobin of 11.4, hematocrit 39.9, platelet count 283,000, white blood cell count 8100. Chemistry shows sodium 141, potassium 4.0, chloride 103, bicarbonate 34, anion gap 4, BUN 8, creatinine 0.96, glucose 87, calcium 9.2. Her initial arterial blood gas this morning was 7.3/61/58 with a measured saturation of 89% and a base excess of 2.1. I believe this was drawn on 2 liters. A repeat 6 hours later was 7.31/59/56 with a measured saturation of 90% and a base excess of 2.0. This was drawn on 2 liters by nasal cannula. I reviewed her extremity CT report. That study was limited by osteopenia and advanced degenerative changes. Suspected nondisplaced fractures at the heads of the second through fourth metatarsal bones are consistent with old, previously diagnosed fractures based on CT dated 02/25/2018 (almost a year ago). Hematoma in the subcutaneous tissues overlying the second through fourth metatarsal bones. IMPRESSION: 1. Acute on chronic hypercapnic respiratory failure. She is mentating fine. Her chronic portion is felt secondary to COPD. I do not know if there is also a component related to obesity hypoventilation. The acute portion is felt secondary to narcotic and benzodiazepine usage. She has also shown that this occurs when she increases her frequency of it based on her recent accidental overdose from taking too many medications at home are. 2. COPD with hypercapnia and hypoxemia. 3. History of CHF. 4. Left foot hematoma. No new fracture. 5. Anxiety. 6. History of significant tobacco usage. RECOMMENDATIONS: 1. I discussed with Ms. Alfred the importance of using other means of pain control, particularly with the amount of benzodiazepine that she is taking. She was very hostile and stated "I know all that" and did not want to listen to the reasons why. 2. I discussed with her that this will lead to intubation and that is unnecessary as there are other modalities to treat pain. 3. I recommended decreasing her back to one Percocet every 6 hours as needed for pain and she became quite adamant that that was not sufficient. Nonetheless, I recommend doing that. 4. I discussed with her that while I do not want to see her in pain, I feel that we should best address the source of the pain. This is not a new fracture, this is a hematoma, and that I would recommend directing her care at inflammation. I therefore, recommended low-dose Toradol every 6 hours as needed. 5. Will need to follow her creatinine being on a nonsteroidal medication. 6. While I spent extensive time trying to explain the reasons for it, I also note that previous pulmonary providers have also tried to explain this to her with no success. She appears to have little insight into the reasons for her treatment choices and I think she is going to frequently need redirecting. As noted previously, this is not the first admission that she stares at the clock and makes certain her pain medications are on her bedside table at the exact time she is eligible to receive them. Thank you for this consult. We will continue to follow with you for the immediate future. ARLEY
[2019-01-20] MEDS: rOPINIRole 2MG TAB PO SCH (20:30)
[2019-01-20] MEDS: SIMVASTATIN 20 MG TAB PO SCH (20:30)
[2019-01-20] MEDS: ALPRAZolam 0.25 MG TAB PO SCH (20:30)
[2019-01-20] MEDS: SENNA 8.6 MG TAB (SENOKOT) PO SCH (20:30)
[2019-01-20] MEDS: ONDANSETRON 4 MG TAB (S0181) PO PRN (21:17)
[2019-01-20 22:00] VITALS: BP 125/75
[2019-01-21] VITALS (8 sets, daily range): BP systolic 110–132; BP diastolic 55–86
[2019-01-21] MEDS: PERCOCET 5MG/325MG TAB PO PRN ×3 (05:19→18:08)
[2019-01-21 06:27] LABS: BLOOD UREA NITROGEN 9 MG/DL (7-18); CALCIUM LEVEL 8.9 MG/DL (8.8-10.2); CARBON DIOXIDE LEVEL 34 MEQ/L (21-32); CHLORIDE LEVEL 100 MEQ/L (98-107); CREATININE FOR GFR 0.88 MG/DL (0.55-1.30); GLOMERULAR FILTRATION RATE > 60.0 (>45); GLUCOSE, FASTING 106 MG/DL (70-100); POTASSIUM SERUM 4.2 MEQ/L (3.5-5.1); SODIUM LEVEL 138 MEQ/L (136-145)
[2019-01-21] MEDS: ALBUTEROL SULFATE 2.5 MG/0.5 ML INH NEB SOLN NEB PRN ×3 (07:24→15:28)
[2019-01-21] MEDS: ADVAIR HFA 230/21MCG INHALER INH SCH ×2 (07:24→20:30)
[2019-01-21] MEDS: MIDODRINE 5 MG TAB PO SCH ×5 (09:00→21:40)
[2019-01-21] MEDS: RIVAROXABAN 10 MG TAB (XARELTO) PO SCH (09:13)
[2019-01-21] MEDS: busPIRone 5 MG TAB PO SCH ×3 (09:13→21:39)
[2019-01-21] MEDS: FERROUS SULFATE 325MG TAB PO SCH (09:13)
[2019-01-21] MEDS: lamoTRIgine 100MG TAB PO SCH (09:14)
[2019-01-21] MEDS: ESCITALOPRAM OXALATE 10 MG TAB (LEXAPRO) PO SCH (09:14)
[2019-01-21] MEDS: ASPIRIN 81 MG ENTERIC TAB PO SCH (09:14)
[2019-01-21] MEDS: TORSEMIDE 20 MG TAB PO SCH (09:14)
[2019-01-21] MEDS: LIDOCAINE 5% (LIDODERM) PATCH TD SCH (09:15)
[2019-01-21] MEDS: VITAMIN D 1,000 INTERNATIONAL UNITS TABLET PO SCH (09:15)
[2019-01-21] MEDS: FOLIC ACID 1 MG TAB PO SCH (09:15)
[2019-01-21] MEDS: NYSTATIN 100,000 UNITS/GM TOPICAL PWD 15 GM TOP SCH ×2 (09:15→21:40)
[2019-01-21] MEDS: ALPRAZolam 0.25 MG TAB PO SCH ×2 (09:15→21:40)
[2019-01-21] MEDS: OMEPRAZOLE 20 MG CAP PO SCH ×2 (09:15→21:39)
--- NOTE | 2019-01-21 12:34 | IPN ---
DATE OF SERVICE: 01/21/2019 The patient still complains of dull pain due to old nondisplaced fractures in the 2nd and 4th metatarsal bones and left foot hematoma. The patient has become much more lethargic and confused with Percocet and states that she will not go to rehabilitation. She does live alone but has a caregiver, as well as her niece as her healthcare proxy. She was seen by Dr. Gao yesterday for her chronic obstructive pulmonary disease (COPD) and chronic respiratory failure. Would suggest to discontinue and minimize her benzodiazepine. The patient is not open to discussion about further discontinuation of her narcotics, although she says that her primary care physician has decreased it to three times daily Percocet at home and are on the way of decreasing her antianxiety medication, Xanax, as well. Interventional Cardiologist input has been well documented and appreciated. The patient continues to be adamant about receiving more Percocet. Vital signs: Temperature 97.4, pulse 103, sinus, respiratory rate 18, blood pressure 132/86, 92% on 2 liters nasal cannula. Generally, the patient is awake, alert, oriented times three. No conversational dyspnea. No jugular venous distention (JVD), thyromegaly. Lungs are diminished but clear to auscultation. No wheezing, rales, or rhonchi. Heart: S1, S2, sinus rhythm. Abdomen is obese, soft, nontender, nondistended. Positive bowel sounds. Extremities: The patient has her toes bandaged in a splint in the left foot. LABORATORY DATA AND IMAGING STUDIES: Have been reviewed. ASSESSMENT AND PLAN: This is a 58-year-old female, a history of chronic hypoxic renal failure requiring supplemental oxygen, chronic hypercapnia with obesity hypoventilation secondary to opioid and narcotic use, history of congestive heart failure (CHF), chronic anxiety. CURRENT ISSUES: 1. Left foot hematoma with old fractures. The patient is demanding to receive Percocet three tablets daily. Per orthopedic surgery, the patient can weightbear and followup in the office after discharge. No current surgical intervention. 2. Chronic hypoxemic respiratory failure, on supplemental oxygen. The patient refuses to discontinue her narcotics at this time. States that her pain is uncontrolled. We have tried to minimize her anxiolytics and pain medications due to chronic hypercapnia which usually worsens when she is on increased doses of the anxiolytics and opioids. Continue with oxygen supplementation for 88% to 92% goal. 3. History of deep venous thrombosis (DVT), on chronic Xarelto. DISPOSITION: Discharge home once clears physical therapy, hopefully in the morning. MTDD
[2019-01-21] MEDS ORDERED: KETOROLAC TROMETHAMINE 10 MG TAB PO ONE (13:00)
[2019-01-21] MEDS ORDERED: ALPR0.25 PO (20:28)
[2019-01-21] MEDS ORDERED: **NOTE PATIENT COMMENT** MISC XX SCH (21:00)
[2019-01-21] MEDS: rOPINIRole 2MG TAB PO SCH (21:39)
[2019-01-21] MEDS: SENNA 8.6 MG TAB (SENOKOT) PO SCH (21:39)
[2019-01-21] MEDS: SIMVASTATIN 20 MG TAB PO SCH (21:40)
[2019-01-21] MEDS: KETOROLAC TROMETHAMINE 10 MG TAB PO PRN (22:30)
[2019-01-22] MEDS: PERCOCET 5MG/325MG TAB PO PRN ×2 (01:31→07:35)
[2019-01-22 02:00] VITALS: BP 121/59
[2019-01-22] MEDS: ALBUTEROL SULFATE 2.5 MG/0.5 ML INH NEB SOLN NEB PRN ×3 (03:50→11:12)
[2019-01-22 06:00] VITALS: BP 101/56
[2019-01-22] MEDS: KETOROLAC TROMETHAMINE 10 MG TAB PO PRN (06:43)
[2019-01-22] MEDS: ADVAIR HFA 230/21MCG INHALER INH SCH (07:16)
[2019-01-22] MEDS: LIDOCAINE 5% (LIDODERM) PATCH TD SCH (08:55)
[2019-01-22] MEDS: VITAMIN D 1,000 INTERNATIONAL UNITS TABLET PO SCH (08:56)
[2019-01-22] MEDS: ALPRAZolam 0.25 MG TAB PO SCH (08:56)
[2019-01-22] MEDS: lamoTRIgine 100MG TAB PO SCH (08:56)
[2019-01-22] MEDS: busPIRone 5 MG TAB PO SCH (08:56)
[2019-01-22] MEDS: ESCITALOPRAM OXALATE 10 MG TAB (LEXAPRO) PO SCH (08:57)
[2019-01-22] MEDS: FERROUS SULFATE 325MG TAB PO SCH (08:57)
[2019-01-22] MEDS: ASPIRIN 81 MG ENTERIC TAB PO SCH (08:57)
[2019-01-22] MEDS: FOLIC ACID 1 MG TAB PO SCH (08:57)
[2019-01-22] MEDS: OMEPRAZOLE 20 MG CAP PO SCH (08:57)
[2019-01-22] MEDS: RIVAROXABAN 10 MG TAB (XARELTO) PO SCH (08:57)
[2019-01-22] MEDS: TORSEMIDE 20 MG TAB PO SCH (08:57)
[2019-01-22] MEDS: NYSTATIN 100,000 UNITS/GM TOPICAL PWD 15 GM TOP SCH (08:58)
[2019-01-22] MEDS: MIDODRINE 5 MG TAB PO SCH ×2 (09:00→12:12)
[2019-01-22 10:00] VITALS: BP 106/62
[2019-01-22] MEDS: ONDANSETRON 4 MG TAB (S0181) PO PRN (12:03)
[2019-01-22] MEDS ORDERED: XANA0.25 PO ×2 (12:42→12:45)
--- NOTE | 2019-01-23 17:51 | DSES ---
DATE OF ADMISSION: 01/19/2019 DATE OF DISCHARGE: 01/22/2019 CONSULTANTS: Dr. Goa, public relations studies director. PRIMARY DISCHARGE DIAGNOSES: 1. Old, nondisplaced fractures of the second through fourth metatarsals. No definite acute fractures have been identified with extensive posttraumatic infiltrate with a 4.1 x 1.8 x 4.5 hematoma overlying the second through the fourth metatarsal. 2. Chronic hypercapnic respiratory failure. 3. Morbid obesity, body mass index (BMI) of 41.2. 4. History of congestive heart failure (CHF). 5. Chronic obstructive pulmonary disease (COPD). 6. Anxiety. 7. History of significant tobacco usage. DISCHARGE MEDICATIONS: Patient was not given any new prescriptions for Percocet or Xanax. She was instructed to use her existing Xanax 0.5 mg which is according to her pharmacist to take a half a tablet by mouth twice a day for her anxiety as needed. She was also instructed as much as possible to take Percocet only as needed with a maximum daily dose of 3-4 tablets at most. Continue medications are: - albuterol as needed every four hours - aspirin 81 daily - buspirone 5 mg twice a day - vitamin D 2000 daily - escitalopram oxalate 20 mg daily - ferrous sulfate 325 daily - Breo Ellipta one puff inhaled daily - folic acid 1 mg daily - lamotrigine 150 mg daily - midodrine 5 mg three times a day - nitroglycerin as needed - Prilosec 40 twice a day - Zofran 4 mg every six hours as needed - Percocet one every six hours as needed, maximum daily dose of four tablets - Xarelto 10 mg daily - ropinirole 2 mg at bedtime - Senokot two tablets at bedtime - Zocor 20 at bedtime - torsemide 200 mg daily DISCHARGE INSTRUCTIONS: Per Dr. Gao's recommendations, the patient should be weaned off of all opioids as well as her antianxiety medication, Xanax due to the patient was defensive when given recommendations to decrease her opioid use as well as her benzodiazepine saying that "I know all that." She was a risk of hypercapnic failure secondary to opioid use due to complaints of severe pain. HOSPITAL COURSE: A 58-year-old female with a history of chronic hypercapnia and hypoxia on oxygen, obesity, hypoventilation with chronic opioid use, congestive heart failure (CHF), chronic anxiety, morbid obesity who presented to the emergency room after a traumatic injury to her left foot, sustaining a hematoma due to chronic use of Xarelto for her history of deep vein thrombosis (DVT). For pain control, the patient was started on Percocet. The patient demanded more pain control. Due to risk of hypercapnia, public relations studies director was consulted to discuss with her that she should refrain from using excessive opioids and decrease her need and use non-opiate medications for pain control. She was found to have a pH of 7.3, CO2 of 61, O2 of 58 on arterial blood gas. The patient was very defensive and refused to further be managed by Dr. Gao who had suggested cutting back on her medications. We had decreased her Xanax of 0.5 mg twice daily to 0.25 mg twice a day and her Percocet down to 3-4 tablets maximum daily use daily. The patient was evaluated by physical therapy and passed a home safety evaluation. Her foot was elevated. CT of the foot did not show any acute fractures. These were all old compared to the previous imaging studies. Her Xarelto was continued due to history of DVT but has had no significant bleeding. There is no compartment syndrome clinically on the day of discharge. LABORATORY DATA ON DISCHARGE: White count 8.1, hemoglobin 11, hematocrit 39, platelet count 283. Sodium 138, potassium 4.2, chloride 100, bicarbonate 34, BUN 9, creatinine 0.88, glucose of 106. CT of the extremity on 01/19/2019 shows old fractures of the head of the second through fourth metatarsal which are unchanged from 02/25/2018. There are definite acute fractures appreciated. There is extensive posttraumatic hematoma measuring 4 x 1.8 x 4.5 cm on the subcutaneous tissue overlying the second through the fourth metatarsal bone. TIME SPENT ON DISCHARGE: 32 minutes.
== END 2019-01-22 12:38 | disposition home or self-care (01) ==
LOC: M ED 12:38 → M ED INP 12:39 → M MSPAV 21:20
PROVIDERS: ADMIT Internal Medicine; ATTEND General Practice
DX: S92.325A Nondisplaced fracture of second metatarsal bone, left foot, initial encounter for closed fracture (principal); S92.335A Nondisplaced fracture of third metatarsal bone, left foot, initial encounter for closed fracture; S92.345A Nondisplaced fracture of fourth metatarsal bone, left foot, initial encounter for closed fracture; S90.32XA Contusion of left foot, initial encounter; W18.11XA Fall from or off toilet without subsequent striking against object, initial encounter; Y92.002 Bathroom of unspecified non-institutional (private) residence as the place of occurrence of the external cause; Y99.9 Unspecified external cause status; Y93.9 Activity, unspecified; J96.12 Chronic respiratory failure with hypercapnia; E66.01 Morbid (severe) obesity due to excess calories; J44.9 Chronic obstructive pulmonary disease, unspecified; F41.9 Anxiety disorder, unspecified; Z87.891 Personal history of nicotine dependence; E78.49 Other hyperlipidemia; Z79.82 Long term (current) use of aspirin; Z79.51 Long term (current) use of inhaled steroids; Z79.899 Other long term (current) drug therapy; Z79.01 Long term (current) use of anticoagulants; Z86.718 Personal history of other venous thrombosis and embolism; Z88.0 Allergy status to penicillin; Z88.2 Allergy status to sulfonamides; Z88.8 Allergy status to other drugs, medicaments and biological substances; Z68.41 Body mass index [BMI] 40.0-44.9, adult

== ENCOUNTER 2019-01-26 09:54 | Emergency (ER) | payer OTHER ==
[~2019-01-26] VITALS: Ht 162.6 cm; Wt 104.1 kg
[~2019-01-26 09:54] MED LIST changes: +ALPR0.25 PO; +XANA0.25 PO
[2019-01-26] MEDS ORDERED: OXYC1TAB23 (10:21)
[2019-01-26] MEDS ORDERED: NALOXONE INJ 0.4 MG/1 ML VIAL (J2310) IV STA (10:22)
[2019-01-26 10:34] LABS: BASO % 0.5 % (0.0-1.0); EOS # 0.4 10^3/uL (0.0-0.50); EOS % 5.2 % (0.0-3.0); HEMATOCRIT 39.7 % (36.0-47.0); HEMOGLOBIN 11.4 g/dl (12.0-15.5); LYMPH # 1.4 10^3/uL (1.5-4.5); LYMPH % 17.5 % (24.0-44.0); MEAN CORPUSCULAR HEMOGLOBIN 28.1 pg (27.0-33.0); MEAN CORPUSCULAR HGB CONC 28.7 g/dl (32.0-36.5); MONO # 0.5 10^3/uL (0.0-0.8); MONO % 6.9 % (0.0-5.0); NEUTROPHILS # 5.4 10^3/uL (1.8-7.7); NEUTROPHILS % 69.5 % (36.0-66.0); PLATELET COUNT, AUTOMATED 310 10^3/uL (150-450); RED BLOOD COUNT 4.05 10^6/uL (4.00-5.40); WHITE BLOOD COUNT 7.7 10^3/uL (4.0-10.0)
[2019-01-26 10:44] LABS: ABG BASE EXCESS 7.5 (-2.0-2.0); ABG HCO3 36.7 MEQ/L (22.0-26.0); ABG O2 SATURATION 97.9 % (95.0-99.0); ABG PARTIAL PRESSURE O2 106.2 mmHg (75.0-100.0); ABG STANDARD HCO3 31.4 MEQ/L (22.0-26.0); ABG TOTAL CO2 39.1 MEQ/L (23.0-31.0)
[2019-01-26 11:00] LABS: BLOOD UREA NITROGEN 8 MG/DL (7-18); CALCIUM LEVEL 9.4 MG/DL (8.8-10.2); CARBON DIOXIDE LEVEL 35 MEQ/L (21-32); CHLORIDE LEVEL 104 MEQ/L (98-107); CREATININE FOR GFR 0.79 MG/DL (0.55-1.30); GLOMERULAR FILTRATION RATE > 60.0 (>45); GLUCOSE, FASTING 104 MG/DL (70-100); NT-PRO BNP 618 PG/ML (<125); SODIUM LEVEL 144 MEQ/L (136-145)
[2019-01-26] MEDS ORDERED: dexameTHASONE 20 MG/5 ML VIAL (J1100) IV ONE (11:00)
[2019-01-26] MEDS: IPRATROPIUM 0.5MG/ALBUTEROL 2.5MG INH SOL UD 3ML (DUONEB)(J7620) NEB SCH ×3 (11:04→11:58)
--- NOTE | 2019-01-26 11:15 | REP ---
HISTORY: Headache. COMPARISON: 12/15/2018 TECHNIQUE: 4.5 mm contiguous transaxial sections were obtained from the skull base to the cerebral convexities with thin cuts through the posterior fossa without the administration of intravenous contrast. FINDINGS: The ventricles and sulci are consistent with the patient's age. There are no extra-axial fluid collections. There is no mass effect. The deep cerebral white matter is consistent with the patient's age. The orbital and petrous structures , cerebellopontine angles, and posterior fossa are unremarkable. The sella turcica, cavernous, and paracavernous structures are essentially unremarkable. The visualized portions of the paranasal sinuses and mastoid air cells are clear. Images of the skull base show no gross abnormality. IMPRESSION: Essentially unremarkable CT examination of the brain. Incidental note is made of soft tissue densities in the ethmoid bullae likely sinus mucosal thickening, essentially unchanged from the prior exam. Electronically Signed by Tr Chirinos DO 01/26/2019 11:33 A
--- NOTE | 2019-01-26 11:31 | REP ---
HISTORY: Cough and dyspnea. COMPARISON: 01/05/2019 The technique utilized in obtaining the radiograph has magnified the cardiac silhouette and accentuated the interstitial markings. There is no change from the prior exam. There are no acute patchy parenchymal opacities or pleural effusions. IMPRESSION: Stable chest. No evidence of acute cardiopulmonary disease. Electronically Signed by Tr Chirinos DO 01/26/2019 11:33 A
[2019-01-26 13:11] LABS: ABG HCO3 34.8 MEQ/L (22.0-26.0); ABG O2 SATURATION 90.6 % (95.0-99.0); ABG PARTIAL PRESSURE CO2 66.4 mmHg (35.0-45.0); ABG PARTIAL PRESSURE O2 57.6 mmHg (75.0-100.0); ABG STANDARD HCO3 30.7 MEQ/L (22.0-26.0); ABG TOTAL CO2 36.8 MEQ/L (23.0-31.0); ABG pH (ARTERIAL) 7.337 UNITS (7.350-7.450)
[2019-01-26] MEDS: IPRATROPIUM 0.5MG/ALBUTEROL 2.5MG INH SOL UD 3ML (DUONEB)(J7620) NEB PRN ×3 (13:25→14:03)
[2019-01-26 15:12] LABS: ABG BASE EXCESS 8.2 (-2.0-2.0); ABG HCO3 35.5 MEQ/L (22.0-26.0); ABG O2 SATURATION 93.9 % (95.0-99.0); ABG TOTAL CO2 37.4 MEQ/L (23.0-31.0); ABG pH (ARTERIAL) 7.366 UNITS (7.350-7.450)
[2019-01-26 15:13] LABS: ABG PARTIAL PRESSURE CO2 63.4 mmHg (35.0-45.0)
[2019-01-26] MEDS ORDERED: ONDANSETRON 4MG/2ML VIAL (J2405) IV ONE (15:30)
[2019-01-26 17:32] VITALS: BP 121/60
--- NOTE | 2019-01-26 21:36 | ECGEPIP ---
[facility] - ED Test Date: 2019-01-26 Pat Name: JULITO PUENTE Department: Room: - Gender: Female It Security Specialist: [facility] : 1960 Requested By: Diego Marin Order Number: [id number] Reading MD: Greta Aponte Measurements Intervals [place] Rate: 94 P: 50 NH: 171 QRS: 19 QRSD: 97 T: 40 QT: 358 QTc: 448 Interpretive Statements SINUS RHYTHM NSTTW abnormalities DECREASED RATE 01/05/19 Electronically Signed on 01-26-2019 21:35:39 EDT by Greta Aponte
== END 2019-01-26 17:37 | disposition home or self-care (01) ==
LOC: EDBD 09:54 → M ED 09:54
DX: J44.1 Chronic obstructive pulmonary disease with (acute) exacerbation (principal); F11.10 Opioid abuse, uncomplicated; Z91.14 Patient's other noncompliance with medication regimen; F13.10 Sedative, hypnotic or anxiolytic abuse, uncomplicated; J96.20 Acute and chronic respiratory failure, unspecified whether with hypoxia or hypercapnia; I50.9 Heart failure, unspecified; E78.5 Hyperlipidemia, unspecified; Z86.718 Personal history of other venous thrombosis and embolism; F32.9 Major depressive disorder, single episode, unspecified; F41.9 Anxiety disorder, unspecified; Z72.0 Tobacco use; Z79.82 Long term (current) use of aspirin; Z79.899 Other long term (current) drug therapy; Z88.0 Allergy status to penicillin; Z88.8 Allergy status to other drugs, medicaments and biological substances; Z88.2 Allergy status to sulfonamides; Z88.1 Allergy status to other antibiotic agents; Z88.5 Allergy status to narcotic agent; Z91.89 Other specified personal risk factors, not elsewhere classified
CPT/HCPCS: 36600; 70450; 71045; 80048; 82803; 83605; 83880; 85025; 87040; 87077; 93005; 93041; 94640; 96374; 96375; 99285; J1100; J2310; J2405

== ENCOUNTER 2019-02-07 14:57 | Inpatient (IN) | payer OTHER ==
[~2019-02-07] VITALS: Ht 162.6 cm; Wt 106.1 kg
[~2019-02-07 14:57] MED LIST changes: +OXYC1TAB23
[2019-02-07] MEDS ORDERED: NALOXONE INJ 0.4 MG/1 ML VIAL (J2310) As Ordered ONE (15:42)
[2019-02-07] MEDS ORDERED: NALOXONE INJ 0.4 MG/1 ML VIAL (J2310) IV STA (15:48)
[2019-02-07] MEDS ORDERED: ACETAMINOPHEN TAB 650MG DOSE (2X325MG) PO PRN (18:15)
[2019-02-07] MEDS ORDERED: SPIR50TA4 PO (18:32)
[2019-02-07] MEDS ORDERED: ALPR0.5T3 PO (18:34)
--- NOTE | 2019-02-07 18:54 | HPEPDOC ---
General Date of Admission Feb 07, 2019 at 14:58 Date of Service: Feb 07, 2019 Chief Complaint The patient is a 58-year-old female admitted with a reason for visit of Laminator Preforms Status. History of Present Illness 58-year-old female with past medical history of end-stage chronic obstructive pulmonary disease on 2 L of oxygen at baseline, DVT and PE, iron deficiency anemia, hypertension, GERD, anxiety, and diastolic congestive heart failure presented to the ER with a chief complaint of shortness of breath and running out of her pain medications. The patient had signed a MOLST form for Comfort Measures Only with her PCP, and was in the process of following up with hospice as an outpatient, however there was an issue with her medical insurance. There have been some concerns regarding the patient staying at home under comfort measures only status given the fact that she lives alone and has little support according to the ER providers conversation with the hospice nurse. It was recommended that the patient be omitted to the hospitalist service for trans ition to the hospice house. At this time, the patient denies any acute complaints of fevers, chills, chest pain, palpitations, abdominal pain, or any nausea/vomiting/diarrhea. Home Medications Scheduled Alprazolam (Alprazolam) 0.5 Mg Tablet, 0.5 MG PO BID, (Reported) Aspirin (Aspirin EC) 81 Mg Tabec, 81 MG PO DAILY, (Reported) Buspirone HCl (Buspirone HCl) 5 Mg Tablet, 5 MG PO TID, (Reported) Cholecalciferol (Vitamin D3) (Vitamin D3) 2,000 Unit Tab, 2,000 UNIT PO DAILY, (Reported) Escitalopram Oxalate (Escitalopram Oxalate) 20 Mg Tab, 20 MG PO DAILY, (Reported) Ferrous Sulfate (Ferrous Sulfate) 325 Mg Tab, 325 MG PO DAILY, (Reported) Fluticasone/Vilanterol (Breo Ellipta 200-25 Mcg INH) 1 Inh Inh, 1 PUFF INH DAILY, (Reported) Folic Acid (Folic Acid) 1 Mg Tab, 1 MG PO DAILY, (Reported) Lamotrigine (Lamotrigine) 150 Mg Tab, 150 MG PO DAILY, (Reported) Midodrine HCl (Midodrine HCl) 5 Mg Tablet, 5 MG PO TID, (Reported) 0800/1200/1600 Omeprazole (Omeprazole) 40 Mg Cap, 40 MG PO BID, (Reported) Rivaroxaban (Xarelto) 10 Mg Tab, 10 MG PO DAILY, (Reported) Ropinirole HCl (Ropinirole HCl) 2 Mg Tablet, 2 MG PO QHS, (Reported) Sennosides (Senna Lax) 8.6 Mg Tablet, 2 TAB PO QHS, (Reported) Simvastatin (Zocor) 20 Mg Tab, 20 MG PO QHS, (Reported) Spironolactone (Spironolactone) 50 Mg Tablet, 100 MG PO BID, (Reported) NEW MEDICATION Torsemide (Torsemide) 20 Mg Tablet, 20 MG PO DAILY, (Reported) Scheduled PRN Albuterol Sulf (Albuterol Sulfate) 2.5 Mg/3 Ml Vial.neb, 2.5 MG INH Q4H PRN for SHORTNESS OF BREATH, (Reported) Albuterol Sulfate (Ventolin Hfa) 108 Mcg/Act Aer, 2 PUFF INH Q4H PRN for SHORTNESS OF BREATH, (Reported) Nitroglycerin (Nitrostat) 0.4 Mg Subl, 0.4 MG SL NITRO PRN for CHEST PAIN, (Reported) Ondansetron HCl (Ondansetron HCl) 4 Mg Tab, 4 MG PO Q6H PRN for NAUSEA, (Reported) Miscellaneous Medications Oxycodone HCl/Acetaminophen (Oxycodone-Acetaminophen 5-325) 1 Each Tablet, (Reported) Allergies Coded Allergies: morphine (Verified Allergy, Severe, SOB, itching, rash, 02/07/19) Penicillins (Verified Allergy, Intermediate, Hives, 02/07/19) Quinolones (Verified Allergy, Intermediate, Hives, 02/07/19) Sulfa (Sulfonamide Antibiotics) (Verified Allergy, Intermediate, Hives, 02/07/19) cephalexin (Verified Allergy, Intermediate, Hives, 02/07/19) clavulanic acid (Verified Allergy, Intermediate, Hives, 02/07/19) erythromycin base (Verified Allergy, Intermediate, Hives, 02/07/19) moxifloxacin (Verified Allergy, Intermediate, Hives, 02/07/19) methylprednisolone (Verified Allergy, Mild, RASH WITH IV, 02/07/19) levofloxacin (Verified Allergy, Unknown, 02/07/19) iodine (Verified Adverse Reaction, Intermediate, Acute renal insufficiency , 02/07/19) iopamidol (Verified Adverse Reaction, Intermediate, Acute renal insufficiency, 02/07/19) gabapentin (Verified Adverse Reaction, Mild, Upset stomach, 02/07/19) Past Medical History Medical History As noted in HPI. Social History * Smoker: Denies Alcohol: Denies Drugs: denies Review of Systems Other systems 10 point review of systems negative unless otherwise specified in HPI. Physical Examination General Exam: Positive: Alert, Cooperative, Mild Distress (2/2 SOB) ENT Exam: Positive: Atraumatic Neck Exam: Negative: JVD Chest Exam: Positive: Diminished Heart Exam: Positive: Rate Normal, Normal S1, Normal S2 Abdomen Exam: Positive: Soft; Negative: Tenderness Extremity Exam: Negative: Tenderness Vital Signs Vital Signs Date Time Temp Pulse Resp B/P (MAP) Pulse Ox O2 Delivery O2 Flow Rate FiO2 02/07/19 15:18 Nasal Cannula 4.0 02/07/19 15:05 99.6 106 35 140/89 98 Plan / VTE VTE Prophylaxis Ordered?: No (No CORPORATE COUNSEL) Plan Plan Hx of End Stage COPD on Oxygen History of DVT and PE History of diastolic congestive heart failure History of anxiety Hypertension Iron deficiency anemia GERD The patient will be admitted to the hospitalist service for transition to the hospice house given her continued clinical decline and lack of support. PFS has been consulted. NAVID ELLIOTT MD Feb 07, 2019 18:54
[2019-02-07] MEDS ORDERED: SIMVASTATIN 20 MG TAB PO SCH (21:00)
--- NOTE | 2019-02-07 21:00 | IPNPDOC ---
Text Note Date of Service The patient was seen on 02/07/19. 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 She says she does not want to and wants every done to help her breathing. VS,Fishbone, I+O VS, Fishbone, I+O Vital Signs Date Time Temp Pulse Resp B/P (MAP) Pulse Ox O2 Delivery O2 Flow Rate FiO2 02/07/19 19:06 99.9 102 28 170/79 (109) 97 Nasal Cannula 4.0 EILEEN DONOVAN MD Feb 07, 2019 21:00
[2019-02-07 21:18] VITALS: BP 142/76
[2019-02-07] MEDS: IPRATROPIUM 0.5MG/ALBUTEROL 2.5MG INH SOL UD 3ML (DUONEB)(J7620) NEB PRN (21:23)
[2019-02-07 21:27] LABS: ABG BASE EXCESS 4.6 (-2.0-2.0); ABG O2 SATURATION 93.6 % (95.0-99.0); ABG PARTIAL PRESSURE O2 64.5 mmHg (75.0-100.0); ABG STANDARD HCO3 28.5 MEQ/L (22.0-26.0); ABG TOTAL CO2 37.7 MEQ/L (23.0-31.0)
[2019-02-07 21:28] LABS: ABG PARTIAL PRESSURE CO2 86.3 mmHg (35.0-45.0); ABG pH (ARTERIAL) 7.226 UNITS (7.350-7.450)
[2019-02-07] MEDS ORDERED: ACETAMINOPHEN 500 MG TAB PO PRN (21:45)
[2019-02-07 22:00] VITALS: O2SAT 92
[2019-02-07] MEDS ORDERED: PILL CUTTER 1 EACH XX PRN (22:00)
[2019-02-07 22:03] VITALS: BP 120/81
[2019-02-07] MEDS: busPIRone 5 MG TAB PO SCH (22:22)
[2019-02-07] MEDS: PERCOCET 5MG/325MG TAB PO PRN (22:22)
[2019-02-07] MEDS: LORazepam 0.5 MG TAB PO PRN (22:22)
[2019-02-07] MEDS: OMEPRAZOLE 20 MG CAP PO SCH (22:22)
[2019-02-07 22:47] LABS: BASO % 0.1 % (0.0-1.0); EOS # 0.1 10^3/uL (0.0-0.50); EOS % 0.3 % (0.0-3.0); HEMATOCRIT 43.7 % (36.0-47.0); LYMPH # 0.9 10^3/uL (1.5-4.5); LYMPH % 3.6 % (24.0-44.0); MEAN CORPUSCULAR HEMOGLOBIN 27.3 pg (27.0-33.0); MEAN CORPUSCULAR HGB CONC 27.5 g/dl (32.0-36.5); MEAN CORPUSCULAR VOLUME 99.3 fl (80.0-96.0); MONO # 1.4 10^3/uL (0.0-0.8); MONO % 5.4 % (0.0-5.0); NEUTROPHILS # 23.4 10^3/uL (1.8-7.7); NEUTROPHILS % 89.7 % (36.0-66.0); PLATELET COUNT, AUTOMATED 253 10^3/uL (150-450); WHITE BLOOD COUNT 26.1 10^3/uL (4.0-10.0)
[2019-02-07 23:23] LABS: BLOOD UREA NITROGEN 10 MG/DL (7-18); CALCIUM LEVEL 9.2 MG/DL (8.8-10.2); CARBON DIOXIDE LEVEL 36 MEQ/L (21-32); CHLORIDE LEVEL 99 MEQ/L (98-107); CREATININE FOR GFR 0.87 MG/DL (0.55-1.30); GLOMERULAR FILTRATION RATE > 60.0 (>45); GLUCOSE, FASTING 112 MG/DL (70-100); SODIUM LEVEL 139 MEQ/L (136-145)
[2019-02-07] MEDS: SYMBICORT 160/4.5MCG INHALER 6GM INH SCH (23:30)
[2019-02-07 23:32] LABS: ABG BASE EXCESS 4.3 (-2.0-2.0); ABG HCO3 31.7 MEQ/L (22.0-26.0); ABG O2 SATURATION 97.9 % (95.0-99.0); ABG PARTIAL PRESSURE O2 88.6 mmHg (75.0-100.0); ABG STANDARD HCO3 28.3 MEQ/L (22.0-26.0); ABG TOTAL CO2 33.5 MEQ/L (23.0-31.0); ABG pH (ARTERIAL) 7.333 UNITS (7.350-7.450)
[2019-02-07] MEDS: IPRATROPIUM 0.5MG/ALBUTEROL 2.5MG INH SOL UD 3ML (DUONEB)(J7620) NEB SCH (23:33)
[2019-02-08] VITALS: BP 124/78
[2019-02-08] MEDS ORDERED: KETOROLAC 30 MG/ML VIAL (J1885) IV PRN (00:15)
[2019-02-08] MEDS ORDERED: FUROSEMIDE 100 MG/10 ML VIAL (J1940) IV ONE (00:15)
[2019-02-08 00:30] VITALS: O2SAT 91
[2019-02-08 04:15] VITALS: O2SAT 96
[2019-02-08] MEDS: IPRATROPIUM 0.5MG/ALBUTEROL 2.5MG INH SOL UD 3ML (DUONEB)(J7620) NEB SCH ×6 (04:18→23:29)
[2019-02-08 04:24] LABS: BASO % 0.2 % (0.0-1.0); EOS # 0.2 10^3/uL (0.0-0.50); EOS % 0.9 % (0.0-3.0); HEMATOCRIT 41.1 % (36.0-47.0); HEMOGLOBIN 11.6 g/dl (12.0-15.5); LYMPH # 1.1 10^3/uL (1.5-4.5); LYMPH % 5.8 % (24.0-44.0); MEAN CORPUSCULAR HEMOGLOBIN 27.4 pg (27.0-33.0); MEAN CORPUSCULAR HGB CONC 28.2 g/dl (32.0-36.5); MEAN CORPUSCULAR VOLUME 96.9 fl (80.0-96.0); MONO # 1.2 10^3/uL (0.0-0.8); MONO % 5.8 % (0.0-5.0); NEUTROPHILS # 17.2 10^3/uL (1.8-7.7); NEUTROPHILS % 86.7 % (36.0-66.0); PLATELET COUNT, AUTOMATED 249 10^3/uL (150-450); RED BLOOD COUNT 4.24 10^6/uL (4.00-5.40); WHITE BLOOD COUNT 19.8 10^3/uL (4.0-10.0)
[2019-02-08 04:45] LABS: BLOOD UREA NITROGEN 11 MG/DL (7-18); CALCIUM LEVEL 9.7 MG/DL (8.8-10.2); CARBON DIOXIDE LEVEL 37 MEQ/L (21-32); CHLORIDE LEVEL 98 MEQ/L (98-107); CREATININE FOR GFR 0.89 MG/DL (0.55-1.30); GLOMERULAR FILTRATION RATE > 60.0 (>45); GLUCOSE, FASTING 103 MG/DL (70-100); POTASSIUM SERUM 4.3 MEQ/L (3.5-5.1); SODIUM LEVEL 135 MEQ/L (136-145)
[2019-02-08] MEDS: LORazepam 0.5 MG TAB PO PRN ×3 (05:03→23:07)
[2019-02-08] MEDS: PERCOCET 5MG/325MG TAB PO PRN ×4 (05:03→23:07)
[2019-02-08 05:44] LABS: ABG BASE EXCESS 6.4 (-2.0-2.0); ABG O2 SATURATION 99.8 % (95.0-99.0); ABG PARTIAL PRESSURE CO2 49.7 mmHg (35.0-45.0); ABG PARTIAL PRESSURE O2 221.4 mmHg (75.0-100.0); ABG STANDARD HCO3 30.4 MEQ/L (22.0-26.0); ABG TOTAL CO2 33.5 MEQ/L (23.0-31.0); ABG pH (ARTERIAL) 7.426 UNITS (7.350-7.450)
[2019-02-08 06:00] VITALS: BP 130/67
[2019-02-08] MEDS: SYMBICORT 160/4.5MCG INHALER 6GM INH SCH ×2 (07:42→19:21)
--- NOTE | 2019-02-08 07:42 | REP ---
Portable chest, 10:31 p.m., single AP view with the patient upright: Comparison is a 05/07/2019. The lung white are clear. The cardiac size is normal. The adair, mediastinum, and skeletal structures are unremarkable. Impression: Negative portable chest. There is no interval change. Electronically Signed by Mikhail Delcid MD 02/08/2019 07:33 A
[2019-02-08] MEDS: MIDODRINE 5 MG TAB PO SCH ×2 (08:00→11:51)
[2019-02-08 08:05] VITALS: BP 127/88
[2019-02-08] MEDS ORDERED: FERROUS SULFATE 325MG TAB PO SCH (09:00)
[2019-02-08] MEDS ORDERED: TORSEMIDE 20 MG TAB PO SCH (09:00)
[2019-02-08] MEDS ORDERED: lamoTRIgine 100MG TAB PO SCH (09:00)
[2019-02-08] MEDS ORDERED: SPIRONOLACTONE 50 MG TAB PO SCH (09:00)
[2019-02-08] MEDS ORDERED: ASPIRIN 81 MG ENTERIC TAB PO SCH (09:00)
[2019-02-08] MEDS ORDERED: ESCITALOPRAM OXALATE 10 MG TAB (LEXAPRO) PO SCH (09:00)
[2019-02-08] MEDS ORDERED: RIVAROXABAN 10 MG TAB (XARELTO) PO SCH (09:00)
[2019-02-08] MEDS: OMEPRAZOLE 20 MG CAP PO SCH (09:24)
[2019-02-08] MEDS: busPIRone 5 MG TAB PO SCH (09:28)
--- NOTE | 2019-02-08 12:03 | IPNPDOC ---
Subjective Date Seen The patient was seen on 02/08/19. Subjective Chief Complaint/HPI Patient seen and examined at the bedside. She states that her respiratory status is at his baseline. Denies any worsening cough, sputum production, congestion, or any pain. Events since last encounter Patient rescinded her MANAGER HIV status overnight. Please see assessment/plan for further details. Objective Physical Examination General Exam: Positive: Alert, Cooperative, Mild Distress (2/2 anxiety) ENT Exam: Positive: Atraumatic, Mucous membr. moist/pink Neck Exam: Negative: JVD Chest Exam: Positive: Diminished Heart Exam: Positive: Rate Normal, Normal S1, Normal S2 Abdomen Exam: Positive: Soft; Negative: Tenderness Extremity Exam: Negative: Tenderness Psych Exam: Positive: Anxiety, Oriented x 3 Assessment /Plan Plan/VTE VTE Prophylaxis Ordered?: Yes Plan Hx of End Stage COPD on Oxygen CXR with no acute disease Cont serial nebs No evidence of acute exacerbation at this time Initial ABGs revealed hypercapnia 2/2 use of opioids, as the patient was MANAGER HIV She rescinded this status and was started on BiPAP overnight At this time the patient's ABG has improved, and she is speaking in full sentences We will cont to monitor her respiratory status closely Chronic Pain Patient counseled at length regarding very judicious use of her pain/anxiety meds given her baseline end stage COPD History of DVT and PE Cont Xarelto History of diastolic congestive heart failure Continue torsemide, spironolactone History of anxiety Ativan when necessary, discussed the risks at length with the patient. Continue Lexapro We will continue to monitor her respiratory status closely Dyslipidemia Continue statin Iron deficiency anemia Continue iron supplementation GERD Continue PPI DVT prophylaxis On Xarelto CODE STATUS-- Full The patient has a very poor long-term prognosis given her end-stage COPD and recurrent hospitalizations. Discussed this at length with the patient while her nurse was also at the bedside. The patient decided on being comfort measures only with her primary care physician and had a MOLST form signed. She was being transitioned to the hospice house as an outpatient and there were some pending issues with her medical insurance. However, the patient came to the ER yesterday as she states that she ran out of pain medications. There have been concerns raised by her family and healthcare workers about the misuse of her pain medicat ions by other people on the outpatient basis. Yesterday evening, after being admitted under MANAGER HIV status for transition to the hospice house, the patient rescinded her MANAGER HIV status and declared, "I do not want to ." The patient states that she wants to be full code at this time and wants to discuss matters further with her family. I discussed options with the patient extensively at the bedside, and she verbalized understanding of the same. She would like to take some more time to decide on her options. Update 1:30 pm--I was asked to come to the bedside and speak to the patient as well as her daughters regarding changing the patient back to Comfort Measures Only status. The patient states that she does indeed want to be comfort measures only at this time. She states that she rescinded this status yesterday evening because she was scared and her family was not around for reassurance. After speaking to her daughters Mariam Celeste, Debbie, and her Home Health Aid who were at the bedside, the patient states that she wants to be comfort measures only. She verbalized understanding of the implications of this decision. She states that she wants to make sure that her underlying anxiety and chronic pain are treated. She also states that she wants to be transitioned to the Hospice House. She verbalized understanding and displayed adequate insight and judgment about her poor long-term prognosis given her end-stage COPD and recurrent hospitalizations. An updated MOLST form was signed and placed in the chart. The patient's bedside nurses today; Baldev and Mariama, as well as the ICU Charge Nurse Jaylin have witnessed and participated in the aforementioned discussion. We will proceed with honoring the patient and her families wishes. VS, I&O, 24H, Fishbone Vital Signs/I&O Vital Signs Date Time Temp Pulse Resp B/P (MAP) Pulse Ox O2 Delivery O2 Flow Rate FiO2 02/08/19 11:47 22 02/08/19 11:13 30 02/08/19 08:30 111 97 2.0 02/08/19 08:05 97.5 127/88 (101) 02/08/19 04:15 BIPAP/CPAP I&O- Last 24 Hours up to 6 AM 02/08/19 06:00 Intake Total 180 ml Output Total 1075 ml Balance -895 ml Laboratory Data 24H LABS Laboratory Tests 2 02/07/19 21:12: Blood Gas Bicarbonate Standard 28.5H, Arterial Blood pH 7.226*L, Arterial Blood Partial Pressure CO2 86.3*H, Arterial Blood Partial Pressure O2 64.5L, Arterial Blood Total CO2 37.7H, Arterial Blood HCO3 35.0H, Arterial Blood Base Excess 4.6H, Arterial Blood Oxygen Saturation 93.6L 02/07/19 22:43: Immature Granulocyte % (Auto) 0.9, White Blood Count 26.1H, Red Blood Count 4.40, Hemoglobin 12.0, Hematocrit 43.7, Mean Corpuscular Volume 99.3H, Mean Corpuscular Hemoglobin 27.3, Mean Corpuscular Hemoglobin Concent 27.5L, Red Cell Distribution Width 14.0, Platelet Count 253, Neutrophils (%) (Auto) 89.7H, Lymphocytes (%) (Auto) 3.6L, Monocytes (%) (Auto) 5.4H, Eosinophils (%) (Auto) 0.3, Basophils (%) (Auto) 0.1, Neutrophils # (Auto) 23.4H, Lymphocytes # (Auto) 0.9L, Monocytes # (Auto) 1.4H, Eosinophils # (Auto) 0.1, Basophils # (Auto) 0.0, Nucleated Red Blood Cells % (auto) 0.0, Anion Gap 4L, Glomerular Filtration Rate > 60.0, Blood Urea Nitrogen 10, Creatinine 0.87, Sodium Level 139, Potassium Level 5.0, Chloride Level 99, Carbon Dioxide Level 36H, Calcium Level 9.2 02/07/19 23:27: Blood Gas Bicarbonate Standard 28.3H, Arterial Blood pH 7.333L, Arterial Blood Partial Pressure CO2 61.0*H, Arterial Blood Partial Pressure O2 88.6, Arterial Blood Total CO2 33.5H, Arterial Blood HCO3 31.7H, Arterial Blood Base Excess 4.3H, Arterial Blood Oxygen Saturation 97.9 02/07/19 23:40: Urine Color YELLOW, Urine Appearance HAZY, Urine pH 5.0, Urine Specific [place] 1.020, Urine Protein NEGATIVE, Urine Glucose (UA) NEGATIVE, Urine Ketones NEGATIVE, Urine Blood 1+H, Urine Nitrite NEGATIVE, Urine Bilirubin NEGATIVE, Urine Urobilinogen 0.2, Urine Leukocyte Esterase NEGATIVE, Urine WBC (Auto) 2, Urine RBC (Auto) 3, Urine Hyaline Casts (Auto) 15, Urine Bacteria (Auto) NEGATIVE, Urine Squamous Epithelial Cells 0, Urine Granular Casts (Auto) 3, Urine Mucus (Auto) SMALL, Urine Sperm (Auto) 02/08/19 04:09: Immature Granulocyte % (Auto) 0.6, White Blood Count 19.8H, Red Blood Count 4.24, Hemoglobin 11.6L, Hematocrit 41.1, Mean Corpuscular Volume 96.9H, Mean Corpuscular Hemoglobin 27.4, Mean Corpuscular Hemoglobin Concent 28.2L, Red Cell Distribution Width 13.9, Platelet Count 249, Neutrophils (%) (Auto) 86.7H, Lymphocytes (%) (Auto) 5.8L, Monocytes (%) (Auto) 5.8H, Eosinophils (%) (Auto) 0.9, Basophils (%) (Auto) 0.2, Neutrophils # (Auto) 17.2H, Lymphocytes # (Auto) 1.1L, Monocytes # (Auto) 1.2H, Eosinophils # (Auto) 0.2, Basophils # (Auto) 0.0, Nucleated Red Blood Cells % (auto) 0.0 02/08/19 05:30: Blood Gas Bicarbonate Standard 30.4H, Arterial Blood pH 7.426, Arterial Blood Partial Pressure CO2 49.7H, Arterial Blood Partial Pressure O2 221.4H, Arterial Blood Total CO2 33.5H, Arterial Blood HCO3 32.0H, Arterial Blood Base Excess 6.4H, Arterial Blood Oxygen Saturation 99.8H 02/08/19 06:35: Anion Gap 0L, Glomerular Filtration Rate > 60.0, Blood Urea Nitrogen 11, Creatinine 0.89, Sodium Level 135L, Potassium Level 4.3, Chloride Level 98, Carbon Dioxide Level 37H, Calcium Level 9.7 CBC/BMP Laboratory Tests 02/07/19 22:43 Red Blood Count 4.40, Mean Corpuscular Volume 99.3 H, Mean Corpuscular Hemoglobin 27.3, Mean Corpuscular Hemoglobin Concent 27.5 L, Red Cell Distribution Width 14.0, Neutrophils (%) (Auto) 89.7 H, Lymphocytes (%) (Auto) 3.6 L, Monocytes (%) (Auto) 5.4 H, Eosinophils (%) (Auto) 0.3, Basophils (%) (Auto) 0.1, Neutrophils # (Auto) 23.4 H, Lymphocytes # (Auto) 0.9 L, Monocytes # (Auto) 1.4 H, Eosinophils # (Auto) 0.1, Basophils # (Auto) 0.0, Calcium Level 9.2 02/08/19 04:09 Red Blood Count 4.24, Mean Corpuscular Volume 96.9 H, Mean Corpuscular Hemoglobin 27.4, Mean Corpuscular Hemoglobin Concent 28.2 L, Red Cell Distribution Width 13.9, Neutrophils (%) (Auto) 86.7 H, Lymphocytes (%) (Auto) 5.8 L, Monocytes (%) (Auto) 5.8 H, Eosinophils (%) (Auto) 0.9, Basophils (%) (Auto) 0.2, Neutrophils # (Auto) 17.2 H, Lymphocytes # (Auto) 1.1 L, Monocytes # (Auto) 1.2 H, Eosinophils # (Auto) 0.2, Basophils # (Auto) 0.0 02/08/19 06:35 Calcium Level 9.7 Microbiology Microbiology 02/08/19 Blood Culture, Received Pending 02/08/19 Blood Culture, Received Pending 02/08/19 Gram Stain - Final, Resulted 02/08/19 Sputum Culture, Resulted Pending NAVID ELLIOTT MD Feb 08, 2019 12:03
[2019-02-08] MEDS: IPRATROPIUM 0.5MG/ALBUTEROL 2.5MG INH SOL UD 3ML (DUONEB)(J7620) NEB PRN (13:29)
[2019-02-08] MEDS ORDERED: PERCOCET 5MG/325MG TAB PO PRN (15:45)
[2019-02-08] MEDS ORDERED: MORPHINE 10MG/0.5ML ORAL CONCENTRATE SOLUTION U/D SL PRN (19:30)
[2019-02-08] MEDS ORDERED: diphenhydrAMINE INJ 50MG/ML VIAL (J1200) IV PRN (19:30)
[2019-02-08] MEDS: SENNA 8.6 MG TAB (SENOKOT) PO SCH (20:28)
[2019-02-08] MEDS: rOPINIRole 2MG TAB PO SCH (20:28)
[2019-02-08] MEDS: ONDANSETRON 4 MG TAB (S0181) PO PRN (20:29)
[2019-02-08] MEDS: ALPRAZolam 0.5 MG TAB PO SCH (20:29)
[2019-02-09] MEDS: IPRATROPIUM 0.5MG/ALBUTEROL 2.5MG INH SOL UD 3ML (DUONEB)(J7620) NEB SCH ×6 (03:23→23:12)
[2019-02-09 05:42] LABS: BASO % 0.2 % (0.0-1.0); EOS # 0.3 10^3/uL (0.0-0.50); EOS % 2.8 % (0.0-3.0); HEMATOCRIT 37.2 % (36.0-47.0); HEMOGLOBIN 11.1 g/dl (12.0-15.5); LYMPH # 1.4 10^3/uL (1.5-4.5); MEAN CORPUSCULAR HEMOGLOBIN 27.2 pg (27.0-33.0); MEAN CORPUSCULAR HGB CONC 29.8 g/dl (32.0-36.5); MEAN CORPUSCULAR VOLUME 91.2 fl (80.0-96.0); MONO # 1.2 10^3/uL (0.0-0.8); MONO % 9.7 % (0.0-5.0); NEUTROPHILS # 9.4 10^3/uL (1.8-7.7); NEUTROPHILS % 75.9 % (36.0-66.0); PLATELET COUNT, AUTOMATED 277 10^3/uL (150-450); RED BLOOD COUNT 4.08 10^6/uL (4.00-5.40); WHITE BLOOD COUNT 12.3 10^3/uL (4.0-10.0)
[2019-02-09] MEDS: LORazepam 0.5 MG TAB PO PRN ×3 (05:45→21:18)
[2019-02-09] MEDS: PERCOCET 5MG/325MG TAB PO PRN ×4 (05:46→23:09)
[2019-02-09 06:04] LABS: CALCIUM LEVEL 9.4 MG/DL (8.8-10.2); CREATININE FOR GFR 1.1 MG/DL (0.55-1.30); GLOMERULAR FILTRATION RATE 53.9 (>45); POTASSIUM SERUM 4.1 MEQ/L (3.5-5.1)
[2019-02-09] MEDS: SYMBICORT 160/4.5MCG INHALER 6GM INH SCH ×2 (07:24→21:00)
[2019-02-09] MEDS: lamoTRIgine 100MG TAB PO SCH (08:16)
[2019-02-09] MEDS: ALPRAZolam 0.5 MG TAB PO SCH ×2 (08:16→22:07)
--- NOTE | 2019-02-09 10:23 | IPNPDOC ---
Subjective Date Seen The patient was seen on 02/09/19. Subjective Chief Complaint/HPI Patient seen and examined at the bedside. No acute overnight events noted. The patient states that she is relatively comfortable and denies any acute complaints. Objective Physical Examination General Exam: Positive: Alert, Cooperative, No Acute Distress ENT Exam: Positive: Atraumatic, Mucous membr. moist/pink Neck Exam: Negative: JVD Chest Exam: Positive: Diminished Heart Exam: Positive: Rate Normal, Normal S1, Normal S2 Abdomen Exam: Positive: Soft; Negative: Tenderness Extremity Exam: Negative: Tenderness Psych Exam: Positive: Anxiety, Oriented x 3 Assessment /Plan Plan/VTE VTE Prophylaxis Ordered?: Yes Plan Hx of End Stage COPD on Oxygen Chronic Pain History of DVT and PE History of diastolic congestive heart failure History of anxiety Dyslipidemia Iron deficiency anemia GERD CODE STATUS-comfort measures only I had continued dialogue with Mrs. Alfred this morning regarding her comfort measures only status. She states that she is feeling well and denies any acute complaints. She is requesting more anxiety medication as she states that she was up all night due to her underlying anxiety. We will continue to provide the patient supportive care as per her wishes. PFS and hospice to see her in consultation tomorrow. VS, I&O, 24H, Fishbone Vital Signs/I&O Vital Signs Date Time Temp Pulse Resp B/P (MAP) Pulse Ox O2 Delivery O2 Flow Rate FiO2 02/09/19 08:00 1.0 02/08/19 23:37 20 02/08/19 23:12 97 02/08/19 19:21 Nasal Cannula 02/08/19 11:13 30 02/08/19 08:30 111 02/08/19 08:05 97.5 127/88 (101) I&O- Last 24 Hours up to 6 AM 02/09/19 06:00 Intake Total 1200 ml Output Total 900 ml Balance 300 ml Laboratory Data 24H LABS Laboratory Tests 2 02/09/19 05:09: Immature Granulocyte % (Auto) 0.4, White Blood Count 12.3H, Red Blood Count 4.08, Hemoglobin 11.1L, Hematocrit 37.2, Mean Corpuscular Volume 91.2, Mean Corpuscular Hemoglobin 27.2, Mean Corpuscular Hemoglobin Concent 29.8L, Red Cell Distribution Width 14.1, Platelet Count 277, Neutrophils (%) (Auto) 75.9H, Lymphocytes (%) (Auto) 11.0L, Monocytes (%) (Auto) 9.7H, Eosinophils (%) (Auto) 2.8, Basophils (%) (Auto) 0.2, Neutrophils # (Auto) 9.4H, Lymphocytes # (Auto) 1.4L, Monocytes # (Auto) 1.2H, Eosinophils # (Auto) 0.3, Basophils # (Auto) 0.0, Nucleated Red Blood Cells % (auto) 0.0, Anion Gap 4L, Glomerular Filtration Rate 53.9, Blood Urea Nitrogen 15, Creatinine 1.10, Sodium Level 135L, Potassium Level 4.1, Chloride Level 94L, Carbon Dioxide Level 37H, Calcium Level 9.4 CBC/BMP Laboratory Tests 02/09/19 05:09 Red Blood Count 4.08, Mean Corpuscular Volume 91.2, Mean Corpuscular Hemoglobin 27.2, Mean Corpuscular Hemoglobin Concent 29.8 L, Red Cell Distribution Width 14.1, Neutrophils (%) (Auto) 75.9 H, Lymphocytes (%) (Auto) 11.0 L, Monocytes (%) (Auto) 9.7 H, Eosinophils (%) (Auto) 2.8, Basophils (%) (Auto) 0.2, Neutrophils # (Auto) 9.4 H, Lymphocytes # (Auto) 1.4 L, Monocytes # (Auto) 1.2 H, Eosinophils # (Auto) 0.3, Basophils # (Auto) 0.0, Calcium Level 9.4 Microbiology Microbiology 02/08/19 Blood Culture - Preliminary, Resulted No growth after 24 hours . All specim... 02/08/19 Blood Culture - Preliminary, Resulted No growth after 24 hours . All specim... 02/08/19 Gram Stain - Final, Resulted 02/08/19 Sputum Culture - Preliminary, Resulted Staphylococcus Aureus Yeast Like Organism NAVID ELLIOTT MD Feb 09, 2019 10:23
[2019-02-09] MEDS: ONDANSETRON 4 MG TAB (S0181) PO PRN (19:51)
[2019-02-09] MEDS: SENNA 8.6 MG TAB (SENOKOT) PO SCH (22:06)
[2019-02-09] MEDS: rOPINIRole 2MG TAB PO SCH (22:07)
[2019-02-10] MEDS: IPRATROPIUM 0.5MG/ALBUTEROL 2.5MG INH SOL UD 3ML (DUONEB)(J7620) NEB SCH ×6 (04:08→22:54)
[2019-02-10] MEDS: PERCOCET 5MG/325MG TAB PO PRN ×4 (04:13→19:54)
[2019-02-10] MEDS: LORazepam 0.5 MG TAB PO PRN ×2 (04:13→13:02)
[2019-02-10] MEDS: SYMBICORT 160/4.5MCG INHALER 6GM INH SCH ×2 (07:27→19:54)
[2019-02-10] MEDS: lamoTRIgine 100MG TAB PO SCH (08:59)
[2019-02-10] MEDS: ALPRAZolam 0.5 MG TAB PO SCH ×2 (09:00→19:54)
--- NOTE | 2019-02-10 12:32 | IPNPDOC ---
Subjective Date Seen The patient was seen on 02/10/19. Subjective Chief Complaint/HPI Patient seen and examined at bedside. No acute overnight events noted. The patient remains on comfort measures only status. PFS on board. Objective Physical Examination General Exam: Positive: Alert, Cooperative, No Acute Distress ENT Exam: Positive: Atraumatic, Mucous membr. moist/pink Neck Exam: Negative: JVD Chest Exam: Positive: Diminished Heart Exam: Positive: Rate Normal, Normal S1, Normal S2 Abdomen Exam: Positive: Soft; Negative: Tenderness Extremity Exam: Negative: Tenderness Psych Exam: Positive: Anxiety, Oriented x 3 Assessment /Plan Plan/VTE VTE Prophylaxis Ordered?: Yes Plan Hx of End Stage COPD on Oxygen Chronic Pain History of DVT and PE History of diastolic congestive heart failure History of anxiety Dyslipidemia Iron deficiency anemia Morbid obesity, BMI of 40.2 Chronic respiratory failure secondary to COPD on continuous home oxygen GERD CODE STATUS-comfort measures only We will continue to provide the patient supportive care as per her wishes. PFS and hospice to further address disposition/medical insurance today. VS, I&O, 24H, Fishbone Vital Signs/I&O Vital Signs Date Time Temp Pulse Resp B/P (MAP) Pulse Ox O2 Delivery O2 Flow Rate FiO2 02/10/19 09:30 18 02/10/19 07:37 Nasal Cannula 2.0 02/08/19 23:12 97 02/08/19 11:13 30 02/08/19 08:30 111 02/08/19 08:05 97.5 127/88 (101) I&O- Last 24 Hours up to 6 AM 02/10/19 06:00 Intake Total 1395 ml Output Total 875 ml Balance 520 ml Laboratory Data Microbiology Microbiology 02/08/19 Blood Culture - Preliminary, Resulted No Growth after 48 hours. All Specime... 02/08/19 Blood Culture - Preliminary, Resulted No Growth after 48 hours. All Specime... 02/08/19 Gram Stain - Final, Complete 02/08/19 Sputum Culture - Final, Complete Staphylococcus Aureus Yeast Like Organism NAVID ELLIOTT MD Feb 10, 2019 12:32
[2019-02-10] MEDS: SENNA 8.6 MG TAB (SENOKOT) PO SCH (19:54)
[2019-02-10] MEDS: rOPINIRole 2MG TAB PO SCH (19:54)
[2019-02-11] MEDS: IPRATROPIUM 0.5MG/ALBUTEROL 2.5MG INH SOL UD 3ML (DUONEB)(J7620) NEB SCH ×6 (03:04→23:16)
[2019-02-11] MEDS: LORazepam 0.5 MG TAB PO PRN (03:13)
[2019-02-11] MEDS: PERCOCET 5MG/325MG TAB PO PRN ×5 (03:14→21:19)
[2019-02-11] MEDS: ONDANSETRON 4 MG TAB (S0181) PO PRN ×2 (03:42→10:35)
[2019-02-11] MEDS: SYMBICORT 160/4.5MCG INHALER 6GM INH SCH ×2 (07:12→19:52)
[2019-02-11] MEDS: ALPRAZolam 0.5 MG TAB PO SCH ×2 (07:26→21:19)
[2019-02-11] MEDS: lamoTRIgine 100MG TAB PO SCH (07:27)
[2019-02-11] MEDS: LORazepam 1 MG TAB PO PRN ×2 (10:35→16:38)
--- NOTE | 2019-02-11 14:50 | IPNPDOC ---
Text Note Date of Service The patient was seen on 02/11/19. NOTE Subjective: Patient was seen and examined at the bedside. Currently, patient reports that she's feeling anxious, she is asking if she is going to today. I have advised her about her current disease process and what hospice offers. Patient denies any pain, nausea, vomiting, diarrhea, or urinary discomfort. 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
[2019-02-11] MEDS: rOPINIRole 2MG TAB PO SCH (21:17)
[2019-02-11] MEDS: SENNA 8.6 MG TAB (SENOKOT) PO SCH (21:17)
[2019-02-12] MEDS: LORazepam 1 MG TAB PO PRN (02:00)
[2019-02-12] MEDS: PERCOCET 5MG/325MG TAB PO PRN ×4 (02:01→16:54)
[2019-02-12] MEDS ORDERED: BENZONATATE 100 MG CAP PO ONE (02:30)
[2019-02-12] MEDS: BENZONATATE 100 MG CAP PO PRN ×3 (02:39→23:15)
[2019-02-12] MEDS: IPRATROPIUM 0.5MG/ALBUTEROL 2.5MG INH SOL UD 3ML (DUONEB)(J7620) NEB SCH ×6 (03:40→23:42)
[2019-02-12] MEDS: SYMBICORT 160/4.5MCG INHALER 6GM INH SCH ×2 (07:36→19:43)
[2019-02-12] MEDS: ALPRAZolam 0.5 MG TAB PO SCH ×2 (08:14→21:28)
[2019-02-12] MEDS: AZITHROMYCIN 250 MG TAB PO SCH (08:15)
[2019-02-12] MEDS: lamoTRIgine 100MG TAB PO SCH (08:15)
[2019-02-12] MEDS: ONDANSETRON 4 MG TAB (S0181) PO PRN ×2 (08:29→21:53)
--- NOTE | 2019-02-12 10:36 | IPNPDOC ---
Text Note Date of Service The patient was seen on 02/12/19. NOTE Subjective: Patient was seen and examined at the bedside. Patient is currently feeling less anxious than yesterday after adjusting her Xanax. She denies chest pain, but reports some shortness of breath. Denies palpitations. Does report a cough. 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[place] - Non-essential medications were discontinued and medications for pain / anxiety were instituted - Currently looking into hospice house versus senior living with hospice - PFS onboard - Will transition the patient to ALC status today VS,Fishbone, I+O VS, Fishbone, I+O Vital Signs Date Time Temp Pulse Resp B/P (MAP) Pulse Ox O2 Delivery O2 Flow Rate FiO2 02/12/19 08:50 19 93 2.0 02/10/19 07:37 Nasal Cannula 02/08/19 11:13 30 02/08/19 08:30 111 02/08/19 08:05 97.5 127/88 (101) I&O- Last 24 Hours up to 6 AM 02/12/19 06:00 Intake Total 1070 ml Output Total 550 ml Balance 520 ml JAN SABA MD Feb 12, 2019 10:36
[2019-02-12] MEDS ORDERED: HYDROMORPHONE HCL 0.5 MG/ 0.5 ML SYRINGE (J1170 PER 1) IV PRN ×2 (16:30)
[2019-02-12] MEDS ORDERED: oxyCODONE 5MG TAB PO PRN (17:00)
[2019-02-12] MEDS: rOPINIRole 2MG TAB PO SCH (21:29)
[2019-02-12] MEDS: SENNA 8.6 MG TAB (SENOKOT) PO SCH (21:29)
[2019-02-12] MEDS: oxyCODONE 5MG TAB PO PRN (21:30)
[2019-02-13] MEDS: oxyCODONE 5MG TAB PO PRN ×7 (00:37→21:11)
[2019-02-13] MEDS: IPRATROPIUM 0.5MG/ALBUTEROL 2.5MG INH SOL UD 3ML (DUONEB)(J7620) NEB SCH ×5 (03:49→20:11)
[2019-02-13] MEDS: SYMBICORT 160/4.5MCG INHALER 6GM INH SCH ×2 (07:13→21:00)
[2019-02-13] MEDS: BENZONATATE 100 MG CAP PO PRN ×2 (09:24→18:13)
[2019-02-13] MEDS: AZITHROMYCIN 250 MG TAB PO SCH (09:24)
[2019-02-13] MEDS: ALPRAZolam 0.5 MG TAB PO SCH ×2 (09:24→20:45)
[2019-02-13] MEDS: lamoTRIgine 100MG TAB PO SCH (09:24)
[2019-02-13] MEDS: LORazepam 1 MG TAB PO PRN ×2 (14:57→17:33)
[2019-02-13] MEDS: SENNA 8.6 MG TAB (SENOKOT) PO SCH (20:45)
[2019-02-13] MEDS: rOPINIRole 2MG TAB PO SCH (20:45)
[2019-02-14] MEDS: IPRATROPIUM 0.5MG/ALBUTEROL 2.5MG INH SOL UD 3ML (DUONEB)(J7620) NEB SCH ×7 (00:18→22:38)
[2019-02-14] MEDS: oxyCODONE 5MG TAB PO PRN ×6 (03:32→21:00)
[2019-02-14] MEDS: BENZONATATE 100 MG CAP PO PRN ×2 (04:13→14:44)
[2019-02-14] MEDS: SCOPOLAMINE 1MG TRANSDERMAL PATCH TOP PRN (04:14)
[2019-02-14] MEDS: SYMBICORT 160/4.5MCG INHALER 6GM INH SCH ×2 (07:53→20:04)
[2019-02-14] MEDS: lamoTRIgine 100MG TAB PO SCH (08:01)
[2019-02-14] MEDS: ALPRAZolam 0.5 MG TAB PO SCH ×2 (08:01→20:58)
[2019-02-14] MEDS: AZITHROMYCIN 250 MG TAB PO SCH (08:03)
[2019-02-14] MEDS: guaiFENesin SYRUP 200 MG/10 ML UDC PO PRN ×2 (11:38→20:07)
[2019-02-14] MEDS: LORazepam 1 MG TAB PO PRN (12:21)
[2019-02-14] MEDS: MIRALAX *UNIT DOSE* 17GM PACKET PO PRN (12:21)
[2019-02-14] MEDS: rOPINIRole 2MG TAB PO SCH (20:58)
[2019-02-14] MEDS: SENNA 8.6 MG TAB (SENOKOT) PO SCH (20:59)
[2019-02-15] MEDS: oxyCODONE 5MG TAB PO PRN ×6 (00:09→19:45)
[2019-02-15] MEDS: IPRATROPIUM 0.5MG/ALBUTEROL 2.5MG INH SOL UD 3ML (DUONEB)(J7620) NEB SCH ×6 (03:05→23:22)
[2019-02-15] MEDS: SYMBICORT 160/4.5MCG INHALER 6GM INH SCH ×2 (07:09→19:25)
[2019-02-15] MEDS: guaiFENesin SYRUP 200 MG/10 ML UDC PO PRN ×2 (07:58→19:43)
[2019-02-15] MEDS: ALPRAZolam 0.5 MG TAB PO SCH ×2 (07:59→20:26)
[2019-02-15] MEDS: lamoTRIgine 100MG TAB PO SCH (07:59)
[2019-02-15] MEDS: AZITHROMYCIN 250 MG TAB PO SCH (08:00)
[2019-02-15] MEDS: BENZONATATE 100 MG CAP PO PRN ×3 (10:07→19:45)
[2019-02-15] MEDS: LORazepam 1 MG TAB PO PRN ×2 (10:10→15:08)
[2019-02-15] MEDS: diphenhydrAMINE 25 MG CAP PO PRN (16:30)
[2019-02-15] MEDS: MIRALAX *UNIT DOSE* 17GM PACKET PO PRN (19:43)
[2019-02-15] MEDS: rOPINIRole 2MG TAB PO SCH (20:25)
[2019-02-15] MEDS: SENNA 8.6 MG TAB (SENOKOT) PO SCH (20:26)
[2019-02-16] MEDS: oxyCODONE 5MG TAB PO PRN ×6 (02:22→21:10)
[2019-02-16] MEDS: IPRATROPIUM 0.5MG/ALBUTEROL 2.5MG INH SOL UD 3ML (DUONEB)(J7620) NEB SCH ×6 (02:31→22:47)
[2019-02-16] MEDS: SYMBICORT 160/4.5MCG INHALER 6GM INH SCH ×2 (07:14→19:41)
[2019-02-16] MEDS: guaiFENesin SYRUP 200 MG/10 ML UDC PO PRN ×2 (07:38→17:23)
[2019-02-16] MEDS: ALPRAZolam 0.5 MG TAB PO SCH ×2 (07:38→21:09)
[2019-02-16] MEDS: AZITHROMYCIN 250 MG TAB PO SCH (07:38)
[2019-02-16] MEDS: lamoTRIgine 100MG TAB PO SCH (07:38)
[2019-02-16] MEDS: LORazepam 1 MG TAB PO PRN ×3 (10:45→23:48)
[2019-02-16] MEDS: diphenhydrAMINE 25 MG CAP PO PRN ×3 (11:29→23:48)
[2019-02-16 12:01] VITALS: O2SAT 91
[2019-02-16] MEDS ORDERED: MICONAZOLE TOPICAL 2% CREAM 15GM TOP SCH (21:00)
[2019-02-16] MEDS: rOPINIRole 2MG TAB PO SCH (21:10)
[2019-02-16] MEDS: SENNA 8.6 MG TAB (SENOKOT) PO SCH (21:11)
[2019-02-16] MEDS ORDERED: MICONAZOLE-7 VAGINAL 2% CREAM 47.7 GM TOP SCH (22:51)
[2019-02-16] MEDS: MICONAZOLE-7 VAGINAL 2% CREAM 47.7 GM TOP SCH (23:47)
[2019-02-16] MEDS: BENZONATATE 100 MG CAP PO PRN (23:48)
[2019-02-17] MEDS: IPRATROPIUM 0.5MG/ALBUTEROL 2.5MG INH SOL UD 3ML (DUONEB)(J7620) NEB SCH ×6 (04:00→23:34)
[2019-02-17] MEDS: LORazepam 1 MG TAB PO PRN (04:45)
[2019-02-17] MEDS: oxyCODONE 5MG TAB PO PRN ×5 (04:46→20:52)
[2019-02-17] MEDS: SYMBICORT 160/4.5MCG INHALER 6GM INH SCH ×2 (07:26→20:27)
[2019-02-17] MEDS: lamoTRIgine 100MG TAB PO SCH (09:18)
[2019-02-17] MEDS: ALPRAZolam 0.5 MG TAB PO SCH ×2 (09:18→20:52)
[2019-02-17] MEDS: AZITHROMYCIN 250 MG TAB PO SCH (09:19)
[2019-02-17] MEDS: MICONAZOLE-7 VAGINAL 2% CREAM 47.7 GM TOP SCH ×3 (09:20→20:57)
[2019-02-17] MEDS: IPRATROPIUM 0.5MG/ALBUTEROL 2.5MG INH SOL UD 3ML (DUONEB)(J7620) NEB PRN (09:33)
[2019-02-17] MEDS: diphenhydrAMINE 25 MG CAP PO PRN ×2 (09:40→16:18)
[2019-02-17] MEDS: BENZONATATE 100 MG CAP PO PRN (16:18)
[2019-02-17] MEDS: rOPINIRole 2MG TAB PO SCH (20:50)
[2019-02-17] MEDS: SENNA 8.6 MG TAB (SENOKOT) PO SCH (20:52)
[2019-02-17] MEDS: guaiFENesin SYRUP 200 MG/10 ML UDC PO PRN (20:58)
[2019-02-18] MEDS: SCOPOLAMINE 1MG TRANSDERMAL PATCH TOP PRN (04:20)
[2019-02-18] MEDS: oxyCODONE 5MG TAB PO PRN ×6 (04:20→23:48)
[2019-02-18] MEDS: IPRATROPIUM 0.5MG/ALBUTEROL 2.5MG INH SOL UD 3ML (DUONEB)(J7620) NEB SCH ×6 (04:43→23:12)
[2019-02-18] MEDS: LORazepam 1 MG TAB PO PRN ×3 (07:24→13:56)
[2019-02-18] MEDS: guaiFENesin SYRUP 200 MG/10 ML UDC PO PRN ×2 (07:25→20:17)
[2019-02-18] MEDS: lamoTRIgine 100MG TAB PO SCH (07:46)
[2019-02-18] MEDS: AZITHROMYCIN 250 MG TAB PO SCH (07:46)
[2019-02-18] MEDS: ALPRAZolam 0.5 MG TAB PO SCH ×2 (07:46→20:15)
[2019-02-18] MEDS: MICONAZOLE-7 VAGINAL 2% CREAM 47.7 GM TOP SCH ×2 (07:47→20:18)
[2019-02-18] MEDS: SYMBICORT 160/4.5MCG INHALER 6GM INH SCH ×2 (09:00→19:58)
[2019-02-18] MEDS: diphenhydrAMINE 25 MG CAP PO PRN (14:29)
[2019-02-18] MEDS: SENNA 8.6 MG TAB (SENOKOT) PO SCH (20:15)
[2019-02-18] MEDS: rOPINIRole 2MG TAB PO SCH (20:15)
[2019-02-19] MEDS: IPRATROPIUM 0.5MG/ALBUTEROL 2.5MG INH SOL UD 3ML (DUONEB)(J7620) NEB SCH ×5 (02:30→20:18)
[2019-02-19] MEDS: oxyCODONE 5MG TAB PO PRN ×6 (02:53→21:30)
[2019-02-19] MEDS: diphenhydrAMINE 25 MG CAP PO PRN (06:31)
[2019-02-19] MEDS: SYMBICORT 160/4.5MCG INHALER 6GM INH SCH ×2 (06:59→20:18)
[2019-02-19] MEDS: lamoTRIgine 100MG TAB PO SCH (08:35)
[2019-02-19] MEDS: ALPRAZolam 0.5 MG TAB PO SCH ×2 (08:35→21:26)
[2019-02-19] MEDS: MICONAZOLE-7 VAGINAL 2% CREAM 47.7 GM TOP SCH ×2 (08:35→21:00)
[2019-02-19] MEDS ORDERED: guaiFENesin/CODEINE SYRUP 5 ML UDC PO PRN (10:30)
[2019-02-19] MEDS: guaiFENesin SYRUP 200 MG/10 ML UDC PO PRN ×2 (10:52→21:28)
--- NOTE | 2019-02-19 11:04 | IPNPDOC ---
Text Note Date of Service The patient was seen on 02/19/19. NOTE Subjective: Patient is seen and examined at bedside. Patient continues with comfort measures only. Patient is ALC status. Patient is complaining of excess coughing. She is bringing stuff up however, she has end-stage COPD. We are still waiting on placement either at the hospice house or home hospice. Patient is adamantly refusing to go to a residential with hospice. Objective: Limited physical exam shows alert and oriented female who was laying in bed coughing. Patient was in mild distress when she was coughing but no acute distress when she was not coughing. There was also diffuse wheezes throughout all lung white on expiration. Assessment/Plan 1. End-stage COPD on oxygen. I started the patient on codeine syrup for her cough. We will continue with her current medications to treat her comfort level. 2. Chronic pain. Patient is on opiate pain medications for comfort 3. History of DVT and PE and on anticoagulation due comfort measures only 4. History of anxiety. Patient is on Xanax twice a day as well as Ativan as nee ded. Plan: Plan is to continue with comfort measures only DVT prophy: None due to comfort measures only Dispo: Pending placement at other hospice house or home with hospice. I saw and evaluated the patient. I agree with the findings and plan of care as documented in the above note VS,Fishbone, I+O VS, Mehdibone, I+O Vital Signs Date Time Temp Pulse Resp B/P (MAP) Pulse Ox O2 Delivery O2 Flow Rate FiO2 02/19/19 09:13 2.0 02/19/19 06:32 18 02/17/19 20:27 Nasal Cannula 02/16/19 12:01 91 02/15/19 14:00 I&O- Last 24 Hours up to 6 AM 02/19/19 06:00 Intake Total 1080 ml Output Total 275 ml Balance 805 ml FEDERICO STEWART DO Feb 19, 2019 11:04 SILVESTRE SUTTON MD Feb 22, 2019 10:36
[2019-02-19] MEDS: LORazepam 1 MG TAB PO PRN ×2 (13:55→18:11)
[2019-02-19] MEDS: ONDANSETRON 4 MG TAB (S0181) PO PRN (18:11)
[2019-02-19 20:19] VITALS: O2SAT 90
[2019-02-19] MEDS: SENNA 8.6 MG TAB (SENOKOT) PO SCH (21:26)
[2019-02-19] MEDS: rOPINIRole 2MG TAB PO SCH (21:29)
[2019-02-19] MEDS ORDERED: ONDANSETRON 4MG/2ML VIAL (J2405) IV PRN (22:30)
[2019-02-20] MEDS: IPRATROPIUM 0.5MG/ALBUTEROL 2.5MG INH SOL UD 3ML (DUONEB)(J7620) NEB SCH ×7 (00:24→23:24)
[2019-02-20] MEDS: oxyCODONE 5MG TAB PO PRN ×6 (02:17→19:01)
[2019-02-20] MEDS: diphenhydrAMINE 25 MG CAP PO PRN ×3 (06:25→19:01)
[2019-02-20] MEDS: MICONAZOLE-7 VAGINAL 2% CREAM 47.7 GM TOP SCH ×3 (06:30→20:43)
[2019-02-20] MEDS: guaiFENesin SYRUP 200 MG/10 ML UDC PO PRN ×2 (06:44→19:01)
[2019-02-20] MEDS: SYMBICORT 160/4.5MCG INHALER 6GM INH SCH ×2 (06:57→19:55)
[2019-02-20] MEDS: ONDANSETRON 4 MG ORAL DISINTEGRATING TAB (Q0162 PER 1MG) PO PRN (07:29)
[2019-02-20] MEDS: MIRALAX *UNIT DOSE* 17GM PACKET PO PRN (08:07)
[2019-02-20] MEDS: ALPRAZolam 0.5 MG TAB PO SCH ×2 (08:07→20:14)
[2019-02-20] MEDS: lamoTRIgine 100MG TAB PO SCH (08:08)
[2019-02-20] MEDS: rOPINIRole 2MG TAB PO SCH (20:14)
[2019-02-20] MEDS: SENNA 8.6 MG TAB (SENOKOT) PO SCH (20:14)
[2019-02-21] MEDS: oxyCODONE 5MG TAB PO PRN ×6 (02:41→21:43)
[2019-02-21] MEDS: IPRATROPIUM 0.5MG/ALBUTEROL 2.5MG INH SOL UD 3ML (DUONEB)(J7620) NEB SCH ×6 (02:58→21:31)
[2019-02-21] MEDS: guaiFENesin SYRUP 200 MG/10 ML UDC PO PRN (03:31)
[2019-02-21] MEDS: SYMBICORT 160/4.5MCG INHALER 6GM INH SCH ×2 (07:45→21:00)
[2019-02-21] MEDS: ALPRAZolam 0.5 MG TAB PO SCH ×2 (09:45→21:43)
[2019-02-21] MEDS: MICONAZOLE-7 VAGINAL 2% CREAM 47.7 GM TOP SCH ×2 (09:46→21:45)
[2019-02-21] MEDS: lamoTRIgine 100MG TAB PO SCH (09:46)
[2019-02-21] MEDS: LORazepam 1 MG TAB PO PRN ×2 (13:10→16:31)
[2019-02-21] MEDS: rOPINIRole 2MG TAB PO SCH (21:43)
[2019-02-21] MEDS: MIRALAX *UNIT DOSE* 17GM PACKET PO PRN (21:44)
[2019-02-21] MEDS: SENNA 8.6 MG TAB (SENOKOT) PO SCH (21:44)
[2019-02-21] MEDS: BENZONATATE 100 MG CAP PO PRN (21:54)
[2019-02-22] MEDS: IPRATROPIUM 0.5MG/ALBUTEROL 2.5MG INH SOL UD 3ML (DUONEB)(J7620) NEB SCH ×5 (04:13→19:12)
[2019-02-22] MEDS: oxyCODONE 5MG TAB PO PRN ×5 (04:14→20:07)
[2019-02-22] MEDS: guaiFENesin SYRUP 200 MG/10 ML UDC PO PRN ×2 (04:57→20:07)
[2019-02-22] MEDS: LORazepam 1 MG TAB PO PRN ×4 (05:04→17:57)
[2019-02-22] MEDS: SYMBICORT 160/4.5MCG INHALER 6GM INH SCH ×2 (07:22→19:13)
[2019-02-22] MEDS: ALPRAZolam 0.5 MG TAB PO SCH ×2 (09:19→20:05)
[2019-02-22] MEDS: lamoTRIgine 100MG TAB PO SCH (09:19)
[2019-02-22] MEDS: MICONAZOLE-7 VAGINAL 2% CREAM 47.7 GM TOP SCH ×2 (09:20→20:08)
[2019-02-22] MEDS: BENZONATATE 100 MG CAP PO PRN (12:27)
[2019-02-22] MEDS: SENNA 8.6 MG TAB (SENOKOT) PO SCH (20:05)
[2019-02-22] MEDS: rOPINIRole 2MG TAB PO SCH (20:05)
[2019-02-23] MEDS: IPRATROPIUM 0.5MG/ALBUTEROL 2.5MG INH SOL UD 3ML (DUONEB)(J7620) NEB SCH ×7 (01:06→23:22)
[2019-02-23] MEDS: ONDANSETRON 4 MG ORAL DISINTEGRATING TAB (Q0162 PER 1MG) PO PRN (04:08)
[2019-02-23] MEDS: oxyCODONE 5MG TAB PO PRN ×5 (04:26→20:03)
[2019-02-23] MEDS ORDERED: FLEET ENEMA PR PRN (04:45)
[2019-02-23] MEDS: LORazepam 1 MG TAB PO PRN ×5 (05:31→18:46)
[2019-02-23] MEDS: SYMBICORT 160/4.5MCG INHALER 6GM INH SCH ×2 (07:28→19:30)
[2019-02-23] MEDS: ALPRAZolam 0.5 MG TAB PO SCH ×2 (09:31→20:00)
[2019-02-23] MEDS: MICONAZOLE-7 VAGINAL 2% CREAM 47.7 GM TOP SCH ×2 (09:31→20:01)
[2019-02-23] MEDS: BENZONATATE 100 MG CAP PO PRN (09:31)
[2019-02-23] MEDS: lamoTRIgine 100MG TAB PO SCH (09:31)
[2019-02-23] MEDS ORDERED: MORPHINE 10MG/0.5ML ORAL CONCENTRATE SOLUTION U/D SL PRN (12:00)
[2019-02-23] MEDS ORDERED: oxyCODONE 5MG TAB PO PRN (12:15)
[2019-02-23] MEDS: diphenhydrAMINE 25 MG CAP PO PRN (12:32)
[2019-02-23] MEDS: IPRATROPIUM 0.5MG/ALBUTEROL 2.5MG INH SOL UD 3ML (DUONEB)(J7620) NEB PRN (14:47)
[2019-02-23] MEDS ORDERED: diphenhydrAMINE 25 MG CAP PO ONE (17:00)
[2019-02-23] MEDS: SENNA 8.6 MG TAB (SENOKOT) PO SCH (20:00)
[2019-02-23] MEDS: rOPINIRole 2MG TAB PO SCH (20:00)
[2019-02-24] MEDS: IPRATROPIUM 0.5MG/ALBUTEROL 2.5MG INH SOL UD 3ML (DUONEB)(J7620) NEB SCH ×5 (03:46→20:00)
[2019-02-24] MEDS: oxyCODONE 5MG TAB PO PRN ×3 (04:05→16:19)
[2019-02-24] MEDS: LORazepam 1 MG TAB PO PRN ×3 (04:19→23:42)
[2019-02-24] MEDS: guaiFENesin SYRUP 200 MG/10 ML UDC PO PRN (04:29)
[2019-02-24] MEDS: SYMBICORT 160/4.5MCG INHALER 6GM INH SCH ×2 (07:41→20:53)
[2019-02-24] MEDS: MICONAZOLE-7 VAGINAL 2% CREAM 47.7 GM TOP SCH ×2 (09:00→23:42)
[2019-02-24] MEDS: ALPRAZolam 0.5 MG TAB PO SCH ×2 (09:20→20:35)
[2019-02-24] MEDS: lamoTRIgine 100MG TAB PO SCH (09:20)
[2019-02-24] MEDS: rOPINIRole 2MG TAB PO SCH ×2 (20:35→21:00)
[2019-02-24] MEDS: SENNA 8.6 MG TAB (SENOKOT) PO SCH ×2 (20:36→21:00)
[2019-02-25] MEDS: IPRATROPIUM 0.5MG/ALBUTEROL 2.5MG INH SOL UD 3ML (DUONEB)(J7620) NEB SCH ×6 (00:05→20:36)
[2019-02-25] MEDS: oxyCODONE 5MG TAB PO PRN ×3 (06:45→17:32)
[2019-02-25] MEDS: SYMBICORT 160/4.5MCG INHALER 6GM INH SCH ×2 (07:42→20:36)
[2019-02-25] MEDS: lamoTRIgine 100MG TAB PO SCH (08:37)
[2019-02-25] MEDS: ALPRAZolam 0.5 MG TAB PO SCH ×2 (08:37→22:46)
[2019-02-25] MEDS: LORazepam 1 MG TAB PO PRN ×4 (08:37→19:02)
[2019-02-25] MEDS: MICONAZOLE-7 VAGINAL 2% CREAM 47.7 GM TOP SCH ×2 (08:38→22:47)
[2019-02-25] MEDS ORDERED: fentaNYL 25 MCG/HR PATCH TOP SCH (09:00)
[2019-02-25] MEDS ORDERED: FENTANYL REMOVAL DOCUMENTATION MISC XX SCH (09:00)
[2019-02-25] MEDS: PHENAZOPYRIDINE 100 MG TAB PO SCH ×2 (11:39→21:00)
[2019-02-25] MEDS: diphenhydrAMINE 50 MG CAP PO PRN ×2 (12:37→19:02)
[2019-02-25] MEDS: SENNA 8.6 MG TAB (SENOKOT) PO SCH (21:00)
[2019-02-25] MEDS: rOPINIRole 2MG TAB PO SCH (22:46)
[2019-02-26] MEDS: IPRATROPIUM 0.5MG/ALBUTEROL 2.5MG INH SOL UD 3ML (DUONEB)(J7620) NEB SCH ×6 (02:11→18:44)
[2019-02-26] MEDS: SYMBICORT 160/4.5MCG INHALER 6GM INH SCH ×2 (07:11→18:44)
[2019-02-26] MEDS: PHENAZOPYRIDINE 100 MG TAB PO SCH ×2 (09:00→20:08)
[2019-02-26] MEDS: IPRATROPIUM 0.5MG/ALBUTEROL 2.5MG INH SOL UD 3ML (DUONEB)(J7620) NEB PRN ×3 (09:18→20:28)
[2019-02-26] MEDS: BENZONATATE 100 MG CAP PO PRN ×2 (10:13→20:09)
[2019-02-26] MEDS: oxyCODONE 5MG TAB PO PRN ×3 (10:13→20:10)
[2019-02-26] MEDS: guaiFENesin SYRUP 200 MG/10 ML UDC PO PRN (10:14)
[2019-02-26] MEDS: lamoTRIgine 100MG TAB PO SCH (10:14)
[2019-02-26] MEDS: ALPRAZolam 0.5 MG TAB PO SCH ×2 (10:14→20:08)
[2019-02-26] MEDS: MICONAZOLE-7 VAGINAL 2% CREAM 47.7 GM TOP SCH ×2 (10:30→20:09)
[2019-02-26] MEDS: diphenhydrAMINE 50 MG CAP PO PRN ×3 (11:25→20:08)
[2019-02-26] MEDS: LORazepam 1 MG TAB PO PRN ×2 (11:25→13:33)
--- NOTE | 2019-02-26 11:37 | IPNPDOC ---
Text Note Date of Service The patient was seen on 02/26/19. NOTE Subjective: Patient was seen and examined at bedside. Patient was extremely anxious about passing away. Patient says she had a very bad dream last night but cannot remember the dream. Patient is also very concerned that she is not remembering how long she has been in the hospital or anything that is been done for her in the hospital. Patient has been complaining about increased pain to the nursing staff we've been trying to optimize her pain control regimen in order to make her most comfortable. 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 Patient has end expiratory wheezing throughout her lung white. Assessment/Plan 1. End-stage COPD with hypoxemic respiratory failure. Patient is comfort measures only status and we will continue to make her comfortable. 2. Chronic pain. Patient is on opiate pain medications including a fentanyl patch for comfort. 3. History of DVT and PE. Patient is not on anticoagulation due to being comfort measures only. 4. History of anxiety. I did increased patient's Xanax dose to 1.5 mg twice a day. Patient also has Ativan as needed. DVT prophy: None due to comfort measures only Dispo: Pending placement at [facility]. VS,Fishbone, I+O VS, Fishbone, I+O Vital Signs Date Time Temp Pulse Resp B/P (MAP) Pulse Ox O2 Delivery O2 Flow Rate FiO2 02/25/19 19:50 2.0 02/23/19 20:03 16 02/20/19 00:24 105 I&O- Last 24 Hours up to 6 AM 02/26/19 06:00 Intake Total 780 ml Output Total 850 ml Balance -70 ml GME ATTESTATION GME ATTESTATION My faculty preceptor for this patient encounter was physically present during the encounter and was fully available. All aspects of the patient interview, examination, medical decision making process, and medical care plan development were reviewed and approved by the faculty preceptor. The faculty preceptor is aware and concurs with the plan as stated in the body of this note and will attest to such by his/her cosignature. ATTENDING NOTE I, Ro Saba, have independently examined this patient and performed my own physical exam, as well as reviewed the documentation and edited where necessary. I have discussed in detail with the resident / student the findings and plan of treatment as documented by the resident / student and edited their note. I agree with their findings and treatment plan and have edited their documentation. I will continue to follow the patient during this hospital stay. FEDERICO STEWART DO Feb 26, 2019 11:37 RO SABA MD Feb 26, 2019 14:41
[2019-02-26] MEDS: MIRALAX *UNIT DOSE* 17GM PACKET PO PRN (13:31)
[2019-02-26] MEDS: rOPINIRole 2MG TAB PO SCH (20:08)
[2019-02-26] MEDS: SENNA 8.6 MG TAB (SENOKOT) PO SCH (20:08)
[2019-02-27] MEDS: IPRATROPIUM 0.5MG/ALBUTEROL 2.5MG INH SOL UD 3ML (DUONEB)(J7620) NEB SCH ×7 (00:09→23:34)
[2019-02-27] MEDS: guaiFENesin SYRUP 200 MG/10 ML UDC PO PRN ×2 (06:21→19:35)
[2019-02-27] MEDS: LORazepam 1 MG TAB PO PRN ×3 (06:21→13:16)
[2019-02-27] MEDS: diphenhydrAMINE 50 MG CAP PO PRN ×3 (06:21→19:36)
[2019-02-27] MEDS: oxyCODONE 5MG TAB PO PRN ×4 (06:23→19:38)
[2019-02-27] MEDS: SYMBICORT 160/4.5MCG INHALER 6GM INH SCH ×2 (07:58→21:00)
[2019-02-27] MEDS: lamoTRIgine 100MG TAB PO SCH (08:52)
[2019-02-27] MEDS: ALPRAZolam 0.5 MG TAB PO SCH ×2 (08:53→19:35)
[2019-02-27] MEDS: PHENAZOPYRIDINE 100 MG TAB PO SCH ×2 (08:54→19:36)
[2019-02-27] MEDS: MICONAZOLE-7 VAGINAL 2% CREAM 47.7 GM TOP SCH ×2 (08:55→19:38)
[2019-02-27] MEDS ORDERED: fentaNYL 75 MCG/HR PATCH TOP SCH (09:00)
[2019-02-27] MEDS ORDERED: FENTANYL REMOVAL DOCUMENTATION MISC XX SCH (10:15)
[2019-02-27] MEDS: fentaNYL CITRATE 1,000 MCG in NS 80 ML IV SCH (13:11)
[2019-02-27] MEDS: rOPINIRole 2MG TAB PO SCH (19:36)
[2019-02-27] MEDS: SENNA 8.6 MG TAB (SENOKOT) PO SCH (19:36)
[2019-02-28] MEDS: IPRATROPIUM 0.5MG/ALBUTEROL 2.5MG INH SOL UD 3ML (DUONEB)(J7620) NEB SCH ×5 (04:00→20:00)
[2019-02-28] MEDS: SYMBICORT 160/4.5MCG INHALER 6GM INH SCH ×2 (07:45→20:45)
[2019-02-28] MEDS: diphenhydrAMINE 50 MG CAP PO PRN ×2 (07:56→16:26)
[2019-02-28] MEDS: LORazepam 1 MG TAB PO PRN ×2 (07:56→17:35)
[2019-02-28] MEDS: oxyCODONE 5MG TAB PO PRN ×2 (07:57→17:35)
[2019-02-28] MEDS: MICONAZOLE-7 VAGINAL 2% CREAM 47.7 GM TOP SCH ×2 (12:24→21:00)
[2019-02-28] MEDS: PHENAZOPYRIDINE 100 MG TAB PO SCH ×2 (12:24→21:00)
[2019-02-28] MEDS: ALPRAZolam 0.5 MG TAB PO SCH ×2 (12:24→21:00)
[2019-02-28] MEDS: lamoTRIgine 100MG TAB PO SCH (12:24)
[2019-02-28] MEDS: fentaNYL CITRATE 1,000 MCG in NS 80 ML IV SCH (13:57)
[2019-02-28] MEDS: SENNA 8.6 MG TAB (SENOKOT) PO SCH (21:00)
[2019-02-28] MEDS: rOPINIRole 2MG TAB PO SCH (21:00)
[2019-03-01] MEDS: LORazepam 1 MG TAB PO PRN ×4 (00:51→19:09)
[2019-03-01] MEDS: IPRATROPIUM 0.5MG/ALBUTEROL 2.5MG INH SOL UD 3ML (DUONEB)(J7620) NEB PRN ×2 (00:55→15:22)
[2019-03-01] MEDS: oxyCODONE 5MG TAB PO PRN ×4 (01:27→20:47)
[2019-03-01] MEDS: guaiFENesin SYRUP 200 MG/10 ML UDC PO PRN (01:27)
[2019-03-01] MEDS: diphenhydrAMINE 50 MG CAP PO PRN ×2 (01:40→08:20)
[2019-03-01] MEDS: IPRATROPIUM 0.5MG/ALBUTEROL 2.5MG INH SOL UD 3ML (DUONEB)(J7620) NEB SCH ×7 (04:00→23:32)
[2019-03-01] MEDS: SYMBICORT 160/4.5MCG INHALER 6GM INH SCH ×2 (07:29→21:00)
[2019-03-01] MEDS: ALPRAZolam 0.5 MG TAB PO SCH ×2 (08:20→20:46)
[2019-03-01] MEDS: lamoTRIgine 100MG TAB PO SCH (08:20)
[2019-03-01] MEDS: PHENAZOPYRIDINE 100 MG TAB PO SCH ×2 (08:20→20:46)
[2019-03-01] MEDS: MICONAZOLE-7 VAGINAL 2% CREAM 47.7 GM TOP SCH ×2 (08:46→21:00)
[2019-03-01] MEDS: diphenhydrAMINE 12.5MG/5ML ELIXIR UDC PO PRN (13:48)
[2019-03-01] MEDS: fentaNYL CITRATE 1,000 MCG in NS 80 ML IV SCH (14:31)
[2019-03-01] MEDS: rOPINIRole 2MG TAB PO SCH (20:46)
[2019-03-01] MEDS: SENNA 8.6 MG TAB (SENOKOT) PO SCH (20:46)
[2019-03-02] MEDS: IPRATROPIUM 0.5MG/ALBUTEROL 2.5MG INH SOL UD 3ML (DUONEB)(J7620) NEB SCH ×6 (03:56→22:52)
[2019-03-02] MEDS: LORazepam 2 MG/ML VIAL (J2060) IV PRN ×6 (06:59→20:51)
[2019-03-02] MEDS: SYMBICORT 160/4.5MCG INHALER 6GM INH SCH ×2 (08:18→20:34)
[2019-03-02] MEDS: lamoTRIgine 100MG TAB PO SCH (08:34)
[2019-03-02] MEDS: PHENAZOPYRIDINE 100 MG TAB PO SCH ×2 (08:34→20:49)
[2019-03-02] MEDS: ALPRAZolam 0.5 MG TAB PO SCH ×3 (08:34→20:52)
[2019-03-02] MEDS: oxyCODONE 5MG TAB PO PRN ×3 (08:35→20:55)
[2019-03-02] MEDS: MICONAZOLE-7 VAGINAL 2% CREAM 47.7 GM TOP SCH (08:35)
[2019-03-02] MEDS: diphenhydrAMINE 12.5MG/5ML ELIXIR UDC PO PRN (08:35)
[2019-03-02] MEDS ORDERED: guaiFENesin DM LIQ 10ML UD PO PRN (08:45)
[2019-03-02] MEDS ORDERED: DEXTROMETHORPHAN 60MG/10ML SUSP 90ML BTL(DELSYM) PO PRN (08:45)
[2019-03-02] MEDS: fentaNYL CITRATE 1,000 MCG in NS 80 ML IV SCH (15:18)
[2019-03-02] MEDS ORDERED: FLUCONAZOLE 400 MG in IV 1 EA IV ONE (16:00)
[2019-03-02] MEDS: SENNA 8.6 MG TAB (SENOKOT) PO SCH (20:49)
[2019-03-02] MEDS: rOPINIRole 2MG TAB PO SCH (20:49)
[2019-03-03] MEDS: IPRATROPIUM 0.5MG/ALBUTEROL 2.5MG INH SOL UD 3ML (DUONEB)(J7620) NEB SCH ×5 (04:00→20:00)
[2019-03-03] MEDS: LORazepam 2 MG/ML VIAL (J2060) IV PRN ×6 (06:11→22:01)
[2019-03-03] MEDS: oxyCODONE 5MG TAB PO PRN (06:37)
[2019-03-03] MEDS: SYMBICORT 160/4.5MCG INHALER 6GM INH SCH ×2 (08:55→20:44)
[2019-03-03] MEDS: lamoTRIgine 100MG TAB PO SCH (09:02)
[2019-03-03] MEDS: PHENAZOPYRIDINE 100 MG TAB PO SCH ×2 (09:02→21:03)
[2019-03-03] MEDS: ALPRAZolam 0.5 MG TAB PO SCH ×3 (09:02→21:03)
[2019-03-03] MEDS: diphenhydrAMINE 12.5MG/5ML ELIXIR UDC PO PRN (09:12)
[2019-03-03] MEDS: fentaNYL CITRATE 1,000 MCG in NS 80 ML IV SCH ×2 (09:25→21:03)
[2019-03-03] MEDS: SENNA 8.6 MG TAB (SENOKOT) PO SCH (21:03)
[2019-03-03] MEDS: rOPINIRole 2MG TAB PO SCH (21:03)
[2019-03-04] MEDS: IPRATROPIUM 0.5MG/ALBUTEROL 2.5MG INH SOL UD 3ML (DUONEB)(J7620) NEB SCH ×7 (04:00→23:22)
[2019-03-04] MEDS: fentaNYL CITRATE 1,000 MCG in NS 80 ML IV SCH ×4 (05:22→20:40)
[2019-03-04] MEDS: LORazepam 2 MG/ML VIAL (J2060) IV PRN ×8 (05:36→23:06)
[2019-03-04] MEDS: SYMBICORT 160/4.5MCG INHALER 6GM INH SCH ×2 (07:52→21:00)
[2019-03-04] MEDS: ALPRAZolam 0.5 MG TAB PO SCH ×4 (08:51→22:58)
[2019-03-04] MEDS: lamoTRIgine 100MG TAB PO SCH (08:51)
[2019-03-04] MEDS: PHENAZOPYRIDINE 100 MG TAB PO SCH ×2 (08:51→21:00)
[2019-03-04] MEDS: rOPINIRole 2MG TAB PO SCH ×2 (21:00→23:01)
[2019-03-04] MEDS: SENNA 8.6 MG TAB (SENOKOT) PO SCH (21:00)
[2019-03-04] MEDS: oxyCODONE 5MG TAB PO PRN (23:01)
[2019-03-05] MEDS: LORazepam 2 MG/ML VIAL (J2060) IV PRN ×11 (00:34→23:14)
[2019-03-05] MEDS: fentaNYL CITRATE 1,000 MCG in NS 80 ML IV SCH ×4 (02:57→19:40)
[2019-03-05] MEDS: IPRATROPIUM 0.5MG/ALBUTEROL 2.5MG INH SOL UD 3ML (DUONEB)(J7620) NEB SCH ×5 (03:35→20:00)
[2019-03-05] MEDS: SCOPOLAMINE 1MG TRANSDERMAL PATCH TOP PRN (06:58)
[2019-03-05] MEDS: SYMBICORT 160/4.5MCG INHALER 6GM INH SCH ×2 (09:00→20:11)
[2019-03-05] MEDS: lamoTRIgine 100MG TAB PO SCH (09:00)
[2019-03-05] MEDS: ALPRAZolam 0.5 MG TAB PO SCH ×3 (09:00→21:00)
[2019-03-05] MEDS: PHENAZOPYRIDINE 100 MG TAB PO SCH ×2 (09:00→21:00)
--- NOTE | 2019-03-05 11:41 | IPNPDOC ---
Text Note Date of Service The patient was seen on 03/05/19. NOTE Subjective: Patient was seen today sleeping at bedside. I talked to the patient's sister who says that she has been very anxious throughout the night. When the nurses come in every hour and give her Ativan, she is more comfortable. She is currently on a fentanyl drip which does not seem to be high enough to really keep her comfortable. We are continuing to titrate the drip in order to maximize her comfort and not sedate her too much. Patient is beginning to have rattling in the back of her throat. Patient has been sleeping more than she had a week ago. 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 Patient's heart is a regular rate and rhythm with no murmurs. Assessment/Plan 1. End stage COPD with hypoxic respiratory failure. Patient is comfort measures only and we will continue with the fentanyl drip. We are increasing to 17 ML's per hour and if this is not keep her comfortable we will increase to 21 ML's per hour. 2. Chronic pain. Fentanyl drip as above. 3. 3 of DVT and PE. Patient is on anticoagulation due to PATTERN DRAFTER. 4. Anxiety. Patient's Xanax as scheduled twice a day patient also has Ativan as needed. DVT prophy: None due to her PATTERN DRAFTER Dispo: Pending placement at hospice house. I saw and evaluated the patient. I agree with the findings and plan of care as documented in the above note VS,Fishbone, I+O VS, Fishbone, I+O Vital Signs Date Time Temp Pulse Resp B/P (MAP) Pulse Ox O2 Delivery O2 Flow Rate FiO2 03/04/19 22:00 3.0 03/03/19 07:10 18 I&O- Last 24 Hours up to 6 AM 03/05/19 06:00 Intake Total 168 ml Output Total 450 ml Balance -282 ml FEDERICO STEWART DO Mar 05, 2019 11:41 SILVESTRE SUTTON MD Mar 07, 2019 09:53
[2019-03-05] MEDS: SENNA 8.6 MG TAB (SENOKOT) PO SCH (21:00)
[2019-03-05] MEDS: rOPINIRole 2MG TAB PO SCH (21:00)
[2019-03-06] MEDS: IPRATROPIUM 0.5MG/ALBUTEROL 2.5MG INH SOL UD 3ML (DUONEB)(J7620) NEB SCH
[2019-03-06] MEDS: fentaNYL CITRATE 1,000 MCG in NS 80 ML IV SCH (00:28)
--- NOTE | 2019-03-06 11:52 | DS.PDOC ---
Discharge Summary General Date of Admission Feb 11, 2019 at 10:30 Date of Discharge 03/06/19 Primary Care Physician: PATRICK ELLINGTON DO Attending Physician: SILVESTRE SUTTON MD Discharge Summary PROCEDURES PERFORMED DURING STAY: None. ADMITTING/DISCHARGE DIAGNOSES: 1. End-stage COPD with hypoxic respiratory failure 2. Chronic pain 3. History of DVT and pulmonary embolism 4. Anxiety COMPLICATIONS/CHIEF COMPLAINT: Shortness of breath HISTORY OF PRESENT ILLNESS/HOSPITAL COURSE: Patient is a 58-year-old female who presented to the hospital with increased shortness of breath and running out of her pain medication. Patient had recently signed a MOLST form for comfort measures only with her primary care provider and was in the process of setting up outpatient hospice however, there was issues with her medical insurance. There was also issues with the patient sitting at home_measures only status given the fact that she lives alone and does not have a lot of support. Based on this, it was recommended the patient be admitted into the hospital for transition to hospice house. Throughout the patient's hospitalization there was issues finding a bed at hospice house. Patient adamantly refused to go to a nursing facility with hospice. We had a very difficult time controlling the patient's pain level and anxiety throughout her hospitalization. Patient was eventually started on a fentanyl drip for comfort. We were able to finally give her some comfort at a dose of 210 mcg/h as well as 2 mg of Ativan IV per hour. Patient ended up passing away at 01:40 on 03/06/2019. The attending physician was notified. Patient from complications of chronic obstructive pulmonary disease and hypoxic respiratory failure. I saw and evaluated the patient. I agree with the findings and plan of care as documented in the documenters note. I spent 45 minutes coordinating this patient's end of life care Vital Signs/I&Os Vital Signs Date Time Temp Pulse Resp B/P (MAP) Pulse Ox O2 Delivery O2 Flow Rate FiO2 03/05/19 20:00 3.0 03/03/19 07:10 18 I&O- Last 24 Hours up to 6 AM 03/06/19 06:00 Intake Total 0 ml Output Total 400 ml Balance -400 ml Discharge Medications Scheduled Alprazolam (Alprazolam) 0.5 Mg Tablet, 0.5 MG PO BID, (Reported) Aspirin (Aspirin EC) 81 Mg Tabec, 81 MG PO DAILY, (Reported) Buspirone HCl (Buspirone HCl) 5 Mg Tablet, 5 MG PO TID, (Reported) Cholecalciferol (Vitamin D3) (Vitamin D3) 2,000 Unit Tab, 2,000 UNIT PO DAILY, (Reported) Escitalopram Oxalate (Escitalopram Oxalate) 20 Mg Tab, 20 MG PO DAILY, (Reported) Ferrous Sulfate (Ferrous Sulfate) 325 Mg Tab, 325 MG PO DAILY, (Reported) Fluticasone/Vilanterol (Breo Ellipta 200-25 Mcg INH) 1 Inh Inh, 1 PUFF INH DAILY, (Reported) Folic Acid (Folic Acid) 1 Mg Tab, 1 MG PO DAILY, (Reported) Lamotrigine (Lamotrigine) 150 Mg Tab, 150 MG PO DAILY, (Reported) Midodrine HCl (Midodrine HCl) 5 Mg Tablet, 5 MG PO TID, (Reported) 0800/1200/1600 Omeprazole (Omeprazole) 40 Mg Cap, 40 MG PO BID, (Reported) Rivaroxaban (Xarelto) 10 Mg Tab, 10 MG PO DAILY, (Reported) Ropinirole HCl (Ropinirole HCl) 2 Mg Tablet, 2 MG PO QHS, (Reported) Sennosides (Senna Lax) 8.6 Mg Tablet, 2 TAB PO QHS, (Reported) Simvastatin (Zocor) 20 Mg Tab, 20 MG PO QHS, (Reported) Spironolactone (Spironolactone) 50 Mg Tablet, 100 MG PO BID, (Reported) NEW MEDICATION Torsemide (Torsemide) 20 Mg Tablet, 20 MG PO DAILY, (Reported) Scheduled PRN Albuterol Sulf (Albuterol Sulfate) 2.5 Mg/3 Ml Vial.neb, 2.5 MG INH Q4H PRN for SHORTNESS OF BREATH, (Reported) Albuterol Sulfate (Ventolin Hfa) 108 Mcg/Act Aer, 2 PUFF INH Q4H PRN for SHORTNESS OF BREATH, (Reported) Nitroglycerin (Nitrostat) 0.4 Mg Subl, 0.4 MG SL NITRO PRN for CHEST PAIN, (Reported) Ondansetron HCl (Ondansetron HCl) 4 Mg Tab, 4 MG PO Q6H PRN for NAUSEA, (Reported) Miscellaneous Medications Oxycodone HCl/Acetaminophen (Oxycodone-Acetaminophen 5-325) 1 Each Tablet, (Reported) Allergies Coded Allergies: morphine (Verified Allergy, Severe, SOB, itching, rash, 02/07/19) Penicillins (Verified Allergy, Intermediate, Hives, 02/07/19) Quinolones (Verified Allergy, Intermediate, Hives, 02/07/19) Sulfa (Sulfonamide Antibiotics) (Verified Allergy, Intermediate, Hives, 02/07/19) cephalexin (Verified Allergy, Intermediate, Hives, 02/07/19) clavulanic acid (Verified Allergy, Intermediate, Hives, 02/07/19) erythromycin base (Verified Allergy, Intermediate, Hives, 02/07/19) moxifloxacin (Verified Allergy, Intermediate, Hives, 02/07/19) methylprednisolone (Verified Allergy, Mild, RASH WITH IV, 02/07/19) levofloxacin (Verified Allergy, Unknown, 02/07/19) iodine (Verified Adverse Reaction, Intermediate, Acute renal insufficiency , 02/07/19) iopamidol (Verified Adverse Reaction, Intermediate, Acute renal insufficiency, 02/07/19) gabapentin (Verified Adverse Reaction, Mild, Upset stomach, 02/07/19) FEDERICO STEWART DO Mar 06, 2019 11:51 SILVESTRE SUTTON MD Mar 07, 2019 09:56
== END 2019-03-06 01:40 | disposition expired | DRG 862 ==
LOC: EDBD 14:57 → M ED 14:57 → M ED INP 14:58 → M MSPAV 19:40 → M ICU 21:55 → M MSPAV 02-08 16:31 → OBSVTOIN 02-11 10:30
PROVIDERS: ADMIT Internal Medicine; ATTEND Internal Medicine
DX: Z51.5 Encounter for palliative care (principal); J96.21 Acute and chronic respiratory failure with hypoxia; I11.0 Hypertensive heart disease with heart failure; I50.32 Chronic diastolic (congestive) heart failure; Z99.81 Dependence on supplemental oxygen; E66.01 Morbid (severe) obesity due to excess calories; Z68.41 Body mass index [BMI] 40.0-44.9, adult; Z66 Do not resuscitate; J44.9 Chronic obstructive pulmonary disease, unspecified; G89.29 Other chronic pain; D50.9 Iron deficiency anemia, unspecified; K21.9 Gastro-esophageal reflux disease without esophagitis; F41.9 Anxiety disorder, unspecified; Z79.82 Long term (current) use of aspirin; Z79.01 Long term (current) use of anticoagulants; Z86.711 Personal history of pulmonary embolism; Z79.899 Other long term (current) drug therapy; Z86.718 Personal history of other venous thrombosis and embolism; Z88.0 Allergy status to penicillin; Z88.1 Allergy status to other antibiotic agents; Z88.2 Allergy status to sulfonamides; Z88.5 Allergy status to narcotic agent; Z88.8 Allergy status to other drugs, medicaments and biological substances